=== PATIENT | male | born 1940 | race Caucasian/White ===

== ENCOUNTER 2020-04-23 18:34 | Emergency (ER) | payer MEDICARE, SELFPAY ==
--- NOTE | 2020-04-23 18:44 | ED.GENADULT ---
HPI - General Adult General Chief complaint: Wound/Laceration Stated complaint: laceration Time Seen by Provider: 04/23/20 18:44 Source: patient Mode of arrival: ambulatory Limitations: no limitations History of Present Illness HPI narrative: 79-year-old male patient presents to the [facility] with complaints of a laceration to the third left finger. Patient states he was cutting some ribs with a knife and cut his finger. Patient unknown when his last tetanus was. Patient denies any numbness or tingling to the fingertips. Patient states he is able to bend fingers well. Patient does have history of diabetes. Related Data Home Medications Medication Instructions Recorded Confirmed allopurinol 300 mg tablet 300 mg PO DAILY 09/05/19 01/03/20 amlodipine 10 mg tablet 5 mg PO HS 09/05/19 01/03/20 levothyroxine 100 mcg tablet 100 mcg PO DAILY 09/05/19 01/03/20 oxycodone-acetaminophen 5 mg-325 1 tablet PO Q6H PRN 09/05/19 01/03/20 mg tablet suvorexant 15 mg tablet 15 mg PO ONCE 09/05/19 01/03/20 testosterone 20.25 mg/1.25 gram 2 pump TOPICAL DAILY 09/05/19 01/03/20 (1.62 %) transdermal gel pump candesartan 32 mg PO DAILY 10/04/19 01/03/20 carvedilol 25 mg PO DAILY 10/04/19 01/03/20 loratadine 10 mg PO DAILY 10/04/19 01/03/20 omega-3 fatty acids [Fish Oil 1,000 mg PO HS 10/04/19 01/03/20 Concentrate] aspirin 325 mg tablet 325 mg PO DAILY 11/27/19 01/03/20 Centrum Silver 04/23/20 Metamucil 04/23/20 trazodone 04/23/20 Allergies Allergy/AdvReac Type Severity Reaction Status Date / Time MARIA LUZ Inhibitors Allergy Mild Cough Verified 01/03/20 09:19 lisinopril Allergy Mild Cough Verified 01/03/20 09:19 Review of Systems Review of Systems: Narrative: CONSTITUTIONAL: Denies fever, chills, or sweats. EYES: Denies visual changes, redness, or discharge. ENT: Denies rhinorrhea, congestion, sore throat, or otalgia. CARDIOVASCULAR: Denies chest pain, palpitations, or edema. RESPIRATORY: Denies cough or dyspnea. GASTROINTESTINAL: Denies abdominal pain, nausea, vomiting, or diarrhea. GENITOURINARY: Denies dysuria or hematuria. SKIN: Denies rash or itching. Positive laceration to left third finger MUSCULOSKELETAL: Denies back pain, joint pain, or myalgia. NEUROLOGIC: Denies headache, numbness, or weakness. PSYCHIATRIC: Denies anxiety or depression. 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 Prostate cancer screening Tingling of face Tingling of upper extremity Surgical History Surgical History History of total hip replacement Family History Family History Father Diabetes mellitus Family history of coronary artery disease Family history of diabetes mellitus in first degree relative Mother Family history of cardiovascular disease Family history of malignant neoplasm of brain Family history of heart disease in male family member before age 55 Social History Social History Smoking status: Former smoker Second hand tobacco smoke exposure: No Smoking end date: 11/01/05 Alcohol intake: current Substance use: never Substance use type: does not use Gender identity (if verbalized by the patient): Male Spiritual care concerns: No Agree to blood products: Yes Comment
[2020-04-23 18:45] VITALS: BP 139/75; PULSE 67; RESP 18; TEMP 36.5; O2SAT 96
[2020-04-23] MEDS: TETANUS,DIPHTHERIA,AC PERTUSSIS ADULT (0.5 ML) BOOSTRIX IM (18:53)
== END 2020-04-23 19:15 | disposition home or self-care (01) ==
PROVIDERS: Emergency Provider Nurse Practitioner Family; PCP Internal Medicine
DX: S61.215A Laceration without foreign body of left ring finger without damage to nail, initial encounter (principal); Z95.5 Presence of coronary angioplasty implant and graft; E11.9 Type 2 diabetes mellitus without complications; E03.9 Hypothyroidism, unspecified; Z87.891 Personal history of nicotine dependence; Z79.82 Long term (current) use of aspirin; Z79.84 Long term (current) use of oral hypoglycemic drugs; I25.10 Atherosclerotic heart disease of native coronary artery without angina pectoris; I10 Essential (primary) hypertension; Z85.51 Personal history of malignant neoplasm of bladder; Z86.73 Personal history of transient ischemic attack (TIA), and cerebral infarction without residual deficits; E78.2 Mixed hyperlipidemia; Z96.649 Presence of unspecified artificial hip joint; Z23 Encounter for immunization; W26.0XXA Contact with knife, initial encounter; Y93.G1 Activity, food preparation and clean up
CPT/HCPCS: 90471; 90715; 99213; G0463

== ENCOUNTER 2021-02-25 11:24 | Outpatient (CLI) | payer MEDICARE, SELFPAY ==
--- NOTE | 2021-02-25 11:30 | ECG_ITS ---
Measurements Intervals [place] Rate: 57 P: -18 ME: 238 QRS: -24 QRSD: 110 T: -4 QT: 417 QTc: 409 Interpretive Statements SINUS BRADYCARDIA WITH FIRST DEGREE AV BLOCK BORDERLINE R WAVE PROGRESSION, ANTERIOR LEADS INFERIOR INFARCT, AGE INDETERMINATE BASELINE WANDER- V4 ABNORMAL ECG Electronically Signed On 02-25-2021 12:16:54 CDT by Alfredo Contreras D.O.
[2021-02-25 11:54] LABS: Basophils Absolute Auto 0.1 K/mm3 (0.0-0.1); Basophils Percent Auto 0.8 % (0.2-1.2); Eosinophils Absolute Auto 0.2 K/mm3 (0-0.3); Eosinophils Percent Auto 2.9 % (0-4.4); Hematocrit 44.9 % (42.0-52.0); Hemoglobin 15.1 g/dL (14.0-18.0); Immature Granulocyte Absolute 0.03 K/mm3 (0.00-0.031); Immature Granulocyte Percent A 0.5 % (0-0.5); Immature Platelet Fraction Pct 3.3 % (0.9-11.2); Lymphocytes Absolute Auto 1.28 K/mm3 (0.9-3.2); Lymphocytes Percent Auto 19.5 % (18.3-44.2); Mean Corpuscular HGB Conc 33.6 g/dl (32-36); Mean Corpuscular Hemoglobin 31.7 pg (26-34); Mean Corpuscular Volume 94.1 fl (80-100); Mean Platelet Volume 9.8 fl (7.4-10.4); Monocytes Absolute Auto 0.8 K/mm3 (0.1-0.6); Monocytes Percent Auto 12.5 % (2.6-8.5); Neutrophils Absolute Auto 4.2 K/mm3 (1.3-6.7); Neutrophils Percent Auto 63.8 % (45.5-73.1); Platelet Count Result 145 k/mm3 (150-375); Red Blood Count 4.77 M/mm3 (4.6-6.20); Red Cell Distribution Width 13.6 % (11.5-14.5); White Blood Count 6.6 K/mm3 (4.5-10.0)
[2021-02-25 12:03] LABS: Prothrombin Time 13.6 Seconds (11.1-14.7)
[2021-02-25 12:04] LABS: Partial Thromboplastin Time 30.8 SECONDS (22.3-36.8)
== END 2021-02-25 11:25 | disposition home or self-care (01) ==
LOC: ANHSURGERY 11:31
PROVIDERS: PCP Internal Medicine; Visit Provider Urology
DX: C67.9 Malignant neoplasm of bladder, unspecified (principal); I10 Essential (primary) hypertension; Z01.818 Encounter for other preprocedural examination; I44.0 Atrioventricular block, first degree
CPT/HCPCS: 36415; 85025; 85055; 85610; 85730; 87086; 93005

== ENCOUNTER → 2021-03-01 02:07 | Outpatient (CLI) | payer MEDICARE, SELFPAY ==
[2021-03-01 19:16] LABS: SARS-CoV-2 RNA PCR Negative
== END ==
PROVIDERS: PCP Internal Medicine; Visit Provider Urology
DX: Z01.812 Encounter for preprocedural laboratory examination (principal); Z20.822 Contact with and (suspected) exposure to COVID-19
CPT/HCPCS: C9803; U0003; U0005

== ENCOUNTER 2021-03-04 01:24 | Day surgery (SDC) | payer MEDICARE, SELFPAY ==
[2021-02-20 14:23] VITALS: BMI 39.6
[2021-03-04] VITALS (19 sets, daily range): BP systolic 110–160; BP diastolic 57–90; PULSE 50–64; RESP 12–20; TEMP 35.9–36.7; O2SAT 95–100
[2021-03-04] MEDS: LACTATED RINGERS 1,000 ML 30 ML IV CONT (12:25)
[2021-03-04 12:34] LABS: Glucose Point of Care 145 (65-105)
--- NOTE | 2021-03-04 13:06 | WPDANESEPPF ---
Anes - Initial Pre Proc Eval Procedure: Operation Date: 03/04/21 13:45 Proposed Procedures p Cystoscopy, Bladder Biopsy - Bayron Fajardo MD s Trans Urethral Resection Bladder Tumor - Bayron Fajardo MD Date/Time: 03/04/21 13:06 Surgeon: Bayron Fajardo MD Pre Op Diagnosis: bladder CA Patient Data Age: 80 Gender: M Height: 5 ft 11 in Weight: 128.4 kg Last Vital Signs Temp 36.0 C L 03/04/21 12:30 Pulse 55 L 03/04/21 12:30 Resp 16 03/04/21 12:30 BP 141/74 H 03/04/21 12:30 Pulse Ox 100 03/04/21 12:30 Allergies Allergy/AdvReac Type Severity Reaction Status Date / Time MARIA LUZ Inhibitors AdvReac Mild Cough Verified 03/04/21 12:30 lisinopril AdvReac Mild Cough Verified 03/04/21 12:30 morphine AdvReac Mild Itching Verified 03/04/21 12:30 Home Medications Medication Instructions Recorded Confirmed Type testosterone 20.25 mg/1.25 gram 2 pump TOPICAL DAILY 09/05/19 02/20/21 History (1.62 %) transdermal gel pump loratadine 10 mg PO DAILY 10/04/19 02/20/21 History blood-glucose meter #1 each 11/20/19 01/28/21 Rx aspirin 325 mg tablet 325 mg PO DAILY 11/27/19 03/04/21 History lancets 33 gauge #100 each 01/02/20 01/28/21 Rx Centrum Silver 1 tab-cap PO DAILY 04/23/20 02/20/21 History carvedilol 25 mg tablet 25 mg PO BID #180 tablet 05/08/20 03/04/21 Rx omega-3 fatty acids 1,000 mg 3,000 mg PO DAILY cap 05/16/20 02/20/21 History capsule blood sugar diagnostic #100 each 05/22/20 01/28/21 Rx suvorexant 15 mg tablet 15 mg PO ONCE PRN 09/19/20 02/20/21 History allopurinol 300 mg tablet 300 mg PO DAILY #90 tablet 02/03/21 02/20/21 Rx docusate sodium 100 mg capsule 100 mg PO DAILY PRN 02/04/21 02/20/21 History Tradjenta 5 mg PO QAM 02/20/21 02/20/21 History amlodipine 5 mg PO HS 02/20/21 02/20/21 History amlodipine 10 mg PO QAM 02/20/21 03/04/21 History atorvastatin 80 mg PO DAILY 02/20/21 02/20/21 History canagliflozin-metformin [Invokamet 1 tablet PO QAM 02/20/21 02/20/21 History XR] candesartan 32 mg PO QAM 02/20/21 02/20/21 History celecoxib 200 mg PO DAILY 02/20/21 02/20/21 History glimepiride 2 mg PO BID 02/20/21 02/20/21 History hydrochlorothiazide 25 mg PO QAM 02/20/21 02/20/21 History levothyroxine [Synthroid] 100 mcg PO QAM 02/20/21 03/04/21 History psyllium husk [Metamucil] 1.04 g PO HS 02/20/21 02/20/21 History Laboratory Tests 03/04/21 12:28 POC Capillary Glucose 145 mg/dl H mg/dl (65-105) Patient hx anesthesia problems: none Family hx anesthesia problems: none PMFSH Past Medical History Medical History ASHD (arteriosclerotic heart disease) Benign essential hypertension Bladder cancer Bladder cancer Body mass index (BMI) of 40.1 to 44.9 in adult Colon cancer screening DJD (degenerative joint disease), multiple sites DM type 2 (diabetes mellitus, type 2) Dysphagia Elevated homocysteine Encounter for Medicare annual wellness exam Encounter for routine adult health examination with abnormal findings Encounter for routine adult health examination without abnormal findings Hearing loss History of abdominal aortic aneurysm (AAA) had repaired now being watched History of CVA (cerebrovascular accident) Hospital discharge follow-up Hx of transient ischemic attack (TIA) Hypothyroidism (acquired) Mixed hyperlipidemia 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
--- NOTE | 2021-03-04 13:19 | WPDHPUPDATE1 ---
History and Physical Update Update Date/Time: 03/04/21 13:19 History and Physical has been reviewed, including an updated exam of the patient. There are NO changes in the patient's condition. Risks, benefits, and alternatives have been discussed and questions answered. Patient agrees to proceed with procedure. Proceed with transurethral resection of bladder tumor, bladder biopsy with fulguration
[2021-03-04] MEDS: ceFAZolin 3 GM/D5W 100 ML 100 ML IVPB (13:31)
--- NOTE | 2021-03-04 14:01 | PM.PROC ---
Procedure Note - Detailed Date of procedure: 03/04/21 Pre-op diagnosis: bladder CA Post-op diagnosis: same Procedure performed: Cystoscopy, bladder biopsy, fulguration Description of procedure: Patient is taken the operative suite and correctly identified. Once anesthesia was obtained he was placed in dorsal lithotomy position and prepped and draped usual sterile fashion. Twenty-two Bolivian scope was inserted in the bladder. He does have some lateral lobe hypertrophy. Upon entering the bladder he has an irregularity along the right lateral wall near the bladder neck as well as on the floor. We used a cold cup biopsy to biopsy these areas. We then used a rollerball to fulgurate the areas. Given the location of this lesion it did require quite a bit of torquing of the scope which cause some bleeding in the prostatic fossa. We fulgurated this area. Given this slight use we decided placed an [address] 10 cc were placed in balloon. This was connected to continuous bladder irrigation. If his urine is clear in recovery room he will be discharged home with a Ayala catheter and have it removed on in the office. He Anesthesia: GLMA Surgeon: Bayron Fajardo MD Drains: Yes Packing: No Pathology: yes Complications: No immediate complications Condition: stable Disposition: PACU
[2021-03-04 15:53] LABS: Glucose Point of Care 136 (65-105)
--- NOTE | 2021-03-04 17:25 | ADMGEN ---
This patient, Reynold Machado, was admitted to 3 [facility] Surg Room 320-01. Report received from SOLE Mcknight. Patient/family oriented to hospital policies and general routines including ID bracelet, bed and alarms, visiting hours, pain management, procedures, bathroom and other care routines, personal items, smoking policy, room service/diet, and visiting hours. Information on how to activate the Rapid Response Team has been discussed. Patient/Family are encouraged to report perceived risks to care and to ask questions if they do not understand what they are told or what they should do.
[2021-03-04] MEDS: DEXTROSE 5%/LACTATED RINGERS 1,000 ML 125 ML IV CONT (17:36)
[2021-03-04] MEDS: GLIMEPIRIDE 2 MG TABLET PO (18:35)
[2021-03-04] MEDS: carvediloL 25 MG TABLET PO (18:35)
[2021-03-04] MEDS: HYOSCYAMINE SULFATE 0.125 MG TABLET SUBLINGUAL (18:40)
[2021-03-04] MEDS: HYDROcodone/acetaminophen (*CRX) 5-325 MG TABLET 1 TAB PO (18:41)
[2021-03-04] MEDS: PSYLLIUM POWDER PACKET 1 PACKET PO (20:57)
[2021-03-04] MEDS: DOCUSATE SODIUM 100 MG CAPSULE PO (20:57)
[2021-03-04] MEDS: amLODIPine BESYLATE 5 MG TABLET PO (20:57)
[2021-03-04 22:26] LABS: Glucose Point of Care 246 (65-105)
[2021-03-05] VITALS: BP 143/68; PULSE 78; RESP 20; TEMP 36.3; O2SAT 96
[2021-03-05] MEDS: HYDROcodone/acetaminophen (*CRX) 5-325 MG TABLET 1 TAB PO (01:20)
[2021-03-05 04:00] VITALS: BP 149/70; PULSE 60; RESP 20; TEMP 36.6; O2SAT 93
[2021-03-05 05:59] LABS: Hematocrit 40.5 % (42.0-52.0); Hemoglobin 13.8 g/dL (14.0-18.0)
[2021-03-05 06:18] LABS: Anion Gap 3 mmol/L (8-16); Blood Urea Nitrogen 13 mg/dL (9-20); Calcium 9.2 mg/dL (8.4-10.2); Carbon Dioxide 31 mmol/L (22-30); Chloride 102 mmol/L (98-107); Estimated CRCL calculation 102 ml/min; Estimated Glomerular Filt Rate > 60; Glucose 136 mg/dL (75-110); Potassium 3.8 mmol/L (3.4-5.0); Sodium 136 mmol/L (137-145)
[2021-03-05] MEDS: LEVOTHYROXINE SODIUM 100 MCG TABLET PO (06:18)
--- NOTE | 2021-03-05 07:34 | WPDUROPN2 ---
Progress Note: A&P Assessment and Plan (1) Lesion of bladder: Code(s): N32.9 - Bladder disorder, unspecified Status: Acute Assessment and Plan: Urine is clear at this time. Will have a voiding trial today. Discharged home without Ayala catheter if able to void. Call for path results in 1 week. Subjective Subjective Date/Time Seen: 03/05/21 07:34 Post Op day: 1 ( Cysto with bladder biopsy fulguration) Principal diagnosis: bladder lesion Interval history: Mk is doing well this morning. Urine is clear almost no CBI. Review of Systems Review of Systems: All systems reviewed & are unremarkable except as noted in HPI and below Exam Const: General: cooperative and comfortable Chest: Chest palpation & inspection: normal inspection of the chest Resp: Effort & Inspection: normal respiratory effort Cardio: Rate: regular rate Rhythm: regular rhythm Urinary Catheter: Urinary Catheter: patent and draining and urine clear Objective Data Vital Signs Vital Signs: Vital Signs - 24 hr 03/04/21 12:30 03/04/21 14:04 03/04/21 14:15 Temperature 36.0 C L 36.2 C L Pulse Rate 55 L 55 L 51 L Respiratory Rate 16 15 14 Blood Pressure 141/74 H 160/79 H 156/90 H Pulse Oximetry 100 100 100 03/04/21 14:30 03/04/21 14:45 03/04/21 15:00 Temperature Pulse Rate 52 L 50 L 52 L Respiratory Rate 14 12 14 Blood Pressure 143/72 H 146/76 H 136/73 Pulse Oximetry 96 97 99 03/04/21 15:15 03/04/21 15:30 03/04/21 15:45 Temperature Pulse Rate 56 L 52 L 55 L Respiratory Rate 16 16 16 Blood Pressure 147/71 H 147/71 H 136/61 Pulse Oximetry 97 97 97 03/04/21 15:55 03/04/21 16:25 03/04/21 16:50 Temperature Pulse Rate 52 L 55 L 51 L Respiratory Rate 20 20 20 Blood Pressure 152/57 H 143/62 H 143/61 H Pulse Oximetry 03/04/21 17:10 03/04/21 17:20 03/04/21 17:35 Temperature 36.7 C 36.7 C Pulse Rate 58 L 58 L 64 Respiratory Rate 20 16 16 Blood Pressure 140/62 152/75 H 143/72 H Pulse Oximetry 97 97 05/04/21 18:05 03/04/21 18:35 03/04/21 19:05 Temperature 36.6 C 36.7 C Pulse Rate 56 L 64 59 L Respiratory Rate 16 16 Blood Pressure 133/62 110/67 Pulse Oximetry 98 95 03/04/21 20:00 03/05/21 00:00 03/05/21 04:00 Temperature 35.9 C L 36.3 C L 36.6 C Pulse Rate 51 L 78 60 Respiratory Rate 18 20 20 Blood Pressure 145/63 H 143/68 H 149/70 H Pulse Oximetry 99 96 93 Intake/Output Intake/Output: Intake & Output 03/02/21 03/03/21 03/04/21 03/05/21 23:59 23:59 23:59 23:59 Intake Total 970 800 Output Total 2395 525 Balance -1425 275 Meds/Results Medications: Active Medications Generic Name Dose Route Start Last Admin Trade Name Freq PRN Reason Stop Dose Admin Hydrocodone Bitart/Acetaminophen 1 tab 03/04/21 17:14 03/05/21 01:20 Hydrocodone/Acetaminophen (*Crx) 5-325 Mg Tablet PO 1 tab Q4H PRN Administration Pain Rated 1-6 Allopurinol 300 mg 03/05/21 09:00 Allopurinol 300 Mg Tablet PO DAILY [facility] Amlodipine Besylate 5 mg 03/04/21 21:00 03/04/21 20:57 Amlodipine Besylate 5 Mg Tablet PO 5 mg HS [facility] Administration Amlodipine Besylate 10 mg 03/05/21 09:00 Amlodipine Besylate 5 Mg Tablet PO QAM [facility] Atorvastatin Calcium 80 mg 03/05/21 09:00 Atorvastatin 40 Mg Tablet PO DAILY [facility] Canagliflozin 100 mg 03/05/21 08:00 Canagliflozin 100 Mg Tablet PO DAILY@0800 [facility] Candesartan Cilexetil 32 mg 03/05/21 09:00 Candesartan Cilexetil 16 Mg Tablet PO 04/04/21 09:01 [facility] Car[facility] 25 mg 03/04/21 17:14 03/04/21 18:35 Carvedilol 25 Mg Tablet PO 25 mg BIDWM [facility] Administration Celecoxib 200 mg 03/05/21 09:00 Celecoxib 200 Mg Capsule PO DAILY [facility] Cephalexin HCl 500 mg 03/05/21 13:00 Cephalexin 500 Mg Capsule PO QID [facility] Docusate Sodium 100 mg 03/04/21 17:14 Docusate Sodium 100 Mg Capsule PO DAILY PRN PRN constipation Docusate Sodium 1
[2021-03-05 08:00] VITALS: BP 140/60; PULSE 53; RESP 20; TEMP 36.7; O2SAT 97
[2021-03-05] MEDS: CELECOXIB 200 MG CAPSULE PO (08:55)
[2021-03-05] MEDS: ATORVASTATIN 40 MG TABLET 80 MG PO (08:55)
[2021-03-05] MEDS: CANDESARTAN CILEXETIL 16 MG TABLET 32 MG PO (08:55)
[2021-03-05] MEDS: hydroCHLOROthiazide 25 MG TABLET PO (08:55)
[2021-03-05] MEDS: allopurinoL 300 MG TABLET PO (08:56)
[2021-03-05] MEDS: amLODIPine BESYLATE 5 MG TABLET 10 MG PO (08:56)
[2021-03-05] MEDS: DOCUSATE SODIUM 100 MG CAPSULE PO (08:56)
[2021-03-05 08:57] VITALS: PULSE 60
[2021-03-05] MEDS: metFORMIN HCL XR 500 MG TAB.SR.24H 1000 MG PO (08:57)
[2021-03-05] MEDS: CANAGLIFLOZIN 100 MG TABLET PO (08:57)
[2021-03-05] MEDS: LORATADINE 10 MG TABLET PO (08:57)
[2021-03-05] MEDS: carvediloL 25 MG TABLET PO (08:57)
[2021-03-05] MEDS: GLIMEPIRIDE 2 MG TABLET PO (08:57)
--- NOTE | 2021-03-05 09:33 | WPDANESPN ---
Anes - Prog Note Post-Op Date/Time: 03/05/21 09:33 Cardiovascular status: normal Respiratory status: normal Airway patency: baseline Mental status: baseline Vital Signs: Last Vital Signs Temp 36.7 C 03/05/21 08:00 Pulse 60 03/05/21 08:57 Resp 20 03/05/21 08:00 BP 140/60 03/05/21 08:00 Pulse Ox 97 03/05/21 08:00 Pain Score (VAS): 2/10 I/O: Intake & Output 03/04/21 03/05/21 03/05/21 23:59 07:59 15:59 Intake Total 970 800 360 Output Total 2395 525 Balance -1425 275 360 Laboratory Tests 03/05/21 05:40 03/05/21 05:40 03/04/21 03/04/21 03/04/21 12:28 14:11 20:55 Hgb Hct Sodium Potassium Chloride Carbon Dioxide Anion Gap BUN Creatinine Estim Creat Clear Calc Estimated GFR Glucose POC Capillary Glucose 145 H 136 H 246 H Calcium 03/05/21 03/05/21 05:40 05:40 Hgb 13.8 L Hct 40.5 L Sodium 136 L Potassium 3.8 Chloride 102 Carbon Dioxide 31 H Anion Gap 3 L BUN 13 D Creatinine 0.70 Estim Creat Clear Calc 102 Estimated GFR > 60 Glucose 136 H POC Capillary Glucose Calcium 9.2 Post-procedural complaints: none Patient Feedback: Patient satisfied with anesthetic care.
[2021-03-05 12:00] VITALS: BP 142/61; PULSE 61; RESP 20; TEMP 36.6; O2SAT 98
== END 2021-03-05 14:45 | disposition home or self-care (01) ==
LOC: ANHSURGERY 14:05 → ANH3MEDSUR 17:16
PROVIDERS: PCP Internal Medicine; Visit Provider Urology
PROC: 0TBB8ZX Excision of Bladder, Via Natural or Artificial Opening Endoscopic, Diagnostic (ICD-10-PCS; CPT 52204; principal; 2021-03-04 13:45)
DX: N30.30 Trigonitis without hematuria (principal); N30.20 Other chronic cystitis without hematuria; I10 Essential (primary) hypertension; I25.10 Atherosclerotic heart disease of native coronary artery without angina pectoris; E11.9 Type 2 diabetes mellitus without complications; E03.9 Hypothyroidism, unspecified; E78.2 Mixed hyperlipidemia; Z86.73 Personal history of transient ischemic attack (TIA), and cerebral infarction without residual deficits; Z87.891 Personal history of nicotine dependence; E66.01 Morbid (severe) obesity due to excess calories; Z68.39 Body mass index [BMI] 39.0-39.9, adult; Z85.51 Personal history of malignant neoplasm of bladder; Z79.84 Long term (current) use of oral hypoglycemic drugs; Z79.82 Long term (current) use of aspirin; Z20.822 Contact with and (suspected) exposure to COVID-19
CPT/HCPCS: 52204; 36415; 80048; 82948; 85014; 85018; 85025; 85055; 85610; 85730; 87086; 88305; 93005; A9270; C9803; J0690; J2405; J2704; J3010; J7120; J7121; U0003; U0005

== ENCOUNTER 2021-07-16 09:36 | Outpatient (CLI) | payer MEDICARE, SELFPAY ==
--- NOTE | ~2021-07-16 | CT_ITS ---
EXAMINATION: CT abdomen pelvis wo con DATE: 07/16/2021 10:12 INDICATION: Unspecified abdominal pain TECHNIQUE: Computed tomography (CT) of the abdomen and pelvis was performed without intravenous contr ast. The dose-length product (DLP) was 1550.87 mGy-cm. Automated exposure control and iterative recon struction technique were employed. COMPARISON: 05/11/2019 FINDINGS: The heart size is normal. There is calcified coronary artery atherosclerosis. There is an 1 1 mm groundglass nodule of the lingula with slight increase in size but no solid nodular component. T he liver, spleen, pancreas, gallbladder, and adrenal glands are normal. Cysts of the kidneys measure up to 4.9 cm on the left. There is a stable 3.1 cm fusiform aneurysm of the infrarenal abdominal aort a with changes of endoluminal stent graft repair. Colonic diverticulosis is present without evidence of diverticulitis. No pathologically enlarged abdominal or pelvic lymph nodes are identified. There i s no free intraperitoneal gas or evidence of bowel obstruction. The appendix is normal. There are clarita nges of bilateral total hip arthroplasty IMPRESSION: 1. No CT correlate for the patient's symptoms. Reviewed, dictated and finalized at location A.
[2021-07-16 11:10] LABS: Add Urine Microscopic? YES; Appearance Urine Clear (Clear); Bilirubin Urine Negative (Negative); Blood Urine 3+ (Negative); Color Urine Yellow (Yellow); Glucose Urine UA 3+ mg/dL (Negative); Ketones Urine Negative (Negative); Leukocyte Esterase Ur Negative LEU/UL (Negative); Nitrate Urine Negative (Negative); Protein Urine Negative (Negative); RBC Urine >75 /hpf (0-2); Specific Grav Ur 1.021 (1.001-1.035); Urobilinogen Urine Negative mg/dL (<2.0)
== END 2021-07-16 09:37 | disposition home or self-care (01) ==
PROVIDERS: PCP Internal Medicine; Visit Provider Internal Medicine
DX: R10.9 Unspecified abdominal pain (principal); R30.0 Dysuria
CPT/HCPCS: 74176; 81001; 87086

== ENCOUNTER 2022-01-27 07:25 | Outpatient (CLI) | payer MEDICARE, SELFPAY ==
--- NOTE | ~2022-01-27 | CT_ITS ---
EXAMINATION: CT abdomen pelvis w con DATE: 01/27/2022 07:54 INDICATION: Carcinoma in situ of bladder. TECHNIQUE: Computed tomography (CT) of the abdomen and pelvis was performed with 100 mL Omnipaque 350 intravenous contrast. Automated exposure control and iterative reconstruction technique were employe d. The dose-length product was 1553.90 mGy-cm. COMPARISON: CT abdomen and pelvis 07/16/2021 FINDINGS: The visualized portions of the lung bases demonstrate mild atelectasis. Again seen is an 11 mm part solid nodule in the lingula. Again seen is a 5 mm nodule in left lower lobe. No pleural effu bridger. The heart size is normal. There are coronary artery calcifications. No pericardial effusion. Th ere is diffuse hepatic steatosis. The gallbladder, spleen, pancreas, and adrenal glands are normal. T here are cysts in the kidneys measuring up to 4.1 cm on the right. There is mild right hydronephrosis and hydroureter to the level of the bladder. The distal ureters and bladder are obscured by artifact from the bilateral hip replacements. The bladder is not well distended. There is diverticulosis of t he colon without evidence of diverticulitis. The appendix is normal. There is a 3.4 cm fusiform aneur ysm of infrarenal aorta with stent graft in expected position. There is prominent fat in the inguinal canals that may be hernias. There are no pathologically enlarged lymph nodes. There is no free intra peritoneal fluid. There is severe lumbar spondylosis. There are bridging endplate osteophytes at mult iple levels in the thoracic spine, consistent with diffuse idiopathic skeletal hyperostosis (DISH). IMPRESSION: 1. Mild right hydronephrosis and hydroureter, new from 07/16/2021. 2. Stable 11 mm part solid nodule in the lingula, likely benign. Noncontrast low-dose chest CT is rec ommended in one year. Reviewed, dictated and finalized at location A. IMPRESSION: 1. Mild right hydronephrosis and hydroureter, new from 07/16/2021. 2. Stable 11 mm part solid nodule in the lingula, likely benign. Noncontrast lo w-dose chest CT is recommended in one year.
[2022-01-27 07:47] LABS: Estimated Glomerular Filt Rate > 60
== END 2022-01-27 07:26 | disposition home or self-care (01) ==
PROVIDERS: PCP Internal Medicine; Visit Provider Urology
DX: D09.0 Carcinoma in situ of bladder (principal)
CPT/HCPCS: 74177; Q9967

== ENCOUNTER 2022-02-06 09:31 | Outpatient (CLI) | payer MEDICARE, SELFPAY ==
[2022-02-06 09:59] LABS: Basophils Absolute Auto 0.1 K/mm3 (0.0-0.1); Basophils Percent Auto 0.7 % (0.2-1.2); Eosinophils Absolute Auto 0.1 K/mm3 (0-0.3); Eosinophils Percent Auto 1.5 % (0-4.4); Hematocrit 47.6 % (42.0-52.0); Hemoglobin 15.4 g/dL (14.0-18.0); Immature Granulocyte Absolute 0.02 K/mm3 (0.00-0.031); Immature Granulocyte Percent A 0.3 % (0-0.5); Immature Platelet Fraction Pct 3.5 % (0.9-11.2); Lymphocytes Absolute Auto 1.34 K/mm3 (0.9-3.2); Lymphocytes Percent Auto 19.8 % (18.3-44.2); Mean Corpuscular HGB Conc 32.4 g/dl (32-36); Mean Corpuscular Hemoglobin 31.4 pg (26-34); Mean Corpuscular Volume 97.1 fl (80-100); Mean Platelet Volume 9.8 fl (7.4-10.4); Monocytes Absolute Auto 0.8 K/mm3 (0.1-0.6); Monocytes Percent Auto 11.4 % (2.6-8.5); Neutrophils Absolute Auto 4.5 K/mm3 (1.3-6.7); Neutrophils Percent Auto 66.3 % (45.5-73.1); Platelet Count Result 136 k/mm3 (150-375); Red Cell Distribution Width 14.1 % (11.5-14.5); White Blood Count 6.8 K/mm3 (4.5-10.0)
[2022-02-06 10:07] LABS: Prothrombin Time 13.2 Seconds (11.1-14.7)
[2022-02-06 10:08] LABS: Partial Thromboplastin Time 28.9 SECONDS (22.3-36.8)
[2022-02-06 10:09] LABS: Anion Gap 7 mmol/L (8-16); Blood Urea Nitrogen 17 mg/dL (9-20); Calcium 9.6 mg/dL (8.4-10.2); Carbon Dioxide 32 mmol/L (22-30); Chloride 101 mmol/L (98-107); Estimated Glomerular Filt Rate > 60; Glucose 158 mg/dL (65-110); Potassium 4.4 mmol/L (3.4-5.0); Sodium 140 mmol/L (137-145)
== END 2022-02-06 09:32 | disposition home or self-care (01) ==
LOC: ANHSURGERY 09:36
PROVIDERS: PCP Internal Medicine; Visit Provider Urology
DX: Z01.812 Encounter for preprocedural laboratory examination (principal); C67.9 Malignant neoplasm of bladder, unspecified; Z51.81 Encounter for therapeutic drug level monitoring; Z79.899 Other long term (current) drug therapy
CPT/HCPCS: 36415; 80048; 85025; 85055; 85610; 85730; 87086

== ENCOUNTER 2022-02-10 01:30 | Day surgery (SDC) | payer MEDICARE, SELFPAY ==
--- NOTE | 2022-02-02 15:01 | PC.NURSE ---
Report to the Outpatient Waiting Room, entrance under the green pavilion located off [facility], at time _0945 on date __02/10/22 . OR Time: _1145 . - You and your visitor will be asked a series of questions to screen for COVID 19 for your protection. - A mask is required within the hospital. Preoperative COVID Testing Requirements: No COVID Test needed if: (proof is required; if not received patient will have Rapid Test prior to entry) - Patient has received COVID Vaccine at least 14 days prior to procedure date or - Patient has positive COVID test result within last 90 days of surgery date. COVID Test needed if above criteria is not met If not COVID vaccinated a COVID test must be conducted within 72 hours of surgery and patient is asked to isolate self from time of testing until procedure. You will go to the [facility] for your COVID testing. The [facility] is located at the corner of [address] [facility]. You will only be called if COVID results are positive and your surgeon may reschedule your elective surgery date. Patients may have clear liquids (water, carbonated beverages, clear teas, apple juice) until 3 hours prior to surgery with a maximum of 20 ounces. - No food from midnight until time of surgery - Infants may have breast milk until 4 hours before surgery, formula 6 hours prior to surgery. - Children will be allowed to drink immediately following surgery. If applicable, please bring a bottle or sippy cup to assist with drinking. Juice, water, soda, and popsicles are readily available. For infants on formula, please bring formula the day of surgery. Pacifiers are allowed. Take the following medications with a SIP of water the morning of surgery: __AMLODIPINE,CARVEDILOL,LEVOTHYROXINE Medications to discontinue per physician ___ASPIRIN AND ALL VITAMINS AND SUPPLEMENTS PER DR WARNER Date to take last dose_02/02/22 Please no make-up, nail latvian, hairspray, perfume, deodorant, or body powder the day of surgery. No jewelry (including any body piercings) or valuables the day of surgery, leave them at home. Please take a shower or bath the night before, or the morning of, surgery with an antibacterial soap. Wear comfortable, loose fitting clothing. Children are encouraged to wear pajamas. - Jewelry must be removed prior to entering the operating room. Rings and piercings that are not removed may be cut off. - The hospital will not accept responsibility for valuables. - Please leave all valuables, including medications, at home the day of surgery. If you are going home after surgery, a licensed dray driver must drive you home. - NO public transportation without another adult. - We recommend that an adult stay with you for 24 hours following discharge. - We also recommend that you do not drive, make important decision, drink alcoholic beverages, or take any drugs that were not prescribed by your health care provider for at least 24 hours after your discharge time. One visitor will be allowed to accompany the patient into the hospital. Patients visitor will be instructed to remain with patient at all times or leave the building. We will allow the visitor to come back to the postoperative area when patient is ready. Follow any additional instructions given to you from your surgeon. Telephone instructions given to __PATIENT and asked if any additional questions and then verbalized understanding. Patient advised to call surgeon office or pre surgery nurse liaison [phone] if any additional questions.
[2022-02-02 15:12] VITALS: BMI 39.7
[2022-02-10] VITALS (14 sets, daily range): BP systolic 119–160; BP diastolic 60–84; PULSE 55–78; RESP 12–18; TEMP 35.9–36.8; O2SAT 95–100
--- NOTE | ~2022-02-10 | XR_ITS ---
EXAMINATION: XR retrograde pyelo w/stent RT EXAM DATE: 02/10/2022 11:59 INDICATION: Right-sided obstructive nephropathy, stent placement. TECHNIQUE: Fluoroscopy used during XR retrograde pyelo w/stent RT performed by Dr. Bayron grey MD, urologist. The radiologist Smith Pathak M.D. dictating this report of the image(s) availabl e was not present for the procedure. Total fluoroscopic time of 38 seconds. The DAP for this proced ure was 1.4 mGym2. A total of 17 images sent to PACS from the exam. FINDINGS: Right ureter was cannulated, injected. Severe right hydroureter to the tapered UVJ, modera te caliectasis. A double-J ureteral stent was placed Correlate with procedure note. IMPRESSION: Severe right hydroureter, moderate caliectasis. Stent in position. Reviewed, dictated and finalized at location B.
--- NOTE | 2022-02-10 10:02 | WPDHPUPDATE1 ---
History and Physical Update Update Date/Time: 02/10/22 10:02 History and Physical has been reviewed, including an updated exam of the patient. There are NO changes in the patient's condition. Risks, benefits, and alternatives have been discussed and questions answered. Patient agrees to proceed with procedure.
[2022-02-10] MEDS: LACTATED RINGERS 1,000 ML 30 ML IV CONT (10:19)
--- NOTE | 2022-02-10 10:22 | WPDANESEPPF ---
Anes - Initial Pre Proc Eval Procedure: Operation Date: 02/10/22 11:45 Proposed Procedures p Trans Urethral Resection Prostate - Bayron Fajardo MD s Trans Urethral Resection Bladder Tumor - Bayron Fajardo MD s Cystoscopy, Possible Right Ureteroscopy, Possible Retrograde Pyelogram, Possible Right Stent Placement - Bayron Fajardo MD Date/Time: 02/10/22 10:22 Surgeon: Bayron Fajardo MD Pre Op Diagnosis: Bladder Ca, Elev PSA, BPH,Retention of Urine Patient Data Age: 81 Gender: M Height: 1.8 m Weight: 131.8 kg Allergies Allergy/AdvReac Type Severity Reaction Status Date / Time MARIA LUZ Inhibitors AdvReac Mild Cough Verified 02/10/22 09:50 lisinopril AdvReac Mild Cough Verified 02/10/22 09:50 morphine AdvReac Mild Itching Verified 02/10/22 09:50 Home Medications Medication Instructions Recorded Confirmed Type testosterone 20.25 mg/1.25 gram 2 pump TOPICAL DAILY 09/05/19 02/02/22 History (1.62 %) transdermal gel pump loratadine 10 mg PO DAILY 10/04/19 02/02/22 History blood-glucose meter #1 each 11/20/19 10/30/21 Rx aspirin 325 mg tablet 325 mg PO DAILY 11/27/19 02/02/22 History lancets 33 gauge #100 each 01/02/20 10/30/21 Rx Centrum Silver 1 tab-cap PO DAILY 04/23/20 02/02/22 History omega-3 fatty acids 1,000 mg 3,000 mg PO DAILY cap 05/16/20 02/02/22 History capsule suvorexant 15 mg tablet 15 mg PO PRN PRN 09/19/20 02/02/22 History docusate sodium 100 mg capsule 100 mg PO DAILY PRN 02/04/21 02/02/22 History psyllium husk [Metamucil] 1.04 g PO HS 02/20/21 02/02/22 History celecoxib 200 mg capsule See Rx Instructions .ROUTE 03/27/21 02/02/22 Rx .COMPLEX #90 capsule blood sugar diagnostic #100 each 04/18/21 10/30/21 Rx candesartan 32 mg tablet See Rx Instructions .ROUTE 05/01/21 02/02/22 Rx .COMPLEX #90 tablet carvedilol 25 mg tablet 25 mg PO BID #180 tablet 05/01/21 02/02/22 Rx amlodipine 10 mg tablet See Rx Instructions .ROUTE 07/22/21 02/02/22 Rx .COMPLEX #135 tablet dapagliflozin 10 mg-metformin ER 1 tablet PO DAILY 10/15/21 02/02/22 History 1,000 mg tablet,extended release 24hr glimepiride 2 mg tablet See Rx Instructions .ROUTE 10/28/21 02/02/22 Rx .COMPLEX #180 tablet hydrochlorothiazide 25 mg tablet See Rx Instructions .ROUTE 10/28/21 02/02/22 Rx .COMPLEX #90 tablet levothyroxine 100 mcg tablet See Rx Instructions .ROUTE 10/28/21 02/02/22 Rx .COMPLEX #90 tablet linagliptin 5 mg tablet See Rx Instructions .ROUTE 10/29/21 02/02/22 Rx .COMPLEX #90 tablet lorazepam 1 mg tablet 1 mg PO QHS #60 tablet 01/23/22 02/02/22 Rx atorvastatin 80 mg tablet See Rx Instructions .ROUTE 01/26/22 02/02/22 Rx .COMPLEX #90 tablet allopurinol 300 mg tablet See Rx Instructions .ROUTE 01/28/22 02/02/22 Rx .COMPLEX #90 tablet ezetimibe 0.5 mg PO DAILY 02/02/22 02/02/22 History Patient hx anesthesia problems: none Family hx anesthesia problems: none Results Review: All pre-operative results and documents have been reviewed as part of the pre-operative evaluation. FORMERLY [facility] Past Medical History Medical History Abdominal pain ASHD (arteriosclerotic heart disease) Benign essential hypertension Bladder cancer Bladder cancer Body mass index (BMI) of 40.1 to 44.9 in adult Chronic low back pain Colon cancer screening DJD (degenerative joint disease), multiple sites DM type 2 (diabetes mellitus, type 2) Dysphagia Dysuria Elevated homocysteine Encounter for Medicare annual wellness exam Encounter for routine adult health examination with abnormal findings Encounter for routine adult health examination without abnormal findings Hearing loss History of abdominal aortic aneurysm (AAA) had repaired now being watched History of CVA (cerebrovascular accident) Hospital discharge follow-up Hx of transient ischemic attack (TIA) Hypothyroidism (acquired) Mixed hyperlipidemia On manager intermediate drug therapy LOUANN (obstructive slee
[2022-02-10 10:26] LABS: Glucose Point of Care 178 mg/dl (65-105)
[2022-02-10] MEDS: ceFAZolin 3 GM/D5W 100 ML 100 ML IVPB (11:12)
[2022-02-10] MEDS: LIDOCAINE HCL 2% GEL UROJET 10 ML PKG MUCOUS MEM (11:35)
--- NOTE | 2022-02-10 12:21 | P.OP_ITS ---
Procedure Note - Detailed Date of Procedure 02/10/22 Pre-op Diagnosis Bladder Ca, Elev PSA, BPH,Retention of Urine Post-op Diagnosis Same (Meatal stenosis/stricture,) Procedure Performed Urethral dilation, cystoscopy, transurethral resection of bladder lesion with unroofing the right ureteral orifice, right distal ureteroscopy, right ureteral stent placement 6 Wallisian contour stent, transurethral resection of prostate Surgeon Bayron Fajardo MD Anesthesia General Description of Procedure Patient is taken to the operative suite correctly identified. Once anesthesia was obtained was placed in dorsal lithotomy position prepped draped usual sterile fashion. We could not place a 24 Wallisian resectoscope sheath in. We thus dilated the meatus up to 28 Wallisian. A cystoscope was then inserted into the bladder. He has some residual prostatic tissue at the apex. In addition he has some friable tissue on the right with some necrotic tissue. Upon entering the bladder the left ureteral orifice is visualized. Were unable locate the right ureteral orifice as the right fany trigone is raised and edematous. At this point a 24 Wallisian resectoscope sheath was inserted. We had to unroof the right ureteral orifice was resection of this edematous area. This tissue was sent for pathologic review. We then placed a rigid ureteral scope into the bladder was able to manipulate a guidewire up into the kidney. The rigid ureteral scope was inserted into the orifice. I did not see any papillary lesions in the intramural ureter at this time. We shot a pyelogram through the ureteral scope and noted that the ureter was dilated down to the intramural ureter. We advanced the wire all the way up into the kidney. We could not advance the scope any further at this time. We then placed a [place] over the guidewire and did a pyelogram to confirm placement of the wire in the renal pelvis. Six Wallisian contour stent was then placed with the proximal end coiled in the renal pelvis and the distal in the bladder. We then exchanged this out for a resectoscope sheath again. We went ahead and resected the residual prostatic tissue and sent this as a separate tissue at this time also. Fulguration was used for hemostasis. 2% viscous lidocaine was then inserted into the urethra. Twenty-four [address] was placed with 20 cc in the balloon. Patient was taken recovery stable condition. Will plan on removing the Ayala in the next 3-4 days. Stent will remain in for minimum of 6 weeks. Patient will require repeat endoscopy in the OR for further evaluation of the distal ureter. Estimated Blood Loss 20 Drains Yes Packing No Pathology Yes Complications No immediate complications Condition Stable Disposition PACU
--- NOTE | 2022-02-10 13:59 | ADMGEN ---
This patient, Reynold Machado, was admitted to Medical Room 241-01 from PACU. Patient/family oriented to hospital policies and general routines including ID bracelet, bed and alarms, visiting hours, pain management, procedures, bathroom and other care routines, personal items, smoking policy, room service/diet, and visiting hours. Information on how to activate the Rapid Response Team has been discussed. Patient/Family are encouraged to report perceived risks to care and to ask questions if they do not understand what they are told or what they should do.
[2022-02-10] MEDS: HYDROcodone/acetaminophen (*CRX) 5-325 MG TABLET 1 TAB PO ×3 (14:42→22:40)
[2022-02-10] MEDS: DEXTROSE 5%/LACTATED RINGERS 1,000 ML 125 ML IV CONT (14:42)
[2022-02-10 16:25] LABS: Glucose Point of Care 365 mg/dl (65-105)
[2022-02-10] MEDS: GLIMEPIRIDE 2 MG TABLET PO (17:10)
[2022-02-10] MEDS: INSULIN ASPART (*BKC) 100 UNITS/ML SUB-Q (17:10)
[2022-02-10] MEDS: DOCUSATE SODIUM 100 MG CAPSULE PO ×2 (18:35→20:14)
[2022-02-10] MEDS: carvediloL 25 MG TABLET PO (20:14)
[2022-02-10] MEDS: amLODIPine BESYLATE 2.5 MG TABLET PO (20:15)
[2022-02-10 20:49] LABS: Glucose Point of Care 229 mg/dl (65-105)
[2022-02-10] MEDS: LORazepam (*CRX) 1 MG TABLET PO (22:37)
[2022-02-11 00:52] VITALS: BP 115/66; PULSE 67; RESP 18; TEMP 36.4; O2SAT 96
[2022-02-11 05:18] VITALS: BP 130/70; PULSE 68; RESP 16; TEMP 36.5; O2SAT 96
[2022-02-11 05:30] LABS: Hemoglobin 13.9 g/dL (14.0-18.0)
[2022-02-11] MEDS: LEVOTHYROXINE SODIUM 100 MCG TABLET PO (05:53)
[2022-02-11 05:56] LABS: Anion Gap 6 mmol/L (8-16); Blood Urea Nitrogen 15 mg/dL (9-20); Calcium 8.8 mg/dL (8.4-10.2); Carbon Dioxide 26 mmol/L (22-30); Chloride 102 mmol/L (98-107); Estimated CRCL calculation 102 ml/min; Estimated Glomerular Filt Rate > 60; Glucose 193 mg/dL (65-110); Potassium 3.9 mmol/L (3.4-5.0); Sodium 134 mmol/L (137-145)
[2022-02-11] MEDS: HYDROcodone/acetaminophen (*CRX) 5-325 MG TABLET 1 TAB PO ×2 (06:43→13:16)
[2022-02-11] MEDS: DOCUSATE SODIUM 100 MG CAPSULE PO (06:43)
--- NOTE | 2022-02-11 06:44 | PC.NURSE ---
has continued to have some oozing, bleeding from penis when moving from chair to bed etc.
[2022-02-11 07:43] LABS: Glucose Point of Care 172 mg/dl (65-105)
[2022-02-11 08:00] VITALS: BP 156/64
[2022-02-11] MEDS: GLIMEPIRIDE 2 MG TABLET PO ×2 (08:32→16:19)
[2022-02-11] MEDS: EMPAGLIFLOZIN 25 MG TABLET PO (08:32)
[2022-02-11] MEDS: metFORMIN HCL XR 500 MG TAB.SR.24H 1000 MG PO (08:32)
[2022-02-11] MEDS: allopurinoL 300 MG TABLET PO (08:32)
[2022-02-11] MEDS: amLODIPine BESYLATE 5 MG TABLET 10 MG PO (08:32)
[2022-02-11 08:33] VITALS: PULSE 65
[2022-02-11] MEDS: ATORVASTATIN 40 MG TABLET 80 MG PO (08:33)
[2022-02-11] MEDS: CANDESARTAN CILEXETIL 16 MG TABLET 32 MG PO (08:33)
[2022-02-11] MEDS: EZETIMIBE 10 MG TABLET PO (08:33)
[2022-02-11] MEDS: carvediloL 25 MG TABLET PO (08:33)
[2022-02-11] MEDS: CEPHALEXIN 500 MG CAPSULE PO ×3 (08:33→16:19)
[2022-02-11] MEDS: LORATADINE 10 MG TABLET PO (08:34)
[2022-02-11] MEDS: hydroCHLOROthiazide 25 MG TABLET PO (08:34)
[2022-02-11 09:50] VITALS: BP 144/62; PULSE 66; RESP 12; TEMP 36.3; O2SAT 99
--- NOTE | 2022-02-11 09:54 | WPDUROPN2 ---
Progress Note: A&P Assessment and Plan (1) Bladder cancer: Qualifiers: Bladder location: unspecified site Qualified Code(s): C67.9 - Malignant neoplasm of bladder, unspecified Code(s): C67.9 - Malignant neoplasm of bladder, unspecified Status: Acute (2) BPH (benign prostatic hyperplasia): Qualifiers: Lower urinary tract symptom presence: unspecified whether lower urinary tract symptoms present Qualified Code(s): N40.0 - Benign prostatic hyperplasia without lower urinary tract symptoms Code(s): N40.0 - Benign prostatic hyperplasia without lower urinary tract symptoms Status: Acute (3) Urethral stricture: Code(s): N35.919 - Unspecified urethral stricture, male, unspecified site Status: Acute Assessment and Plan: Urethral bleeding is expected d/t the extent of his procedure, it should taper off over time. CBI turned off, will monitor urine and if it remains light pink and/or clear we will keep it off. If urine begins to become bloody again, restart CBI. Patient is doing well with oral narcotics for pain. We will watch him over the afternoon and re-assess later for discharge if urethral bleeding continues to remain stable and urine remains clear off CBI. Subjective Subjective Date/Time Seen: 02/11/22 09:54 POD #1 Urethral dilation, cystoscopy, transurethral resection of bladder lesion with unroofing the right ureteral orifice, right distal ureteroscopy, right ureteral stent placement 6 Zimbabwean contour stent, transurethral resection of prostate. Urine is very clear on low CBI, patient has some urethral bleeding, which worsens with activity. He is tolerating pain with oral narcotics, he is sitting up in a chair and tolerating his diet well. Review of Systems Cardiovascular: Cardiovascular: Denies chest pain Respiratory: Respiratory: Reports no additional respiratory complaints Gastrointestinal: Gastrointestinal: Denies abdominal pain, Denies nausea and Denies vomiting Genitourinary: Genitourinary: Reports hematuria, Reports genital pain and Denies flank pain Exam Resp: Effort & Inspection: normal respiratory effort Cardio: Rate: regular rate GI: GI Palp: Yes Soft to palpation and No Tenderness to palpation present (GI) : General: Yes no CVA tenderness Penis: No Localized penile swelling present Meatus: Blood at meatus present Urinary Catheter: Urinary Catheter: patent and draining, urine clear and urine red Extrem: General: no edema Objective Data Vital Signs Vital Signs: Vital Signs - 24 hr 02/10/22 12:22 02/10/22 12:30 02/10/22 12:45 Temperature 97.1 F L Pulse Rate 66 60 62 Respiratory Rate 18 12 12 Blood Pressure 125/75 132/63 151/64 H Pulse Oximetry 100 100 100 02/10/22 13:00 02/10/22 13:15 02/10/22 13:30 Temperature Pulse Rate 55 L 75 62 Respiratory Rate 16 16 18 Blood Pressure 138/70 153/65 H 158/70 H Pulse Oximetry 96 96 95 02/10/22 13:55 02/10/22 14:10 02/10/22 14:34 Temperature 97.1 F L 97.3 F L Pulse Rate 59 L 57 L 57 L Respiratory Rate 18 16 16 Blood Pressure 147/60 H 138/60 Pulse Oximetry 97 97 97 02/10/22 14:40 02/10/22 15:40 02/10/22 20:12 Temperature 97.3 F L 96.6 F L 98.2 F Pulse Rate 73 78 72 Respiratory Rate 16 16 16 Blood Pressure 154/69 H 119/84 138/74 Pulse Oximetry 98 96 95 02/10/22 20:14 02/11/22 00:52 02/11/22 05:18 Temperature 97.6 F 97.7 F Pulse Rate 72 67 68 Respiratory Rate 18 16 Blood Pressure 115/66 130/70 Pulse Oximetry 96 96 02/11/22 08:00 02/11/22 08:33 Temperature Pulse Rate 65 Respiratory Rate Blood Pressure 156/64 H Pulse Oximetry Intake/Output Intake/Output: Intake & Output 02/08/22 02/09/22 02/10/22 02/11/22 23:59 23:59 23:59 23:59 Intake Total 2690 750 Output Total 6000 6820 Balance -3310 -1576 Meds/Results Medications: Active Medications Generic Name Dose Route Start Last Admin Trade Name Freq PRN Reason Stop Dose Ad
--- NOTE | 2022-02-11 10:27 | PCCCNOTE ---
On 02/11/22, the student, [Missy Vogel], provided care and completed [facility] documentation on this patient. I have reviewed the student's documentation and agree with the findings.
[2022-02-11 11:21] LABS: Glucose Point of Care 228 mg/dl (65-105)
[2022-02-11] MEDS: INSULIN ASPART (*BKC) 100 UNITS/ML SUB-Q (12:02)
--- NOTE | 2022-02-11 12:40 | PC.NURSE ---
Co Chairman reviewed and agrees with student nurse charting and assessment.
[2022-02-11 13:10] VITALS: BP 125/66; PULSE 61; RESP 14; TEMP 36.6; O2SAT 99
[2022-02-11 16:22] LABS: Glucose Point of Care 158 mg/dl (65-105)
== END 2022-02-11 17:13 | disposition home or self-care (01) ==
LOC: ANHSURGERY 09:40 → ANH2MED 13:50
PROVIDERS: PCP Internal Medicine; Visit Provider Urology
PROC: 0VT08ZZ Resection of Prostate, Via Natural or Artificial Opening Endoscopic (ICD-10-PCS; CPT 52601; principal; 2022-02-10 11:45)
PROC: 0TBB8ZZ Excision of Bladder, Via Natural or Artificial Opening Endoscopic (ICD-10-PCS; CPT 52601; 2022-02-10 11:45)
PROC: (CPT 52352; 2022-02-10 11:45)
DX: N40.1 Benign prostatic hyperplasia with lower urinary tract symptoms (principal); R33.8 Other retention of urine; N13.30 Unspecified hydronephrosis; N28.89 Other specified disorders of kidney and ureter; N30.80 Other cystitis without hematuria; N35.911 Unspecified urethral stricture, male, meatal; Z85.51 Personal history of malignant neoplasm of bladder; I25.10 Atherosclerotic heart disease of native coronary artery without angina pectoris; E11.9 Type 2 diabetes mellitus without complications; E78.2 Mixed hyperlipidemia; E03.9 Hypothyroidism, unspecified; Z86.73 Personal history of transient ischemic attack (TIA), and cerebral infarction without residual deficits; Z79.82 Long term (current) use of aspirin; Z79.84 Long term (current) use of oral hypoglycemic drugs; Z87.891 Personal history of nicotine dependence; E66.01 Morbid (severe) obesity due to excess calories; Z68.41 Body mass index [BMI] 40.0-44.9, adult
CPT/HCPCS: 52601; 52234; 52290; 36415; 74420; 80048; 82948; 85014; 85018; 85025; 85055; 85610; 85730; 87086; 88305; A9270; C1758; C1769; C2617; J0690; J1100; J1815; J2405; J2704; J3010; J7120; J7121; Q9966

== ENCOUNTER 2022-10-30 10:19 | Outpatient (CLI) | payer MEDICARE, SELFPAY ==
--- NOTE | ~2022-10-30 | XR_ITS ---
Clinical Indication: Shortness of breath PA and lateral views of the chest: Comparison: 03/09/2016 Findings: The lungs are clear, without evidence of focal consolidation or pleural effusion. Cardiome diastinal silhouette is within normal limits. Bones and soft tissues are unremarkable. Impression: Normal chest. Reviewed, dictated and finalized at [facility]. TY TRAPPER Impression: Normal chest.
[2022-10-30 10:47] LABS: Basophils Percent Auto 0.5 % (0.2-1.2); Eosinophils Absolute Auto 0.1 K/mm3 (0-0.3); Eosinophils Percent Auto 1.7 % (0-4.4); Hematocrit 45.3 % (42.0-52.0); Hemoglobin 14.9 g/dL (14.0-18.0); Immature Granulocyte Absolute 0.02 K/mm3 (0.00-0.031); Immature Granulocyte Percent A 0.3 % (0-0.5); Immature Platelet Fraction Pct 3.9 % (0.9-11.2); Lymphocytes Absolute Auto 1.07 K/mm3 (0.9-3.2); Lymphocytes Percent Auto 18.5 % (18.3-44.2); Mean Corpuscular HGB Conc 32.9 g/dl (32-36); Mean Corpuscular Volume 94.4 fl (80-100); Mean Platelet Volume 10.2 fl (7.4-10.4); Monocytes Absolute Auto 0.7 K/mm3 (0.1-0.6); Neutrophils Absolute Auto 3.9 K/mm3 (1.3-6.7); Platelet Count Result 124 k/mm3 (150-375); Red Cell Distribution Width 14.5 % (11.5-14.5); White Blood Count 5.8 K/mm3 (4.5-10.0)
[2022-10-30 10:49] LABS: Anion Gap 7 mmol/L (8-16); Blood Urea Nitrogen 14 mg/dL (9-20); Calcium 9.1 mg/dL (8.4-10.2); Carbon Dioxide 27 mmol/L (22-30); Chloride 104 mmol/L (98-107); Estimated Glomerular Filt Rate > 60; Glucose 196 mg/dL (65-110); Potassium 4.1 mmol/L (3.4-5.0); Sodium 138 mmol/L (137-145)
[2022-10-30 11:01] LABS: NT Pro B Type Natriuretic Pept 52 pg/mL (5-100)
== END 2022-10-30 10:20 | disposition home or self-care (01) ==
LOC: ANHLAB 10:21
PROVIDERS: PCP Internal Medicine; Visit Provider Internal Medicine
DX: R06.02 Shortness of breath (principal); R06.09 Other forms of dyspnea; Z79.899 Other long term (current) drug therapy; I25.10 Atherosclerotic heart disease of native coronary artery without angina pectoris
CPT/HCPCS: 36415; 71046; 80048; 83880; 85025; 85055

== ENCOUNTER 2022-11-20 07:33 | Outpatient (CLI) | payer MEDICARE, SELFPAY ==
--- NOTE | 2022-11-20 07:49 | ECHO_ITS ---
Patient Info Name: Reynold Machado Age: 82 years : 1940 Gender: Male Ht: 71 in Wt: 290 lbs BSA: 2.62 m2 HR: 86 bpm BP: 126 / 73 mmHg Technical Quality: Fair Exam Date: 11/20/2022 7:55 AM Exam Location: [facility] Pulmonary Patient Status: Outpatient Admit Date: 11/20/2022 Staff Ordering Physician: Roberto Saleem MD Land Management Supervisor: Zakia Perez RDCS Attending Provider: Roberto Saleem MD Referring Physician: Harper HAN; Exam Type: CA echo doppler color flow Study Info Indications R06.02 - Shortness of breath Complete two-dimensional, color flow and Doppler transthoracic echocardiogram is performed. Summary 1. Complete two-dimensional, color flow and Doppler transthoracic echocardiogram is performed. 2. Left ventricular chamber dimension is normal. 3. Left ventricular systolic function is normal, estimated at 60-65%. 4. The left ventricular diastolic function is grade I diastolic dysfunction. 5. E/e' 7 is not elevated. 6. Global longitudinal strain is abnormal at -13.1%. 7. There is mild aortic valve sclerosis. 8. No pulmonary hypertension, estimated pulmonary arterial systolic pressure is 17 mmHg. Left Ventricle E/e' 7 is not elevated. Global longitudinal strain is abnormal at -13.1%. Left ventricular chamber dimension is normal. Left ventricular systolic function is normal, estimated at 60-65%. The left ventricular diastolic function is grade I diastolic dysfunction. Right Ventricle Right ventricular systolic function is normal and with normal TAPSE 1.9 cm. Right ventricular chamber dimension is normal. Left Atria Left atrial chamber dimension is normal. Right Atria Right atrial chamber dimension is normal. Aortic Valve The aortic valve is trileaflet. There is mild aortic valve sclerosis. There is no aortic valve stenosis. There is no aortic valve regurgitation. Pulmonic Valve There is no pulmonic regurgitation. Mitral Valve There is no mitral valve stenosis. There is no mitral valve regurgitation. Tricuspid Valve There is no tricuspid valve regurgitation. No pulmonary hypertension, estimated pulmonary arterial systolic pressure is 17 mmHg. Pericardium/Pleural There is no pericardial effusion. Inferior Vena Cava Normal inferior vena cava with >50% collapse upon inspiration consistent with normal right atrial pressure, 5 mmHg. Aorta The aortic root size at the sinus of Valsalva is normal. Left Ventricular Outflow Tract Name Value Normal LVOT 2D LVOT Diameter 2.0 cm LVOT Doppler LVOT Peak Gradient 6 mmHg LVOT Mean Gradient 4 mmHg LVOT VTI 24 cm LVOT VTI/AV VTI Ratio 0.9 LVOT Stroke Volume 74 ml LVOT CO 5.4 l/min LVOT CI 2.0 l/min/m2 Pulmonic Valve Name Value Normal
== END 2022-11-20 07:34 | disposition home or self-care (01) ==
LOC: ANHCARD 07:35
PROVIDERS: PCP Internal Medicine; Visit Provider Internal Medicine
DX: R06.02 Shortness of breath (principal)
CPT/HCPCS: 93306

== ENCOUNTER 2022-11-25 10:08 | Outpatient (CLI) | payer MEDICARE, SELFPAY ==
--- NOTE | ~2022-11-25 | NM_ITS ---
EXAMINATION: NM boyd stress w perfusion DATE: 11/25/2022 12:11 INDICATION: Dyspnea on exertion. Chest discomfort. TECHNIQUE: Rest images were obtained following intravenous administration of 9.4 mCi Tc99m tetrofosmi n (Myoview). The patient was infused intravenously with Lexiscan (regadenoson). Then, 30.7 mCi Tc99m tetrofosmin (Myoview) was administered intravenously, and supine and prone stress images were obtaine d. Data was reconstructed into short axis and horizontal and vertical long axis SPECT images. Gated S PECT images were also obtained. COMPARISON: Myocardial perfusion imaging 07/03/2005, CT abdomen and pelvis 01/27/2022 FINDINGS: There is a small, mild, fixed perfusion defect involving left ventricular inferior wall, co nsistent with infarct. No reversible component to suggest ischemia. There is no segmental wall motio n abnormality. Left ventricular ejection fraction measures 61%. IMPRESSION: 1. Small area of mild infarct involving the inferior wall of left ventricle. 2. Normal left ventricular ejection fraction measuring 61%. Reviewed, dictated and finalized at location A. NG MACHINE OPERATOR HORIZONTAL
--- NOTE | 2022-11-25 10:13 | EST_ITS ---
Patient Info Name: Reynold Machado Age: 82 years : 1940 Gender: Male Ht: 71 in Wt: 285 lbs BSA: 2.60 m2 HR: 64 bpm BP: 161 / 91 mmHg Heart Rhythm: Sinus Rhythm Exam Date: 11/25/2022 11:08 AM Exam Location: [facility] Stress Patient Status: Outpatient Admit Date: 11/25/2022 Staff Ordering Physician: Roberto Saleem MD Attending Provider: Roberto Saleem MD Exercise Technologist: Kaitlyn Gonsalez CT Exercise Physician: Alfredo Contreras DO Exam Type: CA stress boyd w NM Study Info Indications R06.00 - Dyspnea, unspecified A regadenoson stress test was performed. Summary 1. 1. Negative lexiscan stress test for ischemic ST changes by ECG criteria. 2. 2. Baseline hypertension. 3. 3. Nuclear scan to follow and will be reported separately. Please correlate with it. 4. 4. Patient informed of the above results. Protocol: Lexiscan Stress ECG Details Stage: REST Duration (min): 1 min : 2 sec HR (bpm): 64 SBP (mmHg): 161 DBP (mmHg): 91 Stage: REST Duration (min): 4 min : 41 sec HR (bpm): 62 SBP (mmHg): 161 DBP (mmHg): 91 Stage: STAGE 1 Duration (min): 1 min : 0 sec HR (bpm): 75 SBP (mmHg): 166 DBP (mmHg): 84 Stage: RECOVERY Duration (min): 1 min : 0 sec HR (bpm): 71 SBP (mmHg): 166 DBP (mmHg): 84 Stage: RECOVERY Duration (min): 2 min : 0 sec HR (bpm): 72 SBP (mmHg): 166 DBP (mmHg): 84 Stage: RECOVERY Duration (min): 3 min : 0 sec HR (bpm): 65 SBP (mmHg): 170 DBP (mmHg): 85 Stage: RECOVERY Duration (min): 3 min : 7 sec HR (bpm): 65 SBP (mmHg): 170 DBP (mmHg): 85 Rest HR: 62 bpm Peak HR: 80 bpm Rest Sys BP: 161 mmHg Peak Sys BP: 170 mmHg Max Pred HR: 140 bpm % Max Pred HR: 57 % Target HR: 119 bpm Max RPP: 13,600 bpm*mmHg Termination Reason: Completed protocol Cardiac Symptoms: Shortness of breath Total Time: 1 min : 0 sec Rest Brambila BP: 91 mmHg Peak Br[place]ila BP: 85 mmHg Total Dose: 0.4 mg Resting ECG Sinus rhythm. Stress ECG No ST changes. Arrhythmias None. Report Signatures
== END 2022-11-25 10:09 | disposition home or self-care (01) ==
PROVIDERS: PCP Internal Medicine; Visit Provider Internal Medicine
DX: R06.02 Shortness of breath (principal); R06.09 Other forms of dyspnea; R07.89 Other chest pain
CPT/HCPCS: 78452; 93017; A9502; J2785

== ENCOUNTER 2022-12-08 07:56 | Outpatient (CLI) | payer MEDICARE, SELFPAY ==
--- NOTE | ~2022-12-08 | PE_ITS ---
EXAMINATION: PET skull to mid thigh DATE: 12/08/2022 09:58 INDICATION: Right solid nodule of the lingula TECHNIQUE: Blood glucose level was 125 mg/dL. 8.931 mCi of 18-fluorodeoxyglucose (18-FDG) was adminis tered i.v. Low dose computed tomography (CT) images were acquired from the base of the brain to the p roximal thighs for attenuation correction and anatomic localization. Positron emission tomography (PE T) images were acquired in the same distribution beginning 56 minutes after injection. The dose-lengt h product (DLP) was 958.98 mGy-cm. COMPARISON: 01/27/2022 FINDINGS: Head/neck: No abnormal FDG uptake is identified. Uptake in the oral cavity and vocal cords without miller spicious CT correlate is likely physiologic. Chest: No abnormal FDG uptake is identified. There is a stable 11 mm part solid nodule of the lingu la without abnormal FDG uptake. There is mild dependent atelectasis. No pleural effusion or pneumotho rax. No pathologically enlarged thoracic lymph nodes are identified. The heart size is normal. Calcif ied coronary artery atherosclerosis is noted. Abdomen/pelvis/proximal thighs: Physiologic FDG activity is present in the bowel and urinary tract. N o abnormal FDG uptake is identified. The liver, spleen, pancreas, gallbladder, and adrenal glands are normal. Cysts of the kidneys measure up to 4.7 cm on the left. No pathologically enlarged abdominal or pelvic lymph nodes are identified. No free intraperitoneal gas or evidence of bowel obstruction. T here are changes of endoluminal abdominal aortic aneurysm repair. Colonic diverticulosis is present w ithout evidence of diverticulitis. Musculoskeletal: No abnormal FDG uptake is identified. There are bridging osteophytes at multiple lev els in the thoracic spine, consistent with diffuse idiopathic skeletal hyperostosis (DISH). There is severe lumbar spondylosis. There are changes of bilateral hip arthroplasty. IMPRESSION: 1. Stable 11 mm part solid nodule of the lingula, likely benign. Although no FDG uptake is identified , sensitivity is lower for subsolid nodules. Follow-up low-dose chest CT in one year is recommended. Reviewed, dictated and finalized at location L. WHINA IMPRESSION: 1. Stable 11 mm part solid nodule of the lingula, likely benign. Although no FD G uptake is identified, sensitivity is lower for subsolid nodules. Follow-up lo w-dose chest CT in one year is recommended.
[2022-12-08 08:28] LABS: Glucose Point of Care 125 mg/dl (65-105)
== END 2022-12-08 07:57 | disposition home or self-care (01) ==
PROVIDERS: PCP Internal Medicine; Visit Provider Internal Medicine
DX: R91.1 Solitary pulmonary nodule (principal)
CPT/HCPCS: 78815; A9552

== ENCOUNTER 2023-11-24 15:06 | Outpatient (CLI) | payer MEDICARE, SELFPAY ==
--- NOTE | ~2023-11-24 | CT_ITS ---
EXAMINATION: CT abdomen w con DATE: 11/24/2023 15:46 INDICATION: Intra-abdominal and pelvic swelling, mass and lump. TECHNIQUE: Computed tomography (CT) of the abdomen was performed with 100 mL Omnipaque 350 intravenou s contrast. Automated exposure control and iterative reconstruction technique were employed. The dose -length product was 852.03 mGy-cm. COMPARISON: CT abdomen and pelvis 01/27/2022 FINDINGS: The visualized portions of the lung bases demonstrate a 13 mm part solid with 3 mm solid co mponent in the lingula that measured 11 mm on 01/27/22, likely benign. No pleural effusion. The heart size is normal. There are coronary artery calcifications. No pericardial effusion. The liver, gallbla dder, spleen, pancreas, and adrenal glands are normal. There are cysts in the kidneys measuring up to 4.8 cm on the right. There is a 3.6 cm fusiform aneurysm of infrarenal aorta with stent graft in exp ected position. There are no dilated loops of bowel. There is diverticulosis of the colon without debra dence of diverticulitis. There are no pathologically enlarged lymph nodes. There is no free intraperi toneal fluid. There is a lipoma in right serratus anterior muscle. There are bridging endplate osteop hytes at multiple levels in the spine, consistent with diffuse idiopathic skeletal hyperostosis (DISH ). There is severe lumbar spondylosis. IMPRESSION: 1. No specific evidence of malignancy. Reviewed, dictated and finalized at location E. ICE CENTER MANAGER
[2023-11-24 15:42] LABS: Estimated Glomerular Filt Rate > 60
== END 2023-11-24 15:07 | disposition home or self-care (01) ==
LOC: ANHIMG 15:10
PROVIDERS: PCP Internal Medicine; Visit Provider Internal Medicine
DX: R19.00 Intra-abdominal and pelvic swelling, mass and lump, unspecified site (principal)
CPT/HCPCS: 74160; Q9967

== ENCOUNTER 2023-12-14 01:32 | Day surgery (SDC) | payer MEDICARE, SELFPAY ==
[2023-11-18 10:06] VITALS: BMI 37.6
--- NOTE | 2023-12-10 11:17 | SUR.PREOP ---
Patient called regarding upcoming procedure. Reviewed preop instructions, appointment times, and procedure prep.
[2023-12-14 09:03] VITALS: BP 144/88; PULSE 68; RESP 22; TEMP 36.4; O2SAT 97; BMI 37.6
--- NOTE | 2023-12-14 09:03 | PM.HPGS ---
History of Present Illness History of Present Illness Consent: Risks, benefits, and alternatives have been discussed and questions answered. Patient agrees to proceed with procedure. Chief complaint: other fecal abnormalities Narrative: Reynold Machado is a 83 year old male Referred for colonoscopy due to a positive Cologuard test. Review of Systems Review of Systems: All systems reviewed & are unremarkable except as noted in HPI and below PMFSH Past Medical History Medical History Abdominal mass Abdominal pain ASHD (arteriosclerotic heart disease) Benign essential hypertension Bladder cancer BMI 38.0-38.9,adult BMI 39.0-39.9,adult Body mass index (BMI) of 40.1 to 44.9 in adult Chronic low back pain Chronic pain of right knee Colon cancer screening DJD (degenerative joint disease), multiple sites DM type 2 (diabetes mellitus, type 2) IVERSON (dyspnea on exertion) Dysphagia Dysuria Elevated homocysteine Encounter for Medicare annual wellness exam Encounter for routine adult health examination with abnormal findings Encounter for routine adult health examination without abnormal findings Gout Grief Hearing loss History of abdominal aortic aneurysm (AAA) had repaired now being watched History of CVA (cerebrovascular accident) Hospital discharge follow-up Hx of transient ischemic attack (TIA) Hypothyroidism (acquired) Insomnia Lung nodule Microscopic hematuria Mixed hyperlipidemia On nursing home drug therapy Onychomycosis LOUANN (obstructive sleep apnea) Personal history of COVID-19 Positive colorectal cancer screening using Cologuard test Post-op pain Pre-operative clearance Prostate cancer screening Rash Ruptured abdominal aortic aneurysm Seizure-like activity Testosterone deficiency Tingling of face Tingling of upper extremity UTI (urinary tract infection) Surgical History Surgical History History of intravascular stent placement History of total hip replacement Hx of hernia repair S/P AAA repair Status post urethral surgery Family History Family History Father Diabetes mellitus Family history of coronary artery disease Family history of diabetes mellitus in first degree relative Mother Family history of cardiovascular disease Family history of malignant neoplasm of brain Family history of heart disease in male family member before age 55 Social History Social History Social History: Smoking packs per day: 1 Smoking cigarettes per day: 20.0 Years smoked: 50 Smoking pack-years: 50.00 Smoking status: Former smoker Tobacco type: cigarettes Second hand tobacco smoke exposure: Yes Smoking end date: 11/01/04 Alcohol intake: current Drinks per week: 14 Alcohol use details: Daily; C[employer]TA[employer] 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 Substance use: never Substance use type: does not use Lack of Transportation: No Lack of Food: Never True Current Housing: I Have Housing Concerned About Future Housing: No Difficulty Paying Gas/Electric Bills: No Difficulty Paying for Meds: No Currently Unemployed: No Education: Master's Degree or Higher Difficulty w/ Childcare or Family Care: No Living arrangements: alone Occupation/Education: retired Gender identity (if verbalized by the patient): Male Spiritual care concerns: No Agree to blood products: Yes Meds Home Medications and Allergies Home Medications Medication Instructions Recorded Confirmed Type testosterone (AndroGel) 2 pump topical DAILY 09/05/19 12/14/23 History aspirin 325 mg tablet 325 mg PO DAILY 11/27/19 12/14/23 History Centrum Silver 1 tab-cap PO DAILY 04/23/20 12/14/23 History omega-3 fatty acids 1,000 mg 3,000 mg PO DAILY 05/16/20 12/14/23 History capsule (Fish Oil Concentrate) docusate sod
[2023-12-14] MEDS: LACTATED RINGERS 1,000 ML 150 ML IV CONT (09:11)
[2023-12-14 09:26] LABS: Glucose Point of Care 142 mg/dl (65-105)
--- NOTE | 2023-12-14 09:31 | WPDANESEPPF ---
Anes - Initial Pre Proc Eval Procedure: Operation Date: 12/14/23 10:00 Proposed Procedures p Colonoscopy - Mynor Jama MD Date/Time: 12/14/23 09:31 Surgeon: Mynor Jama MD Pre Op Diagnosis: other fecal abnormalities Patient Data Age: 83 Gender: M Height: 1.8 m Weight: 122.5 kg Last Vital Signs Temp 97.5 F L 12/14/23 09:03 Pulse 68 12/14/23 09:03 Resp 22 H 12/14/23 09:03 BP 144/88 H 12/14/23 09:03 Pulse Ox 97 12/14/23 09:03 O2 Del Method Room Air 12/14/23 09:03 Allergies Allergy/AdvReac Type Severity Reaction Status Date / Time morphine Allergy Intermediate Itching Verified 12/14/23 09:00 MARIA LUZ Inhibitors Allergy Mild Cough Verified 12/14/23 09:00 lisinopril Allergy Mild Cough Verified 12/14/23 09:00 Home Medications Medication Instructions Recorded Confirmed Type testosterone (AndroGel) 2 pump topical DAILY 09/05/19 12/14/23 History aspirin 325 mg tablet 325 mg PO DAILY 11/27/19 12/14/23 History Centrum Silver 1 tab-cap PO DAILY 04/23/20 12/14/23 History omega-3 fatty acids 1,000 mg 3,000 mg PO DAILY 05/16/20 12/14/23 History capsule (Fish Oil Concentrate) docusate sodium 100 mg capsule 100 mg PO DAILY PRN PRN 02/04/21 12/14/23 History constipation psyllium husk 0.52 gram capsule 1.04 g PO HS 02/20/21 12/14/23 History (Metamucil) blood-glucose meter (Blood Glucose #1 ea 11/04/22 12/03/23 Rx Monitoring kit) lancets 23 gauge #100 ea 11/04/22 12/03/23 Rx celecoxib 200 mg capsule 200 mg PO DAILY #180 caps 05/03/23 12/14/23 Rx ezetimibe 10 mg tablet (Zetia) 5 mg PO EVERY OTHER DAY 05/21/23 12/14/23 History vibegron 75 mg tablet (Gemtesa) [address] Fajardo 09/08/23 12/14/23 History cholecalciferol (vitamin D3) 50 50 mcg PO DAILY 10/13/23 12/14/23 History mcg (2,000 unit) capsule glimepiride 2 mg tablet See Rx Instructions .Route 10/15/23 12/14/23 Rx .COMPLEX #180 tabs levothyroxine 100 mcg tablet See Rx Instructions .Route 10/15/23 12/14/23 Rx .COMPLEX #90 tabs allopurinol 300 mg tablet See Rx Instructions .Route 11/02/23 12/14/23 Rx .COMPLEX #90 tabs amlodipine 10 mg tablet See Rx Instructions .Route 11/02/23 12/14/23 Rx .COMPLEX #135 tabs atorvastatin 80 mg tablet See Rx Instructions .Route 11/02/23 12/14/23 Rx .COMPLEX #90 tabs candesartan 32 mg tablet See Rx Instructions .Route 11/02/23 12/14/23 Rx .COMPLEX #90 tabs carvedilol 25 mg tablet See Rx Instructions .Route 11/02/23 12/14/23 Rx .COMPLEX #180 tabs dapagliflozin propaned 10 See Rx Instructions .Route 11/02/23 12/14/23 Rx mg-metformin ER 1,000 mg .COMPLEX #90 tabs tablet,ext rel 24hr (Xigduo XR) hydrochlorothiazide 25 mg tablet See Rx Instructions .Route 11/02/23 12/14/23 Rx .COMPLEX #90 tabs linagliptin 5 mg tablet (Tradjenta) See Rx Instructions .Route 11/02/23 12/14/23 Rx .COMPLEX #90 tabs metformin 500 mg tablet See Rx Instructions .Route 11/02/23 12/14/23 Rx .COMPLEX #90 tabs blood sugar diagnostic (True #50 strips 11/26/23 12/03/23 Rx Metrix Glucose Test Strip) lorazepam 1 mg tablet 1 mg PO BID #60 tabs 12/08/23 12/14/23 Rx Laboratory Tests 12/14/23 09:23 POC Capillary Glucose 142 H mg/dl (65-105) Patient hx anesthesia problems: none Family hx anesthesia problems: none Results Review: All pre-operative results and documents have been reviewed as part of the pre-operative evaluation. [facility] Past Medical History Medical History Abdominal mass Abdominal pain ASHD (arteriosclerotic heart disease) Benign essential hypertension Bladder cancer BMI 38.0-38.9,adult BMI 39.0-39.9,adult Body mass index (BMI) of 40.1 to 44.9 in adult Chronic low back pain Chronic pain of right knee Colon cancer screening DJD (degenerative joint disease), multiple sites DM type 2 (diabetes mellitus, type 2) IVERSON (dyspnea on exertion) Dysphagia Dysuria Elevated homocysteine Encounter
[2023-12-14 10:03] VITALS: BP 104/61; PULSE 64; RESP 23; O2SAT 96
[2023-12-14 10:13] VITALS: BP 100/66; PULSE 68; RESP 22; O2SAT 100
[2023-12-14 10:25] VITALS: BP 129/62; PULSE 57; RESP 24; O2SAT 100
== END 2023-12-14 10:36 | disposition home or self-care (01) ==
PROVIDERS: PCP Internal Medicine; Visit Provider Internal Medicine Gastroenterology
PROC: 0DJD8ZZ Inspection of Lower Intestinal Tract, Via Natural or Artificial Opening Endoscopic (ICD-10-PCS; CPT 45378; principal; 2023-12-14 10:00)
DX: D12.3 Benign neoplasm of transverse colon (principal); K64.8 Other hemorrhoids; K57.30 Diverticulosis of large intestine without perforation or abscess without bleeding; I25.10 Atherosclerotic heart disease of native coronary artery without angina pectoris; E11.9 Type 2 diabetes mellitus without complications; M10.9 Gout, unspecified; E03.9 Hypothyroidism, unspecified; E78.2 Mixed hyperlipidemia; G47.33 Obstructive sleep apnea (adult) (pediatric); I10 Essential (primary) hypertension; Z86.73 Personal history of transient ischemic attack (TIA), and cerebral infarction without residual deficits; Z85.51 Personal history of malignant neoplasm of bladder; Z87.891 Personal history of nicotine dependence; Z79.84 Long term (current) use of oral hypoglycemic drugs; Z79.82 Long term (current) use of aspirin; E66.9 Obesity, unspecified; Z68.37 Body mass index [BMI] 37.0-37.9, adult
CPT/HCPCS: 45385; 45381; 82948; 88305; J2704; J7120

== ENCOUNTER 2023-12-16 07:25 | Outpatient (CLI) | payer MEDICARE, SELFPAY ==
--- NOTE | ~2023-12-16 | PE_ITS ---
EXAMINATION: PET skull to mid thigh DATE: 12/16/2023 09:28 INDICATION: Solitary pulmonary nodule. TECHNIQUE: Blood glucose level was 150 mg/dL. 11.203 mCi of 18-fluorodeoxyglucose (18-FDG) was admini stered i.v. Low dose computed tomography (CT) images were acquired from the base of the brain to the proximal thighs for attenuation correction and anatomic localization. Automated exposure control was employed. Dose-length product (DLP) was 1344 mGy-cm. Positron emission tomography (PET) images were a cquired in the same distribution. COMPARISON: PET/CT 12/08/2022, CT abdomen and pelvis 07/16/21 FINDINGS: Head/neck: There are no pathologically enlarged lymph nodes. Chest: In the lingula, there is a 13 mm part solid nodule with 3 mm solid component without increased activity. No pleural effusion. The heart size is normal. There are coronary artery calcifications. N o pericardial effusion. Abdomen/pelvis/proximal thighs: The liver, gallbladder, spleen, pancreas, adrenal glands are normal. There are cysts in the kidneys measuring up to 5.2 cm on the left. There are hemorrhagic cysts measur ing up to 14 mm on the left. There is a 3.5 cm fusiform aneurysm of infrarenal aorta with stent graft in expected position. There is diverticulosis of the colon without evidence of diverticulitis. There are no dilated loops of bowel. There are no pathologically enlarged lymph nodes. There is no free in traperitoneal fluid. There are bilateral total hip arthroplasties. IMPRESSION: 1. 13 mm part-solid nodule without increased activity in lingula, stable from 07/16/2021, likely benig n. Reviewed, dictated and finalized at location A. [employer] IMPRESSION: 1. 13 mm part-solid nodule without increased activity in lingula, stable from , likely benign.
[2023-12-16 08:00] LABS: Glucose Point of Care 150 mg/dl (65-105)
== END 2023-12-16 07:26 | disposition home or self-care (01) ==
PROVIDERS: PCP Internal Medicine; Visit Provider Internal Medicine
DX: R91.1 Solitary pulmonary nodule (principal)
CPT/HCPCS: 78815; A9552

== ENCOUNTER 2024-01-06 13:49 | Outpatient (CLI) | payer MEDICARE, SELFPAY ==
--- NOTE | 2024-01-12 13:58 | WPDHOLTEREM ---
Holter/Event Monitor Holter/Event Monitor Date of procedure: 01/06/24 Holter/Event Procedure: 48 Hr Holter Monitor Indications: Abnormal EKG Conclusion: 1. 48 hour holter monitor on 01/06/24. 2. Underlying rhythm is sinus rhythm. HR range 41-98 bpm; average HR 63 bpm. HR at 41 bpm was at 03:47. 3. There are 2,765 premature supraventricular complexes, 912 supraventricular couplets, 28 supraventricular bigeminy, and 181 supraventricular trigeminy. No supraventricular tachycardia. 4. There are 628 premature ventricular complexes and 1 ventricular couplet. No ventricular tachycardia. 5. No sinoatrial or atrioventricular blocks. No significant pauses greater than 2 seconds. 6. No symptoms available for correlation.
== END 2024-01-06 13:50 | disposition home or self-care (01) ==
LOC: ANHCARD 13:50
PROVIDERS: PCP Internal Medicine; Visit Provider Internal Medicine
DX: R94.31 Abnormal electrocardiogram [ECG] [EKG] (principal)
CPT/HCPCS: 93225; 93226

== ENCOUNTER 2024-01-25 16:00 | Outpatient (CLI) | payer MEDICARE, SELFPAY ==
--- NOTE | ~2024-01-25 | XR_ITS ---
EXAMINATION: XR chest 2V DATE: 01/25/2024 16:25 INDICATION: Shortness of breath TECHNIQUE: PA and lateral views of the chest are obtained. COMPARISON: 10/30/2022 FINDINGS: The lungs are free of acute opacities. No pleural effusion or pneumothorax. The cardiomedia stinal silhouette is normal. There are bridging osteophytes at multiple levels in the spine, consiste nt with diffuse idiopathic skeletal hyperostosis (DISH). IMPRESSION: 1. No acute cardiopulmonary abnormality. Reviewed, dictated and finalized at location F.
[2024-01-25 17:00] LABS: Anion Gap 7 mmol/L (4-12); Blood Urea Nitrogen 31 mg/dL (9-20); Calcium 9.3 mg/dL (8.4-10.2); Carbon Dioxide 26 mmol/L (22-30); Chloride 104 mmol/L (98-107); Estimated Glomerular Filt Rate > 60; Glucose 198 mg/dL (65-110); Potassium 3.6 mmol/L (3.4-5.0); Sodium 137 mmol/L (137-145)
[2024-01-25 17:08] LABS: NT Pro B Type Natriuretic Pept 409 pg/mL (19.9-100)
== END 2024-01-25 16:01 | disposition home or self-care (01) ==
PROVIDERS: PCP Internal Medicine; Visit Provider Internal Medicine
DX: R06.09 Other forms of dyspnea (principal); Z79.899 Other long term (current) drug therapy; I25.10 Atherosclerotic heart disease of native coronary artery without angina pectoris; I10 Essential (primary) hypertension; R06.02 Shortness of breath
CPT/HCPCS: 36415; 71046; 80048; 83880

== ENCOUNTER 2024-04-13 09:52 | Outpatient (CLI) | payer MEDICARE, SELFPAY ==
--- NOTE | ~2024-04-13 | XR_ITS ---
EXAMINATION:XR cervical spine 4-5V DATE: 04/13/2024 10:18 INDICATION: Nontraumatic bilateral hand numbness TECHNIQUE: AP, lateral, lateral flexion, lateral extension, lateral swimmers and odontoid views of th e cervical spine are provided. COMPARISON: None FINDINGS: Surgical hypomobility with no change in 1 mm retrolisthesis C5 on C6 and 1 mm anterolisthesis C6 on C 7 with flexion and extension. Odontoid is intact. Normal atlantoaxial interval. Vertebral body heigh ts are normal. Moderate disc height loss at C5-C6 and C6-C7 and mild disc height loss at C2-C3 and C4 -C5. Small posterior endplate osteophyte along the inferior endplate of C5 resulting in mild central canal stenosis at this level. There is multilevel bilateral severe cervical facet and uncovertebral o steoarthritis. Prevertebral soft tissues are normal. IMPRESSION: 1. Cervical spondylosis with mild and moderate disc height loss, severe facet and uncovertebral osteo arthritis. 2. Cervical hypomobility with no change in 1 mm retrolisthesis C5 on C6 and 1 mm anterolisthesis C6 o n C7 with flexion and extension. Reviewed, dictated and finalized at location A. IMPRESSION: 1. Cervical spondylosis with mild and moderate disc height loss, severe facet a nd uncovertebral osteoarthritis. 2. Cervical hypomobility with no change in 1 mm retrolisthesis C5 on C6 and 1 m m anterolisthesis C6 on C7 with flexion and extension.
== END 2024-04-13 09:53 | disposition home or self-care (01) ==
LOC: ANHIMG 09:54
PROVIDERS: PCP Internal Medicine; Visit Provider Internal Medicine
DX: R29.898 Other symptoms and signs involving the musculoskeletal system (principal); M47.892 Other spondylosis, cervical region; M43.12 Spondylolisthesis, cervical region; R29.890 Loss of height
CPT/HCPCS: 72050

== ENCOUNTER 2024-05-10 09:06 | Outpatient (CLI) | payer MEDICARE, SELFPAY ==
--- NOTE | 2024-05-10 11:00 | NEURO_ITS ---
Impression: # Known diabetic complains of increasing numbness of hands. # Bilateral Carpal Tunnel Syndrome, right more than left. # Bilateral ulnar neuropathy across the elbows. 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 # Needle/EMG exam abnormal. Nerve Conduction Studies Anti Sensory Summary Table Stim Site NR Peak (ms) P-T Amp (?V) Site1 Site2 Delta-P (ms) Dist (cm) Ranjith (m/s) Left Median Anti Sensory (2-3nd Digit) Wrist 4.6 23.4 Wrist 2-3nd Digit 4.6 14.0 30 Wrist 4.7 21.6 Wrist 2-3nd Digit 4.6 14.0 30 Right Median Anti Sensory (2-3nd Digit) Wrist 5.2 13.0 Wrist 2-3nd Digit 5.2 14.0 27 Wrist 6.6 8.5 Wrist 2-3nd Digit 5.2 14.0 27 Left Radial Anti Sensory (Base 1st Digit) Wrist 2.3 12.7 Wrist Base 1st Digit 2.3 0.0 Right Radial Anti Sensory (Base 1st Digit) Wrist 2.8 14.3 Wrist Base 1st Digit 2.8 0.0 Left Ulnar Anti Sensory (5th Digit) Wrist 2.9 35.2 Wrist 5th Digit 2.9 14.0 48 Right Ulnar Anti Sensory (5th Digit) Wrist 3.3 19.1 Wrist 5th Digit 3.3 14.0 42 Motor Summary Table Stim Site NR Onset (ms) O-P Amp (mV) Site1 Site2 Delta-0 (ms) Dist (cm) Ranjith (m/s) Left Median Motor (Abd Poll Brev) Wrist 4.7 2.6 Elbow Wrist 6.0 32.0 53 Elbow 10.7 1.9 Right Median Motor (Abd Poll Brev) Wrist 8.0 0.1 Elbow Wrist 5.4 32.0 59 Elbow 13.4 1.3 ELB/ADM Wrist 3.3 0.0 ELB/ADM 11.3 1.6 Left Ulnar Motor (Abd Dig Minimi) Wrist 3.4 5.6 A Elbow Wrist 7.0 32.0 46 A Elbow 10.4 3.3 B Elbow Wrist 4.6 26.0 57 B Elbow 8.0 3.0 Right Ulnar Motor (Abd Dig Minimi) Wrist 3.6 5.9 A Elbow Wrist 6.9 31.0 45 A Elbow 10.5 4.1 B Elbow Wrist 4.1 22.0 54 B Elbow 7.7 4.4 F Wave Studies NR F-Lat (ms) L-R F-Lat (ms) Left Median (Mrkrs) (Abd Poll Brev) 33.63 0.47 Right Median (Mrkrs) (Abd Poll Brev) 34.10 0.47 Left Ulnar (Mrkrs) (Abd Dig Min) 35.86 0.02 Right Ulnar (Mrkrs) (Abd Dig Min) 35.88 0.02 EMG Side Muscle Nerve Root Ins Act Fibs Amp Dur Recrt Comment Right 1stDorInt Ulnar C8-T1 Nml Nml Nml >12ms +2 Right Ext Indicis Radial (Post Int) C7-8 Nml Nml Nml >12ms +1 Right Ext Digitorum Radial (Post Int) C7-8 Nml Nml Nml >12ms +1 Right BrachioRad Radial C5-6 Nml Nml Nml >12ms +1 Right PronatorTeres Median C6-7 Nml Nml Nml >12ms +1 Right Abd Poll Brev Median C8-T1 Nml Nml Nml >12ms +2 Right ABD Dig Min Ulnar C8-T1 Nml Nml Nml >12ms +2 Left 1stDorInt Ulnar C8-T1 Nml Nml Nml >12ms +2 Left Ext Indicis Radial (Post Int) C7-8 Nml Nml Nml >12ms +1 Left Ext Digitorum Radial (Post Int) C7-8 Nml Nml Nml >12ms +1 Left BrachioRad Radial C5-6 Nml Nml Nml >12ms +1 Left PronatorTeres Median C6-7 Nml Nml Nml >12ms +1 Left Abd Poll Brev Median C8-T1 Nml Nml Nml >12ms +2 Left ABD Dig Min Ulnar C8-T1 Nml Nml Nml >12ms +2 Right Biceps Musculocut C5-6 Nml Nml Nml >12ms +1 Right Triceps Radial C6-7-8 Nml Nml Nml >12ms +1 Right Deltoid Axillary C5-6 Nml Nml Nml >12ms +1 Left Biceps Musculocut C5-6 Nml Nml Nml >12ms +1 Left Triceps Radial C6-7-8 Nml Nml Nml >12ms +1 Left Deltoid Axillary C5-6 Nml Nml Nml >12ms +1 MTDD
== END 2024-05-10 09:07 | disposition home or self-care (01) ==
LOC: ANHNEURO 09:07
PROVIDERS: PCP Internal Medicine; Visit Provider Internal Medicine
DX: G56.03 Carpal tunnel syndrome, bilateral upper limbs (principal); G56.23 Lesion of ulnar nerve, bilateral upper limbs
CPT/HCPCS: 95886; 95911

== ENCOUNTER 2024-11-30 13:46 | Outpatient (CLI) | payer MEDICARE, SELFPAY ==
--- OUTSIDE RECORDS SUMMARY | 2024-11-30 14:29 | XMS_ITS | Patient Health Summary ---
Author Organization [facility] Address [address] [place] [address] Care Team Providers Care Technology Applications Teacher Name Role Phone Roberto Saleem MD Primary Care Provider [phone] Note from [facility],non-owned Affiliates and Associated Physician Practices is amultiple site organization consisting of ambulatory clinics and hospital sitesin [place], [place], [place] and [place]. This disclosure is being madepursuant to the Care Everywhere program and may not contain all information available regarding this patient. Last updated 18.[facility] Social History Tobacco Use Types Packs/Day Years Used Date Smoking Tobacco: Never Assessed Sex and Gender Information Value Date Recorded Sex Assigned at Not on file Gender Identity Not on file Sexual Orientation Not on file Last Filed Vital Signs Vital Sign Reading Time Taken Comments Blood Pressure 152/80 11/09/2013 9:56 AM SURGERY CONSULTANT Pulse 61 11/09/2013 9:56 AM SURGERY CONSULTANT Temperature - - Respiratory Rate 18 11/09/2013 9:56 AM SURGERY CONSULTANT Oxygen Saturation - - Inhaled Oxygen Concentration - - Weight 142.9 kg (315 lb) 11/09/2013 9:56 AM SURGERY CONSULTANT Height - - Body Mass Index - - Procedures * CT HEAD WO CONTRAST(Performed 11/09/2013) * CT HEAD WO CONTRAST(Performed 04/27/2013) * CT HEAD WO CONTRAST(Performed 01/26/2013) * CT HEAD WO CONTRAST(Performed 12/29/2012) * CT HEAD WO CONTRAST(Performed 12/15/2012) * CT HEAD WO CONTRAST(Performed 12/08/2012) * GLUCOSE ACCUCHECK(Performed 12/03/2012) * CT HEAD WO CONTRAST(Performed 12/03/2012) * GLUCOSE ACCUCHECK(Performed 12/03/2012) * GLUCOSE ACCUCHECK(Performed 12/02/2012) * GLUCOSE ACCUCHECK(Performed 12/02/2012) * GLUCOSE ACCUCHECK(Performed 12/02/2012) * GLUCOSE ACCUCHECK(Performed 12/02/2012) * GLUCOSE ACCUCHECK(Performed 12/01/2012) * GLUCOSE ACCUCHECK(Performed 12/01/2012) * GLUCOSE ACCUCHECK(Performed 12/01/2012) * CULTURE ANAEROBE(Performed 12/01/2012) * CULTURE AEROBIC(Performed 12/01/2012) * CULTURE VENTRICULAR CATHETER TIP(Performed 12/01/2012) * GLUCOSE ACCUCHECK(Performed 12/01/2012) * CT HEAD WO CONTRAST(Performed 12/01/2012) * BASIC METABOLIC PANEL (CALCIUM TOTAL)(Performed 12/01/2012) * CBC W AUTO DIFFERENTIAL(Performed 12/01/2012) * GLUCOSE ACCUCHECK(Performed 11/30/2012) * GLUCOSE ACCUCHECK(Performed 11/30/2012) * GLUCOSE ACCUCHECK(Performed 11/30/2012) * CT HEAD WO CONTRAST(Performed 11/30/2012) * BASIC METABOLIC PANEL (CALCIUM TOTAL)(Performed 11/30/2012) * CBC W AUTO DIFFERENTIAL(Performed 11/30/2012) * XR SKULL 3VW OR LESS(Performed 11/29/2012) * XR CHEST 1VW PORTABLE(Performed 11/29/2012) * GLUCOSE ACCUCHECK(Performed 11/29/2012) * TYPE + SCREEN PANEL(Performed 11/29/2012) * BASIC METABOLIC PANEL (CALCIUM TOTAL)(Performed 11/29/2012) * URINALYSIS NO MICROSCOPIC NO CULTURE(Performed 11/29/2012) * PT-INR [facility](Performed 11/29/2012) * PTT [facility](Performed 11/29/2012) * GLUCOSE ACCUCHECK(Performed 11/16/2012) * CT HEAD WO CONTRAST(Performed 11/16/2012) * CBC W AUTO DIFFERENTIAL(Performed 11/16/2012) * PHOSPHORUS BLOOD(Performed 11/16/2012) * MAGNESIUM BLOOD(Performed 11/16/2012) * BASIC METABOLIC PANEL (CALCIUM TOTAL)(Performed 11/16/2012) * GLUCOSE ACCUCHECK(Performed 11/16/2012) * GLUCOSE ACCUCHECK(Performed 11/15/2012) * GLUCOSE ACCUCHECK(Performed 11/15/2012) * GLUCOSE ACCUCHECK(Performed 11/15/2012) * GLUCOSE ACCUCHECK(Performed 11/15/2012) * GLUCOSE ACCUCHECK(Performed 11/15/2012) * PHOSPHORUS BLOOD(Performed 11/15/2012) * MAGNESIUM BLOOD(Performed 11/15/2012) * BASIC METABOLIC PANEL (CALCIUM TOTAL)(Performed 11/15/2012) * CBC W AUTO DIFFERENTIAL(Performed 11/15/2012) * GLUCOSE ACCUCHECK(Performed 11/14/2012) * CT HEAD WO CONTRAST(Performed 11/14/2012) * GLUCOSE ACCUCHECK(Performed 11/14/2012) * XR CHEST 1VW PORTABLE(Performed 11/14/2012) * GLUCOSE ACCUCHECK(Performed 11/14/2012) * BASIC METABOLIC PANEL (CALCIUM TOTAL)(Performed 11/14/2012) * PHOSPHORUS BLOOD(Performed 11/14/2012) * MAGNESIUM BLOOD(Performed 11/14/2012) * CBC W AUTO DIFFERENTIAL(Performed 11/14/2012) * BLOOD GASES ARTERIAL(Performed 11/14/2012) * CT HEAD WO CONTRAST(Performed 11/13/2012) * PT-INR [facility](Performed 11/13/2012) * PTT [facility](Performed 11/13/2012) * BASIC METABOLIC PANEL (CALCIUM TOTAL)(Performed 11/13/2012) * CBC W AUTO DIFFERENTIAL(Performed 11/13/2012) * XR WRIST LEFT 3VW OR MORE(Performed 12/25/2010) Performed for Closed Colles' fracture Results * CT HEAD WO CONTRAST (11/09/2013 9:48 AM SURGERY CONSULTANT) Only the most recent of12 resultswithin the time period is included. Anatomical Region Laterality Modality Head Other Impressions 11/09/2013 10:42 AM SURGERY CONSULTANT IMPRESSION: 1. Interval resolution of bilateral cerebral convexity subdural hematomas. This report was approved ??by Rossy Clay M.D. ?? on 11/09/2013 10:41 AM . I, Dr. SHABBIR MARRUFO M.D. have personally reviewed and interpreted this examination/study. This report was electronically signed by SHABBIR MARRUFO M.D. ??on 11/09/2013 10:42 AM . Narrative 11/09/2013 10:42 AM SURGERY CONSULTANT EXAMINATION: Computed tomography (CT) of the head without contrast HISTORY: Subdural hematoma. TECHNIQUE: CT of the head was performed without contrast according to standard protocol. FINDINGS: Comparison is made with CT head dated 04/27/2013. Postoperative appearance of bilateral parietal craniotomies are unchanged. Bilateral cerebral convexity subdural hematomas have resolved. No acute intra- or extra- axial fluid collections are identified. There is mild cerebral volume loss with associated ex vacuo ventricular dilatation. Prominence of the subarachnoid space overlying the left frontal lobe near the vertex is unchanged. The basilar cisterns are patent. No mass effect or midline shift is seen. The jaimes-white matter differentiation is normal. Periventricular white matter hypoattenuation is indicative of chronic small vessel ischemic disease. ??The visualized portions of the orbits and mastoids appear normal. Mild mucosal thickening is seen throughout the paranasal sinuses. No acute fracture is identified. Atherosclerotic calcification is again noted within the vertebral arteries and cavernous carotids. Procedure Note Shabbir Marrufo MD - 01/29/2018 EXAMINATION: Computed tomography (CT) of the head without contrast HISTORY: Subdural hematoma. TECHNIQUE: CT of the head was performed without contrast according tostandard protocol. FINDINGS: Comparison is made with CT head dated 04/27/2013. Postoperative appearance of bilateral parietal craniotomies are unchanged.Bilateral cerebral convexity subdural hematomas have resolved. No acuteintra- or extra- axial fluid collections are identified. There is mildcerebral volume loss with associated ex vacuo ventricular dilatation. Prominence of the subarachnoid spaceoverlying the left frontal lobe near the vertex is unchanged. The basilarcisterns are patent. No mass effect or midline shift is seen. Thegray-white matter differentiation is normal. Periventricular white matter hypoattenuation is indicative of chronicsmall vessel ischemic disease. The visualized portions of the orbits andmastoids appear normal. Mild mucosal thickening is seen throughout theparanasal sinuses. No acute fracture is identified. Atherosclerotic calcification is again noted within thevertebral arteries and cavernous carotids. IMPRESSION IMPRESSION: 1. Interval resolution of bilateral cerebral convexity subduralhematomas. This report was approved by Rossy Clay M.D. on 11/09/2013 10:41AM . I, Dr. SHABBIR MARRUFO M.D. have personally reviewed and interpreted thisexamination/study. This report was electronically signed by SHABBIR MARRUFO M.D. on 11/09/201310:42 AM . Seb Mata MD CT ORDERABLES * (ABNORMAL) GLUCOSE ACCUCHECK (12/03/2012 11:53 AM SURGERY CONSULTANT) Only the most recent of24 resultswithin the time period is included. Glucose, Fingerstick 200(H) 70 - 110 MG/DL [facility] Comment:PERFORMED BY: FLORENCIA ZAVALA 12/03/2012 11:5 3 AM SURGERY CONSULTANT 12/03/2012 12:16 PM SURGERY CONSULTANT Cassandra Purdy MD LAB - CHEMISTRY OR DERABLES Performing Organization Address City/[facility]/ZIP Co de Phone Number [address] [phone] * CULTURE AEROBIC (12/01/2012 10:45 AM SURGERY CONSULTANT) Organism ID [facility] Culture Routine NOT DONE [facility] Brain (Unspecified) 12/01/2012 10:45 AM SURGERY CONSULTANT 12/01/2012 10:51 AM SURGERY CONSULTANT Narrative [facility] - 12/01/2012 4:41 PM SURGERY CONSULTANT Subdural drain tip Specimen Type->Brain Cassandra Purdy MD LAB - MICROBIOLOGY ORDERABLES [address] [phone] * CULTURE ANAEROBE (12/01/2012 10:45 AM SURGERY CONSULTANT) Organism ID [facility] Culture Anaerobic NOT DONE [facility] Brain (Unspecified) 12/01/2012 10:45 AM SURGERY CONSULTANT 12/01/2012 10:51 AM SURGERY CONSULTANT Narrative [facility] - 12/01/2012 4:41 PM SURGERY CONSULTANT Subdural drain Specimen Type->Brain Cassandra Purdy MD LAB - MICROBIOLOGY ORDERABLES Performing Organization Address City/[facility]/ZIP Co de Phone Number [address] [phone] * CULTURE VENTRICULAR CATHETER TIP (12/01/2012 10:33 AM SURGERY CONSULTANT) Pathologist [facility] Culture Ventricular Catheter NO GROWTH AFTER ONE WEEK. [facility] Ventricular Catheter 12/01/2012 10:33 AM SURGERY CONSULTANT 12/01/2012 4:27 PM SURGERY CONSULTANT Cassandra Purdy MD LAB - MICROBIOLOGY ORDERABLES Performing Organization Address [facility] Co de Phone Number [address] [phone] * (ABNORMAL) CBC W AUTO DIFFERENTIAL (12/01/2012 12:00 AM SURGERY CONSULTANT) Only the most recent of6 resultswithin the time period is included. Pathologist [facility] WBC 4.2 3.5 - 10.5 10^3/uL [facility] RBC 2.90(L) 4.30 - 5.70 10^6/uL [facility] Hemoglobin 8.5(L) 13.5 - 17.5 g/dL [facility] Hematocrit 26.6(L) 39.0 - 50.0 % [facility] MCV 91.7 81.0 - 97.0 FL [facility] MCH 29.3 28.0 - 34.0 PG [facility] MCHC 32.0 32.0 - 36.0 G/DL [facility] Platelet 208 150 - 400 10^3/uL [facility] RDW 14.5 11.2 - 14.8 % [facility] RDW-SD 48.1 36 - 50 FL [facility] MPV 8.6(L) 9.3 - 12.8 FL [facility] Neutrophils % 58.7 35.0 - 70.0 % [facility] Lymphocytes % 24.6 19.7 - 55.1 % [facility] Monocytes % 12.9 3 - 15 % [facility] Eosinophils % 3.1 0.0 - 6.0 % [facility] Basophils % 0.7 0.0 - 1.5 % [facility] Neutrophils Absolute 2.5 1.7 - 7.0 10^3/uL [facility] Lymphocyte Absolute 1.0 0.8 - 2.9 10^3/uL [facility] Monocytes Absolute 0.5 0.14 - 0.66 10^3/uL [facility] Eosinophils Absolute 0.13 0.00 - 0.22 10^3/uL [facility] Basophils Absolute 0.03 0.02 - 0.06 10^3/uL [facility] Differential Type AUTO DIFFERENTIAL [facility] Venous blood specimen (specimen) 12/01/2012 12/01/2012 12:31 AM SURGERY CONSULTANT Cassandra Purdy MD LAB - HEMATOLOGY O RDERABLES Performing Organization Address City/State/[facility] Co de Phone Number [address] [phone] * (ABNORMAL) BASIC METABOLIC PANEL (CALCIUM TOTAL) (12/01/2012 12:00 AM SURGERY CONSULTANT) Only the most recent of7 resultswithin the time period is included. BUN 9 7 - 26 mg/dL [facility] Creatinine 0.8 0.6 - 1.2 mg/dL [facility] eGFR by MDRD > 60 ML/MIN [facility] Comment: Chronic kidney disease: ??<60 ml/min Kidney failure: ?<15 ml/min Based on BSA of 1.73m2. Sodium 140 136 - 145 mmol/L [facility] Potassium 3.9 3.5 - 4.5 mmol/L [facility] Chloride 106 98 - 107 mmol/L [facility] CO2 18(L) 22 - 29 mmol/L [facility] Glucose 104 70 - 115 mg/dL [facility] Calcium 8.6 8.4 - 10.2 mg/dL [facility] Anion Gap 20(H) 8 - 18 [facility] BUN/Creatinine Ratio 11 7 - 23 [facility] Osmolality Calculation 273 270 - 300 mOsm/kg [facility] Venous blood specimen (specimen) 12/01/2012 12/01/2012 12:31 AM SURGERY CONSULTANT Cassandra Purdy MD LAB - CHEMISTRY OR DERABLES [facility] [address] [phone] * XR SKULL 3VW OR LESS (11/29/2012 9:21 PM SURGERY CONSULTANT) Anatomical Region Laterality Modality Head Other Impressions 11/30/2012 8:25 AM SURGERY CONSULTANT Impression: 1. Left sided intracranial catheter terminates in the left parieto-occipital region and exits the skull via a left parietal arcadio hole. Adjacent soft tissue swelling. Report dictated by Adan De La Torre M.D. (residential property manager). I, Dr. AVERY TRUJILLO M.D. have personally reviewed and interpreted this examination/study. This report was electronically signed by AVERY TRUJILLO M.D. ??on 11/30/2012 8:25 AM . Narrative 11/30/2012 8:25 AM SURGERY CONSULTANT Exam: ??PX SKULL < 4 VW Date: 11/29/2012 9:00 PM History: ??eval SDD placement Comparison: No prior study is available for comparison. Findings: The left sided intracranial catheter terminates in the left parieto-occipital region. It exits the skull via a left parietal arcadio hole. Adjacent soft tissue swelling is seen. Postsurgical changes consistent with prior right-sided arcadio holes are visible. Pneumocephalus is present. Tubing overlying the neck on both sides are likely external to the patient. Procedure Note Avery Trujillo MD - 01/30/2018 Exam: PX SKULL < 4 VW Date: 11/29/2012 9:00 PM History: eval SDD placement Comparison: No prior study is available for comparison. Findings: The left sided intracranial catheter terminates in the leftparieto-occipital region. It exits the skull via a left parietal burrhole. Adjacent soft tissue swelling is seen. Postsurgical changesconsistent with prior right-sided arcadio holes are visible. Pneumocephalus is present. Tubing overlying the neck on both sides arelikely external to the patient. IMPRESSION Impression: 1. Left sided intracranial catheter terminates in the leftparieto-occipital region and exits the skull via a left parietal burrhole. Adjacent soft tissue swelling. Report dictated by Adan De La Torre M.D. (residential property manager). Dr. AVERY Cassidy M.D. have personally reviewed and interpreted thisexamination/study. This report was electronically signed by AVERY TRUJILLO M.D. on11/30/2012 8:25 AM . Cassandra Purdy MD DIAGNOSTIC IMAGING ORDERABLES * XR CHEST 1VW PORTABLE (11/29/2012 7:22 PM SURGERY CONSULTANT) Only the most recent of2 resultswithin the time period is included. Anatomical Region Laterality Modality Chest Other Impressions 11/30/2012 8:27 AM SURGERY CONSULTANT IMPRESSION: Resolved right upper lobe atelectasis. Report dictated by Dr. AVERY Franklin M.D., M.D. have personally reviewed and interpreted this examination/study. This report was electronically signed by AVERY TRUJILLO M.D. ??on 11/30/2012 8:27 AM . Narrative 11/30/2012 8:27 AM SURGERY CONSULTANT EXAMINATION: Portable chest, one view HISTORY: Preop COMPARISON: 11/14/2012 FINDINGS: The endotracheal tube has been removed. The patient is rotated to the right. The right upper lobe linear opacification has resolved. There is no pleural effusion or pneumothorax. Prominence of the right paratracheal stripe is likely due to patient rotation and portable technique. The heart size is normal. The visualized osseous structures are intact. Procedure Note Avery Trujillo MD - 01/30/2018 EXAMINATION: Portable chest, one view HISTORY: Preop COMPARISON: 11/14/2012 FINDINGS: The endotracheal tube has been removed. The patient is rotated to theright. The right upper lobe linear opacification has resolved. There is nopleural effusion or pneumothorax. Prominence of the right paratrachealstripe is likely due to patient rotation and portable technique. The heart size is normal. The visualizedosseous structures are intact. IMPRESSION IMPRESSION: Resolved right upper lobe atelectasis. Report dictated by Gibson Chaidez I, Dr. AVERY TRUJILLO M.D. have personally reviewed and interpreted thisexamination/study. This report was electronically signed by AVERY TRUJILLO M.D. on11/30/2012 8:27 AM . Cassandra Purdy MD DIAGNOSTIC IMAGING ORDERABLES * PTT [facility] (11/29/2012 2:40 PM SURGERY CONSULTANT) Only the most recent of2 resultswithin the time period is included. APTT 29.9 23.0 - 38.4 SECONDS [facility] Comment: SUGGESTED THERAPEUTIC RANGE FOR FULL DOSE I.V. HEPARIN THERAPY FOR VENOUS THROMBOEMBOLISM IS 66.0 - 91.0 SECONDS, WITH AN APTT RATIO OF 2.1 - 3.0. APTT Ratio 0.98 [facility] Plasma specimen (specimen) BLOOD SPECIMEN / Unknown 11/29/2012 2:40 PM SURGERY CONSULTANT 11/29/2012 2:53 PM SURGERY CONSULTANT Narrative [facility] - 11/29/2012 3:18 PM SURGERY CONSULTANT Is patient on Heparin, Argatroban or Dabigatran?->N unknown if on lovenox Cassandra Purdy MD LAB - COAGULATION ORDERABLES [address] [phone] * PT-INR [facility] (11/29/2012 2:40 PM SURGERY CONSULTANT) Only the most recent of2 resultswithin the time period is included. PT 14.5 12.1 - 14.8 SECONDS [facility] INR 1.1 [facility] Comment: SUGGESTED THERAPEUTIC RANGE FOR LOW-INTENSITY COUMADIN THERAPY FOR VENOUS THROMBOEMBOLISM IS INR 2.0-3.0. ??FOR HIGH RISK PATIENTS (MITRAL VALVE PROSTHESIS, ATRIAL FIBRILLATION, HISTORY OF TIA/STROKE), SUGGESTED THERAPEUTIC RANGE IS INR 2.5-3.5. Plasma specimen (specimen) BLOOD SPECIMEN / Unknown 11/29/2012 2:40 PM SURGERY CONSULTANT 11/29/2012 2:53 PM SURGERY CONSULTANT Narrative [facility] - 11/29/2012 3:18 PM SURGERY CONSULTANT Is patient on Heparin, Argatroban or Dabigatran?->N unknown if on lovenox Cassandra Purdy MD LAB - COAGULATION ORDERABLES Performing Organization Address [facility]/ZIP Co de Phone Number [address] [phone] * URINALYSIS DIPSTICK AUTO (11/29/2012 2:40 PM SURGERY CONSULTANT) Color UA YELLOW STRW,YELLOW [facility] Clarity UA CLEAR CLEAR [facility] Specific [place] Urine 1.009 1.001 - 1.030 [facility] pH UA 7.5 5.0 - 8.0 [facility] Protein UA NEGATIVE <20 mg/dL [facility] Glucose UA NEGATIVE NEGATIVE mg/dL [facility] Ketones NEGATIVE NEGATIVE mg/dL [facility] Bilirubin UA NEGATIVE NEGATIVE mg/dL [facility] Blood UA NEGATIVE NEGATIVE [facility] Nitrite UA NEGATIVE NEGATIVE [facility] Leukocyte Esterase NEGATIVE NEGATIVE [facility] Urobilinogen UA < 2.0 <2.0 mg/dL [facility] Urine specimen (specimen) URINE SPECIMEN COLLECTION, CATHETERIZED / Unknown 11/29/2012 2:40 PM SURGERY CONSULTANT 11/29/2012 2:50 PM SURGERY CONSULTANT Cassandra Purdy MD LAB - URINALYSIS O RDERABLES [address] [phone] * TYPE + SCREEN PANEL (11/29/2012 2:40 PM SURGERY CONSULTANT) Interpretation ABO/Rh Patient A POS [facility] Antibody Screen NEGATIVE [facility] 11/29/2012 2:40 PM SURGERY CONSULTANT 11/29/2012 4:31 PM SURGERY CONSULTANT Cassandra Purdy MD LAB - BLOOD BANK O RDERABLES Performing Organization Address [facility]/ZIP Co de Phone Number [address] [phone] * PHOSPHORUS BLOOD (11/16/2012 5:00 AM SURGERY CONSULTANT) Only the most recent of3 resultswithin the time period is included. Phosphorus 3.1 2.3 - 4.7 mg/dL [facility] Serum 11/16/2012 5:00 AM SURGERY CONSULTANT 11/16/2012 5:18 AM SURGERY CONSULTANT Cassandra Purdy MD LAB - CHEMISTRY OR DERABLES Performing Organization Address [facility] Co de Phone Number [address] [phone] * MAGNESIUM BLOOD (11/16/2012 5:00 AM SURGERY CONSULTANT) Only the most recent of3 resultswithin the time period is included. Magnesium 1.8 1.6 - 2.6 mg/dL [facility] Serum 11/16/2012 5:00 AM SURGERY CONSULTANT 11/16/2012 5:18 AM SURGERY CONSULTANT Cassandra Purdy MD LAB - CHEMISTRY OR DERABLES Performing Organization Address [facility] Co de Phone Number [address] [phone] * (ABNORMAL) BLOOD GASES ART (11/14/2012 12:10 AM SURGERY CONSULTANT) pH Arterial 7.44 7.35 - 7.45 [facility] pCO2 Arterial 37 35 - 45 mmHg [facility] pO2 Arterial 132(H) 71 - 95 mmHg [facility] HCO3 Arterial 24.7 22 - 26 mEq/L [facility] TCO2 Arterial 25.8 25 - 29 mEq/L [facility] Base Excess Arterial 1.1 -2 - 2 [facility] Hemoglobin Arterial 8.2(L) 13.5 - 17.5 g/dL [facility] Oxyhemoglobin Arterial 95.3 95.0 - 100.0 % [facility] Carboxyhemoglobin 2.0 0 - 3 % [facility] Methemoglobin 1.7 0 - 2.0 % [facility] FI O2 Arterial 21 [facility] Arterial blood specimen (specimen) BLOOD SPECIMEN / Unknown 11/14/2012 12:10 AM SURGERY CONSULTANT 11/14/2012 12:28 AM SURGERY CONSULTANT Cassandra Purdy MD LAB - BLOOD GASES ORDERABLES Performing Organization Address City/State/[facility] Co de Phone Number [facility] [address] [place] [address] * XR WRIST 3+VW LEFT ROUTINE (12/25/2010 11:44 AM SURGERY CONSULTANT) Anatomical Region Laterality Modality Wrist / Hand Radiographic Germaine ging 12/25/2010 11:5 2 AM SURGERY CONSULTANT Impressions 12/25/2010 11:52 AM SURGERY CONSULTANT Mild osteoarthritis. Questionable distal radial fracture seen on the oblique image only. Narrative 12/25/2010 11:52 AM SURGERY CONSULTANT Left wrist: HISTORY: Pain. Three views of the left wrist are obtained. The examination reveals mild osteoarthritic changes. There are small spur at the distal radius and ulnar with small subchondral cyst formation at the radial styloid process. On the oblique image, there is a questionable chip fracture at the distal radius. Clinical correlation is recommended. Procedure Note Mariela Malone MD - 12/25/2010 Left wrist: HISTORY: Pain. Three views of the left wrist are obtained. The examination reveals mild osteoarthritic changes. There are small spur at the distal radius and ulnar with small subchondral cyst formation at the radial styloid process. On the oblique image, there is a questionable chip fracture at the distal radius. Clinical correlation is recommended. IMPRESSION Mild osteoarthritis. Questionable distal radial fracture seen on the oblique image only. Geronimo Canonn MD DIAGNOSTIC IMAGING O RDERABLES Care Teams Technology Applications Teacher Relationship Specialty Start Date End Date Roberto Saleem MD [address] [place] [phone] PCP - General 12/25/10
--- OUTSIDE RECORDS SUMMARY | 2024-11-30 14:29 | XMS_ITS | Clinical Summary ---
Author Organization [facility] Address [address] [place] [address] Care Team Providers Care Truckman Name Role Phone Roberto Saleem MD Primary Care Provider [phone] Source Comments [facility],non-[facility] Affiliates and Associated Physician Practices is amultiple site organization consisting of ambulatory clinics and hospital sitesin [place], [place], [place] and [place]. This disclosure is being madepursuant to the Care Everywhere program and may not contain all information available regarding this patient. Last updated 18.[facility] Social History Tobacco Use Types Packs/Day Years Used Date Smoking Tobacco: Never Assessed Sex and Gender Information Value Date Recorded Sex Assigned at Not on file Gender Identity Not on file Sexual Orientation Not on file Last Filed Vital Signs Vital Sign Reading Time Taken Comments Blood Pressure 152/80 11/09/2013 9:56 AM ENGLISH LANGUAGE LEARNER TEACHER Pulse 61 11/09/2013 9:56 AM ENGLISH LANGUAGE LEARNER TEACHER Temperature - - Respiratory Rate 18 11/09/2013 9:56 AM ENGLISH LANGUAGE LEARNER TEACHER Oxygen Saturation - - Inhaled Oxygen Concentration - - Weight 142.9 kg (315 lb) 11/09/2013 9:56 AM ENGLISH LANGUAGE LEARNER TEACHER Height - - Body Mass Index - - Plan of Treatment Health Maintenance Due Date Last Done Comments DTAP/TDAP/TD VACCINES (1 - Tdap) 1961 PNEUMOCOCCAL VACCINE 50+ (1 of 1 - PCV) 1992 ZOSTER VACCINE (1 of 2) 1992 Respiratory Syncytial Virus (RSV) Vaccine Pt: or over 60 yrs (1 - 1-dose 75+ series) 2017 COVID-19 VACCINE ( season) 2024 07/30/2021, 01/09/2021, 12/19/2020 INFLUENZA VACCINE (#1) 2024 , 06/27/2020, 08/17/2019, Additional history exists DEPRESSION SCREENING 11/01/2024 MEDICARE AWV ? CALENDAR YEAR 2024 HEPATITIS B VACCINE Aged Out No longe r eligible based on patient's age to complete this topic HIB VACCINE Aged Out No longer eligi ble based on patient's age to complete this topic HPV VACCINE Aged Out No longer eligi ble based on patient's age to complete this topic MENINGOCOCCAL (Group B) VACCINE Aged Out No longer eligible based on patient's age to complete this topic MENINGOCOCCAL VACCINE Aged Out No yadi charles eligible based on patient's age to complete this topic Insurance Payer Benefit Plan / Group Subscriber ID Effective Dates Phone Address Type AETNA MEDICARE ADV AETNA MEDICARE ADV HMO/PPO/PFFS [id number] Effective for all dates [address] [place] [address] Medicare -Managed Care SELF PAY NO INSURANCE SELF PAY NO INSURANCE Effective for all dates [place], [place] Self Pay AETNA MEDICARE ADV AETNA MEDICARE ADV HMO/PPO/PFFS [id number] Effective for all dates [address] [place] [address] Medicare -Managed Care SELF PAY NO INSURANCE SELF PAY NO INSURANCE Effective for all dates [place] Self Pay AETNA MEDICARE ADV AETNA MEDICARE ADV HMO/PPO/PFFS [id number] Effective for all dates [address] [place] [address] Medicare -Managed Care SELF PAY NO INSURANCE SELF PAY NO INSURANCE Effective for all dates [place] Self Pay AETNA MEDICARE ADV AETNA MEDICARE ADV HMO/PPO/PFFS [id number] Effective for all dates [address] [place] [address] Medicare -Managed Care SELF PAY NO INSURANCE SELF PAY NO INSURANCE Effective for all dates [facility] [place] Self [place] AETNA MEDICARE ADV AETNA MEDICARE ADV HMO/PPO/PFFS [id number] Effective for all dates [address] [place] [address] Medicare -Managed Care SELF PAY NO INSURANCE SELF PAY NO INSURANCE Effective for all dates . [place] Self Pay AETNA MEDICARE ADV AETNA MEDICARE ADV HMO/PPO/PFFS [id number] Effective for all dates [address] [place] [address] Medicare -Managed Care SELF PAY NO INSURANCE SELF PAY NO INSURANCE Effective for all dates [place] Self Pay U[employer] MANAGED MEDICARE ADV UHC COMPLETE CHOICE MEDICARE ADV PPO [id number] 11/01/2020-Prese [address] [address] [place] [address] Medicare -Managed Care Care Teams Truckman Relationship Specialty Start Date End Date Roberto Saleem MD [address] [place] [address] PCP - General 12/25/10
--- OUTSIDE RECORDS SUMMARY | 2024-11-30 14:29 | XMS_ITS | Continuity of Care Document ---
Author Organization [facility] Address [address] [place] [address] Phone Care Team Providers Care Conference Services Manager Name Role Phone Liya ZUÑIGASARA SARKAR Joe Unavailable Unavailab le Allergies, Adverse Reactions, Alerts Substance Reaction Status Criticality morphine Other Active No Information oxycodone changes to mental status Active No Information morphine Rash Active No Information Medications Medication Instructions Dosage Effective Dates (start - stop) Status Comments hydrocodone 5 mg-acetaminophen 325 mg tablet take 1-2 tablet by oral route every 4 hours as needed for postop pain control - Active testosterone 20.25 mg/1.25 gram per pump act.(1.62 %) transdermal gel - Active Gemtesa 75 mg tablet TAKE 1 TABLET BY MOUTH DAILY - Active allopurinol 300 mg tablet TAKE 1 TABLET BY MOUTH DAILY - Active celecoxib 200 mg capsule - Active lorazepam 1 mg tablet TAKE 1 TABLET BY MOUTH TWICE DAILY - Active True Metrix Glucose Test Strip USE TO TEST ONCE DAILY DIRECTED - Active amlodipine 10 mg tablet - Ac tive carvedilol 25 mg tablet - Ac tive Tradjenta 5 mg tablet - Acti ve Xigduo XR 10 mg-1,000 mg tablet,extended release TAKE 1 TABLET BY MOUTH DAILY - Active atorvastatin 80 mg tablet TAKE 1 TABLET BY MOUTH DAILY - Active candesartan 32 mg tablet TAKE 1 TABLET BY MOUTH DAILY - Active glimepiride 2 mg tablet - Ac tive levothyroxine 100 mcg tablet TAKE 1 TABLET BY MOUTH DAILY - Active ezetimibe 10 mg tablet TAKE 1 TABLET BY MOUTH DAILY - Active aspirin 81 mg tablet,delayed release take 1 tablet by oral route every day 81 MG - Active Fish Oil 1,000 mg (120 mg-180 mg) capsule - Active Procedures Procedure Date X-ray exam knee, 3 views Global/Postop followup visit Total Knee Replacement Patients with documented shared decision -making Patients who are evaluated for venous th romboembol X-ray exam knee, 3 views Global/Postop followup visit X-ray exam knee, 3 views BMI Documented Above Normal Limit F/U Pl an Doc Global/Postop followup visit X-ray exam knee, 3 views X-ray exam knee, 4+ views Office/outpatient visit,[facility] 2022 Advance Directives Directive Yes / No Effective Date File Name No Information Encounters Encounter Description Practice Location Reason(s) For Visit Diagnoses Date Provider Providers Copied on Encounter [facility], [facility] [address], [id number], tel:[phone] [facility] Follow Up of left total knee arthroplasty (chief complaint) Presence of left artificial knee jointPain in left knee 4 Liya Diaz. [address] [facility], [address], [id number] , [place]. tel: [phone] Referring Provider: Spencer Flores, [address], [place], [address]. tel:[phone] [facility], [address], [id number], [place] tel:[phone] [facility] No Information 4 Kirstin Dela Cruz er. [address] [facility], [address], [place], [place], [id number] , [place]. tel: [phone] [facility], [address], [place], [place], [id number], [place] [phone] [facility] No Information 4 Kirstin Dela Cruz er. [address] [facility], [address], [place], [place], [id number] , [place]. tel: [phone] Referring Provider: Spencer Flores, [address] [facility] [address] [facility], [place], [address]. tel:[phone] [facility], [address] [address], [place], [place], [id number], [place] tel:[phone] [facility] Right Knee (chief complaint) Presence of right artificial knee joint 4 Nickerson Joe. [address] [facility], [address], [place], [place], [id number] , [place]. tel: [phone] Referring Provider: Spencer Flores, [address] [facility] [address], [place], [address]. tel:[phone] [facility], [address] [address], [place], [place], [id number], [place] tel:[phone] [facility] No Information 4 Nickerson Joe. [address] [facility], [address], [place], [place], [address] , [place]. tel: [phone] [facility], [address] [facility] [address], [place], [place], [id number], [place] [phone] [facility] Right Knee (chief complaint) Presence of right artificial knee jointPain in right knee 4 Nickerson Joe. [address] [facility], [address], [place], [place], [address] , . tel:[phone] Referring Provider: Joe Dejesus, [address] [facility] [address], [place], [address]. tel:[phone] [facility], [address] [address], [place], [place], [id number], tel:[phone] [facility] Unilateral primary osteoarthrit is, right knee 4 Kirstin Dela Cruz er. [address] [facility], [address], [place], [place], [address] , [place]. tel:[phone] Office/outpa tient visit,[facility], [address] [address], [place], [place], [id number], tel:[phone] [facility] Bilat knees (chief complaint) Pain in right kneePain in left kneeUnilater al primary osteoarthrit is, right knee 3 Kirstin Dela Cruz er. [address] [facility], [address], [place], [place], [address] , [place]. tel:[phone] Referring Provider: Spencer Flores, [address] [facility] [address] [facility], [place], [address]. tel:[phone] Family History Family Member Type Diagnosis Age At Onset Father Problem (finding) Heart Disease Father Problem (finding) Osteoarthritis Mother Problem (finding) Diabetes Father Problem (finding) Diabetes Mother Problem (finding) Heart Disease Immunizations Vaccine Date Status Comments Pneumo (2 yrs or older) (PPV23) administered Note: per patient ; Source: Source Unspecified influenza, injectable, quadrivalent, (3 years or older) administered Note: per patient ; Source: Source Unspecified Payers Payer name Insurance type Covered green party ID Authoriza ticonstantin(s) Aetna Medicare CI [id number] Social History Type Description Quantity Date Captured Comments Alcohol Use Details Unknown Caffeine Use Details Unknown Tobacco Use Status No Information Smoking Status No Information Non-Smoking Tobacco Use Details : No Details Available : No Details Available Sex Male Chief Complaint And Reason For Visit From encounter dated '10/30/2024 10:30'. Follow Up of left total knee arthroplasty (chief complaint). Description: Reynold presents to the office today for initial post operative evaluation of his left total knee arthroplasty, date of surgery 10/06/2024. Denies injury, trauma or fall since surgical intervention. Denies fever, chills, generalized feelings of illness or malaise. Indicates compliance with the use of aspirin 81mg twice per day for DVT prophylaxis. He is participating in physical therapy, and feels that it is going all right. He endorses mild to moderate knee pain with flexion that is managed with acetaminophen and ice. His main concern is sciatica with hamstring calf and ankle pain. He has had previous treatments for sciatica and wonders if he should return to the treating physician. He is ambulating without assistive device. Reason For Referral Reason For Referral No Information Plan Of Treatment Date Type Action Status Referral Ordered: X-ray exam knee, 3 views LT ordered Referral Ordered: X-ray exam knee, 3 views RT knee ordered Referral Ordered: X-ray exam knee, 4+ views RT knee ordered Appointment Reynold [facility]ado BOOKED History Of Present Illness Encounter Date Complaint History Of Prese nt Illness Follow Up of left to alexia knee arthroplasty Reynold presents to the office today for initial post operative evaluation of his left total knee arthroplasty, date of surgery 10/06/2024. Denies injury, trauma or fall since surgical intervention. Denies fever, chills, generalized feelings of illness or malaise. Indicates compliance with the use of aspirin 81mg twice per day for DVT prophylaxis. He is participating in physical therapy, and feels that it is going all right. He endorses mild to moderate knee pain with flexion that is managed with acetaminophen and ice. His main concern is sciatica with hamstring calf and ankle pain. He has had previous treatments for sciatica and wonders if he should return to the treating physician. He is ambulating without assistive device. Right Knee Reynold presents to the office today for evaluation of his right total knee arthroplasty, date of surgery 01/20/2024. Denies injury, trauma or fall since last office visit. Denies fever, chills, generalized feelings of illness or malaise. He has completed physical therapy and feels that it went very well. He is participating in an exercise program is on a regular basis. Denies knee pain, knowledge of any activities that cause his pain, and denies use of interventions for pain control. He has resumed all presurgical activities with no difficulty or restriction. He is ambulating without assistive device. Right Knee Reynold presents to the office today for initial post operative evaluation of his right total knee arthroplasty, date of surgery 01/20/2024. Denies injury, trauma or fall since surgical intervention. Denies fever, chills, generalized feelings of illness or malaise. Indicates compliance with the use of aspirin 81mg twice per day for DVT prophylaxis. He is participating in physical therapy, and feels that it is going well. Endorses pain predominantly located in the patellar region, that is rated at a 3 out of 10 with a dull intermittent nature that is worsened at night and with overexertion. He is utilizing acetaminophen meloxicam and ice for pain control. Indicates that he will use oxycodone if needed but has not needed this medication for a few days. He is ambulating without assistive device at today's office visit. Martin ana Flaherty is an 83 year-old male who presents to the office for evaluation of bilateral knee pain. 5 foot 11, 275 pounds. Denies trauma. Pain is 7 out of 10 occasional and sharp located on the medial side predominantly of the right knee. He also has left knee pain. Pain is associated with limping weakness crunching decreased range of motion in varus deformity. Pain is worse with climbing stairs descending stairs and standing. Pain is better with injections [id number] medication hyaluronic acid and cortisone. He has had at least 10 injections. He does limp. He occasionally uses a cane. Medical history positive for diabetes, gout, hypertension, thyroid disease he has had cardiac catheterization and angioplasty he has had previous knee surgery. Bilaterally. The patient has completed adequate conservative therapy consisting of: Tylenol, anti-inflammatories, physical therapy, activity modification, and injections. Currently conservative treatment is no longer providing adequate symptom management and the patient wishes to progress to total joint arthroplasty. Symptoms have been present for greater than 6 months, pain is rated as an 8 out of 10 and is functionally limiting. The patient is no longer able to perform activities of daily living such as climbing hills and ramps, a sending and descending stairs, walking greater than 1-2 city blocks without significant pain. Functional Status Date Functional Assessmen t No Information Instructions Date Instruction Additional Tater renan 1) Continue DVT prop hylaxis until 6 weeks post op. 2) Continue in physical therapy, and maintain an adequate level of physical activity.3) Avoid activities that could cause injury or trauma to the knee.4) Use compression stockings for edema control in the lower limb as needed.5) Do not submerge the surgical incision in standing water.6) Continue pain control measures with the use of rest, ice, elevation, over the counter analgesics, prescription analgesics and NSAIDs.7) Avoid dental care until 3-6 months post op unless emergent, utilize an antibiotic prior to any dental visits for the next 2 years, and notify the office if needed.8) He will return to the physician who treats his back pain.All questions were answered and concerns addressed. Reynold demonstrates appropriate understanding of the diagnosis and the plan of care at this time and will follow up with our office in 8 weeks.Dictation completed with Aventura software, grammatical variances and spelling errors may inadvertently occur. Related to Presence of left artificial knee joint Recommend initiation of a strengthening regimen and continued exercise program. Continue pain control measures as needed with the use of rest, ice, heat, compression, elevation, over the counter oral and topical analgesics and NSAIDs as needed for pain and inflammation control. Remain compliant with the use of antibiotics prior to all dental visits for the next 2 years, and notify the office of need. All questions were answered and concerns addressed. Reynold demonstrates appropriate understanding of the diagnosis and the plan of care at this time and will follow up with the office in one year for radiologic and physical evaluation.Dictation completed with Aventura software, grammatical variances and spelling errors may inadvertently occur. Related to Presence of right artificial knee joint 1) Continue DVT prop hylaxis until 6 weeks post op. 2) Continue in physical therapy, and maintain an adequate level of physical activity.3) Avoid activities that could cause injury or trauma to the knee.4) Use compression stockings for edema control in the lower limb as needed.5) Do not submerge the surgical incision in standing water.6) Continue pain control measures with the use of rest, ice, elevation, over the counter analgesics, prescription analgesics and NSAIDs.7) Avoid dental care until 3-6 months post op unless emergent, utilize an antibiotic prior to any dental visits for the next 2 years, and notify the office if needed.All questions were answered and concerns addressed. Reynold demonstrates appropriate understanding of the diagnosis and the plan of care at this time and will follow up with our office in 8 weeks. Dictation completed with Aventura software, grammatical variances and spelling errors may inadvertently occur. Related to Presence of right artificial knee joint After discussing the risks benefits and alternatives to treatment. Risks include DVT, PE, infection, persistent pain, swelling and stiffness, damage to nerves and arteries, Additional, medical complications related to surgery including constipation, pneumonia, urinary retention, and other issues. The patient understands all this and wishes to proceed with knee arthroplasty. We discussed the hospital course, the postoperative rehabilitation protocol including aggressive outpatient physical therapy. We discussed that if physical therapy is not optimized the patient could develop stiffness of the knee leading to suboptimal outcomes. We also discussed DVT prophylaxis this includes aspirin and PAS active care compression devices unless the patient specifically has an increased risk of DVT. Appropriate preoperative radiographs were obtained for templating purposes. All questions were answered wrist and benefits explained the patient wishes to proceed with total knee arthroplasty. History [facility] Related to Unilateral primary osteoarthritis, right knee Assessments Type Assessment Date assessment Presence of left artificial knee joint assessment Pain in left knee impression Left total knee arth roplasty, date of surgery 10/06/2024No suspicion of mechanical loosening or septic joint Patient Care Teams Name Effective Dates (start - stop) Status Members No Information
--- OUTSIDE RECORDS SUMMARY | 2024-11-30 14:29 | XMS_ITS | Referral Summary ---
Author Organization [facility] Address [address] [place] [address] Care Team Providers Care Customer Business Manager Name Role Phone Roberto Saleem MD Primary Care Provider [phone] Source Comments [facility] Affiliates and Associated Physician Practices is amultiple site organization consisting of ambulatory clinics and hospital sitesin [place], [place], [place] and [place]. This disclosure is being madepursuant to the Care Everywhere program and may not contain all information available regarding this patient. 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 JOINER CHAINSTITCH Pulse 61 11/09/2013 9:56 AM SEAT JOINER CHAINSTITCH Temperature - - Respiratory Rate 18 11/09/2013 9:56 AM SEAT JOINER CHAINSTITCH Oxygen Saturation - - Inhaled Oxygen Concentration - - Weight 142.9 kg (315 lb) 11/09/2013 9:56 AM SEAT JOINER CHAINSTITCH Height - - Body Mass Index - - Plan of Treatment Not on file Insurance Payer Benefit Plan / Group Subscriber ID Effective Dates Phone Address Type AETNA MEDICARE ADV AETNA MEDICARE ADV HMO/PPO/PFFS [id number] Effective for all dates [address] [place] [address] Medicare -Managed Care SELF PAY NO INSURANCE SELF PAY NO INSURANCE Effective for all dates [place], [place] Self Pay AETNA MEDICARE ADV AETNA MEDICARE ADV HMO/PPO/PFFS [id number] Effective for all dates [address] [place] [address] Medicare -Managed Care SELF PAY NO INSURANCE SELF PAY NO INSURANCE Effective for all dates [place] Self [place] AETNA MEDICARE ADV AETNA MEDICARE ADV HMO/PPO/PFFS [id number] Effective for all dates [address] [place] [address] Medicare -Managed Care SELF PAY NO INSURANCE SELF PAY NO INSURANCE Effective for all dates [place] Self [place] AETNA MEDICARE ADV AETNA MEDICARE ADV HMO/PPO/PFFS [id number] Effective for all dates [address] [place] [address] Medicare -Managed Care SELF PAY NO INSURANCE SELF PAY NO INSURANCE Effective for all dates [place] Self [place] AETNA MEDICARE ADV AETNA MEDICARE ADV HMO/PPO/PFFS [id number] Effective for all dates [address] [place] [address] Medicare -Managed Care SELF PAY NO INSURANCE SELF PAY NO INSURANCE Effective for all dates [place] Self [place] AETNA MEDICARE ADV AETNA MEDICARE ADV HMO/PPO/PFFS [id number] Effective for all dates [address] [place] [address] Medicare -Managed Care SELF PAY NO INSURANCE SELF PAY NO INSURANCE Effective for all dates [place] Self [place] [facility] MANAGED MEDICARE ADV [facility] COMPLETE CHOICE MEDICARE ADV PPO [id number] 11/01/2020-Miguel [address] [address] [place] [address] Medicare -Managed Care Care Teams Customer Business Manager Relationship Specialty Start Date End Date Roberto Saleem MD [address] [place] [id number] PCP - General 12/25/10
--- OUTSIDE RECORDS SUMMARY | 2024-11-30 14:29 | XMS_ITS | Continuity of Care Document ---
Author Organization [id number] - [facility] [employer] [employer] Address [address] [place] [address] Phone Care Team Providers Care Tool Designer Apprentice Name Role Phone Leilani SPARKS, Jamilah Unavailable Unavailable Procedures Procedure Date Tte w/doppler complete Advance Directives Directive Yes / No Effective Date File Name No Information Encounters Encounter Description Practice Location Reason(s) For Visit Diagnoses Date Provider Providers Copied on Encounter [id number] - [facility] [employer] [employer], [address], [place], [address], [place] tel:[phone] [facility] IP No Information Leilani Askew. [address] [place] [address], [address], [place], [place], [id number], [place]. tel:[phone] Referring Provider: Lloyd Mccloud [address] [place] [address], [address]. tel:[phone] Family History Family Member Type Diagnosis Age At Onset No Information Payers Payer name Insurance type Covered alliance party ID Authoriza tion(s) Medicare Part B Participatin g Providers [id number] [facility] [id number] Social History Type Description Quantity Date Captured Comments Sex Male Smoking Status No Information Chief Complaint And Reason For Visit No Information Reason For Referral Reason For Referral No Information History Of Present Illness Encounter Date Complaint History Of Prese nt Illness No Information Functional Status Date Functional Assessmen t No Information Instructions Date Instruction Additional Infor mation No Information Assessments Type Assessment Date No Information Patient Care Teams Name Effective Dates (start - stop) Status Members No Information
== END 2024-11-30 13:47 | disposition home or self-care (01) ==
LOC: ANHAUDIO 13:46
PROVIDERS: PCP Internal Medicine; Visit Provider Internal Medicine
DX: H91.90 Unspecified hearing loss, unspecified ear (principal)
CPT/HCPCS: 99199

== ENCOUNTER 2024-11-30 14:57 | Emergency (ER) | payer MEDICARE, SELFPAY ==
[2024-11-30 15:19] VITALS: BP 149/74; PULSE 69; RESP 16; TEMP 36.4; O2SAT 97
--- NOTE | 2024-11-30 16:01 | ED.EAR ---
HPI - Ear Problem General Chief complaint: Ear Stated complaint: Ear Clogged Time Seen by Provider: 11/30/24 16:02 Source: patient, RN notes reviewed and old records reviewed Mode of arrival: ambulatory Limitations: no limitations History of Present Illness HPI Narrative: 84-year-old male presents to the [facility] with a clogged, patient went to see audiology today and was told that a piece of his hearing aid was in his ear. Patient does not remember how long it has been there. Right ear affected Related Data Home Medications ?Medication ?Instructions ?Recorded ?Confirmed ?Last Taken ?Type testosterone (AndroGel) 2 pump topical DAILY 09/05/19 11/30/24 12/13/23 History aspirin 325 mg tablet 325 mg PO DAILY 11/27/19 11/30/24 12/13/23 History Centrum Silver 1 tab-cap PO DAILY 04/23/20 11/30/24 12/13/23 History omega-3 fatty acids 1,000 mg 3,000 mg PO DAILY 05/16/20 11/30/24 12/13/23 History capsule (Fish Oil Concentrate) docusate sodium 100 mg capsule 100 mg PO DAILY PRN PRN 02/04/21 11/30/24 12/13/23 History constipation psyllium husk 0.52 gram capsule 1.04 g PO HS 02/20/21 11/30/24 12/13/23 History (Metamucil) vibegron 75 mg tablet (Gemtesa) [address] Fajardo 09/08/23 11/30/24 12/13/23 History cholecalciferol (vitamin D3) 50 50 mcg PO DAILY 10/13/23 11/30/24 12/13/23 History mcg (2,000 unit) capsule Allergies Allergy/AdvReac Type Severity Reaction Status Date / Time acetaminophen (From Percocet) Allergy Severe Confusion Verified 11/30/24 15:16 oxycodone (From Percocet) Allergy Severe Confusion Verified 11/30/24 15:16 morphine Allergy Intermediate Itching Verified 11/30/24 15:16 MARIA LUZ Inhibitors Allergy Mild Cough Verified 11/30/24 15:16 lisinopril Allergy Mild Cough Verified 11/30/24 15:16 Review of Systems Review of Systems: All systems reviewed & are unremarkable except as noted in HPI and below Constitutional: Constitutional: Reports no additional constitutional complaints ENT: Reports as per HPI Cardiovascular: Cardiovascular: Reports no additional cardiovascular complaints, Denies chest pain and Denies dyspnea Respiratory: Respiratory: Reports no additional respiratory complaints, Denies chest congestion, Denies cough and Denies dyspnea Musculoskeletal: Musculoskeletal: Reports no additional musculoskeletal complaints Integumentary/Breasts: Skin/Breast: Reports system reviewed and no additional complaints, except as docu PMFSH Past Medical History Medical History BMI 36.0-36.9,adult Weakness of both hands Bilateral hand pain BMI 37.0-37.9, adult Rhinovirus BMI 38.0-38.9,adult Abdominal mass Chronic pain of right knee Grief Personal history of COVID-19 Lung nodule IVERSON (dyspnea on exertion) UTI (urinary tract infection) Rash BMI 39.0-39.9,adult Gout Insomnia Microscopic hematuria Onychomycosis Ruptured abdominal aortic aneurysm Seizure-like activity Testosterone deficiency Post-op pain Chronic low back pain LOUANN (obstructive sleep apnea) Dysuria Abdominal pain Dysphagia Encounter for routine adult health examination with abnormal findings Pre-operative clearance Elevated homocysteine Encounter for Medicare annual wellness exam Encounter for routine adult health examination without abnormal findings Hx of transient ischemic attack (TIA) Hospital discharge follow-up Tingling of upper extremity Tingling of face Body mass index (BMI) of 40.1 to 44.9 in adult Bladder cancer Hypothyroidism (acquired) History of CVA (cerebrovascular accident) Hearing loss DM type 2 (diabetes mellitus, type 2) Prostate cancer screening DJD (degenerative joint disease), multiple sites 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 Mixed hyperlipidemia History of abdominal aortic aneurysm (AAA) had repaired now being watched Colon cancer screening Benign essential hypertension ASHD (arteriosclerotic heart disease) Surgical History Surgical History Status post total knee replacement, left Status post total knee replacement, right History of intravascular stent placement Hx of hernia repair Status post urethral surgery S/P AAA repair History of total hip replacement Family History Family History Father Diabetes mellitus Family history of coronary artery disease Family history of diabetes mellitus in first degree relative Mother Family history of cardiovascular disease Family history of malignant neoplasm of brain Family history of heart disease in male family member before age 55 Social History Social History Social History: Smoking packs per day: 1 Smoking cigarettes per day: 20.0 Years smoked: 50 Smoking pack-years: 50.00 Smoking status: Former smoker Tobacco type: cigarettes Second hand tobacco smoke exposure: Yes Smoking end date: 11/01/04 Alcohol intake: current Drinks per week: 14 Alcohol use details: Daily; COCKTA[employer]S [employer] WINE Substance use: never Substance use type: does not use Lack of Transportation: No Lack of Food: Never True Current Housing: I Have Housing Concerned About Future Housing: No Difficulty Paying Gas/Electric Bills: No Difficulty Paying for Meds: No Currently Unemployed: No Education: Master's Degree or Higher Difficulty w/ Childcare or Family Care: No Living arrangements: alone Occupation/Education: retired Gender identity (if verbalized by the patient): Male Spiritual care concerns: No Agree to blood products: Yes Comments At the time of my signature, I reviewed and agree with the nursing past medical, surgical, social, and family history. There is no relevant family history pertinent to the patient complaint. Exam Const: General: cooperative, healthy appearing, comfortable, no acute distress, well developed, alert and well nourished Nutritional Appearance: well nourished Orientation/consciousness: patient oriented x3 Limitations: no limitations HENMT: Head: normal to inspection Ears: hearing grossly normal bilaterally, external ears normal and Abnormal EAC present foreign body on the right Eyes: General: appearance normal, both eyes and all related structures Alignment and Position: alignment normal Neck: Neck: normal visual inspection, full ROM, no lymphadenopathy and no meningeal signs Chest: Chest palpation & inspection: normal inspection of the chest Resp: Effort & Inspection: normal respiratory effort and able to speak in complete sentences Cardio: Rate: regular rate Skin: General skin exam: normal color and no rashes or lesions noted Neuro: General: patient oriented x3, gait normal, moves all extremities and no meningeal signs Cognition (Neuro): normal cognition Speech: normal speech Gait exam (Neuro): Normal gait present Extrem: General: normal to inspection, full ROM, capillary refill normal and normal gait Psych: Appearance: grossly normal and well kempt Mental Status: mental status grossly normal Speech and movement: Normal speech and movement present and Clear speech present Affect: normal affect Attitude: cooperative Course Course Level of Care: Express Care Visit Vital Signs Vital signs: Vital Signs Temperature 97.6 F 11/30/24 15:19 Pulse Rate 69 11/30/24 15:19 Respiratory Rate 16 11/30/24 15:19 Blood Pressure 149/74 H 11/30/24 15:19 Pulse Oximetry 97 11/30/24 15:19 Temperature 97.6 F 11/30/24 15:19 Pulse Rate 69 11/30/24 15:19 Respiratory Rate 16 11/30/24 15:19 Blood Pressure 149/74 H 11/30/24 15:19 Pulse Oximetry 97 11/30/24 15:19 Reviewed Procedures FB Removal Ear Foreign Body #1: Foreign Body Removal Date: 11/30/24 Foreign Body Removal Time: 16:10 Location: ear canal (R) Foreign Body Suspected: other plastic TM intact pre-procedure: unable to visualize If Insect Suspected: ear canal instilled with other Foreign Body Removed: yes Foreign Body Removal Technique: forceps Tympanic Membrane Intact Post Procedure: Yes Patient Tolerated Procedure: well Complications: none Medical Decision Making MDM Narrative Medical decision making narrative: Patient sitting comfortably in exam room. Nontoxic, vitals stable. Patient in no acute distress Patient presents for removal of foreign body from the right ear. Successfully removed using irrigation as well as alligator forceps. Patient tolerated well No trauma noted to the ear or TM Patient appropriate for outpatient treatment and follow-up Discharge instructions reviewed with patient, as well as provided in writing per nursing staff. The instructions also include specific and strict return/GO TO THE ER as well as f/u information. All questions have been answered, and the patient deny any further questions with discharge and discharge plan. Some parts of this dictation were generated by voice recognition software and may contain typographical and/or grammatical inaccuracies. Differential Diagnosis Differential Diagnosis: Foreign body ear Medical Records Medical records reviewed: Yes I reviewed the external patient's medical records. Vital Signs Vital Signs: Vital Signs Temperature 97.6 F 11/30/24 15:19 Pulse Rate 69 11/30/24 15:19 Respiratory Rate 16 11/30/24 15:19 Blood Pressure 149/74 H 11/30/24 15:19 Pulse Oximetry 97 11/30/24 15:19 Temperature 97.6 F 01/30/25 15:19 Pulse Rate 69 11/30/24 15:19 Respiratory Rate 16 11/30/24 15:19 Blood Pressure 149/74 H 11/30/24 15:19 Pulse Oximetry 97 11/30/24 15:19 Reviewed Lab Data Lab results reviewed: Yes I reviewed the patient's lab results. Labs: Reviewed Critical Care Time Critical Care Time Critical Care Time: No Discharge Plan Discharge Clinical Impression: Foreign body in right ear Qualifiers: Encounter type: initial encounter Qualified Code(s): T16.1XXA - Foreign body in right ear, initial encounter Patient Disposition: Home, Self-Care Condition: Stable Instructions: Antibiotic Form, Ear Foreign Body (ED) Patient Language: Indonesian Prescriptions: No Action Centrum Silver 1 tab-cap PO DAILY aspirin 325 mg tablet 325 mg PO DAILY amlodipine 10 mg tablet See Rx Instructions .ROUTE .COMPLEX Qty: 90 1RF Dose Instruction: TAKE 1 TABLET BY MOUTH EVERY MORNING AND 1/2 TABLET EVERY EVENING Rx Instructions: TAKE 1 TABLET BY MOUTH EVERY MORNING. testosterone [AndroGel] 20.25 mg/1.25 gram (1.62 %) gel in metered-dose pump 2 pump TOPICAL DAILY omega-3 fatty acids [Fish Oil Concentrate] 1,000 mg capsule 3,000 mg PO DAILY Rx Instructions: TAKES 2000MG MORNING & 1000MG EVENING (DME) blood-glucose meter [Blood Glucose Monitoring] Kit See Rx Instructions .Route Qty: 1 0RF Rx Instructions: As directed (DME) lancets 23 gauge misc See Rx Instructions .Route Qty: 100 1RF Rx Instructions: As directed psyllium husk [Metamucil] 0.52 gram Capsule 1.04 g PO HS docusate sodium 100 mg capsule 100 mg PO DAILY PRN (Reason: PRN constipation) Patient Comments: Patient rarely uses. Gemtesa 75 mg tablet 75 mg PO DAILY cholecalciferol (vitamin D3) 50 mcg (2,000 unit) capsule 50 mcg PO DAILY allopurinol 300 mg tablet See Rx Instructions .ROUTE .COMPLEX Qty: 90 1RF Dose Instruction: TAKE 1 TABLET BY MOUTH DAILY Rx Instructions: TAKE 1 TABLET BY MOUTH DAILY hydrochlorothiazide 25 mg tablet See Rx Instructions .ROUTE .COMPLEX Qty: 90 1RF Dose Instruction: TAKE 1 TABLET BY MOUTH DAILY Rx Instructions: TAKE 1 TABLET BY MOUTH DAILY celecoxib [Celebrex] 200 mg capsule 200 mg PO BID Qty: 180 1RF (DME) True Metrix Glucose Test Strip Strip See Rx Instructions .ROUTE .COMPLEX Qty: 50 1RF Dose Instruction: USE TO TEST ONCE DAILY DIRECTED BY PRESCRIBER Rx Instructions: USE TO TEST ONCE DAILY DIRECTED BY PRESCRIBER cyclobenzaprine 10 mg tablet 10 mg PO TID PRN (Reason: muscle spasm) Qty: 30 0RF candesartan 32 mg tablet See Rx Instructions .ROUTE .COMPLEX Qty: 90 1RF Dose Instruction: TAKE 1 TABLET BY MOUTH DAILY Rx Instructions: TAKE 1 TABLET BY MOUTH DAILY carvedilol 25 mg tablet See Rx Instructions .ROUTE .COMPLEX Qty: 180 1RF Dose Instruction: TAKE 1 TABLET BY MOUTH TWICE DAILY Rx Instructions: TAKE 1 TABLET BY MOUTH TWICE DAILY atorvastatin 80 mg tablet See Rx Instructions .ROUTE .COMPLEX Qty: 90 1RF Dose Instruction: TAKE 1 TABLET BY MOUTH DAILY Rx Instructions: TAKE 1 TABLET BY MOUTH DAILY levothyroxine 100 mcg tablet See Rx Instructions .ROUTE .COMPLEX Qty: 90 1RF Dose Instruction: TAKE 1 TABLET BY MOUTH DAILY Rx Instructions: TAKE 1 TABLET BY MOUTH DAILY Tradjenta 5 mg tablet See Rx Instructions .ROUTE .COMPLEX Qty: 90 0RF Dose Instruction: TAKE 1 TABLET BY MOUTH IN THE MORNING Rx Instructions: TAKE 1 TABLET BY MOUTH IN THE MORNING dapaglifloz propaned-metformin 10-1,000 mg tablet, IR - ER, biphasic 24hr See Rx Instructions .ROUTE .COMPLEX Qty: 90 0RF Dose Instruction: TAKE 1 TABLET BY MOUTH DAILY Rx Instructions: TAKE 1 TABLET BY MOUTH DAILY metformin 500 mg tablet See Rx Instructions .ROUTE .COMPLEX Qty: 90 1RF Dose Instruction: TAKE 1 TABLET(500 MG) BY MOUTH DAILY WITH THE EVENING MEAL Rx Instructions: TAKE 1 TABLET(500 MG) BY MOUTH DAILY WITH THE EVENING MEAL lorazepam 1 mg tablet 1 mg PO BID Qty: 60 1RF glimepiride 1 mg tablet 1 mg PO QAM Qty: 100 1RF Rx Instructions: administer with breakfast Follow-up/Referrals: Roberto Saleem MD [Primary Care Provider] - [facility] Time of Disposition: 16:19
== END 2024-11-30 16:34 | disposition home or self-care (01) ==
PROVIDERS: Emergency Provider Nurse Practitioner; PCP Internal Medicine
DX: T16.1XXA Foreign body in right ear, initial encounter (principal); W44.G1XA Audio device entering into or through a natural orifice, initial encounter; Z79.82 Long term (current) use of aspirin; G47.33 Obstructive sleep apnea (adult) (pediatric); E03.9 Hypothyroidism, unspecified; E11.9 Type 2 diabetes mellitus without complications; E78.2 Mixed hyperlipidemia; I10 Essential (primary) hypertension; Z96.653 Presence of artificial knee joint, bilateral; Z87.891 Personal history of nicotine dependence
CPT/HCPCS: 69200; 99212; G0463

== ENCOUNTER 2024-12-11 10:00 | Outpatient (CLI) | payer MEDICARE, SELFPAY ==
--- OUTSIDE RECORDS SUMMARY | 2024-12-11 10:45 | XMS_ITS | Referral Summary ---
Author Organization [facility] Address [address] [place] [address] Care Team Providers Care Measurement Technician Name Role Phone Nomi Moore MD PhD Unavailable [phone] Roberto Saleem MD Primary Care Provider [phone] Spencer Fulton MD Unavailable [phone] Encounters Date Type Department Care Team Description 10/06/2024 7:17 AM PRODUCT MERCHANDISER - 10/07/2024 11:00 AM [facility] Hospital Encounter [address] [phone] Spencer Fulton MD Arthritis of left knee (Primary Dx); Primary osteoarthritis of left knee; S/P total knee arthroplasty, left Discharge Disposition: Discharge to home or self care 10/06/2024 10:15 AM PRODUCT MERCHANDISER - 10/06/2024 1:00 PM [facility]ODUCT [facility]CH[facility] Surgery [facility] Operating Room [address] [place] [phone] Spencer Fulton MD Left Total Knee Arthroplasty 10/06/2024 10:15 AM [facility] Anesthesia Event [facility] Operating [facility] [address] [place] [phone] Josephine Ramirez MD [place], Justin Kyle, CRNA from Last 3 Months Allergies Active Allergy Reactions Criticality Noted Date Comments Lisinopril Cough Low 10/21/2021 Morphine Itching Medium 10/21/2021 Oxycodone Mental status changes,Delusions Medium 04/2024 Medications hydroCHLOROthiazid e (HYDRODIURIL) 25 mg tablet Take 1 tablet (25 mg total) by mouth every morning Active levothyroxine (SYNTHROID) 100 mcg tablet Take 1 tablet (100 mcg total) by mouth channel manager before breakfast Active carvedilol (COREG) 25 mg tablet Take 1 tablet (25 mg total) by mouth 2 (two) times a day with meals Active testosterone 20.25 mg/1.25 gram (1.62 %) gel in metered-dose pump Place 2 Pump on the skin daily Patient said he could do without this for several days Active candesartan (ATACAND) 32 mg tablet Take 1 tablet (32 mg total) by mouth every morning Active linaGLIPtin (TRADJENTA) 5 mg tabletIndications: type 2 diabetes mellitus Take 1 tablet (5 mg total) by mouth every morning Active amLODIPine (NORVASC) 10 mg tablet Take 0.5-1 tablets (5-10 mg total) by mouth 2 (two) times a day 10 mg in the am, 5 mg HS Active allopurinol (ZYLOPRIM) 300 mg tablet Take 1 tablet (300 mg total) by mouth every morning Active multivitamin tabletIndications: Vitamin Deficiency Prevention Take 1 tablet by mouth every morning Active omega 7-urd-hrf-fish oil 1,000 mg (120 mg-180 mg) capsule Take 1 capsule (1,000 mg total) by mouth daily with dinner Active OneTouch Verio test strips strip USE TO TEST BLOOD SUGAR TID 0 Active Xigduo XR 10-1,000 mg tablet, IR & ER, biphasic 24hr Take 1 tablet by mouth every morning 2 Active LORazepam (ATIVAN) 1 mg tablet Take 1 tablet (1 mg total) by mouth 2 (two) times a day at bedtime 2 Active metFORMIN (GLUCOPHAGE) 500 mg tablet Take 1 tablet (500 mg total) by mouth daily with dinner 2 Active vibegron (Gemtesa) 75 mg tablet Take 75 mg by mouth every morning Active atorvastatin (LIPITOR) 80 mg tablet Take 0.5 tablets (40 mg total) by mouth every morning Active glimepiride (AMARYL) 2 mg tabletIndications: type 2 diabetes mellitus Take 0.5 tablets (1 mg total) by mouth daily before breakfast Active celecoxib (CeleBREX) 200 mg capsule Take 1 capsule (200 mg total) by mouth 2 (two) times a day 60 capsule 1 4 Active ondansetron ODT (ZOFRAN-ODT) 4 mg disintegrating tablet Take 1 tablet (4 mg total) by mouth every 8 (eight) hours as needed for nausea or vomiting 20 tablet 1 4 Active cyclobenzaprine (FLEXERIL) 10 mg tablet Take 1 tablet (10 mg total) by mouth 3 (three) times a day as needed for muscle spasms Active aspirin 81 mg enteric coated tablet Take 1 tablet (81 mg total) by mouth 2 (two) times a day 4 Active Active Problems Problem Noted Date Diagnosed Date Arthritis of left knee 10/06/2024 Primary osteoarthritis of left knee 04/07/2024 Arthritis of right knee 01/20/2024 Varicella 01/17/2024 TGA (transient global amnesia) 01/17/2024 Sleep apnea 01/17/2024 HTN (hypertension) 01/17/2024 Gout 01/17/2024 Cataract 01/17/2024 Benign prostatic hyperplasia 01/17/2024 Cancer (CMS/HCC) 01/17/2024 Overview (01/17/2024): bladder (CIS) Arthritis 01/17/2024 Osteoarthritis of right knee 01/17/2024 CAD (coronary artery disease) 01/17/2024 Hypothyroid 01/17/2024 Obesity (BMI 30-39.9) 01/17/2024 Bladder cancer 01/17/2024 Primary osteoarthritis of right knee 10/14/2023 Current tear of medial cartilage or meniscus of knee 10/15/2021 Low back pain 10/15/2021 Osteoarthritis of hip 10/15/2021 TIA (transient ischemic attack) 10/31/2019 DM (diabetes mellitus) 10/31/2019 Thyroid disease 10/31/2019 Hyperlipidemia 10/06/2019 Hypertension 10/06/2019 History of repair of aneurys m of abdominal aorta using endovascular stent graft 09/27/2018 Assessment & Plan (10/20/2022 1:03 PM PRODUCT MERCHANDISER): Patient seen today for 1 year routine surveillance of an abdominal aortic aneurysm status post EVAR 06/25/2011. Patient denies any abdominal flank or back pain or claudication pain. Currently measuring 3.2 cm x 3.6 cm on duplex which unfortunately is a limited study. Patient to obtain a CT in the next few weeks and we will call with the results. Seen with Dr. Luna. Plan: Obtain CTA in the next few weeks and we will call with the results. He can follow-up in 1 year with an aortic duplex pending the CTA results. Abdominal aortic aneurysm, without rupture 08/20 Subdural hematoma 11/01/2012 Coronary artery disease 11/01/2004 Overview (10/31/2019): stent placed [facility] by Dr. Tompkins Immunizations Name Administration Dates Next Due Influenza, Quad, Adjuvantate d, Intramuscular 06/27/2020 Influenza, Quadrivalent, Hig h Dose, Preservative Free, Intrr 07/12/2021 Influenza, Quadrivalent, Spl it, Preservative Free, Intramuscular 06/27/2020 Influenza, Trivalent, Adjuva nted, Intramuscular 08/17/2019,07/11/2019,08/05/2018 Influenza, Trivalent, High D ose, Split, Preservative Free, Intramuscular 07/27/2017,08/04/2016,07/03/2015 Influenza, Trivalent, IM (MDV) 07/20/2014,2012 Influenza, Unspecified 07/11/2012 Pneumococcal Conjugate PCV 13 08/05/2018 Pneumococcal, Unspecified 10/01/2009 ZOSTER Recombinant 08/17/2019,07/11/2019, 019 Social History Tobacco Use Types Packs/Day Years Used Date Smoking Tobacco: Former Cigarettes Q uit: 2005 Smokeless Tobacco: Never Tobacco Cessation:Counseling Given: Not Answered Alcohol Use Standard Drinks/Week Comments Yes 21 (1 standard drink = 0.6 oz pu re alcohol) AUDIT-C Answer Date Recorded Q1: How often do you have a drink containing alcohol? 4 or more times a week 08/24/2024 Q2: How many drinks containi ng alcohol do you have on a typical day when you are drinking? 1 or 2 Q3: How often do you have si x or more drinks on one occasion? Never 08/24/2024 Personal Safety Answer Date Recorded Have you ever been in or are you currently in a harmful physical or emotional relationship or is someone making you feel afraid or unsafe? Denies 10/06/2024 Sex and Gender Information Value Date Recorded Sex Assigned at Not on file Legal Sex Male 12:37 PM [facility]ODUCT [facility]CH[facility] Gender Identity Male 02/02/2022 11:05 AM CDT Sexual Orientation Straight 02/02/2022 11 :05 AM CDT Last Filed Vital Signs Vital Sign Reading Time Taken Comments Blood Pressure 137/65 10/07/2024 8:35 AM [facility] Pulse 84 10/07/2024 8:35 AM [facility]CH[facility] Temperature 36.6 C (97.9 F) 10/07/2024 8:35 AM [facility]CH[facility] Respiratory Rate 18 10/07/2024 8:3 5 AM [facility]ODUCT MERCHAND[facility]ER Oxygen Saturation 98% 10/07/2024 8:35 AM PRODUCT MERCHANDISER Inhaled Oxygen Concentration - - Weight 124.7 kg (274 lb 14.6 oz) 10/06/2024 8:55 AM PRODUCT MERCHANDISER Height 180.3 cm (5' 10.98 ) 10/06/2024 8:55 AM C Body Mass Index 38.36 10/06/2024 8:55 AM PRODUCT [facility]CHANDISER Plan of Treatment Not on file Medical Devices Implanted Type Area Dress Fitter Device Identifier Shelf Expiration Date Model / Serial / Lot Total Hip Bilatera l: Hip [employer] Triathlon Tritanium Knee 7 Baseplate Tibial 5536-B-700 - [id number] Implanted:Qty: 1 on 01/20/2024 by Spencer Fulton MD at [facility] Right: Knee [employer] [id number] 09/27/2028 5536-B-70 0 / / [id number] [employer] Triathlon Cruciate Retain Bead Knee Right 7 Component Femoral Pa 5517-F-702 - [id number] Implanted:Qty: 1 on 01/20/2024 by Spencer Fulton MD at [facility] Right: Knee [employer] [id number] 11/04/2027 5517-F-70 2 / / [id number] [employer] Tritanium 38mm 11mm Asymmetric Knee Component Patellar Metal 5552-L-381 - [id number] Implanted:Qty: 1 on 01/20/2024 by Spencer Fulton MD at [facility] Right: Knee [employer] [id number] 12/11/2025 5552-L-38 1 / / [id number] [employer] Insert Tibial Triathlon 7 H9mm Knee Bearing Condylar Stabilize Sterile 3474-D-788-E - [id number] Implanted:Qty: 1 on 01/20/2024 by Spencer Fulton MD at [facility] Right: Knee [employer] [id number] 08/14/2028 5531-G-70 9-E / / [id number] [employer] Tritanium 38mm 11mm Asymmetric Knee Component Patellar Metal 5552-L-381 - [id number] Implanted:Qty: 1 on 10/06/2024 by Spencer Fulton MD at [facility] Left: Knee [employer] [id number] 07/16/2029 5552-L-38 1 / / [id number] [employer] Triathlon Cruciate Retain Bead Knee Left 8 Component Femoral Pa 5517-F-801 - [id number] Implanted:Qty: 1 on 10/06/2024 by Spencer Fulton MD at [facility] Left: Knee [employer] [id number] 07/15/2027 5517-F-80 1 / / [id number] [employer] Insert Tibial Triathlon 7 H10mm Knee Bearing Condylar Stabilize Sterile 7716-D-984-E - [id number] Implanted:Qty: 1 on 10/06/2024 by Spencer Fulton MD at [facility] Left: Knee [employer] [id number] 05/18/2029 5531-G-71 0-E / / [id number] [employer] Triathlon Tritanium Knee 7 Baseplate Tibial 5536-B-700 - [id number] Implanted:Qty: 1 on 10/06/2024 by Spencer Fulton MD at [facility] Left: Knee [employer] [id number] 07/27/2029 5536-B-70 0 / / [id number] Procedures Procedure Name Priority Date/Time Associated Diagnosis Comments POCT GLUCOSE DEVICE Routine 10/07/2024 6 :36 AM [facility]ER POCT GLUCOSE DEVICE Routine 10/06/2024 7 :11 PM [facility]ER POCT GLUCOSE DEVICE Routine 10/06/2024 7 :09 PM [facility] [facility]ER POCT GLUCOSE DEVICE Routine 10/06/2024 1 :15 PM PRODUCT MERCHANDISER UT AN PROCEDURE PLACEHOLDER Routine 10/06/2024 10:48 AM PRODUCT MERCHANDISER UT AN ELECTIVE ENDOTRACHEAL AIRWAY Routine 10/06/2024 10:48 AM [facility] [facility]CHAND[facility]ER ARTHROPLASTY TOTAL KNEE 10/06/2024 10:17 AM PRODUCT MERCHANDISER Primary osteoarthritis of left knee UT AN PROCEDURE PLACEHOLDER Routine 10/06/2024 9:43 AM PR[employer] [facility]CHANDISER POCT GLUCOSE DEVICE Routine 10/06/2024 8 :37 AM [facility]ER EGFR Routine 08/24/2024 11:09 AM CDT Preop testing HEMOGLOBIN A1C Routine 08/24/2024 11:09 AM CDT Preop testing LIPID PANEL Routine 11/01/2019 4:44 AM PRODUCT [facility]CHANDISER from Last 3 Months or Most Recently Relevant to Health Maintenance Results * POCT glucose (10/07/2024 6:36 AM PRODUCT MERCHANDISER) [facility] Signature Glucose, POC 174 70 - 199 mg/dL Comment: For Glucose values <35 mg/dl when Hematocrit is >60 mg/dl,the test may not accurately detect significant hypoglycemia,and testing in the Laboratory should be considered if clinically indicated. Blood 10/07/2024 6:36 AM PRODUCT MERCHANDISER 10/07/2024 6:36 AM PRODUCT MERCHANDISER Result [facility] Spencer Fulton MD LAB POCT ORDERABLES - DEVICE Final Result Performing Organization Address [facility] Co de Phone Number [facility] [address] [facility] [place] [address] * POCT glucose (10/06/2024 7:11 PM PRODUCT MERCHANDISER) Glucose, POC 192 70 - 199 mg/dL Comment: For Glucose values <35 mg/dl when Hematocrit is >60 mg/dl,the test may not accurately detect significant hypoglycemia,and testing in the Laboratory should be considered if clinically indicated. Blood 10/06/2024 7:11 PM PRODUCT MERCHANDISER 10/06/2024 7:11 PM PRODUCT MERCHANDISER Result [facility] Spencer Fulton MD LAB POCT ORDERABLES - DEVICE Final Result Performing Organization Address [facility] de Phone [facility] [address] [facility] [place] [place] [address] * (ABNORMAL) POCT glucose (10/06/2024 7:09 PM PRODUCT MERCHANDISER) Glucose, POC 302(H) 70 - 199 mg/dL Comment: For Glucose values <35 mg/dl when Hematocrit is >60 mg/dl,the test may not accurately detect significant hypoglycemia,and testing in the Laboratory should be considered if clinically indicated. Blood 10/06/2024 7:09 PM PRODUCT MERCHANDISER 10/06/2024 7:09 PM PRODUCT MERCHANDISER Spencer Fulton MD LAB POCT ORDERABLES - DEVICE Final Result Performing Organization Address [facility] Co de Phone Number [facility] [address] Department [place] [address] * POCT glucose (10/06/2024 1:15 PM PRODUCT MERCHANDISER) Glucose, POC 186 70 - 199 mg/dL Comment: For Glucose values <35 mg/dl when Hematocrit is >60 mg/dl,the test may not accurately detect significant hypoglycemia,and testing in the Laboratory should be considered if clinically indicated. Blood 10/06/2024 1:15 PM PRODUCT MERCHANDISER 10/06/2024 1:15 PM PRODUCT MERCHANDISER us Spencer Fulton MD LAB POCT ORDERABLES - DEVICE Final Result [facility] [address] Department [place] [address] * UT AN ELECTIVE ENDOTRACHEAL AIRWAY, UT AN PROCEDURE PLACEHOLDER (10/06/2024 10:48 AM PRODUCT MERCHANDISER) Narrative Demar Vergara CRNA - 10/06/2024 10:48 AM PRODUCT [facility]CHANDISER Demar Vergara CRNA 10/06/2024 10:51 AM Airway Patient location: OR Urgency: elective Indications for airway management: airway protection and anesthesia Difficult airway: no Staff: Supervising provider: Josephine Ramirez MD Placed by: CAR SCRUBBER: Demar Vergara CRNA Emergent airway documentation: Risks and benefits discussed: yes Consent obtained: yes Consent given by: patient Airway prep: Preoxygenated: yes Patient position: sniffing MILS maintained throughout: yes Mask difficulty assessment: 2 - vent by mask + OA or adjuvant Spontaneous ventilation during airway: absent Sedation level during airway: deep Final airway details: Final airway type: endotracheal airway Tube type: ETT ETT size: 8.0 mm Cuffed: yes Technique used for successful ETT placement: direct laryngoscopy Devices/Methods used in placement: stylet Insertion site: oral Blade type: Juárez Blade size: 3 Cormack-Lehane (direct): grade I - full view of glottis Cuff volume: 8 mL Cuff inflated with: air Placement verified by: CO2 detection Airway secured with: silk tape Number of attempts: 1 us Josephine Ramirez MD ANESTHESIA ORDERABLES Fin al Result * UT AN PROCEDURE PLACEHOLDER (10/06/2024 9:43 AM PRODUCT MERCHANDISER) Narrative Josephine Ramirez MD - 10/06/2024 9:43 AM PRODUCT MERCHANDISER Josephine Ramirez MD 10/06/2024 9:44 AM Peripheral Block Patient location during procedure: pre-op holding End time: 10/06/2024 9:43 AM Reason for block: post-op pain management per surgeon request Ultrasound image in chart or stored: yes Block type: single shot Laterality: left Block type: saphenous nerve block - subsartorial approach Staff: Supervising provider: Josephine Ramirez MD Placed by: Anesthesiologist: Josephine Ramirez MD Procedure prep: Preprocedure checklist: patient identified, procedure contraindications assessed, site marked, procedure consent, surgical consent, IV checked, risks, benefits and alternatives discussed, monitors and equipment checked and timeout performed Patient position: supine Procedure performed while patient: sedate with meaningful contact Monitoring: ECG, oximetry and blood pressure Supplemental O2: nasal cannula Prep solution: chlorhexidine/alcohol PPE: provider hat/mask and sterile gloves Peripheral nerve block: Technique: ultrasound guided Needle type: insulated Needle gauge: 21 G Needle length: 100 mm Assessment: Block success: full evaluation pending Events: patient tolerated procedure well with no complications Josephine Ramirez MD ANESTHESIA ORDERABLES Fin al Result * POCT glucose (10/06/2024 8:37 AM PRODUCT MERCHANDISER) [facility] Glucose, POC 144 70 - 199 mg/dL Comment: For Glucose values <35 mg/dl when Hematocrit is >60 mg/dl,the test may not accurately detect significant hypoglycemia,and testing in the Laboratory should be considered if clinically indicated. Blood 10/06/2024 8:37 AM PRODUCT MERCHANDISER 10/06/2024 8:37 AM PRODUCT MERCHANDISER Spencer Fulton MD LAB POCT ORDERABLES - DEVICE Final Result [facility] [address] Department [place] [address] * eGFR (08/24/2024 11:09 AM CDT) eGFR 89 >=60 mL/min/1. 73 m2 Comment: Interpretive Data Reference Interval Normal >/= 90 mL/min/1.73m2 Mildly decreased* 60 - 89 mL/min/1.73m2 Mildly to moderately decreased 45 - 59 mL/min/1.73m2 Moderately to severely decreased 30 - 44 mL/min/1.73m2 Severely decreased 15 - 29 mL/min/1.73m2 Kidney Failure < 15 mL/min/1.73m2 *Relative to young adult level Estimated glomerular filtration rate is determined by the 2020 CKD-EPI equation recommended by the National Kidney Foundation (A Unifying Approach to GFR Estimation: Recommendations of the NKF-ASK Task Force on Reassessing the Inclusion of Race in Diagnosing Kidney Disease, JASN 2020). The CKD-EPI equation should not be used for patients with unstable renal function and has not been validated in children and those over 70. Current interpretive data was last reviewed 2021. Blood 08/24/2024 11:0 9 AM CDT 08/24/2024 11:09 AM CDT us Tabby RUBIO LAB BLOOD ORDERABLES Fin al Result [facility] [address] Department [place] [address] * (ABNORMAL) Hemoglobin A1c (08/24/2024 11:09 AM CDT) Hgb A1C 7.0(H) 4.0 - 5.6 % Estimated Average Glucose 154 mg/dL [facility] Comment: The ADA recommends reporting an estimated Average Glucose (eAG) with all Hemoglobin A1c results using the equation derived from a study of 507 normal and diabetic adults. Minority populations were underrepresented and children were not included. (Diabetes Care 31:7604-8285, 2008). The eAG is not equivalent to a fasting glucose. Blood 08/24/2024 11:0 9 AM CDT 08/24/2024 11:09 AM CDT us Tabby Cassandra Gregory PA LAB BLOOD ORDERABLES Fin al Result [facility] [address] Department [place] [address] * (ABNORMAL) Lipid panel (11/01/2019 4:44 AM PRODUCT MERCHANDISER) Cholesterol 127 30 - 199 mg/dL [facility] Comment: Interpretive Data Ages < or = 19 years Acceptable: <170 mg/dL Borderline high: 170-199 mg/dL High: >or= 200 mg/dL Ages > or = 20 years Desirable: <200 mg/dL Borderline high: 200-239 mg/dL High: >or= 240 mg/dL Literature References: 1. Expert Panel on Integrated Guidelines for Cardiovascular Health and Risk Reduction in Children and Adolescents. Pediatrics 2011;128:S213 2. NCEP Expert Panel. Circulation 2004;110:227 Current Interpretive Data was last revised on 2018. Triglycerides 250(H) <=149 mg/dL [facility] Comment: Interpretive Data Ages < or = 9 years Acceptable: <75 mg/dL Borderline high: 75-99 mg/dL High: >or= 100 mg/dL Ages 10 to 20 years Acceptable: <90 mg/dL Borderline high: 90-129 mg/dL High: >or= 130 mg/dL Ages > or = 20 years Desirable: <150 mg/dL Borderline high: 150-199 mg/dL High: 200-499 mg/dL Very high: >or= 499 mg/dL Literature References: 1. Expert Panel on Integrated Guidelines for Cardiovascular Health and Risk Reduction in Children and Adolescents. Pediatrics 2011;128:S213 2. NCEP Expert Panel. Circulation 2004;110:227 Current Interpretive Data was last revised on 2018. HDL 33(L) >=40 mg/dL [facility] Comment: Interpretive Data Ages < or = 19 years Acceptable: >45 mg/dL Borderline low: 40-45 mg/dL Low: <40 mg/dL Ages > or = 20 years Desirable: >or= 60 mg/dL Low: <40 mg/dL Literature References: 1. Expert Panel on Integrated Guidelines for Cardiovascular Health and Risk Reduction in Children and Adolescents. Pediatrics 2011;128:S213 2. NCEP Expert Panel. Circulation 2004;110:227 Current Interpretive Data was last revised on 2018. LDL, calculated 44 <=129 mg/dL [facility] Comment: Interpretive Data Ages < or = 19 years Acceptable: <110 mg/dL Borderline high: 110-129 mg/dL High: >or= 130 mg/dL Ages > or = 20 years Optimal: <100 mg/dL Near optimal: 100-129 mg/dL Borderline high: 130-159 mg/dL High: >160 mg/dL Literature References: 1. Expert Panel on Integrated Guidelines for Cardiovascular Health and Risk Reduction in Children and Adolescents. Pediatrics 2011;128:S213 2. NCEP Expert Panel. Circulation 2004;110:227 Current Interpretive Data was last revised on 2018. Non-HDL Cholesterol 94 mg/dL [facility] Comment: Interpretive Data Ages < or = 19 years Acceptable: <120 mg/dL Borderline high: 120-144 mg/dL High: >145 mg/dL Ages > or = 20 years When triglycerides are >200 mg/dL, Non-HDL cholesterol is a secondary target of therapy with treatment goals that are 30 mg/dL greater than the LDL cholesterol target. Literature References: 1. Expert Panel on Integrated Guidelines for Cardiovascular Health and Risk Reduction in Children and Adolescents. Pediatrics 2011;128:S213 2. NCEP Expert Panel. Circulation 2004;110:227 Current Interpretive Data was last revised on 2018. Chol/HDL ratio 4 [facility] Blood specimen (specimen) 11/01/2019 4:44 AM PRODUCT MERCHANDISER 11/01/2019 5:17 AM PRODUCT MERCHANDISER us Kenzie Amaya MD LAB BLOOD ORDERABLES Final Result [facility] [address] [place] [address] from Last 3 Months or Most Recently Relevant to Health Maintenance Insurance MEDICARE SOLUTIONS [facility] MEDICARE [facility] MEDICARE MEDICARE SOLUTIONS [employer] MEDICARE Advance Directives For more information, please contact: [phone] Documents on File Type Date Recorded Patient Investment Strategist Expl anation ADVANCE DIRECTIVE 01/25/2024 2:02 AM POWER OF CONVERSION DEVELOPER-MEDICAL * Full Code (Latest Code Status on File) Date Activated Date Inactivated Comments 10/06/2024 6:40 PM 10/07/2024 3:38 PM * Full Code Date Activated Date Inactivated Comments 01/20/2024 12:53 PM 01/21/2024 4:25 PM * Full Code Date Activated Date Inactivated Comments 10/31/2019 7:01 PM 11/01/2019 6:11 PM Care Teams Measurement Technician Relationship Specialty Start Date End Date Roberto Saleem MD [address] [facility] [address] [place] [address] PCP - General 10/31/19 Nomi Moore MD PhD [address] [facility] [address] [place] [address] Consulting Physician Neurology 11/01/19 Spencer Fulton MD [address] [facility] [address] [facility] [address] [place] [address] Consulting Physician Orthopedic Surgery 10/26/23
--- OUTSIDE RECORDS SUMMARY | 2024-12-11 10:45 | XMS_ITS | Data Portability ---
Author Organization [place] [facility], Main Office Address [address] [place] [address] Assessment Encounter Date Assessment Date Assessment LastModified by Organization Details LastModified Time 02/11/2023 02/11/2023 the patient has a left 4th trigger finger with flexor tenosynovitis. The patient and I discussed treatment options in detail today he wanted proceed with cortisone therefore under sterile conditions I injected the patient's left 4th finger at the A1 teddy site into the flexor tendon sheath with 2 cc 0.5% ropivacaine and 10 mg of Kenalog. Patient tolerated procedure well. If this works then we will leave it alone if not there is a possibility of surgical intervention we talked about this in detail today he would like to avoid this. I will see him back as needed he voiced understanding agrees above plan will call for any further problems difficulties or questions. Not available 02/11/2023 09:50:51 03/04/2023 03/04/2023 Patient has advanced primary osteoarthritis both knee joints as described. Under sterile conditions I injected both knee joints in the office today with 4 cc 0.5% ropivacaine and 20 mg of Kenalog. Patient tolerated procedure well. We will see him back as needed he will continue with current conservative measures call for any further problems difficulties or questions he voiced understanding and agrees with above plan. Not available 03/04/2023 09:09:23 07/08/2023 07/08/2023 The patient has advanced primary osteoarthritis both knees. We have talked about treatment options previously and again today he would like to proceed with cortisone this get him by he would rather do that than have surgery. At his request under sterile conditions I injected both knee joints in the office today with 4 cc 0.5% ropivacaine and 20 mg of Kenalog each. The patient tolerated the procedure well. I will see him back as needed he will continue with current conservative measures call for any further problems difficulties or questions he voiced understanding agrees above plan. Not available 07/08/2023 09:46:22 10/14/2023 10/14/2023 The patient has severe primary osteoarthritis both knees right worse than left as described. Under sterile conditions I injected the patient's bilateral knee joints in the office today with 4 cc 0.5% bupivacaine and 20 mg of Kenalog each. The patient tolerated the procedure well. I will see him back as needed he will continue with current conservative measures call for any further problems difficulties or questions he voiced understanding agrees with above plan. Not available 10/14/2023 14:35:57 Plan of Treatment Reminders Order Date Submit Date Provider Last Modified By Organization Details Last Modified Time Details Appointments None recorded. Lab None recorded. Referral None recorded. Procedures injection/a spiration joint/bursa (PROC) - in office procedure, administere d by provider 2022 023 [email or web address] In-Office Order, Internal Use Only DO Not Attach Compendium DO Not Attach Compendium, Do Not Delete/merge, [id number] 09:27:11 injection/a spiration joint/bursa (PROC) - in office procedure, administere d by provider 2022 023 [email or web address] In-Office Order, Internal Use Only DO Not Attach Compendium DO Not Attach Compendium, Do Not Delete/merge, [id number] 08:57:06 injection/a spiration joint/bursa (PROC) - in office procedure, administere d by provider 2022 023 [email or web address] In-Office Order, Internal Use Only DO Not Attach Compendium DO Not Attach Compendium, Do Not Delete/merge, [id number] 09:40:43 injection/a spiration joint/bursa (PROC) 2022 023 [email or web address] In-Office Order, Internal Use Only DO Not Attach Compendium DO Not Attach Compendium, Do Not Delete/merge, [id number] 14:13:11 Surgeries None recorded. Imaging XR, hand, 3 or more view 2022 023 [email or web address] [facility] [place], [address], [place], [address], 3 09:55:58 XR, knee 2022 023 [email or web address] [facility] [place], [address], [place], [address], 3 10:00:08 Medication Orders Kenalog 10 mg/mL suspension for injection 2022 023 [facility] #[id number], [address] [place] [address], [id number], 3 09:53:52 ropivacaine (PF) 5 mg/mL (0.5 %) injection solution 2022 023 [facility] #64318, [address] [place] [address], [id number], 3 09:53:52 Kenalog 10 mg/mL suspension for injection 2022 023 [facility] #38885, [address] [place] [address], [id number], 3 09:07:20 ropivacaine (PF) 5 mg/mL (0.5 %) injection solution 2022 023 [facility] #96178, [address] [place] [address], [id number], 3 09:07:20 Kenalog 10 mg/mL suspension for injection 2022 023 [facility] #29722, [address] [place] [address], [id number], 3 09:55:28 ropivacaine (PF) 5 mg/mL (0.5 %) injection solution [address] [facility] #47343, [address] [facility] [address] [facility], [place], [id number], 3 09:55:28 bupivacaine HCl 0.5 % (5 mg/mL) injection solution [address] [facility] #40033, [address] [facility] [address] [facility], [place], [place], [id number], 3 15:17:55 Kenalog 10 mg/mL suspension for injection [address] [facility] #12604, [address] [facility] [address] [facility], [place], [place], [id number], 3 15:17:55 Patient TargetsNo targets recorded. Patient InstructionsNo instructions recorded. Reason for Referral None Reported. Results Created Date Observation Date Name Description Value Unit Range Abnormal Flag Note LastModifiedBy Organization Detail LastModifiedTime 11/30/19 23 XR, foot, 3 or more view No observ ation record ed. [id number] [facility] [place] [address] [facility] [address], [place], [address], 12/30/2022 13:53:28 02/12/20 23 XR, hand, 3 or more view No observ ation record ed. [facility] [place] [address], [address], 02/11/2023 09:52:08 07/08/20 23 XR, knee No observ ation record ed. [facility] [place] [address] [facility] [address], [place], [address], 07/08/2023 09:55:03 Result Notes None recorded. Problems Name Problem SNOMED Code Status Onset Date Resolution Date Notes Provider Name and Address Organization Details Recorded Time Trigger finger of right hand 4558445930440 9101 Active 2021 Not Available [facility] [place] 3 13:51:57 Radiothera py follow-up 950663369 Active Not Available [facility] 3 13:51:57 Localized, primary osteoarthr itis of the ankle and/or foot Active 2022 Not Available [facility] 3 13:51:58 Localized, primary osteoarthr itis of the ankle and/or foot 236706221 Active 2022 Not Available [facility] 3 13:51:58 Osteoarthr itis of hip 939211824 Active Not Available [facility] 3 13:51:58 Low back pain 688428109 Active Not Available [facility] [place] 3 13:51:58 Current tear of medial cartilage AND/OR meniscus of knee Active Not Available [facility] 3 13:51:58 Knee pain Active Not Available [facility] 3 13:51:58 Knee pain Active 2019 Not Available [facility] 3 13:51:58 Pain of left hand 8407160464806 03 Active 2021 Not Available [facility] 3 13:51:58 Osteoarthr itis 911014773 Active Not Available [facility] [place] 3 13:51:58 Pain of bilateral knee joints 9395230834982 04 Active 2021 Not Available [facility] 3 13:51:58 Derangemen t of knee 58751699 Active Not Available [facility] [place] 3 13:51:58 Pain in left foot 6609693587639 07 Active 2022 VIRGIE Rincon null, [place] [facility] 3 09:24:30 Acquired trigger finger of left ring finger 2976047705206 09 Active 2022 JOANNE Holbrook [facility] [address], [place], [address] , [place] [facility] 09:51:01 Problem Notes None recorded. Procedures Surgical History Date Name Laterality Status Provider Name and Address Organization Details Recorded Time hip joint reconstruction completed Not Available [facility] [place] 12/30/2022 13:51:43 Knee completed VIRGIE Rincon [place] [facility] 02/11/2023 09:23:41 Imaging Results Imaging Date Name Status LastModified by Organiz ation Details LastModified Time 11/30/2022 XR, foot, 3 or more view completed [id number] [facility] [place] [address] [facility] [address], [place], [address], 12/30/2022 13:53:28 02/11/2023 XR, hand, 3 or more view completed [facility] [place] [address] [facility] [address], [place], [address], 02/11/2023 09:52:08 07/08/2023 XR, knee completed [facility] [place] [address] [facility] [address], [place], [address], 07/08/2023 09:55:03 Procedure Notes None recorded. Medical Equipment None Reported. Allergies Allergen ID Allergen Name Allergen Category Reaction Reaction Severity Criticality Documentation Date Start Date Code Code System Note Provider Name and Address Organization Details Recorded Time 34799 morphine medicatio n itching Not available Not available 12/30/2022 7052 RxNorm Not Available [facility] [place] 13:53:27 94956 Product containin g angiotens in-conver ting enzyme inhibitor (product) medicatio n cough Not available Not available 12/30/2022 11343 009 SNOMED Not Available [facility] [place] 13:53:27 Medications Name Sig Start Date Stop Date Status Note LastModified by Organization Details LastModified Time celecoxib 200 mg capsule TAKE 1 CAPSULE BY MOUTH EVERY DAY active Not Available Not Available No t Available cyclobenz aprine 10 mg tablet active Not Available Not Available No t Available amoxicill in 500 mg capsule TAKE 1 CAPSULE BY MOUTH EVERY 8 HOURS FOR 7 DAYS 02/11 completed Not Available Not Available Not Available furosemid e 40 mg tablet TAKE 1 TABLET BY MOUTH EVERY MORNING. [place] HCTZ. THANK YOU 02/11 completed Not Available Not Available Not Available metformin 500 mg tablet active Not Available Not Available Not Available atorvasta tin 80 mg tablet TAKE 1 TABLET BY MOUTH DAILY active Not Available Not Available No t Available carvedilo l 25 mg tablet TAKE 1 TABLET BY MOUTH TWICE DAILY active Not Available Not Available No t Available potassium chloride ER 10 mEq capsule,e xtended release TAKE 1 CAPSULE BY MOUTH DAILY 02/11 completed Not Available Not Available Not Available prednison e 10 mg tablet 11/25 completed Not Available Not Available Not Available doxycycli ne hyclate 100 mg capsule TAKE 1 CAPSULE BY MOUTH TWICE DAILY FOR 10 DAYS 02/11 completed Not Available Not Available Not Available atorvasta tin 20 mg tablet 12/21 completed Not Available Not Available Not Available trazodone 50 mg tablet Take 1 tablet every day by oral route. 07/29 completed Not Available Not Available Not Available azithromy nils 250 mg tablet 12/21 completed Not Available Not Available Not Available hydrocodo ne 5 mg-acetam inophen 325 mg tablet TAKE 1 TABLET BY MOUTH EVERY 6 HOURS NEEDED FOR PAIN 02/11 completed Not Available Not Available Not Available phenazopy ridine 200 mg tablet TAKE 1 TABLET BY MOUTH THREE TIMES DAILY active Not Available Not Available No t Available bupivacai ne HCl 0.5 % (5 mg/mL) injection solution Take 40 mg by injectio n route. 2022 active Not Available Not Available Not Avai lable clobetaso l 0.05 % topical cream active Not Available Not Available Not Available metronida zole 500 mg tablet 12/21 completed Not Available Not Available Not Available ciproflox acin 500 mg tablet TAKE 1 TABLET BY MOUTH EVERY 12 HOURS 11/25 completed Not Available Not Available Not Available sulfameth oxazole 800 mg-trimet hoprim 160 mg tablet TAKE 1 TABLET BY MOUTH TWICE DAILY UNTIL ALL TAKEN active Not Available Not Available No t Available hydrocodo ne 10 mg-acetam inophen 325 mg tablet 12/21 completed Not Available Not Available Not Available glimepiri de 2 mg tablet TAKE 1 TABLET BY MOUTH TWICE DAILY active Not Available Not Available No t Available prednison e 10 mg tablets in a dose pack Take 1 tab by mouth, 3 times a day for 3 daysTake 1 tab by mouth 2 times a day for 2 daysTake 1 tab by mouth once a day for 1 day 11/25 completed Not Available Not Available Not Available levothyro xine 100 mcg tablet TAKE 1 TABLET BY MOUTH DAILY active Not Available Not Available No t Available oxycodone -acetamin ophen 5 mg-325 mg tablet TK 1 T PO Q 6 H PRN 12/21 completed Not Available Not Available Not Available terbinafi ne HCl 250 mg tablet TAKE 1 TABLET BY MOUTH DAILY FOR 3 WEEKS active Not Available Not Available No t Available famotidin e 20 mg tablet TAKE 1 TABLET BY MOUTH DAILY UNTIL ALL TAKEN active Not Available Not Available No t Available DOK 100 mg capsule TK ONE C PO BID FOR FIVE DAYS 12/28 completed Not Available Not Available Not Available aspirin 325 mg tablet,de layed release TK 1 T PO QD active Not Available Not Available No t Available Lidoderm 5 % topical patch 12/21 completed Not Available Not Available Not Available Kenalog 10 mg/mL suspensio n for injection Take 40 mg by injectio n route. 2022 active [facility]: [phone] 02-18 Not Available Not Available Not Available amlodipin e 10 mg tablet TAKE 1 TABLET BY MOUTH EVERY MORNING AND 1/2 TABLET EVERY EVENING active Not Available Not Available No t Available hyoscyami ne 0.125 mg disintegr ating tablet DIS 1 T PO Q 6 H PRF BLADDER SPASM 12/28 completed Not Available Not Available Not Available cephalexi n 500 mg capsule TK 1 C PO Q 12 H FOR 5 DAYS active Not Available Not Available No t Available metformin 1,000 mg tablet 12/21 completed Not Available Not Available Not Available triamcino lone acetonide 0.1 % topical ointment 12/21 completed Not Available Not Available Not Available nystatin- triamcino lone 100,000 unit/g-0. 1 % topical cream APPLY TOPICALL Y TO THE AFFECTED AREA THREE TIMES DAILY 02/11 completed Not Available Not Available Not Available candesart an 32 mg tablet TAKE 1 TABLET BY MOUTH DAILY active Not Available Not Available No t Available betametha sone dipropion ate 0.05 % topical cream APPLY TOPICALL Y TO THE AFFECTED AREA TWICE DAILY NEEDED FOR RASH 02/11 completed Not Available Not Available Not Available allopurin ol 300 mg tablet TAKE 1 TABLET BY MOUTH DAILY active Not Available Not Available No t Available hydrochlo rothiazid e 25 mg tablet TAKE 1 TABLET BY MOUTH DAILY active Not Available Not Available No t Available lorazepam 1 mg tablet TAKE 1 TABLET BY MOUTH TWICE DAILY active Not Available Not Available No t Available ibuprofen 600 mg tablet TAKE 1 TABLET BY MOUTH THREE TIMES DAILY FOR 7 DAYS active Not Available Not Available No t Available methylpre dnisolone 4 mg tablets in a dose pack FOLLOW PACKAGE DIRECTIO NS active Not Available Not Available No t Available dexametha sone 1.5 mg tablet 04/28 completed Not Available Not Available Not Available celecoxib 100 mg capsule active Not Available Not Available Not Available oxybutyni n chloride 5 mg tablet TAKE 1 TABLET BY MOUTH TID PRN FOR SPASMS 12/28 completed Not Available Not Available Not Available lisinopri l 40 mg tablet 12/21 completed Not Available Not Available Not Available cefdinir 300 mg capsule 12/21 completed Not Available Not Available Not Available clotrimaz ole 1 % topical cream APPLY TOPICALL Y TO LOWER LEG TWICE DAILY FOR 4 WEEKS active Not Available Not Available No t Available ezetimibe 10 mg tablet TAKE 1 TABLET BY MOUTH DAILY active Not Available Not Available No t Available metformin ER 750 mg tablet,ex tended release 24 hr 12/21 completed Not Available Not Available Not Available Ciprodex 0.3 %-0.1 % ear drops,mela pension active Not Available Not Available Not Available nitrofura ntoin monohydra te/macroc rystals 100 mg capsule TAKE 1 CAPSULE BY MOUTH TWICE DAILY 02/11 completed Not Available Not Available Not Available ezetimibe 10 mg-simvas tatin 20 mg tablet 12/21 completed Not Available Not Available Not Available Euflexxa 10 mg/mL (mw 2.4-3.6 million) intra-art icular syringe Injectio ns given in the office by the doctor 03/25 completed [facility]: [id number] Not Available Not Available Not Available oxycodone 04/28 completed Not Available Not Available Not Available lisinopri l 03/25 completed Not Available Not Available Not Available AndroGel 2019 active Not Available Not Available Not Avai lable Acid Controlle r 2019 active Not Available Not Available Not Avai lable lidocaine (PF) 10 mg/mL (1 %) injection solution In office injectio n administ ered by the provider 11/25 completed [facility]: 0409-427 6 Not Available Not Available Not Available Januvia 100 mg tablet 12/21 completed Not Available Not Available Not Available OneTouch Delica Lancets 33 gauge 12/21 completed Not Available Not Available Not Available Tradjenta 5 mg tablet TAKE 1 TABLET BY MOUTH IN THE MORNING active Not Available Not Available No t Available testoster one 20.25 mg/1.25 gram per pump act.(1.62 %) transderm al gel APPLY 1 PUMP TRANSDER BERNIE TWICE DAILY OVER MAX AREAS OF UPER ARM AND SHOULDER ROTATING APPLICAT ION SITE active Not Available Not Available No t Available ropivacai ne (PF) 5 mg/mL (0.5 %) injection solution Take 40 mg by injectio n route. 2022 active [facility] 98703-08 4- Not Available Not Available Not Available Ultra Thin Lancets 30 gauge USE ONCE DAILY DIRECTED active Not Available Not Available No t Available Invokana 300 mg tablet 12/21 completed Not Available Not Available Not Available Virtussin AC 10 mg-100 mg/5 mL oral liquid 12/21 completed Not Available Not Available Not Available Stendra 200 mg tablet TAKE 1 TABLET BY MOUTH NEEDED active Not Available Not Available No t Available Fluvirin [id number] 45 mcg (15 mcg x 3)/0.5 mL intramusc ular suspensio n INJECT 0.5 ML INTRAMUS CULARLY DIRECTED . 12/21 completed Not Available Not Available Not Available marijuana (cannabis ) 04/28 completed Not Available Not Available Not Available Invokamet 50 mg-1,000 mg tablet Take 1 tablet twice a day by oral route. 04/28 completed Not Available Not Available Not Available True Metrix Glucose Test Strip USE TO TEST BLOOD SUGAR ONCE DAILY DIRECTED active Not Available Not Available No t Available True Metrix Glucose Meter USE TO TEST ONCE DAILY DIRECTED active Not Available Not Available No t Available Xigduo XR 10 mg-1,000 mg tablet,ex tended release TAKE 1 TABLET BY MOUTH DAILY active Not Available Not Available No t Available Belsomra 15 mg tablet 12/21 completed Not Available Not Available Not Available Fluzone High-Dose (PF) 180 mcg/0.5 mL intramusc ular syringe 12/21 completed Not Available Not Available Not Available Fluzone High-Dose (PF) 180 mcg/0.5 mL intramusc ular syringe active Not Available Not Available Not Available Invokamet XR 150 mg-1,000 mg tablet, extended release TK 1 T PO D active Not Available Not Available No t Available Fluzone High-Dose (PF) 180 mcg/0.5 mL intramusc ular syringe 12/21 completed Not Available Not Available Not Available Shingrix (PF) 50 mcg/0.5 mL intramusc ular suspensio n, kit PHARMACI ST ADMINIST ERED IMMUNIZA TION ADMINIST ERED AT TIME OF DISPENSI NG 12/28 completed Not Available Not Available Not Available Fluad 65yr up(PF)45 mcg(15 mcgx3)/0. 5 mL intramusc ular syringe PHARMACI ST ADMINIST ERED IMMUNIZA TION ADMINIST ERED AT TIME OF DISPENSI NG 12/28 completed Not Available Not Available Not Available Fluad Quad (65yr up)(PF) 60 mcg (15 mcg x 4)/0.5mL IM syringe PHARMACI ST ADMINIST ERED IMMUNIZA TION ADMINIST ERED AT TIME OF DISPENSI NG 02/11 completed Not Available Not Available Not Available Gemtesa 75 mg tablet TAKE 1 TABLET BY MOUTH DAILY active Not Available Not Available No t Available Lagevrio 200 mg capsule (EUA) TAKE 4 CAPSULES BY MOUTH EVERY 12 HOURS FOR 5 DAYS 02/11 completed Not Available Not Available Not Available Vitals Date Recorded Body mass index (BMI) Body height Body weight Provider Name and Address Organization Details Last Updated DateTime 12/30/2022 39.7 kg/m2 180.34 cm 378502.83 g Not Available [facility] 12/30/2022 13:51:51 Date Recorded Body height Body mass index (BMI) Body weight Provider Name and Address Organization Details Last Updated DateTime 02/11/2023 180.34 cm 25.1 kg/m2 34959.63 g Jaimie Eatondeisy [facility] [employer] [facility] 02/11/2023 09:20:14 Date Recorded Body height Body mass index (BMI) Body weight Provider Name and Address Organization Details Last Updated DateTime 03/04/2023 180.34 cm 39.7 kg/m2 249024.83 g Jeffreyesmemaria EatonStef, [facility] [employer] [facility] [employer] 03/04/2023 08:55:37 Date Recorded Body height Body mass index (BMI) Body weight Provider Name and Address Organization Details Last Updated DateTime 07/08/2023 180.34 cm 39.7 kg/m2 523839.83 g Samantha Guillermobranden [facility] [employer] [facility] [employer] 07/08/2023 09:39:05 Date Recorded Body height Body mass index (BMI) Body weight Provider Name and Address Organization Details Last Updated DateTime 10/14/2023 180.34 cm 39.1 kg/m2 800495.86 g Samantha Frank [facility] [employer] [facility] [employer] 10/14/2023 14:08:11 Social History Question Answer Notes LastModified by Organizat ion Details LastModified Time Tobacco Smoking Status Former Smoker Jadyn mitchell, [place] [employer] [facility] [employer] 03/04/2023 08:54:32 What Is Your Level Of Alcohol Consumption? Occasional [email or web address] Information not available 02/11/2023 Sex: Unknown Functional Status None recorded. Mental Status None recorded. Family History Relationship Description Onset Age of this Age Resolved Age Notes LastModified by Organization Details LastModified Time Father Family history of malignant neoplasm [email or web address] Not available 10/14 14:06:34 Father History of hypertension [email or web address] Not available 14:06:34 Father Kidney disease [email or web address] Not available 2022 09:23:18 Unspecified Relation Heart disease [id number] Not available 12/30/2022 13:51:44 Unspecified Relation Diabetes mellitus [id number] Not available 12/30/2022 13:51:44 Mother History of hypertension [email or web address] Not available 14:06:34 Medical History Condition Response BLINDNESS N KIDNEY STONES N MRSA N CARPAL TUNNEL SYNDROME N LUNG DISEASE/DISORDER N HISTORY OF DRUG ABUSE N RADIATION / CHEMOTHERAPY N COPD N SPORTS INJURY N ANKLE PAIN N BLOOD DISEASES N SCHIZOPHRENIA N SHINGLES N BOWEL PROBLEMS N SHOULDER PAIN N DEPRESSION (INCLUDING POST ) N STROKE/TIA N KNEE PAIN N ULCERS N BENIGN PROSTATIC HYPERPLASIA N OBESITY N GERD/NAUSEA N ANEURYSM N URINARY/BLADDER/KIDNEY PROBLEMS Y CORONARY ARTERY DISEASE (CAD) Y ADDICTION CONCERNS N USE OF BLOOD THINNERS Y SKIN PROBLEMS Y EMPHYSEMA N MUSCLE,JOINT OR BONE PROBLEMS N DVT N STOMACH ULCERS N BLOOD CLOTS N USE OF NSAIDS N CONCUSSION OR SPINAL TRAUMA N NEUROPATHY N AIDS/HIV N FRACTURES N ELBOW PAIN N HYPERTENSION N TOURETTE'S N ANXIETY DISORDER N Metal allergy N BLOOD TRANSFUSION N ANEMIA/BLOOD DISORDER N BIPOLAR DISORDER N BRONCHITIS N OSTEOARTHRITIS N TUBERCULOSIS N FOOT PROBLEM N HEART VALVE DISORDERS N ALLERGIES/HAYFEVER N SOFT TISSUE INJURY N INFECTIOUS DISEASE N HEART ARRHYTHMIA N INSOMNIA N RHEUMATOID ARTHRITIS N HIGH CHOLESTEROL / HYPERLIPIDEMIA N EDEMA N CHRONIC PAIN SYNDROME N CAROTID BLOCKAGE N BACK / NECK PROBLEMS N HAVE YOU BEEN HOSPITALIZED OR SEEN IN [facility] IN THE PAST YEAR ? N BURSITIS N HERNIATED DISC N DIALYSIS N [place] N OSTEOPOROSIS N ARTHRITIS Y NO SIGNIFICANT PAST MEDICAL HISTORY N PERIPHERAL NEUROPATHY N DIABETES, TYPE Y HEARTBURN / REFLUX N HEPATITIS / LIVER DISEASE N GOUT Y SLEEP DISORDER N ALZHEIMER'S DISEASE N HERPES N SEIZURES/EPILEPSY N HEADACHES/MIGRAINES N VASCULAR DISEASE N HIP PAIN N Blood Disorder N DIZZINESS N HEAD TRAUMA OR INJURY N HEART DISEASE/HEART PROBLEMS N MULTIPLE SCLEROSIS N CARDIAC ARRHYTHMIA N CANCER: SPECIFY N ANESTHESIA COMPLICATIONS N ATRIAL FIBRILLATION N AUTOIMMUNE DISEASE N Past Encounters Encounter ID Performer Location Encounter Start Date Encounter Closed Date Diagnosis/Indication Diagnosis SNOMED-CT Code Diagnosis ICD10 Code Diagnosis Note [id number] [facility] [address] [place] [address] 03/25/2021 00:00:00 03/25/2021 16:09:26 [id number] [facility] [address] [place] [address] 09/08/2021 00:00:00 09/08/2021 10:17:23 [id number] [facility] [address] [place] [address] 11/25/2021 00:00:00 11/25/2021 16:06:41 [id number] [facility] [address] [place] [address] 01/07/2022 00:00:00 01/07/2022 14:47:48 [id number] [facility] [address] [place] [address] 04/28/2022 00:00:00 04/28/2022 17:04:01 [id number] [facility] [address] [place] [address] 08/11/2022 00:00:00 08/11/2022 15:35:35 [id number] [facility] [address] [place] [address] 11/30/2022 00:00:00 11/30/2022 09:53:23 [id number] JOANNE Holbrook [facility] 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 [place] [address] 07/08/2023 09:36:52 07/08/2023 10:00:07 Pain of bilateral knee joints [id number] 95848 M25.561 M25.562 Osteoarthritis 518623404 M17.0 [id number] JOANNE Holbrook [facility] [address] [place] [address] 10/14/2023 14:05:54 10/14/2023 14:48:05 Pain of bilateral knee joints [id number] 50718 M25.561 M25.562 Osteoarthritis 402226650 M17.0 Health Concerns Section Related Observation LastModified by Organization Detai ls LastModified Time None Recorded Concern Status LastModified by Organization Details LastModified Time None Recorded Advance Directives Directive None Recorded Payers Encounter Date Sequence Insurance Name Policy Number Policy Hernandez Covered Member ID Hernandez Member ID Guarantor Name 02/11/2023 1 [employer] (MEDICARE REPLACEMENT PPO) [id number] 1 Reynold P Rydgig [id number] Reynold P Rydgig 03/04/2023 1 [employer] (MEDICARE REPLACEMENT PPO) [id number] 1 Reynold P Rydgig [id number] Reynold P Rydgig 07/08/2023 1 [employer] (MEDICARE REPLACEMENT PPO) [id number] Reynold P Rydgig [id number] Reynold P Rydgig 10/14/2023 1 [employer] (MEDICARE REPLACEMENT PPO) -[id number] 1 Reynold P Rydgig [id number] Reynold P Rydgig Notes Date Note Type Note Provider Name and Address Organization Details Recorded Time 02/11/2023 text/html Patient returns with left 4th trigger finger. He has locking catching with flexion extension it has been about a year since he has had a shot of cortisone To treat different finger on the right hand which helped significantly.. He states he was doing very well with no symptoms whatsoever after his last injection. Recently the left 4th finger has started catching he has a lot of pain with flexion extension when he goes through the arc of motion you can see it pop back and forth he is very tender over the A1 teddy site. Denies any erythema heat effusion or signs of infection no other neurovascular deficits no other pain throughout the finger. He comes in today for left 4th trigger finger as described.A new past medical history sheet was reviewed and signed on the intake sheet today's date drug allergies current medications family social history previous surgical history 10 point review of systems was reviewed and discussed in detail today with the patient. JOANNE Holbrook [address], [place], [address], [employer] 02/11/2023 09:52:32 03/04/2023 text/html Patient returns complaining of bilateral knee pain right worse left. He has chronic advanced primary osteoarthritis with significant narrowing in the medial and patellofemoral compartments which are [id number]. He gets by with cortisone injections it has been about 3 months since his last injections he would like to repeat these today they do work well for him allow to get out by golf etc.. Today denies any new symptoms no new trauma or injury to either knee. JOANNE Holbrook [address], [place], [address], [employer] 03/04/2023 09:09:40 07/08/2023 text/html Patient returns requesting bilateral knee injections. He comes in every few months it has been 4 months since his last injections. They gave him good relief. He has advanced chronic primary osteoarthritis with significant narrowing in the medial and patellofemoral compartments which are [id number]. He is not interested in total knee arthroplasty at this time we have talked about it previously. Denies any new trauma injury no erythema heat effusion or signs of infection in either knee. JOANNE Holbrook [address], [place], [address], [facility] [employer] [facility] 07/08/2023 09:55:23 10/14/2023 text/html Patient returns for bilateral knee injections he has severe primary osteoarthritis in the patellofemoral articulations which are [id number]-[id number] bilaterally and also in the right medial compartment left knee still has a sliver of joint space remaining. These x-rays were done in July of this year. He has good relief from cortisone injections it lasts at least a couple of months. It has been a little over 3 months since his last injections he would like to have new ones today. Denies any new trauma or injury no erythema effusion or signs of infection. He is not interested in total knee arthroplasty at this time. JOANNE Holbrook [address], [place], [address], [facility] [employer] [facility] [employer] [facility] 10/14/2023 14:36:49
--- OUTSIDE RECORDS SUMMARY | 2024-12-11 10:45 | XMS_ITS | Patient Health Summary ---
Author Organization [facility] Address [address] [place] [address] Care Team Providers Care Director Sanitation Bureau Name Role Phone Roberto Saleem MD Primary Care Provider [phone] Note from [facility],non-owned Affiliates and Associated Physician Practices is amultiple site organization consisting of ambulatory clinics and hospital sitesin [place], [place], [place] and [place]. This disclosure is being madepursuant to the Care Everywhere program and may not contain all information available regarding this patient. Last updated 18.[facility] Social History Tobacco Use Types Packs/Day Years Used Date Smoking Tobacco: Never Assessed Sex and Gender Information Value Date Recorded Sex Assigned at Not on file Gender Identity Not on file Sexual Orientation Not on file Last Filed Vital Signs Vital Sign Reading Time Taken Comments Blood Pressure 152/80 11/09/2013 9:56 AM COVER INSPECTOR Pulse 61 11/09/2013 9:56 AM COVER INSPECTOR Temperature - - Respiratory Rate 18 11/09/2013 9:56 AM COVER INSPECTOR Oxygen Saturation - - Inhaled Oxygen Concentration - - Weight 142.9 kg (315 lb) 11/09/2013 9:56 AM COVER INSPECTOR Height - - Body Mass Index - [...] CT HEAD WO CONTRAST (11/09/2013 9:48 AM COVER INSPECTOR) Only the most recent of12 resultswithin the time period is included. Anatomical Region Laterality Modality Head Other Impressions 11/09/2013 10:42 AM COVER INSPECTOR IMPRESSION: 1. Interval resolution of bilateral cerebral convexity subdural hematomas. This report was approved by Rossy Clay M.D. on 11/09/2013 10:41 AM . I, Dr. SHABBIR MARRUFO M.D. have personally reviewed and interpreted this examination/study. This report was electronically signed by SHABBIR MARRUFO M.D. on 11/09/2013 10:42 AM . Narrative 11/09/2013 10:42 AM COVER INSPECTOR EXAMINATION: Computed tomography (CT) of the head [...] indicative of chronic small vessel ischemic disease. The visualized portions of the orbits and mastoids [...] * (ABNORMAL) GLUCOSE ACCUCHECK (12/03/2012 11:53 AM COVER INSPECTOR) Only the most recent of24 resultswithin the time period is included. Glucose, Fingerstick 200(H) 70 - 110 MG/DL [facility] Comment:PERFORMED BY: FLORENCIA ZAVALA 12/03/2012 11:5 3 AM COVER INSPECTOR 12/03/2012 12:16 PM COVER INSPECTOR Cassandra Purdy MD LAB - CHEMISTRY OR DERABLES Performing Organization Address [facility] [place]/[facility] Co de Phone Number [address] [phone] * CULTURE AEROBIC (12/01/2012 10:45 AM COVER INSPECTOR) Organism ID [facility] Culture Routine NOT DONE [facility] Brain (Unspecified) 12/01/2012 10:45 AM COVER INSPECTOR 12/01/2012 10:51 AM COVER INSPECTOR Narrative [facility] - 12/01/2012 4:41 PM COVER INSPECTOR Subdural drain tip Specimen Type->Brain Cassandra Purdy MD LAB - MICROBIOLOGY ORDERABLES Performing Organization Address City/[facility]/ZIP Co de Phone Number [address] [phone] * CULTURE ANAEROBE (12/01/2012 10:45 AM COVER INSPECTOR) Organism ID [facility] Culture Anaerobic NOT DONE [facility] Brain (Unspecified) 12/01/2012 10:45 AM COVER INSPECTOR 12/01/2012 10:51 AM COVER INSPECTOR Narrative [facility] - 12/01/2012 4:41 PM COVER INSPECTOR Subdural drain Specimen Type->Brain Cassandra Purdy MD LAB - MICROBIOLOGY ORDERABLES Performing Organization Address City/[facility]/ZIP Co de Phone Number [address] [phone] * CULTURE VENTRICULAR CATHETER TIP (12/01/2012 10:33 AM COVER INSPECTOR) Pathologist [facility] Culture Ventricular Catheter NO GROWTH AFTER ONE WEEK. [facility] Ventricular Catheter 12/01/2012 10:33 AM COVER INSPECTOR 12/01/2012 4:27 PM COVER INSPECTOR Cassandra Purdy MD LAB - MICROBIOLOGY ORDERABLES Performing Organization Address [facility] [place]/[facility] Co de Phone Number [address] [phone] * (ABNORMAL) CBC W AUTO DIFFERENTIAL (12/01/2012 12:00 AM COVER INSPECTOR) Only the most recent of6 resultswithin the time period is included. WBC 4.2 3.5 - 10.5 10^3/uL [facility] RBC 2.90(L) 4.30 - 5.70 10^6/uL [facility] Hemoglobin 8.5(L) 13.5 - 17.5 g/dL [facility] Hematocrit 26.6(L) 39.0 - 50.0 % [facility] MCV 91.7 81.0 - 97.0 FL [facility] MCH 29.3 28.0 - 34.0 PG [facility] MCHC 32.0 32.0 - 36.0 G/DL [facility] Platelet 208 150 - 400 10^3/uL [facility] RDW 14.5 11.2 - 14.8 % [facility] RDW-SD 48.1 36 - 50 FL [facility] MPV 8.6(L) 9.3 - 12.8 FL [facility] Neutrophils % 58.7 35.0 - 70.0 % [facility] Lymphocytes % 24.6 19.7 - 55.1 % [facility] Monocytes % 12.9 3 - 15 % [facility] Eosinophils % 3.1 0.0 - 6.0 % [facility] Basophils % 0.7 0.0 - 1.5 % [facility] Neutrophils Absolute 2.5 1.7 - 7.0 10^3/uL [facility] Lymphocyte Absolute 1.0 0.8 - 2.9 10^3/uL [facility] Monocytes Absolute 0.5 0.14 - 0.66 10^3/uL [facility] Eosinophils Absolute 0.13 0.00 - 0.22 10^3/uL [facility] Basophils Absolute 0.03 0.02 - 0.06 10^3/uL [facility] Differential Type AUTO DIFFERENTIAL [facility] Venous blood specimen (specimen) 12/01/2012 12/01/2012 12:31 AM COVER INSPECTOR Cassandra Purdy MD LAB - HEMATOLOGY O RDERABLES [address] [phone] * (ABNORMAL) BASIC METABOLIC PANEL (CALCIUM TOTAL) (12/01/2012 12:00 AM COVER INSPECTOR) Only the most recent of7 resultswithin the time period is included. BUN 9 7 - 26 mg/dL [facility] Creatinine 0.8 0.6 - 1.2 mg/dL [facility] eGFR by MDRD > 60 ML/MIN [facility] Comment: Chronic kidney disease: <60 ml/min Kidney failure: <15 ml/min Based on BSA of 1.73m2. Sodium 140 136 - 145 mmol/L [facility] Potassium 3.9 3.5 - 4.5 mmol/L [facility] Chloride 106 98 - 107 mmol/L [facility] CO2 18(L) 22 - 29 mmol/L [facility] Glucose 104 70 - 115 mg/dL [facility] Calcium 8.6 8.4 - 10.2 mg/dL [facility] Anion Gap 20(H) 8 - 18 [facility] BUN/Creatinine Ratio 11 7 - 23 [facility] Osmolality Calculation 273 270 - 300 mOsm/kg [facility] Venous blood specimen (specimen) 12/01/2012 12/01/2012 12:31 AM COVER INSPECTOR Cassandra Purdy MD LAB - [place] [address], [facility] [phone] * XR SKULL 3VW OR LESS (11/29/2012 9:21 PM COVER INSPECTOR) Anatomical Region Laterality Modality Head Other Impressions 11/30/2012 8:25 AM COVER INSPECTOR Impression: 1. Left sided intracranial catheter terminates in the left parieto-occipital region and exits the skull via a left parietal arcadio hole. Adjacent soft tissue swelling. Report dictated by Adan De La Torre M.D. (administrative resident). I, Dr. AVERY TRUJILLO M.D. have personally reviewed and interpreted this examination/study. This report was electronically signed by AVERY TRUJILLO M.D. on 11/30/2012 8:25 AM . Narrative 11/30/2012 8:25 AM COVER INSPECTOR Exam: PX SKULL < 4 VW Date: 11/29/2012 9:00 PM History: eval SDD placement Comparison: No prior study is available for comparison. Findings: The left sided intracranial catheter terminates in the left parieto-occipital region. It exits the skull via a left parietal arcadio hole. Adjacent soft tissue swelling is seen. Postsurgical changes consistent with prior right-sided aracdio holes are visible. Pneumocephalus is present. Tubing [...] dictated by Adan De La Torre M.D. (administrative resident). Dr. AVERY Cassidy M.D. have personally reviewed and interpreted thisexamination/study. This report was electronically signed by AVERY TRUJILLO M.D. on11/30/2012 8:25 AM . Cassandra Purdy MD DIAGNOSTIC IMAGING ORDERABLES * XR CHEST 1VW PORTABLE (11/29/2012 7:22 PM COVER INSPECTOR) Only the most recent of2 resultswithin the time period is included. Anatomical Region Laterality Modality Chest Other Impressions 11/30/2012 8:27 AM COVER INSPECTOR IMPRESSION: Resolved right upper lobe atelectasis. Report dictated by Dr. AVERY Franklin M.D., M.D. have personally reviewed and interpreted this examination/study. This report was electronically signed by AVERY TRUJILLO M.D. on 11/30/2012 8:27 AM . Narrative 11/30/2012 8:27 AM COVER INSPECTOR EXAMINATION: Portable chest, one view HISTORY: Preop [...] ORDERABLES * PTT [facility] (11/29/2012 2:40 PM COVER INSPECTOR) Only the most recent of2 resultswithin the time period is included. APTT 29.9 23.0 - 38.4 SECONDS [facility] Comment: SUGGESTED THERAPEUTIC RANGE FOR FULL DOSE I.V. HEPARIN THERAPY FOR VENOUS THROMBOEMBOLISM IS 66.0 - 91.0 SECONDS, WITH AN APTT RATIO OF 2.1 - 3.0. APTT Ratio 0.98 [facility] Plasma specimen (specimen) BLOOD SPECIMEN / Unknown 11/29/2012 2:40 PM COVER INSPECTOR 11/29/2012 2:53 PM COVER INSPECTOR Narrative [facility] - 11/29/2012 3:18 PM COVER INSPECTOR Is patient on Heparin, Argatroban or Dabigatran?->N unknown if on lovenox Cassandra Purdy MD LAB - COAGULATION ORDERABLES Performing Organization Address City/State/[facility] Co de Phone Number [address] [phone] * PT-INR [facility] (11/29/2012 2:40 PM COVER INSPECTOR) Only the most recent of2 resultswithin the time period is included. PT 14.5 12.1 - 14.8 SECONDS [facility] INR 1.1 [facility] Comment: SUGGESTED THERAPEUTIC RANGE FOR LOW-INTENSITY COUMADIN THERAPY FOR VENOUS THROMBOEMBOLISM IS INR 2.0-3.0. FOR HIGH RISK PATIENTS (MITRAL VALVE PROSTHESIS, ATRIAL FIBRILLATION, HISTORY OF TIA/STROKE), SUGGESTED THERAPEUTIC RANGE IS INR 2.5-3.5. Plasma specimen (specimen) BLOOD SPECIMEN / Unknown 11/29/2012 2:40 PM COVER INSPECTOR 11/29/2012 2:53 PM COVER INSPECTOR Narrative [facility] - 11/29/2012 3:18 PM COVER INSPECTOR Is patient on Heparin, Argatroban or Dabigatran?->N unknown if on lovenox Cassandra Purdy MD LAB - COAGULATION ORDERABLES [address] [phone] * URINALYSIS DIPSTICK AUTO (11/29/2012 2:40 PM COVER INSPECTOR) Color UA YELLOW STRW,YELLOW [facility] Clarity UA CLEAR CLEAR [facility] Specific [place] Urine 1.009 1.001 - 1.030 [facility] pH UA 7.5 5.0 - 8.0 [facility] Protein UA NEGATIVE <20 mg/dL [facility] Glucose UA NEGATIVE NEGATIVE mg/dL [facility] Ketones NEGATIVE NEGATIVE mg/dL [facility] Bilirubin UA NEGATIVE NEGATIVE mg/dL [facility] Blood UA NEGATIVE NEGATIVE [facility] Nitrite UA NEGATIVE NEGATIVE [facility] Leukocyte Esterase NEGATIVE NEGATIVE [facility] Urobilinogen UA < 2.0 <2.0 mg/dL [facility] Urine specimen (specimen) URINE SPECIMEN COLLECTION, CATHETERIZED / Unknown 11/29/2012 2:40 PM COVER INSPECTOR 11/29/2012 2:50 PM COVER INSPECTOR Cassandra Purdy MD LAB - [place] [address], [facility] [phone] * TYPE + SCREEN PANEL (11/29/2012 2:40 PM COVER INSPECTOR) Interpretation ABO/Rh Patient A POS [facility] Antibody Screen NEGATIVE [facility] 11/29/2012 2:40 PM COVER INSPECTOR 11/29/2012 4:31 PM COVER INSPECTOR Cassandra uPrdy MD LAB - BLOOD BANK O RDERABLES [facility] [address] [phone] * PHOSPHORUS BLOOD (11/16/2012 5:00 AM COVER INSPECTOR) Only the most recent of3 resultswithin the time period is included. Phosphorus 3.1 2.3 - 4.7 mg/dL [facility] Serum 11/16/2012 5:00 AM COVER INSPECTOR 11/16/2012 5:18 AM COVER INSPECTOR Cassandra Purdy MD LAB - CHEMISTRY OR DERABLES [address] [phone] * MAGNESIUM BLOOD (11/16/2012 5:00 AM COVER INSPECTOR) Only the most recent of3 resultswithin the time period is included. Magnesium 1.8 1.6 - 2.6 mg/dL [facility] Serum 11/16/2012 5:00 AM COVER INSPECTOR 11/16/2012 5:18 AM COVER INSPECTOR Cassandra Purdy MD LAB - CHEMISTRY OR DERABLES [address] [phone] * (ABNORMAL) BLOOD GASES ART (11/14/2012 12:10 AM COVER INSPECTOR) pH Arterial 7.44 7.35 - 7.45 [facility] pCO2 Arterial 37 35 - 45 mmHg [facility] pO2 Arterial 132(H) 71 - 95 mmHg [facility] HCO3 Arterial 24.7 22 - 26 mEq/L [facility] TCO2 Arterial 25.8 25 - 29 mEq/L [facility] Base Excess Arterial 1.1 -2 - 2 [facility] Hemoglobin Arterial 8.2(L) 13.5 - 17.5 g/dL [facility] Oxyhemoglobin Arterial 95.3 95.0 - 100.0 % [facility] Carboxyhemoglobin 2.0 0 - 3 % [facility] Methemoglobin 1.7 0 - 2.0 % [facility] FI O2 Arterial 21 [facility] Arterial blood specimen (specimen) BLOOD SPECIMEN / Unknown 11/14/2012 12:10 AM COVER INSPECTOR 11/14/2012 12:28 AM COVER INSPECTOR Cassandra Purdy MD LAB - BLOOD GASES ORDERABLES [facility] [address] [place] [address] * XR WRIST 3+VW LEFT ROUTINE (12/25/2010 11:44 AM COVER INSPECTOR) Anatomical Region Laterality Modality Wrist / Hand Radiographic Germaine ging 12/25/2010 11:5 2 AM COVER INSPECTOR Impressions 12/25/2010 11:52 AM COVER INSPECTOR Mild osteoarthritis. Questionable distal radial fracture seen on the oblique image only. Narrative 12/25/2010 11:52 AM COVER INSPECTOR Left wrist: HISTORY: Pain. Three views of [...] seen on the oblique image only. Geronimo Cannon MD DIAGNOSTIC IMAGING O [facility] Care Teams Director Sanitation Bureau Relationship Specialty Start Date End Date Roberto Saleem MD [address] [place] [phone] PCP - General 12/25/10
--- OUTSIDE RECORDS SUMMARY | 2024-12-11 10:45 | XMS_ITS | Clinical Summary ---
Author Organization [facility] Address [address] [place] [address] Care Team Providers Care Shirt Marker Name Role Phone Nomi Moore MD PhD Unavailable [phone] Roberto Saleem MD Primary Care Provider [phone] Spencer Fulton MD Unavailable [phone] Allergies Active Allergy Reactions Criticality Noted Date Comments Lisinopril Cough Low 10/21/2021 Morphine Itching Medium 10/21/2021 Oxycodone Mental status changes,Delusions Medium 04/2024 Medications hydroCHLOROthiazid e (HYDRODIURIL) 25 mg tablet Take 1 tablet (25 mg total) by mouth every morning Active levothyroxine (SYNTHROID) 100 mcg tablet Take 1 tablet (100 mcg total) by mouth automat car attendant before breakfast Active carvedilol (COREG) 25 mg [...] tablet by mouth every morning Active omega 2-rud-ppf-fish oil 1,000 mg (120 mg-180 mg) capsule [...] 09/27/2018 Assessment & Plan (10/20/2022 1:03 PM TRIM MACHINE OPERATOR): Patient seen today for 1 year routine [...] artery disease 11/01/2004 Overview (10/31/2019): stent placed [facility] by Dr. Tompkins Encounters Date Type Department Care Team Description 10/06/2024 10:15 AM TRIM MACHINE OPERATOR - 10/06/2024 1:00 PM TRIM MACHINE OPERATOR Surgery [facility] Operating Room [facility] [place] [address] Spencer Fulton MD Left Total Knee Arthroplasty 10/06/2024 10:15 AM TRIM MACHINE OPERATOR Anesthesia Event [facility] Operating Room [address] [place] [phone] Josephine Ramirez MD [place], Justin Kyle, CRNA 10/06/2024 7:17 AM TRIM MACHINE OPERATOR - 10/07/2024 11:00 AM TRIM MACHINE OPERATOR Hospital Encounter [address] [address] Spencer Fulton MD Arthritis of left knee (Primary Dx); Primary osteoarthritis of left knee; S/P total knee arthroplasty, left Discharge Disposition: Discharge to home or self care from Last 3 Months Immunizations Name Administration Dates Next Due Influenza, [...] Pneumococcal, Unspecified 10/01/2009 ZOSTER Recombinant 08/17/2019,07/11/2019, 019 Surgical History Surgery Date Site/Laterality Comments ENDOSCOPIC AORTIC REPAIR 06/25/2011 HERNIA REPAIR ventral TRANSURETHRAL RESECTION OF PROSTATE 11/23/2018, 02/10/22 TOTAL HIP ARTHROPLASTY 11/01/2018 - 10/31/2019 Left TOTAL HIP ARTHROPLASTY 11/01/2009 - 10/31/2010 Right Medical History Medical History Date Comments DM (diabetes mellitus) (HCC) HTN (hypertension) Thyroid disease Arthritis TGA (transient global amnesia) Subdural hematoma (HCC) 2012 Benign prostatic hyperplasia Coronary artery disease [address] a[address] Cobb's by Dr. Tompkins Cataract Hyperlipidemia Gout Sleep apnea Osteoarthritis of right knee TIA (transient ischemic attack) Hypothyroid Obesity (BMI 30-39.9) Bladder cancer (HCC) Primary osteoarthritis of left knee Family History Medical History Relation Name Comments Diabetes Father Heart disease Father Heart disease Mother Cancer Other Diabetes Other Hypertension Other Relation Name Status Comments Father Mother Other Social History Tobacco Use Types Packs/Day Years [...] on file Legal Sex Male 12:37 PM TRIM MACHINE OPERATOR Gender Identity Male 02/02/2022 11:05 AM CDT Sexual Orientation Straight 02/02/2022 11 :05 AM CDT Obstetrics History Last Filed Vital Signs Vital Sign Reading Time Taken Comments Blood Pressure 137/65 10/07/2024 8:35 AM TRIM MACHINE OPERATOR Pulse 84 10/07/2024 8:35 AM TRIM MACHINE OPERATOR Temperature 36.6 C (97.9 F) 10/07/2024 8:35 AM TRIM MACHINE OPERATOR Respiratory Rate 18 10/07/2024 8:35 AM TRIM MACHINE OPERATOR Oxygen Saturation 98% 10/07/2024 8:35 AM TRIM MACHINE OPERATOR Inhaled Oxygen Concentration - - Weight 124.7 kg (274 lb 14.6 oz) 10/06/2024 8:55 AM TRIM MACHINE OPERATOR Height 180.3 cm (5' 10.98 ) 10/06/2024 8:[address] Body Mass Index 38.36 10/06/2024 8:55 AM TRIM MACHINE OPERATOR Plan of Treatment Health Maintenance Due Date Last Done Comments Albumin Creatinine Ratio, Urine 1942 Depression Screening 1942 Dilated Eye Exam 1942 Foot Exam 1942 DTaP/Tdap/Td Vaccine (1 - Tdap) 1953 Hepatitis B Screening 1960 Well Visit 65+ 2007 Lipid Panel 11/01/2020 11/01/2019, 10/31/2019 Covid-19 Vaccine (4 - 2023-2 5 season) 2024 07/30/2021, 01/09/2021, 12/19/2020 Influenza Vaccine (#1) 2024 , 07/12/2021, 06/27/2020, Additional history exists Hemoglobin A1C 02/22/2025 08/24/2024, 10/01, 10/31/2019 eGFR 08/24/2025 08/24/2024, 12/31, 01/10/2024, Additional history exists Fall Risk Assessment 10/07/2025 10/07/2024 Zoster Vaccine Completed 08/17/2019, 07/02, 05/03/2019 Pneumococcal vaccine 65+ Completed 023, 08/05/2018, 10/01/2009 Medical Devices Implanted Type Area Escort Blind Device Identifier Shelf Expiration Date Model / Serial / Lot Total Hip Bilatera l: Hip [employer] Triathlon Tritanium Knee 7 Baseplate Tibial 5536-B-700 - [id number] Implanted:Qty: 1 on 01/20/2024 by Spencer Fulton MD at [facility] Right: Knee [employer] [id number] 09/27/2028 5536-B-70 0 / / [id number] [employer] Triathlon Cruciate Retain Bead Knee Right 7 Component Femoral Pa 5517-F-702 - [id number] Implanted:Qty: 1 on 01/20/2024 by Spencer Fulton MD at [facility] Right: Knee [employer] [id number] 11/04/2027 5517-F-70 2 / / [id number] [employer] Tritanium 38mm 11mm Asymmetric Knee Component Patellar Metal 5552-L-381 - [id number] Implanted:Qty: 1 on 01/20/2024 by Spencer Fulton MD at [facility] Right: Knee [employer] [id number] 12/11/2025 5552-L-38 1 / / [id number] [employer] Insert Tibial Triathlon 7 H9mm Knee Bearing Condylar Stabilize Sterile 6532-U-405-E - [id number] Implanted:Qty: 1 on 01/20/2024 by Spencer Fulton MD at [facility] Right: Knee [employer] [id number] 08/14/2028 5531-G-70 9-E / / [id number] [employer] Tritanium 38mm 11mm Asymmetric Knee Component Patellar Metal 5552-L-381 - [id number] Implanted:Qty: 1 on 10/06/2024 by Spencer Fulton MD at [facility] Left: Knee [employer] [id number] 07/16/2029 5552-L-38 1 / / [id number] [employer] Triathlon Cruciate Retain Bead Knee Left 8 Component Femoral Pa 5517-F-801 - [id number] Implanted:Qty: 1 on 10/06/2024 by Spencer Fulton MD at [facility] Left: Knee [employer] [id number] 07/15/2027 5517-F-80 1 / / [id number] [employer] Insert Tibial Triathlon 7 H10mm Knee Bearing Condylar Stabilize Sterile 6579-A-753-E - [id number] Implanted:Qty: 1 on 10/06/2024 by Spencer Fulton MD at [facility] Left: Knee [employer] [id number] 05/18/2029 5531-G-71 0-E / / [id number] [employer] Triathlon Tritanium Knee 7 Baseplate Tibial 5536-B-700 - [id number] Implanted:Qty: 1 on 10/06/2024 by Spencer Fulton MD at [facility] Left: Knee [employer] [id number] 07/27/2029 5536-B-70 0 / / [id number] Procedures Procedure Name Priority Date/Time Associated Diagnosis Comments POCT GLUCOSE DEVICE Routine 10/07/2024 6 :36 AM TRIM MACHINE OPERATOR POCT GLUCOSE DEVICE Routine 10/06/2024 7 :11 PM TRIM MACHINE OPERATOR POCT GLUCOSE DEVICE Routine 10/06/2024 7 :09 PM TRIM MACHINE OPERATOR POCT GLUCOSE DEVICE Routine 10/06/2024 1 :15 PM TRIM MACHINE OPERATOR PA AN PROCEDURE PLACEHOLDER Routine 10/06/2024 10:48 AM TRIM MACHINE OPERATOR PA AN ELECTIVE ENDOTRACHEAL AIRWAY Routine 10/06/2024 10:48 AM TRIM MACHINE OPERATOR ARTHROPLASTY TOTAL KNEE 10/06/2024 10:17 AM TRIM MACHINE OPERATOR Primary osteoarthritis of left knee PA AN PROCEDURE PLACEHOLDER Routine 10/06/2024 9:43 AM TRIM MACHINE OPERATOR POCT GLUCOSE DEVICE Routine 10/06/2024 8 :37 AM TRIM MACHINE OPERATOR EGFR Routine 08/24/2024 11:09 AM CDT Preop testing HEMOGLOBIN A1C Routine 08/24/2024 11:09 AM CDT Preop testing LIPID PANEL Routine 11/01/2019 4:44 AM TRIM MACHINE OPERATOR from Last 3 Months or Most Recently Relevant to Health Maintenance Results * POCT glucose (10/07/2024 6:36 AM TRIM MACHINE OPERATOR) [facility] Signature Glucose, POC 174 70 - 199 mg/dL Comment: For Glucose values <35 mg/dl when Hematocrit is >60 mg/dl,the test may not accurately detect significant hypoglycemia,and testing in the Laboratory should be considered if clinically indicated. Blood 10/07/2024 6:36 AM TRIM MACHINE OPERATOR 10/07/2024 6:36 AM TRIM MACHINE OPERATOR Spencer Fulton MD LAB POCT ORDERABLES - DEVICE Final Result Performing Organization Address [facility] Co de Phone Number [facility] [address] [facility] [employer] [address] * POCT glucose (10/06/2024 7:11 PM TRIM MACHINE OPERATOR) Glucose, POC 192 70 - 199 mg/dL Comment: For Glucose values <35 mg/dl when Hematocrit is >60 mg/dl,the test may not accurately detect significant hypoglycemia,and testing in the Laboratory should be considered if clinically indicated. Blood 10/06/2024 7:11 PM TRIM MACHINE OPERATOR 10/06/2024 7:11 PM TRIM MACHINE OPERATOR Spencer Fulton MD LAB POCT ORDERABLES - DEVICE Final Result Performing Organization Address [facility] Co de Phone Number [facility] [address] [facility] [employer] [address] * (ABNORMAL) POCT glucose (10/06/2024 7:09 PM TRIM MACHINE OPERATOR) Glucose, POC 302(H) 70 - 199 mg/dL Comment: For Glucose values <35 mg/dl when Hematocrit is >60 mg/dl,the test may not accurately detect significant hypoglycemia,and testing in the Laboratory should be considered if clinically indicated. Blood 10/06/2024 7:09 PM TRIM MACHINE OPERATOR 10/06/2024 7:09 PM TRIM MACHINE OPERATOR Result [facility] Spencer Fulton MD LAB POCT ORDERABLES - DEVICE Final Result Performing Organization Address [facility] Co de Phone Number [facility] [address] [facility] [place] [address] * POCT glucose (10/06/2024 1:15 PM TRIM MACHINE OPERATOR) Glucose, POC 186 70 - 199 mg/dL Comment: For Glucose values <35 mg/dl when Hematocrit is >60 mg/dl,the test may not accurately detect significant hypoglycemia,and testing in the Laboratory should be considered if clinically indicated. Blood 10/06/2024 1:15 PM TRIM MACHINE OPERATOR 10/06/2024 1:15 PM TRIM MACHINE OPERATOR Spencer Fulton MD LAB POCT ORDERABLES - DEVICE Final Result [facility] [address] Department [place] [address] * PA AN ELECTIVE ENDOTRACHEAL AIRWAY, PA AN PROCEDURE PLACEHOLDER (10/06/2024 10:48 AM TRIM MACHINE OPERATOR) Narrative Demar Vergara CRNA - 10/06/2024 10:48 AM TRIM MACHINE OPERATOR Demar Vergara CRNA 10/06/2024 10:51 AM Airway Patient location: OR Urgency: elective Indications for airway management: airway protection and anesthesia Difficult airway: no Staff: Supervising provider: Josephine Ramirez MD Placed by: SOCIAL WORK PROGRAM COORDINATOR: Demar Vergara CRNA Emergent airway documentation: Risks [...] with: silk tape Number of attempts: 1 Josephine Ramirez MD ANESTHESIA ORDERABLES Fin al Result * PA AN PROCEDURE PLACEHOLDER (10/06/2024 9:43 AM TRIM MACHINE OPERATOR) Narrative Josephine Ramirez MD - 10/06/2024 9:43 AM TRIM MACHINE OPERATOR Josephine Ramirez MD 10/06/2024 9:44 AM Peripheral [...] Result * POCT glucose (10/06/2024 8:37 AM TRIM MACHINE OPERATOR) [facility] Glucose, POC 144 70 - 199 mg/dL Comment: For Glucose values <35 mg/dl when Hematocrit is >60 mg/dl,the test may not accurately detect significant hypoglycemia,and testing in the Laboratory should be considered if clinically indicated. Blood 10/06/2024 8:37 AM TRIM MACHINE OPERATOR 10/06/2024 8:37 AM TRIM MACHINE OPERATOR Spencer Fulton MD LAB POCT ORDERABLES - DEVICE Final Result [facility] [address] Department of Laboratories [place], [place] [id number] * eGFR (08/24/2024 11:09 AM CDT) [facility] eGFR 89 >=60 mL/min/1. 73 m2 Comment: [...] RUBIO LAB BLOOD ORDERABLES Fin al Result [facility] [address] Department [place] [address] * (ABNORMAL) Hemoglobin A1c (08/24/2024 11:09 AM CDT) Hgb A1C 7.0(H) 4.0 - 5.6 % Estimated Average Glucose 154 mg/dL [facility] Comment: The ADA recommends reporting an estimated Average Glucose (eAG) with all Hemoglobin A1c results using the equation derived from a study of 507 normal and diabetic adults. Minority populations were underrepresented and children were not included. (Diabetes Care 31:2874-0297, 2008). The eAG is not equivalent to a fasting glucose. Blood 08/24/2024 11:0 9 AM CDT 08/24/2024 11:09 AM CDT Tabby RUBIO LAB BLOOD ORDERABLES Fin al Result [facility] [address] Department [place] [address] * (ABNORMAL) Lipid panel (11/01/2019 4:44 AM TRIM MACHINE OPERATOR) Cholesterol 127 30 - 199 mg/dL [facility] Comment: Interpretive Data Ages < or = [...] revised on 2018. Triglycerides 250(H) <=149 mg/dL [facility] Comment: Interpretive Data Ages < or = [...] revised on 2018. HDL 33(L) >=40 mg/dL [facility] Comment: Interpretive Data Ages < or = [...] on 2018. LDL, calculated 44 <=129 mg/dL [facility] Comment: Interpretive Data Ages < or = [...] revised on 2018. Non-HDL Cholesterol 94 mg/dL [facility] Comment: Interpretive Data Ages < or = [...] last revised on 2018. Chol/HDL ratio 4 [facility] Blood specimen (specimen) 11/01/2019 4:44 AM TRIM MACHINE OPERATOR 11/01/2019 5:17 AM TRIM MACHINE OPERATOR Kenzie Amaya MD LAB BLOOD ORDERABLES Final Result [facility] [address] [place] [address] from Last 3 Months or Most Recently Relevant to Health Maintenance Insurance MEDICARE [facility] Address: [address] [address] [place] [address] T MEDICARE FORMERLY [facility] MEDICARE MEDICARE [facility] Address: [address] [address] [place] [address] FORMERLY [facility] MEDICARE [facility] MEDICARE Address: [address] [place] [address] Advance Directives For more information, please contact: [phone] Documents on File Type Date Recorded Patient Crank Hand Expl anation ADVANCE DIRECTIVE 01/25/2024 2:02 AM POWER OF MERCHANDISING EXECUTION ASSOCIATE-MEDICAL * Full Code (Latest Code Status on File) Date Activated Date Inactivated Comments 10/06/2024 6:40 PM 10/07/2024 3:38 PM * Full Code Date Activated Date Inactivated Comments 01/20/2024 12:53 PM 01/21/2024 4:25 PM * Full Code Date Activated Date Inactivated Comments 10/31/2019 7:01 PM 11/01/2019 6:11 PM Care Teams Shirt Marker Relationship Specialty Start Date End Date Roberto Saleem MD [address] [place] [address] PCP - General 10/31/19 Nomi Moore MD PhD [address] [facility] [address] [place] [address] Consulting Physician Neurology 11/01/19 [place] [address] [place] [address] Consulting Physician Orthopedic Surgery 10/26/23
--- OUTSIDE RECORDS SUMMARY | 2024-12-11 10:45 | XMS_ITS | Clinical Summary ---
Author Organization [facility] Address [address] [facility] [place] [address] Care Team Providers Care Home Office Claim Specialist Name Role Phone Roberto Saleem MD Primary Care Provider [phone] Source Comments [facility],non-[facility] Affiliates and Associated Physician Practices is amultiple site organization consisting of ambulatory clinics and hospital sitesin [place], [place], [place] and [place]. This disclosure is being madepursuant to the Care Everywhere program and may not contain all information available regarding this patient. Last updated 18.[facility] [place] Social History Tobacco Use Types Packs/Day Years Used Date Smoking Tobacco: Never Assessed Sex and Gender Information Value Date Recorded Sex Assigned at Not on file Gender Identity Not on file Sexual Orientation Not on file Last Filed Vital Signs Vital Sign Reading Time Taken Comments Blood Pressure 152/80 11/09/2013 9:56 AM STEEL SAMPLER Pulse 61 11/09/2013 9:56 AM STEEL SAMPLER Temperature - - Respiratory Rate 18 11/09/2013 9:56 AM STEEL SAMPLER Oxygen Saturation - - Inhaled Oxygen Concentration - - Weight 142.9 kg (315 lb) 11/09/2013 9:56 AM STEEL SAMPLER Height - - Body Mass Index - [...] history exists DEPRESSION SCREENING 11/01/2024 MEDICARE AWV CALENDAR YEAR 2024 HEPATITIS B VACCINE Aged [...] AETNA MEDICARE ADV AETNA MEDICARE ADV HMO/PPO/PFFS [id number] Effective for all dates [address] [place] [address] Medicare -Managed Care SELF PAY NO INSURANCE SELF PAY NO INSURANCE Effective for all dates [place] Self Pay AETNA MEDICARE ADV AETNA MEDICARE ADV HMO/PPO/PFFS [id number] Effective for all dates [address] [place] [address] Medicare -Managed Care SELF PAY NO INSURANCE SELF PAY NO INSURANCE Effective for all dates [place] Self Pay AETNA MEDICARE ADV AETNA MEDICARE ADV HMO/PPO/PFFS [id number] Effective for all dates [address] [place] [address] Medicare -Managed Care SELF PAY NO INSURANCE SELF PAY NO INSURANCE Effective for all dates [place] Self Pay AETNA MEDICARE ADV AETNA MEDICARE ADV HMO/PPO/PFFS [id number] Effective for all dates [address] [place] [address] Medicare -Managed Care SELF PAY NO INSURANCE SELF PAY NO INSURANCE Effective for all dates [facility] [place] Self Pay AETNA MEDICARE ADV AETNA MEDICARE ADV HMO/PPO/PFFS [id number] Effective for all dates [address] [place] [address] Medicare -Managed Care SELF PAY NO INSURANCE SELF PAY NO INSURANCE Effective for all dates [facility] [place] Self Pay AETNA MEDICARE ADV AETNA MEDICARE ADV HMO/PPO/PFFS [id number] Effective for all dates [address] [place] [address] Medicare -Managed Care SELF PAY NO INSURANCE SELF PAY NO INSURANCE Effective for all dates [place] Self Pay U[employer] MANAGED MEDICARE ADV UHC COMPLETE CHOICE MEDICARE ADV PPO [id number] 11/01/2020-Prese [address] [address] [place] [address] Medicare -Managed Care Care Teams Home Office Claim Specialist Relationship Specialty Start Date End Date Roberto Saleem MD [address] [place] [address] PCP - General 12/25/10
--- OUTSIDE RECORDS SUMMARY | 2024-12-11 10:45 | XMS_ITS | Referral Summary ---
Author Organization [facility] Address [address] [place] [address] Care Team Providers Care Multi Site Leasing Consultant Name Role Phone Roberto Saleem MD Primary Care Provider [phone] Source Comments [facility],non-[facility] Affiliates and Associated Physician Practices is amultiple site organization consisting of ambulatory clinics and hospital sitesin [place], [place], [place] and [place]. This disclosure is being madepursuant to the Care Everywhere program and may not contain all information available regarding this patient. Last updated 18.[facility] [employer] Social History Tobacco Use Types Packs/Day Years Used Date Smoking Tobacco: Never Assessed Sex and Gender Information Value Date Recorded Sex Assigned at Not on file Gender Identity Not on file Sexual Orientation Not on file Last Filed Vital Signs Vital Sign Reading Time Taken Comments Blood Pressure 152/80 11/09/2013 9:56 AM ENERGY EFFICIENT SITE MANAGER Pulse 61 11/09/2013 9:56 AM ENERGY EFFICIENT SITE MANAGER Temperature - - Respiratory Rate 18 11/09/2013 9:56 AM ENERGY EFFICIENT SITE MANAGER Oxygen Saturation - - Inhaled Oxygen Concentration - - Weight 142.9 kg (315 lb) 11/09/2013 9:56 AM ENERGY EFFICIENT SITE MANAGER Height - - Body Mass Index - - Plan of Treatment Not on file Insurance Payer Benefit Plan / Group Subscriber ID Effective Dates Phone Address Type AETNA MEDICARE ADV AETNA MEDICARE ADV HMO/PPO/PFFS [id number] Effective for all dates [address] [place] [address] Medicare -Managed Care SELF PAY NO INSURANCE SELF PAY NO INSURANCE Effective for all dates [place] Self Pay AETNA MEDICARE ADV AETNA MEDICARE ADV HMO/PPO/PFFS [id number] Effective for all dates [address] [place] [address] Medicare -Managed Care SELF PAY NO INSURANCE SELF PAY NO INSURANCE Effective for all dates [place] Self Pay AETNA MEDICARE ADV AETNA MEDICARE ADV HMO/PPO/PFFS [id number] Effective for all dates [address] [place] [address] Medicare -Managed Care SELF PAY NO INSURANCE SELF PAY NO INSURANCE Effective for all dates [place] Self Pay AETNA MEDICARE ADV AETNA MEDICARE ADV HMO/PPO/PFFS [id number] Effective for all dates [address] [place] [address] Medicare -Managed Care SELF PAY NO INSURANCE SELF PAY NO INSURANCE Effective for all dates [place] Self Pay AETNA MEDICARE ADV AETNA MEDICARE ADV HMO/PPO/PFFS [id number] Effective for all dates [address] [place] [address] Medicare -Managed Care SELF PAY NO INSURANCE SELF PAY NO INSURANCE Effective for all dates [place] Self Pay AETNA MEDICARE ADV AETNA MEDICARE ADV HMO/PPO/PFFS [id number] Effective for all dates [address] [place] [address] Medicare -Managed Care SELF PAY NO INSURANCE SELF PAY NO INSURANCE Effective for all dates [place] Self Pay [facility] MANAGED MEDICARE ADV [facility] COMPLETE CHOICE MEDICARE ADV PPO [id number] 11/01/2020-Miguel [address] [address] [place] [address] Medicare -Managed Care Care Teams Multi Site Leasing Consultant Relationship Specialty Start Date End Date Roberto Saleem MD [address] [place] [address] PCP - General 12/25/10
== END 2024-12-11 10:01 | disposition home or self-care (01) ==
LOC: ANHAUDIO 10:00
PROVIDERS: PCP Internal Medicine; Visit Provider Internal Medicine
DX: H90.3 Sensorineural hearing loss, bilateral (principal); H93.13 Tinnitus, bilateral
CPT/HCPCS: 92557; 92567

== ENCOUNTER 2024-12-20 09:21 | Outpatient (CLI) | payer MEDICARE, SELFPAY ==
--- OUTSIDE RECORDS SUMMARY | 2024-12-20 09:32 | XMS_ITS | Clinical Summary ---
Author Organization [facility] Address [address] [place] [address] Care Team Providers Care Loom Fixer Apprentice Name Role Phone Roberto Saleem MD Primary Care Provider [phone] Source Comments [facility] Affiliates and Associated Physician Practices is amultiple site organization consisting of ambulatory clinics and hospital sitesin [place], [place], [place]. This disclosure is being madepursuant to the Care Everywhere program and may not contain all information available regarding this patient. Last updated 18.[facility] Social History Tobacco Use Types Packs/Day Years Used Date Smoking Tobacco: Never Assessed Sex and Gender Information Value Date Recorded Sex Assigned at Not on file Gender Identity Not on file Sexual Orientation Not on file Last Filed Vital Signs Vital Sign Reading Time Taken Comments Blood Pressure 152/80 11/09/2013 9:56 AM RAILROAD SHOP INSPECTOR Pulse 61 11/09/2013 9:56 AM RAILROAD SHOP INSPECTOR Temperature - - Respiratory Rate 18 11/09/2013 9:56 AM RAILROAD SHOP INSPECTOR Oxygen Saturation - - Inhaled Oxygen Concentration - - Weight 142.9 kg (315 lb) 11/09/2013 9:56 AM RAILROAD SHOP INSPECTOR Height - - Body Mass Index [...] AETNA MEDICARE ADV AETNA MEDICARE ADV HMO/PPO/PFFS [id number] Effective for all dates [address] [place] [address] Medicare -Managed Care SELF PAY NO INSURANCE SELF PAY NO INSURANCE Effective for all dates [place], [place] Self Pay AETNA MEDICARE ADV AETNA MEDICARE ADV HMO/PPO/PFFS [id number] Effective for all dates [address] [place] [address] Medicare -Managed Care SELF PAY NO INSURANCE SELF PAY NO INSURANCE Effective for all dates [place] Self Pay AETNA MEDICARE ADV AETNA MEDICARE ADV HMO/PPO/PFFS [id number] Effective for all dates [address] [place] [address] Medicare -Managed Care SELF PAY NO INSURANCE SELF PAY NO INSURANCE Effective for all dates [place] Self Pay AETNA MEDICARE ADV AETNA MEDICARE ADV HMO/PPO/PFFS [id number] Effective for all dates [address] [place] [address] Medicare -Managed Care SELF PAY NO INSURANCE SELF PAY NO INSURANCE Effective for all dates [facility], [place] Self Pay AETNA MEDICARE ADV AETNA MEDICARE ADV HMO/PPO/PFFS [id number] Effective for all dates [address] [place] [address] Medicare -Managed Care SELF PAY NO INSURANCE SELF PAY NO INSURANCE Effective for all dates [facility] [place] Self Pay AETNA MEDICARE ADV AETNA MEDICARE ADV HMO/PPO/PFFS [id number] Effective for all dates [address] [place] [address] Medicare -Managed Care SELF PAY NO INSURANCE SELF PAY NO INSURANCE Effective for all dates [place] Self Pay [employer] MANAGED MEDICARE ADV UHC COMPLETE CHOICE MEDICARE ADV PPO [id number] 11/01/2020-Prese [address] [address] [place] [address] Medicare -Managed Care Care Teams Loom Fixer Apprentice Relationship Specialty Start Date End Date Roberto Saleem MD [address] [facility] [place] [id number] PCP - General 12/25/10
--- OUTSIDE RECORDS SUMMARY | 2024-12-20 09:32 | XMS_ITS | Referral Summary ---
Author Organization [facility] Address [address] [place] [address] Care Team Providers Care Shipping And Receiving Clerk Name Role Phone Roberto Saleem MD Primary Care Provider [phone] Source Comments [facility] Affiliates and Associated Physician Practices is amultiple site organization consisting of ambulatory clinics and hospital sitesin [place], [place] and [place]. This disclosure is being madepursuant to the Care Everywhere program and may not contain all information available regarding this patient. Last updated 18.[facility] Social History Tobacco Use Types Packs/Day Years Used Date Smoking Tobacco: Never Assessed Sex and Gender Information Value Date Recorded Sex Assigned at Not on file Gender Identity Not on file Sexual Orientation Not on file Last Filed Vital Signs Vital Sign Reading Time Taken Comments Blood Pressure 152/80 11/09/2013 9:56 AM TERRA COTTA ROOFER HELPER Pulse 61 11/09/2013 9:56 AM TERRA COTTA ROOFER HELPER Temperature - - Respiratory Rate 18 11/09/2013 9:56 AM TERRA COTTA ROOFER HELPER Oxygen Saturation - - Inhaled Oxygen Concentration - - Weight 142.9 kg (315 lb) 11/09/2013 9:56 AM TERRA COTTA ROOFER HELPER Height - - Body Mass Index - - Plan of Treatment Not on file Insurance Payer Benefit Plan / Group Subscriber ID Effective Dates Phone Address Type AETNA MEDICARE ADV AETNA MEDICARE ADV HMO/PPO/PFFS [id number] Effective for all dates [address] [place] [address] Medicare -Managed Care SELF PAY NO INSURANCE SELF PAY NO INSURANCE Effective for all dates [place] Self Pay AETNA MEDICARE ADV AETNA MEDICARE ADV HMO/PPO/PFFS [id number] Effective for all dates [address] [place] [address] Medicare -Managed Care SELF PAY NO INSURANCE SELF PAY NO INSURANCE Effective for all dates [place] Self Pay AETNA MEDICARE ADV AETNA MEDICARE ADV HMO/PPO/PFFS [id number] Effective for all dates [address] [place] [address] Medicare -Managed Care SELF PAY NO INSURANCE SELF PAY NO INSURANCE Effective for all dates [place] Self Pay AETNA MEDICARE ADV AETNA MEDICARE ADV HMO/PPO/PFFS [id number] Effective for all dates [address] [place] [address] Medicare -Managed Care SELF PAY NO INSURANCE SELF PAY NO INSURANCE Effective for all dates [place] Self Pay AETNA MEDICARE ADV AETNA MEDICARE ADV HMO/PPO/PFFS [id number] Effective for all dates [address] [place] [address] Medicare -Managed Care SELF PAY NO INSURANCE SELF PAY NO INSURANCE Effective for all dates [place] Self Pay AETNA MEDICARE ADV AETNA MEDICARE ADV HMO/PPO/PFFS [id number] Effective for all dates [address] [place] [address] Medicare -Managed Care SELF PAY NO INSURANCE SELF PAY NO INSURANCE Effective for all dates [place] Self Pay [facility] MANAGED MEDICARE ADV [facility] COMPLETE CHOICE MEDICARE ADV PPO [id number] 11/01/2020-Miguel [address] [address] [place] [address] Medicare -Managed Care Care Teams Shipping And Receiving Clerk Relationship Specialty Start Date End Date Roberto Saleem MD [address] [place] [id number] PCP - General 12/25/10
--- OUTSIDE RECORDS SUMMARY | 2024-12-20 09:32 | XMS_ITS | Data Portability ---
Author Organization [place] [facility], Main Office Address [address] [place] [address] Assessment Encounter Date Assessment Date Assessment LastModified [...] None recorded. Procedures injection/a spiration joint/bursa (PROC) 2022 023 [email or web address] In-Office Order, Internal Use Only DO Not Attach Compendium DO Not Attach Compendium, Do Not Delete/merge, [id number] 14:13:11 injection/a spiration joint/bursa (PROC) - in office procedure, administere d by provider 2022 023 [email or web address] In-Office Order, Internal Use Only DO Not Attach Compendium DO Not Attach Compendium, Do Not Delete/merge, [id number] 3 09:40:43 injection/a spiration joint/bursa (PROC) - in office procedure, administere d by provider 2022 023 [email or web address] In-Office Order, Internal Use Only DO Not Attach Compendium DO Not Attach Compendium, Do Not Delete/merge, [id number] 3 08:57:06 injection/a spiration joint/bursa (PROC) - in office procedure, administere d by provider 2022 023 [email or web address] In-Office Order, Internal Use Only DO Not Attach Compendium DO Not Attach Compendium, Do Not Delete/merge, [id number] 3 09:27:11 Surgeries None recorded. Imaging XR, knee 2022 023 [email or web address] [facility] [place], [address], [place], [address], 3 10:00:08 XR, hand, 3 or more view 2022 023 [email or web address] [facility] [place], [address], [place], [address], 3 09:55:58 Medication Orders bupivacaine HCl 0.5 % (5 mg/mL) injection solution 2022 [facility][id number], [address] [place] [address], [id number], 3 15:17:55 Kenalog 10 mg/mL suspension for injection 2022 023 [email or web address] [facility] #42434, [address] [place] [address], [id number], 3 15:17:55 Kenalog 10 mg/mL suspension for injection 2022 023 [facility] #21128, [address] [place] [address], [id number], 3 09:55:28 ropivacaine (PF) 5 mg/mL (0.5 %) injection solution 2022 023 [facility], [address] [place] [address], [id number], 3 09:55:28 Kenalog 10 mg/mL suspension for injection 2022 0[address] [facility] #35427, [address] [place] [address], [id number], 3 09:07:20 ropivacaine (PF) 5 mg/mL (0.5 %) injection solution [address] [facility]81048, [address] [place] [address], [id number], 3 09:07:20 Kenalog 10 mg/mL suspension for injection [address] [facility] #80471, [address] [facility] [address] [facility], [place], [id number], 3 09:53:52 ropivacaine (PF) 5 mg/mL (0.5 %) injection solution [address] [facility] #87616, [address] [facility] [address] [place] [address], [id number], 3 09:53:52 Patient TargetsNo targets recorded. Patient InstructionsNo instructions recorded. Reason for Referral None Reported. Results Created Date Observation Date Name Description Value Unit Range Abnormal Flag Note LastModifiedBy Organization Detail LastModifiedTime 11/30/19 23 XR, foot, 3 or more view No observ ation record ed. [id number] [facility] [place] [address], [place], [address], 12/30/2022 13:53:28 02/12/20 23 XR, hand, 3 or more view No observ ation record ed. [facility] [place] [address], [place], [address], 02/11/2023 09:52:08 07/08/20 23 XR, knee No observ ation record ed. [facility] [place] [address], [place], [address], 07/08/2023 09:55:03 Result Notes None recorded. Problems Name Problem SNOMED Code Status Onset Date Resolution Date Notes Provider Name and Address Organization Details Recorded Time Trigger finger of right hand 4679165312715 9101 Active 2021 Not Available [facility] 3 13:51:57 Radiothera py follow-up 320121212 Active Not Available [facility] 3 13:51:57 Localized, primary osteoarthr itis of the ankle and/or foot Active 2022 Not Available [facility] 3 13:51:58 Localized, primary osteoarthr itis of the ankle and/or foot 626025680 Active 2022 Not Available [facility] 3 13:51:58 Osteoarthr itis of hip 309803311 Active Not Available [facility] 3 13:51:58 Low back pain 445251114 Active Not Available [facility] 3 13:51:58 Current tear of medial cartilage AND/OR meniscus of knee Active Not Available [facility] 3 13:51:58 Knee pain Active Not Available [facility] 3 13:51:58 Knee pain Active 2019 Not Available [facility] 3 13:51:58 Pain of left hand 7693384687758 03 Active 2021 Not Available [facility] 3 13:51:58 Osteoarthr itis 280592125 Active Not Available [facility] 3 13:51:58 Pain of bilateral knee joints 8721240528106 04 Active 2021 Not Available [facility] 3 13:51:58 Derangemen t of knee 99385691 Active Not Available [facility] 3 13:51:58 Pain in left foot 0796152309627 07 Active 2022 VIRGIE Rincon null, [place] [facility] [place] [employer] [facility] 3 09:24:30 Acquired trigger finger of left ring finger 6530503631681 09 Active 2022 [facility], [address], [place], [address] , [place] [facility] [employer] [facility] 09:51:01 Problem Notes None recorded. Procedures Surgical History Date Name Laterality Status Provider Name and Address Organization Details Recorded Time hip joint reconstruction completed Not Available [facility] 12/30/2022 13:51:43 Knee completed VIRGIE Rincon [place] [facility] [employer] [facility] 02/11/2023 09:23:41 Imaging Results Imaging Date Name Status LastModified by Organiz ation Details LastModified Time 11/30/2022 XR, foot, 3 or more view completed [id number] [facility] [place] [address] [facility] [address], [place], [address], 12/30/2022 13:53:28 02/11/2023 XR, hand, 3 or more view completed [facility] [place] [address] [facility] [address], [place], [address], 02/11/2023 09:52:08 07/08/2023 XR, knee completed [facility] [place] [address] [facility] [address], [place], [address], 07/08/2023 09:55:03 Procedure Notes None recorded. Medical Equipment None Reported. Allergies Allergen ID Allergen Name Allergen Category Reaction Reaction Severity Criticality Documentation Date Start Date Code Code System Note Provider Name and Address Organization Details Recorded Time 74518 morphine medicatio n itching Not available Not available 12/30/2022 7052 RxNorm Not Available [facility] 13:53:27 48124 Product containin g angiotens in-conver ting enzyme inhibitor (product) medicatio n cough Not available Not available 12/30/2022 83436 009 SNOMED Not Available [facility] 13:53:27 Medications Name Sig Start Date Stop [...] mg by injectio n route. 2022 active [facility]: 0003-049 02-18 Not Available Not Available Not [...] the office by the doctor 03/25 completed [facility]: 88706091 001 Not Available Not Available Not Available [...] administ ered by the provider 11/25 completed [facility]: 0409-427 6 Not Available Not Available Not [...] mg by injectio n route. 2022 active [facility] 54650-13 4- Not Available Not Available Not Available [...] Available Not Available No t Available Fluvirin 0304-7976 45 mcg (15 mcg x 3)/0.5 mL [...] Updated DateTime 12/30/2022 39.7 kg/m2 180.34 cm 922598.83 g Not Available [facility] 12/30/2022 13:51:51 Date Recorded Body height Body mass index (BMI) Body weight Provider Name and Address Organization Details Last Updated DateTime 02/11/2023 180.34 cm 25.1 kg/m2 16239.63 g Jaimie Eatondeisy [facility] 02/11/2023 09:20:14 Date Recorded Body height Body mass index (BMI) Body weight Provider Name and Address Organization Details Last Updated DateTime 03/04/2023 180.34 cm 39.7 kg/m2 257837.83 g Jeffreyesmemaria EatonStef, [facility] [employer] 03/04/2023 08:55:37 Date Recorded Body height Body mass index (BMI) Body weight Provider Name and Address Organization Details Last Updated DateTime 07/08/2023 180.34 cm 39.7 kg/m2 692492.83 g Samantha Guillermobranden [facility] [employer] 07/08/2023 09:39:05 Date Recorded Body height Body mass index (BMI) Body weight Provider Name and Address Organization Details Last Updated DateTime 10/14/2023 180.34 cm 39.1 kg/m2 028686.86 g Samantha Frank [facility] [employer] 10/14/2023 14:08:11 Social History Question Answer Notes LastModified by Organizat ion Details LastModified Time Tobacco Smoking Status Former Smoker Jadyn mitchell, [place] [facility] [employer] 03/04/2023 08:54:32 What Is Your Level Of Alcohol Consumption? Occasional [email or web address] Information not available 02/11/2023 Sex: Unknown Functional Status None recorded. Mental Status None recorded. Family History Relationship Description Onset Age of this Age Resolved Age Notes LastModified by Organization Details LastModified Time Father Family history of malignant neoplasm [email or web address] Not available 10/14 14:06:34 Father History of hypertension [email or web address] Not available 14:06:34 Father Kidney disease [email or web address] Not available 2022 09:23:18 Unspecified Relation Heart disease [id number] Not available 12/30/2022 13:51:44 Unspecified Relation Diabetes mellitus [id number] [id number] Not available 12/30/2022 13:51:44 Mother History of [...] HAVE YOU BEEN HOSPITALIZED OR SEEN IN [facility] IN THE PAST YEAR ? N [...] SNOMED-CT Code Diagnosis ICD10 Code Diagnosis Note [id number] [facility] [place] [address] [place] [address] 03/25/2021 00:00:00 03/25/2021 16:09:26 [id number] [facility] [place] [address] [place] [address] 09/08/2021 00:00:00 09/08/2021 10:17:23 [id number] [facility] [place] [address] [place] [address] 11/25/2021 00:00:00 11/25/2021 16:06:41 [id number] [facility] [place] [address] [place] [address] 01/07/2022 00:00:00 01/07/2022 14:47:48 [id number] [facility] [place] [address] [place] [address] 04/28/2022 00:00:00 04/28/2022 17:04:01 [id number] [facility] [place] [address] [place] [address] 08/11/2022 00:00:00 08/11/2022 15:35:35 [id number] [facility] [place] [address] [place] [address] 11/30/2022 00:00:00 11/30/2022 09:53:23 [id number] JOANNE Holbrook [facility] [place] [address] [place] [address] 02/11/2023 09:08:59 02/11/2023 09:55:58 Osteoarthritis 181172412 M17.0 Pain of bi lateral knee joints 1930127631 14049 M25.561 M25.562 Pain of left hand 587602 6888 54199 M79.642 Trigger fi nger of right hand 5132862216 2794514 M65.30 Localized, primary osteoarthritis of the ankle and/or foot 241959404 M19.072 Pain in left foot 498360 3524 20840 M79.672 Acquired t wood mechanist finger of left ring finger 0201440043 22106 M65.342 [id number] JOANNE Holbrook [facility] [place] [address] [place] [address] 03/04/2023 08:53:29 03/04/2023 09:03:57 Osteoarthritis 110529192 M17.0 Pain of bi lateral knee joints 8938095394 42053 M25.561 M25.562 Pain of left hand 103622 0124 03254 M79.642 Localized, primary osteoarthritis of the ankle and/or foot 593096507 M19.072 Pain in left foot 108335 6831 59850 M79.672 Acquired t wood mechanist finger of left ring finger 5626462201 40923 M65.136 [id number] JOANNE Holbrook [facility] [place] [address] [place] [address] 07/08/2023 09:36:52 07/08/2023 10:00:07 Pain of bilateral knee joints 6746809249 65923 M25.561 M25.562 Osteoarthritis 281244241 M17.0 [id number] JOANNE Holbrook [facility] [place] [address] [place] [address] 10/14/2023 14:05:54 10/14/2023 14:48:05 Pain of bilateral knee joints 4348114581 47671 M25.561 M25.562 Osteoarthritis 031085071 M17.0 Health Concerns Section Related Observation LastModified by Organization Detai ls LastModified Time None Recorded Concern Status LastModified by Organization Details LastModified Time None Recorded Advance Directives Directive None Recorded Payers Encounter Date Sequence Insurance Name Policy Number Policy Hernandez Covered Member ID Hernandez Member ID Guarantor Name 02/11/2023 1 [employer] (MEDICARE REPLACEMENT PPO) [id number] 1 Reynold P Rydgig [id number] Reynold P Rydgig 03/04/2023 1 [employer] (MEDICARE REPLACEMENT PPO) [id number] Reynold P Rydgig [id number] Reynold P Rydgig 07/08/2023 1 [employer] (MEDICARE REPLACEMENT PPO) [id number] Reynold P Rydgig [id number] Reynold P Rydgig 10/14/2023 1 [employer] (MEDICARE REPLACEMENT PPO) -[id number] Reynold P Rydgig [id number] Reynold P Rydgig Notes Date Note Type [...] JOANNE Holbrook [address], [address], [place], [address], [employer] 02/11/2023 09:52:32 03/04/2023 text/html Patient returns complaining of bilateral knee pain right worse left. He has chronic advanced primary osteoarthritis with significant narrowing in the medial and patellofemoral compartments which are kyyy-hq-bnzo. He gets by with cortisone injections it has been about 3 months since his last injections he would like to repeat these today they do work well for him allow to get out by golf etc.. Today denies any new symptoms no new trauma or injury to either knee. JOANNE Holbrook [address], [address], [place], [address], [employer] 03/04/2023 09:09:40 07/08/2023 text/html Patient returns requesting bilateral knee injections. He comes in every few months it has been 4 months since his last injections. They gave him good relief. He has advanced chronic primary osteoarthritis with significant narrowing in the medial and patellofemoral compartments which are bzyb-bi-crxi. He is not interested in total knee arthroplasty at this time we have talked about it previously. Denies any new trauma injury no erythema heat effusion or signs of infection in either knee. JOANNE Holbrook [address], [address], [place], [address], [facility] [employer] [facility] 07/08/2023 09:55:23 10/14/2023 text/html Patient returns for bilateral knee injections he has severe primary osteoarthritis in the patellofemoral articulations which are clzo-cj-mhlt bilaterally and also in the right medial [...] JOANNE Holbrook [address], [place], [address], [facility] [email or web address] [facility] 10/14/2023 14:36:49
--- OUTSIDE RECORDS SUMMARY | 2024-12-20 09:32 | XMS_ITS | Clinical Summary ---
Author Organization [facility] Address [address] [place] [address] Care Team Providers Care Poultry Hanger Name Role Phone Roberto Saleem MD Primary Care Provider [phone] Allergies Active Allergy Reactions Criticality Noted Date Comments Lisinopril Cough Low 10/21/2021 Morphine Itching Medium 10/21/2021 Oxycodone Other (see comment) 04/06/2024 Medications allopurinol 300 MG tablet Take 1 tablet (300 mg total) by mouth daily. 2 Active amLODIPine 10 MG tablet TAKE 1 TABLET BY MOUTH EVERY MORNING AND 1/2 EVERY EVENING 2 Active atorvastatin 80 MG tablet Take 1 tablet (80 mg total) by mouth daily. 2 Active candesartan 32 MG tablet Take 1 tablet (32 mg total) by mouth daily. 2 Active carvedilol 25 MG tablet Take 1 tablet (25 mg total) by mouth 2 (two) times daily. 2 Active celecoxib 200 MG capsule 2 Active ezetimibe 10 MG tablet Take 1 tablet (10 mg total) by mouth daily. 2 Active glimepiride 2 MG tablet Take 1 tablet (2 mg total) by mouth 2 (two) times daily. 2 Active hydroCHLOROthiazi de 25 MG tablet Take 1 tablet (25 mg total) by mouth daily. 2 Active levothyroxine 100 MCG tablet Take 1 tablet (100 mcg total) by mouth daily. 2 Active TRADJENTA 5 MG tablet Take 1 tablet (5 mg total) by mouth every morning. 2 Active LORazepam 1 MG tablet Take 1 tablet (1 mg total) by mouth nightly at bedtime. at bedtime 2 Active loratadine 10 MG tablet Take 1 tablet (10 mg total) by mouth daily. Active aspirin EC (ECOTRIN) 325 MG tablet aspirin 325 mg tablet,delayed release TK 1 T PO QD Active multivitamin tablet Take 1 tablet by mouth daily. Active fish oil (OMEGA-3 FATTY ACID) 1000 MG Cap capsule Take 1 capsule (1,000 mg total) by mouth daily. Active XIGDUO XR 10-1000 MG TABLET SR 24 HR Take 1 tablet by mouth daily. 2 Active Testosterone 20.25 MG/1.25GM (1.62%) Gel AndroGel Active Lancets (ONETOUCH DELICA PLUS [id number]) [facility] OneTouch Delica Plus Lancet 30 gauge Active Blood Glucose Monitoring Suppl (ONETOUCH PING METER REMOTE) Supplies [facility] OnebeSUCCESS Verio Flex Meter Active betamethasone dipropionate 0.05 % cream APPLY TOPICALLY TO THE AFFECTED AREA TWICE DAILY NEEDED FOR RASH 2 Active ONETOUCH VERIO test strip 3 (three) times daily. 2 Active metFORMIN (GLUCOPHAGE) 500 MG tablet 2 Active clobetasol (TEMOVATE) 0.05 % cream 2 Active Testosterone 1.62 % Gel APPLY 1 PUMP ONTO SKIN TWICE DAILY ROTATE ITES 2 Active GEMTESA 75 MG tablet Take 1 tablet (75 mg total) by mouth daily. Active Docusate Sodium (DSS) 100 MG Cap Take 100 mg by mouth 2 (two) times daily. 4 Active Active Problems Problem Noted Date Diagnosed Date Lumbar radiculopathy 07/16/2023 Family History Medical History Relation Comments Coronary artery disease Father Diabetes Father Brain cancer Mother Relation Status Comments Father Mother Social History Tobacco Use Types Packs/Day Years Used Date Smoking Tobacco: Former Cigarettes Q uit: 2004 Smokeless Tobacco: Never Tobacco Cessation:Counseling Given: Not Answered Alcohol Use Standard Drinks/Week Comments Yes 0 (1 standard drink = 0.6 oz pur e alcohol) 2-3 glasses wine weekly Sex and Gender Information Value Date Recorded Sex Assigned at Not on file Legal Sex Male 9:16 AM CDT Gender Identity Male 03/04/2022 9:34 AM CDT Sexual Orientation Not on file Last Filed Vital Signs Vital Sign Reading Time Taken Comments Blood Pressure 140/84 08/03/2024 2:05 PM CDT Pulse 64 08/03/2024 2:05 PM CDT Temperature 36.3 C (97.4 F) 08/03/2024 1:12 PM CDT Respiratory Rate 18 08/03/2024 2:05 PM CDT Oxygen Saturation 97% 08/03/2024 2:05 PM CDT Inhaled Oxygen Concentration - - Weight 124.3 kg (274 lb) 08/03/2024 1:12 PM CDT Height 182.9 cm (6') 08/03/2024 1:12 PM CDT Body Mass Index 37.16 08/03/2024 1:12 PM CDT Plan of Treatment Health Maintenance Due Date Last Done Comments DTaP, Tdap and Td Vaccines (1 - Tdap) 1959 Annual Medicare Wellness Visit 2007 RSV Immunization or 60+ Years (1 - 1-dose 75+ series) 2017 COVID-19 Vaccine ( season) 2024 03/12/2022, 07/30/2021, 01/09/2021, Additional history exists Influenza Adult (#1) 2024 07/22/2023, 07/02/2023, 06/27/2020, Additional history exists Zoster Vaccines Completed 08/17/2019, 07/02, 05/03/2019 Pneumococcal Vaccine: 65+ Years Completed 07/02/2023, 08/05/2018 Meningococcal B Vaccine Aged Out No l onger eligible based on patient's age to complete this topic Meningococcal Vaccine Aged Out No yadi charles eligible based on patient's age to complete this topic RSV Immunizations Under 20 Months Aged Out No longer eligible based on patient's age to complete this topic Insurance [employer] Care Teams Poultry Hanger Relationship Specialty Start Date End Date Roberto Saleem MD [address] [place] [id number] PCP - General INTERNAL MEDICINE 02/17/22
--- OUTSIDE RECORDS SUMMARY | 2024-12-20 09:32 | XMS_ITS | Patient Health Summary ---
Author Organization [facility] Address [address] [place] [address] Care Team Providers Care It Disaster Recovery Manager Name Role Phone Roberto Saleem MD Primary Care Provider [phone] Note from [facility],non-owned Affiliates and Associated Physician Practices is amultiple site organization consisting of ambulatory clinics and hospital sitesin [place], [place], [place] and [place]. This disclosure is being madepursuant to the Care Everywhere program and may not contain all information available regarding this patient. Last updated 18.[facility] Social History Tobacco Use Types Packs/Day Years Used Date Smoking Tobacco: Never Assessed Sex and Gender Information Value Date Recorded Sex Assigned at Not on file Gender Identity Not on file Sexual Orientation Not on file Last Filed Vital Signs Vital Sign Reading Time Taken Comments Blood Pressure 152/80 11/09/2013 9:56 AM [employer] Pulse 61 11/09/2013 9:56 AM [employer] Temperature - - Respiratory Rate 18 11/09/2013 9:56 AM [employer] Oxygen Saturation - - Inhaled Oxygen Concentration - - Weight 142.9 kg (315 lb) 11/09/2013 9:56 AM [employer] Height - - Body Mass Index - [...] CT HEAD WO CONTRAST (11/09/2013 9:48 AM [employer]) Only the most recent of12 resultswithin the time period is included. Anatomical Region Laterality Modality Head Other Impressions 11/09/2013 10:42 AM [employer] IMPRESSION: 1. Interval resolution of bilateral cerebral convexity subdural hematomas. This report was approved by Rossy Clay M.D. on 11/09/2013 10:41 AM . I, Dr. SHABBIR MARRUFO M.D. have personally reviewed and interpreted this examination/study. This report was electronically signed by SHABBIR MARRUFO M.D. on 11/09/2013 10:42 AM . Narrative 11/09/2013 10:42 AM [employer] EXAMINATION: Computed tomography (CT) of the head [...] * (ABNORMAL) GLUCOSE ACCUCHECK (12/03/2012 11:53 AM [employer]) Only the most recent of24 resultswithin the time period is included. Glucose, Fingerstick 200(H) 70 - 110 MG/DL [facility] Comment:PERFORMED BY: FLORENCIA ZAVALA 12/03/2012 11:5 3 AM [employer] 12/03/2012 12:16 PM [employer] Cassandra Purdy MD LAB - CHEMISTRY OR DERABLES Performing Organization Address [facility] Co de Phone Number [address] [phone] * CULTURE AEROBIC (12/01/2012 10:45 AM [employer]) Organism ID [facility] Culture Routine NOT DONE [facility] Brain (Unspecified) 12/01/2012 10:45 AM [employer] 12/01/2012 10:51 AM [employer] Narrative [facility] - 12/01/2012 4:41 PM [employer] Subdural drain tip Specimen Type->Brain Cassandra Purdy MD LAB - MICROBIOLOGY ORDERABLES Performing Organization Address City/[facility]/ZIP Co de Phone Number [address] [phone] * CULTURE ANAEROBE (12/01/2012 10:45 AM [employer]) Organism ID [facility] Culture Anaerobic NOT DONE [facility] Brain (Unspecified) 12/01/2012 10:45 AM [employer] 12/01/2012 10:51 AM [employer] Narrative [facility] - 12/01/2012 4:41 PM [employer] Subdural drain Specimen Type->Brain Cassandra Purdy MD LAB - MICROBIOLOGY ORDERABLES Performing Organization Address City/[facility]/ZIP Co de Phone Number [address] [phone] * CULTURE VENTRICULAR CATHETER TIP (12/01/2012 10:33 AM [employer]) Pathologist [facility] Culture Ventricular Catheter NO GROWTH AFTER ONE WEEK. [facility] Ventricular Catheter 12/01/2012 10:33 AM [employer] 12/01/2012 4:27 PM [employer] Cassandra Purdy MD LAB - MICROBIOLOGY ORDERABLES Performing Organization Address [facility] Co de Phone Number [address] [phone] * (ABNORMAL) CBC W AUTO DIFFERENTIAL (12/01/2012 12:00 AM [employer]) Only the most recent of6 resultswithin the time period is included. WBC 4.2 3.5 - 10.5 10^3/uL [facility] RBC 2.90(L) 4.30 - 5.70 10^6/uL [facility] Hemoglobin 8.5(L) 13.5 - 17.5 g/dL [facility] Hematocrit 26.6(L) 39.0 - 50.0 % [facility] MCV 91.7 81.0 - 97.0 FL [facility] MCH 29.3 28.0 - 34.0 PG [facility] MCHC 32.0 32.0 - 36.0 G/DL [facility] Platelet 208 150 - 400 10^3/uL [facility] RDW 14.5 11.2 - 14.8 % [facility] RDW-SD 48.1 36 - 50 FL [facility] MPV 8.6(L) 9.3 - 12.8 FL [facility] Neutrophils % 58.7 35.0 - 70.0 % [facility] Lymphocytes % 24.6 19.7 - 55.1 % [facility] Monocytes % 12.9 3 - 15 % [facility] Eosinophils % 3.1 0.0 - 6.0 % [facility] Basophils % 0.7 0.0 - 1.5 % [facility] Neutrophils Absolute 2.5 1.7 - 7.0 10^3/uL [facility] Lymphocyte Absolute 1.0 0.8 - 2.9 10^3/uL [facility] Monocytes Absolute 0.5 0.14 - 0.66 10^3/uL [facility] Eosinophils Absolute 0.13 0.00 - 0.22 10^3/uL [facility] Basophils Absolute 0.03 0.02 - 0.06 10^3/uL [facility] Differential Type AUTO DIFFERENTIAL [facility] Venous blood specimen (specimen) 12/01/2012 12/01/2012 12:31 AM [employer] Cassandra Purdy MD LAB - HEMATOLOGY O RDERABLES [address] [phone] * (ABNORMAL) BASIC METABOLIC PANEL (CALCIUM TOTAL) (12/01/2012 12:00 AM [employer]) Only the most recent of7 resultswithin the time period is included. BUN 9 7 - 26 mg/dL [facility] Creatinine 0.8 0.6 - 1.2 mg/dL [facility] eGFR by MDRD > 60 ML/MIN [facility] Comment: Chronic kidney disease: <60 ml/min Kidney failure: <15 ml/min Based on BSA of 1.73m2. Sodium 140 136 - 145 mmol/L [facility] Potassium 3.9 3.5 - 4.5 mmol/L [facility] Chloride 106 98 - 107 mmol/L [facility] CO2 18(L) 22 - 29 mmol/L [facility] Glucose 104 70 - 115 mg/dL [facility] Calcium 8.6 8.4 - 10.2 mg/dL [facility] Anion Gap 20(H) 8 - 18 [facility] BUN/Creatinine Ratio 11 7 - 23 [facility] Osmolality Calculation 273 270 - 300 mOsm/kg [facility] Venous blood specimen (specimen) 12/01/2012 12/01/2012 12:31 AM [employer] Cassandra Purdy MD LAB - [place] [address], [facility] [phone] * XR SKULL 3VW OR LESS (11/29/2012 9:21 PM [employer]) Anatomical Region Laterality Modality Head Other Impressions 11/30/2012 8:25 AM [employer] Impression: 1. Left sided intracranial catheter terminates in the left parieto-occipital region and exits the skull via a left parietal arcadio hole. Adjacent soft tissue swelling. Report dictated by Adan De La Torre M.D. (residential door installer). I, Dr. AVERY TRUJILLO M.D. have personally reviewed and interpreted this examination/study. This report was electronically signed by AVERY TRUJILLO M.D. on 11/30/2012 8:25 AM . Narrative 11/30/2012 8:25 AM [employer] Exam: PX SKULL < 4 VW Date: [...] by Adan De La Torre M.D. (residential door installer). Dr. AVERY Cassidy M.D. have personally reviewed and interpreted thisexamination/study. This report was electronically signed by AVERY TRUJILLO M.D. on11/30/2012 8:25 AM . Cassandra Purdy MD DIAGNOSTIC IMAGING ORDERABLES * XR CHEST 1VW PORTABLE (11/29/2012 7:22 PM [employer]) Only the most recent of2 resultswithin the time period is included. Anatomical Region Laterality Modality Chest Other Impressions 11/30/2012 8:27 AM [employer] IMPRESSION: Resolved right upper lobe atelectasis. Report dictated by Dr. AVERY Franklin M.D., M.D. have personally reviewed and interpreted this examination/study. This report was electronically signed by AVERY TRUJILLO M.D. on 11/30/2012 8:27 AM . Narrative 11/30/2012 8:27 AM [employer] EXAMINATION: Portable chest, one view HISTORY: Preop [...] ORDERABLES * PTT [facility] (11/29/2012 2:40 PM [employer]) Only the most recent of2 resultswithin the time period is included. APTT 29.9 23.0 - 38.4 SECONDS [facility] Comment: SUGGESTED THERAPEUTIC RANGE FOR FULL DOSE I.V. HEPARIN THERAPY FOR VENOUS THROMBOEMBOLISM IS 66.0 - 91.0 SECONDS, WITH AN APTT RATIO OF 2.1 - 3.0. APTT Ratio 0.98 [facility] Plasma specimen (specimen) BLOOD SPECIMEN / Unknown 11/29/2012 2:40 PM [employer] 11/29/2012 2:53 PM [employer] Narrative [facility] - 11/29/2012 3:18 PM [employer] Is patient on Heparin, Argatroban or Dabigatran?->N unknown if on lovenox Cassandra Purdy MD LAB - COAGULATION ORDERABLES Performing Organization Address City/State/[facility] Co de Phone Number [address] [phone] * PT-INR [facility] (11/29/2012 2:40 PM [employer]) Only the most recent of2 resultswithin the time period is included. PT 14.5 12.1 - 14.8 SECONDS [facility] INR 1.1 [facility] Comment: SUGGESTED THERAPEUTIC RANGE FOR LOW-INTENSITY COUMADIN THERAPY FOR VENOUS THROMBOEMBOLISM IS INR 2.0-3.0. FOR HIGH RISK PATIENTS (MITRAL VALVE PROSTHESIS, ATRIAL FIBRILLATION, HISTORY OF TIA/STROKE), SUGGESTED THERAPEUTIC RANGE IS INR 2.5-3.5. Plasma specimen (specimen) BLOOD SPECIMEN / Unknown 11/29/2012 2:40 PM [employer] 11/29/2012 2:53 PM [employer] Narrative [facility] - 11/29/2012 3:18 PM [employer] Is patient on Heparin, Argatroban or Dabigatran?->N unknown if on lovenox Cassandra Purdy MD LAB - COAGULATION ORDERABLES [address] [phone] * URINALYSIS DIPSTICK AUTO (11/29/2012 2:40 PM [employer]) Color UA YELLOW STRW,YELLOW [facility] Clarity UA CLEAR CLEAR [facility] Specific [place] Urine 1.009 1.001 - 1.030 [facility] pH UA 7.5 5.0 - 8.0 [facility] Protein UA NEGATIVE <20 mg/dL [facility] Glucose UA NEGATIVE NEGATIVE mg/dL [facility] Ketones NEGATIVE NEGATIVE mg/dL [facility] Bilirubin UA NEGATIVE NEGATIVE mg/dL [facility] Blood UA NEGATIVE NEGATIVE [facility] Nitrite UA NEGATIVE NEGATIVE [facility] Leukocyte Esterase NEGATIVE NEGATIVE [facility] Urobilinogen UA < 2.0 <2.0 mg/dL [facility] Urine specimen (specimen) URINE SPECIMEN COLLECTION, CATHETERIZED / Unknown 11/29/2012 2:40 PM [employer] 11/29/2012 2:50 PM [employer] Cassandra Purdy MD LAB - [place] [address], [facility] [phone] * TYPE + SCREEN PANEL (11/29/2012 2:40 PM [employer]) Interpretation ABO/Rh Patient A POS [facility] Antibody Screen NEGATIVE [facility] 11/29/2012 2:40 PM [employer] 11/29/2012 4:31 PM [employer] Cassandra Purdy MD LAB - BLOOD BANK O RDERABLES [facility] [address] [phone] * PHOSPHORUS BLOOD (11/16/2012 5:00 AM [employer]) Only the most recent of3 resultswithin the time period is included. Phosphorus 3.1 2.3 - 4.7 mg/dL [facility] Serum 11/16/2012 5:00 AM [employer] 11/16/2012 5:18 AM [employer] Cassandra Purdy MD LAB - CHEMISTRY OR DERABLES [address] [phone] * MAGNESIUM BLOOD (11/16/2012 5:00 AM [employer]) Only the most recent of3 resultswithin the time period is included. Magnesium 1.8 1.6 - 2.6 mg/dL [facility] Serum 11/16/2012 5:00 AM [employer] 11/16/2012 5:18 AM [employer] Cassandra Purdy MD LAB - CHEMISTRY OR DERABLES [address] [phone] * (ABNORMAL) BLOOD GASES ART (11/14/2012 12:10 AM [employer]) pH Arterial 7.44 7.35 - 7.45 [facility] pCO2 Arterial 37 35 - 45 mmHg [facility] pO2 Arterial 132(H) 71 - 95 mmHg [facility] HCO3 Arterial 24.7 22 - 26 mEq/L [facility] TCO2 Arterial 25.8 25 - 29 mEq/L [facility] Base Excess Arterial 1.1 -2 - 2 [facility] Hemoglobin Arterial 8.2(L) 13.5 - 17.5 g/dL [facility] Oxyhemoglobin Arterial 95.3 95.0 - 100.0 % [facility] Carboxyhemoglobin 2.0 0 - 3 % [facility] Methemoglobin 1.7 0 - 2.0 % [facility] FI O2 Arterial 21 [facility] Arterial blood specimen (specimen) BLOOD SPECIMEN / Unknown 11/14/2012 12:10 AM [employer] 11/14/2012 12:28 AM [employer] Cassandra Purdy MD LAB - BLOOD GASES ORDERABLES [facility] [address] [place] [address] * XR WRIST 3+VW LEFT ROUTINE (12/25/2010 11:44 AM [employer]) Anatomical Region Laterality Modality Wrist / Hand Radiographic Germaine ging 12/25/2010 11:5 2 AM [employer] Impressions 12/25/2010 11:52 AM [employer] Mild osteoarthritis. Questionable distal radial fracture seen on the oblique image only. Narrative 12/25/2010 11:52 AM [employer] Left wrist: HISTORY: Pain. Three views of [...] only. Geronimo [place] MD DIAGNOSTIC IMAGING O [facility] Care Teams It Disaster Recovery Manager Relationship Specialty Start Date End Date Roberto Saleem MD [address] [place] [phone] PCP - General 12/25/10
[2024-12-20 09:52] LABS: Anion Gap 11 mmol/L (4-12); Blood Urea Nitrogen 16 mg/dL (9-20); Calcium 10.1 mg/dL (8.4-10.2); Carbon Dioxide 30 mmol/L (22-30); Chloride 100 mmol/L (98-107); Estimated Glomerular Filt Rate > 60; Glucose 143 mg/dL (65-110); Potassium 4.2 mmol/L (3.4-5.0); Sodium 141 mmol/L (137-145)
== END 2024-12-20 09:22 | disposition home or self-care (01) ==
PROVIDERS: Anesthesiology; PCP Internal Medicine; Visit Provider Plastic Surgery
DX: E11.9 Type 2 diabetes mellitus without complications (principal); Z01.818 Encounter for other preprocedural examination
CPT/HCPCS: 36415; 80048

== ENCOUNTER 2024-12-27 01:06 | Day surgery (SDC) | payer MEDICARE, SELFPAY ==
[2024-12-13 15:42] VITALS: BMI 37.8
--- NOTE | 2024-12-13 16:05 | PC.NURSE ---
Report to the Outpatient Waiting Room, entrance under the green pavilion located off [facility], at time ___6:30AM____ on date __12/27/24 . Planned Procedure Time: ___8:30AM .? Time changes happen often and if your time is changed the preop area will call you the afternoon before. - You and your visitor will be asked to self-screen and do not enter if you have any COVID symptoms. Please call surgeon if you need to reschedule. - A mask is optional within the hospital at this time. - No FOOD/DRINK 8 HOURS PRE-OP/from midnight until time of surgery and no smoking, or chewing tobacco (or any form of nicotine). No chewing gum, candy or mints. Take only the following medications with a SIP of water on the morning of surgery: ___AMLODIPINE, CARVEDILOL, LEVOTHYROXINE. LORAZEPAM NEEDED. DO NOT STOP ANY OF YOUR OTHER PRESCRIPTION MEDICATIONS PRIOR TO SURGERY EXCEPT THE FOLLOWING Hold all vitamins and supplements for 3 days per anesthesiologist.-LAST DOSE 12/23/24. Medications to discontinue per physician __HOLD ASPIRIN PER DR AMBROSE- PATIENT CALLING TO CONFIRM. Please no make-up, nail anguillan, hairspray, perfume, deodorant, or body powder the day of surgery.? No jewelry (including any body piercings) or valuables the day of surgery, leave them at home.? Please take a shower or bath the night before, or the morning of, surgery with an antibacterial soap.? Wear comfortable, loose fitting clothing.? Children are encouraged to wear pajamas. - Jewelry must be removed prior to entering the operating room.? Rings and piercings that are not removed may be cut off. - The hospital will not accept responsibility for valuables.? - Please leave all valuables, including medications, at home the day of surgery. If you are going home after surgery, a licensed reefer truck driver must drive you home.? - NO public transportation without another adult if you receive anesthesia. - We recommend that an adult stay with you for 24 hours following discharge. - We also recommend that you do not drive, make important decision, drink alcoholic beverages, or take any drugs that were not prescribed by your health care provider for at least 24 hours after your discharge time. Follow any additional instructions given to you from your surgeon. Telephone instructions given to ____PATIENT and asked if any additional questions and then verbalized understanding. Patient advised to call surgeon office or pre surgery nurse liaison [phone] if any additional questions.
--- OUTSIDE RECORDS SUMMARY | 2024-12-27 01:09 | XMS_ITS | Patient Health Summary ---
Author Organization [facility] Address [address] [place] [address] Care Team Providers Care Radar Signal Processing Engineer Name Role Phone Roberto Saleem MD Primary Care Provider [phone] Note from [facility],non-owned Affiliates and Associated Physician Practices is amultiple site organization consisting of ambulatory clinics and hospital sitesin [place], [place], [place] and [place]. This disclosure is being madepursuant to the Care Everywhere program and may not contain all information available regarding this patient. Last updated 18.[facility] Social History Tobacco Use Types Packs/Day Years Used Date Smoking Tobacco: Never Assessed Sex and Gender Information Value Date Recorded Sex Assigned at Not on file Gender Identity Not on file Sexual Orientation Not on file Last Filed Vital Signs Vital Sign Reading Time Taken Comments Blood Pressure 152/80 11/09/2013 9:56 AM CREDIT RISK ANALYST Pulse 61 11/09/2013 9:56 AM CREDIT RISK ANALYST Temperature - - Respiratory Rate 18 11/09/2013 9:56 AM CREDIT RISK ANALYST Oxygen Saturation - - Inhaled Oxygen Concentration - - Weight 142.9 kg (315 lb) 11/09/2013 9:56 AM CREDIT RISK ANALYST Height - - Body Mass Index - [...] CT HEAD WO CONTRAST (11/09/2013 9:48 AM CREDIT RISK ANALYST) Only the most recent of12 resultswithin the time period is included. Anatomical Region Laterality Modality Head Other Impressions 11/09/2013 10:42 AM CREDIT RISK ANALYST IMPRESSION: 1. Interval resolution of bilateral cerebral convexity subdural hematomas. This report was approved by Rossy Clay M.D. on 11/09/2013 10:41 AM . I, Dr. SHABBIR MARRUFO M.D. have personally reviewed and interpreted this examination/study. This report was electronically signed by SHABBIR MARRUFO M.D. on 11/09/2013 10:42 AM . Narrative 11/09/2013 10:42 AM CREDIT RISK ANALYST EXAMINATION: Computed tomography (CT) of the head [...] * (ABNORMAL) GLUCOSE ACCUCHECK (12/03/2012 11:53 AM CREDIT RISK ANALYST) Only the most recent of24 resultswithin the time period is included. Glucose, Fingerstick 200(H) 70 - 110 MG/DL [facility] Comment:PERFORMED BY: FLORENCIA ZAVALA 12/03/2012 11:5 3 AM CREDIT RISK ANALYST 12/03/2012 12:16 PM CREDIT RISK ANALYST Cassandra Purdy MD LAB - CHEMISTRY OR DERABLES Performing Organization Address [facility] Co de Phone Number [address] [phone] * CULTURE AEROBIC (12/01/2012 10:45 AM CREDIT RISK ANALYST) Organism ID [facility] Culture Routine NOT DONE [facility] Brain (Unspecified) 12/01/2012 10:45 AM CREDIT RISK ANALYST 12/01/2012 10:51 AM CREDIT RISK ANALYST Narrative [facility] - 12/01/2012 4:41 PM CREDIT RISK ANALYST Subdural drain tip Specimen Type->Brain Cassandra Purdy MD LAB - MICROBIOLOGY ORDERABLES Performing Organization Address City/[facility]/ZIP Co de Phone Number [address] [phone] * CULTURE ANAEROBE (12/01/2012 10:45 AM CREDIT RISK ANALYST) Organism ID [facility] Culture Anaerobic NOT DONE [facility] Brain (Unspecified) 12/01/2012 10:45 AM CREDIT RISK ANALYST 12/01/2012 10:51 AM CREDIT RISK ANALYST Narrative [facility] - 12/01/2012 4:41 PM CREDIT RISK ANALYST Subdural drain Specimen Type->Brain Cassandra Purdy MD LAB - MICROBIOLOGY ORDERABLES Performing Organization Address City/[facility]/ZIP Co de Phone Number [address] [phone] * CULTURE VENTRICULAR CATHETER TIP (12/01/2012 10:33 AM CREDIT RISK ANALYST) Pathologist [facility] Culture Ventricular Catheter NO GROWTH AFTER ONE WEEK. [facility] Ventricular Catheter 12/01/2012 10:33 AM CREDIT RISK ANALYST 12/01/2012 4:27 PM CREDIT RISK ANALYST Cassandra Purdy MD LAB - MICROBIOLOGY ORDERABLES Performing Organization Address [facility] Co de Phone Number [address] [phone] * (ABNORMAL) CBC W AUTO DIFFERENTIAL (12/01/2012 12:00 AM CREDIT RISK ANALYST) Only the most recent of6 resultswithin the time period is included. WBC 4.2 3.5 - 10.5 10^3/uL [facility] RBC 2.90(L) 4.30 - 5.70 10^6/uL [facility] Hemoglobin 8.5(L) 13.5 - 17.5 g/dL [facility] Hematocrit 26.6(L) 39.0 - 50.0 % [facility] MCV 91.7 81.0 - 97.0 FL [facility] MCH 29.3 28.0 - 34.0 PG [facility] MCHC 32.0 32.0 - 36.0 G/DL [facility] Platelet 208 150 - 400 10^3/uL [facility] RDW 14.5 11.2 - 14.8 % [facility] RDW-SD 48.1 36 - 50 FL [facility] MPV 8.6(L) 9.3 - 12.8 FL [facility] Neutrophils % 58.7 35.0 - 70.0 % [facility] Lymphocytes % 24.6 19.7 - 55.1 % [facility] Monocytes % 12.9 3 - 15 % [facility] Eosinophils % 3.1 0.0 - 6.0 % [facility] Basophils % 0.7 0.0 - 1.5 % [facility] Neutrophils Absolute 2.5 1.7 - 7.0 10^3/uL [facility] Lymphocyte Absolute 1.0 0.8 - 2.9 10^3/uL [facility] Monocytes Absolute 0.5 0.14 - 0.66 10^3/uL [facility] Eosinophils Absolute 0.13 0.00 - 0.22 10^3/uL [facility] Basophils Absolute 0.03 0.02 - 0.06 10^3/uL [facility] Differential Type AUTO DIFFERENTIAL [facility] Venous blood specimen (specimen) 12/01/2012 12/01/2012 12:31 AM CREDIT RISK ANALYST Cassandra Purdy MD LAB - HEMATOLOGY O RDERABLES [address] [phone] * (ABNORMAL) BASIC METABOLIC PANEL (CALCIUM TOTAL) (12/01/2012 12:00 AM CREDIT RISK ANALYST) Only the most recent of7 resultswithin the time period is included. BUN 9 7 - 26 mg/dL [facility] Creatinine 0.8 0.6 - 1.2 mg/dL [facility] eGFR by MDRD > 60 ML/MIN [facility] Comment: Chronic kidney disease: <60 ml/min Kidney failure: <15 ml/min Based on BSA of 1.73m2. Sodium 140 136 - 145 mmol/L [facility] Potassium 3.9 3.5 - 4.5 mmol/L [facility] Chloride 106 98 - 107 mmol/L [facility] CO2 18(L) 22 - 29 mmol/L [facility] Glucose 104 70 - 115 mg/dL [facility] Calcium 8.6 8.4 - 10.2 mg/dL [facility] Anion Gap 20(H) 8 - 18 [facility] BUN/Creatinine Ratio 11 7 - 23 [facility] Osmolality Calculation 273 270 - 300 mOsm/kg [facility] Venous blood specimen (specimen) 12/01/2012 12/01/2012 12:31 AM CREDIT RISK ANALYST Cassandra Purdy MD LAB - CHEMI[place] [address], [facility] [phone] * XR SKULL 3VW OR LESS (11/29/2012 9:21 PM CREDIT RISK ANALYST) Anatomical Region Laterality Modality Head Other Impressions 11/30/2012 8:25 AM CREDIT RISK ANALYST Impression: 1. Left sided intracranial catheter terminates in the left parieto-occipital region and exits the skull via a left parietal arcadio hole. Adjacent soft tissue swelling. Report dictated by Adan De La Torre M.D. (resident care aid). I, Dr. AVERY TRUJILLO M.D. have personally reviewed and interpreted this examination/study. This report was electronically signed by AVERY TRUJILLO M.D. on 11/30/2012 8:25 AM . Narrative 11/30/2012 8:25 AM CREDIT RISK ANALYST Exam: PX SKULL < 4 VW Date: [...] dictated by Adan De La Torre M.D. (resident care aid). Dr. AVERY Cassidy M.D. have personally reviewed and interpreted thisexamination/study. This report was electronically signed by AVERY TRUJILLO M.D. on11/30/2012 8:25 AM . Cassandra Purdy MD DIAGNOSTIC IMAGING ORDERABLES * XR CHEST 1VW PORTABLE (11/29/2012 7:22 PM CREDIT RISK ANALYST) Only the most recent of2 resultswithin the time period is included. Anatomical Region Laterality Modality Chest Other Impressions 11/30/2012 8:27 AM CREDIT RISK ANALYST IMPRESSION: Resolved right upper lobe atelectasis. Report dictated by Dr. AVERY Franklin M.D., M.D. have personally reviewed and interpreted this examination/study. This report was electronically signed by AVERY TRUJILLO M.D. on 11/30/2012 8:27 AM . Narrative 11/30/2012 8:27 AM CREDIT RISK ANALYST EXAMINATION: Portable chest, one view HISTORY: Preop [...] ORDERABLES * PTT [facility] (11/29/2012 2:40 PM CREDIT RISK ANALYST) Only the most recent of2 resultswithin the time period is included. APTT 29.9 23.0 - 38.4 SECONDS [facility] Comment: SUGGESTED THERAPEUTIC RANGE FOR FULL DOSE I.V. HEPARIN THERAPY FOR VENOUS THROMBOEMBOLISM IS 66.0 - 91.0 SECONDS, WITH AN APTT RATIO OF 2.1 - 3.0. APTT Ratio 0.98 [facility] Plasma specimen (specimen) BLOOD SPECIMEN / Unknown 11/29/2012 2:40 PM CREDIT RISK ANALYST 11/29/2012 2:53 PM CREDIT RISK ANALYST Narrative [facility] - 11/29/2012 3:18 PM CREDIT RISK ANALYST Is patient on Heparin, Argatroban or Dabigatran?->N unknown if on lovenox Cassandra Purdy MD LAB - COAGULATION ORDERABLES Performing Organization Address City/State/[facility] Co de Phone Number [address] [phone] * PT-INR [facility] (11/29/2012 2:40 PM CREDIT RISK ANALYST) Only the most recent of2 resultswithin the time period is included. PT 14.5 12.1 - 14.8 SECONDS [facility] INR 1.1 [facility] Comment: SUGGESTED THERAPEUTIC RANGE FOR LOW-INTENSITY COUMADIN THERAPY FOR VENOUS THROMBOEMBOLISM IS INR 2.0-3.0. FOR HIGH RISK PATIENTS (MITRAL VALVE PROSTHESIS, ATRIAL FIBRILLATION, HISTORY OF TIA/STROKE), SUGGESTED THERAPEUTIC RANGE IS INR 2.5-3.5. Plasma specimen (specimen) BLOOD SPECIMEN / Unknown 11/29/2012 2:40 PM CREDIT RISK ANALYST 11/29/2012 2:53 PM CREDIT RISK ANALYST Narrative [facility] - 11/29/2012 3:18 PM CREDIT RISK ANALYST Is patient on Heparin, Argatroban or Dabigatran?->N unknown if on lovenox Cassandra Purdy MD LAB - COAGULATION ORDERABLES [address] [phone] * URINALYSIS DIPSTICK AUTO (11/29/2012 2:40 PM CREDIT RISK ANALYST) Color UA YELLOW STRW,YELLOW [facility] Clarity UA CLEAR CLEAR [facility] Specific [place] Urine 1.009 1.001 - 1.030 [facility] pH UA 7.5 5.0 - 8.0 [facility] Protein UA NEGATIVE <20 mg/dL [facility] Glucose UA NEGATIVE NEGATIVE mg/dL [facility] Ketones NEGATIVE NEGATIVE mg/dL [facility] Bilirubin UA NEGATIVE NEGATIVE mg/dL [facility] Blood UA NEGATIVE NEGATIVE [facility] Nitrite UA NEGATIVE NEGATIVE [facility] Leukocyte Esterase NEGATIVE NEGATIVE [facility] Urobilinogen UA < 2.0 <2.0 mg/dL [facility] Urine specimen (specimen) URINE SPECIMEN COLLECTION, CATHETERIZED / Unknown 11/29/2012 2:40 PM CREDIT RISK ANALYST 11/29/2012 2:50 PM CREDIT RISK ANALYST Cassandra Purdy MD LAB - [place] [address], [facility] [phone] * TYPE + SCREEN PANEL (11/29/2012 2:40 PM CREDIT RISK ANALYST) Interpretation ABO/Rh Patient A POS [facility] Antibody Screen NEGATIVE [facility] 11/29/2012 2:40 PM CREDIT RISK ANALYST 11/29/2012 4:31 PM CREDIT RISK ANALYST Cassandra Purdy MD LAB - BLOOD BANK O RDERABLES [facility] [address] [phone] * PHOSPHORUS BLOOD (11/16/2012 5:00 AM CREDIT RISK ANALYST) Only the most recent of3 resultswithin the time period is included. Phosphorus 3.1 2.3 - 4.7 mg/dL [facility] Serum 11/16/2012 5:00 AM CREDIT RISK ANALYST 11/16/2012 5:18 AM CREDIT RISK ANALYST Cassandra Purdy MD LAB - CHEMISTRY OR DERABLES [address] [phone] * MAGNESIUM BLOOD (11/16/2012 5:00 AM CREDIT RISK ANALYST) Only the most recent of3 resultswithin the time period is included. Magnesium 1.8 1.6 - 2.6 mg/dL [facility] Serum 11/16/2012 5:00 AM CREDIT RISK ANALYST 11/16/2012 5:18 AM CREDIT RISK ANALYST Cassandra Purdy MD LAB - CHEMISTRY OR DERABLES [address] [phone] * (ABNORMAL) BLOOD GASES ART (11/14/2012 12:10 AM CREDIT RISK ANALYST) pH Arterial 7.44 7.35 - 7.45 [facility] pCO2 Arterial 37 35 - 45 mmHg [facility] pO2 Arterial 132(H) 71 - 95 mmHg [facility] HCO3 Arterial 24.7 22 - 26 mEq/L [facility] TCO2 Arterial 25.8 25 - 29 mEq/L [facility] Base Excess Arterial 1.1 -2 - 2 [facility] Hemoglobin Arterial 8.2(L) 13.5 - 17.5 g/dL [facility] Oxyhemoglobin Arterial 95.3 95.0 - 100.0 % [facility] Carboxyhemoglobin 2.0 0 - 3 % [facility] Methemoglobin 1.7 0 - 2.0 % [facility] FI O2 Arterial 21 [facility] Arterial blood specimen (specimen) BLOOD SPECIMEN / Unknown 11/14/2012 12:10 AM CREDIT RISK ANALYST 11/14/2012 12:28 AM CREDIT RISK ANALYST Cassandra Purdy MD LAB - BLOOD GASES ORDERABLES [facility] [address] [place] [address] * XR WRIST 3+VW LEFT ROUTINE (12/25/2010 11:44 AM CREDIT RISK ANALYST) Anatomical Region Laterality Modality Wrist / Hand Radiographic Germaine ging 12/25/2010 11:5 2 AM CREDIT RISK ANALYST Impressions 12/25/2010 11:52 AM CREDIT RISK ANALYST Mild osteoarthritis. Questionable distal radial fracture seen on the oblique image only. Narrative 12/25/2010 11:52 AM CREDIT RISK ANALYST Left wrist: HISTORY: Pain. Three views of [...] only. Geronimo Cannon MD DIAGNOSTIC IMAGING O [facility] Care Teams Radar Signal Processing Engineer Relationship Specialty Start Date End Date Roberto Saleem MD [address] [place] [id number] PCP - General 12/25/10
--- OUTSIDE RECORDS SUMMARY | 2024-12-27 01:09 | XMS_ITS | Clinical Summary ---
Author Organization [facility] Office Center Address [address] [place] [address] Care Team Providers Care Anti Tank Missileman Name Role Phone Nomi Moore MD PhD Unavailable [phone] Roberto Saleem MD Primary Care Provider [phone] Spencer Fulton MD Unavailable [phone] Allergies Active Allergy Reactions Criticality Noted Date Comments Lisinopril Cough Low 10/21/2021 Morphine Itching Medium 10/21/2021 Oxycodone Mental status changes,Delusions Medium 04/2024 Medications hydroCHLOROthiazid e (HYDRODIURIL) 25 mg tablet Take 1 tablet (25 mg total) by mouth every morning Active levothyroxine (SYNTHROID) 100 mcg tablet Take 1 tablet (100 mcg total) by mouth access tech before breakfast Active carvedilol (COREG) 25 mg [...] tablet by mouth every morning Active omega 4-dyg-nsj-fish oil 1,000 mg (120 mg-180 mg) capsule [...] 09/27/2018 Assessment & Plan (10/20/2022 1:03 PM WIND TECHNICIAN): Patient seen today for 1 year routine [...] artery disease 11/01/2004 Overview (10/31/2019): stent placed [facility] by Dr. Tompkins Encounters Date Type Department Care Team Description 10/06/2024 10:15 AM WIND TECHNICIAN - 10/06/2024 1:00 PM WIND TECHNICIAN Surgery [facility] Operating Room [facility] [place] [address] Spencer Fulton MD Left Total Knee Arthroplasty 10/06/2024 10:15 AM WIND TECHNICIAN Anesthesia Event [facility] Operating Room [address] [place] [id number] Josephine Ramirez MD [place], Justin Kyle, CRNA 10/06/2024 7:17 AM WIND TECHNICIAN - 10/07/2024 11:00 AM WIND TECHNICIAN Hospital Encounter [address] [address] Spencer Fulton MD Arthritis of left knee (Primary Dx); Primary osteoarthritis of left knee; S/P total knee arthroplasty, left Discharge Disposition: Discharge to home or self care from Last 3 Months Immunizations Immunization Administration Dates Next Due Influenza, Quad, Adjuvantate [...] Coronary artery disease [address] a[address] [facility] by Dr. Tompkins Cataract Hyperlipidemia Gout Sleep [...] on file Legal Sex Male 12:37 PM WIND TECHNICIAN Gender Identity Male 02/02/2022 11:05 AM CDT Sexual Orientation Straight 02/02/2022 11 :05 AM CDT Obstetrics History Last Filed Vital Signs Vital Sign Reading Time Taken Comments Blood Pressure 137/65 10/07/2024 8:35 AM WIND TECHNICIAN Pulse 84 10/07/2024 8:35 AM WIND TECHNICIAN Temperature 36.6 C (97.9 F) 10/07/2024 8:35 AM WIND TECHNICIAN Respiratory Rate 18 10/07/2024 8:35 AM WIND TECHNICIAN Oxygen Saturation 98% 10/07/2024 8:35 AM WIND TECHNICIAN Inhaled Oxygen Concentration - - Weight 124.7 kg (274 lb 14.6 oz) 10/06/2024 8:55 AM WIND TECHNICIAN Height 180.3 cm (5' 10.98 ) 10/06/2024 8:[address] Body Mass Index 38.36 10/06/2024 8:55 AM WIND TECHNICIAN Plan of Treatment Health Maintenance Due Date [...] 08/05/2018, 10/01/2009 Medical Devices Implanted Type Area Residential Mortgage Underwriter Device Identifier Shelf Expiration Date Model / Serial / Lot Total Hip Bilatera l: Hip [employer] Triathlon Tritanium Knee 7 Baseplate Tibial 5536-B-700 - [id number] Implanted:Qty: 1 on 01/20/2024 by Spencer Fulton MD at [facility] Right: Knee [employer] [id number] 09/27/2028 5536-B-70 0 / / [id number] [employer] Triathlon Cruciate Retain Bead Knee Right 7 Component Femoral Pa 5517-F-702 - [id number] Implanted:Qty: 1 on 01/20/2024 by Spencer Fulton MD at [facility] Right: Knee [employer] [id number] 11/04/2027 5517-F-70 2 / / [id number] [employer] Tritanium 38mm 11mm Asymmetric Knee Component Patellar Metal 5552-L-381 - [id number] Implanted:Qty: 1 on 01/20/2024 by Spencer Fulton MD at [facility] Right: Knee [employer] [id number] 12/11/2025 5552-L-38 1 / / [id number] [employer] Insert Tibial Triathlon 7 H9mm Knee Bearing Condylar Stabilize Sterile 6844-M-086-E - [id number] Implanted:Qty: 1 on 01/20/2024 by Spencer Fulton MD at [facility] Right: Knee [employer] [id number] 08/14/2028 5531-G-70 9-E / / [id number] [employer] Tritanium 38mm 11mm Asymmetric Knee Component Patellar Metal 5552-L-381 - [id number] Implanted:Qty: 1 on 10/06/2024 by Spencer Fulton MD at [facility] Left: Knee [employer] [id number] 07/16/2029 5552-L-38 1 / / [id number] [employer] Triathlon Cruciate Retain Bead Knee Left 8 Component Femoral Pa 5517-F-801 - [id number] Implanted:Qty: 1 on 10/06/2024 by Spencer Fulton MD at [facility] Left: Knee [employer] [id number] 07/15/2027 5517-F-80 1 / / [id number] [employer] Insert Tibial Triathlon 7 H10mm Knee Bearing Condylar Stabilize Sterile 9116-T-496-E - [id number] Implanted:Qty: 1 on 10/06/2024 by Spencer Fulton MD at [facility] Left: Knee [employer] [id number] 05/18/2029 5531-G-71 0-E / / [id number] [employer] Triathlon Tritanium Knee 7 Baseplate Tibial 5536-B-700 - [id number] Implanted:Qty: 1 on 10/06/2024 by Spencer Fulton MD at [facility] Left: Knee [employer] [id number] 07/27/2029 5536-B-70 0 / / [id number] Procedures Procedure Name Priority Date/Time Associated Diagnosis Comments POCT GLUCOSE DEVICE Routine 10/07/2024 6 :36 AM WIND TECHNICIAN POCT GLUCOSE DEVICE Routine 10/06/2024 7 :11 PM WIND TECHNICIAN POCT GLUCOSE DEVICE Routine 10/06/2024 7 :09 PM WIND TECHNICIAN POCT GLUCOSE DEVICE Routine 10/06/2024 1 :[address] AN PROCEDURE PLACEHOLDER Routine 10/06/2024 10:[address] AN ELECTIVE ENDOTRACHEAL AIRWAY Routine 10/06/2024 10:48 AM WIND TECHNICIAN ARTHROPLASTY TOTAL KNEE 10/06/2024 10:17 AM WIND TECHNICIAN Primary osteoarthritis of left knee CT AN PROCEDURE PLACEHOLDER Routine 10/06/2024 9:43 AM WIND TECHNICIAN POCT GLUCOSE DEVICE Routine 10/06/2024 8 :37 AM WIND TECHNICIAN EGFR Routine 08/24/2024 11:09 AM CDT Preop testing HEMOGLOBIN A1C Routine 08/24/2024 11:09 AM CDT Preop testing LIPID PANEL Routine 11/01/2019 4:44 AM WIND TECHNICIAN from Last 3 Months or Most Recently Relevant to Health Maintenance Results * POCT glucose (10/07/2024 6:36 AM WIND TECHNICIAN) [facility] Signature Glucose, POC 174 70 - 199 mg/dL Comment: For Glucose values <35 mg/dl when Hematocrit is >60 mg/dl,the test may not accurately detect significant hypoglycemia,and testing in the Laboratory should be considered if clinically indicated. Blood 10/07/2024 6:36 AM WIND TECHNICIAN 10/07/2024 6:36 AM WIND TECHNICIAN Spencer Fulton MD LAB POCT ORDERABLES - DEVICE Final Result Performing Organization Address [facility] Co de Phone Number [facility] [address] [facility] [employer] [place] [address] * POCT glucose (10/06/2024 7:11 PM WIND TECHNICIAN) Glucose, POC 192 70 - 199 mg/dL Comment: For Glucose values <35 mg/dl when Hematocrit is >60 mg/dl,the test may not accurately detect significant hypoglycemia,and testing in the Laboratory should be considered if clinically indicated. Blood 10/06/2024 7:11 PM WIND TECHNICIAN 10/06/2024 7:11 PM WIND TECHNICIAN Spencer Fulton MD LAB POCT ORDERABLES - DEVICE Final Result Performing Organization Address [facility] Co de Phone Number [facility] [address] [facility] [employer] [place] [address] * (ABNORMAL) POCT glucose (10/06/2024 7:09 PM WIND TECHNICIAN) Glucose, POC 302(H) 70 - 199 mg/dL Comment: For Glucose values <35 mg/dl when Hematocrit is >60 mg/dl,the test may not accurately detect significant hypoglycemia,and testing in the Laboratory should be considered if clinically indicated. Blood 10/06/2024 7:09 PM WIND TECHNICIAN 10/06/2024 7:09 PM WIND TECHNICIAN Result [facility] Spencer Fulton MD LAB POCT ORDERABLES - DEVICE Final Result Performing Organization Address [facility] Co de Phone Number [facility] [address] [facility] [employer] [place] [address] * POCT glucose (10/06/2024 1:15 PM WIND TECHNICIAN) Glucose, POC 186 70 - 199 mg/dL Comment: For Glucose values <35 mg/dl when Hematocrit is >60 mg/dl,the test may not accurately detect significant hypoglycemia,and testing in the Laboratory should be considered if clinically indicated. Blood 10/06/2024 1:15 PM WIND TECHNICIAN 10/06/2024 1:15 PM WIND TECHNICIAN Spencer Fulton MD LAB POCT ORDERABLES - DEVICE Final Result [facility] [address] Department [place] [address] * CT AN ELECTIVE ENDOTRACHEAL AIRWAY, CT AN PROCEDURE PLACEHOLDER (10/06/2024 10:48 AM WIND TECHNICIAN) Narrative Demar Vergara CRNA - 10/06/2024 10:48 AM WIND TECHNICIAN Demar Vergara CRNA 10/06/2024 10:51 AM Airway Patient location: OR Urgency: elective Indications for airway management: airway protection and anesthesia Difficult airway: no Staff: Supervising provider: Josephine Ramirez MD Placed by: METER ENGINEER: Demar Vergara CRNA Emergent airway documentation: Risks [...] MD ANESTHESIA ORDERABLES Fin al Result * CT AN PROCEDURE PLACEHOLDER (10/06/2024 9:43 AM WIND TECHNICIAN) Narrative Josephine Ramirez MD - 10/06/2024 9:43 AM WIND TECHNICIAN Josephine Ramirez MD 10/06/2024 9:44 AM Peripheral [...] Result * POCT glucose (10/06/2024 8:37 AM WIND TECHNICIAN) [facility] Glucose, POC 144 70 - 199 mg/dL Comment: For Glucose values <35 mg/dl when Hematocrit is >60 mg/dl,the test may not accurately detect significant hypoglycemia,and testing in the Laboratory should be considered if clinically indicated. Blood 10/06/2024 8:37 AM WIND TECHNICIAN 10/06/2024 8:37 AM WIND TECHNICIAN Spencer Fulton MD LAB POCT ORDERABLES - DEVICE Final Result [facility] [address] Department of Laboratories [place], [place] [id number] * eGFR (08/24/2024 11:09 AM CDT) [facility] eGFR 89 >=60 mL/min/1. 73 m2 Comment: [...] RUBIO LAB BLOOD ORDERABLES Fin al Result [facility] [address] Department [place] [address] * (ABNORMAL) Hemoglobin A1c (08/24/2024 11:09 AM CDT) Hgb A1C 7.0(H) 4.0 - 5.6 % Estimated Average Glucose 154 mg/dL [facility] Comment: The ADA recommends reporting an estimated Average Glucose (eAG) with all Hemoglobin A1c results using the equation derived from a study of 507 normal and diabetic adults. Minority populations were underrepresented and children were not included. (Diabetes Care 31:8121-3830, 2008). The eAG is not equivalent to a fasting glucose. Blood 08/24/2024 11:0 9 AM CDT 08/24/2024 11:09 AM CDT Tabby RUBIO LAB BLOOD ORDERABLES Fin al Result [facility] [address] Department [place] [address] * (ABNORMAL) Lipid panel (11/01/2019 4:44 AM WIND TECHNICIAN) Cholesterol 127 30 - 199 mg/dL [facility] Comment: Interpretive Data Ages < or = [...] revised on 2018. Triglycerides 250(H) <=149 mg/dL [facility] Comment: Interpretive Data Ages < or = [...] revised on 2018. HDL 33(L) >=40 mg/dL [facility] Comment: Interpretive Data Ages < or = [...] on 2018. LDL, calculated 44 <=129 mg/dL [facility] Comment: Interpretive Data Ages < or = [...] revised on 2018. Non-HDL Cholesterol 94 mg/dL [facility] Comment: Interpretive Data Ages < or = [...] last revised on 2018. Chol/HDL ratio 4 [facility] Blood specimen (specimen) 11/01/2019 4:44 AM WIND TECHNICIAN 11/01/2019 5:17 AM WIND TECHNICIAN Kenzie Amaya MD LAB BLOOD ORDERABLES Final Result [facility] [address] Department [place] [address] from Last 3 Months or Most Recently Relevant to Health Maintenance Insurance MEDICARE SOLUTIONS T MEDICARE [facility] MEDICARE MEDICARE SOLUTIONS [facility] MEDICARE [facility] MEDICARE Address: [address] [place] [address] Advance Directives For more information, please contact: [phone] Documents on File Type Date Recorded Patient Correspondence Representative Expl anation ADVANCE DIRECTIVE 01/25/2024 2:02 AM [employer] * Full Code (Latest Code Status on File) Date Activated Date Inactivated Comments 10/06/2024 6:40 PM 10/07/2024 3:38 PM * Full Code Date Activated Date Inactivated Comments 01/20/2024 12:53 PM 01/21/2024 4:25 PM * Full Code Date Activated Date Inactivated Comments 10/31/2019 7:01 PM 11/01/2019 6:11 PM Care Teams Anti Tank Missileman Relationship Specialty Start Date End Date Roberto Saleem MD [address] [place] [address] PCP - General 10/31/19 Nomi Moore MD PhD [address] [facility] [address] [place] [address] Consulting Physician Neurology 11/01/19 [place] [address] [place] [address] Consulting Physician Orthopedic Surgery 10/26/23
--- OUTSIDE RECORDS SUMMARY | 2024-12-27 01:09 | XMS_ITS | Clinical Summary ---
Author Organization [facility] Address [address] [facility] [place] [address] Care Team Providers Care Telehealth Coordinator Name Role Phone Roberto Saleem MD Primary Care Provider [phone] Source Comments [facility] Affiliates and Associated Physician Practices is amultiple site organization consisting of ambulatory clinics and hospital sitesin [place], [place], [place] and [place]. This disclosure is being madepursuant to the Care Everywhere program and may not contain all information available regarding this patient. Last updated 18.[facility] [employer] Social History Tobacco Use Types Packs/Day Years Used Date Smoking Tobacco: Never Assessed Sex and Gender Information Value Date Recorded Sex Assigned at Not on file Gender Identity Not on file Sexual Orientation Not on file Last Filed Vital Signs Vital Sign Reading Time Taken Comments Blood Pressure 152/80 11/09/2013 9:56 AM CUSTOMER ENGAGEMENT ANALYST Pulse 61 11/09/2013 9:56 AM CUSTOMER ENGAGEMENT ANALYST Temperature - - Respiratory Rate 18 11/09/2013 9:56 AM CUSTOMER ENGAGEMENT ANALYST Oxygen Saturation - - Inhaled Oxygen Concentration - - Weight 142.9 kg (315 lb) 11/09/2013 9:56 AM CUSTOMER ENGAGEMENT ANALYST Height - - Body Mass Index [...] AETNA MEDICARE ADV AETNA MEDICARE ADV HMO/PPO/PFFS [id number] Effective for all dates [address] [place] [address] Medicare -Managed Care SELF PAY NO INSURANCE SELF PAY NO INSURANCE Effective for all dates [place], [place] Self Pay AETNA MEDICARE ADV AETNA MEDICARE ADV HMO/PPO/PFFS [id number] Effective for all dates [address] [place] [address] Medicare -Managed Care SELF PAY NO INSURANCE SELF PAY NO INSURANCE Effective for all dates [place], [place] Self Pay AETNA MEDICARE ADV AETNA MEDICARE ADV HMO/PPO/PFFS [id number] Effective for all dates [address] [place] [address] Medicare -Managed Care SELF PAY NO INSURANCE SELF PAY NO INSURANCE Effective for all dates [place], [place] Self Pay AETNA MEDICARE ADV AETNA MEDICARE ADV HMO/PPO/PFFS [id number] Effective for all dates [address] [place] [address] Medicare -Managed Care SELF PAY NO INSURANCE SELF PAY NO INSURANCE Effective for all dates [facility], [place] Self Pay AETNA MEDICARE ADV AETNA MEDICARE ADV HMO/PPO/PFFS [id number] Effective for all dates [address] [place] [address] Medicare -Managed Care SELF PAY NO INSURANCE SELF PAY NO INSURANCE Effective for all dates [facility], [place] Self Pay AETNA MEDICARE ADV AETNA MEDICARE ADV HMO/PPO/PFFS [id number] Effective for all dates [address] [place] [address] Medicare -Managed Care SELF PAY NO INSURANCE SELF PAY NO INSURANCE Effective for all dates [place] Self Pay [employer] MANAGED MEDICARE ADV UHC COMPLETE CHOICE MEDICARE ADV PPO [id number] 11/01/2020-Prese [address] [address] [place] [address] Medicare -Managed Care Care Teams Telehealth Coordinator Relationship Specialty Start Date End Date Roberto Saleem [facility] [address] [facility] [place] [address] PCP - General 12/25/10
--- OUTSIDE RECORDS SUMMARY | 2024-12-27 01:09 | XMS_ITS | Referral Summary ---
Author Organization [facility] Address [address] [place] [place] [address] Care Team Providers Care Varnisher Plasticoater Name Role Phone Roberto Saleem MD Primary Care Provider [phone] Source Comments [facility] Affiliates and Associated Physician Practices is amultiple site organization consisting of ambulatory clinics and hospital sitesin [place], [place], [place] and [place]. This disclosure is being madepursuant to the Care Everywhere program and may not contain all information available regarding this patient. Last updated 18.[facility] [employer] Social History Tobacco Use Types Packs/Day Years Used Date Smoking Tobacco: Never Assessed Sex and Gender Information Value Date Recorded Sex Assigned at Not on file Gender Identity Not on file Sexual Orientation Not on file Last Filed Vital Signs Vital Sign Reading Time Taken Comments Blood Pressure 152/80 11/09/2013 9:56 AM RAILROAD ENGINEER Pulse 61 11/09/2013 9:56 AM RAILROAD ENGINEER Temperature - - Respiratory Rate 18 11/09/2013 9:56 AM RAILROAD ENGINEER Oxygen Saturation - - Inhaled Oxygen Concentration - - Weight 142.9 kg (315 lb) 11/09/2013 9:56 AM RAILROAD ENGINEER Height - - Body Mass Index - - Plan of Treatment Not on file Insurance Payer Benefit Plan / Group Subscriber ID Effective Dates Phone Address Type AETNA MEDICARE ADV AETNA MEDICARE ADV HMO/PPO/PFFS [id number] Effective for all dates [address] [place] [address] Medicare -Managed Care SELF PAY NO INSURANCE SELF PAY NO INSURANCE Effective for all dates [place] Self Pay AETNA MEDICARE ADV AETNA MEDICARE ADV HMO/PPO/PFFS [id number] Effective for all dates [address] [place] [address] Medicare -Managed Care SELF PAY NO INSURANCE SELF PAY NO INSURANCE Effective for all dates [place] Self Pay AETNA MEDICARE ADV AETNA MEDICARE ADV HMO/PPO/PFFS [id number] Effective for all dates [address] [place] [address] Medicare -Managed Care SELF PAY NO INSURANCE SELF PAY NO INSURANCE Effective for all dates [place] Self Pay AETNA MEDICARE ADV AETNA MEDICARE ADV HMO/PPO/PFFS [id number] Effective for all dates [address] [place] [address] Medicare -Managed Care SELF PAY NO INSURANCE SELF PAY NO INSURANCE Effective for all dates [place] Self Pay AETNA MEDICARE ADV AETNA MEDICARE ADV HMO/PPO/PFFS [id number] Effective for all dates [address] [place] [address] Medicare -Managed Care SELF PAY NO INSURANCE SELF PAY NO INSURANCE Effective for all dates [place] Self Pay AETNA MEDICARE ADV AETNA MEDICARE ADV HMO/PPO/PFFS [id number] Effective for all dates [address] [place] [address] Medicare -Managed Care SELF PAY NO INSURANCE SELF PAY NO INSURANCE Effective for all dates [place] Self Pay [facility] MANAGED MEDICARE ADV [facility] COMPLETE CHOICE MEDICARE ADV PPO [id number] 11/01/2020-Miguel [address] [address] [place] [address] Medicare -Managed Care Care Teams Varnisher Plasticoater Relationship Specialty Start Date End Date Roberto Saleem MD [address] [place] [address] PCP - General 12/25/10
--- OUTSIDE RECORDS SUMMARY | 2024-12-27 01:09 | XMS_ITS | Referral Summary ---
Author Organization [facility] Address [address] [place] [address] Care Team Providers Care Meter Reader Name Role Phone Nomi Moore MD PhD Unavailable [phone] Roberto Saleem MD Primary Care Provider [phone] Spencer Fulton MD Unavailable [phone] Encounters Date Type Department Care Team Description 10/06/2024 7:17 AM SPECIALTY SALES CONSULTANT - 10/07/2024 11:00 AM [facility] Hospital Encounter [address] [address] Spencer Fulton MD Arthritis of left knee (Primary Dx); Primary osteoarthritis of left knee; S/P total knee arthroplasty, left Discharge Disposition: Discharge to home or self care 10/06/2024 10:15 AM SPECIALTY SALES CONSULTANT - 10/06/2024 1:00 PM SPECIALTY SALES CONSULTANT Surgery [facility] Operating Room [address] [place] [phone] Spencer Fulton MD Left Total Knee Arthroplasty 10/06/2024 10:15 AM [facility] Anesthesia Event [facility] Operating Room [address] [place] [phone] Josephine Ramirez MD [place], Justin Kyle, [...] 1 tablet (100 mcg total) by mouth master glazier before breakfast Active carvedilol (COREG) 25 mg [...] tablet by mouth every morning Active omega 4-vhu-fka-fish oil 1,000 mg (120 mg-180 mg) capsule [...] 09/27/2018 Assessment & Plan (10/20/2022 1:03 PM SPECIALTY SALES CONSULTANT): Patient seen today for 1 year routine surveillance of an abdominal aortic aneurysm status post EVAR 06/25/2011. Patient denies any abdominal flank or back pain or claudication pain. Currently measuring 3.2 cm x 3.6 cm on duplex which unfortunately is a limited study. Patient to obtain a CT in the next few weeks and we will call with the results. Seen with Dr. uLna. Plan: Obtain CTA in the next few weeks and we will call with the results. He can follow-up in 1 year with an aortic duplex pending the CTA results. Abdominal aortic aneurysm, without rupture 08/20 Subdural hematoma 11/01/2012 Coronary artery disease 11/01/2004 Overview (10/31/2019): stent placed [facility] by Dr. Tompkins Immunizations Immunization Administration Dates Next Due Influenza, [...] on file Legal Sex Male 12:37 PM SPECIALTY SALES CONSULTANT Gender Identity Male 02/02/2022 11:05 AM CDT Sexual Orientation Straight 02/02/2022 11 :05 AM CDT Last Filed Vital Signs Vital Sign Reading Time Taken Comments Blood Pressure 137/65 10/07/2024 8:35 AM SPECIALTY SALES CONSULTANT Pulse 84 10/07/2024 8:35 AM SPECIALTY SALES CONSULTANT Temperature 36.6 C (97.9 F) 10/07/2024 8:35 AM SPECIALTY SALES CONSULTANT Respiratory Rate 18 10/07/2024 8:35 AM SPECIALTY SALES CONSULTANT Oxygen Saturation 98% 10/07/2024 8:35 AM SPECIALTY SALES CONSULTANT Inhaled Oxygen Concentration - - Weight 124.7 kg (274 lb 14.6 oz) 10/06/2024 8:55 AM SPECIALTY SALES CONSULTANT Height 180.3 cm (5' 10.98 ) 10/06/2024 8:[address] Body Mass Index 38.36 10/06/2024 8:55 AM SPECIALTY SALES CONSULTANT Plan of Treatment Not on file Medical Devices Implanted Type Area Livestock Producer Device Identifier Shelf Expiration Date Model / Serial / Lot Total Hip Bilatera l: Hip [employer] Triathlon Tritanium Knee 7 Baseplate Tibial 5536-B-700 - [id number] Implanted:Qty: 1 on 01/20/2024 by Spencer Fulton MD at [facility] Right: Knee [employer] [id number] 09/27/2028 5536-B-70 0 / / [id number] [employer] Triathlon Cruciate Retain Bead Knee Right 7 Component Femoral Pa 5517-F-702 - [id number] Implanted:Qty: 1 on 01/20/2024 by Spencer Fulton MD at [facility] Right: Knee [employer] [id number] 11/04/2027 5517-F-70 2 / / [id number] [employer] Tritanium 38mm 11mm Asymmetric Knee Component Patellar Metal 5552-L-381 - [id number] Implanted:Qty: 1 on 01/20/2024 by Spencer Fulton MD at [facility] Right: Knee [employer] [id number] 12/11/2025 5552-L-38 1 / / [id number] [employer] Insert Tibial Triathlon 7 H9mm Knee Bearing Condylar Stabilize Sterile 5071-D-779-E - [id number] Implanted:Qty: 1 on 01/20/2024 by Spencer Fulton MD at [facility] Right: Knee [employer] [id number] 08/14/2028 5531-G-70 9-E / / [id number] [employer] Tritanium 38mm 11mm Asymmetric Knee Component Patellar Metal 5552-L-381 - [id number] Implanted:Qty: 1 on 10/06/2024 by Spencer Fulton MD at [facility] Left: Knee [employer] [id number] 07/16/2029 5552-L-38 1 / / [id number] [employer] Triathlon Cruciate Retain Bead Knee Left 8 Component Femoral Pa 5517-F-801 - [id number] Implanted:Qty: 1 on 10/06/2024 by Spencer Fulton MD at [facility] Left: Knee [employer] [id number] 07/15/2027 5517-F-80 1 / / [id number] [employer] Insert Tibial Triathlon 7 H10mm Knee Bearing Condylar Stabilize Sterile 9651-P-948-E - [id number] Implanted:Qty: 1 on 10/06/2024 by Spencer Fulton MD at [facility] Left: Knee [employer] [id number] 05/18/2029 5531-G-71 0-E / / [id number] [employer] Triathlon Tritanium Knee 7 Baseplate Tibial 5536-B-700 - [id number] Implanted:Qty: 1 on 10/06/2024 by Spencer Fulton MD at [facility] Left: Knee [employer] [id number] 07/27/2029 5536-B-70 0 / / [id number] Procedures Procedure Name Priority Date/Time Associated Diagnosis Comments POCT GLUCOSE DEVICE Routine 10/07/2024 6 :36 AM SPECIALTY SALES CONSULTANT POCT GLUCOSE DEVICE Routine 10/06/2024 7 :11 PM SPECIALTY SALES CONSULTANT POCT GLUCOSE DEVICE Routine 10/06/2024 7 :09 PM SPECIALTY SALES CONSULTANT POCT GLUCOSE DEVICE Routine 10/06/2024 1 :15 PM SPECIALTY SALES CONSULTANT TX AN PROCEDURE PLACEHOLDER Routine 10/06/2024 10:48 AM SPECIALTY SALES CONSULTANT TX AN ELECTIVE ENDOTRACHEAL AIRWAY Routine 10/06/2024 10:48 AM SPECIALTY SALES CONSULTANT ARTHROPLASTY TOTAL KNEE 10/06/2024 10:17 AM SPECIALTY SALES CONSULTANT Primary osteoarthritis of left knee TX AN PROCEDURE PLACEHOLDER Routine 10/06/2024 9:43 AM SPECIALTY SALES CONSULTANT POCT GLUCOSE DEVICE Routine 10/06/2024 8 :37 AM SPECIALTY SALES CONSULTANT EGFR Routine 08/24/2024 11:09 AM CDT Preop testing HEMOGLOBIN A1C Routine 08/24/2024 11:09 AM CDT Preop testing LIPID PANEL Routine 11/01/2019 4:44 AM SPECIALTY SALES CONSULTANT from Last 3 Months or Most Recently Relevant to Health Maintenance Results * POCT glucose (10/07/2024 6:36 AM SPECIALTY SALES CONSULTANT) [facility] Signature Glucose, POC 174 70 - 199 mg/dL Comment: For Glucose values <35 mg/dl when Hematocrit is >60 mg/dl,the test may not accurately detect significant hypoglycemia,and testing in the Laboratory should be considered if clinically indicated. Blood 10/07/2024 6:36 AM SPECIALTY SALES CONSULTANT 10/07/2024 6:36 AM SPECIALTY SALES CONSULTANT Spencer Fulton MD LAB POCT ORDERABLES - DEVICE Final Result Performing Organization Address [facility] Co de Phone Number [facility] [address] [facility] [place] [address] * POCT glucose (10/06/2024 7:11 PM SPECIALTY SALES CONSULTANT) Glucose, POC 192 70 - 199 mg/dL Comment: For Glucose values <35 mg/dl when Hematocrit is >60 mg/dl,the test may not accurately detect significant hypoglycemia,and testing in the Laboratory should be considered if clinically indicated. Blood 10/06/2024 7:11 PM SPECIALTY SALES CONSULTANT 10/06/2024 7:11 PM SPECIALTY SALES CONSULTANT Spencer Fulton MD LAB POCT ORDERABLES - DEVICE Final Result Performing Organization Address [facility] Co de Phone Number [facility] [address] [place] [address] * (ABNORMAL) POCT glucose (10/06/2024 7:09 PM SPECIALTY SALES CONSULTANT) Glucose, POC 302(H) 70 - 199 mg/dL Comment: For Glucose values <35 mg/dl when Hematocrit is >60 mg/dl,the test may not accurately detect significant hypoglycemia,and testing in the Laboratory should be considered if clinically indicated. Blood 10/06/2024 7:09 PM SPECIALTY SALES CONSULTANT 10/06/2024 7:09 PM SPECIALTY SALES CONSULTANT Spencer Fulton MD LAB POCT ORDERABLES - DEVICE Final Result Performing Organization Address [facility] Co de Phone Number [facility] [address] [facility] [place] [address] * POCT glucose (10/06/2024 1:15 PM SPECIALTY SALES CONSULTANT) Glucose, POC 186 70 - 199 mg/dL Comment: For Glucose values <35 mg/dl when Hematocrit is >60 mg/dl,the test may not accurately detect significant hypoglycemia,and testing in the Laboratory should be considered if clinically indicated. Blood 10/06/2024 1:15 PM SPECIALTY SALES CONSULTANT 10/06/2024 1:15 PM SPECIALTY SALES CONSULTANT us Spencer Fulton MD LAB POCT ORDERABLES - DEVICE Final Result [facility] [address] Department [place] [address] * TX AN ELECTIVE ENDOTRACHEAL AIRWAY, TX AN PROCEDURE PLACEHOLDER (10/06/2024 10:48 AM SPECIALTY SALES CONSULTANT) Narrative Demar Vergara CRNA - 10/06/2024 10:48 AM SPECIALTY SALES CONSULTANT Demar Vergara CRNA 10/06/2024 10:51 AM Airway Patient location: OR Urgency: elective Indications for airway management: airway protection and anesthesia Difficult airway: no Staff: Supervising provider: Josephine Ramirez MD Placed by: GENERAL MERCHANDISE SALESPERSON: Demar Vergara CRNA Emergent airway documentation: Risks [...] MD ANESTHESIA ORDERABLES Fin al Result * TX AN PROCEDURE PLACEHOLDER (10/06/2024 9:43 AM SPECIALTY SALES CONSULTANT) Narrative Josephine Ramirez MD - 10/06/2024 9:43 AM SPECIALTY SALES CONSULTANT Josephine Ramirez MD 10/06/2024 9:44 AM Peripheral [...] Result * POCT glucose (10/06/2024 8:37 AM SPECIALTY SALES CONSULTANT) [facility] Glucose, POC 144 70 - 199 mg/dL Comment: For Glucose values <35 mg/dl when Hematocrit is >60 mg/dl,the test may not accurately detect significant hypoglycemia,and testing in the Laboratory should be considered if clinically indicated. Blood 10/06/2024 8:37 AM SPECIALTY SALES CONSULTANT 10/06/2024 8:37 AM SPECIALTY SALES CONSULTANT Spencer Fulton MD LAB POCT ORDERABLES - DEVICE Final Result [facility] [address] Department [place] [address] * eGFR (08/24/2024 11:09 AM [...] RUBIO LAB BLOOD ORDERABLES Fin al Result [facility] [address] Department [place] [address] * (ABNORMAL) Hemoglobin A1c (08/24/2024 11:09 AM CDT) Hgb A1C 7.0(H) 4.0 - 5.6 % Estimated Average Glucose 154 mg/dL [facility] Comment: The ADA recommends reporting an estimated Average Glucose (eAG) with all Hemoglobin A1c results using the equation derived from a study of 507 normal and diabetic adults. Minority populations were underrepresented and children were not included. (Diabetes Care 31:5958-5396, 2008). The eAG is not equivalent to a fasting glucose. Blood 08/24/2024 11:0 9 AM CDT 08/24/2024 11:09 AM CDT us Tabby RUBIO LAB BLOOD ORDERABLES Fin al Result [facility] [address] Department [place] [address] * (ABNORMAL) Lipid panel (11/01/2019 4:44 AM SPECIALTY SALES CONSULTANT) Cholesterol 127 30 - 199 mg/dL [facility] Comment: Interpretive Data Ages < or [...] revised on 2018. Triglycerides 250(H) <=149 mg/dL [facility] Comment: Interpretive Data Ages < or [...] revised on 2018. HDL 33(L) >=40 mg/dL [facility] Comment: Interpretive Data Ages < or [...] on 2018. LDL, calculated 44 <=129 mg/dL [facility] Comment: Interpretive Data Ages < or [...] revised on 2018. Non-HDL Cholesterol 94 mg/dL [facility] Comment: Interpretive Data Ages < or [...] last revised on 2018. Chol/HDL ratio 4 [facility] Blood specimen (specimen) 11/01/2019 4:44 AM SPECIALTY SALES CONSULTANT 11/01/2019 5:17 AM SPECIALTY SALES CONSULTANT us Kenzie Amaya MD LAB BLOOD ORDERABLES Final Result [facility] [address] Department [place] [address] from Last 3 Months or Most Recently Relevant to Health Maintenance Insurance MEDICARE [facility] Address: [address] [address] [place] [address] [facility] Address: [address] [address] [place] [address] [employer] MED[employer]ARE Advance Directives For more information, please contact: [phone] Documents on File Type Date Recorded 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 Expl 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 ADVANCE DIRECTIVE 01/25/2024 2:02 AM POWER OF ORGANIZATIONAL CONSULTANT-MEDICAL * Full Code (Latest Code Status on File) Date Activated Date Inactivated Comments 10/06/2024 6:40 PM 10/07/2024 3:38 PM * Full Code Date Activated Date Inactivated Comments 01/20/2024 12:53 PM 01/21/2024 4:25 PM * Full Code Date Activated Date Inactivated Comments 10/31/2019 7:01 PM 11/01/2019 6:11 PM Care Teams Meter Reader Relationship Specialty Start Date End Date Roberto Saleem MD [address] [facility] [address] [place] [address] PCP - General 10/31/19 Nomi Moore MD PhD [address] [facility] [address] [place] [address] Consulting Physician Neurology 11/01/19 Spencer Fulton MD [address] [facility] [address] [place] [address] Consulting Physician Orthopedic Surgery 10/26/23
[2024-12-27 06:30] VITALS: BMI 38.0
[2024-12-27] MEDS: LACTATED RINGERS 1,000 ML 30 ML IV CONT (06:55)
--- NOTE | 2024-12-27 06:55 | WPDHPUPDATE1 ---
History and Physical Update Update Date/Time: 12/27/24 06:55 Patient seen and examined in pre-operative holding area. No interval change in medical history or symptoms. Patient recalls previous discussion of benefits and alternatives to procedure. Continues to desire to proceed with right endoscopic possible open carpal tunnel release, right cubital tunnel release and right ring finger steroid injection. Reviewed procedure, post-op expectations and risks including but not limited to bleeding, infection, injury to tendon/nerve/vessel, decreased hand function, stiffness, RSD, no change or worsening of symptoms. I discussed the possible use of assistants and their participation in the case. Patient stated understanding and signed the consent form wishing to proceed.
--- NOTE | 2024-12-27 06:56 | W.PM.PROC2 ---
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 The patient signed the consent form. PROCEDURE IN DETAIL:The patient taken back to OR on the stretcher in supine position. Time out performed with anesthesia, surgeon and staff agreeing on patient's name site and surgery to be performed SCDs were placed on the lower extremities and inflated. A tourniquet was placed on {right} upper extremity and antibiotics given IV After anesthesia administered sedation I injected {10}cc 1%lido with epi and 0.5% marcaine plain at the operative sites The?{right upper extremity/}?was prepped and draped in sterile fashion the??{right upper extremity} was? exsanguinated with Esmarch bandage and tourniquet inflated to 250mmHg I made a transverse incision in the {right} volar distal wrist crease through skin and dermis with 15 blade scalpel.? Littler scissors spread down to antebrachial fascia. A small incision was made in antebrachial fascia allowing access to Carpal tunnel. I proceeded with sequential dilation staying in line with the ring finger and hugging the hook of the hamate.? I then used the synovial elevator to free any adhesions from the underside of the transverse carpal ligament. Next I was able to insert the Microaire endoscopic carpal tunnel device with direct visualization of the transverse fibers on the monitor and proceeded with complete segmental retrograde release of the ligament in its entirety.? I irrigated with normal saline and closed with 4-0 monocryl for dermis and subcuticular closure. I next proceeded with making a longitudinal incision between two heads for flexor carpi ulnaris at end of {right} cubital tunnel with 15 blade scalpel.? Littler scissors were used to spread down to FCU fascia.? An incision was made in FCU fascia and ulnar nerve identified exiting cubital tunnel.? I proceeded with complete retrograde release of the cubital tunnel including 7cm proximal for the intermuscular septum.? The nerve appeared atrophic and flat with visible vaso nervorum.? There was no subluxation on full elbow range of motion. ? I irrigated with normal saline and closure with 4-0 monocryl for dermis and subcuticular. next, I injected 0.3cc 1%lidocaine plain and 0.7cc Betamethasone 6mg/ml into the right ring finger flexor sheath around a1 teddy under sterile conditions. . The incisions were covered with Dermabond then 4x4s, carline, and a posterior elbow and volar wrist splint for patient safety, security and comfort and secured with ro bandages after the tourniquet was let down noting the hand was warm and well perfused.? Patient awaken from anesthesia and transferred to recovery in stable condition Complications - none EBL- 1cc Disposition - home in stable conditions Marisa Jason PA-C was essential for positioning, retraction, closure and dressing placement [facility] Billing Surgery - Charge Forward: Surgery Billing ([id number]. [id number] and [id number],59 for marisa)
[2024-12-27 07:04] LABS: Glucose Point of Care 137 mg/dl (65-105)
[2024-12-27 07:16] VITALS: BP 146/68; PULSE 68; RESP 16; TEMP 36.2; O2SAT 100
--- NOTE | 2024-12-27 07:57 | WPDANESEPPF ---
Anes - Initial Pre Proc Eval Procedure: Operation Date: 12/27/24 08:30 Proposed Procedures p Right Endoscopic Carpal Tunnel Release, Possible Open, Right Cubital Tunnel Release, Right Ring Trigger Finger Steroid Injection - Ghulam Morales MD Date/Time: 12/27/24 07:57 Surgeon: Ghulam Morales MD Pre Op Diagnosis: right carpal and cubital tunnel syndrome, Patient Data Age: 84 Gender: M Height: 1.8 m Weight: 123.9 kg Last Vital Signs Temp 97.1 F L 12/27/24 07:16 Pulse 68 12/27/24 07:16 Resp 16 12/27/24 07:16 BP 146/68 H 12/27/24 07:16 Pulse Ox 100 12/27/24 07:16 O2 Del Method Room Air 12/27/24 07:16 Allergies Allergy/AdvReac Type Severity Reaction Status Date / Time oxycodone (From Percocet) Allergy Severe Confusion Verified 12/27/24 07:12 morphine Allergy Intermediate Itching Verified 12/27/24 07:12 MARIA LUZ Inhibitors Allergy Mild Cough Verified 12/27/24 07:12 lisinopril Allergy Mild Cough Verified 12/27/24 07:12 Home Medications ?Medication ?Instructions ?Recorded ?Confirmed ?Type testosterone (AndroGel) 2 pump topical DAILY 09/05/19 12/13/24 History aspirin 325 mg tablet 325 mg PO DAILY 11/27/19 12/27/24 History Centrum Silver 1 tab-cap PO DAILY 04/23/20 12/27/24 History omega-3 fatty acids 1,000 mg 3,000 mg PO DAILY 05/16/20 12/27/24 History capsule (Fish Oil Concentrate) docusate sodium 100 mg capsule 100 mg PO DAILY PRN PRN 02/04/21 12/13/24 History constipation psyllium husk 0.52 gram capsule 1.04 g PO HS 02/20/21 12/13/24 History (Metamucil) blood-glucose meter (Blood Glucose #1 ea 11/04/22 12/13/24 Rx Monitoring kit) lancets 23 gauge #100 ea 11/04/22 12/13/24 Rx vibegron 75 mg tablet (Gemtesa) [address] Fajardo 09/08/23 12/27/24 History cholecalciferol (vitamin D3) 50 50 mcg PO DAILY 10/13/23 12/27/24 History mcg (2,000 unit) capsule allopurinol 300 mg tablet See Rx Instructions .Route 07/20/24 12/27/24 Rx .COMPLEX #90 tabs hydrochlorothiazide 25 mg tablet See Rx Instructions .Route 08/01/24 12/27/24 Rx .COMPLEX #90 tabs celecoxib 200 mg capsule (Celebrex) 200 mg PO BID #180 caps 09/22/24 12/13/24 Rx blood sugar diagnostic (True #50 strips 10/02/24 12/13/24 Rx Metrix Glucose Test Strip) cyclobenzaprine 10 mg tablet 10 mg PO TID PRN muscle spasm #30 10/04/24 12/13/24 Rx tabs atorvastatin 80 mg tablet See Rx Instructions .Route 10/24/24 12/27/24 Rx .COMPLEX #90 tabs candesartan 32 mg tablet See Rx Instructions .Route 10/24/24 12/27/24 Rx .COMPLEX #90 tabs carvedilol 25 mg tablet See Rx Instructions .Route 10/24/24 12/27/24 Rx .COMPLEX #180 tabs levothyroxine 100 mcg tablet See Rx Instructions .Route 10/24/24 12/27/24 Rx .COMPLEX #90 tabs amlodipine 10 mg tablet See Rx Instructions .Route 10/26/24 12/27/24 Rx .COMPLEX #90 tabs dapagliflozin propaned 10 See Rx Instructions .Route 10/26/24 12/27/24 Rx mg-metformin ER 1,000 mg .COMPLEX #90 tabs tablet,ext rel 24hr linagliptin 5 mg tablet (Tradjenta) See Rx Instructions .Route 10/26/24 12/27/24 Rx .COMPLEX #90 tabs metformin 500 mg tablet See Rx Instructions .Route 11/04/24 12/27/24 Rx .COMPLEX #90 tabs glimepiride 1 mg tablet 1 mg PO QAM #100 tabs 11/27/24 12/27/24 Rx lorazepam 1 mg tablet 1 mg PO BID PRN anxiety 12/13/24 12/13/24 History multivitamin (Daily Multi-Vitamin 1 tablet PO DAILY 12/13/24 12/27/24 History tablet) Laboratory Tests 12/27/24 07:02 POC Capillary Glucose 137 H mg/dl (65-105) Patient hx anesthesia problems: none Family hx anesthesia problems: none Results Review: All pre-operative results and documents have been reviewed as part of the pre-operative evaluation. [facility] Past Medical History Medical History BMI 36.0-36.9,adult Weakness of both hands Bilateral hand pain BMI 37.0-37.9, adult Rhinovirus BMI 38.0-38.9,adult Abdominal mass Chronic pain of right knee Grief Personal history of COVID-19 Lung nodule IVERSON (dyspnea on exertion) UTI (urinary tract infection) Rash BMI 39.0-39.9,adult Gout Insomnia Microscopic hematuria Onychomycosis Ruptured abdominal aortic aneurysm Seizure-like activity Testosterone deficiency Post-op pain Chronic low back pain LOUANN (obstructive sleep apnea) Dysuria Abdominal pain Dysphagia Encounter for routine adult health examination with abnormal findings Pre-operative clearance Elevated homocysteine Encounter for Medicare annual wellness exam Encounter for routine adult health examination without abnormal findings Hx of transient ischemic attack (TIA) Hospital discharge follow-up Tingling of upper extremity Tingling of face Body mass index (BMI) of 40.1 to 44.9 in adult Bladder cancer Hypothyroidism (acquired) History of CVA (cerebrovascular accident) Hearing loss DM type 2 (diabetes mellitus, type 2) Prostate cancer screening DJD (degenerative joint disease), multiple sites On long goods drier drug therapy Mixed hyperlipidemia History of abdominal aortic aneurysm (AAA) had repaired now being watched Colon cancer screening Benign essential hypertension ASHD (arteriosclerotic heart disease) Surgical History Surgical History Status post total knee replacement, left Status post total knee replacement, right History of intravascular stent placement Hx of hernia repair Status post urethral surgery S/P AAA repair History of total hip replacement Family History Family History Father Diabetes mellitus Family history of coronary artery disease Family history of diabetes mellitus in first degree relative Mother Family history of cardiovascular disease Family history of malignant neoplasm of brain Family history of heart disease in male family member before age 55 Social History Social History Social History: Smoking packs per day: 1 Smoking cigarettes per day: 20.0 Years smoked: 50 Smoking pack-years: 50.00 Smoking status: Former smoker Tobacco type: cigarettes Second hand tobacco smoke exposure: Yes Smoking end date: 11/01/04 Alcohol intake: current Drinks per week: 14 Alcohol use details: Daily; C[employer]TA[employer]S [employer] WINE Substance use: never Substance use type: does not use Lack of Transportation: No Lack of Food: Never True Current Housing: I Have Housing Concerned About Future Housing: No Difficulty Paying Gas/Electric Bills: No Difficulty Paying for Meds: No Currently Unemployed: No Education: Master's Degree or Higher Difficulty w/ Childcare or Family Care: No Living arrangements: alone Occupation/Education: retired Gender identity (if verbalized by the patient): Male Spiritual care concerns: No Agree to blood products: Yes Anes - Eval Final PreProcedure Day of Procedure 12/27/24 07:57 Patient weight: obese Lungs: normal air movement Airway: Mallampati scale and special considerations (Edentulous. ) Neurological: alert and oriented Last oral intake: >/= 8 hours ASA classification: IV Emergent: no Anesthetic plan: proceed Anesthesia type and monitoring: general GIVS and standard monitoring Results Review: All pre-operative results and documents have been reviewed as part of the pre-operative evaluation. HTN, hyperlipidemia, LOUANN on CPAP, hx PTCA approx 2004, hx AAA rupture/repair. Informed Consent: The patient's anesthetic plan and its attendant risks and benefits were discussed with the patient/family/POA. Questions were solicited and answers provided to the satisfaction of the patient/family/POA.
[2024-12-27] MEDS: BETAMETHASONE SODIUM PHOSPHATE PF INJ 6 MG/ML VIAL INFILTRATE (08:00)
[2024-12-27] MEDS: LIDO 1%/EPINEPHRINE 1:100,000 50 ML VIAL 10 ML INFILTRATE (08:03)
[2024-12-27] MEDS: ceFAZolin 3 GM/D5W 100 ML 100 ML IVPB (08:11)
[2024-12-27 08:45] VITALS: BP 125/61; PULSE 66; RESP 16; O2SAT 97
[2024-12-27 08:52] LABS: Glucose Point of Care 135 mg/dl (65-105)
[2024-12-27 09:15] VITALS: BP 104/75; PULSE 60; RESP 16
[2024-12-27 09:34] VITALS: BP 134/55; PULSE 55; RESP 16
== END 2024-12-27 09:42 | disposition home or self-care (01) ==
PROVIDERS: PCP Internal Medicine; Visit Provider Plastic Surgery
PROC: 01N54ZZ Release Median Nerve, Percutaneous Endoscopic Approach (ICD-10-PCS; CPT 29848; principal; 2024-12-27 08:30)
DX: G56.01 Carpal tunnel syndrome, right upper limb (principal); M65.341 Trigger finger, right ring finger; G56.21 Lesion of ulnar nerve, right upper limb; E78.2 Mixed hyperlipidemia; I10 Essential (primary) hypertension; E11.9 Type 2 diabetes mellitus without complications; G47.00 Insomnia, unspecified; G47.33 Obstructive sleep apnea (adult) (pediatric); E03.9 Hypothyroidism, unspecified; I25.10 Atherosclerotic heart disease of native coronary artery without angina pectoris; G89.29 Other chronic pain; M25.561 Pain in right knee; E66.9 Obesity, unspecified; Z68.38 Body mass index [BMI] 38.0-38.9, adult; Z79.82 Long term (current) use of aspirin; Z79.1 Long term (current) use of non-steroidal anti-inflammatories (NSAID); Z79.84 Long term (current) use of oral hypoglycemic drugs; Z79.899 Other long term (current) drug therapy; Z98.890 Other specified postprocedural states; Z95.5 Presence of coronary angioplasty implant and graft; Z87.891 Personal history of nicotine dependence; Z86.79 Personal history of other diseases of the circulatory system; Z86.73 Personal history of transient ischemic attack (TIA), and cerebral infarction without residual deficits; Z85.51 Personal history of malignant neoplasm of bladder; Z80.8 Family history of malignant neoplasm of other organs or systems; Z82.49 Family history of ischemic heart disease and other diseases of the circulatory system
CPT/HCPCS: 64718; 29848; 20550; 82948; J0690; J2004; J2704; J3010; J7120

== ENCOUNTER 2025-01-17 09:45 | Outpatient (CLI) | payer MEDICARE, SELFPAY ==
--- NOTE | ~2025-01-17 | XR_ITS ---
XR abdomen/kub 1V Ordering provider: Roberto Saleem MD History: . R10.9 - Unspecified abdominal pain . Comparison: None. FINDINGS: BOWEL: Nonobstructive bowel gas pattern. Fecal material is loaded in the colon. ORGANOMEGALY: None. SIGNIFICANT PATHOLOGIC CALCIFICATIONS: None. OTHER: No free air is seen under the diaphragm. Stent grafts are seen in the aorta and iliac arteries . Bilateral hip arthroplasty. Degenerative the spine. Bilateral sacroiliacs. Pubic symphysitis. IMPRESSION: NO ACUTE ABDOMINAL FINDINGS. Constipation. Reviewed, dictated and finalized at location A.
--- NOTE | ~2025-01-17 | US_ITS ---
COMPLETE ABDOMINAL ULTRASOUND Ordering provider: Roberto Saleem MD History: . R50.9 - Fever, unspecified . Comparison: None. FINDINGS: LIVER: Hepatomegaly. The liver measures 22.7 cm. Increased echotexture. No focal hepatic lesions or p erihepatic fluid collections are identified. Normal flow of the portal vein. GALLBLADDER: Distended. Measures 12.2 x 6.4 x 6.6 cm. No evidence for stones, or sludge. Minimal dany cholecystic fluid is seen. The wall thickness is 3 mm. A positive sonographic Tariq's sign was noted . BILIARY DUCTS: No evidence for intra or extrahepatic biliary dilation. Common bile duct measures 5.1 mm in diameter which is within normal limits. PANCREAS: Partially seen. SPLEEN: Normal size, echotexture and contour and measures 15.8 cm in length. KIDNEYS: Right measures 15.3x 7.4x 7.4 cm in length and the left 14.9x 7.8x 6.5 cm in length. There i s no evidence for hydronephrosis, solid renal mass, renal calculi or perinephric fluid collections. S imple right renal cyst seen medially measuring 3.8 x 4 x 4.4 cm. Simple Right parapelvic cyst is seen measuring 2.3 x 1.3 x 2.5 cm. Simple Right superior pole cyst is also noted measuring 5.7 x 5.9 x 4 cm. UPPER ABDOMINAL AORTA: Normal in caliber. IVC: Patent. FREE FLUID: None. IMPRESSION: Distended gallbladder with thickened wall and pericholecystic fluid in addition to positive Tariq's sign suggestive of acalculous cholecystitis. Clinical correlation advised. Right kidney simple cysts. Hepatomegaly with fat infiltration. Reviewed, dictated and finalized at location A. IMPRESSION: Distended gallbladder with thickened wall and pericholecystic fluid in addition to positive Tariq's sign suggestive of acalculous cholecystitis. Clinical cor relation advised. Right kidney simple cysts. Hepatomegaly with fat infiltration.
--- OUTSIDE RECORDS SUMMARY | 2025-01-17 10:53 | XMS_ITS | Data Portability ---
Author Organization [place] - [facility] [employer], Main Office Address [address] [place] [address] Assessment Encounter Date Assessment Date Assessment LastModified [...] DO Not Attach Compendium, Do Not Delete/merge, [id number] 3 14:13:11 injection/a spiration joint/bursa (PROC) - in office procedure, administere d by provider 2022 023 [email or web address] In-Office Order, Internal Use Only DO Not Attach Compendium DO Not Attach Compendium, Do Not Delete/merge, [id number] 3 09:40:43 injection/a spiration joint/bursa (PROC) - in office procedure, administere d by provider 2022 023 [email or web address] In-Office Order, Internal Use Only DO Not Attach Compendium DO Not Attach Compendium, Do Not Delete/merge, [id number] 3 08:57:06 injection/a spiration joint/bursa (PROC) - in office procedure, administere d by provider 2022 023 [email or web address] In-Office Order, Internal Use Only DO Not Attach Compendium DO Not Attach Compendium, Do Not Delete/merge, [id number] 3 09:27:11 Surgeries None recorded. Imaging XR, knee 2022 023 [email or web address] [facility] [place], [address], [place], [address], 3 10:00:08 XR, hand, 3 or more view 2022 023 [email or web address] [facility] [place], [address], [place], [address], 3 09:55:58 Medication Orders bupivacaine HCl 0.5 % (5 mg/mL) injection solution 2022 023 [id number], [address] [place] [address], [id number], 3 15:17:55 Kenalog 10 mg/mL suspension for injection 2022 023 [email or web address] [facility] #64969, [address] [place] [address], [id number], 3 15:17:55 Kenalog 10 mg/mL suspension for injection 2022 023 [facility] #[id number], [address] [place] [address], [id number], 3 09:55:28 ropivacaine (PF) 5 mg/mL (0.5 %) injection solution 2022 023 [id number], [address] [place] [address], [id number], 3 09:55:28 Kenalog 10 mg/mL suspension for injection 2022 023 [facility] #97249, [address] [place] [address], [id number], 3 09:07:20 ropivacaine (PF) 5 mg/mL (0.5 %) injection solution [address] [facility][id number], [address] [place] [address], [id number], 3 09:07:20 Kenalog 10 mg/mL suspension for injection [address] [facility] #26946, [address] [facility] [address] [facility], [place], [place], [id number], 3 09:53:52 ropivacaine (PF) 5 mg/mL (0.5 %) injection solution [address] [facility] #38798, [address] [facility] [address] [place] [address], [id number], 3 09:53:52 Patient TargetsNo targets recorded. Patient InstructionsNo instructions recorded. Reason for Referral None Reported. Results Created Date Observation Date Name Description Value Unit Range Abnormal Flag Note LastModifiedBy Organization Detail LastModifiedTime 11/30/19 23 XR, foot, 3 or more view No observ ation record ed. [id number] [facility] [place] [address], [place], [address], 12/30/2022 13:53:28 02/12/20 23 XR, hand, 3 or more view No observ ation record ed. [facility] [place] [address], [place], [address], 02/11/2023 09:52:08 07/08/20 23 XR, knee No observ ation record ed. [facility] [place] [address], [place], [address], 07/08/2023 09:55:03 Result Notes None recorded. Problems Name Problem SNOMED Code Status Onset Date Resolution Date Notes Provider Name and Address Organization Details Recorded Time Trigger finger of right hand 7042851164222 9101 Active 2021 Not Available [facility] 3 13:51:57 [employer] py follow-up 975410715 Active Not Available [facility] 3 13:51:57 Localized, primary osteoarthr itis of the ankle and/or foot Active 2022 Not Available [facility] 3 13:51:58 Localized, primary osteoarthr itis of the ankle and/or foot 703331354 Active 2022 Not Available [facility] 3 13:51:58 Osteoarthr itis of hip 831865052 Active Not Available [facility] 3 13:51:58 Low back pain 936313271 Active Not Available [facility] 3 13:51:58 Current tear of medial cartilage AND/OR meniscus of knee Active Not Available [facility] 3 13:51:58 Knee pain Active Not Available [facility] 3 13:51:58 Knee pain Active 2019 Not Available [facility] 3 13:51:58 Pain of left hand 5263895380419 03 Active 2021 Not Available [facility] 3 13:51:58 Osteoarthr itis 731164113 Active Not Available [facility] 3 13:51:58 Pain of bilateral knee joints 1829951265181 04 Active 2021 Not Available [facility] 3 13:51:58 Derangemen t of knee 77943783 Active Not Available [facility] 3 13:51:58 Pain in left foot 9846063754756 07 Active 2022 VIRGIE Rincon null, [place] [facility] [place] [employer] [facility] 3 09:24:30 Acquired trigger finger of left ring finger 2144742556939 09 Active 2022 JOANNE Holbrook [facility], [address], [place], [address] , [place] [facility] [employer] 09:51:01 Problem Notes None recorded. Procedures Surgical History Date Name Laterality Status Provider Name and Address Organization Details Recorded Time hip joint reconstruction completed Not Available [facility] 12/30/2022 13:51:43 Knee completed VIRGIE Rincon [place] [facility] [employer] 02/11/2023 09:23:41 Imaging Results Imaging Date Name Status LastModified by Organiz ation Details LastModified Time 11/30/2022 XR, foot, 3 or more view completed [id number] [facility] [place] [address] [facility] [address], [place], [address], 12/30/2022 13:53:28 02/11/2023 XR, hand, 3 or more view completed [facility] [place] [address] [facility] [address], [place], [address], 02/11/2023 09:52:08 07/08/2023 XR, knee completed [facility] [place] [address] [facility] [address], [place], [address], 07/08/2023 09:55:03 Procedure Notes None recorded. Medical Equipment None Reported. Allergies Allergen ID Allergen Name Allergen Category Reaction Reaction Severity Criticality Documentation Date Start Date Code Code System Note Provider Name and Address Organization Details Recorded Time 90286 morphine medicatio n itching Not available Not available 12/30/2022 7052 RxNorm Not Available [facility] 13:53:27 09452 Product containin g angiotens in-conver ting enzyme inhibitor (product) medicatio n cough Not available Not available 12/30/2022 80153 009 SNOMED Not Available [facility] 13:53:27 Medications Name Sig Start Date Stop [...] mg by injectio n route. 2022 active [facility]: 0003-049 02-18 Not Available Not Available [...] the office by the doctor 03/25 completed [facility]: [id number] 001 Not Available Not Available Not Available [...] administ ered by the provider 11/25 completed [facility]: 0409-427 6 Not Available Not Available [...] mg by injectio n route. 2022 active [facility] 00665-16 4- Not Available Not Available Not Available [...] Available Not Available No t Available Fluvirin 9205-5489 45 mcg (15 mcg x 3)/0.5 mL [...] and Address Organization Details Last Updated DateTime 11/30/2022 39.7 kg/m2 180.34 cm 223561.83 g Not Available [employer] 12/30/2022 13:51:51 Date Recorded Body height Body mass index (BMI) Body weight Provider Name and Address Organization Details Last Updated DateTime 02/11/2023 180.34 cm 25.1 kg/m2 26942.63 g Jaimie Eatondeisy [facility] [employer] [facility] [employer] 02/11/2023 09:20:14 Date Recorded Body height Body mass index (BMI) Body weight Provider Name and Address Organization Details Last Updated DateTime 03/04/2023 180.34 cm 39.7 kg/m2 926603.83 g Jeffreyesmemaria EatonStef, [facility] [employer] [facility] [employer] 03/04/2023 08:55:37 Date Recorded Body height Body mass index (BMI) Body weight Provider Name and Address Organization Details Last Updated DateTime 07/08/2023 180.34 cm 39.7 kg/m2 018778.83 g Samantha Guillermobranden [facility] [employer] [facility] [employer] 07/08/2023 09:39:05 Date Recorded Body height Body mass index (BMI) Body weight Provider Name and Address Organization Details Last Updated DateTime 10/14/2023 180.34 cm 39.1 kg/m2 904965.86 g Samatnha Frank [facility] [employer] [facility] [employer] 10/14/2023 14:08:11 Social History Question Answer Notes LastModified by Organizat ion Details LastModified Time Tobacco Smoking Status Former Smoker Jadyn mitcehll, [facility] [employer] 03/04/2023 08:54:32 What Is Your Level Of Alcohol Consumption? Occasional [email or web address] Information not available 02/11/2023 Sex: Unknown Functional Status None recorded. Mental Status None recorded. Family History Relationship Description Onset Age of this Age Resolved Age Notes LastModified by Organization Details LastModified Time Father Family history of malignant neoplasm [email or web address] Not available 10/14 14:06:34 Father History of hypertension Not available 14:06:34 Father Kidney disease [email or web address] Not available 2022 09:23:18 Unspecified Relation Heart disease [id number] Not available 12/30/2022 13:51:44 Unspecified Relation Diabetes mellitus [id number] Not available 12/30/2022 13:51:44 Mother History of hypertension [email or web address] Not available 14:06:34 Medical History Condition Response BLINDNESS N KIDNEY STONES N CARPAL TUNNEL SYNDROME N MRSA N LUNG DISEASE/DISORDER N HISTORY OF DRUG ABUSE N RADIATION / CHEMOTHERAPY N COPD N ANKLE PAIN N SPORTS INJURY N BLOOD DISEASES N SCHIZOPHRENIA N SHINGLES N DEPRESSION (INCLUDING POST ) N SHOULDER PAIN N BOWEL PROBLEMS N STROKE/TIA N KNEE PAIN N ULCERS [...] HAVE YOU BEEN HOSPITALIZED OR SEEN IN [facility] IN THE PAST YEAR ? N [...] SNOMED-CT Code Diagnosis ICD10 Code Diagnosis Note [id number] [facility] [place] [address] [place] [address] 03/25/2021 00:00:00 03/25/2021 16:09:26 [id number] [facility] [place] [address] [place] [address] 09/08/2021 00:00:00 09/08/2021 10:17:23 [id number] [facility] [place] [address] [place] [address] 11/25/2021 00:00:00 11/25/2021 16:06:41 [id number] [facility] [place] [address] [place] [address] 01/07/2022 00:00:00 01/07/2022 14:47:48 [id number] [facility] [place] [address] [place] [address] 04/28/2022 00:00:00 04/28/2022 17:04:01 [id number] [facility] [place] [address] [place] [address] 08/11/2022 00:00:00 08/11/2022 15:35:35 [id number] [facility] [place] [address] [place] [address] 11/30/2022 00:00:00 11/30/2022 09:53:23 [id number] JOANNE Holbrook [facility] [place] [address] [place] [address] 02/11/2023 09:08:59 02/11/2023 09:55:58 Osteoarthritis 560765554 M17.0 Pain of bi lateral knee joints 6414143268 96480 M25.561 M25.562 Pain of left hand 025482 6176 06813 M79.642 Trigger fi nger of right hand 0838837937 7710883 M65.30 Localized, primary osteoarthritis of the ankle and/or foot 330156624 M19.072 Pain in left foot 264794 8901 54351 M79.672 Acquired t pole inspector finger of left ring finger 5008875965 98701 M65.342 [id number] JOANNE Holbrook [facility] [place] [address] [place] [address] 03/04/2023 08:53:29 03/04/2023 09:03:57 Osteoarthritis 202348671 M17.0 Pain of bi lateral knee joints 5071336106 56346 M25.561 M25.562 Pain of left hand 911230 4910 29755 M79.642 Localized, primary osteoarthritis of the ankle and/or foot 727118503 M19.072 Pain in left foot 204787 2362 06833 M79.672 Acquired t pole inspector finger of left ring finger 1140884856 55897 M65.358 [id number] JOANNE Holbrook [facility] [place] [address] [place] [address] 07/08/2023 09:36:52 07/08/2023 10:00:07 Pain of bilateral knee joints 2757642052 81207 M25.561 M25.562 Osteoarthritis 502289797 M17.0 [id number] JOANNE Holbrook [facility] [place] [address] [place] [address] 10/14/2023 14:05:54 10/14/2023 14:48:05 Pain of bilateral knee joints 7198274719 54286 M25.561 M25.562 Osteoarthritis 591382960 M17.0 Health Concerns Section Related Observation LastModified by Organization Detai ls LastModified Time None Recorded Concern Status LastModified by Organization Details LastModified Time None Recorded Advance Directives Directive None Recorded Payers Encounter Date Sequence Insurance Name Policy Number Policy Hernandez Covered Member ID Hernandez Member ID Guarantor Name 02/11/2023 1 [employer] (MEDICARE REPLACEMENT PPO) [id number] 1 Reynold P Rydgig [id number] Reynold P Rydgig 03/04/2023 1 [employer] (MEDICARE REPLACEMENT PPO) [id number] Reynold P Rydgig [id number] Reynold P Rydgig 07/08/2023 1 [employer] (MEDICARE REPLACEMENT PPO) [id number] Reynold P Rydgig [id number] Reynold P Rydgig 10/14/2023 1 [employer] (MEDICARE REPLACEMENT PPO) [id number] Reynold P Rydgig [id number] Reynold P Rydgig Notes Date Note Type [...] JOANNE Holbrook [address], [address], [place], [address], [employer] 02/11/2023 09:52:32 03/04/2023 text/html Patient returns complaining of bilateral knee pain right worse left. He has chronic advanced primary osteoarthritis with significant narrowing in the medial and patellofemoral compartments which are homy-qt-nana. He gets by with cortisone injections it has been about 3 months since his last injections he would like to repeat these today they do work well for him allow to get out by golf etc.. Today denies any new symptoms no new trauma or injury to either knee. JOANNE Holbrook [address], [address], [place], [address], [employer] 03/04/2023 09:09:40 07/08/2023 text/html Patient returns requesting bilateral knee injections. He comes in every few months it has been 4 months since his last injections. They gave him good relief. He has advanced chronic primary osteoarthritis with significant narrowing in the medial and patellofemoral compartments which are feyt-uq-cjol. He is not interested in total knee arthroplasty at this time we have talked about it previously. Denies any new trauma injury no erythema heat effusion or signs of infection in either knee. JOANNE Holbrook [address], [address], [place], [address], [facility] [employer] [facility] 07/08/2023 09:55:23 10/14/2023 text/html Patient returns for bilateral knee injections he has severe primary osteoarthritis in the patellofemoral articulations which are zuif-jz-kqrc bilaterally and also in the right medial [...] this time. JOANNE Holbrook [address], [facility] [address], [place], [address], [facility] [employer] [facility] [employer] [facility] 10/14/2023 14:36:49
--- OUTSIDE RECORDS SUMMARY | 2025-01-17 10:53 | XMS_ITS | Clinical Summary ---
Author Organization [facility] at [facility] Office Center Address [address] [place] [address] Care Team Providers Care Dude Wrangler Name Role Phone Nomi Moore MD PhD Unavailable [phone] Roberto Saleem MD Primary Care Provider [phone] Spencer Fulton MD Unavailable [phone] Allergies Active Allergy Reactions Criticality Noted Date Comments Lisinopril Cough Low 10/21/2021 Morphine Itching Medium 10/21/2021 Oxycodone Mental status changes,Delusions Medium 04/2024 Medications hydroCHLOROthiazid e (HYDRODIURIL) 25 mg tablet Take 1 tablet (25 mg total) by mouth every morning Active levothyroxine (SYNTHROID) 100 mcg tablet Take 1 tablet (100 mcg total) by mouth lamp 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 Tompkins Immunizations Immunization Administration Dates [...] Coronary artery disease [address] a[address] [facility] by Dr. Tompkins Cataract Hyperlipidemia Gout Sleep [...] on file Legal Sex Male 12:37 PM MANAGER PRACTICE Gender Identity Male 02/02/2022 11:05 AM CDT Sexual Orientation Straight 02/02/2022 11 :05 AM CDT Obstetrics History Last Filed Vital Signs Vital Sign Reading Time Taken Comments Blood Pressure 137/65 10/07/2024 8:35 AM MANAGER PRACTICE Pulse 84 10/07/2024 8:35 AM MANAGER PRACTICE Temperature 36.6 C (97.9 F) 10/07/2024 8:35 AM MANAGER PRACTICE Respiratory Rate 18 10/07/2024 8:35 AM MANAGER PRACTICE Oxygen Saturation 98% 10/07/2024 8:35 AM MANAGER PRACTICE Inhaled Oxygen Concentration - - Weight 124.7 kg (274 lb 14.6 oz) 10/06/2024 8:55 AM MANAGER PRACTICE Height 180.3 cm (5' 10.98 ) 10/06/2024 8:[address] Body Mass Index 38.36 10/06/2024 8:55 AM MANAGER PRACTICE Plan of Treatment Health Maintenance Due Date [...] 08/05/2018, 10/01/2009 Medical Devices Implanted Type Area Physiotherapy Aide Device Identifier Shelf Expiration Date Model / Serial / Lot Total Hip Bilatera l: Hip [employer] Triathlon Tritanium Knee 7 Baseplate Tibial 5536-B-700 - [id number] Implanted:Qty: 1 on 01/20/2024 by Spencer Fulton MD at [facility] Right: Knee [employer] [id number] 09/27/2028 5536-B-70 0 / / [id number] [employer] Triathlon Cruciate Retain Bead Knee Right 7 Component Femoral Pa 5517-F-702 - [id number] Implanted:Qty: 1 on 01/20/2024 by Spencer Fulton MD at [facility] Right: Knee [employer] [id number] 11/04/2027 5517-F-70 2 / / [id number] [employer] Tritanium 38mm 11mm Asymmetric Knee Component Patellar Metal 5552-L-381 - [id number] Implanted:Qty: 1 on 01/20/2024 by Spencer Fulton MD at [facility] Right: Knee [employer] [id number] 12/11/2025 5552-L-38 1 / / [id number] [employer] Insert Tibial Triathlon 7 H9mm Knee Bearing Condylar Stabilize Sterile 0683-U-818-E - [id number] Implanted:Qty: 1 on 01/20/2024 by Spencer Fulton MD at [facility] Right: Knee [employer] [id number] 08/14/2028 5531-G-70 9-E / / [id number] [employer] Tritanium 38mm 11mm Asymmetric Knee Component Patellar Metal 5552-L-381 - [id number] Implanted:Qty: 1 on 10/06/2024 by Spencer Fulton MD at [facility] Left: Knee [employer] [id number] 07/16/2029 5552-L-38 1 / / [id number] [employer] Triathlon Cruciate Retain Bead Knee Left 8 Component Femoral Pa 5517-F-801 - [id number] Implanted:Qty: 1 on 10/06/2024 by Spencer Fulton MD at [facility] Left: Knee [employer] [id number] 07/15/2027 5517-F-80 1 / / [id number] [employer] Insert Tibial Triathlon 7 H10mm Knee Bearing Condylar Stabilize Sterile 6271-Y-004-E - [id number] Implanted:Qty: 1 on 10/06/2024 by Spencer Fulton MD at [facility] Left: Knee [employer] [id number] 05/18/2029 5531-G-71 0-E / / [id number] [employer] Triathlon Tritanium Knee 7 Baseplate Tibial 5536-B-700 - [id number] Implanted:Qty: 1 on 10/06/2024 by Spencer Fulton MD at [facility] Left: Knee [employer] [id number] 07/27/2029 5536-B-70 0 / / [id number] Procedures Procedure Name Priority Date/Time Associated Diagnosis Comments EGFR Routine 08/24/2024 11:09 AM CDT Preop testing HEMOGLOBIN A1C Routine 08/24/2024 11:09 AM CDT Preop testing LIPID PANEL Routine 11/01/2019 4:44 AM MANAGER PRACTICE from Last 3 Months or Most Recently Relevant to Health Maintenance Results * eGFR (08/24/2024 11:09 AM CDT) eGFR [...] RUBIO LAB BLOOD ORDERABLES Fin al Result Performing Organization Address City/[facility]/ZIP Co de Phone Number [facility] [address] Department of Laboratories [place], [place] [id number] * (ABNORMAL) Hemoglobin A1c (08/24/2024 11:09 AM CDT) Hgb A1C 7.0(H) 4.0 - 5.6 % Estimated Average Glucose 154 mg/dL [facility] Comment: The ADA recommends reporting an estimated Average Glucose (eAG) with all Hemoglobin A1c results using the equation derived from a study of 507 normal and diabetic adults. Minority populations were underrepresented and children were not included. (Diabetes Care 31:8488-7679, 2008). The eAG is not equivalent to a fasting glucose. Blood 08/24/2024 11:0 9 AM CDT 08/24/2024 11:09 AM CDT Tabby RUBIO LAB BLOOD ORDERABLES Fin al Result Performing Organization Address City/[facility]/ZIP Co de Phone Number [facility] [address] [place] [address] * (ABNORMAL) Lipid panel (11/01/2019 4:44 AM MANAGER PRACTICE) Cholesterol 127 30 - 199 mg/dL [facility] Comment: Interpretive Data Ages < or = [...] on 2018. Triglycerides 250(H) <=149 mg/dL [facility] Comment: Interpretive Data Ages < or = [...] on 2018. HDL 33(L) >=40 mg/dL [facility] Comment: Interpretive Data Ages < or = [...] 2018. LDL, calculated 44 <=129 mg/dL [facility] Comment: Interpretive Data Ages < or = [...] on 2018. Non-HDL Cholesterol 94 mg/dL [facility] Comment: Interpretive Data Ages < or = [...] revised on 2018. Chol/HDL ratio 4 [facility] Blood specimen (specimen) 11/01/2019 4:44 AM MANAGER PRACTICE 11/01/2019 5:17 AM MANAGER PRACTICE us Kenzie Amaya MD LAB BLOOD ORDERABLES Final Result [facility] [address] Department [place] [address] from Last 3 Months or Most Recently Relevant to Health Maintenance Insurance MEDICARE SOLUTIONS T MEDICARE [facility] MEDICARE Address: [facility] [id number] [place] [address] [facility] MEDICARE MEDICARE SOLUTIONS [facility] MEDICARE Advance Directives For more information, please contact: [phone] Documents on File Type Date Recorded Patient Process Design Engineer Expl anation ADVANCE DIRECTIVE 01/25/2024 2:02 AM POWER OF PATIENT ADMITTING REPRESENTATIVE-MEDICAL * Full Code (Latest Code Status on File) Date Activated Date Inactivated Comments 10/06/2024 6:40 PM 10/07/2024 3:38 PM * Full Code Date Activated Date Inactivated Comments 01/20/2024 12:53 PM 01/21/2024 4:25 PM * Full Code Date Activated Date Inactivated Comments 10/31/2019 7:01 PM 11/01/2019 6:11 PM Care Teams Dude Wrangler Relationship Specialty Start Date End Date Roberto Saleem MD [address] [place] [address] PCP - General 10/31/19 Nomi Moore MD PhD [address] [facility] [address] [place] [address] Consulting Physician Neurology 11/01/19 Spencer Fulton MD [address] [address] Consulting Physician Orthopedic Surgery 10/26/23
--- OUTSIDE RECORDS SUMMARY | 2025-01-17 10:53 | XMS_ITS | Clinical Summary ---
Author Organization [facility] Address [address] [place] [address] Care Team Providers Care Cable Tool Driller Name Role Phone Roberto Saleem MD Primary Care Provider [phone] Allergies Active Allergy Reactions Criticality Noted Date [...] Gel AndroGel Active Lancets (ONETOUCH DELICA PLUS [id number]) [facility] OneTouch Delica Plus Lancet 30 gauge Active Blood Glucose Monitoring Suppl (ONETOUCH PING METER REMOTE) Supplies [facility] OnePodimetrics Verio Flex Meter Active betamethasone dipropionate 0.05 [...] complete this topic Insurance AETNA Care Teams Cable Tool Driller Relationship Specialty Start Date End Date Roberto Saleem MD [address] [place] [id number] PCP - General INTERNAL MEDICINE 02/17/22
--- OUTSIDE RECORDS SUMMARY | 2025-01-17 10:53 | XMS_ITS | Referral Summary ---
Author Organization [facility] Office Center Address [address] [place] [address] Care Team Providers Care Blanking Machine Operator Name Role Phone Nomi Moore MD PhD Unavailable [phone] Roberto Saleem MD Primary Care Provider [phone] Spencer Fulton MD Unavailable [phone] Allergies Active Allergy Reactions Criticality Noted Date Comments Lisinopril Cough Low 10/21/2021 Morphine Itching Medium 10/21/2021 Oxycodone Mental status changes,Delusions Medium 04/2024 Medications hydroCHLOROthiazid e (HYDRODIURIL) 25 mg tablet Take 1 tablet (25 mg total) by mouth every morning Active levothyroxine (SYNTHROID) 100 mcg tablet Take 1 tablet (100 mcg total) by mouth security researcher before breakfast Active carvedilol (COREG) 25 mg [...] tablet by mouth every morning Active omega 8-bbt-fkz-fish oil 1,000 mg (120 mg-180 mg) capsule [...] 09/27/2018 Assessment & Plan (10/20/2022 1:03 PM SUCCESS COACH): Patient seen today for 1 year routine [...] artery disease 11/01/2004 Overview (10/31/2019): stent placed [place] by Dr. Tompkins Immunizations Immunization Administration Dates [...] on file Legal Sex Male 12:37 PM SUCCESS COACH Gender Identity Male 02/02/2022 11:05 AM CDT Sexual Orientation Straight 02/02/2022 11 :05 AM CDT Last Filed Vital Signs Vital Sign Reading Time Taken Comments Blood Pressure 137/65 10/07/2024 8:35 AM SUCCESS COACH Pulse 84 10/07/2024 8:35 AM SUCCESS COACH Temperature 36.6 C (97.9 F) 10/07/2024 8:35 AM SUCCESS COACH Respiratory Rate 18 10/07/2024 8:35 AM SUCCESS COACH Oxygen Saturation 98% 10/07/2024 8:35 AM SUCCESS COACH Inhaled Oxygen Concentration - - Weight 124.7 kg (274 lb 14.6 oz) 10/06/2024 8:55 AM SUCCESS COACH Height 180.3 cm (5' 10.98 ) 10/06/2024 8:55 AM C Body Mass Index 38.36 10/06/2024 8:55 AM SUCCESS COACH Plan of Treatment Not on file Medical Devices Implanted Type Area Electrical Tester Battery Device Identifier Shelf Expiration Date Model / Serial / Lot Total Hip Bilatera l: Hip [employer] Triathlon Tritanium Knee 7 Baseplate Tibial 5536-B-700 - [id number] Implanted:Qty: 1 on 01/20/2024 by Spencer Fulton MD at [facility] Right: Knee [employer] [id number] 09/27/2028 5536-B-70 0 / / [id number] [employer] Triathlon Cruciate Retain Bead Knee Right 7 Component Femoral Pa 5517-F-702 - [id number] Implanted:Qty: 1 on 01/20/2024 by Spencer Fulton MD at [facility] Right: Knee [employer] [id number] 11/04/2027 5517-F-70 2 / / [id number] [employer] Tritanium 38mm 11mm Asymmetric Knee Component Patellar Metal 5552-L-381 - [id number] Implanted:Qty: 1 on 01/20/2024 by Spencer Fulton MD at [facility] Right: Knee [employer] [id number] 12/11/2025 5552-L-38 1 / / [id number] [employer] Insert Tibial Triathlon 7 H9mm Knee Bearing Condylar Stabilize Sterile 2956-F-327-E - [id number] Implanted:Qty: 1 on 01/20/2024 by Spencer Fulton MD at [facility] Right: Knee [employer] [id number] 08/14/2028 5531-G-70 9-E / / [id number] [employer] Tritanium 38mm 11mm Asymmetric Knee Component Patellar Metal 5552-L-381 - [id number] Implanted:Qty: 1 on 10/06/2024 by Spencer Fulton MD at [facility] Left: Knee [employer] [id number] 07/16/2029 5552-L-38 1 / / [id number] [employer] Triathlon Cruciate Retain Bead Knee Left 8 Component Femoral Pa 5517-F-801 - [id number] Implanted:Qty: 1 on 10/06/2024 by Spencer Fulton MD at [facility] Left: Knee [employer] [id number] 07/15/2027 5517-F-80 1 / / [id number] [employer] Insert Tibial Triathlon 7 H10mm Knee Bearing Condylar Stabilize Sterile 9054-V-353-E - [id number] Implanted:Qty: 1 on 10/06/2024 by Spencer Fulton MD at [facility] Left: Knee [employer] [id number] 05/18/2029 5531-G-71 0-E / / [id number] [employer] Triathlon Tritanium Knee 7 Baseplate Tibial 5536-B-700 - [id number] Implanted:Qty: 1 on 10/06/2024 by Spencer Fulton MD at [facility] Left: Knee [employer] [id number] 07/27/2029 5536-B-70 0 / / [id number] Procedures Procedure Name Priority Date/Time Associated Diagnosis Comments EGFR Routine 08/24/2024 11:09 AM CDT Preop testing HEMOGLOBIN A1C Routine 08/24/2024 11:09 AM CDT Preop testing LIPID PANEL Routine 11/01/2019 4:44 AM SUCCESS COACH from Last 3 Months or Most Recently [...] RUBIO LAB BLOOD ORDERABLES Fin al Result [facility] [address] Department [place] [address] * (ABNORMAL) Hemoglobin A1c (08/24/2024 11:09 AM CDT) Hgb A1C 7.0(H) 4.0 - 5.6 % Estimated Average Glucose 154 mg/dL [facility] Comment: The ADA recommends reporting an estimated Average Glucose (eAG) with all Hemoglobin A1c results using the equation derived from a study of 507 normal and diabetic adults. Minority populations were underrepresented and children were not included. (Diabetes Care 31:6600-8545, 2008). The eAG is not equivalent to a fasting glucose. Blood 08/24/2024 11:0 9 AM CDT 08/24/2024 11:09 AM CDT us Tabby RUBIO LAB BLOOD ORDERABLES Fin al Result [facility] [address] Department [place] [address] * (ABNORMAL) Lipid panel (11/01/2019 4:44 AM SUCCESS COACH) Cholesterol 127 30 - 199 mg/dL [facility] Comment: Interpretive Data Ages < or = 19 years Acceptable: <170 mg/dL Borderline high: 170-199 mg/dL High: >or= 200 mg/dL Ages > or = 20 years Desirable: <200 mg/dL Borderline high: 200-239 mg/dL High: >or= 240 mg/dL Literature References: 1. Expert Panel on Integrated Guidelines for Cardiovascular Health and Risk Reduction in Children and Adolescents. Pediatrics 2011;128:S213 2. NCEP Expert Panel. Circulation 2003;110:227 Current Interpretive Data was last revised on 2018. Triglycerides 250(H) <=149 mg/dL [facility] Comment: Interpretive Data Ages < or [...] revised on 2018. HDL 33(L) >=40 mg/dL [facility] Comment: Interpretive Data Ages < or [...] on 2018. LDL, calculated 44 <=129 mg/dL [facility] Comment: Interpretive Data Ages < or [...] revised on 2018. Non-HDL Cholesterol 94 mg/dL [facility] Comment: Interpretive Data Ages < or [...] last revised on 2018. Chol/HDL ratio 4 [facility] Blood specimen (specimen) 11/01/2019 4:44 AM SUCCESS COACH 11/01/2019 5:17 AM SUCCESS COACH Kenzie Amaya MD LAB BLOOD ORDERABLES Final Result [facility] [address] Department [place] [address] from Last 3 Months or Most Recently Relevant to Health Maintenance Insurance MEDICARE [facility] MEDICARE Address: [address] [address] [place] [address] T MEDICARE [facility] MEDICARE MEDICARE [facility] MEDICARE Address: [address] [address] [place] [address] [facility] MEDICARE Advance Directives For more information, please contact: [phone] Documents on File Type Date Recorded Patient Assistive Technology Specialist Expl anation ADVANCE DIRECTIVE 01/25/2024 2:02 AM POWER OF PORT SURVEYOR-MEDICAL * Full Code (Latest Code Status on File) Date Activated Date Inactivated Comments 10/06/2024 6:40 PM 10/07/2024 3:38 PM * Full Code Date Activated Date Inactivated Comments 01/20/2024 12:53 PM 01/21/2024 4:25 PM * Full Code Date Activated Date Inactivated Comments 10/31/2019 7:01 PM 11/01/2019 6:11 PM Care Teams Blanking Machine Operator Relationship Specialty Start Date End Date Roberto Saleem MD [address] [facility] [address] [place] [address] PCP - General 10/31/19 Nomi Moore MD PhD [address] [facility] [address] [place] [address] Consulting Physician Neurology 11/01/19 Spencer Fulton MD [address] [address] Consulting Physician Orthopedic Surgery 10/26/23
--- OUTSIDE RECORDS SUMMARY | 2025-01-17 10:53 | XMS_ITS | Clinical Summary ---
Author Organization [facility] Address [address] [place] [address] Care Team Providers Care Packing House Laborer Name Role Phone Roberto Saleem MD Primary Care Provider [phone] Source Comments [facility],non-[facility] Affiliates and Associated Physician Practices is amultiple site organization consisting of ambulatory clinics and hospital sitesin [place], [place], [place] and [place]. This disclosure is being madepursuant to the Care Everywhere program and may not contain all information available regarding this patient. Last updated 18.[facility] [employer]Tendo Social History Tobacco Use Types Packs/Day Years Used Date Smoking Tobacco: Never Assessed Sex and Gender Information Value Date Recorded Sex Assigned at Not on file Gender Identity Not on file Sexual Orientation Not on file Last Filed Vital Signs Vital Sign Reading Time Taken Comments Blood Pressure 152/80 11/09/2013 9:56 AM PUBLIC RELATIONS STUDIES DIRECTOR Pulse 61 11/09/2013 9:56 AM PUBLIC RELATIONS STUDIES DIRECTOR Temperature - - Respiratory Rate 18 11/09/2013 9:56 AM PUBLIC RELATIONS STUDIES DIRECTOR Oxygen Saturation - - Inhaled Oxygen Concentration - - Weight 142.9 kg (315 lb) 11/09/2013 9:56 AM PUBLIC RELATIONS STUDIES DIRECTOR Height - - Body Mass Index - [...] complete this topic MENINGOCOCCAL (Group B) VACCINE SHARED DECISION-MAKING Aged Out No longer eligible based on patient's age to complete this topic MENINGOCOCCAL GROUPS A/C/Y/W VACCINE Aged Out No longer eligible based on patient's age to complete this topic Insurance Payer Benefit Plan / Group Subscriber ID Effective Dates Phone Address Type AETNA MEDICARE ADV AETNA MEDICARE ADV HMO/PPO/PFFS [id number] Effective for all dates [address] [place] [address] Medicare -Managed Care SELF PAY NO INSURANCE SELF PAY NO INSURANCE Effective for all dates [place] Self Pay AETNA MEDICARE ADV AETNA MEDICARE ADV HMO/PPO/PFFS [id number] Effective for all dates [address] [place] [address] Medicare -Managed Care SELF PAY NO INSURANCE SELF PAY NO INSURANCE Effective for all dates [place] Self [place] AETNA MEDICARE ADV AETNA MEDICARE ADV HMO/PPO/PFFS [id number] Effective for all dates [address] [place] [address] Medicare -Managed Care SELF PAY NO INSURANCE SELF PAY NO INSURANCE Effective for all dates [place] Self [place] AETNA MEDICARE ADV AETNA MEDICARE ADV HMO/PPO/PFFS [id number] Effective for all dates [address] [place] [address] Medicare -Managed Care SELF PAY NO INSURANCE SELF PAY NO INSURANCE Effective for all dates [place] Self [place] AETNA MEDICARE ADV AETNA MEDICARE ADV HMO/PPO/PFFS [id number] Effective for all dates [address] [place] [address] Medicare -Managed Care SELF PAY NO INSURANCE SELF PAY NO INSURANCE Effective for all dates [place] Self [place] AETNA MEDICARE ADV AETNA MEDICARE ADV HMO/PPO/PFFS [id number] Effective for all dates [address] [place] [address] Medicare -Managed Care SELF PAY NO INSURANCE SELF PAY NO INSURANCE Effective for all dates [place] Self Pay C MANAGED MEDICARE ADV [facility] COMPLETE CHOICE MEDICARE ADV PPO [id number] 11/01/2020-Prese [address] [address] [place] [address] Medicare -Managed Care Care Teams Packing House Laborer Relationship Specialty Start Date End Date Roberto Saleem MD [address] [place] [address] PCP - General 12/25/10
== END 2025-01-17 09:46 | disposition home or self-care (01) ==
LOC: ANHIMG 09:45
PROVIDERS: Visit Provider Internal Medicine
DX: R50.9 Fever, unspecified (principal); R10.9 Unspecified abdominal pain; R14.0 Abdominal distension (gaseous)
CPT/HCPCS: 74018; 76700

== ENCOUNTER 2025-01-19 10:19 | Emergency (ER) | payer MEDICARE, SELFPAY ==
[2025-01-19] VITALS (7 sets, daily range): BP systolic 100–132; BP diastolic 53–63; PULSE 66–81; RESP 14–20; TEMP 36.6–36.8; O2SAT 95–100
--- NOTE | ~2025-01-19 | XR_ITS ---
Portable chest x-ray Comparison: 01/25/2024 Clinical History: CVA Findings: Lungs are clear, without focal consolidation or pleural effusion. Cardiomediastinal silho uette is stable. Bones and soft tissues are unremarkable. Impression: Normal chest. Reviewed, dictated and finalized at [facility]. Impression: Normal chest.
--- NOTE | ~2025-01-19 | CT_ITS ---
CT head without contrast Indication: Altered mental status Technique: Serial scans were obtained through the brain without the administration of contrast. Dose reduction technique was used on this scan by utilizing automated exposure control and iterative recon struction technique. The dose-length product (DLP) was 756.67 mGy-cm. Findings: There is no evidence of intracranial hemorrhage, mass lesion, or acute infarct. The ventri cles and subarachnoid spaces are dilated, consistent with mild atrophy. Low attenuation regions are seen within the periventricular white matter bilaterally, likely representing changes from chronic mi crovascular ischemic disease. There is no evidence of edema, mass effect or midline shift. The visu alized paranasal sinuses and mastoid air cells are clear. Impression: No intracranial hemorrhage, mass, or acute infarct. Atrophy and chronic white matter changes, as above. Reviewed, dictated and finalized at location . Impression: No intracranial hemorrhage, mass, or acute infarct. Atrophy and chronic white matter changes, as above.
--- OUTSIDE RECORDS SUMMARY | 2025-01-19 11:24 | XMS_ITS | Clinical Summary ---
Author Organization [facility] Address [address] [place] [address] Care Team Providers Care Snow Technician Name Role Phone Roberto Saleem MD Primary Care Provider Allergies Active Allergy Reactions Criticality Noted Date [...] Gel AndroGel Active Lancets (ONETOUCH DELICA PLUS [id number]) [facility] OneTouch Delica Plus Lancet 30 gauge Active Blood Glucose Monitoring Suppl (ONETOUCH PING METER REMOTE) Supplies [facility] [employer] Verio Flex Meter Active betamethasone dipropionate 0.05 [...] complete this topic Insurance [employer] Care Teams Snow Technician Relationship Specialty Start Date End Date Roberto Saleem MD [address] [place] [id number] PCP - General INTERNAL MEDICINE 02/17/22
--- OUTSIDE RECORDS SUMMARY | 2025-01-19 11:24 | XMS_ITS | Referral Summary ---
Author Organization [facility] Address [address] [place] [address] Care Team Providers Care Machine Cage Maker Name Role Phone Nomi Moore MD PhD Unavailable [phone] Roberto Saleem MD Primary Care Provider [phone] Spencer Fulton MD Unavailable [phone] Allergies Active Allergy Reactions Criticality Noted Date Comments Lisinopril Cough Low 10/21/2021 Morphine Itching Medium 10/21/2021 Oxycodone Mental status changes,Delusions Medium 04/2024 Medications hydroCHLOROthiazid e (HYDRODIURIL) 25 mg tablet Take 1 tablet (25 mg total) by mouth every morning Active levothyroxine (SYNTHROID) 100 mcg tablet Take 1 tablet (100 mcg total) by mouth intermediate project manager before breakfast Active carvedilol (COREG) 25 [...] tablet by mouth every morning Active omega 8-drd-kvp-fish oil 1,000 mg (120 mg-180 mg) capsule [...] 09/27/2018 Assessment & Plan (10/20/2022 1:03 PM SANITATION TRUCK DRIVER): Patient seen today for 1 year routine [...] artery disease 11/01/2004 Overview (10/31/2019): stent placed [facility] by Dr. Tompkins Immunizations Immunization Administration Dates [...] on file Legal Sex Male 12:37 PM SANITATION TRUCK DRIVER Gender Identity Male 02/02/2022 11:05 AM CDT Sexual Orientation Straight 02/02/2022 11 :05 AM CDT Last Filed Vital Signs Vital Sign Reading Time Taken Comments Blood Pressure 137/65 10/07/2024 8:35 AM SANITATION TRUCK DRIVER Pulse 84 10/07/2024 8:35 AM SANITATION TRUCK DRIVER Temperature 36.6 C (97.9 F) 10/07/2024 8:35 AM SANITATION TRUCK DRIVER Respiratory Rate 18 10/07/2024 8:35 AM SANITATION TRUCK DRIVER Oxygen Saturation 98% 10/07/2024 8:35 AM SANITATION TRUCK DRIVER Inhaled Oxygen Concentration - - Weight 124.7 kg (274 lb 14.6 oz) 10/06/2024 8:55 AM SANITATION TRUCK DRIVER Height 180.3 cm (5' 10.98 ) 10/06/2024 8:55 AM C Body Mass Index 38.36 10/06/2024 8:55 AM SANITATION TRUCK DRIVER Plan of Treatment Not on file Medical Devices Implanted Type Area Cytology Teacher Device Identifier Shelf Expiration Date Model / Serial / Lot Total Hip Bilatera l: Hip [employer] Triathlon Tritanium Knee 7 Baseplate Tibial 5536-B-700 - [id number] Implanted:Qty: 1 on 01/20/2024 by Spencer Fulton MD at [facility] Right: Knee [employer] [id number] 09/27/2028 5536-B-70 0 / / [id number] [employer] Triathlon Cruciate Retain Bead Knee Right 7 Component Femoral Pa 5517-F-702 - [id number] Implanted:Qty: 1 on 01/20/2024 by Spencer Fulton MD at [facility] Right: Knee [employer] [id number] 11/04/2027 5517-F-70 2 / / [id number] [employer] Tritanium 38mm 11mm Asymmetric Knee Component Patellar Metal 5552-L-381 - [id number] Implanted:Qty: 1 on 01/20/2024 by Spencer Fulton MD at [facility] Right: Knee [employer] [id number] 12/11/2025 5552-L-38 1 / / [id number] [employer] Insert Tibial Triathlon 7 H9mm Knee Bearing Condylar Stabilize Sterile 0950-J-891-E - [id number] Implanted:Qty: 1 on 01/20/2024 by Spencer Fulton MD at [facility] Right: Knee [employer] [id number] 08/14/2028 5531-G-70 9-E / / [id number] [employer] Tritanium 38mm 11mm Asymmetric Knee Component Patellar Metal 5552-L-381 - [id number] Implanted:Qty: 1 on 10/06/2024 by Spencer Fulton MD at [facility] Left: Knee [employer] [id number] 07/16/2029 5552-L-38 1 / / [id number] [employer] Triathlon Cruciate Retain Bead Knee Left 8 Component Femoral Pa 5517-F-801 - [id number] Implanted:Qty: 1 on 10/06/2024 by Spencer Fulton MD at [facility] Left: Knee [employer] [id number] 07/15/2027 5517-F-80 1 / / [id number] [employer] Insert Tibial Triathlon 7 H10mm Knee Bearing Condylar Stabilize Sterile 4119-S-354-E - [id number] Implanted:Qty: 1 on 10/06/2024 by Spencer Fulton MD at [facility] Left: Knee [employer] [id number] 05/18/2029 5531-G-71 0-E / / [id number] [employer] Triathlon Tritanium Knee 7 Baseplate Tibial 5536-B-700 - [id number] Implanted:Qty: 1 on 10/06/2024 by Spencer Fulton MD at [facility] Left: Knee [employer] [id number] 07/27/2029 5536-B-70 0 / / [id number] Procedures Procedure Name Priority Date/Time Associated Diagnosis Comments EGFR Routine 08/24/2024 11:09 AM CDT Preop testing HEMOGLOBIN A1C Routine 08/24/2024 11:09 AM CDT Preop testing LIPID PANEL Routine 11/01/2019 4:44 AM SANITATION TRUCK DRIVER from Last 3 Months or Most Recently [...] RUBIO LAB BLOOD ORDERABLES Fin al Result [facility] [address] Department [place] [address] * (ABNORMAL) Hemoglobin A1c (08/24/2024 11:09 AM CDT) Hgb A1C 7.0(H) 4.0 - 5.6 % Estimated Average Glucose 154 mg/dL [facility] Comment: The ADA recommends reporting an estimated Average Glucose (eAG) with all Hemoglobin A1c results using the equation derived from a study of 507 normal and diabetic adults. Minority populations were underrepresented and children were not included. (Diabetes Care 31:3727-7860, 2008). The eAG is not equivalent to a fasting glucose. Blood 08/24/2024 11:0 9 AM CDT 08/24/2024 11:09 AM CDT us Tabby RUBIO LAB BLOOD ORDERABLES Fin al Result [facility] [address] Department [place] [address] * (ABNORMAL) Lipid panel (11/01/2019 4:44 AM SANITATION TRUCK DRIVER) Cholesterol 127 30 - 199 mg/dL [facility] Comment: Interpretive Data Ages < [...] revised on 2018. Triglycerides 250(H) <=149 mg/dL [facility] Comment: Interpretive Data Ages < [...] revised on 2018. HDL 33(L) >=40 mg/dL [facility] Comment: Interpretive Data Ages < [...] on 2018. LDL, calculated 44 <=129 mg/dL [facility] Comment: Interpretive Data Ages < [...] revised on 2018. Non-HDL Cholesterol 94 mg/dL [facility] Comment: Interpretive Data Ages < [...] last revised on 2018. Chol/HDL ratio 4 [facility] Blood specimen (specimen) 11/01/2019 4:44 AM SANITATION TRUCK DRIVER 11/01/2019 5:17 AM SANITATION TRUCK DRIVER Kenzie Amaya MD LAB BLOOD ORDERABLES Final Result [facility] [address] Department [place] [address] from Last 3 Months or Most Recently Relevant to Health Maintenance Insurance [facility] MEDICARE ADVANTAGE [facility] MEDICARE [facility] MEDICARE [employer] MEDICARE ADVANTAGE [facility] MEDICARE Advance Directives For more information, please contact: [phone] Documents on File Type Date Recorded Patient Scrap Hoist Operator Expl anation ADVANCE DIRECTIVE 01/25/2024 2:02 AM POWER OF DIRECTOR SKILLS-MEDICAL * Full Code (Latest Code Status on File) Date Activated Date Inactivated Comments 10/06/2024 6:40 PM 10/07/2024 3:38 PM * Full Code Date Activated Date Inactivated Comments 01/20/2024 12:53 PM 01/21/2024 4:25 PM * Full Code Date Activated Date Inactivated Comments 10/31/2019 7:01 PM 11/01/2019 6:11 PM Care Teams Machine Cage Maker Relationship Specialty Start Date End Date Roberto Saleem MD [address] [place] [address] PCP - General 10/31/19 Nomi Moore MD PhD [address] [facility] [address] [place] [address] Consulting Physician Neurology 11/01/19 Spencer Fulton MD [address] [address] Consulting Physician Orthopedic Surgery 10/26/23
--- OUTSIDE RECORDS SUMMARY | 2025-01-19 11:24 | XMS_ITS | Data Portability ---
Author Organization [place] [facility], Main Office Address [address] [place] [address] Assessment Encounter Date Assessment Date Assessment LastModified [...] DO Not Attach Compendium, Do Not Delete/merge, [id number] 3 14:13:11 injection/a spiration joint/bursa (PROC) - in office procedure, administere d by provider 2022 023 [email or web address] In-Office Order, Internal Use Only DO Not Attach Compendium DO Not Attach Compendium, Do Not Delete/merge, 97468 3 09:40:43 injection/a spiration joint/bursa (PROC) - in office procedure, administere d by provider 2022 023 [email or web address] In-Office Order, Internal Use Only DO Not Attach Compendium DO Not Attach Compendium, Do Not Delete/merge, 24553 3 08:57:06 injection/a spiration joint/bursa (PROC) - in office procedure, administere d by provider 2022 023 [email or web address] In-Office Order, Internal Use Only DO Not Attach Compendium DO Not Attach Compendium, Do Not Delete/merge, 38871 3 09:27:11 Surgeries None recorded. Imaging XR, knee 2022 023 [email or web address] [facility] [place], [address], [place], [address], 3 10:00:08 XR, hand, 3 or more view 2022 023 [email or web address] [facility] [place], [address], [place], [address], 3 09:55:58 Medication Orders bupivacaine HCl 0.5 % (5 mg/mL) injection solution 2022 023 [facility]046[facility], [address] [place] [address], [id number], 3 15:17:55 Kenalog 10 mg/mL suspension for injection 2022 023 [email or web address] [address] [facility] #69623, [address] [place] [address], [id number], 3 15:17:55 Kenalog 10 mg/mL suspension for injection 2022 023 [facility] #97962, [address] [place] [address], [id number], 3 09:55:28 ropivacaine (PF) 5 mg/mL (0.5 %) injection solution 2022 023 [facility], [address] [place] [address], [id number], 3 09:55:28 Kenalog 10 mg/mL suspension for injection 2022 023 [facility] #16600, [address] [place] [address], [id number], 3 09:07:20 ropivacaine (PF) 5 mg/mL (0.5 %) injection solution [address] [facility]43152, [address] [place] [address], [id number], 3 09:07:20 Kenalog 10 mg/mL suspension for injection [address] [facility] #40771, [address] [facility] [address] [facility], [place], [place], [id number], 3 09:53:52 ropivacaine (PF) 5 mg/mL (0.5 %) injection solution [address] [facility] #83772, [address] [facility] [address] [place] [address], [id number], 3 09:53:52 Patient TargetsNo targets recorded. Patient InstructionsNo instructions recorded. Reason for Referral None Reported. Results Created Date Observation Date Name Description Value Unit Range Abnormal Flag Note LastModifiedBy Organization Detail LastModifiedTime 11/30/19 23 XR, foot, 3 or more view No observ ation record ed. [id number] [facility] [place] [address], [place], [address], 12/30/2022 13:53:28 02/12/20 23 XR, hand, 3 or more view No observ ation record ed. [facility] [place] [address], [place], [address], 02/11/2023 09:52:08 07/08/20 23 XR, knee No observ ation record ed. [facility] [place] [address], [place], [address], 07/08/2023 09:55:03 Result Notes None recorded. Problems Name Problem SNOMED Code Status Onset Date Resolution Date Notes Provider Name and Address Organization Details Recorded Time Trigger finger of right hand 1643245340864 9101 Active 2021 Not Available [facility] 3 13:51:57 Radiothera py follow-up 741450869 Active Not Available [facility] 3 13:51:57 Localized, primary osteoarthr itis of the ankle and/or foot Active 2022 Not Available [facility] 3 13:51:58 Localized, primary osteoarthr itis of the ankle and/or foot 045562581 Active 2022 Not Available [facility] 3 13:51:58 Osteoarthr itis of hip 903273605 Active Not Available [facility] 3 13:51:58 Low back pain 083141460 Active Not Available [facility] 3 13:51:58 Current tear of medial cartilage AND/OR meniscus of knee Active Not Available [facility] 3 13:51:58 Knee pain Active Not Available [facility] 3 13:51:58 Knee pain Active 2019 Not Available [facility] 3 13:51:58 Pain of left hand 8529605889921 03 Active 2021 Not Available [facility] 3 13:51:58 Osteoarthr itis 099732150 Active Not Available [facility] 3 13:51:58 Pain of bilateral knee joints 5529050783281 04 Active 2021 Not Available [facility] 3 13:51:58 Derangemen t of knee 42602034 Active Not Available [facility] 3 13:51:58 Pain in left foot 1972137493955 07 Active 2022 VIRGIE Rincon null, [place] [facility] [place] [employer] [facility] 3 09:24:30 Acquired trigger finger of left ring finger 2455023202753 09 Active 2022 [facility]brook [facility] [address], [place], [address] , [place] [facility] [employer] 09:51:01 Problem Notes None recorded. Procedures Surgical History Date Name Laterality Status Provider Name and Address Organization Details Recorded Time hip joint reconstruction completed Not Available [facility] 12/30/2022 13:51:43 Knee completed VIRGIE Rincon [place] [facility] [employer] 02/11/2023 09:23:41 Imaging Results Imaging Date Name Status LastModified by Organiz ation Details LastModified Time 11/30/2022 XR, foot, 3 or more view completed [id number] [facility] [place] [address] [facility] [address], [place], [address], 12/30/2022 13:53:28 02/11/2023 XR, hand, 3 or more view completed [facility] [place] [address] [facility] [address], [place], [address], 02/11/2023 09:52:08 07/08/2023 XR, knee completed [facility] [place] [address] [facility] [address], [place], [address], 07/08/2023 09:55:03 Procedure Notes None recorded. Medical Equipment None Reported. Allergies Allergen ID Allergen Name Allergen Category Reaction Reaction Severity Criticality Documentation Date Start Date Code Code System Note Provider Name and Address Organization Details Recorded Time 67151 morphine medicatio n itching Not available Not available 12/30/2022 7052 RxNorm Not Available [facility] 13:53:27 09298 Product containin g angiotens in-conver ting enzyme inhibitor (product) medicatio n cough Not available Not available 12/30/2022 06105 009 SNOMED Not Available [facility] 13:53:27 Medications Name Sig Start Date Stop [...] mg by injectio n route. 2022 active [facility]: 0003-049 02-18 Not Available Not Available Not [...] the office by the doctor 03/25 completed [facility]: [id number] 001 Not Available Not Available Not Available [...] administ ered by the provider 11/25 completed [facility]: 0409-427 6 Not Available Not Available Not [...] mg by injectio n route. 2022 active [facility] 93516-39 4- Not Available Not Available Not Available [...] Available Not Available No t Available Fluvirin 4315-9946 45 mcg (15 mcg x 3)/0.5 mL [...] Updated DateTime 11/30/2022 39.7 kg/m2 180.34 cm 187001.83 g Not Available [employer] 12/30/2022 13:51:51 Date Recorded Body height Body mass index (BMI) Body weight Provider Name and Address Organization Details Last Updated DateTime 02/11/2023 180.34 cm 25.1 kg/m2 22197.63 g Jaimie Eatondeisy [facility] [employer] [facility] [employer] 02/11/2023 09:20:14 Date Recorded Body height Body mass index (BMI) Body weight Provider Name and Address Organization Details Last Updated DateTime 03/04/2023 180.34 cm 39.7 kg/m2 955977.83 g Jeffreyesmemaria EatonStef, [facility] [employer] [facility] [employer] 03/04/2023 08:55:37 Date Recorded Body height Body mass index (BMI) Body weight Provider Name and Address Organization Details Last Updated DateTime 07/08/2023 180.34 cm 39.7 kg/m2 934153.83 g Samantha Guillermobranden [facility] [employer] [facility] [employer] 07/08/2023 09:39:05 Date Recorded Body height Body mass index (BMI) Body weight Provider Name and Address Organization Details Last Updated DateTime 10/14/2023 180.34 cm 39.1 kg/m2 341465.86 g Samantha Frank [facility] [employer] [facility] [employer] 10/14/2023 14:08:11 Social History Question Answer Notes LastModified by Organizat ion Details LastModified Time Tobacco Smoking Status Former Smoker Jadyn mitchell, [facility] [employer] 03/04/2023 08:54:32 What Is Your Level Of Alcohol Consumption? Occasional [email or web address] Information not available 02/11/2023 Sex: Unknown Functional Status None recorded. Mental Status None recorded. Family History Relationship Description Onset Age of this Age Resolved Age Notes LastModified by Organization Details LastModified Time Father Family history of malignant neoplasm [email or web address] Not available 10/14 14:06:34 Father History of hypertension [email or web address] Not available 14:06:34 Father Kidney disease [email or web address] Not available 2022 09:23:18 Unspecified Relation Heart disease [id number] Not available 12/30/2022 13:51:44 Unspecified Relation Diabetes mellitus [id number] Not available 12/30/2022 13:51:44 Mother History of [...] HAVE YOU BEEN HOSPITALIZED OR SEEN IN [facility] IN THE PAST YEAR ? [...] SNOMED-CT Code Diagnosis ICD10 Code Diagnosis Note [id number] [facility] [place] [address] [place] [address] 03/25/2021 00:00:00 03/25/2021 16:09:26 [id number] [facility] [place] [address] [place] [address] 09/08/2021 00:00:00 09/08/2021 10:17:23 [id number] [facility] [place] [address] [place] [address] 11/25/2021 00:00:00 11/25/2021 16:06:41 [id number] [facility] [place] [address] [place] [address] 01/07/2022 00:00:00 01/07/2022 14:47:48 [id number] [facility] [place] [address] [place] [address] 04/28/2022 00:00:00 04/28/2022 17:04:01 [id number] [facility] [place] [address] [place] [address] 08/11/2022 00:00:00 08/11/2022 15:35:35 [id number] [facility] [place] [address] [place] [address] 11/30/2022 00:00:00 11/30/2022 09:53:23 [id number] JOANNE Holbrook [facility] [place] 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 [place] [address] 03/04/2023 08:53:29 03/04/2023 09:03:57 Osteoarthritis 927179504 M17.0 Pain of bi lateral knee joints 3894032974 76061 M25.561 M25.562 Pain of left hand 090704 3201 01574 M79.642 Localized, primary osteoarthritis of the ankle and/or foot 123151535 M19.072 Pain in left foot 571566 3329 56711 M79.672 Acquired t hybrid powertrain development engineer finger of left ring finger 7875270874 51271 M65.086 [id number] JOANNE Holbrook [facility] [place] [address] [place] [address] 07/08/2023 09:36:52 07/08/2023 10:00:07 Pain of bilateral knee joints 1546437777 54848 M25.561 M25.562 Osteoarthritis 698003848 M17.0 [id number] JOANNE Holbrook [facility] [place] [address] [place] [address] 10/14/2023 14:05:54 10/14/2023 14:48:05 Pain of bilateral knee joints 5829772873 92722 M25.561 M25.562 Osteoarthritis 740939162 M17.0 Health Concerns Section Related Observation LastModified by Organization Detai ls LastModified Time None Recorded Concern Status LastModified by Organization Details LastModified Time None Recorded Advance Directives Directive None Recorded Payers Encounter Date Sequence Insurance Name Policy Number Policy Hernandez Covered Member ID Hernandez Member ID Guarantor Name 02/11/2023 1 [employer] (MEDICARE REPLACEMENT PPO) [id number] 1 Reynold P Rydgig [id number] Reynold P Rydgig 03/04/2023 1 [employer] (MEDICARE REPLACEMENT PPO) [id number] Reynold P Rydgig [id number] Reynold P Rydgig 07/08/2023 1 [employer] (MEDICARE REPLACEMENT PPO) [id number] Reynold P Rydgig [id number] Reynold P Rydgig 10/14/2023 1 [employer] (MEDICARE REPLACEMENT PPO) [id number] 1 Reynold P Rydgig [id number] Reynold P Rydgig Notes Date Note Type [...] JOANNE Holbrook [address], [address], [place], [address], [email or web address] 02/11/2023 09:52:32 03/04/2023 text/html Patient returns complaining of bilateral knee pain right worse left. He has chronic advanced primary osteoarthritis with significant narrowing in the medial and patellofemoral compartments which are ccto-xu-tiau. He gets by with cortisone injections it has been about 3 months since his last injections he would like to repeat these today they do work well for him allow to get out by golf etc.. Today denies any new symptoms no new trauma or injury to either knee. JOANNE Holbrook [address], [place], [address], [email or web address] 03/04/2023 09:09:40 07/08/2023 text/html Patient returns requesting bilateral knee injections. He comes in every few months it has been 4 months since his last injections. They gave him good relief. He has advanced chronic primary osteoarthritis with significant narrowing in the medial and patellofemoral compartments which are baiq-sp-wjwz. He is not interested in total knee arthroplasty at this time we have talked about it previously. Denies any new trauma injury no erythema heat effusion or signs of infection in either knee. JOANNE Holbrook [address], [place], [address], [facility] [employer] [facility] 07/08/2023 09:55:23 10/14/2023 text/html Patient returns for bilateral knee injections he has severe primary osteoarthritis in the patellofemoral articulations which are aldd-fw-plhe bilaterally and also in the right medial [...] this time. JOANNE Holbrook [address] [facility] [address], [place], [address], [facility] [employer] [facility] [employer] [facility] 10/14/2023 14:36:49
--- OUTSIDE RECORDS SUMMARY | 2025-01-19 11:24 | XMS_ITS | Clinical Summary ---
Author Organization [facility] Address [address] [facility] [place] [address] Care Team Providers Care Gear Roller Name Role Phone Roberto Saleem MD Primary Care Provider [phone] Source Comments [facility] Affiliates and Associated Physician Practices is amultiple site organization consisting of ambulatory clinics and hospital sitesin [place], [place], [place] and [place]. This disclosure is being madepursuant to the Care Everywhere program and may not contain all information available regarding this patient. Last updated 18.[facility] [employer] Social History Tobacco Use Types Packs/Day Years Used Date Smoking Tobacco: Never Assessed Sex and Gender Information Value Date Recorded Sex Assigned at Not on file Gender Identity Not on file Sexual Orientation Not on file Last Filed Vital Signs Vital Sign Reading Time Taken Comments Blood Pressure 152/80 11/09/2013 9:56 AM CERTIFIED PROFESSIONAL ERGONOMIST Pulse 61 11/09/2013 9:56 AM CERTIFIED PROFESSIONAL ERGONOMIST Temperature - - Respiratory Rate 18 11/09/2013 9:56 AM CERTIFIED PROFESSIONAL ERGONOMIST Oxygen Saturation - - Inhaled Oxygen Concentration - - Weight 142.9 kg (315 lb) 11/09/2013 9:56 AM CERTIFIED PROFESSIONAL ERGONOMIST Height - - Body Mass Index - [...] AETNA MEDICARE ADV AETNA MEDICARE ADV HMO/PPO/PFFS [id number] Effective for all dates [address] [place] [address] Medicare -Managed Care SELF PAY NO INSURANCE SELF PAY NO INSURANCE Effective for all dates [place] Self Pay AETNA MEDICARE ADV AETNA MEDICARE ADV HMO/PPO/PFFS [id number] Effective for all dates [address] [place] [address] Medicare -Managed Care SELF PAY NO INSURANCE SELF PAY NO INSURANCE Effective for all dates [place] Pay AETNA MEDICARE ADV AETNA MEDICARE ADV HMO/PPO/PFFS [id number] Effective for all dates [address] [place] [address] Medicare -Managed Care SELF PAY NO INSURANCE SELF PAY NO INSURANCE Effective for all dates [place] Self Pay AETNA MEDICARE ADV AETNA MEDICARE ADV HMO/PPO/PFFS [id number] Effective for all dates [address] [place] [address] Medicare -Managed Care SELF PAY NO INSURANCE SELF PAY NO INSURANCE Effective for all dates [place] Self Pay AETNA MEDICARE ADV AETNA MEDICARE ADV HMO/PPO/PFFS [id number] Effective for all dates [address] [place] [address] Medicare -Managed Care SELF PAY NO INSURANCE SELF PAY NO INSURANCE Effective for all dates [place] Self Pay AETNA MEDICARE ADV AETNA MEDICARE ADV HMO/PPO/PFFS [id number] Effective for all dates [address] [place] [address] Medicare -Managed Care SELF PAY NO INSURANCE SELF PAY NO INSURANCE Effective for all dates [place] Self Pay C MANAGED MEDICARE ADV [place] COMPLETE CHOICE MEDICARE ADV PPO [id number] 11/01/2020-Prese [address] [address] [place] [address] Medicare -Managed Care Care Teams Gear Roller Relationship Specialty Start Date End Date Roberto Saleem MD [address] [place] [address] PCP - General 12/25/10
--- OUTSIDE RECORDS SUMMARY | 2025-01-19 11:24 | XMS_ITS | Clinical Summary ---
Author Organization [facility] Address [address] [place] [address] Care Team Providers Care Plumbing Inspector Name Role Phone Nomi Moore MD PhD Unavailable [phone] Roberto Saleem MD Primary Care Provider [phone] Spencer Fulton MD Unavailable [phone] Allergies Active Allergy Reactions Criticality Noted Date Comments Lisinopril Cough Low 10/21/2021 Morphine Itching Medium 10/21/2021 Oxycodone Mental status changes,Delusions Medium 04/2024 Medications hydroCHLOROthiazid e (HYDRODIURIL) 25 mg tablet Take 1 tablet (25 mg total) by mouth every morning Active levothyroxine (SYNTHROID) 100 mcg tablet Take 1 tablet (100 mcg total) by mouth golf cart maker before breakfast Active carvedilol (COREG) 25 mg [...] tablet by mouth every morning Active omega 6-omt-iwt-fish oil 1,000 mg (120 mg-180 mg) capsule [...] 09/27/2018 Assessment & Plan (10/20/2022 1:03 PM CONCRETE LABORER): Patient seen today for 1 year routine [...] artery disease 11/01/2004 Overview (10/31/2019): stent placed [facility] by Dr. Tompkins Immunizations Immunization Administration Dates [...] Coronary artery disease [address] a[address] [place] by Dr. Tompkins Cataract Hyperlipidemia Gout Sleep [...] on file Legal Sex Male 12:37 PM CONCRETE LABORER Gender Identity Male 02/02/2022 11:05 AM CDT Sexual Orientation Straight 02/02/2022 11 :05 AM CDT Obstetrics History Last Filed Vital Signs Vital Sign Reading Time Taken Comments Blood Pressure 137/65 10/07/2024 8:35 AM CONCRETE LABORER Pulse 84 10/07/2024 8:35 AM CONCRETE LABORER Temperature 36.6 C (97.9 F) 10/07/2024 8:35 AM CONCRETE LABORER Respiratory Rate 18 10/07/2024 8:35 AM CONCRETE LABORER Oxygen Saturation 98% 10/07/2024 8:35 AM CONCRETE LABORER Inhaled Oxygen Concentration - - Weight 124.7 kg (274 lb 14.6 oz) 10/06/2024 8:55 AM CONCRETE LABORER Height 180.3 cm (5' 10.98 ) 10/06/2024 8:[address] Body Mass Index 38.36 10/06/2024 8:55 AM CONCRETE LABORER Plan of Treatment Health Maintenance Due Date [...] 08/05/2018, 10/01/2009 Medical Devices Implanted Type Area Knife Cutter Device Identifier Shelf Expiration Date Model / Serial / Lot Total Hip Bilatera l: Hip [employer] Triathlon Tritanium Knee 7 Baseplate Tibial 5536-B-700 - [id number] Implanted:Qty: 1 on 01/20/2024 by Spencer Fulton MD at [facility] Right: Knee [employer] [id number] 09/27/2028 5536-B-70 0 / / [id number] [employer] Triathlon Cruciate Retain Bead Knee Right 7 Component Femoral Pa 5517-F-702 - [id number] Implanted:Qty: 1 on 01/20/2024 by Spencer Fulton MD at [facility] Right: Knee [employer] [id number] 11/04/2027 5517-F-70 2 / / [id number] [employer] Tritanium 38mm 11mm Asymmetric Knee Component Patellar Metal 5552-L-381 - [id number] Implanted:Qty: 1 on 01/20/2024 by Spencer Fulton MD at [facility] Right: Knee [employer] [id number] 12/11/2025 5552-L-38 1 / / [id number] [employer] Insert Tibial Triathlon 7 H9mm Knee Bearing Condylar Stabilize Sterile 5517-A-050-E - [id number] Implanted:Qty: 1 on 01/20/2024 by Spencer Fulton MD at [facility] Right: Knee [employer] [id number] 08/14/2028 5531-G-70 9-E / / [id number] [employer] Tritanium 38mm 11mm Asymmetric Knee Component Patellar Metal 5552-L-381 - [id number] Implanted:Qty: 1 on 10/06/2024 by Spencer Fulton MD at [facility] Left: Knee [employer] [id number] 07/16/2029 5552-L-38 1 / / [id number] [employer] Triathlon Cruciate Retain Bead Knee Left 8 Component Femoral Pa 5517-F-801 - [id number] Implanted:Qty: 1 on 10/06/2024 by Spencer Fulton MD at [facility] Left: Knee [employer] [id number] 07/15/2027 5517-F-80 1 / / [id number] [employer] Insert Tibial Triathlon 7 H10mm Knee Bearing Condylar Stabilize Sterile 5537-F-154-E - [id number] Implanted:Qty: 1 on 10/06/2024 by Spencer Fulton MD at [facility] Left: Knee [employer] [id number] 05/18/2029 5531-G-71 0-E / / [id number] [employer] Triathlon Tritanium Knee 7 Baseplate Tibial 5536-B-700 - [id number] Implanted:Qty: 1 on 10/06/2024 by Spencer Fulton MD at [facility] Left: Knee [employer] [id number] 07/27/2029 5536-B-70 0 / / [id number] Procedures Procedure Name Priority Date/Time Associated Diagnosis Comments EGFR Routine 08/24/2024 11:09 AM CDT Preop testing HEMOGLOBIN A1C Routine 08/24/2024 11:09 AM CDT Preop testing LIPID PANEL Routine 11/01/2019 4:44 AM CONCRETE LABORER from Last 3 Months or Most Recently [...] ORDERABLES Fin al Result Performing Organization Address City/[facility]/ZIP Co de Phone Number [facility] [address] Department of Laboratories [place], [place] [id number] * (ABNORMAL) Hemoglobin A1c (08/24/2024 11:09 AM CDT) Hgb A1C 7.0(H) 4.0 - 5.6 % Estimated Average Glucose 154 mg/dL [facility] Comment: The ADA recommends reporting an estimated Average Glucose (eAG) with all Hemoglobin A1c results using the equation derived from a study of 507 normal and diabetic adults. Minority populations were underrepresented and children were not included. (Diabetes Care 31:9859-2871, 2008). The eAG is not equivalent to a fasting glucose. Blood 08/24/2024 11:0 9 AM CDT 08/24/2024 11:09 AM CDT Tabby RUBIO LAB BLOOD ORDERABLES Fin al Result Performing Organization Address City/[facility]/ZIP Co de Phone Number [facility] [address] Department [place] [address] * (ABNORMAL) Lipid panel (11/01/2019 4:44 AM CONCRETE LABORER) Cholesterol 127 30 - 199 mg/dL [facility] Comment: Interpretive Data Ages < [...] revised on 2018. Triglycerides 250(H) <=149 mg/dL [facility] Comment: Interpretive Data Ages < [...] revised on 2018. HDL 33(L) >=40 mg/dL [facility] Comment: Interpretive Data Ages < [...] on 2018. LDL, calculated 44 <=129 mg/dL [facility] Comment: Interpretive Data Ages < [...] revised on 2018. Non-HDL Cholesterol 94 mg/dL [facility] Comment: Interpretive Data Ages < [...] last revised on 2018. Chol/HDL ratio 4 [facility] Blood specimen (specimen) 11/01/2019 4:44 AM CONCRETE LABORER 11/01/2019 5:17 AM CONCRETE LABORER us Kenzie Amyaa MD LAB BLOOD ORDERABLES Final Result [facility] [address] Department [place] [address] from Last 3 Months or Most Recently Relevant to Health Maintenance Insurance [facility] MEDICARE ADVANTAGE [facility] MEDIC[facility] Address: [address] [address] [place] [address] [facility] MEDICARE [facility] MEDICARE UHC MEDICARE ADVANTAGE [facility] MEDIC[facility] Address: [address] [address] [place] [address] [facility] MEDICARE Advance Directives For more information, please contact: [phone] Documents on File Type Date Recorded Patient Cable Assembler And Swager Expl anation ADVANCE DIRECTIVE 01/25/2024 2:02 AM POWER OF MICROFILM DUPLICATING UNIT SUPERVISOR-MEDICAL * Full Code (Latest Code Status on File) Date Activated Date Inactivated Comments 10/06/2024 6:40 PM 10/07/2024 3:38 PM * Full Code Date Activated Date Inactivated Comments 01/20/2024 12:53 PM 01/21/2024 4:25 PM * Full Code Date Activated Date Inactivated Comments 10/31/2019 7:01 PM 11/01/2019 6:11 PM Care Teams Plumbing Inspector Relationship Specialty Start Date End Date Roberto Saleem MD [address] [place] [address] PCP - General 10/31/19 Nomi Moore MD PhD [address] [facility] [address] [place] [address] Consulting Physician Neurology 11/01/19 Spencer Fulton MD [address] [address] Consulting Physician Orthopedic Surgery 10/26/23
[2025-01-19 11:56] LABS: Glucose Point of Care 261 mg/dl (65-105)
[2025-01-19 12:01] LABS: Basophils Percent Auto 0.2 % (0.2-1.2); Eosinophils Absolute Auto 0.1 K/mm3 (0-0.3); Eosinophils Percent Auto 0.5 % (0-4.4); Hematocrit 38.4 % (42.0-52.0); Hemoglobin 12.6 g/dL (14.0-18.0); Immature Granulocyte Absolute 0.05 K/mm3 (0.00-0.031); Immature Granulocyte Percent A 0.5 % (0-0.5); Immature Platelet Fraction Pct 3.6 % (0.9-11.2); Lymphocytes Absolute Auto 0.51 K/mm3 (0.9-3.2); Lymphocytes Percent Auto 5.4 % (18.3-44.2); Mean Corpuscular HGB Conc 32.8 g/dl (32-36); Mean Corpuscular Hemoglobin 30.5 pg (26-34); Mean Platelet Volume 10.3 fl (7.4-10.4); Monocytes Absolute Auto 1.3 K/mm3 (0.1-0.6); Monocytes Percent Auto 13.4 % (2.6-8.5); Neutrophils Absolute Auto 7.6 K/mm3 (1.3-6.7); Platelet Count Result 118 k/mm3 (150-375); Red Blood Count 4.13 M/mm3 (4.6-6.20); Red Cell Distribution Width 15.1 % (11.5-14.5); White Blood Count 9.5 K/mm3 (4.5-10.0)
[2025-01-19 12:11] LABS: Add Urine Microscopic? YES; Appearance Urine Cloudy (Clear); Bacteria Urine None Seen /hpf; Bilirubin Urine Negative (Negative); Blood Urine Negative (Negative); Color Urine Yellow (Yellow); Glucose Urine UA 3+ mg/dL (Negative); Ketones Urine Negative (Negative); Leukocyte Esterase Ur Negative LEU/UL (Negative); Nitrate Urine Negative (Negative); Non Pathogenic Casts 0-2; Protein Urine Trace mg/dL (Negative); RBC Urine 0-2 /hpf (0-2); Squamous Epithelial Cell Urine None Seen /hpf (Few); Urobilinogen Urine 0.2 mg/dL (<2.0); WBC Urine 0-5 /hpf (0-3); pH Urine 5.5 (5.0-9.0)
[2025-01-19 12:12] LABS: Alanine Aminotransferase 38 U/L (6-50); Albumin Level 3.4 g/dL (3.5-5.1); Alkaline Phosphatase 98 U/L (38-126); Anion Gap 11 mmol/L (4-12); Aspartate Amino Transferase 40 U/L (17-59); Bilirubin,Total 1.1 mg/dL (0.2-1.3); Blood Urea Nitrogen 40 mg/dL (9-20); Calcium 9.9 mg/dL (8.4-10.2); Carbon Dioxide 23 mmol/L (22-30); Chloride 101 mmol/L (98-107); Estimated CRCL calculation 49 ml/min; Estimated Glomerular Filt Rate 49; Glucose 266 mg/dL (65-110); INR 1.2; Potassium 3.8 mmol/L (3.4-5.0); Prothrombin Time 15.3 Seconds (11.1-14.7); Sodium 135 mmol/L (137-145)
--- OUTSIDE RECORDS SUMMARY | 2025-01-19 12:25 | XMS_ITS | Referral Summary ---
Author Organization [facility] Office Center Address [address] [place] [address] Care Team Providers Care Sales Order Processor Name Role Phone Nomi Moore MD PhD Unavailable [phone] Roberto Saleem MD Primary Care Provider [phone] Spencer Fulton MD Unavailable [phone] Allergies Active Allergy Reactions Criticality Noted Date Comments Lisinopril Cough Low 10/21/2021 Morphine Itching Medium 10/21/2021 Oxycodone Mental status changes,Delusions Medium 04/2024 Medications hydroCHLOROthiazid e (HYDRODIURIL) 25 mg tablet Take 1 tablet (25 mg total) by mouth every morning Active levothyroxine (SYNTHROID) 100 mcg tablet Take 1 tablet (100 mcg total) by mouth cobbler mckay before breakfast Active carvedilol (COREG) 25 mg [...] tablet by mouth every morning Active omega 1-jqa-rpi-fish oil 1,000 mg (120 mg-180 mg) capsule [...] 09/27/2018 Assessment & Plan (10/20/2022 1:03 PM SIX SIGMA BLACK BELT ENGINEER): Patient seen today for 1 year routine [...] artery disease 11/01/2004 Overview (10/31/2019): stent placed [place] by Dr. Tompkins Immunizations Immunization Administration Dates [...] on file Legal Sex Male 12:37 PM SIX SIGMA BLACK BELT ENGINEER Gender Identity Male 02/02/2022 11:05 AM CDT Sexual Orientation Straight 02/02/2022 11 :05 AM CDT Last Filed Vital Signs Vital Sign Reading Time Taken Comments Blood Pressure 137/65 10/07/2024 8:35 AM SIX SIGMA BLACK BELT ENGINEER Pulse 84 10/07/2024 8:35 AM SIX SIGMA BLACK BELT ENGINEER Temperature 36.6 C (97.9 F) 10/07/2024 8:35 AM SIX SIGMA BLACK BELT ENGINEER Respiratory Rate 18 10/07/2024 8:35 AM SIX SIGMA BLACK BELT ENGINEER Oxygen Saturation 98% 10/07/2024 8:35 AM SIX SIGMA BLACK BELT ENGINEER Inhaled Oxygen Concentration - - Weight 124.7 kg (274 lb 14.6 oz) 10/06/2024 8:55 AM SIX SIGMA BLACK BELT ENGINEER Height 180.3 cm (5' 10.98 ) 10/06/2024 8:55 AM C Body Mass Index 38.36 10/06/2024 8:55 AM SIX SIGMA BLACK BELT ENGINEER Plan of Treatment Not on file Medical Devices Implanted Type Area Correction Lieutenant Device Identifier Shelf Expiration Date Model / Serial / Lot Total Hip Bilatera l: Hip [employer] Triathlon Tritanium Knee 7 Baseplate Tibial 5536-B-700 - [id number] Implanted:Qty: 1 on 01/20/2024 by Spencer Fulton MD at [facility] Right: Knee [employer] [id number] 09/27/2028 5536-B-70 0 / / [id number] [employer] Triathlon Cruciate Retain Bead Knee Right 7 Component Femoral Pa 5517-F-702 - [id number] Implanted:Qty: 1 on 01/20/2024 by Spencer Fulton MD at [facility] Right: Knee [employer] [id number] 11/04/2027 5517-F-70 2 / / [id number] [employer] Tritanium 38mm 11mm Asymmetric Knee Component Patellar Metal 5552-L-381 - [id number] Implanted:Qty: 1 on 01/20/2024 by Spencer Fulton MD at [facility] Right: Knee [employer] [id number] 12/11/2025 5552-L-38 1 / / [id number] [employer] Insert Tibial Triathlon 7 H9mm Knee Bearing Condylar Stabilize Sterile 6776-K-283-E - [id number] Implanted:Qty: 1 on 01/20/2024 by Spencer Fulton MD at [facility] Right: Knee [employer] [id number] 08/14/2028 5531-G-70 9-E / / [id number] [employer] Tritanium 38mm 11mm Asymmetric Knee Component Patellar Metal 5552-L-381 - [id number] Implanted:Qty: 1 on 10/06/2024 by Spencer Fulton MD at [facility] Left: Knee [employer] [id number] 07/16/2029 5552-L-38 1 / / [id number] [employer] Triathlon Cruciate Retain Bead Knee Left 8 Component Femoral Pa 5517-F-801 - [id number] Implanted:Qty: 1 on 10/06/2024 by Spencer Fulton MD at [facility] Left: Knee [employer] [id number] 07/15/2027 5517-F-80 1 / / [id number] [employer] Insert Tibial Triathlon 7 H10mm Knee Bearing Condylar Stabilize Sterile 1635-T-492-E - [id number] Implanted:Qty: 1 on 10/06/2024 by Spencer Fulton MD at [facility] Left: Knee [employer] [id number] 05/18/2029 5531-G-71 0-E / / [id number] [employer] Triathlon Tritanium Knee 7 Baseplate Tibial 5536-B-700 - [id number] Implanted:Qty: 1 on 10/06/2024 by Spencer Fulton MD at [facility] Left: Knee [employer] [id number] 07/27/2029 5536-B-70 0 / / [id number] Procedures Procedure Name Priority Date/Time Associated Diagnosis Comments EGFR Routine 08/24/2024 11:09 AM CDT Preop testing HEMOGLOBIN A1C Routine 08/24/2024 11:09 AM CDT Preop testing LIPID PANEL Routine 11/01/2019 4:44 AM SIX SIGMA BLACK BELT ENGINEER from Last 3 Months or Most Recently [...] RUBIO LAB BLOOD ORDERABLES Fin al Result [facility] [address] Department [place] [address] * (ABNORMAL) Hemoglobin A1c (08/24/2024 11:09 AM CDT) Hgb A1C 7.0(H) 4.0 - 5.6 % Estimated Average Glucose 154 mg/dL [facility] Comment: The ADA recommends reporting an estimated Average Glucose (eAG) with all Hemoglobin A1c results using the equation derived from a study of 507 normal and diabetic adults. Minority populations were underrepresented and children were not included. (Diabetes Care 31:0904-4318, 2008). The eAG is not equivalent to a fasting glucose. Blood 08/24/2024 11:0 9 AM CDT 08/24/2024 11:09 AM CDT us Tabby RUBIO LAB BLOOD ORDERABLES Fin al Result [facility] [address] Department [place] [address] * (ABNORMAL) Lipid panel (11/01/2019 4:44 AM SIX SIGMA BLACK BELT ENGINEER) Cholesterol 127 30 - 199 mg/dL [facility] Comment: Interpretive Data Ages < [...] revised on 2018. Triglycerides 250(H) <=149 mg/dL [facility] Comment: Interpretive Data Ages < [...] revised on 2018. HDL 33(L) >=40 mg/dL [facility] Comment: Interpretive Data Ages < [...] on 2018. LDL, calculated 44 <=129 mg/dL [facility] Comment: Interpretive Data Ages < [...] revised on 2018. Non-HDL Cholesterol 94 mg/dL [facility] Comment: Interpretive Data Ages < [...] last revised on 2018. Chol/HDL ratio 4 [facility] Blood specimen (specimen) 11/01/2019 4:44 AM SIX SIGMA BLACK BELT ENGINEER 11/01/2019 5:17 AM SIX SIGMA BLACK BELT ENGINEER Kenzie Amaya MD LAB BLOOD ORDERABLES Final Result [facility] [address] Department [place] [address] from Last 3 Months or Most Recently Relevant to Health Maintenance Insurance [facility] MEDICARE AD[facility]ANTAGE [facility] MEDICARE OF [facility] MEDICARE Address: [facility] [id number] [place] [address] [facility] UHC MEDICARE ADVANTAGE [facility] Advance Directives For more information, please contact: [phone] Documents on File Type Date Recorded Patient Vp Purchasing Expl anation ADVANCE DIRECTIVE 01/25/2024 2:02 AM POWER OF RETOUCHING OPERATOR-MEDICAL * Full Code (Latest Code Status on File) Date Activated Date Inactivated Comments 10/06/2024 6:40 PM 10/07/2024 3:38 PM * Full Code Date Activated Date Inactivated Comments 01/20/2024 12:53 PM 01/21/2024 4:25 PM * Full Code Date Activated Date Inactivated Comments 10/31/2019 7:01 PM 11/01/2019 6:11 PM Care Teams Sales Order Processor Relationship Specialty Start Date End Date Roberto Saleem MD [address] [place] [address] PCP - General 10/31/19 Nomi Moore MD PhD [address] [facility] [address] [place] [address] Consulting Physician Neurology 11/01/19 Spencer Fulton MD [address] [address] Consulting Physician Orthopedic Surgery 10/26/23
--- OUTSIDE RECORDS SUMMARY | 2025-01-19 12:25 | XMS_ITS | Clinical Summary ---
Author Organization [facility] Office Center Address [address] [place] [address] Care Team Providers Care Motel Manager Name Role Phone Nomi Moore MD PhD Unavailable [phone] Roberto Saleem MD Primary Care Provider [phone] Spencer Fulton MD Unavailable [phone] Allergies Active Allergy Reactions Criticality Noted Date Comments Lisinopril Cough Low 10/21/2021 Morphine Itching Medium 10/21/2021 Oxycodone Mental status changes,Delusions Medium 04/2024 Medications hydroCHLOROthiazid e (HYDRODIURIL) 25 mg tablet Take 1 tablet (25 mg total) by mouth every morning Active levothyroxine (SYNTHROID) 100 mcg tablet Take 1 tablet (100 mcg total) by mouth hand cutter apprentice before breakfast Active carvedilol (COREG) 25 mg [...] tablet by mouth every morning Active omega 7-bwn-oml-fish oil 1,000 mg (120 mg-180 mg) capsule [...] 09/27/2018 Assessment & Plan (10/20/2022 1:03 PM PAVING MACHINE OPERATOR): Patient seen today for 1 [...] artery disease 11/01/2004 Overview (10/31/2019): stent placed [place] by Dr. Tompkins Immunizations Immunization Administration Dates [...] Coronary artery disease [address] [place] by Dr. Tompkins Cataract Hyperlipidemia Gout Sleep [...] on file Legal Sex Male 12:37 PM PAVING MACHINE OPERATOR Gender Identity Male 02/02/2022 11:05 AM CDT Sexual Orientation Straight 02/02/2022 11 :05 AM CDT Obstetrics History Last Filed Vital Signs Vital Sign Reading Time Taken Comments Blood Pressure 137/65 10/07/2024 8:35 AM PAVING MACHINE OPERATOR Pulse 84 10/07/2024 8:35 AM PAVING MACHINE OPERATOR Temperature 36.6 C (97.9 F) 10/07/2024 8:35 AM PAVING MACHINE OPERATOR Respiratory Rate 18 10/07/2024 8:35 AM PAVING MACHINE OPERATOR Oxygen Saturation 98% 10/07/2024 8:35 AM PAVING MACHINE OPERATOR Inhaled Oxygen Concentration - - Weight 124.7 kg (274 lb 14.6 oz) 10/06/2024 8:55 AM PAVING MACHINE OPERATOR Height 180.3 cm (5' 10.98 ) 10/06/2024 8:[address] Body Mass Index 38.36 10/06/2024 8:55 AM PAVING MACHINE OPERATOR Plan of Treatment Health Maintenance [...] 08/05/2018, 10/01/2009 Medical Devices Implanted Type Area Grain Cleaner And Transfer Operator Device Identifier Shelf Expiration Date Model / Serial / Lot Total Hip Bilatera l: Hip [employer] Triathlon Tritanium Knee 7 Baseplate Tibial 5536-B-700 - [id number] Implanted:Qty: 1 on 01/20/2024 by Spencer Fulton MD at [facility] Right: Knee [employer] [id number] 09/27/2028 5536-B-70 0 / / [id number] [employer] Triathlon Cruciate Retain Bead Knee Right 7 Component Femoral Pa 5517-F-702 - [id number] Implanted:Qty: 1 on 01/20/2024 by Spencer Fulton MD at [facility] Right: Knee [employer] [id number] 11/04/2027 5517-F-70 2 / / [id number] [employer] Tritanium 38mm 11mm Asymmetric Knee Component Patellar Metal 5552-L-381 - [id number] Implanted:Qty: 1 on 01/20/2024 by Spencer Fulton MD at [facility] Right: Knee [employer] [id number] 12/11/2025 5552-L-38 1 / / [id number] [employer] Insert Tibial Triathlon 7 H9mm Knee Bearing Condylar Stabilize Sterile 9794-U-607-E - [id number] Implanted:Qty: 1 on 01/20/2024 by Spencer Fulton MD at [facility] Right: Knee [employer] [id number] 08/14/2028 5531-G-70 9-E / / [id number] [employer] Tritanium 38mm 11mm Asymmetric Knee Component Patellar Metal 5552-L-381 - [id number] Implanted:Qty: 1 on 10/06/2024 by Spencer Fulton MD at [facility] Left: Knee [employer] [id number] 07/16/2029 5552-L-38 1 / / [id number] [employer] Triathlon Cruciate Retain Bead Knee Left 8 Component Femoral Pa 5517-F-801 - [id number] Implanted:Qty: 1 on 10/06/2024 by Spencer Fulton MD at [facility] Left: Knee [employer] [id number] 07/15/2027 5517-F-80 1 / / [id number] [employer] Insert Tibial Triathlon 7 H10mm Knee Bearing Condylar Stabilize Sterile 9628-M-096-E - [id number] Implanted:Qty: 1 on 10/06/2024 by Spencer Fulton MD at [facility] Left: Knee [employer] [id number] 05/18/2029 5531-G-71 0-E / / [id number] [employer] Triathlon Tritanium Knee 7 Baseplate Tibial 5536-B-700 - [id number] Implanted:Qty: 1 on 10/06/2024 by Spencer Fulton MD at [facility] Left: Knee [employer] [id number] 07/27/2029 5536-B-70 0 / / [id number] Procedures Procedure Name Priority Date/Time Associated Diagnosis Comments EGFR Routine 08/24/2024 11:09 AM CDT Preop testing HEMOGLOBIN A1C Routine 08/24/2024 11:09 AM CDT Preop testing LIPID PANEL Routine 11/01/2019 4:44 AM PAVING MACHINE OPERATOR from Last 3 Months or [...] ORDERABLES Fin al Result Performing Organization Address City/[facility]/ZIP Co de Phone Number [facility] [address] Department of Laboratories [place], [place] [id number] * (ABNORMAL) Hemoglobin A1c (08/24/2024 11:09 AM CDT) Hgb A1C 7.0(H) 4.0 - 5.6 % Estimated Average Glucose 154 mg/dL [facility] Comment: The ADA recommends reporting an estimated Average Glucose (eAG) with all Hemoglobin A1c results using the equation derived from a study of 507 normal and diabetic adults. Minority populations were underrepresented and children were not included. (Diabetes Care 31:4842-9192, 2008). The eAG is not equivalent to a fasting glucose. Blood 08/24/2024 11:0 9 AM CDT 08/24/2024 11:09 AM CDT Tabby RUBIO LAB BLOOD ORDERABLES Fin al Result Performing Organization Address City/[facility]/ZIP Co de Phone Number [facility] [address] Department [place] [address] * (ABNORMAL) Lipid panel (11/01/2019 4:44 AM PAVING MACHINE OPERATOR) Cholesterol 127 30 - 199 mg/dL [facility] Comment: Interpretive Data Ages < [...] revised on 2018. Triglycerides 250(H) <=149 mg/dL [facility] Comment: Interpretive Data Ages < [...] revised on 2018. HDL 33(L) >=40 mg/dL [facility] Comment: Interpretive Data Ages < [...] on 2018. LDL, calculated 44 <=129 mg/dL [facility] Comment: Interpretive Data Ages < [...] revised on 2018. Non-HDL Cholesterol 94 mg/dL [facility] Comment: Interpretive Data Ages < [...] last revised on 2018. Chol/HDL ratio 4 [facility] Blood specimen (specimen) 11/01/2019 4:44 AM PAVING MACHINE OPERATOR 11/01/2019 5:17 AM PAVING MACHINE OPERATOR us Kenzie Amaya MD LAB BLOOD ORDERABLES Final Result [facility] [address] Department [place] [address] from Last 3 Months or Most Recently Relevant to Health Maintenance Insurance [facility] MEDICARE [facility] Address: [address] [address] [place] [address] [facility] MED[facility] UHC MEDICARE [facility] Address: [address] [address] [place] [address] [facility] MEDICARE Advance Directives For more information, please contact: [phone] Documents on File Type Date Recorded Patient Test Skein Winder Expl anation ADVANCE DIRECTIVE 01/25/2024 2:02 AM POWER OF SYS DIR-MEDICAL * Full Code (Latest Code Status on File) Date Activated Date Inactivated Comments 10/06/2024 6:40 PM 10/07/2024 3:38 PM * Full Code Date Activated Date Inactivated Comments 01/20/2024 12:53 PM 01/21/2024 4:25 PM * Full Code Date Activated Date Inactivated Comments 10/31/2019 7:01 PM 11/01/2019 6:11 PM Care Teams Motel Manager Relationship Specialty Start Date End Date Roberto Saleem MD [address] [place] [address] PCP - General 10/31/19 Nomi Moore MD PhD [address] [facility] [address] [place] [address] Consulting Physician Neurology 11/01/19 Spencer Fulton MD [address] [address] Consulting Physician Orthopedic Surgery 10/26/23
--- OUTSIDE RECORDS SUMMARY | 2025-01-19 12:25 | XMS_ITS | Clinical Summary ---
Author Organization [facility] Address [address] [place] [address] Care Team Providers Care Pediatric Rn Name Role Phone Roberto Saleem MD Primary Care Provider [phone] Allergies Active Allergy Reactions Criticality Noted Date [...] Gel AndroGel Active Lancets (ONETOUCH DELICA PLUS [id number]) [facility] OneTouch Delica Plus Lancet 30 gauge Active Blood Glucose Monitoring Suppl (ONETOUCH PING METER REMOTE) Supplies [facility] OnepoLight Verio Flex Meter Active betamethasone dipropionate 0.05 [...] complete this topic Insurance [employer] Care Teams Pediatric Rn Relationship Specialty Start Date End Date Roberto Saleem MD [address] [place] [id number] PCP - General INTERNAL MEDICINE 02/17/22
--- OUTSIDE RECORDS SUMMARY | 2025-01-19 12:25 | XMS_ITS | Clinical Summary ---
Author Organization [facility] Address [address] [facility] [place] [address] Care Team Providers Care Accuracy Expert Name Role Phone Roberto Saleem MD Primary Care Provider [phone] Source Comments [facility],non-[facility] Affiliates and Associated Physician Practices is amultiple site organization consisting of ambulatory clinics and hospital sitesin [place], [place], [place] and [place]. This disclosure is being madepursuant to the Care Everywhere program and may not contain all information available regarding this patient. Last updated 18.[facility] edulio Social History Tobacco Use Types Packs/Day Years Used Date Smoking Tobacco: Never Assessed Sex and Gender Information Value Date Recorded Sex Assigned at Not on file Gender Identity Not on file Sexual Orientation Not on file Last Filed Vital Signs Vital Sign Reading Time Taken Comments Blood Pressure 152/80 11/09/2013 9:56 AM DIAMOND BROKER Pulse 61 11/09/2013 9:56 AM DIAMOND BROKER Temperature - - Respiratory Rate 18 11/09/2013 9:56 AM DIAMOND BROKER Oxygen Saturation - - Inhaled Oxygen Concentration - - Weight 142.9 kg (315 lb) 11/09/2013 9:56 AM DIAMOND BROKER Height - - Body Mass Index - [...] AETNA MEDICARE ADV AETNA MEDICARE ADV HMO/PPO/PFFS [id number] Effective for all dates [address] [place] [address] Medicare -Managed Care SELF PAY NO INSURANCE SELF PAY NO INSURANCE Effective for all dates [place], [place] Self Pay AETNA MEDICARE ADV AETNA MEDICARE ADV HMO/PPO/PFFS [id number] Effective for all dates [address] [place] [address] Medicare -Managed Care SELF PAY NO INSURANCE SELF PAY NO INSURANCE Effective for all dates [place] Self Pay AETNA MEDICARE ADV AETNA MEDICARE ADV HMO/PPO/PFFS [id number] Effective for all dates [address] [place] [address] Medicare -Managed Care SELF PAY NO INSURANCE SELF PAY NO INSURANCE Effective for all dates [place] Self Pay AETNA MEDICARE ADV AETNA MEDICARE ADV HMO/PPO/PFFS [id number] Effective for all dates [address] [place] [address] Medicare -Managed Care SELF PAY NO INSURANCE SELF PAY NO INSURANCE Effective for all dates [place] Self Pay AETNA MEDICARE ADV AETNA MEDICARE ADV HMO/PPO/PFFS [id number] Effective for all dates [address] [place] [address] Medicare -Managed Care SELF PAY NO INSURANCE SELF PAY NO INSURANCE Effective for all dates [place] Self Pay AETNA MEDICARE ADV AETNA MEDICARE ADV HMO/PPO/PFFS [id number] Effective for all dates [address] [place] [address] Medicare -Managed Care SELF PAY NO INSURANCE SELF PAY NO INSURANCE Effective for all dates [place] Self Pay C MANAGED MEDICARE ADV [facility] COMPLETE CHOICE MEDICARE ADV PPO [id number] 11/01/2020-Prese [address] [address] [place] [address] Medicare -Managed Care Care Teams Accuracy Expert Relationship Specialty Start Date End Date Roberto Saleem MD [address] [place] [id number] PCP - General 12/25/10
--- NOTE | 2025-01-19 12:57 | ECG_ITS ---
Test Date: 2025-01-19 13:14:10 Measurements Intervals [place] Rate: 64 P: 4 CA: 204 QRS: -49 QRSD: 113 T: 0 QT: 389 QTc: 402 Interpretive Statements SINUS RHYTHM WITH SINUS ARRHYTHMIA INFERIOR MYOCARDIAL INFARCTION , PROBABLY OLD [40+ ms Q WAVE AND/OR ST/T ABNORMALITY IN II/aVF] No previous ECG available for comparison Electronically Signed On 01-19-2025 18:37:19 CDT by Abhijit Cui M.D.
[2025-01-19] MEDS: SODIUM CHLORIDE 0.9% IV 1,000 ML 150 ML IV CONT (13:22)
--- NOTE | 2025-01-19 14:33 | ECG_ITS ---
Test Date: 2025-01-19 14:48:03 Measurements Intervals [place] Rate: 64 P: -11 OR: 206 QRS: -47 QRSD: 110 T: 3 QT: 376 QTc: 389 Interpretive Statements SINUS RHYTHM WITH OCCASIONAL SUPRAVENTRICULAR PREMATURE COMPLEXES INFERIOR MYOCARDIAL INFARCTION , PROBABLY OLD [40+ ms Q WAVE AND/OR ST/T ABNORMALITY IN II/aVF] Compared to ECG 01/19/2025 13:14:10 NO SIGNIFICANT CHANGES Electronically Signed On 01-19-2025 18:39:19 CDT by Abhijit Cui M.D.
[2025-01-19 15:18] LABS: Troponin I 0.071 ng/mL (0.000-0.034)
--- NOTE | 2025-01-19 16:18 | ED_ITS ---
HPI - General Adult General Chief complaint: Altered Mental Status Stated complaint: altered mental status Time Seen by Provider: 01/19/25 11:00 Source: patient Mode of arrival: ambulatory Limitations: no limitations History of Present Illness HPI narrative: 84-year-old with a history of hypertension, type 2 diabetes here with the complaints of having brain fog since this morning. Patient states that for the 1st part of the because she was not able to eat much as he was quite constipated however started eating since yesterday this morning he woke up with the feeling weak and having a brain fog. He denies having any weakness in his extremities. No headache or chest pain or shortness of breath. Denies any nausea or vomiting. Onset (ago): day(s) (1) Severity: mild Pain Consistency: now resolved Treatments prior to arrival: none Related Data Home Medications ?Medication ?Instructions ?Recorded ?Confirmed ?Last Taken ?Type testosterone (AndroGel) 2 pump topical DAILY 09/05/19 01/19/25 01/19/25 History aspirin 325 mg tablet 325 mg PO DAILY 11/27/19 01/19/25 01/18/25 History Centrum Silver 1 tab-cap PO DAILY 04/23/20 01/19/25 01/19/25 History omega-3 fatty acids 1,000 mg 3,000 mg PO DAILY 05/16/20 01/19/25 01/19/25 History capsule (Fish Oil Concentrate) docusate sodium 100 mg capsule 100 mg PO DAILY PRN PRN 02/04/21 01/19/25 12/13/23 History constipation psyllium husk 0.52 gram capsule 1.04 g PO HS 02/20/21 01/19/25 01/18/25 History (Metamucil) vibegron 75 mg tablet (Gemtesa) [address] Fajardo 09/08/23 01/19/25 01/19/25 History cholecalciferol (vitamin D3) 50 50 mcg PO DAILY 10/13/23 01/19/25 01/19/25 History mcg (2,000 unit) capsule multivitamin (Daily Multi-Vitamin 1 tablet PO DAILY 12/13/24 01/19/25 12/23/24 History tablet) Allergies Allergy/AdvReac Type Severity Reaction Status Date / Time morphine Allergy Intermediate Itching Verified 01/19/25 11:36 oxycodone (From Percocet) AdvReac Severe Confusion Verified 01/19/25 11:36 MARIA LUZ Inhibitors AdvReac Mild Cough Verified 01/19/25 11:36 lisinopril AdvReac Mild Cough Verified 01/19/25 11:36 Review of Systems 2 Review of Systems: All systems reviewed & are unremarkable except as noted in HPI and below Constitutional: Constitutional: Reports no additional constitutional complaints Eyes: Eyes: Reports no additional eye complaints ENT: Reports system reviewed and no additional complaints, except as documented Cardiovascular: Cardiovascular: Reports no additional cardiovascular complaints Respiratory: Respiratory: Reports no additional respiratory complaints Gastrointestinal: Gastrointestinal: Reports no additional gastrointestinal complaints Musculoskeletal: Musculoskeletal: Reports no additional musculoskeletal complaints Integumentary/Breasts: Skin/Breast: Reports system reviewed and no additional complaints, except as docu Psychiatric: Psychiatric: Reports no additional psychiatric complaints [facility] Past Medical History Medical History CTS (carpal tunnel syndrome) BMI 36.0-36.9,adult Weakness of both hands Bilateral hand pain BMI 37.0-37.9, adult Rhinovirus BMI 38.0-38.9,adult Abdominal mass Chronic pain of right knee Grief Personal history of COVID-19 Lung nodule IVERSON (dyspnea on exertion) UTI (urinary tract infection) Rash BMI 39.0-39.9,adult Gout Insomnia Microscopic hematuria Onychomycosis Ruptured abdominal aortic aneurysm Seizure-like activity Testosterone deficiency Post-op pain Chronic low back pain LOUANN (obstructive sleep apnea) Dysuria Abdominal pain Dysphagia Encounter for routine adult health examination with abnormal findings Pre-operative clearance Elevated homocysteine Encounter for Medicare annual wellness exam Encounter for routine adult health examination without abnormal findings Hx of transient ischemic attack (TIA) Hospital discharge follow-up Tingling of upper extremity Tingling of face Body mass index (BMI) of 40.1 to 44.9 in adult Bladder cancer Hypothyroidism (acquired) History of CVA (cerebrovascular accident) Hearing loss DM type 2 (diabetes mellitus, type 2) Prostate cancer screening DJD (degenerative joint disease), multiple sites 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 Mixed hyperlipidemia History of abdominal aortic aneurysm (AAA) had repaired now being watched Colon cancer screening Benign essential hypertension ASHD (arteriosclerotic heart disease) Surgical History Surgical History History of bilateral knee replacement Status post total knee replacement, left Status post total knee replacement, right History of intravascular stent placement Hx of hernia repair Status post urethral surgery S/P AAA repair History of total hip replacement Family History Family History Father Diabetes mellitus Family history of coronary artery disease Family history of diabetes mellitus in first degree relative Mother Family history of cardiovascular disease Family history of malignant neoplasm of brain Family history of heart disease in male family member before age 55 Social History Social History Social History: Smoking packs per day: 1 Smoking cigarettes per day: 20.0 Years smoked: 50 Smoking pack-years: 50.00 Smoking status: Former smoker Tobacco type: cigarettes Second hand tobacco smoke exposure: Yes Smoking end date: 11/01/04 Alcohol intake: current Drinks per week: 14 Alcohol use details: Daily; C[employer]TA[employer] WINE Substance use: never Substance use type: does not use Lack of Transportation: No Lack of Food: Never True Current Housing: I Have Housing Concerned About Future Housing: No Difficulty Paying Gas/Electric Bills: No Difficulty Paying for Meds: No Currently Unemployed: No Education: Master's Degree or Higher Difficulty w/ Childcare or Family Care: No Living arrangements: alone Occupation/Education: retired Gender identity (if verbalized by the patient): Male Spiritual care concerns: No Agree to blood products: Yes Exam 2 Narrative: GENERAL: Well-appearing, well-nourished, and in no acute distress. HEAD: Normocephalic, atraumatic. EYES: PERRLA and EOMI. ENT: Nares clear, no rhinorrhea or epistaxis. Mucous membranes moist. NECK: Supple. CHEST: Clear to auscultation. No respiratory distress. HEART: Regular rate and rhythm. No murmur heard. Normal peripheral pulses. ABDOMEN: Soft, nontender, nondistended, normal active bowel sounds. EXTREMITIES: Normal range of motion. No edema. SKIN: Warm, dry, no rash. NEURO: No focal deficits. Alert and oriented x3. PSYCH: Normal mood and affect. Course Course Emergency Course: Patient was notified about his lab work, EKG and there is CT findings. After hydration with IV fluids he is feeling much better. I discussed with Dr. Saleem , will follow up in the office Vital Signs Vital signs: Vital Signs Temperature 36.6 C 01/19/25 10:22 Pulse Rate 81 01/19/25 10:22 Respiratory Rate 18 01/19/25 10:22 Blood Pressure 130/60 01/19/25 10:22 Pulse Oximetry 99 01/19/25 10:22 Oxygen Delivery Room Air 01/19/25 10:22 Temperature 36.6 C 01/19/25 10:22 Pulse Rate 70 01/19/25 15:49 Respiratory Rate 20 01/19/25 15:49 Blood Pressure 124/63 01/19/25 15:49 Pulse Oximetry 99 01/19/25 15:49 Oxygen Delivery Room Air 01/19/25 11:32 Medical Decision Making Differential Diagnosis Differential Diagnosis: Viral syndrome, CVA, TIA, migraine, dehydration Medical Records Medical records reviewed: Yes I reviewed the external patient's medical records. Vital Signs Vital Signs: Vital Signs Temperature 36.6 C 01/19/25 10:22 Pulse Rate 81 01/19/25 10:22 Respiratory Rate 18 01/19/25 10:22 Blood Pressure 130/60 01/19/25 10:22 Pulse Oximetry 99 01/19/25 10:22 Oxygen Delivery Room Air 01/19/25 10:22 Temperature 36.6 C 01/19/25 10:22 Pulse Rate 70 01/19/25 15:49 Respiratory Rate 20 01/19/25 15:49 Blood Pressure 124/63 01/19/25 15:49 Pulse Oximetry 99 01/19/25 15:49 Oxygen Delivery Room Air 01/19/25 11:32 Lab Data Lab results reviewed: Yes I reviewed the patient's lab results. 01/19/25 11:50 01/19/25 11:50 Labs: Lab Results 01/19/25 01/19/25 01/19/25 Range/Units 11:50 11:53 11:58 WBC 9.5 (4.5-10.0) K/mm3 RBC 4.13 L (4.6-6.20) M/mm3 Hgb 12.6 L (14.0-18.0) g/dL Hct 38.4 L (42.0-52.0) % MCV 93.0 (80-100) fl MCH 30.5 (26-34) pg MCHC 32.8 (32-36) g/dl RDW 15.1 H (11.5-14.5) % Plt Count 118 L (150-375) k/mm3 MPV 10.3 (7.4-10.4) fl Immature Gran % (Auto) 0.5 (0-0.5) % Neut % (Auto) 80.0 H (45.5-73.1) % Lymph % (Auto) 5.4 L (18.3-44.2) % [place] % (Auto) 13.4 H (2.6-8.5) % Eos % (Auto) 0.5 (0-4.4) % Baso % (Auto) 0.2 (0.2-1.2) % Lymph # (Auto) 0.51 L (0.9-3.2) K/mm3 [place] # (Auto) 1.3 H (0.1-0.6) K/mm3 Eos # (Auto) 0.1 (0-0.3) K/mm3 Baso # (Auto) 0.0 (0.0-0.1) K/mm3 Abs Immat Gran (auto) 0.05 H (0.00-0.031) K/mm3 Absolute Neuts (auto) 7.6 H (1.3-6.7) K/mm3 Absolute Nucleated RBC 0.000 (0.0-0.012) K/mm3 Nucleated RBC % 0.0 (0.0-0.2) % % Immature Plt Fraction 3.6 (0.9-11.2) % PT 15.3 H (11.1-14.7) Seconds INR 1.2 Sodium 135 L (137-145) mmol/L Potassium 3.8 (3.4-5.0) mmol/L Chloride 101 (98-107) mmol/L Carbon Dioxide 23 (22-30) mmol/L Anion Gap 11 (4-12) mmol/L BUN 40 H D (9-20) mg/dL Creatinine 1.39 H (0.7-1.3) mg/dL Estim Creat Clear Calc 49 ml/min Estimated GFR 49 L (59 - ) Glucose 266 H (65-110) mg/dL POC Capillary Glucose 261 H (65-105) mg/dl Calcium 9.9 (8.4-10.2) mg/dL Total Bilirubin 1.1 (0.2-1.3) mg/dL AST 40 (17-59) U/L ALT 38 (6-50) U/L Alkaline Phosphatase 98 (38-126) U/L Troponin I 0.080 H* (0.000-0.034) ng/mL Total Protein 6.0 L (6.3-8.2) g/dL Albumin 3.4 L (3.5-5.1) g/dL Urine Color Yellow (Yellow) Urine Appearance Cloudy H (Clear) Urine pH 5.5 (5.0-9.0) Ur Specific [place] 1.030 (1.001-1.035) Urine Protein Trace (Negative) mg/dL Urine Glucose (UA) 3+ H (Negative) mg/dL Urine Ketones Negative (Negative) mg/dL Ur Blood (Man) Negative (Negative) Urine Nitrate Negative (Negative) Urine Bilirubin Negative (Negative) Urine Urobilinogen 0.2 (<2.0) mg/dL Leukocyte Esterase Rfl Negative (Negative) RICKEY/UL Urine RBC 0-2 (0-2) /hpf Urine WBC 0-5 (0-3) /hpf Ur Squamous Epith Cells None seen (Few) /hpf Urine Bacteria None seen /hpf Urine Casts 0-2 03// Range/Units 14:45 WBC (4.5-10.0) K/mm3 RBC (4.6-6.20) M/mm3 Hgb (14.0-18.0) g/dL Hct (42.0-52.0) % MCV (80-100) fl MCH (26-34) pg MCHC (32-36) g/dl RDW (11.5-14.5) % Plt Count (150-375) k/mm3 MPV (7.4-10.4) fl Immature Gran % (Auto) (0-0.5) % Neut % (Auto) (45.5-73.1) % Lymph % (Auto) (18.3-44.2) % [place] % (Auto) (2.6-8.5) % Eos % (Auto) (0-4.4) % Baso % (Auto) (0.2-1.2) % Lymph # (Auto) (0.9-3.2) K/mm3 [place] # (Auto) (0.1-0.6) K/mm3 Eos # (Auto) (0-0.3) K/mm3 Baso # (Auto) (0.0-0.1) K/mm3 Abs Immat Gran (auto) (0.00-0.031) K/mm3 Absolute Neuts (auto) (1.3-6.7) K/mm3 Absolute Nucleated RBC (0.0-0.012) K/mm3 Nucleated RBC % (0.0-0.2) % % Immature Plt Fraction (0.9-11.2) % PT (11.1-14.7) Seconds INR Sodium (137-145) mmol/L Potassium (3.4-5.0) mmol/L Chloride (98-107) mmol/L Carbon Dioxide (22-30) mmol/L Anion Gap (4-12) mmol/L BUN (9-20) mg/dL Creatinine (0.7-1.3) mg/dL Estim Creat Clear Calc ml/min Estimated GFR (59 - ) Glucose (65-110) mg/dL POC Capillary Glucose (65-105) mg/dl Calcium (8.4-10.2) mg/dL Total Bilirubin (0.2-1.3) mg/dL AST (17-59) U/L ALT (6-50) U/L Alkaline Phosphatase (38-126) U/L Troponin I 0.071 H* (0.000-0.034) ng/mL Total Protein (6.3-8.2) g/dL Albumin (3.5-5.1) g/dL Urine Color (Yellow) Urine Appearance (Clear) Urine pH (5.0-9.0) Ur Specific [place] (1.001-1.035) Urine Protein (Negative) mg/dL Urine Glucose (UA) (Negative) mg/dL Urine Ketones (Negative) mg/dL Ur Blood (Man) (Negative) Urine Nitrate (Negative) Urine Bilirubin (Negative) Urine Urobilinogen (<2.0) mg/dL Leukocyte Esterase Rfl (Negative) RICKEY/UL Urine RBC (0-2) /hpf Urine WBC (0-3) /hpf Ur Squamous Epith Cells (Few) /hpf Urine Bacteria /hpf Urine Casts Imaging Data Radiologist's impression: ITS Impressions Head CT 03/21/25 12:42 Impression: No intracranial hemorrhage, mass, or acute infarct. Atrophy and chronic white matter changes, as above. Chest X-Ray 01/19/25 12:45 Impression: Normal chest. ECG Data EKG #1: ECG completion date: 01/19/25 ECG completion time: 13:14 EKG Interpretation: normal rate (64), sinus rhythm, NL axis and no acute changes Discharge Plan Discharge Clinical Impression: Brain fog, SILVER (acute kidney injury) Patient Disposition: Home, Self-Care Condition: Stable Instructions: Antibiotic Form Additional Instructions: Drink more fluids, follow withour doctor. Patient Language: Spanish Prescriptions: No Action Centrum Silver 1 tab-cap PO DAILY aspirin 325 mg tablet 325 mg PO DAILY amlodipine 10 mg tablet See Rx Instructions .ROUTE .COMPLEX Qty: 90 1RF Dose Instruction: TAKE 1 TABLET BY MOUTH EVERY MORNING AND 1/2 TABLET EVERY EVENING Rx Instructions: TAKE 1 TABLET BY MOUTH EVERY MORNING. testosterone [AndroGel] 20.25 mg/1.25 gram (1.62 %) gel in metered-dose pump 2 pump TOPICAL DAILY omega-3 fatty acids [Fish Oil Concentrate] 1,000 mg capsule 3,000 mg PO DAILY Rx Instructions: TAKES 2000MG MORNING & 1000MG EVENING (DME) blood-glucose meter [Blood Glucose Monitoring] Kit See Rx Instructions .Route Qty: 1 0RF Rx Instructions: As directed (DME) lancets 23 gauge misc See Rx Instructions .Route Qty: 100 1RF Rx Instructions: As directed psyllium husk [Metamucil] 0.52 gram Capsule 1.04 g PO HS multivitamin [Daily Multi-Vitamin] Tablet 1 tablet PO DAILY docusate sodium 100 mg capsule 100 mg PO DAILY PRN (Reason: PRN constipation) Patient Comments: Patient rarely uses. Gemtesa 75 mg tablet 75 mg PO DAILY cholecalciferol (vitamin D3) 50 mcg (2,000 unit) capsule 50 mcg PO DAILY hydrochlorothiazide 25 mg tablet See Rx Instructions .ROUTE .COMPLEX Qty: 90 1RF Dose Instruction: TAKE 1 TABLET BY MOUTH DAILY Patient Comments: QAM Rx Instructions: TAKE 1 TABLET BY MOUTH DAILY celecoxib [Celebrex] 200 mg capsule 200 mg PO BID Qty: 180 1RF (DME) True Metrix Glucose Test Strip Strip See Rx Instructions .ROUTE .COMPLEX Qty: 50 1RF Dose Instruction: USE TO TEST ONCE DAILY DIRECTED BY PRESCRIBER Rx Instructions: USE TO TEST ONCE DAILY DIRECTED BY PRESCRIBER candesartan 32 mg tablet See Rx Instructions .ROUTE .COMPLEX Qty: 90 1RF Dose Instruction: TAKE 1 TABLET BY MOUTH DAILY Patient Comments: QAM Rx Instructions: TAKE 1 TABLET BY MOUTH DAILY carvedilol 25 mg tablet See Rx Instructions .ROUTE .COMPLEX Qty: 180 1RF Dose Instruction: TAKE 1 TABLET BY MOUTH TWICE DAILY Rx Instructions: TAKE 1 TABLET BY MOUTH TWICE DAILY atorvastatin 80 mg tablet See Rx Instructions .ROUTE .COMPLEX Qty: 90 1RF Dose Instruction: TAKE 1 TABLET BY MOUTH DAILY Rx Instructions: TAKE 1 TABLET BY MOUTH DAILY levothyroxine 100 mcg tablet See Rx Instructions .ROUTE .COMPLEX Qty: 90 1RF Dose Instruction: TAKE 1 TABLET BY MOUTH DAILY Patient Comments: QAM Rx Instructions: TAKE 1 TABLET BY MOUTH DAILY Tradjenta 5 mg tablet See Rx Instructions .ROUTE .COMPLEX Qty: 90 0RF Dose Instruction: TAKE 1 TABLET BY MOUTH IN THE MORNING Rx Instructions: TAKE 1 TABLET BY MOUTH IN THE MORNING dapaglifloz propaned-metformin 10-1,000 mg tablet, IR - ER, biphasic 24hr See Rx Instructions .ROUTE .COMPLEX Qty: 90 0RF Dose Instruction: TAKE 1 TABLET BY MOUTH DAILY Patient Comments: QAM Rx Instructions: TAKE 1 TABLET BY MOUTH DAILY metformin 500 mg tablet See Rx Instructions .ROUTE .COMPLEX Qty: 90 1RF Dose Instruction: TAKE 1 TABLET(500 MG) BY MOUTH DAILY WITH THE EVENING MEAL Rx Instructions: TAKE 1 TABLET(500 MG) BY MOUTH DAILY WITH THE EVENING MEAL glimepiride 1 mg tablet 1 mg PO QAM Qty: 100 1RF Rx Instructions: administer with breakfast lorazepam 1 mg tablet 1 mg PO BID PRN (Reason: anxiety) Qty: 60 0RF allopurinol 300 mg tablet See Rx Instructions .ROUTE .COMPLEX Qty: 90 1RF Dose Instruction: TAKE 1 TABLET BY MOUTH DAILY Rx Instructions: TAKE 1 TABLET BY MOUTH DAILY Follow-up/Referrals: Roberto Saleem MD [Primary Care Provider] - Time of Disposition: 16:28
== END 2025-01-19 17:17 | disposition home or self-care (01) ==
PROVIDERS: Emergency Provider Family Medicine; PCP Internal Medicine
DX: N17.9 Acute kidney failure, unspecified (principal); R41.89 Other symptoms and signs involving cognitive functions and awareness; I10 Essential (primary) hypertension; I25.10 Atherosclerotic heart disease of native coronary artery without angina pectoris; E11.9 Type 2 diabetes mellitus without complications; E03.9 Hypothyroidism, unspecified; E78.2 Mixed hyperlipidemia; G47.33 Obstructive sleep apnea (adult) (pediatric); Z85.51 Personal history of malignant neoplasm of bladder; Z86.16 Personal history of COVID-19; Z87.440 Personal history of urinary (tract) infections; Z86.73 Personal history of transient ischemic attack (TIA), and cerebral infarction without residual deficits; Z87.891 Personal history of nicotine dependence; Z96.653 Presence of artificial knee joint, bilateral; Z96.649 Presence of unspecified artificial hip joint; Z79.82 Long term (current) use of aspirin; Z79.899 Other long term (current) drug therapy; Z79.84 Long term (current) use of oral hypoglycemic drugs; I49.1 Atrial premature depolarization; R94.31 Abnormal electrocardiogram [ECG] [EKG]
CPT/HCPCS: 36415; 70450; 71045; 80053; 81001; 82948; 84484; 85025; 85055; 85610; 93005; 96360; 96361; 99284; J7030

== ENCOUNTER 2025-02-01 09:55 | Outpatient (CLI) | payer MEDICARE, SELFPAY ==
--- NOTE | ~2025-02-01 | NM_ITS ---
EXAMINATION: NM hepatobiliary w pharm DATE: 02/01/2025 12:25 INDICATION: Calculus cholecystitis suggested on recent abdominal ultrasound COMPARISON: None. TECHNIQUE: 4.8 mCi Tc-99m mebrofenin (Choletec) was administered intravenously. Scintigraphic images of the abdomen were obtained for one hour. 2.5 mcg sincalide (Kinevac) was administered by slow intr avenous infusion, and imaging was continued for 30 minutes. Gallbladder ejection fraction was calcula kaylynn by the technologist. FINDINGS: There is normal clearance of radiotracer from the blood pool. There is homogeneous tracer uptake by t he liver. Activity progresses to the gallbladder and bowel. The gallbladder ejection fraction (GBEF) is 3% (normal 10-90%, but most patient with gallbladder dysfunction have GBEF < 35% which does overl ap with the normal range). IMPRESSION: 1. Gallbladder ejection fraction is below normal limits which can be seen with gallbladder dysfuncti on or chronic cholecystitis in the appropriate clinical setting. Reviewed, dictated and finalized at location A. IMPRESSION: 1. Gallbladder ejection fraction is below normal limits which can be seen with gallbladder dysfunction or chronic cholecystitis in the appropriate clinical s etting.
--- OUTSIDE RECORDS SUMMARY | 2025-02-01 10:37 | XMS_ITS | Clinical Summary ---
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 This disclosure is being madepursuant to the Care Everywhere program and may not contain all information available regarding this patient. 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 Oxygen Saturation - - Inhaled Oxygen Concentration - - Weight 142.9 kg (315 lb) 11/09/2013 9:56 AM 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 WORKER Height - - Body Mass Index - - Plan of Treatment Health Maintenance Due Date Last Done Comments DTAP/TDAP/TD VACCINES (1 - Tdap) 1961 PNEUMOCOCCAL VACCINE 50+ (1 of 1 - PCV) 1992 ZOSTER VACCINE (1 of 2) 1992 Respiratory Syncytial Virus (RSV) Vaccine Pt: or over 60 yrs (1 - 1-dose 75+ series) 2017 COVID-19 VACCINE ( season) 2024 07/30/2021, 01/09/2021, 12/19/2020 DEPRESSION SCREENING 11/01/2024 MEDICARE AWV CALENDAR YEAR 2024 INFLUENZA VACCINE (Season Ended) 2025 07/12/2021, 06/27/2020, 08/17/2019, Additional history exists HEPATITIS B VACCINE Aged Out No longe [...] AETNA MEDICARE ADV AETNA MEDICARE ADV HMO/PPO/PFFS [id number] Effective for all dates [address] [place] [address] Medicare -Managed Care SELF PAY NO INSURANCE SELF PAY NO INSURANCE Effective for all dates [place], [place] Self Pay AETNA MEDICARE ADV AETNA MEDICARE ADV HMO/PPO/PFFS [id number] Effective for all dates [address] [place] [address] Medicare -Managed Care SELF PAY NO INSURANCE SELF PAY NO INSURANCE Effective for all dates [place] Self Pay AETNA MEDICARE ADV AETNA MEDICARE ADV HMO/PPO/PFFS [id number] Effective for all dates [address] [place] [address] Medicare -Managed Care SELF PAY NO INSURANCE SELF PAY NO INSURANCE Effective for all dates [place] Self Pay AETNA MEDICARE ADV AETNA MEDICARE ADV HMO/PPO/PFFS [id number] Effective for all dates [address] [place] [address] Medicare -Managed Care SELF PAY NO INSURANCE SELF PAY NO INSURANCE Effective for all dates [place] Self Pay AETNA MEDICARE ADV AETNA MEDICARE ADV HMO/PPO/PFFS [id number] Effective for all dates [address] [place] [address] Medicare -Managed Care SELF PAY NO INSURANCE SELF PAY NO INSURANCE Effective for all dates [place] Self Pay AETNA MEDICARE ADV AETNA MEDICARE ADV HMO/PPO/PFFS [id number] Effective for all dates [address] [place] [address] Medicare -Managed Care SELF PAY NO INSURANCE SELF PAY NO INSURANCE Effective for all dates [place] Self Pay C MANAGED MEDICARE ADV [facility] COMPLETE CHOICE MEDICARE ADV PPO [id number] 11/01/2020-Prese [address] [address] [place] [address] Medicare -Managed Care Care Teams Process Tank Tender Relationship Specialty Start Date End Date Roberto Saleem MD [address] [place] [id number] PCP - General 12/25/10
--- OUTSIDE RECORDS SUMMARY | 2025-02-01 10:37 | XMS_ITS | Clinical Summary ---
Author Organization [facility] at [facility] Office Center Address [address] [place] [address] Care Team Providers Care Reconstructive Surgeon Name Role Phone Nomi Moore MD PhD Unavailable [phone] Roberto Saleem MD Primary Care Provider [phone] Spencer Fulton MD Unavailable [phone] Allergies Active Allergy Reactions Criticality Noted Date Comments Lisinopril Cough Low 10/21/2021 Morphine Itching Medium 10/21/2021 Oxycodone Mental status changes,Delusions Medium 04/2024 Medications hydroCHLOROthiazid e (HYDRODIURIL) 25 mg tablet Take 1 tablet (25 mg total) by mouth every morning Active levothyroxine (SYNTHROID) 100 mcg tablet Take 1 tablet (100 mcg total) by mouth roll up machine operator before breakfast Active carvedilol (COREG) 25 mg [...] tablet by mouth every morning Active omega 7-kdu-wvx-fish oil 1,000 mg (120 mg-180 mg) capsule [...] 09/27/2018 Assessment & Plan (10/20/2022 1:03 PM RECRUITING OPERATIONS CONSULTANT): Patient seen today for 1 year [...] artery disease 11/01/2004 Overview (10/31/2019): stent placed [place] by Dr. Tompkins Immunizations Immunization Administration Dates [...] Coronary artery disease [address] a[address] [place] by Dr. Tompkins Cataract Hyperlipidemia Gout Sleep [...] on file Legal Sex Male 12:37 PM RECRUITING OPERATIONS CONSULTANT Gender Identity Male 02/02/2022 11:05 AM CDT Sexual Orientation Straight 02/02/2022 11 :05 AM CDT Obstetrics History Last Filed Vital Signs Vital Sign Reading Time Taken Comments Blood Pressure 137/65 10/07/2024 8:35 AM RECRUITING OPERATIONS CONSULTANT Pulse 84 10/07/2024 8:35 AM RECRUITING OPERATIONS CONSULTANT Temperature 36.6 C (97.9 F) 10/07/2024 8:35 AM RECRUITING OPERATIONS CONSULTANT Respiratory Rate 18 10/07/2024 8:35 AM RECRUITING OPERATIONS CONSULTANT Oxygen Saturation 98% 10/07/2024 8:35 AM RECRUITING OPERATIONS CONSULTANT Inhaled Oxygen Concentration - - Weight 124.7 kg (274 lb 14.6 oz) 10/06/2024 8:55 AM RECRUITING OPERATIONS CONSULTANT Height 180.3 cm (5' 10.98 ) 10/06/2024 8:[address] Body Mass Index 38.36 10/06/2024 8:55 AM RECRUITING OPERATIONS CONSULTANT Plan of Treatment Health Maintenance Due Date [...] 08/05/2018, 10/01/2009 Medical Devices Implanted Type Area Packing Machine Feeder Device Identifier Shelf Expiration Date Model / Serial / Lot Total Hip Bilatera l: Hip [employer] Triathlon Tritanium Knee 7 Baseplate Tibial 5536-B-700 - [id number] Implanted:Qty: 1 on 01/20/2024 by Spencer Fulton MD at [facility] Right: Knee [employer] [id number] 09/27/2028 5536-B-70 0 / / [id number] [employer] Triathlon Cruciate Retain Bead Knee Right 7 Component Femoral Pa 5517-F-702 - [id number] Implanted:Qty: 1 on 01/20/2024 by Spencer Fulton MD at [facility] Right: Knee [employer] [id number] 11/04/2027 5517-F-70 2 / / [id number] [employer] Tritanium 38mm 11mm Asymmetric Knee Component Patellar Metal 5552-L-381 - [id number] Implanted:Qty: 1 on 01/20/2024 by Spencer Fulton MD at [facility] Right: Knee [employer] [id number] 12/11/2025 5552-L-38 1 / / [id number] [employer] Insert Tibial Triathlon 7 H9mm Knee Bearing Condylar Stabilize Sterile 0635-O-690-E - [id number] Implanted:Qty: 1 on 01/20/2024 by Spencer Fulton MD at [facility] Right: Knee [employer] [id number] 08/14/2028 5531-G-70 9-E / / [id number] [employer] Tritanium 38mm 11mm Asymmetric Knee Component Patellar Metal 5552-L-381 - [id number] Implanted:Qty: 1 on 10/06/2024 by Spencer Fulton MD at [facility] Left: Knee [employer] [id number] 07/16/2029 5552-L-38 1 / / [id number] [employer] Triathlon Cruciate Retain Bead Knee Left 8 Component Femoral Pa 5517-F-801 - [id number] Implanted:Qty: 1 on 10/06/2024 by Spencer Fulton MD at [facility] Left: Knee [employer] [id number] 07/15/2027 5517-F-80 1 / / [id number] [employer] Insert Tibial Triathlon 7 H10mm Knee Bearing Condylar Stabilize Sterile 5867-C-839-E - [id number] Implanted:Qty: 1 on 10/06/2024 by Spencer Fulton MD at [facility] Left: Knee [employer] [id number] 05/18/2029 5531-G-71 0-E / / [id number] [employer] Triathlon Tritanium Knee 7 Baseplate Tibial 5536-B-700 - [id number] Implanted:Qty: 1 on 10/06/2024 by Spencer Fulton MD at [facility] Left: Knee [employer] [id number] 07/27/2029 5536-B-70 0 / / [id number] Procedures Procedure Name Priority Date/Time Associated Diagnosis Comments EGFR Routine 08/24/2024 11:09 AM CDT Preop testing HEMOGLOBIN A1C Routine 08/24/2024 11:09 AM CDT Preop testing LIPID PANEL Routine 11/01/2019 4:44 AM RECRUITING OPERATIONS CONSULTANT from Last 3 Months or Most [...] ORDERABLES Fin al Result Performing Organization Address City/[facility]/ZIP Co de Phone Number [facility] [address] Department of Laboratories [place], [place] [id number] * (ABNORMAL) Hemoglobin A1c (08/24/2024 11:09 AM CDT) Hgb A1C 7.0(H) 4.0 - 5.6 % Estimated Average Glucose 154 mg/dL [facility] Comment: The ADA recommends reporting an estimated Average Glucose (eAG) with all Hemoglobin A1c results using the equation derived from a study of 507 normal and diabetic adults. Minority populations were underrepresented and children were not included. (Diabetes Care 31:2858-5831, 2008). The eAG is not equivalent to a fasting glucose. Blood 08/24/2024 11:0 9 AM CDT 08/24/2024 11:09 AM CDT Tabby RUBIO LAB BLOOD ORDERABLES Fin al Result Performing Organization Address City/[facility]/ZIP Co de Phone Number [facility] [address] Department [place] [address] * (ABNORMAL) Lipid panel (11/01/2019 4:44 AM RECRUITING OPERATIONS CONSULTANT) Cholesterol 127 30 - 199 mg/dL [facility] Comment: Interpretive Data Ages < [...] revised on 2018. Triglycerides 250(H) <=149 mg/dL [facility] Comment: Interpretive Data Ages < [...] revised on 2018. HDL 33(L) >=40 mg/dL [facility] Comment: Interpretive Data Ages < [...] on 2018. LDL, calculated 44 <=129 mg/dL [facility] Comment: Interpretive Data Ages < [...] revised on 2018. Non-HDL Cholesterol 94 mg/dL [facility] Comment: Interpretive Data Ages < [...] last revised on 2018. Chol/HDL ratio 4 [facility] Blood specimen (specimen) 11/01/2019 4:44 AM RECRUITING OPERATIONS CONSULTANT 11/01/2019 5:17 AM RECRUITING OPERATIONS CONSULTANT us Kenzie Amaya MD LAB BLOOD ORDERABLES Final Result [facility] [address] Department [place] [address] from Last 3 Months or Most Recently Relevant to Health Maintenance Insurance [facility] MEDICARE ADVANTAGE [facility] MEDICARE [facility] MEDICARE Address: [address] [place] [address] [facility] MEDICARE [facility] MEDIC[facility] Address: [facility] [id number] [place] [address] UHC MEDICARE ADVANTAGE [facility] MEDICARE [facility] MEDICARE Address: [address] [place] [address] Advance Directives For more information, please contact: [phone] Documents on File Type Date Recorded Patient Medical Billing Coder Expl anation ADVANCE DIRECTIVE 01/25/2024 2:02 AM POWER OF [employer] * Full Code (Latest Code Status on File) Date Activated Date Inactivated Comments 10/06/2024 6:40 PM 10/07/2024 3:38 PM * Full Code Date Activated Date Inactivated Comments 01/20/2024 12:53 PM 01/21/2024 4:25 PM * Full Code Date Activated Date Inactivated Comments 10/31/2019 7:01 PM 11/01/2019 6:11 PM Care Teams Reconstructive Surgeon Relationship Specialty Start Date End Date Roberto Saleem MD [address] [place] [address] PCP - General 10/31/19 Nomi Moore MD PhD [address] [facility] [address] [place] [address] Consulting Physician Neurology 11/01/19 Spencer Fulton MD [address] [address] Consulting Physician Orthopedic Surgery 10/26/23
--- OUTSIDE RECORDS SUMMARY | 2025-02-01 10:37 | XMS_ITS | Referral Summary ---
Author Organization [facility] at [facility] Office Center Address [address] [place] [address] Care Team Providers Care Straightening Roll Operator Name Role Phone Nomi Moore MD PhD Unavailable [phone] Roberto Saleem MD Primary Care Provider [phone] Spencer Fulton MD Unavailable [phone] Allergies Active Allergy Reactions Criticality Noted Date Comments Lisinopril Cough Low 10/21/2021 Morphine Itching Medium 10/21/2021 Oxycodone Mental status changes,Delusions Medium 04/2024 Medications hydroCHLOROthiazid e (HYDRODIURIL) 25 mg tablet Take 1 tablet (25 mg total) by mouth every morning Active levothyroxine (SYNTHROID) 100 mcg tablet Take 1 tablet (100 mcg total) by mouth ocular pathologist before breakfast Active carvedilol (COREG) 25 mg [...] tablet by mouth every morning Active omega 5-iwu-xhq-fish oil 1,000 mg (120 mg-180 mg) capsule [...] 09/27/2018 Assessment & Plan (10/20/2022 1:03 PM PLUMBING SERVICE TECHNICIAN): Patient seen today for 1 year [...] artery disease 11/01/2004 Overview (10/31/2019): stent placed [place] by Dr. Tompkins Immunizations Immunization Administration Dates [...] on file Legal Sex Male 12:37 PM PLUMBING SERVICE TECHNICIAN Gender Identity Male 02/02/2022 11:05 AM CDT Sexual Orientation Straight 02/02/2022 11 :05 AM CDT Last Filed Vital Signs Vital Sign Reading Time Taken Comments Blood Pressure 137/65 10/07/2024 8:35 AM PLUMBING SERVICE TECHNICIAN Pulse 84 10/07/2024 8:35 AM PLUMBING SERVICE TECHNICIAN Temperature 36.6 C (97.9 F) 10/07/2024 8:35 AM PLUMBING SERVICE TECHNICIAN Respiratory Rate 18 10/07/2024 8:35 AM PLUMBING SERVICE TECHNICIAN Oxygen Saturation 98% 10/07/2024 8:35 AM PLUMBING SERVICE TECHNICIAN Inhaled Oxygen Concentration - - Weight 124.7 kg (274 lb 14.6 oz) 10/06/2024 8:55 AM PLUMBING SERVICE TECHNICIAN Height 180.3 cm (5' 10.98 ) 10/06/2024 8:55 AM C Body Mass Index 38.36 10/06/2024 8:55 AM PLUMBING SERVICE TECHNICIAN Plan of Treatment Not on file Medical Devices Implanted Type Area Vocational Training Teacher Device Identifier Shelf Expiration Date Model / Serial / Lot Total Hip Bilatera l: Hip [employer] Triathlon Tritanium Knee 7 Baseplate Tibial 5536-B-700 - [id number] Implanted:Qty: 1 on 01/20/2024 by Spencer Fulton MD at [facility] Right: Knee [employer] [id number] 09/27/2028 5536-B-70 0 / / [id number] [employer] Triathlon Cruciate Retain Bead Knee Right 7 Component Femoral Pa 5517-F-702 - [id number] Implanted:Qty: 1 on 01/20/2024 by Spencer Fulton MD at [facility] Right: Knee [employer] [id number] 11/04/2027 5517-F-70 2 / / [id number] [employer] Tritanium 38mm 11mm Asymmetric Knee Component Patellar Metal 5552-L-381 - [id number] Implanted:Qty: 1 on 01/20/2024 by Spencer Fulton MD at [facility] Right: Knee [employer] [id number] 12/11/2025 5552-L-38 1 / / [id number] [employer] Insert Tibial Triathlon 7 H9mm Knee Bearing Condylar Stabilize Sterile 3313-L-320-E - [id number] Implanted:Qty: 1 on 01/20/2024 by Spencer Fulton MD at [facility] Right: Knee [employer] [id number] 08/14/2028 5531-G-70 9-E / / [id number] [employer] Tritanium 38mm 11mm Asymmetric Knee Component Patellar Metal 5552-L-381 - [id number] Implanted:Qty: 1 on 10/06/2024 by Spencer Fulton MD at [facility] Left: Knee [employer] [id number] 07/16/2029 5552-L-38 1 / / [id number] [employer] Triathlon Cruciate Retain Bead Knee Left 8 Component Femoral Pa 5517-F-801 - [id number] Implanted:Qty: 1 on 10/06/2024 by Spencer Fulton MD at [facility] Left: Knee [employer] [id number] 07/15/2027 5517-F-80 1 / / [id number] [employer] Insert Tibial Triathlon 7 H10mm Knee Bearing Condylar Stabilize Sterile 4551-S-488-E - [id number] Implanted:Qty: 1 on 10/06/2024 by Spencer Fulton MD at [facility] Left: Knee [employer] [id number] 05/18/2029 5531-G-71 0-E / / [id number] [employer] Triathlon Tritanium Knee 7 Baseplate Tibial 5536-B-700 - [id number] Implanted:Qty: 1 on 10/06/2024 by Spencer Fulton MD at [facility] Left: Knee [employer] [id number] 07/27/2029 5536-B-70 0 / / [id number] Procedures Procedure Name Priority Date/Time Associated Diagnosis Comments EGFR Routine 08/24/2024 11:09 AM CDT Preop testing HEMOGLOBIN A1C Routine 08/24/2024 11:09 AM CDT Preop testing LIPID PANEL Routine 11/01/2019 4:44 AM PLUMBING SERVICE TECHNICIAN from Last 3 Months or Most [...] RUBIO LAB BLOOD ORDERABLES Fin al Result [facility] [address] Department [place] [address] * (ABNORMAL) Hemoglobin A1c (08/24/2024 11:09 AM CDT) Hgb A1C 7.0(H) 4.0 - 5.6 % Estimated Average Glucose 154 mg/dL [facility] Comment: The ADA recommends reporting an estimated Average Glucose (eAG) with all Hemoglobin A1c results using the equation derived from a study of 507 normal and diabetic adults. Minority populations were underrepresented and children were not included. (Diabetes Care 31:6980-3364, 2008). The eAG is not equivalent to a fasting glucose. Blood 08/24/2024 11:0 9 AM CDT 08/24/2024 11:09 AM CDT us Tabby RUBIO LAB BLOOD ORDERABLES Fin al Result [facility] [address] Department [place] [address] * (ABNORMAL) Lipid panel (11/01/2019 4:44 AM PLUMBING SERVICE TECHNICIAN) Cholesterol 127 30 - 199 mg/dL [facility] Comment: Interpretive Data Ages < or [...] revised on 2018. Triglycerides 250(H) <=149 mg/dL [facility] Comment: Interpretive Data Ages < or [...] revised on 2018. HDL 33(L) >=40 mg/dL [facility] Comment: Interpretive Data Ages < or [...] on 2018. LDL, calculated 44 <=129 mg/dL [facility] Comment: Interpretive Data Ages < or [...] revised on 2018. Non-HDL Cholesterol 94 mg/dL [facility] Comment: Interpretive Data Ages < or [...] last revised on 2018. Chol/HDL ratio 4 [facility] Blood specimen (specimen) 11/01/2019 4:44 AM PLUMBING SERVICE TECHNICIAN 11/01/2019 5:17 AM PLUMBING SERVICE TECHNICIAN Kenzie Amaya MD LAB BLOOD ORDERABLES Final Result [facility] [address] Department [place] [address] from Last 3 Months or Most Recently Relevant to Health Maintenance Insurance [facility] MEDICARE ADVANTAGE [facility] MEDICARE Address: [address] [address] [place] [address] [facility] MEDICARE [facility] MEDICARE U[employer] MEDICARE ADVANTAGE [facility] MEDICARE Address: [address] [address] [place] [address] [facility] MEDIC[facility] Advance Directives For more information, please contact: [phone] Documents on File Type Date Recorded Patient Director Of Billing Expl anation ADVANCE DIRECTIVE 01/25/2024 2:02 AM POWER OF INSULATOR APPRENTICE-MEDICAL * Full Code (Latest Code Status on File) Date Activated Date Inactivated Comments 10/06/2024 6:40 PM 10/07/2024 3:38 PM * Full Code Date Activated Date Inactivated Comments 01/20/2024 12:53 PM 01/21/2024 4:25 PM * Full Code Date Activated Date Inactivated Comments 10/31/2019 7:01 PM 11/01/2019 6:11 PM Care Teams Straightening Roll Operator Relationship Specialty Start Date End Date Roberto Saleem MD [address] [place] [address] PCP - General 10/31/19 Nomi Moore MD PhD [address] [facility] [address] [place] [address] Consulting Physician Neurology 11/01/19 Spencer Fulton MD [address] [address] Consulting Physician Orthopedic Surgery 10/26/23
--- OUTSIDE RECORDS SUMMARY | 2025-02-01 10:37 | XMS_ITS | Clinical Summary ---
Author Organization [facility] Address [address] [place] [address] Care Team Providers Care Dental Surgery Doctor Name Role Phone Roberto Saleem MD Primary Care Provider [phone] Allergies Active Allergy Reactions Criticality Noted Date [...] Gel AndroGel Active Lancets (ONETOUCH DELICA PLUS [id number]) [facility] OneTouch Delica Plus Lancet 30 gauge Active Blood Glucose Monitoring Suppl (ONETOUCH PING METER REMOTE) Supplies [facility] OneFindTheBest Verio Flex Meter Active betamethasone dipropionate 0.05 [...] 2024 03/12/2022, 07/30/2021, 01/09/2021, Additional history exists Zoster Vaccines Completed 08/17/2019, [...] complete this topic Insurance [employer] Care Teams Dental Surgery Doctor Relationship Specialty Start Date End Date Roberto Saleem MD [address] - [facility] [address] [place] [address] PCP - General INTERNAL MEDICINE 02/17/22
== END 2025-02-01 09:56 | disposition home or self-care (01) ==
PROVIDERS: PCP Internal Medicine; Visit Provider Internal Medicine
DX: R19.8 Other specified symptoms and signs involving the digestive system and abdomen (principal)
CPT/HCPCS: 78227; A9537; J2805

== ENCOUNTER 2025-03-02 11:33 | Inpatient (IN) | payer MEDICARE, SELFPAY ==
[2025-03-02] VITALS (22 sets, daily range): BP systolic 125–148; BP diastolic 53–69; PULSE 57–76; RESP 14–25; TEMP 36.5–36.8; O2SAT 94–100; BMI 38.7
--- NOTE | ~2025-03-02 | XR_ITS ---
EXAMINATION: XR chest 2V DATE: 03/02/2025 12:19 INDICATION: Shortness of breath TECHNIQUE: PA and lateral views of the chest were obtained. COMPARISON: Chest radiograph dated 01/19/2025 FINDINGS: Small bilateral pleural effusions. Or linear and streaky predominant opacities in the bilateral lower lung zones. There appear to be a few peripheral septal lines at the lateral right lower lung zone miller ggesting superimposed mild pulmonary edema. No pneumothorax. The cardiomediastinal silhouette is norm al. IMPRESSION: 1. Small bilateral pleural effusions. 2. Opacities in the bilateral lower lung zones most likely combination of atelectasis and mild pulmon td edema although pneumonia not excludable. Reviewed, dictated and finalized at location A. IMPRESSION: 1. Small bilateral pleural effusions. 2. Opacities in the bilateral lower lung zones most likely combination of atele ctasis and mild pulmonary edema although pneumonia not excludable.
--- NOTE | 2025-03-02 11:43 | ECG_ITS ---
Test Date: 2025-03-02 11:47:47 Measurements Intervals [place] Rate: 66 P: 33 RI: 250 QRS: -14 QRSD: 119 T: 57 QT: 411 QTc: 434 Interpretive Statements SINUS RHYTHM WITH FIRST DEGREE AV BLOCK MODERATE INTRAVENTRICULAR CONDUCTION DELAY [110+ ms QRS DURATION] NONSPECIFIC T-WAVE ABNORMALITY Compared to ECG 01/19/2025 14:48:03 First degree AV block now present Intraventricular conduction delay now present T-wave abnormality now present Myocardial infarct finding no longer present Electronically Signed On 03-02-2025 19:11:34 CDT by Emery Olivo
--- NOTE | 2025-03-02 11:54 | ED.SOB ---
HPI - SOB/Dyspnea General Chief Complaint: Shortness of Breath/Dyspnea Stated Complaint: SHOB-Covid + 02/16 Time Seen by Provider: 03/02/25 11:49 History of Present Illness HPI Narrative: Pt presents with worsening SOB over the last 3 days. Pt says he has some SOB since being diagnosed with covid in early January but has gotten much worse the last 3 days. Pt says unable to lie flat now and gets SOB when he walks. Pt denies cough or fever or CP. Related Data Home Medications Medication Instructions Recorded Confirmed Last Taken Type testosterone (AndroGel) 2 pump topical DAILY 09/05/19 03/02/25 01/19/25 History aspirin 325 mg tablet 325 mg PO DAILY 11/27/19 03/02/25 01/18/25 History Centrum Silver 1 tab-cap PO DAILY 04/23/20 03/02/25 01/19/25 History omega-3 fatty acids 1,000 mg 3,000 mg PO DAILY 05/16/20 03/02/25 01/19/25 History capsule (Fish Oil Concentrate) psyllium husk 0.52 gram capsule 1.04 g PO HS 02/20/21 03/02/25 01/18/25 History (Metamucil) vibegron 75 mg tablet (Gemtesa) [address] Fajardo 09/08/23 03/02/25 01/19/25 History cholecalciferol (vitamin D3) 50 50 mcg PO DAILY 10/13/23 03/02/25 01/19/25 History mcg (2,000 unit) capsule glimepiride 2 mg tablet 2 mg PO QAM 01/23/25 03/02/25 Unknown History atorvastatin 80 mg tablet 40 mg PO DAILY 03/02/25 03/02/25 Unknown History Allergies Allergy/AdvReac Type Severity Reaction Status Date / Time morphine Allergy Intermediate Itching Verified 02/27/25 10:37 oxycodone (From Percocet) AdvReac Severe Confusion Verified 02/27/25 10:37 MARIA LUZ Inhibitors AdvReac Mild Cough Verified 02/27/25 10:37 lisinopril AdvReac Mild Cough Verified 02/27/25 10:37 Review of Systems Review of Systems: All systems reviewed & are unremarkable except as noted in HPI and below PMFSH Past Medical History Medical History CTS (carpal tunnel syndrome) BMI 38.0-38.9,adult Chronic pain of right knee Lung nodule Gout Insomnia Ruptured abdominal aortic aneurysm s/p repair, being monitored Seizure-like activity Testosterone deficiency Post-op pain Chronic low back pain LOUANN (obstructive sleep apnea) Dysphagia Elevated homocysteine Hx of transient ischemic attack (TIA) Bladder cancer Hypothyroidism (acquired) History of CVA (cerebrovascular accident) Hearing loss DM type 2 (diabetes mellitus, type 2) Prostate cancer screening DJD (degenerative joint disease), multiple sites [facility] drug therapy Mixed hyperlipidemia Colon cancer screening Benign essential hypertension ASHD (arteriosclerotic heart disease) Surgical History Surgical History History of bilateral knee replacement Status post total knee replacement, left Status post total knee replacement, right History of intravascular stent placement Hx of hernia repair Status post urethral surgery S/P AAA repair History of total hip replacement Family History Family History Father Diabetes mellitus Family history of coronary artery disease Family history of diabetes mellitus in first degree relative Mother Family history of cardiovascular disease Family history of malignant neoplasm of brain Family history of heart disease in male family member before age 55 Social History Social History Social History: Smoking packs per day: 1 Smoking cigarettes per day: 20.0 Years smoked: 50 Smoking pack-years: 50.00 Smoking status: Former smoker Tobacco type: cigarettes Second hand tobacco smoke exposure: Yes Smoking end date: 11/01/04 Alcohol intake: current Drinks per week: 14 Alcohol use details: Daily; COCKTAILS AND WINE Substance use: never Substance use type: does not use Do You Feel Safe in your Home?: Yes Lack of Transportation: No Lack of Food: Never True Current Housing: I Have Housing Concerned About Future Housing: No Difficulty Paying Gas/Electric Bills: No Difficulty Paying for Meds: No Currently Unemployed: No Education: Master's Degree or Higher Difficulty w/ Childcare or Family Care: No Living arrangements: alone Occupation/Education: retired Gender identity (if verbalized by the patient): Male Spiritual care concerns: No Agree to blood products: Yes Exam Const: General: healthy appearing and no acute distress Nutritional Appearance: well nourished Orientation/consciousness: patient oriented x3 Limitations: no limitations Resp: Effort & Inspection: normal respiratory effort Auscultation: crackles Cardio: Rate: regular rate Rhythm: regular rhythm GI: GI Palp: Yes Soft to palpation Auscultation: normal bowel sounds Back/Spine/Pelvis: Back: no CVA tenderness Skin: General skin exam: normal color Rashes: no rashes Wounds: no wounds Neuro: General: patient oriented x3 and moves all extremities Cranial nerves: Yes Nystagmus not present Speech: normal speech Extrem: General: edema Psych: Mental Status: mental status grossly normal Affect: normal affect Attitude: cooperative Course Vital Signs Vital signs: Vital Signs Temperature 98.2 F 03/02/25 11:38 Pulse Rate 63 03/02/25 11:38 Respiratory Rate 16 03/02/25 11:38 Blood Pressure 146/65 H 03/02/25 11:38 Pulse Oximetry 98 03/02/25 11:38 Temperature 98.2 F 03/02/25 11:38 Pulse Rate 69 03/02/25 13:31 Respiratory Rate 23 H 03/02/25 13:31 Blood Pressure 143/69 H 03/02/25 13:31 Pulse Oximetry 94 03/02/25 13:31 Oxygen Delivery Room Air 03/02/25 15:30 MDM - SOB/Dyspnea MDM Narrative Medical decision making narrative: Pt presents with worseining SOB. Need to rule out chf or cad or pneumonia. doubt PE. will start with labs and cxr and ekg. pt has some b/l pleural effusion s and bnp up a bit trop fine ekg fine. pt has no hx of chf. will give lasix and discuss with HM about admission. discussed with Reny orosco start antibiotics for pneumonia and will accept for admit Lab Data 03/02/25 11:56 03/02/25 11:56 Labs: Lab Results 03/02/25 Range/Units 11:56 WBC 7.0 (4.5-10.0) K/mm3 RBC 4.43 L (4.6-6.20) M/mm3 Hgb 13.0 L (14.0-18.0) g/dL Hct 41.3 L (42.0-52.0) % MCV 93.2 (80-100) fl MCH 29.3 (26-34) pg MCHC 31.5 L (32-36) g/dl RDW 15.9 H (11.5-14.5) % Plt Count 162 (150-375) k/mm3 MPV 9.5 (7.4-10.4) fl Immature Gran % (Auto) 0.6 H (0-0.5) % Neut % (Auto) 67.9 (45.5-73.1) % Lymph % (Auto) 16.9 L (18.3-44.2) % [place] % (Auto) 11.0 H (2.6-8.5) % Eos % (Auto) 2.9 (0-4.4) % Baso % (Auto) 0.7 (0.2-1.2) % Lymph # (Auto) 1.18 (0.9-3.2) K/mm3 [place] # (Auto) 0.8 H (0.1-0.6) K/mm3 Eos # (Auto) 0.2 (0-0.3) K/mm3 Baso # (Auto) 0.1 (0.0-0.1) K/mm3 Abs Immat Gran (auto) 0.04 H (0.00-0.031) K/mm3 Absolute Neuts (auto) 4.7 (1.3-6.7) K/mm3 Absolute Nucleated RBC 0.000 (0.0-0.012) K/mm3 Nucleated RBC % 0.0 (0.0-0.2) % PT 14.3 (11.1-14.7) Seconds INR 1.1 APTT 30.2 (22.3-36.8) Seconds Sodium 140 (137-145) mmol/L Potassium 4.4 (3.4-5.0) mmol/L Chloride 105 (98-107) mmol/L Carbon Dioxide 25 (22-30) mmol/L Anion Gap 10 (4-12) mmol/L BUN 18 D (9-20) mg/dL Creatinine 0.82 (0.7-1.3) mg/dL Estim Creat Clear Calc 82 ml/min Estimated GFR > 60 (59 - ) Glucose 143 H (65-110) mg/dL Calcium 9.8 (8.4-10.2) mg/dL Total Bilirubin 1.0 (0.2-1.3) mg/dL AST 28 (17-59) U/L ALT 25 (6-50) U/L Alkaline Phosphatase 106 (38-126) U/L Troponin I 0.022 (0.000-0.034) ng/mL NT-Pro-B Natriuret Pep 422 H (19.9-100) pg/mL Total Protein 8.0 (6.3-8.2) g/dL Albumin 4.4 (3.5-5.1) g/dL Discharge Plan Discharge Clinical Impression: CHF (congestive heart failure) Qualifiers: Heart failure type: diastolic Heart failure chronicity: acute on chronic Qualified Code(s): I50.33 - Acute on chronic diastolic (congestive) heart failure Patient Disposition: Still a Patient Condition: Stable
[2025-03-02 12:02] LABS: Basophils Absolute Auto 0.1 K/mm3 (0.0-0.1); Basophils Percent Auto 0.7 % (0.2-1.2); Eosinophils Absolute Auto 0.2 K/mm3 (0-0.3); Eosinophils Percent Auto 2.9 % (0-4.4); Hematocrit 41.3 % (42.0-52.0); Immature Granulocyte Absolute 0.04 K/mm3 (0.00-0.031); Immature Granulocyte Percent A 0.6 % (0-0.5); Lymphocytes Absolute Auto 1.18 K/mm3 (0.9-3.2); Lymphocytes Percent Auto 16.9 % (18.3-44.2); Mean Corpuscular HGB Conc 31.5 g/dl (32-36); Mean Corpuscular Hemoglobin 29.3 pg (26-34); Mean Corpuscular Volume 93.2 fl (80-100); Mean Platelet Volume 9.5 fl (7.4-10.4); Monocytes Absolute Auto 0.8 K/mm3 (0.1-0.6); Neutrophils Absolute Auto 4.7 K/mm3 (1.3-6.7); Neutrophils Percent Auto 67.9 % (45.5-73.1); Platelet Count Result 162 k/mm3 (150-375); Red Blood Count 4.43 M/mm3 (4.6-6.20); Red Cell Distribution Width 15.9 % (11.5-14.5)
[2025-03-02 12:14] LABS: INR 1.1; Prothrombin Time 14.3 Seconds (11.1-14.7)
[2025-03-02 12:15] LABS: Partial Thromboplastin Time 30.2 Seconds (22.3-36.8)
[2025-03-02 12:22] LABS: Alanine Aminotransferase 25 U/L (6-50); Albumin Level 4.4 g/dL (3.5-5.1); Alkaline Phosphatase 106 U/L (38-126); Anion Gap 10 mmol/L (4-12); Aspartate Amino Transferase 28 U/L (17-59); Blood Urea Nitrogen 18 mg/dL (9-20); Calcium 9.8 mg/dL (8.4-10.2); Carbon Dioxide 25 mmol/L (22-30); Chloride 105 mmol/L (98-107); Estimated CRCL calculation 82 ml/min; Estimated Glomerular Filt Rate > 60; Glucose 143 mg/dL (65-110); Potassium 4.4 mmol/L (3.4-5.0); Sodium 140 mmol/L (137-145)
[2025-03-02 12:38] LABS: NT Pro B Type Natriuretic Pept 422 pg/mL (19.9-100); Troponin I 0.022 ng/mL (0.000-0.034)
[2025-03-02] MEDS: FUROSEMIDE INJ 40 MG/4 ML VIAL IV PUSH (14:18)
--- NOTE | 2025-03-02 14:18 | P.HP_ITS ---
H&P: HPI History of Present Illness Date/Time: 03/02/25 14:18 Chief Complaint: Shortness of Breath Narrative: 84 y/o M with PMH of gout, abdominal aortic aneurysm (ruptured, s/p repair), LOUANN, TIA, bladder cancer, hypothyroidism, CVA, diabetes, hyperlipidemia, and hypertension presents here with shortness of breath. The patient presents here from home for further evaluation of shortness of breath on 03/02. He reports onset of shortness of breath/orthopnea starting Wednesday. He notes that he tested positive for COVID approximately 2 weeks ago on 02/16/2025. Shortness of breath is accompanied by dry cough and feels like his legs are tight (but not swollen). He denies chest pain, fever, chills, body aches, abdominal pain weight gain, or lower extremity edema. Prescribed cefdinir 300 mg b.i.d. times 10 days on 02/24/2025 for an upper respiratory infection. He remains congested. Initial VS at presentation: 98.2° F, HR 63, R 16, 146/65, and 98% on RA. ED workup showed: No leukocytosis, hemoglobin 13.0, normal coags, no significant electrolyte derangements, creatinine 0.82 and GFR >60, glucose 143, BNP 422 (normal for age), and initial troponin was 0.022. CXR showed small bilateral pleural effusions and opacities in the bilateral lower lung zones (atelectasis and mild pulmonary edema favored, pneumonia cannot be excluded). Review of Systems Review of Systems: All systems reviewed & are unremarkable except as noted in HPI and below PMFSH Past Medical History Medical History CTS (carpal tunnel syndrome) BMI 38.0-38.9,adult Chronic pain of right knee Lung nodule Gout Insomnia Ruptured abdominal aortic aneurysm s/p repair, being monitored Seizure-like activity Testosterone deficiency Post-op pain Chronic low back pain LOUANN (obstructive sleep apnea) Dysphagia Elevated homocysteine Hx of transient ischemic attack (TIA) Bladder cancer Hypothyroidism (acquired) History of CVA (cerebrovascular accident) Hearing loss DM type 2 (diabetes mellitus, type 2) Prostate cancer screening DJD (degenerative joint disease), multiple sites On [facility] drug therapy Mixed hyperlipidemia Colon cancer screening Benign essential hypertension ASHD (arteriosclerotic heart disease) Surgical History Surgical History History of bilateral knee replacement Status post total knee replacement, left Status post total knee replacement, right History of intravascular stent placement Hx of hernia repair Status post urethral surgery S/P AAA repair History of total hip replacement Family History Family History Father Diabetes mellitus Family history of coronary artery disease Family history of diabetes mellitus in first degree relative Mother Family history of cardiovascular disease Family history of malignant neoplasm of brain Family history of heart disease in male family member before age 55 Social History Social History Social History: Smoking packs per day: 1 Smoking cigarettes per day: 20.0 Years smoked: 50 Smoking pack-years: 50.00 Smoking status: Former smoker Tobacco type: cigarettes Second hand tobacco smoke exposure: Yes Smoking end date: 11/01/04 Alcohol intake: current Drinks per week: 14 Alcohol use details: Daily; COCKTAILS AND WINE Substance use: never Substance use type: does not use Do You Feel Safe in your Home?: Yes Lack of Transportation: No Lack of Food: Never True Current Housing: I Have Housing Concerned About Future Housing: No Difficulty Paying Gas/Electric Bills: No Difficulty Paying for Meds: No Currently Unemployed: No Education: Master's Degree or Higher Difficulty w/ Childcare or Family Care: No Living arrangements: alone Occupation/Education: retired Gender identity (if verbalized by the patient): Male Spiritual care concerns: No Agree to blood products: Yes Meds Home Medications and Allergies Home Medications Medication Instructions Recorded Confirmed Type testosterone (AndroGel) 2 pump topical DAILY 09/05/19 03/02/25 History aspirin 325 mg tablet 325 mg PO DAILY 11/27/19 03/02/25 History Centrum Silver 1 tab-cap PO DAILY 04/23/20 03/02/25 History omega-3 fatty acids 1,000 mg 3,000 mg PO DAILY 05/16/20 03/02/25 History capsule (Fish Oil Concentrate) psyllium husk 0.52 gram capsule 1.04 g PO HS 02/20/21 03/02/25 History (Metamucil) blood-glucose meter (Blood Glucose #1 ea 11/04/22 03/02/25 Rx Monitoring kit) lancets 23 gauge #100 ea 11/04/22 03/02/25 Rx vibegron 75 mg tablet (Gemtesa) [address] Fajardo 09/08/23 03/02/25 History cholecalciferol (vitamin D3) 50 50 mcg PO DAILY 10/13/23 03/02/25 History mcg (2,000 unit) capsule hydrochlorothiazide 25 mg tablet See Rx Instructions .Route 08/01/24 03/02/25 Rx .COMPLEX #90 tabs celecoxib 200 mg capsule (Celebrex) 200 mg PO BID #180 caps 09/22/24 03/02/25 Rx candesartan 32 mg tablet See Rx Instructions .Route 10/24/24 03/02/25 Rx .COMPLEX #90 tabs carvedilol 25 mg tablet See Rx Instructions .Route 10/24/24 03/02/25 Rx .COMPLEX #180 tabs levothyroxine 100 mcg tablet See Rx Instructions .Route 10/24/24 03/02/25 Rx .COMPLEX #90 tabs metformin 500 mg tablet See Rx Instructions .Route 11/04/24 03/02/25 Rx .COMPLEX #90 tabs allopurinol 300 mg tablet See Rx Instructions .Route 01/16/25 03/02/25 Rx .COMPLEX #90 tabs glimepiride 2 mg tablet 2 mg PO QAM 01/23/25 03/02/25 History linagliptin 5 mg tablet (Tradjenta) See Rx Instructions .Route 01/23/25 03/02/25 Rx .COMPLEX #90 tabs dapagliflozin propaned 10 1 tablet PO DAILY #90 tabs 01/25/25 03/02/25 Rx mg-metformin ER 1,000 mg tablet,ext rel 24hr blood sugar diagnostic (True #50 strips 01/26/25 03/02/25 Rx Metrix Glucose Test Strip) lorazepam 1 mg tablet 1 mg PO BID PRN anxiety #60 tabs 02/09/25 03/02/25 Rx amlodipine 10 mg tablet See Rx Instructions .Route 02/28/25 03/02/25 Rx .COMPLEX #90 tabs atorvastatin 80 mg tablet 40 mg PO DAILY 03/02/25 03/02/25 History Allergies Allergy/AdvReac Type Severity Reaction Status Date / Time morphine Allergy Intermediate Itching Verified 02/27/25 10:37 oxycodone (From Percocet) AdvReac Severe Confusion Verified 02/27/25 10:37 MARIA LUZ Inhibitors AdvReac Mild Cough Verified 02/27/25 10:37 lisinopril AdvReac Mild Cough Verified 02/27/25 10:37 Vital Signs Vital Signs - 24 hr 03/02/25 11:38 03/02/25 11:45 03/02/25 11:55 Temperature 98.2 F Pulse Rate 63 64 Respiratory Rate 16 25 H Blood Pressure 146/65 H 148/69 H Pulse Oximetry 98 96 Oxygen Delivery 03/02/25 12:00 03/02/25 12:01 03/02/25 12:05 Temperature Pulse Rate 62 61 Respiratory Rate 15 17 Blood Pressure 129/68 Pulse Oximetry 98 98 98 Oxygen Delivery Room Air Exam Const: General: comfortable and no acute distress Other: , male, nontoxic appearance HENMT: Face/Nose/Sinus: Normal nares present Mouth: Yes moist mucous membranes Eyes: General: appearance normal, both eyes and all related structures Sclera: sclerae normal Pupils: Equal, round and reactive pupils present EOM: EOMs intact bilaterally Resp: Effort & Inspection: normal respiratory effort Other: Slightly diminished at bases bilaterally. Intermittent expiratory wheeze, not well appreciated. No crackles or rhonchi on exam. Cardio: Rate: regular rate Rhythm: regular rhythm Other: S1-S2 present without murmur, rub, ectopy GI: Other: Abdomen nondistended, mildly firm, no tenderness, normoactive bowel sounds in all quadrants. Skin: General skin exam: normal color and no rashes or lesions noted Wounds: no wounds Neuro: Speech: normal speech Motor exam (neuro): 5/5 motor strength present throughout Sensory Exam: normal sensation Other: A/Ox4 Extrem: General: normal to inspection Psych: Mental Status: mental status grossly normal Affect: normal affect Other: Good insight and judgment, very pleasant H&P: Results Labs Labs: Short CBC 03/02/25 Range/Units 11:56 WBC 7.0 (4.5-10.0) K/mm3 Hgb 13.0 L (14.0-18.0) g/dL Hct 41.3 L (42.0-52.0) % Plt Count 162 (150-375) k/mm3 [facility] 03/02/25 11:56 Sodium 140 Potassium 4.4 Chloride 105 Carbon Dioxide 25 BUN 18 D Creatinine 0.82 Glucose 143 H Calcium 9.8 Cardiac Enzymes 03/02/25 Range/Units 11:56 Troponin I 0.022 (0.000-0.034) ng/mL Liver Function 03/02/25 Range/Units 11:56 Total Bilirubin 1.0 (0.2-1.3) mg/dL AST 28 (17-59) U/L ALT 25 (6-50) U/L Alkaline Phosphatase 106 (38-126) U/L Albumin 4.4 (3.5-5.1) g/dL Assessment and Plan Assessment and plan (1) SOB (shortness of breath): Code(s): R06.02 - Shortness of breath Status: Acute Assessment and Plan: - CXR: 1. Small bilateral pleural effusions. 2. Opacities in the bilateral lower lung zones most likely combination of atelectasis and mild pulmonary edema although pneumonia not excludable. - BNP 422, normal for age. Reporting LE edema and possible edema on CXR. See plan below. - recent COVID, + on 02/16. Increased concern for PNA component. - no current O2 requirement, monitor. Start diuresis for possible CHF exacerbation (hx of diastolic dysnfunction) and abx for CAP. (2) CHF (congestive heart failure): Qualifiers: Heart failure chronicity: acute on chronic Heart failure type: diastolic Qualified Code(s): I50.33 - Acute on chronic diastolic (congestive) heart failure Code(s): I50.9 - Heart failure, unspecified Status: Acute Assessment and Plan: - history of grade 1 diastolic dysfunction, suspicion for acute on chronic CHF exacerbation - BNP 422, normal for age. However clinical signs of volume overload (peripheral edema, orthopnea) and on imaging. -> Update echo - most recent echo (11/2022): Normal systolic function, estimated EF 60 65%, grade 1 diastolic dysfunction, no pulmonary hypertension, mild AV sclerosis, global longitudinal strain is abnormal. - patient not on a daily diuretic, start Lasix 40 mg IV daily. On HCTZ, continue. - monitor I&Os and daily weights - trend renal function (3) Pneumonia: Qualifiers: Pneumonia type: due to COVID-19 virus Qualified Code(s): U07.1 - COVID- 19; J12.82 - Pneumonia due to coronavirus disease 2019 Code(s): J18.9 - Pneumonia, unspecified organism Status: Acute Assessment and Plan: - did not meet SIRS criteria. however blood cultures obtained on 03/02, follow. 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 Continue glimepiride, Tradjenta. - correct regimen ordered - high dose TIDWM, based off BMI - A1C 6.6% on 09/2024, update (5) Benign essential hypertension: Code(s): I10 - Essential (primary) hypertension Status: Acute Assessment and Plan: - chronic, currently 129/68 - continue home medications: Amlodipine, Coreg, HCTZ, candesartan - monitor (6) LOUANN (obstructive sleep apnea): Code(s): G47.33 - Obstructive sleep apnea (adult) (pediatric) Status: Acute Assessment and Plan: - continue home CPAP Plan Diet: Heart healthy GI Prophylaxis: Not currently indicated DVT Prophylaxis: Lovenox SQ IV fluids: None Lines/Tubes: Peripheral IV Code Status: Full code Quality VTE Prophylaxis VTE prophylaxis: pharmacologic ordered Hospitalist [facility] Advance Care Plan I have confirmed that the patient's Advanced Care Plan is present, code status is documented, or surrogate decision maker is listed in patient medical record.: Yes Medication Reconciliation I have utilized all available resources to obtain, update and review the patients current medications (includes all prescriptions, OTC, herbals, cannabis, and nutritional supplements).: Yes
--- NOTE | 2025-03-02 15:40 | ADMGEN ---
This patient, Reynold Machado, was admitted to 2 Medical Room 259-01. Patient/family oriented to hospital policies and general routines including ID bracelet, bed and alarms, visiting hours, pain management, procedures, bathroom and other care routines, personal items, smoking policy, room service/diet, and visiting hours. Information on how to activate the Rapid Response Team has been discussed. Patient/Family are encouraged to report perceived risks to care and to ask questions if they do not understand what they are told or what they should do.
[2025-03-02 16:54] LABS: Glucose Point of Care 116 mg/dl (65-105)
[2025-03-02] MEDS: CELECOXIB 200 MG CAPSULE PO (17:03)
[2025-03-02] MEDS: cefTRIAXone 2 GM/NS 100 ML 2 GM/100 ML BAG IVPB (17:04)
[2025-03-02] MEDS: AZITHROMYCIN 500 MG/NS 250 ML 500 MG/250 ML BAG 250 MG IVPB (17:52)
[2025-03-02] MEDS: IPRATROPIUM 0.5 MG/ALBUTEROL SULFATE 2.5 MG AMPUL.NEB 3 ML INHALATION (19:25)
[2025-03-02] MEDS: PSYLLIUM SUGAR FREE POWDER PACKET 1 PACKET PO (19:44)
[2025-03-02] MEDS: guaiFENesin 12 HR 600 MG TABCR PO (19:45)
[2025-03-02] MEDS: carvediloL 25 MG TABLET PO (19:45)
--- NOTE | 2025-03-03 | ECHO_ITS ---
Patient Info Name: Reynold Machado Age: 84 years : 1940 Gender: Male Ht: 71 in Wt: 277 lbs BSA: 2.56 m2 HR: 64 bpm BP: 138 / 55 mmHg Heart Rhythm: Sinus Rhythm Technical Quality: Fair Exam Date: 03/03/2025 7:46 AM Exam Location: Echo Lab Patient Status: Inpatient Admit Date: 03/02/2025 Staff Ordering Physician: Reny Alexis APRN [employer] Technician: Josie Garcia RDCS Attending Provider: Neal White MD Referring Physician: Reuben BROWN; Exam Type: CA echo doppler color flow Study Info Indications - Orthopnea, Pulmonary edema on imaging Complete two-dimensional, color flow and Doppler transthoracic echocardiogram is performed. Summary 1. Complete two-dimensional, color flow and Doppler transthoracic echocardiogram is performed. 2. Left ventricular systolic function is normal, estimated at 60-65%. 3. The left ventricular diastolic function is abnormal. 4. There is moderately increased left ventricular wall thickness. 5. Right ventricular chamber dimension is mildly enlarged. 6. Right ventricular systolic function is normal. 7. Left atrial chamber dimension is mildly enlarged. 8. There is trace mitral valve regurgitation. 9. There is mild tricuspid valve regurgitation. 10. Mild pulmonary hypertension, estimated pulmonary arterial systolic pressure is 39 mmHg. Left Ventricle Left ventricular chamber dimension is normal. Left ventricular systolic function is normal, estimated at 60-65%. There is moderately increased left ventricular wall thickness. Left ventricular septal wall motion is normal. The left ventricular diastolic function is abnormal. Right Ventricle Right ventricular chamber dimension is mildly enlarged. Right ventricular systolic function is normal. Left Atria Left atrial chamber dimension is mildly enlarged. Right Atria Right atrial chamber dimension is normal. Aortic Valve The aortic valve is trileaflet. There is mild aortic valve sclerosis. There is no aortic valve stenosis. There is no aortic valve regurgitation. Pulmonic Valve The pulmonic valve is normal. There is no pulmonic valve stenosis. There is no pulmonic regurgitation. Mitral Valve The mitral valve has normal leaflets. There is no mitral valve stenosis. There is trace mitral valve regurgitation. Tricuspid Valve The tricuspid valve leaflets are normal. There is no significant tricuspid valve stenosis. There is mild tricuspid valve regurgitation. Mild pulmonary hypertension, estimated pulmonary arterial systolic pressure is 39 mmHg. Pericardium/Pleural The pericardium appears normal. There is no pericardial effusion. Inferior Vena Cava Dilated inferior vena cava with >50% collapse upon inspiration consistent with elevated right atrial pressure, 10 mmHg. Aorta The aortic root size at the sinus of Valsalva is normal. The prox ascending aorta size is normal. Left Ventricular Outflow Tract Name Value Normal LVOT 2D LVOT Diameter 2.1 cm LVOT Doppler LVOT Peak Gradient 4 mmHg LVOT Mean Gradient 2 mmHg LVOT VTI 22 cm LVOT VTI/AV VTI Ratio 0.7 LVOT Stroke Volume 76 ml LVOT CO 5.7 l/min LVOT CI 2.2 l/min/m2 Pulmonic Valve Name Value Normal RVOT Doppler RVOT Peak Gradient 2 mmHg PV Doppler PV Peak Gradient 5 mmHg Mitral Valve Name Value Normal MV Doppler MV Decel [place] 827 cm/s2 MV PHT 38 ms MV Area (PHT) 5.7 cm2 4.0-5.0 MV Diastolic Function MV E Peak Velocity 109 cm/s MV A Peak Velocity 82 cm/s MV E/A 1.3 MV Decel Time 132 ms MV Annular TDI MV E/e' (Septal) 13.9 <=8.0 MV E/e' (Lateral) 13.3 <=8.0 MV E/e' (Average) 13.6 Tricuspid Valve Name Value Normal TV Regurgitation Doppler TR Peak Velocity 271 cm/s TR Peak Gradient 29 mmHg Estimated PAP/RSVP RA Pressure 10 mmHg <=5 PA Systolic Pressure 39 mmHg <36 RV Systolic Pressure 39 mmHg <36 Aortic Valve Name Value Normal AV Doppler AV Peak Velocity 146 cm/s AV Peak Gradient 9 mmHg AV Mean Gradient 5 mmHg AV VTI 33 cm AV Area (Cont Eq VTI) 2.3 cm2 >=3.0 AV Area (Cont Eq Ranjith) 2.1 cm2 AV Regurgitation 2D LVOT Area 3.4 cm2 Ventricles Name Value Normal LV Dimensions 2D/MM IVS Diastolic Thickness (2D) 1.6 cm 0.6-1.0 LVID Diastole (2D) 4.6 cm 4.2-5.8 LVIW Diastolic Thickness (2D) 1.5 cm 0.6-1.0 LVID Systole (2D) 3.3 cm 2.5-4.0 LVOT Diameter 2.1 cm LV Mass (2D Cubed) 306.54 g 88.00-224.00 LV Mass Index (2D Cubed) 120 g/m2 49-115 Relative Wall Thickness (2D) 0.67 LV Fractional Shortening/Ejection Fraction 2D/MM LV Fractional Shortening (2D) 29 % 25-43 LV EF (2D Teicholz) 55 % 52-72 LV Diastolic Volume (4C MOD) 246 ml LV EF (4C MOD) 71 % LV Diastolic Volume (2C MOD) 216 ml LV EF (2C MOD) 63 % LV Diastolic Volume (BP MOD) 231 ml 62-150 LV Diastolic Volume Index (BP MOD) 90 ml/m2 34-74 LV Systolic Volume (BP MOD) 84 ml 21-61 LV Systolic Volume Index (BP MOD) 33 ml/m2 11-31 LV EF (BP MOD) 64 % 52-72 LV Diastolic Length (4C) 10.7 cm LV Systolic Length (4C) 9.3 cm LV Stroke Volume (4C MOD) 174 ml Atria Name Value Normal LA Dimensions LA Volume (4C A-L) 136 ml LA Volume (BP A-L) 125 ml Report Signatures
[2025-03-03] MEDS: LORazepam (*CRX) 1 MG TABLET PO ×2 (00:34→21:56)
[2025-03-03] MEDS: WATER FOR IRRIGATION, STERILE 500 ML BOTTLE (00:37)
[2025-03-03 03:08] VITALS: BP 138/55; PULSE 64; RESP 20; TEMP 36.6; O2SAT 94
[2025-03-03 05:03] LABS: Basophils Percent Auto 0.6 % (0.2-1.2); Eosinophils Absolute Auto 0.2 K/mm3 (0-0.3); Eosinophils Percent Auto 3.4 % (0-4.4); Hematocrit 36.2 % (42.0-52.0); Hemoglobin 11.6 g/dL (14.0-18.0); Immature Granulocyte Absolute 0.01 K/mm3 (0.00-0.031); Immature Granulocyte Percent A 0.2 % (0-0.5); Lymphocytes Absolute Auto 1.16 K/mm3 (0.9-3.2); Lymphocytes Percent Auto 18.8 % (18.3-44.2); Mean Corpuscular Hemoglobin 29.5 pg (26-34); Mean Corpuscular Volume 92.1 fl (80-100); Mean Platelet Volume 9.7 fl (7.4-10.4); Monocytes Absolute Auto 0.7 K/mm3 (0.1-0.6); Monocytes Percent Auto 11.7 % (2.6-8.5); Neutrophils Percent Auto 65.3 % (45.5-73.1); Platelet Count Result 142 k/mm3 (150-375); Red Blood Count 3.93 M/mm3 (4.6-6.20); Red Cell Distribution Width 15.9 % (11.5-14.5); White Blood Count 6.2 K/mm3 (4.5-10.0)
[2025-03-03 05:14] LABS: Anion Gap 8 mmol/L (4-12); Blood Urea Nitrogen 16 mg/dL (9-20); Calcium 9.2 mg/dL (8.4-10.2); Carbon Dioxide 25 mmol/L (22-30); Chloride 104 mmol/L (98-107); Estimated CRCL calculation 88 ml/min; Estimated Glomerular Filt Rate > 60; Glucose 123 mg/dL (65-110); Potassium 3.5 mmol/L (3.4-5.0); Sodium 137 mmol/L (137-145)
[2025-03-03 05:31] LABS: Hemoglobin A1C 7.3 % (<5.7)
[2025-03-03] MEDS: LEVOTHYROXINE SODIUM 100 MCG TABLET PO (05:41)
--- NOTE | 2025-03-03 07:33 | P.PNIM_ITS ---
Progress Note: A&P Assessment and Plan (1) SOB (shortness of breath): Code(s): R06.02 - Shortness of breath Status: Acute Assessment and Plan: Pt denies SOB and edema today. - CXR: 1. Small bilateral pleural effusions. 2. Opacities in the bilateral lower lung zones most likely combination of atelectasis and mild pulmonary edema although pneumonia not excludable. - BNP 422, normal for age. Reporting LE edema and possible edema on CXR. See plan below. - recent COVID, + on 02/16. Increased concern for PNA component. - no current O2 requirement, monitor - stable overnight. Start diuresis for possible CHF exacerbation (hx of diastolic dysfunction) and abx for CAP. (2) CHF (congestive heart failure): Qualifiers: Heart failure chronicity: acute on chronic Heart failure type: diastolic Qualified Code(s): I50.33 - Acute on chronic diastolic (congestive) heart failure Code(s): I50.9 - Heart failure, unspecified Status: Acute Assessment and Plan: - History of grade 1 diastolic dysfunction, suspicion for acute on chronic CHF exacerbation - BNP 422, normal for age. However clinical signs of volume overload (peripheral edema, orthopnea) and on imaging. 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 - patient not on a daily diuretic, start Lasix 40 mg IV daily. On HCTZ, continue. - monitor I&Os and daily weights - trend renal function (3) Pneumonia: Qualifiers: Pneumonia type: due to COVID-19 virus Qualified Code(s): U07.1 - COVID- 19; J12.82 - Pneumonia due to coronavirus disease 2019 Code(s): J18.9 - Pneumonia, unspecified organism Status: Acute Assessment and Plan: - did not meet SIRS criteria. However, blood cultures obtained on 03/02, follow. - CXR showed possible bibasilar pneumonia - risk factors and complicating factors: Recent COVID infection - started on CAP tx: Ceftriaxone and azithromycin on 03/02 - supportive care - monitor WBC and O2 sat, VSS - Denies SOB or CP today (4) DM type 2 (diabetes mellitus, type 2): Qualifiers: Diabetes mellitus complication status: without complication Diabetes mellitus [facility] insulin use: without [facility] use Qualified Code(s): E11.9 - Type 2 diabetes mellitus without complications Code(s): E11.9 - Type 2 diabetes mellitus without complications Status: Acute Assessment and Plan: - hypoglycemia protocol - POC blood glucose ACHS - Home medication: Hold metformin and dapagliflozin-metformin. Continue glimepiride, Tradjenta. - correct regimen ordered - high dose TIDWM, based off BMI - Updated A1C% 7.3 -->F/u with PCP (5) Benign essential hypertension: Code(s): I10 - Essential (primary) hypertension Status: Acute Assessment and Plan: - chronic, currently controlled inpt - continue home medications: Amlodipine, Coreg, HCTZ, candesartan - monitor (6) LOUANN (obstructive sleep apnea): Code(s): G47.33 - Obstructive sleep apnea (adult) (pediatric) Status: Acute Assessment and Plan: - continue home CPAP Plan Diet: Heart healthy GI Prophylaxis: Not currently indicated DVT Prophylaxis: Lovenox SQ IV fluids: None Lines/Tubes: Peripheral IV Code Status: Full code Subjective Date/time seen: 03/03/25 1135 Interval history: Pt resting comfortably in bed. Pt denies SOB, CP, or any other sx. Updated pt on the plan for continued IV abx and awaiting of blood culture results. Pt reports using the CPAP last night with ease. Continue to trend labs in the AM. ECHO performed today with some mild changes, pt to f/u and establish with [facility] outpt. Review of Systems Review of Systems: All systems reviewed & are unremarkable except as noted in HPI and below Objective Data Vital Signs Vital Signs: Vital Signs - 24 hr 03/02/25 11:38 03/02/25 11:45 03/02/25 11:55 Temperature 98.2 F Pulse Rate 63 64 Respiratory Rate 16 25 H Blood Pressure 146/65 H 148/69 H Pulse Oximetry 98 96 Oxygen Delivery 03/02/25 12:00 03/02/25 12:01 03/02/25 12:02 Temperature Pulse Rate 62 61 62 Respiratory Rate 15 17 17 Blood Pressure 129/68 Pulse Oximetry 98 98 98 Oxygen Delivery 03/02/25 12:05 03/02/25 12:21 03/02/25 12:30 Temperature Pulse Rate 60 58 L Respiratory Rate 16 15 Blood Pressure Pulse Oximetry 98 100 99 Oxygen Delivery Room Air 03/02/25 12:31 03/02/25 12:45 03/02/25 12:46 Temperature Pulse Rate 59 L 58 L 59 L Respiratory Rate 14 23 H 23 H Blood Pressure 126/60 134/63 Pulse Oximetry 99 97 97 Oxygen Delivery 03/02/25 13:00 03/02/25 13:01 03/02/25 13:15 Temperature Pulse Rate 60 60 57 L Respiratory Rate 21 H 23 H 18 Blood Pressure 134/61 Pulse Oximetry 96 96 96 Oxygen Delivery 03/02/25 13:16 03/02/25 13:30 03/02/25 13:31 Temperature Pulse Rate 60 67 69 Respiratory Rate 16 20 23 H Blood Pressure 125/62 143/69 H Pulse Oximetry 97 97 94 Oxygen Delivery 03/02/25 15:30 03/02/25 19:28 03/02/25 19:28 Temperature Pulse Rate 74 Respiratory Rate 20 Blood Pressure Pulse Oximetry 95 Oxygen Delivery Room Air Room Air 03/02/25 19:37 03/02/25 20:00 03/02/25 20:12 Temperature 97.7 F Pulse Rate 76 69 69 Respiratory Rate 20 20 20 Blood Pressure 143/53 H Pulse Oximetry 94 94 Oxygen Delivery Room Air 03/03/25 03:08 Temperature 97.8 F Pulse Rate 64 Respiratory Rate 20 Blood Pressure 138/55 L Pulse Oximetry 94 Oxygen Delivery Intake/Output Intake/Output: Intake & Output 02/28/25 03/01/25 03/02/25 03/03/25 23:59 23:59 23:59 23:59 Intake Total 240 340 Balance 240 340 Meds/Results Medications: Active Medications Generic Name Dose Route Start Last Admin Trade Name Freq PRN Reason Stop Dose Admin Allopurinol 300 mg 03/03/25 09:00 Allopurinol 300 Mg Tablet PO DAILY [facility] Amlodipine Besylate 10 mg 03/03/25 09:00 Amlodipine Besylate 10 Mg Tablet BY MOUTH DAILY [facility] Aspirin 325 mg 03/03/25 09:00 Aspirin 325 Mg Tablet PO DAILY [facility] Atorvastatin Calcium 40 mg 03/03/25 09:00 Atorvastatin 40 Mg Tablet PO DAILY [facility] Benzonatate 100 mg 03/02/25 14:52 Benzonatate 100 Mg Capsule PO TID PRN Cough Candesartan Cilexetil 32 mg 03/03/25 09:00 Candesartan Cilexetil 16 Mg Tablet PO QAM [facility] Carvedilol 25 mg 03/02/25 21:00 03/02/25 19:45 Carvedilol 25 Mg Tablet PO 25 mg Q12HR [facility] Administration Celecoxib 200 mg 03/02/25 17:00 03/02/25 17:03 Celecoxib 200 Mg Capsule PO 200 mg BID [facility] Administration Dextrose 12.5 gm 03/02/25 14:51 Dextrose 50% 25 Gm/50 Ml Syringe IV PUSH PRN PRN Hypoglycemia Protocol Enoxaparin Sodium 40 mg 03/03/25 09:00 Enoxaparin 40 Mg/0.4 Ml Syringe SUB-Q DAILY [facility] Fish Oil 1 gm 03/03/25 18:00 [place] 3 Polyunsat Fatty Acids 1 Gm Cap PO QPM [facility] Fish Oil 2 gm 03/03/25 09:00 [place] 3 Polyunsat Fatty Acids 1 Gm Cap PO DAILY [facility] Furosemide 40 mg 03/03/25 09:00 Furosemide Inj 40 Mg/4 Ml Vial IV PUSH DAILY [facility] Glimepiride 2 mg 03/03/25 09:00 Glimepiride 2 Mg Tablet PO QAM [facility] Glucagon 1 mg 03/02/25 14:51 Glucagon For Inj 1 Mg Vial IM PRN PRN Hypoglycemia Protocol Glucose 15 gm 03/02/25 14:51 Glucose Oral Gel 15 Gm Of Glucse In 37.5 Gm Tube PO PRN PRN Hypoglycemia Protocol Guaifenesin 600 mg 03/02/25 21:00 03/02/25 19:45 Guaifenesin 12 Hr 600 Mg Tabcr PO 600 mg Q12HR [facility] Administration Hydrochlorothiazide 25 mg 03/03/25 09:00 Hydrochlorothiazide 25 Mg Tablet PO DAILY [facility] Azithromycin 500 mg in 250 mls @ 250 mls/hr 03/03/25 09:00 Zithromax IVPB Q24H [facility] Dextrose 1,000 mls @ 100 mls/hr 03/02/25 14:51 Dextrose 5% 1,000 Ml IVPB PRN PRN Hypoglycemia Protocol Insulin Aspart 4 - 8 units 03/02/25 17:00 03/02/25 17:12 Insulin Aspart (*Bkc) 100 Units/Ml SUB-Q Not Given TIDWM [facility] Protocol Levothyroxine Sodium 100 mcg 03/03/25 06:30 03/03/25 05:41 Levothyroxine Sodium 100 Mcg Tablet PO 100 mcg DAILY@0630 [facility] Administration Lorazepam 1 mg 03/02/25 16:20 03/03/25 00:34 Lorazepam (*Crx) 1 Mg Tablet PO 1 mg BID PRN Administration anxiety Miscellaneous Information 0 each 03/02/25 00:01 Atorvastatin Clarify Dose External Med Rec Shows Pt Takes 80mg XX 04/01/25 00:00 CLARIFY [facility] Miscellaneous Information 0 each 03/02/25 00:01 Androgel Nonform Can Pt Bring From Home Or Hold While Here? XX 04/01/25 00:00 CLARIFY [facility] Miscellaneous Information 0 each 03/02/25 00:01 Vibegron Nonform Can Pt Bring From Home? XX 04/01/25 00:00 CLARIFY [facility] Multivitamins/Minerals 1 tab 03/03/25 12:00 Multivitamins /C Lutein (Centrum Silver) Tablet *Bkc PO DAILY@1200 [facility] Non-Formulary Medication 2 pump 03/03/25 09:00 Testosterone [Androgel] TOPICAL 04/02/25 08:59 DAILY [facility] Non-Formulary Medication 75 mg 03/03/25 09:00 Vibegron [Gemtesa] PO 04/02/25 08:59 DAILY [facility] Perflutren Lipid Microsphere 0 ml 03/02/25 14:20 Perflutren Lipid Microspheres 1.5 Ml Vial Diluted To 10 Ml Total Volume IV PUSH 03/05/25 14:20 ONCE PRN adequate visualization Protocol Psyllium Hydrophilic Mucilloid 1 packet 03/02/25 21:00 03/02/25 19:44 Psyllium Sugar Free Powder Packet PO 1 packet HS [facility] Administration Sitagliptin Phosphate 100 mg 03/03/25 09:00 Sitagliptin Phosphate 100 Mg Tablet PO QAM [facility] Vitamin D 2,000 units 03/03/25 09:00 Cholecalciferol 1,000 Units Tablet PO DAILY [facility] Radiology Results: ITS Impressions Chest X-Ray 03/02/25 12:28 IMPRESSION: 1. Small bilateral pleural effusions. 2. Opacities in the bilateral lower lung zones most likely combination of atelectasis and mild pulmonary edema although pneumonia not excludable. Labs Labs: Laboratory Results - last 24 hr 03/02/25 03/02/25 03/03/25 11:56 16:43 04:56 WBC 7.0 6.2 RBC 4.43 L 3.93 L Hgb 13.0 L 11.6 L Hct 41.3 L 36.2 L MCV 93.2 92.1 MCH 29.3 29.5 MCHC 31.5 L 32.0 RDW 15.9 H 15.9 H Plt Count 162 142 L MPV 9.5 9.7 Immature Gran % (Auto) 0.6 H 0.2 Neut % (Auto) 67.9 65.3 Lymph % (Auto) 16.9 L 18.8 [place] % (Auto) 11.0 H 11.7 H Eos % (Auto) 2.9 3.4 Baso % (Auto) 0.7 0.6 Lymph # (Auto) 1.18 1.16 [place] # (Auto) 0.8 H 0.7 H Eos # (Auto) 0.2 0.2 Baso # (Auto) 0.1 0.0 Abs Immat Gran (auto) 0.04 H 0.01 Absolute Neuts (auto) 4.7 4.0 Absolute Nucleated RBC 0.000 0.000 Nucleated RBC % 0.0 0.0 PT 14.3 INR 1.1 APTT 30.2 Sodium 140 137 Potassium 4.4 3.5 Chloride 105 104 Carbon Dioxide 25 25 Anion Gap 10 8 BUN 18 D 16 Creatinine 0.82 0.75 Estim Creat Clear Calc 82 88 Estimated GFR > 60 > 60 Glucose 143 H 123 H POC Capillary Glucose 116 H Hemoglobin A1c 7.3 H Calcium 9.8 9.2 Total Bilirubin 1.0 AST 28 ALT 25 Alkaline Phosphatase 106 Troponin I 0.022 NT-Pro-B Natriuret Pep 422 H Total Protein 8.0 Albumin 4.4 Quality VTE Prophylaxis VTE prophylaxis: pharmacologic ordered
[2025-03-03 08:09] LABS: Glucose Point of Care 143 mg/dl (65-105)
[2025-03-03] MEDS: ASPIRIN 325 MG TABLET PO (09:12)
[2025-03-03] MEDS: OMEGA 3 POLYUNSAT FATTY ACIDS 1 GM CAP 2 GM PO (09:12)
[2025-03-03] MEDS: CHOLECALCIFEROL 1,000 UNITS TABLET 2000 UNITS PO ×2 (09:12→09:15)
[2025-03-03] MEDS: CELECOXIB 200 MG CAPSULE PO ×2 (09:13→16:41)
[2025-03-03] MEDS: CANDESARTAN CILEXETIL 16 MG TABLET 32 MG PO ×2 (09:13→09:16)
[2025-03-03] MEDS: carvediloL 25 MG TABLET PO ×2 (09:16→20:49)
[2025-03-03] MEDS: guaiFENesin 12 HR 600 MG TABCR PO ×2 (09:16→20:50)
[2025-03-03] MEDS: allopurinoL 300 MG TABLET PO (09:16)
[2025-03-03] MEDS: amLODIPine BESYLATE 10 MG TABLET BY MOUTH (09:16)
[2025-03-03] MEDS: GLIMEPIRIDE 2 MG TABLET PO (09:16)
[2025-03-03] MEDS: AZITHROMYCIN 500 MG/NS 250 ML 500 MG/250 ML BAG 250 MG IVPB (09:17)
[2025-03-03] MEDS: ENOXAPARIN 40 MG/0.4 ML SYRINGE SUB-Q (09:17)
[2025-03-03] MEDS: FUROSEMIDE INJ 40 MG/4 ML VIAL IV PUSH (09:17)
[2025-03-03] MEDS: hydroCHLOROthiazide 25 MG TABLET PO (09:17)
[2025-03-03] MEDS: SITagliptin PHOSPHATE 100 MG TABLET PO (09:17)
[2025-03-03] MEDS: MULTIVITAMINS /C LUTEIN (CENTRUM SILVER) TABLET *BKC 1 TAB PO (11:13)
[2025-03-03] MEDS: ATORVASTATIN 40 MG TABLET PO (11:13)
[2025-03-03 11:57] LABS: Glucose Point of Care 133 mg/dl (65-105)
--- OUTSIDE RECORDS SUMMARY | 2025-03-03 12:50 | XMS_ITS | Referral Summary ---
Author Organization [facility] Address [address] [place] [address] Care Team Providers Care Assistant Guest Services Manager Name Role Phone Nomi Moore MD PhD Unavailable [phone] Roberto Saleem MD Primary Care Provider [phone] Spencer Fulton MD Unavailable [phone] Allergies Active Allergy Reactions Criticality Noted Date Comments Lisinopril Cough Low 10/21/2021 Morphine Itching Medium 10/21/2021 Oxycodone Mental status changes,Delusions Medium 04/2024 Medications hydroCHLOROthiazid e (HYDRODIURIL) 25 mg tablet Take 1 tablet (25 mg total) by mouth every morning Active levothyroxine (SYNTHROID) 100 mcg tablet Take 1 tablet (100 mcg total) by mouth early childhood coordinator before breakfast Active carvedilol (COREG) 25 mg [...] tablet by mouth every morning Active omega 1-ply-wtf-fish oil 1,000 mg (120 mg-180 mg) capsule [...] 09/27/2018 Assessment & Plan (10/20/2022 1:03 PM CONSTRUCTION COST ESTIMATOR): Patient seen today for 1 year routine [...] artery disease 11/01/2004 Overview (10/31/2019): stent placed [place] by Dr. Tompkins Immunizations Immunization Administration Dates [...] on file Legal Sex Male 12:37 PM CONSTRUCTION COST ESTIMATOR Gender Identity Male 02/02/2022 11:05 AM CDT Sexual Orientation Straight 02/02/2022 11 :05 AM CDT Last Filed Vital Signs Vital Sign Reading Time Taken Comments Blood Pressure 137/65 10/07/2024 8:35 AM CONSTRUCTION COST ESTIMATOR Pulse 84 10/07/2024 8:35 AM CONSTRUCTION COST ESTIMATOR Temperature 36.6 C (97.9 F) 10/07/2024 8:35 AM CONSTRUCTION COST ESTIMATOR Respiratory Rate 18 10/07/2024 8:35 AM CONSTRUCTION COST ESTIMATOR Oxygen Saturation 98% 10/07/2024 8:35 AM CONSTRUCTION COST ESTIMATOR Inhaled Oxygen Concentration - - Weight 124.7 kg (274 lb 14.6 oz) 10/06/2024 8:55 AM CONSTRUCTION COST ESTIMATOR Height 180.3 cm (5' 10.98 ) 10/06/2024 8:55 AM C Body Mass Index 38.36 10/06/2024 8:55 AM CONSTRUCTION COST ESTIMATOR Plan of Treatment Not on file Medical Devices Implanted Type Area Casing Crew Device Identifier Shelf Expiration Date Model / Serial / Lot Total Hip Bilatera l: Hip [employer] Triathlon Tritanium Knee 7 Baseplate Tibial 5536-B-700 - [id number] Implanted:Qty: 1 on 01/20/2024 by Spencer Fulton MD at [facility] Right: Knee [employer] [id number] 09/27/2028 5536-B-70 0 / / [id number] [employer] Triathlon Cruciate Retain Bead Knee Right 7 Component Femoral Pa 5517-F-702 - [id number] Implanted:Qty: 1 on 01/20/2024 by Spencer Fulton MD at [facility] Right: Knee [employer] [id number] 11/04/2027 5517-F-70 2 / / [id number] [employer] Tritanium 38mm 11mm Asymmetric Knee Component Patellar Metal 5552-L-381 - [id number] Implanted:Qty: 1 on 01/20/2024 by Spencer Fulton MD at [facility] Right: Knee [employer] [id number] 12/11/2025 5552-L-38 1 / / [id number] [employer] Insert Tibial Triathlon 7 H9mm Knee Bearing Condylar Stabilize Sterile 6949-Q-623-E - [id number] Implanted:Qty: 1 on 01/20/2024 by Spencer Fulton MD at [facility] Right: Knee [employer] [id number] 08/14/2028 5531-G-70 9-E / / [id number] [employer] Tritanium 38mm 11mm Asymmetric Knee Component Patellar Metal 5552-L-381 - [id number] Implanted:Qty: 1 on 10/06/2024 by Spencer Fulton MD at [facility] Left: Knee [employer] [id number] 07/16/2029 5552-L-38 1 / / [id number] [employer] Triathlon Cruciate Retain Bead Knee Left 8 Component Femoral Pa 5517-F-801 - [id number] Implanted:Qty: 1 on 10/06/2024 by Spencer Fulton MD at [facility] Left: Knee [employer] [id number] 07/15/2027 5517-F-80 1 / / [id number] [employer] Insert Tibial Triathlon 7 H10mm Knee Bearing Condylar Stabilize Sterile 7356-X-412-E - [id number] Implanted:Qty: 1 on 10/06/2024 by Spencer Fulton MD at [facility] Left: Knee [employer] [id number] 05/18/2029 5531-G-71 0-E / / [id number] [employer] Triathlon Tritanium Knee 7 Baseplate Tibial 5536-B-700 - [id number] Implanted:Qty: 1 on 10/06/2024 by Spencer Fulton MD at [facility] Left: Knee [employer] [id number] 07/27/2029 5536-B-70 0 / / [id number] Procedures Procedure Name Priority Date/Time Associated Diagnosis Comments EGFR Routine 08/24/2024 11:09 AM CDT Preop testing HEMOGLOBIN A1C Routine 08/24/2024 11:09 AM CDT Preop testing LIPID PANEL Routine 11/01/2019 4:44 AM CONSTRUCTION COST ESTIMATOR from Last 3 Months or Most Recently [...] RUBIO LAB BLOOD ORDERABLES Fin al Result [facility] [address] Department [place] [address] * (ABNORMAL) Hemoglobin A1c (08/24/2024 11:09 AM CDT) Hgb A1C 7.0(H) 4.0 - 5.6 % Estimated Average Glucose 154 mg/dL [facility] Comment: The ADA recommends reporting an estimated Average Glucose (eAG) with all Hemoglobin A1c results using the equation derived from a study of 507 normal and diabetic adults. Minority populations were underrepresented and children were not included. (Diabetes Care 31:4543-8372, 2008). The eAG is not equivalent to a fasting glucose. Blood 08/24/2024 11:0 9 AM CDT 08/24/2024 11:09 AM CDT us Tabby RUBIO LAB BLOOD ORDERABLES Fin al Result [facility] [address] Department [place] [address] * (ABNORMAL) Lipid panel (11/01/2019 4:44 AM CONSTRUCTION COST ESTIMATOR) Cholesterol 127 30 - 199 mg/dL [facility] Comment: Interpretive Data Ages < [...] on 2018. Triglycerides 250(H) <=149 mg/dL [facility] Comment: Interpretive Data Ages < [...] on 2018. HDL 33(L) >=40 mg/dL [facility] Comment: Interpretive Data Ages < [...] 2018. LDL, calculated 44 <=129 mg/dL [facility] Comment: Interpretive Data Ages < [...] on 2018. Non-HDL Cholesterol 94 mg/dL [facility] Comment: Interpretive Data Ages < [...] revised on 2018. Chol/HDL ratio [address] [facility] Blood specimen (specimen) 11/01/2019 4:44 AM CONSTRUCTION COST ESTIMATOR 11/01/2019 5:17 AM CONSTRUCTION COST ESTIMATOR Kenzie Amaya MD LAB BLOOD ORDERABLES Final Result [facility] [address] Department [place] [address] from Last 3 Months or Most Recently Relevant to Health Maintenance Insurance [facility] MEDICARE ADVANTAGE [facility] Address: [address] [address] [place] [address] [facility] MEDICARE 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 ADVANCE DIRECTIVE 01/25/2024 2:02 AM POWER OF GOLF CLUB MANAGER-MEDICAL * Full Code (Latest Code Status on File) Date Activated Date Inactivated Comments 10/06/2024 6:40 PM 10/07/2024 3:38 PM * Full Code Date Activated Date Inactivated Comments 01/20/2024 12:53 PM 01/21/2024 4:25 PM * Full Code Date Activated Date Inactivated Comments 10/31/2019 7:01 PM 11/01/2019 6:11 PM Care Teams Assistant Guest Services Manager Relationship Specialty Start Date End Date Roberto Saleem MD [address] [place] [address] PCP - General 10/31/19 Nomi Moore MD PhD [address] [facility] [address] [place] [address] Consulting Physician Neurology 11/01/19 Spencer Fulton MD [address] [address] Consulting Physician Orthopedic Surgery 10/26/23
--- OUTSIDE RECORDS SUMMARY | 2025-03-03 12:50 | XMS_ITS | Clinical Summary ---
Author Organization [facility] Address [address] [place] [address] Care Team Providers Care Pvc Monitor Name Role Phone Roberto Saleem MD Primary Care Provider [phone] Allergies Active Allergy Reactions Criticality Noted Date [...] Gel AndroGel Active Lancets (ONETOUCH DELICA PLUS [id number]) [facility] OneTouch Delica Plus Lancet 30 gauge Active Blood Glucose Monitoring Suppl (ONETOUCH PING METER REMOTE) Supplies [facility] OneAktivito Verio Flex Meter Active betamethasone dipropionate 0.05 [...] Vaccines Completed 08/17/2019, 07/02, 05/03/2019 Pneumococcal Vaccine: 50+ Years Completed 07/02/2023, 08/05/2018 Meningococcal B Vaccine Aged Out No l onger eligible based on patient's age to complete this topic Meningococcal Vaccine Aged Out No yadi charles eligible based on patient's age to complete this topic RSV Immunizations Under 20 Months Aged Out No longer eligible based on patient's age to complete this topic Insurance [employer] Care Teams Pvc Monitor Relationship Specialty Start Date End Date Roberto Saleem MD [address] - [facility] [address] [place] [address] PCP - General INTERNAL MEDICINE 02/17/22
--- OUTSIDE RECORDS SUMMARY | 2025-03-03 12:50 | XMS_ITS | Clinical Summary ---
Author Organization [facility] Address [address] [place] [address] Care Team Providers Care Experimental Assembler Name Role Phone Nomi Moore MD PhD Unavailable [phone] Roberto Saleem MD Primary Care Provider [phone] Spencer Fulton MD Unavailable [phone] Allergies Active Allergy Reactions Criticality Noted Date Comments Lisinopril Cough Low 10/21/2021 Morphine Itching Medium 10/21/2021 Oxycodone Mental status changes,Delusions Medium 04/2024 Medications hydroCHLOROthiazid e (HYDRODIURIL) 25 mg tablet Take 1 tablet (25 mg total) by mouth every morning Active levothyroxine (SYNTHROID) 100 mcg tablet Take 1 tablet (100 mcg total) by mouth automation design engineer before breakfast Active carvedilol (COREG) 25 mg [...] tablet by mouth every morning Active omega 5-avz-ulk-fish oil 1,000 mg (120 mg-180 mg) capsule [...] 09/27/2018 Assessment & Plan (10/20/2022 1:03 PM SURVEY WORKER): Patient seen today for 1 year routine [...] artery disease 11/01/2004 Overview (10/31/2019): stent placed [place] by Dr. Tompkins Immunizations Immunization Administration Dates [...] Coronary artery disease [address] [place] by Dr. Tompkins Cataract Hyperlipidemia Gout Sleep [...] on file Legal Sex Male 12:37 PM SURVEY WORKER Gender Identity Male 02/02/2022 11:05 AM CDT Sexual Orientation Straight 02/02/2022 11 :05 AM CDT Obstetrics History Last Filed Vital Signs Vital Sign Reading Time Taken Comments Blood Pressure 137/65 10/07/2024 8:35 AM SURVEY WORKER Pulse 84 10/07/2024 8:35 AM SURVEY WORKER Temperature 36.6 C (97.9 F) 10/07/2024 8:35 AM SURVEY WORKER Respiratory Rate 18 10/07/2024 8:35 AM SURVEY WORKER Oxygen Saturation 98% 10/07/2024 8:35 AM SURVEY WORKER Inhaled Oxygen Concentration - - Weight 124.7 kg (274 lb 14.6 oz) 10/06/2024 8:55 AM SURVEY WORKER Height 180.3 cm (5' 10.98 ) 10/06/2024 8:[address] Body Mass Index 38.36 10/06/2024 8:55 AM SURVEY WORKER Plan of Treatment Health Maintenance Due Date [...] 08/05/2018, 10/01/2009 Medical Devices Implanted Type Area Insole Buffer Device Identifier Shelf Expiration Date Model / Serial / Lot Total Hip Bilatera l: Hip [employer] Triathlon Tritanium Knee 7 Baseplate Tibial 5536-B-700 - [id number] Implanted:Qty: 1 on 01/20/2024 by Spencer Fulton MD at [facility] Right: Knee [employer] [id number] 09/27/2028 5536-B-70 0 / / [id number] [employer] Triathlon Cruciate Retain Bead Knee Right 7 Component Femoral Pa 5517-F-702 - [id number] Implanted:Qty: 1 on 01/20/2024 by Spencer Fulton MD at [facility] Right: Knee [employer] [id number] 11/04/2027 5517-F-70 2 / / [id number] [employer] Tritanium 38mm 11mm Asymmetric Knee Component Patellar Metal 5552-L-381 - [id number] Implanted:Qty: 1 on 01/20/2024 by Spencer Fulton MD at [facility] Right: Knee [employer] [id number] 12/11/2025 5552-L-38 1 / / [id number] [employer] Insert Tibial Triathlon 7 H9mm Knee Bearing Condylar Stabilize Sterile 2574-S-368-E - [id number] Implanted:Qty: 1 on 01/20/2024 by Spencer Fulton MD at [facility] Right: Knee [employer] [id number] 08/14/2028 5531-G-70 9-E / / [id number] [employer] Tritanium 38mm 11mm Asymmetric Knee Component Patellar Metal 5552-L-381 - [id number] Implanted:Qty: 1 on 10/06/2024 by Spencer Fulton MD at [facility] Left: Knee [employer] [id number] 07/16/2029 5552-L-38 1 / / [id number] [employer] Triathlon Cruciate Retain Bead Knee Left 8 Component Femoral Pa 5517-F-801 - [id number] Implanted:Qty: 1 on 10/06/2024 by Spencer Fulton MD at [facility] Left: Knee [employer] [id number] 07/15/2027 5517-F-80 1 / / [id number] [employer] Insert Tibial Triathlon 7 H10mm Knee Bearing Condylar Stabilize Sterile 7421-O-028-E - [id number] Implanted:Qty: 1 on 10/06/2024 by Spencer Fulton MD at [facility] Left: Knee [employer] [id number] 05/18/2029 5531-G-71 0-E / / [id number] [employer] Triathlon Tritanium Knee 7 Baseplate Tibial 5536-B-700 - [id number] Implanted:Qty: 1 on 10/06/2024 by Spencer Fulton MD at [facility] Left: Knee [employer] [id number] 07/27/2029 5536-B-70 0 / / [id number] Procedures Procedure Name Priority Date/Time Associated Diagnosis Comments EGFR Routine 08/24/2024 11:09 AM CDT Preop testing HEMOGLOBIN A1C Routine 08/24/2024 11:09 AM CDT Preop testing LIPID PANEL Routine 11/01/2019 4:44 AM SURVEY WORKER from Last 3 Months or Most Recently [...] ORDERABLES Fin al Result Performing Organization Address City/[facility]/ZIP Co de Phone Number [facility] [address] Department of Laboratories [place], [place] [id number] * (ABNORMAL) Hemoglobin A1c (08/24/2024 11:09 AM CDT) Hgb A1C 7.0(H) 4.0 - 5.6 % Estimated Average Glucose 154 mg/dL [facility] Comment: The ADA recommends reporting an estimated Average Glucose (eAG) with all Hemoglobin A1c results using the equation derived from a study of 507 normal and diabetic adults. Minority populations were underrepresented and children were not included. (Diabetes Care 31:5455-1788, 2008). The eAG is not equivalent to a fasting glucose. Blood 08/24/2024 11:0 9 AM CDT 08/24/2024 11:09 AM CDT Tabby RUBIO LAB BLOOD ORDERABLES Fin al Result Performing Organization Address City/[facility]/ZIP Co de Phone Number [facility] [address] Department [place] [address] * (ABNORMAL) Lipid panel (11/01/2019 4:44 AM SURVEY WORKER) Cholesterol 127 30 - 199 mg/dL [facility] Comment: Interpretive Data Ages < or = [...] revised on 2018. Triglycerides 250(H) <=149 mg/dL [facility] Comment: Interpretive Data Ages < or = [...] revised on 2018. HDL 33(L) >=40 mg/dL [facility] Comment: Interpretive Data Ages < or = [...] on 2018. LDL, calculated 44 <=129 mg/dL [facility] Comment: Interpretive Data Ages < or = [...] revised on 2018. Non-HDL Cholesterol 94 mg/dL [facility] Comment: Interpretive Data Ages < or = [...] last revised on 2018. Chol/HDL ratio 4 [facility] Blood specimen (specimen) 11/01/2019 4:44 AM SURVEY WORKER 11/01/2019 5:17 AM SURVEY WORKER us Kenzie Amaya MD LAB BLOOD ORDERABLES Final Result [facility] [address] Department [place] [address] from Last 3 Months or Most Recently Relevant to Health Maintenance Insurance [facility] MEDICARE ADVANTAGE [facility] MEDICARE [facility] MEDICARE UHC MEDICARE ADVANTAGE [facility] MEDICARE Advance Directives For more information, please contact: [phone] Documents on File Type Date Recorded Patient Vertical Punch Operator Expl anation ADVANCE DIRECTIVE 01/25/2024 2:02 AM POWER OF DIRECTOR BIOLOGICS-MEDICAL * Full Code (Latest Code Status on File) Date Activated Date Inactivated Comments 10/06/2024 6:40 PM 10/07/2024 3:38 PM * Full Code Date Activated Date Inactivated Comments 01/20/2024 12:53 PM 01/21/2024 4:25 PM * Full Code Date Activated Date Inactivated Comments 10/31/2019 7:01 PM 11/01/2019 6:11 PM Care Teams Experimental Assembler Relationship Specialty Start Date End Date Roberto Saleem MD [address] [place] [address] PCP - General 10/31/19 Nomi Moore MD PhD [address] [facility] [address] [place] [address] Consulting Physician Neurology 11/01/19 Spencer Fulton MD [address] [address] Consulting Physician Orthopedic Surgery 10/26/23
--- OUTSIDE RECORDS SUMMARY | 2025-03-03 12:51 | XMS_ITS | Data Portability ---
Author Organization [place] - [facility], Main Office Address [address] [place] [address] Assessment Encounter Date Assessment Date Assessment LastModified [...] DO Not Attach Compendium, Do Not Delete/merge, [id number] 3 14:13:11 injection/a spiration joint/bursa (PROC) - in office procedure, administere d by provider 2022 023 [email or web address] In-Office Order, Internal Use Only DO Not Attach Compendium DO Not Attach Compendium, Do Not Delete/merge, [id number] 3 09:40:43 injection/a spiration joint/bursa (PROC) - in office procedure, administere d by provider 2022 023 [email or web address] In-Office Order, Internal Use Only DO Not Attach Compendium DO Not Attach Compendium, Do Not Delete/merge, [id number] 3 08:57:06 injection/a spiration joint/bursa (PROC) - in office procedure, administere d by provider 2022 023 [email or web address] In-Office Order, Internal Use Only DO Not Attach Compendium DO Not Attach Compendium, Do Not Delete/merge, [id number] 3 09:27:11 Surgeries None recorded. Imaging XR, knee 2022 023 [email or web address] [facility] [place], [address], [place], [address], 3 10:00:08 XR, hand, 3 or more view 2022 023 [email or web address] [facility] [place], [address], [place], [address], 3 09:55:58 Medication Orders bupivacaine HCl 0.5 % (5 mg/mL) injection solution 2022 023 [facility] #99737, [address] [place] [address], [id number], 3 15:17:55 Kenalog 10 mg/mL suspension for injection 2022 023 [place] [address] [facility] #54891, [address] [place] [address], [id number], 3 15:17:55 Kenalog 10 mg/mL suspension for injection 2022 023 [facility] #74219, [address] [place] [address], [id number], 3 09:55:28 ropivacaine (PF) 5 mg/mL (0.5 %) injection solution 2022 023 [facility], [address] [place] [address], [id number], 3 09:55:28 Kenalog 10 mg/mL suspension for injection 2022 023 [facility] #65546, [address] [place] [address], [id number], 3 09:07:20 ropivacaine (PF) 5 mg/mL (0.5 %) injection solution 2022 023 [facility] #30259, [address] [facility], [place], [id number], 3 09:07:20 Kenalog 10 mg/mL suspension for injection 2022 023 no6 [facility] #50516, [address] [facility] [address] [facility], [place], [place], [id number], 3 09:53:52 ropivacaine (PF) 5 mg/mL (0.5 %) injection solution [address] [facility] #34721, [address] [facility] [address] [place] [address], [id number], 3 09:53:52 Patient TargetsNo targets recorded. Patient InstructionsNo instructions recorded. Reason for Referral None Reported. Results Created Date Observation Date Name Description Value Unit Range Abnormal Flag Note LastModifiedBy Organization Detail LastModifiedTime 11/30/19 23 XR, foot, 3 or more view No observ ation record ed. [id number] [facility] [place] [address], [place], [address], 12/30/2022 13:53:28 02/12/20 23 XR, hand, 3 or more view No observ ation record ed. [facility] [place] [address], [place], [address], 02/11/2023 09:52:08 07/08/20 23 XR, knee No observ ation record ed. [facility] [place] [address], [place], [address], 07/08/2023 09:55:03 Result Notes None recorded. Problems Name Problem SNOMED Code Status Onset Date Resolution Date Notes Provider Name and Address Organization Details Recorded Time Trigger finger of right hand 2219438267690 9101 Active 2021 Not Available [facility] 3 13:51:57 Radiothera py follow-up 346186890 Active Not Available [facility] 3 13:51:57 Localized, primary osteoarthr itis of the ankle and/or foot 659752653 Active 2022 Not Available [facility] 3 13:51:58 Localized, primary osteoarthr itis of the ankle and/or foot 690971664 Active 2022 Not Available [facility] 3 13:51:58 Osteoarthr itis of hip 876828815 Active Not Available [facility] 3 13:51:58 Low back pain 937758261 Active Not Available [facility] 3 13:51:58 Current tear of medial cartilage AND/OR meniscus of knee Active Not Available [facility] 3 13:51:58 Knee pain Active Not Available [facility] 3 13:51:58 Knee pain Active 2019 Not Available [facility] 3 13:51:58 Pain of left hand 2828287110823 03 Active 2021 Not Available [facility] 3 13:51:58 Osteoarthr itis 487020050 Active Not Available [facility] 3 13:51:58 Pain of bilateral knee joints 1215178862907 04 Active 2021 Not Available [facility] 3 13:51:58 Derangemen t of knee 44427144 Active Not Available [facility] 3 13:51:58 Pain in left foot 4592394074720 07 Active 2022 VIRGIE Rincon null, [place] - [facility] [employer] [facility] 3 09:24:30 Acquired trigger finger of left ring finger 2538169659414 09 Active 2022 JOANNE Holbrook [address] [place] [address] [address], [address], [place], [address] , [place] - [employer] 09:51:01 Problem Notes None recorded. Procedures Surgical History Date Name Laterality Status Provider Name and Address Organization Details Recorded Time hip joint reconstruction completed Not Available [facility] 12/30/2022 13:51:43 Knee completed VIRGIE Rincon [place] - [facility] [employer] 02/11/2023 09:23:41 Imaging Results Imaging Date Name Status LastModified by Organiz ation Details LastModified Time 11/30/2022 XR, foot, 3 or more view completed [id number] [facility] [place] [address] [facility] [address], [place], [address], 12/30/2022 13:53:28 02/11/2023 XR, hand, 3 or more view completed [facility] [place] [address] [facility] [address], [place], [address], 02/11/2023 09:52:08 07/08/2023 XR, knee completed [facility] [place] [address] [facility] [address], [place], [address], 07/08/2023 09:55:03 Procedure Notes None recorded. Medical Equipment None Reported. Allergies Allergen ID Allergen Name Allergen Category Reaction Reaction Severity Criticality Documentation Date Start Date Code Code System Note Provider Name and Address Organization Details Recorded Time 61202 morphine medicatio n itching Not available Not available 12/30/2022 7052 RxNorm Not Available [facility] 13:53:27 21318 Product containin g angiotens in-conver ting enzyme inhibitor (product) medicatio n cough Not available Not available 12/30/2022 45896 009 SNOMED Not Available [facility] 13:53:27 Medications Name Sig Start Date Stop [...] mg by injectio n route. 2022 active [facility]: 0003-049 4-20 Not Available Not Available Not Available amlodipin [...] the office by the doctor 03/25 completed [facility]: 68915025 001 Not Available Not Available Not Available [...] administ ered by the provider 11/25 completed [facility]: 0409-427 6 Not Available Not Available Not [...] mg by injectio n route. 2022 active [facility] 39394-80 4- Not Available Not Available Not Available [...] Available Not Available No t Available Fluvirin 2307-5140 45 mcg (15 mcg x 3)/0.5 mL [...] Available Not Available Not Available Fluzone High-Dose 8557-6732 (PF) 180 mcg/0.5 mL intramusc ular syringe [...] Updated DateTime 11/30/2022 39.7 kg/m2 180.34 cm 991584.83 g Not Available [employer] 12/30/2022 13:51:51 Date Recorded Body height Body mass index (BMI) Body weight Provider Name and Address Organization Details Last Updated DateTime 02/11/2023 180.34 cm 25.1 kg/m2 77878.63 g Jaimie Eatondeisy [facility] [employer] [facility] [employer] 02/11/2023 09:20:14 Date Recorded Body height Body mass index (BMI) Body weight Provider Name and Address Organization Details Last Updated DateTime 03/04/2023 180.34 cm 39.7 kg/m2 869371.83 g Jeffreyesmemaria [facility] [employer] 03/04/2023 08:55:37 Date Recorded Body height Body mass index (BMI) Body weight Provider Name and Address Organization Details Last Updated DateTime 07/08/2023 180.34 cm 39.7 kg/m2 719616.83 g Samantha Guillermobranden [facility] [facility] [employer] 07/08/2023 09:39:05 Date Recorded Body height Body mass index (BMI) Body weight Provider Name and Address Organization Details Last Updated DateTime 10/14/2023 180.34 cm 39.1 kg/m2 380667.86 g [facility] [employer] 10/14/2023 14:08:11 Social History Question Answer Notes LastModified by Organizat ion Details LastModified Time Tobacco Smoking Status Former Smoker Jadyn mitchell, [place] [employer] [employer] 03/04/2023 08:54:32 What Is Your Level Of Alcohol Consumption? Occasional [email or web address] Information not available 02/11/2023 Sex: Unknown Functional Status None recorded. Mental Status None recorded. Family History Relationship Description Onset Age of this Age Resolved Age Notes LastModified by Organization Details LastModified Time Father Family history of malignant neoplasm [email or web address] Not available 10/14 14:06:34 Father History of hypertension [email or web address] Not available 14:06:34 Father Kidney disease [email or web address] Not available 2022 09:23:18 Unspecified Relation Heart disease [email or web address] [id number] Not available 12/30/2022 13:51:44 Unspecified Relation Diabetes mellitus [email or web address] [id number] Not available 12/30/2022 13:51:44 Mother History of hypertension ayaan Not available 14:06:34 Medical History Condition Response BLINDNESS N KIDNEY STONES N MRSA N CARPAL TUNNEL SYNDROME N LUNG DISEASE/DISORDER N HISTORY OF DRUG ABUSE N RADIATION / CHEMOTHERAPY N COPD N SPORTS INJURY N ANKLE PAIN N BLOOD DISEASES N SCHIZOPHRENIA N SHINGLES N SHOULDER PAIN N BOWEL PROBLEMS N DEPRESSION (INCLUDING POST ) N STROKE/TIA N ULCERS N KNEE PAIN N BENIGN PROSTATIC HYPERPLASIA N OBESITY N GERD/NAUSEA N ANEURYSM N URINARY/BLADDER/KIDNEY PROBLEMS Y CORONARY ARTERY DISEASE (CAD) Y ADDICTION CONCERNS N USE OF BLOOD THINNERS Y SKIN PROBLEMS Y EMPHYSEMA N MUSCLE,JOINT OR BONE PROBLEMS N DVT N STOMACH ULCERS N BLOOD CLOTS N USE OF NSAIDS N CONCUSSION OR SPINAL TRAUMA N NEUROPATHY N AIDS/HIV N FRACTURES N HYPERTENSION N ELBOW PAIN N TOURETTE'S N Metal allergy N ANXIETY DISORDER N BLOOD TRANSFUSION N ANEMIA/BLOOD DISORDER N BIPOLAR DISORDER N BRONCHITIS N OSTEOARTHRITIS N TUBERCULOSIS N FOOT PROBLEM N HEART VALVE DISORDERS N ALLERGIES/HAYFEVER N SOFT TISSUE INJURY N INFECTIOUS DISEASE N HEART ARRHYTHMIA N INSOMNIA N HIGH CHOLESTEROL / HYPERLIPIDEMIA N RHEUMATOID ARTHRITIS N EDEMA N CHRONIC PAIN SYNDROME N CAROTID BLOCKAGE N BACK / NECK PROBLEMS N HAVE YOU BEEN HOSPITALIZED OR SEEN IN THE MEDICAL CENTER IN THE PAST YEAR ? N BURSITIS N HERNIATED DISC N DIALYSIS N FIBROMYALGIA N OSTEOPOROSIS N ARTHRITIS Y NO SIGNIFICANT PAST MEDICAL HISTORY N PERIPHERAL NEUROPATHY N DIABETES, TYPE Y HEARTBURN / REFLUX N HEPATITIS / LIVER DISEASE N GOUT Y ALZHEIMER'S DISEASE N SLEEP DISORDER N HERPES N HEADACHES/MIGRAINES N SEIZURES/EPILEPSY N VASCULAR DISEASE N Blood Disorder N HIP PAIN N DIZZINESS N HEAD TRAUMA OR INJURY N HEART DISEASE/HEART PROBLEMS N MULTIPLE SCLEROSIS N CANCER: SPECIFY N CARDIAC ARRHYTHMIA N ANESTHESIA COMPLICATIONS N ATRIAL FIBRILLATION N AUTOIMMUNE DISEASE N Past Encounters Encounter ID Performer Location Encounter Start Date Encounter Closed Date Diagnosis/Indication Diagnosis SNOMED-CT Code Diagnosis ICD10 Code Diagnosis Note [id number] JOANNE Holbrook [facility] [place] [address] [place] [id number] 03/25/2021 00:00:00 03/25/2021 16:09:26 [id number] Chadwick Ku MD [facility] [place] [address] [place], [place] [address] 09/08/2021 00:00:00 09/08/2021 10:17:23 [id number] Chadwick Ku MD [facility] [place] [address] [place], [place] [address] 11/25/2021 00:00:00 11/25/2021 16:06:41 [id number] Chadwick Ku MD [facility] [place] [address] [place] [address] 01/07/2022 00:00:00 01/07/2022 14:47:48 [id number] Chadwick Ku MD [facility] [place] [address] [place] [address] 04/28/2022 00:00:00 04/28/2022 17:04:01 [id number] Chadwick Ku MD [facility] [place] [address] [place] [address] 08/11/2022 00:00:00 08/11/2022 15:35:35 [id number] Chadwick Ku MD [facility] [place] [address] [place] [address] 11/30/2022 00:00:00 11/30/2022 09:53:23 [id number] Chadwick Ku MD [facility] [place] [address] [place] [place] [address] 02/11/2023 09:08:59 02/11/2023 09:55:58 Osteoarthritis 520063615 M17.0 [id number]|2025-03-03 12:51:00|2025-03-03 12:51:00|XMS_ITS|GERONIMOG JUSTO|External Medical Summaries|[id number]|" Clinical Summary Created on: March 03, 2025 Reynold Reyez : 1940 Sex: Male Author Organization [facility] [email or web address] Address [address] [place] [address] Care Team Providers Care Sculpture Conservator Name Role Phone Roberto Saleem MD Primary Care Provider [phone] Source Comments [facility] Affiliates and Associated Physician Practices is amultiple site organization consisting of ambulatory clinics and hospital sitesin [place], [place], [place] and [place]. This disclosure is being madepursuant to the Care Everywhere program and may not contain all information available regarding this patient. Last updated 18.[facility] [employer] Social History Tobacco Use Types Packs/Day Years Used Date Smoking Tobacco: Never Assessed Sex and Gender Information Value Date Recorded Sex Assigned at Not on file Legal Sex Male 6:16 AM NETSUITE CONSULTANT Gender Identity Not on file Sexual Orientation Not on file Last Filed Vital Signs Vital Sign Reading Time Taken Comments Blood Pressure 152/80 11/09/2013 9:56 AM NETSUITE CONSULTANT Pulse 61 11/09/2013 9:56 AM NETSUITE CONSULTANT Temperature - - Respiratory Rate 18 11/09/2013 9:56 AM NETSUITE CONSULTANT Oxygen Saturation - - Inhaled Oxygen Concentration - - Weight 142.9 kg (315 lb) 11/09/2013 9:56 AM NETSUITE CONSULTANT Height - - Body Mass Index - - Plan of Treatment Health Maintenance Due Date Last Done Comments DTAP/TDAP/TD VACCINES (1 - Tdap) 1961 PNEUMOCOCCAL VACCINE 50+ (1 of 1 - PCV) 1992 ZOSTER VACCINE (1 of 2) 1992 Respiratory Syncytial Virus (RSV) Vaccine Pt: or over 60 yrs (1 - 1-dose 75+ series) 2017 COVID-19 VACCINE ( - 2023- season) 2024 07/30/2021, 01/09/2021, 12/19/2020 DEPRESSION SCREENING [...] patient's age to complete this topic Insurance [facility] MEDICARE ADV [employer] MEDICARE ADV SELF PAY NO INSURANCE Member Subscriber Plan / Payer (Ef fective for All Dates) Name:Reynold Reyez Member ID:Not on file Relation to Subscriber:Not on file Name:REYNOLD REYEZ Subscriber ID:Not on file Address: [address] [phone] Payer ID:Not on file Group ID:Not on file Type:Self Pay Address: [place], [place] [employer] MEDICARE ADV SELF PAY NO INSURANCE Member Subscriber Plan / Payer (Ef fective for All Dates) Name:Reynold Reyez Member ID:Not on file Relation to Subscriber:Not on file Name:REYNOLD REYEZ Subscriber ID:Not on file Address: [address] [phone] Payer ID:Not on file Group ID:Not on file Type:Self Pay Address: [place], [place] [employer] MEDICARE ADV SELF PAY NO INSURANCE Member Subscriber Plan / Payer (Ef fective for All Dates) Name:EfrainumbertoReynold jalloh Member ID:Not on file Relation to Subscriber:Not on file Name:EFRAINUMBERTOREYNOLD JALLOH Subscriber ID:Not on file Address: [address] [phone] Payer ID:Not on file Group ID:Not on file Type:Self Pay Address: [place], [place] SELF PAY NO INSURANCE Member Subscriber Plan / Payer (Ef fective for All Dates) Name:TayHerbert jallohhen Member ID:Not on file Relation to Subscriber:Not on file Name:DEREJEREYNOLD Subscriber ID:Not on file Address: [address] Payer ID:Not on file Group ID:Not on file Type:Self Pay Address: [place], [place] SELF PAY NO INSURANCE Member Subscriber Plan / Payer (Ef fective for All Dates) Name:Reynold Reyez Member ID:Not on file Relation to Subscriber:Not on file Name:REYNOLD REYEZ Subscriber ID:Not on file Address: [place] [address] Payer ID:Not on file Group ID:Not on file Type:Self Pay Address: [place] [employer] MEDICARE ADV SELF PAY NO INSURANCE Member Subscriber Plan / Payer (Ef fective for All Dates) Name:Reynold Reyez Member ID:Not on file Relation to Subscriber:Not on file Name:REYNOLD REYEZ Subscriber ID:Not on file Address: [place] [address] Payer ID:Not on file Group ID:Not on file Type:Self Pay Address: [place], [place] Care Teams Sculpture Conservator Relationship Specialty Start Date End Date Roberto Saleem MD [address] [place] [address] PCP - General 12/25/10 "
[2025-03-03 13:55] VITALS: BP 116/51; PULSE 63; RESP 18; TEMP 36.7; O2SAT 96
[2025-03-03] MEDS: OMEGA 3 POLYUNSAT FATTY ACIDS 1 GM CAP PO (16:41)
[2025-03-03 17:08] LABS: Glucose Point of Care 123 mg/dl (65-105)
[2025-03-03 19:45] VITALS: O2SAT 95
[2025-03-03 20:00] VITALS: O2SAT 97
[2025-03-03 20:22] LABS: Glucose Point of Care 136 mg/dl (65-105)
[2025-03-03 20:49] VITALS: PULSE 60
[2025-03-03] MEDS: PSYLLIUM SUGAR FREE POWDER PACKET 1 PACKET PO (20:50)
[2025-03-03 22:00] VITALS: BP 133/55; PULSE 60; RESP 18; TEMP 36.6; O2SAT 97
[2025-03-04 05:04] LABS: Basophils Percent Auto 0.8 % (0.2-1.2); Eosinophils Absolute Auto 0.2 K/mm3 (0-0.3); Eosinophils Percent Auto 3.9 % (0-4.4); Hematocrit 37.1 % (42.0-52.0); Hemoglobin 11.7 g/dL (14.0-18.0); Immature Granulocyte Absolute 0.02 K/mm3 (0.00-0.031); Immature Granulocyte Percent A 0.4 % (0-0.5); Immature Platelet Fraction Pct 2.3 % (0.9-11.2); Lymphocytes Absolute Auto 1.28 K/mm3 (0.9-3.2); Lymphocytes Percent Auto 24.7 % (18.3-44.2); Mean Corpuscular HGB Conc 31.5 g/dl (32-36); Mean Corpuscular Hemoglobin 29.5 pg (26-34); Mean Corpuscular Volume 93.7 fl (80-100); Mean Platelet Volume 9.6 fl (7.4-10.4); Monocytes Absolute Auto 0.7 K/mm3 (0.1-0.6); Monocytes Percent Auto 13.9 % (2.6-8.5); Neutrophils Absolute Auto 2.9 K/mm3 (1.3-6.7); Neutrophils Percent Auto 56.3 % (45.5-73.1); Platelet Count Result 155 k/mm3 (150-375); Red Blood Count 3.96 M/mm3 (4.6-6.20); Red Cell Distribution Width 15.9 % (11.5-14.5); White Blood Count 5.2 K/mm3 (4.5-10.0)
[2025-03-04 05:19] LABS: Alanine Aminotransferase 21 U/L (6-50); Albumin Level 3.7 g/dL (3.5-5.1); Alkaline Phosphatase 94 U/L (38-126); Anion Gap 9 mmol/L (4-12); Aspartate Amino Transferase 25 U/L (17-59); Bilirubin,Total 0.8 mg/dL (0.2-1.3); Blood Urea Nitrogen 16 mg/dL (9-20); Calcium 9.2 mg/dL (8.4-10.2); Carbon Dioxide 24 mmol/L (22-30); Chloride 103 mmol/L (98-107); Estimated CRCL calculation 85 ml/min; Estimated Glomerular Filt Rate > 60; Glucose 135 mg/dL (65-110); Potassium 3.4 mmol/L (3.4-5.0); Sodium 136 mmol/L (137-145)
[2025-03-04 06:00] VITALS: BP 133/48; PULSE 68; RESP 18; TEMP 36.6; O2SAT 98
[2025-03-04] MEDS: LEVOTHYROXINE SODIUM 100 MCG TABLET PO (06:24)
[2025-03-04 08:21] LABS: Glucose Point of Care 138 mg/dl (65-105)
[2025-03-04] MEDS: ASPIRIN 325 MG TABLET PO (09:24)
[2025-03-04] MEDS: CANDESARTAN CILEXETIL 16 MG TABLET 32 MG PO (09:25)
[2025-03-04] MEDS: OMEGA 3 POLYUNSAT FATTY ACIDS 1 GM CAP 2 GM PO (09:25)
[2025-03-04] MEDS: SITagliptin PHOSPHATE 100 MG TABLET PO (09:26)
[2025-03-04] MEDS: allopurinoL 300 MG TABLET PO (09:26)
[2025-03-04] MEDS: CELECOXIB 200 MG CAPSULE PO (09:26)
[2025-03-04] MEDS: CHOLECALCIFEROL 1,000 UNITS TABLET 2000 UNITS PO (09:26)
[2025-03-04] MEDS: carvediloL 25 MG TABLET PO (09:26)
[2025-03-04] MEDS: ATORVASTATIN 40 MG TABLET PO (09:26)
[2025-03-04] MEDS: guaiFENesin 12 HR 600 MG TABCR PO (09:27)
[2025-03-04] MEDS: hydroCHLOROthiazide 25 MG TABLET PO (09:27)
[2025-03-04] MEDS: amLODIPine BESYLATE 10 MG TABLET BY MOUTH (09:27)
[2025-03-04] MEDS: GLIMEPIRIDE 2 MG TABLET PO (09:27)
[2025-03-04] MEDS: ENOXAPARIN 40 MG/0.4 ML SYRINGE SUB-Q (09:27)
[2025-03-04] MEDS: FUROSEMIDE INJ 40 MG/4 ML VIAL IV PUSH (09:28)
[2025-03-04] MEDS: AZITHROMYCIN 250 MG TABLET PO (10:02)
--- NOTE | 2025-03-04 10:25 | P.DS_ITS ---
DS: Admitting Diagnosis Discharge Date 03/04/2025 Admitting Diagnosis SOB/PNA/CHF DS: Discharge Diagnosis Discharge Diagnosis (1) SOB (shortness of breath): Code(s): R06.02 - Shortness of breath Status: Acute Assessment and Plan: Pt denies SOB and edema today. - CXR: 1. Small bilateral pleural effusions. 2. Opacities in the bilateral lower lung zones most likely combination of atelectasis and mild pulmonary edema although pneumonia not excludable. - BNP 422, normal for age. Reporting LE edema and possible edema on CXR. See plan below. - recent COVID, + on 02/16. Increased concern for PNA component. - no current O2 requirement, monitor - stable overnight. Start diuresis for possible CHF exacerbation (hx of diastolic dysfunction) and abx for CAP. Scant BLE edema today, dependent. Pt feeling well and agreeable to go home. Denies SOB/CP or any other sx. Lungs sound great throughout, clear estrada. (2) CHF (congestive heart failure): Qualifiers: Heart failure chronicity: acute on chronic Heart failure type: diastolic Qualified Code(s): I50.33 - Acute on chronic diastolic (congestive) heart failure Code(s): I50.9 - Heart failure, unspecified Status: Acute Assessment and Plan: - History of grade 1 diastolic dysfunction, suspicion for acute on chronic CHF exacerbation - BNP 422, normal for age. However clinical signs of volume overload (peripheral edema, orthopnea) and on imaging. 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 - Echo (11/2022): Normal systolic function, estimated EF 60 65%, grade 1 diastolic dysfunction, no pulmonary hypertension, mild AV sclerosis, global longitudinal strain is abnormal. - patient not on a daily diuretic, start Lasix 40 mg IV daily. On HCTZ, continue. -->Upon D/C today, pt to continue HCTZ as well as home rx for Lasix 20mg PRN, educated today on when to take this medication and with what sx (BLE edema, SOB, orthopnea), also putting on D/C directions. - monitor I&Os and daily weights - stable - trend renal function - stable (3) Pneumonia: Qualifiers: Pneumonia type: due to COVID-19 virus Qualified Code(s): U07.1 - COVID- 19; J12.82 - Pneumonia due to coronavirus disease 2019 Code(s): J18.9 - Pneumonia, unspecified organism Status: Acute Assessment and Plan: - did not meet SIRS criteria. However, blood cultures obtained on 03/02, follow. - CXR showed possible bibasilar pneumonia - risk factors and complicating factors: Recent COVID infection - started on CAP tx: Ceftriaxone and azithromycin on 03/02 - supportive care - monitor WBC and O2 sat, VSS and WBC WDL, lungs clear all estrada - Denies SOB or CP today - Pt to D/C with Augmentin 875/125mg PO BID x5 days -->Received x1 dose of ceftriaxone in ED and azithromycin once admitted (4) DM type 2 (diabetes mellitus, type 2): Qualifiers: Diabetes mellitus complication status: without complication Diabetes mellitus chcf insulin use: without ocean transportation intermediary use Qualified Code(s): E11.9 - Type 2 diabetes mellitus without complications Code(s): E11.9 - Type 2 diabetes mellitus without complications Status: Acute Assessment and Plan: - hypoglycemia protocol - POC blood glucose ACHS - Continue home meds - correct regimen ordered - high dose TIDWM, based off BMI - Updated A1C% 7.3 -->F/u with PCP (5) Benign essential hypertension: Code(s): I10 - Essential (primary) hypertension Status: Acute Assessment and Plan: - chronic, currently controlled inpt - continue home medications: Amlodipine, Coreg, HCTZ, candesartan - monitor (6) LOUANN (obstructive sleep apnea): Code(s): G47.33 - Obstructive sleep apnea (adult) (pediatric) Status: Acute Assessment and Plan: - continue home CPAP DS: Summary Hospital Course Reason for hospitalization: PNA/CHF Hospital Course: Patient is an 84-year-old male with a past medical history of gout, AAA that has ruptured and repaired, LOUANN, TIA, bladder cancer, hypothyroidism, CVA, diabetes, hyperlipidemia, and hypertension presents to the emergency department for shortness of breath on 03/02. He says that the shortness of breath and some mild orthopnea started 2 days prior. Patient also presenting with mild bilateral lower extremity edema. Patient denies chest pain, fever, chills, or any other issues. Patient was recently diagnosed with URI via PCP and was prescribed cefdinir 300 mg b.i.d. times 10 days on February 24, reported in the ED that he still had congestion and mild cough. Vitals stable in the emergency department. White blood count normal hospital with all other normal labs including kidney workup. BNP 422 initial troponin was negative. CXR showed small bilateral pleural effusions and opacities in the bilateral lower lung zones (atelectasis and mild pulmonary edema favored, pneumonia cannot be excluded). Blood cultures were obtained in the emergency department, negative. Patient was given 1 dose of ceftriaxone in the emergency department. Patient also with a significant history of positive for COVID on February 16. While inpatient pt was started on azithromycin IV, with daily Lasix IV 20 mg. ? history of CHF, patient reports that the last time he went to his magnetic resonance imaging director was 2 years ago and then they retired. Per chart examination, history of grade 1 diastolic dysfunction per last echo in 2022 with an EF of 60-65%. Updated echocardiogram was performed on March 03 while inpatient here with stable EF of 60-65% also showing the history of the diastolic dysfunction with trace mitral valve regurgitation and mild tricuspid regurgitation as well as mild pulmonary hypertension 39 mmHg. Patient to establish care with a magnetic resonance imaging director upon discharge, educated patient on the importance of this. Patient not on daily diuretics at home is on hydrochlorothiazide. Weights here had been stable declining mildly, vital signs have been stable as well as lab work. Patient to continue home medication all except the cefdinir. Patient is feeling well and will be discharged today. Status at Discharge Cognitive/behavioral status at discharge: Stable Time Spent with Patient Time attestation: Total time spent providing and/or coordinating discharge services: Exam Const: General: comfortable and no acute distress HENMT: Face/Nose/Sinus: Normal nares present Mouth: Yes moist mucous membranes Eyes: General: appearance normal, both eyes and all related structures Sc valarie: sclerae normal Neck: Neck: supple and no JVD Carotids: no bruits Resp: Effort & Inspection: normal respiratory effort Auscultation: clear to auscultation bilaterally Cardio: Rate: regular rate Rhythm: regular rhythm GI: GI Palp: Yes Soft to palpation and No Tenderness to palpation present (GI) Auscultation: normal bowel sounds Skin: General skin exam: normal color and no rashes or lesions noted Wounds: no wounds Neuro: General: gait normal Motor exam (neuro): Normal motor muscle tone present throughout Sensory Exam: normal sensation Extrem: Other: BLE with trace, dependent edema Psych: Mental Status: mental status grossly normal Affect: normal affect DS: Data Data Completed and Pending Labs on day of discharge: Labs from last 24 hours 03/04/25 03/04/25 03/03/25 08:17 04:49 20:08 WBC 5.2 RBC 3.96 L Hgb 11.7 L Hct 37.1 L MCV 93.7 MCH 29.5 MCHC 31.5 L RDW 15.9 H Plt Count 155 MPV 9.6 Immature Gran % (Auto) 0.4 Neut % (Auto) 56.3 Lymph % (Auto) 24.7 Shackelford % (Auto) 13.9 H Eos % (Auto) 3.9 Baso % (Auto) 0.8 Lymph # (Auto) 1.28 Shackelford # (Auto) 0.7 H Eos # (Auto) 0.2 Baso # (Auto) 0.0 Abs Immat Gran (auto) 0.02 Absolute Neuts (auto) 2.9 Absolute Nucleated RBC 0.000 Nucleated RBC % 0.0 % Immature Plt Fraction 2.3 Sodium 136 L Potassium 3.4 Chloride 103 Carbon Dioxide 24 Anion Gap 9 BUN 16 Creatinine 0.77 Estim Creat Clear Calc 85 Estimated GFR > 60 Glucose 135 H POC Capillary Glucose 138 H 136 H Calcium 9.2 Total Bilirubin 0.8 AST 25 ALT 21 Alkaline Phosphatase 94 Total Protein 6.0 L Albumin 3.7 03/03/25 03/03/25 16:58 11:54 WBC RBC Hgb Hct MCV MCH MCHC RDW Plt Count MPV Immature Gran % (Auto) Neut % (Auto) Lymph % (Auto) Shackelford % (Auto) Eos % (Auto) Baso % (Auto) Lymph # (Auto) Shackelford # (Auto) Eos # (Auto) Baso # (Auto) Abs Immat Gran (auto) Absolute Neuts (auto) Absolute Nucleated RBC Nucleated RBC % % Immature Plt Fraction Sodium Potassium Chloride Carbon Dioxide Anion Gap BUN Creatinine Estim Creat Clear Calc Estimated GFR Glucose POC Capillary Glucose 123 H 133 H Calcium Total Bilirubin AST ALT Alkaline Phosphatase Total Protein Albumin Preliminary micro results at discharge 03/02/25 16:55 Blood Culture - Preliminary Blood 03/02/25 15:30 Blood Culture - Preliminary Blood Discharge Plan Discharge Attending physician on discharge: Tessa Madrid Discharging Clinician: Tessa Madrid Anticipated Discharge Date/Time: 03/04/25 12:00 Patient Disposition: Home Activity: may shower Diet: heart healthy Discharge Instructions: 1. Make sure to follow-up with your primary care provider in 1-2 weeks 2. Make sure to establish care with a magnetic resonance imaging director, this is important! 3. I am sending you home with a prescription for Augmentin, you will have 5 more days of this once home. 4. I am also sending you home with a prescription for a water pill Furosemide (Lasix). I want you to take this on an as needed basis for issues breathing when lying down, increased swelling in your legs despite elevation, and/or weight gain of 2-3lbs in a day or 5-7lbs in a week, you will just take one pill daily if you are having these symptoms. 5. Continue to take your home medications 6. Come back to the ER if you are having any of the above symptoms that are not resolved with the Furosemide medication. Patient Instructions: Antibiotic Form, Furosemide (By mouth), Amoxicillin/Clavulanate Potassium (By mouth), Heart Failure (GEN), Community Acquired Pneumonia (ED) Patient Language: Khmer Stand Alone Forms: General Discharge Information Follow-up/Referrals: Alfredo Contreras DO [Physician] - 2 Weeks (Establish care, check in on CHF and Lasix use) Roberto Saleem MD [Primary Care Provider] - 2 Weeks (Update on admission, follow- up on lasix/CHF.) Discharge Medications: New amoxicillin-pot clavulanate 875-125 mg tablet 1 tablet PO Q12H 5 Days Qty: 10 0RF Continued Centrum Silver 1 tab-cap PO DAILY aspirin 325 mg tablet 325 mg PO DAILY testosterone [AndroGel] 20.25 mg/1.25 gram (1.62 %) gel in metered-dose pump 2 pump TOPICAL DAILY Patient Comments: 20.25mg omega-3 fatty acids [Fish Oil Concentrate] 1,000 mg capsule 3,000 mg PO DAILY Rx Instructions: TAKES 2000MG MORNING & 1000MG EVENING (DME) blood-glucose meter [Blood Glucose Monitoring] Kit See Rx Instructions .Route Qty: 1 0RF Rx Instructions: As directed (DME) lancets 23 gauge misc See Rx Instructions .Route Qty: 100 1RF Rx Instructions: As directed psyllium husk [Metamucil] 0.52 gram Capsule 1.04 g PO HS atorvastatin 80 mg tablet 40 mg PO DAILY Gemtesa 75 mg tablet 75 mg PO DAILY cholecalciferol (vitamin D3) 50 mcg (2,000 unit) capsule 50 mcg PO DAILY hydrochlorothiazide 25 mg tablet See Rx Instructions .ROUTE .COMPLEX Qty: 90 1RF Dose Instruction: TAKE 1 TABLET BY MOUTH DAILY Patient Comments: QAM Rx Instructions: TAKE 1 TABLET BY MOUTH DAILY celecoxib [Celebrex] 200 mg capsule 200 mg PO BID Qty: 180 1RF candesartan 32 mg tablet See Rx Instructions .ROUTE .COMPLEX Qty: 90 1RF Dose Instruction: TAKE 1 TABLET BY MOUTH DAILY Patient Comments: QAM Rx Instructions: TAKE 1 TABLET BY MOUTH DAILY carvedilol 25 mg tablet See Rx Instructions .ROUTE .COMPLEX Qty: 180 1RF Dose Instruction: TAKE 1 TABLET BY MOUTH TWICE DAILY Rx Instructions: TAKE 1 TABLET BY MOUTH TWICE DAILY levothyroxine 100 mcg tablet See Rx Instructions .ROUTE .COMPLEX Qty: 90 1RF Dose Instruction: TAKE 1 TABLET BY MOUTH DAILY Patient Comments: QAM Rx Instructions: TAKE 1 TABLET BY MOUTH DAILY metformin 500 mg tablet See Rx Instructions .ROUTE .COMPLEX Qty: 90 1RF Dose Instruction: TAKE 1 TABLET(500 MG) BY MOUTH DAILY WITH THE EVENING MEAL Rx Instructions: TAKE 1 TABLET(500 MG) BY MOUTH DAILY WITH THE EVENING MEAL allopurinol 300 mg tablet See Rx Instructions .ROUTE .COMPLEX Qty: 90 1RF Dose Instruction: TAKE 1 TABLET BY MOUTH DAILY Rx Instructions: TAKE 1 TABLET BY MOUTH DAILY Tradjenta 5 mg tablet See Rx Instructions .ROUTE .COMPLEX Qty: 90 1RF Dose Instruction: TAKE 1 TABLET BY MOUTH IN THE MORNING Rx Instructions: TAKE 1 TABLET BY MOUTH IN THE MORNING glimepiride 2 mg tablet 2 mg PO QAM Rx Instructions: administer with breakfast dapaglifloz propaned-metformin 10-1,000 mg tablet, IR - ER, biphasic 24hr 1 tablet PO DAILY Qty: 90 1RF Patient Comments: QAM (DME) True Metrix Glucose Test Strip Strip See Rx Instructions .ROUTE .COMPLEX Qty: 50 1RF Dose Instruction: USE TO TEST ONCE DAILY DIRECTED BY PRESCRIBER Rx Instructions: USE TO TEST ONCE DAILY DIRECTED BY PRESCRIBER lorazepam 1 mg tablet 1 mg PO BID PRN (Reason: anxiety) Qty: 60 0RF amlodipine 10 mg tablet See Rx Instructions .ROUTE .COMPLEX Qty: 90 1RF Dose Instruction: TAKE 1 TABLET BY MOUTH EVERY MORNING AND 1/2 TABLET EVERY EVENING Rx Instructions: TAKE 1 TABLET BY MOUTH EVERY MORNING. Date of admission: 03/03/25 11:48 Primary Care Provider: Roberto Saleem Admitting Provider: Neal White Attending physician on admission: Neal White Condition: Stable Quality VTE Prophylaxis VTE prophylaxis: pharmacologic ordered
[2025-03-08 09:59] LABS: Glucose Point of Care 177 mg/dl (65-105)
== END 2025-03-04 11:45 | disposition home or self-care (01) | DRG 193 ==
LOC: ANHED 14:23 → ANH2MED 15:16
PROVIDERS: Student in an Organized Health Care Education/Training Program; Admitting Provider Internal Medicine; Emergency Provider Emergency Medicine; PCP Internal Medicine
DX: J18.9 Pneumonia, unspecified organism (principal); I50.33 Acute on chronic diastolic (congestive) heart failure; I11.0 Hypertensive heart disease with heart failure; E11.9 Type 2 diabetes mellitus without complications; G47.33 Obstructive sleep apnea (adult) (pediatric); E03.9 Hypothyroidism, unspecified; E78.5 Hyperlipidemia, unspecified; Z86.16 Personal history of COVID-19; Z85.51 Personal history of malignant neoplasm of bladder; Z86.73 Personal history of transient ischemic attack (TIA), and cerebral infarction without residual deficits
CPT/HCPCS: 36415; 71046; 80048; 80053; 82948; 83036; 83880; 84484; 85025; 85055; 85610; 85730; 87040; 93005; 93306; 94640; 96365; 96367; 96375; 99285; A9270; G0378; J0456; J0696; J1650; J1938

== ENCOUNTER 2025-05-22 11:18 | Outpatient (CLI) | payer MEDICARE, SELFPAY ==
--- NOTE | ~2025-05-22 | CT_ITS ---
CLINICAL INDICATION: Solitary pulmonary nodule. History of bladder cancer. COMPARISON: Reference is made to a PET performed 12/16/2023 which demonstrated a 13 mm solid nodule wi thout increased metabolic activity within the lingula, stable from 07/16/2021. Reference is also made to multiple the abdomen (with also demonstrated this lingular nodule) performed most recently on 11/24 and dating back to 05/11/2019. TECHNIQUE: Multiple contiguous axial images of the chest was performed without the administration of intravenous contrast. This CT examination was performed utilizing dose reduction techniques. DLP: 269 mGy-cm FINDINGS/OBSERVATIONS: LUNG: Redemonstration of a hard solid nodule within the lingula with irregular borders (axial series, image 80), unchanged in morphology dating back to 07/16 2021 (axial series, image 16). Minimal increase in size in a single dimension now measuring 13 x 16.2 x 15.2 mm (anterior to posteri or x medial to lateral x cranial to caudal dimension) when compared to most recent CT examination of the abdomen which showed this mass measuring 13 x 14.1 x 15.2 mm (anterior to posterior x medial to lateral x cranial to caudal dimension). An additional part solid nodule is now identified within the posterior segment of the right upper lob e (with similar morphology) measuring 17 x 19.2 x 18.5 mm (anterior to posterior x medial to lateral x cranial to caudal dimension). This focus was not present on the PET CT of 12/16/2023. The remainder of the lungs are clear, without suspicious solid or groundglass nodule identified. HEART: The heart is of normal size, without pericardial effusion. MEDIASTINUM: No pathologically enlarged or morphologically suspicious lymph nodes are identified within the medias tinum, bilateral axilla, within the soft tissues of the anterior chest wall. SOFT TISSUES OF THE CHEST: Unremarkable. BONES OF THE CHEST: No acute fracture. No lytic or blastic lesions are identified. There are bridging endplate osteophytes at multiple levels in the thoracic spine, consistent with dif fuse idiopathic skeletal hyperostosis (DISH). IMPRESSION: Interval increase in size of a part solid nodule within the lingula. Interval development of a second nodule within the right upper lobe, similar in morphology, not prese nt on the previous examination. Follow-up as per Fleischner guidelines is recommended. This consists of short-term CT follow-up (3 months) PET/CT or tissue sampling, Reviewed, dictated and finalized at location A. IMPRESSION: Interval increase in size of a part solid nodule within the lingula. Interval development of a second nodule within the right upper lobe, similar in morphology, not present on the previous examination. Follow-up as per Fleischner guidelines is recommended. This consists of short-term CT follow-up (3 months) PET/CT or tissue sampling,
--- OUTSIDE RECORDS SUMMARY | 2025-05-22 11:26 | XMS_ITS | Clinical Summary ---
Author Organization [facility] Office Center Address [address] [place] [address] Care Team Providers Care Grader Green Meat Name Role Phone Nomi Moore MD PhD Unavailable [phone] Roberto Saleem MD Primary Care Provider [phone] Spencer Fulton MD Unavailable [phone] Allergies Active Allergy Reactions Criticality Noted Date Comments Lisinopril Cough Low 10/21/2021 Morphine Itching Medium 10/21/2021 Oxycodone Mental status changes,Delusions Medium 04/2024 Medications hydroCHLOROthiazid e (HYDRODIURIL) 25 mg tablet Take 1 tablet (25 mg total) by mouth every morning Active levothyroxine (SYNTHROID) 100 mcg tablet Take 1 tablet (100 mcg total) by mouth 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 Tompkins Immunizations Immunization Administration Dates [...] Coronary artery disease [address] a[address] [facility] by Dr. Tompkins Cataract Hyperlipidemia Gout Sleep [...] on file Legal Sex Male 12:37 PM WHEEL GRINDER Gender Identity Male 02/02/2022 11:05 AM CDT Sexual Orientation Straight 02/02/2022 11 :05 AM CDT Obstetrics History Last Filed Vital Signs Vital Sign Reading Time Taken Comments Blood Pressure 137/65 10/07/2024 8:35 AM WHEEL GRINDER Pulse 84 10/07/2024 8:35 AM WHEEL GRINDER Temperature 36.6 C (97.9 F) 10/07/2024 8:35 AM WHEEL GRINDER Respiratory Rate 18 10/07/2024 8:35 AM WHEEL GRINDER Oxygen Saturation 98% 10/07/2024 8:35 AM WHEEL GRINDER Inhaled Oxygen Concentration - - Weight 124.7 kg (274 lb 14.6 oz) 10/06/2024 8:55 AM WHEEL GRINDER Height 180.3 cm (5' 10.98) 10/06/2024 8:[address] Body Mass Index 38.36 10/06/2024 8:55 AM WHEEL GRINDER Plan of Treatment Health Maintenance Due Date Last Done Comments Albumin Creatinine Ratio, Urine 1942 Depression Screening 1942 Dilated Eye Exam 1942 Foot Exam 1942 DTaP/Tdap/Td Vaccine (1 - Tdap) 1953 Hepatitis B Screening 1960 Well Visit 65+ 2007 Lipid Panel 11/01/2020 11/01/2019, 10/31/2019 Covid-19 Vaccine (4 - 2023-2 5 season) 2024 07/30/2021, 01/09/2021, 12/19/2020 Hemoglobin A1C 02/22/2025 08/24/2024, 10/01, 10/31/2019 Influenza Vaccine (#1) 2025 , 07/12/2021, 06/27/2020, Additional history exists eGFR 08/24/2025 08/24/2024, 12/31, 01/10/2024, Additional history exists Fall Risk Assessment 10/07/2025 10/07/2024 Zoster Vaccine Completed 08/17/2019, 07/02, 05/03/2019 Pneumococcal vaccine 65+ Completed 023, 08/05/2018, 10/01/2009 Medical Devices Implanted Type Area Automotive Brake Adjuster Device Identifier Shelf Expiration Date Model / Serial / Lot Total Hip Bilatera l: Hip [employer] Triathlon Tritanium Knee 7 Baseplate Tibial 5536-B-700 - [id number] Implanted:Qty: 1 on 01/20/2024 by Spencer Fulton MD at [facility] Right: Knee [employer] [id number] 09/27/2028 5536-B-70 0 / / [id number] [employer] Triathlon Cruciate Retain Bead Knee Right 7 Component Femoral Pa 5517-F-702 - [id number] Implanted:Qty: 1 on 01/20/2024 by Spencer Fulton MD at [facility] Right: Knee [employer] [id number] 11/04/2027 5517-F-70 2 / / [id number] [employer] Tritanium 38mm 11mm Asymmetric Knee Component Patellar Metal 5552-L-381 - [id number] Implanted:Qty: 1 on 01/20/2024 by Spencer Fulton MD at [facility] Right: Knee [employer] [id number] 12/11/2025 5552-L-38 1 / / [id number] [employer] Insert Tibial Triathlon 7 H9mm Knee Bearing Condylar Stabilize Sterile 0776-S-652-E - [id number] Implanted:Qty: 1 on 01/20/2024 by Spencer Fulton MD at [facility] Right: Knee [employer] [id number] 08/14/2028 5531-G-70 9-E / / [id number] [employer] Tritanium 38mm 11mm Asymmetric Knee Component Patellar Metal 5552-L-381 - [id number] Implanted:Qty: 1 on 10/06/2024 by Spencer Fulton MD at [facility] Left: Knee [employer] [id number] 07/16/2029 5552-L-38 1 / / [id number] [employer] Triathlon Cruciate Retain Bead Knee Left 8 Component Femoral Pa 5517-F-801 - [id number] Implanted:Qty: 1 on 10/06/2024 by Spencer Fulton MD at [facility] Left: Knee [employer] [id number] 07/15/2027 5517-F-80 1 / / [id number] [employer] Insert Tibial Triathlon 7 H10mm Knee Bearing Condylar Stabilize Sterile 4924-P-687-E - [id number] Implanted:Qty: 1 on 10/06/2024 by Spencer Fulton MD at [facility] Left: Knee [employer] [id number] 05/18/2029 5531-G-71 0-E / / [id number] [employer] Triathlon Tritanium Knee 7 Baseplate Tibial 5536-B-700 - [id number] Implanted:Qty: 1 on 10/06/2024 by Spencer Fulton MD at [facility] Left: Knee [employer] [id number] 07/27/2029 5536-B-70 0 / / [id number] Procedures Procedure Name Priority Date/Time Associated Diagnosis Comments EGFR Routine 08/24/2024 11:09 AM CDT Preop testing HEMOGLOBIN A1C Routine 08/24/2024 11:09 AM CDT Preop testing LIPID PANEL Routine 11/01/2019 4:44 AM WHEEL GRINDER from Last 3 Months or Most Recently [...] ORDERABLES Fin al Result Performing Organization Address City/[facility]/ZIP Co de Phone Number [facility] [address] Department of Laboratories [place], [place] [id number] * (ABNORMAL) Hemoglobin A1c (08/24/2024 11:09 AM CDT) Hgb A1C 7.0(H) 4.0 - 5.6 % Estimated Average Glucose 154 mg/dL [facility] Comment: The ADA recommends reporting an estimated Average Glucose (eAG) with all Hemoglobin A1c results using the equation derived from a study of 507 normal and diabetic adults. Minority populations were underrepresented and children were not included. (Diabetes Care 31:0285-4267, 2008). The eAG is not equivalent to a fasting glucose. Blood 08/24/2024 11:0 9 AM CDT 08/24/2024 11:09 AM CDT Tabby RUBIO LAB BLOOD ORDERABLES Fin al Result Performing Organization Address City/[facility]/ZIP Co de Phone Number [facility] [address] Department [place] [address] * (ABNORMAL) Lipid panel (11/01/2019 4:44 AM WHEEL GRINDER) Cholesterol 127 30 - 199 mg/dL [facility] Comment: Interpretive Data Ages < or [...] on 2018. Triglycerides 250(H) <=149 mg/dL [facility] Comment: Interpretive Data Ages < or [...] on 2018. HDL 33(L) >=40 mg/dL [facility] Comment: Interpretive Data Ages < or [...] 2018. LDL, calculated 44 <=129 mg/dL [facility] Comment: Interpretive Data Ages < or [...] on 2018. Non-HDL Cholesterol 94 mg/dL [facility] Comment: Interpretive Data Ages < or [...] revised on 2018. Chol/HDL ratio [address] [facility] Blood specimen (specimen) 11/01/2019 4:44 AM WHEEL GRINDER 11/01/2019 5:17 AM WHEEL GRINDER us Kenzie Amaya MD LAB BLOOD ORDERABLES Final Result [facility] [address] Department [place] [address] from Last 3 Months or Most Recently Relevant to Health Maintenance Insurance [facility] MEDICARE ADVANTAGE [facility] Address: [address] [place] [address] [facility] Address: [facility] [id number] [place] [address] [employer]HC MEDICARE ADVANTAGE [facility] MEDICARE [facility] Address: [address] [place] [address] Advance Directives For more information, please contact: [phone] Documents on File Type Date Recorded Patient Stack Matcher Expl anation ADVANCE DIRECTIVE 01/25/2024 2:02 AM POWER OF RADIO ANNOUNCER-MEDICAL * Full Code (Latest Code Status on File) Date Activated Date Inactivated Comments 10/06/2024 6:40 PM 10/07/2024 3:38 PM * Full Code Date Activated Date Inactivated Comments 01/20/2024 12:53 PM 01/21/2024 4:25 PM * Full Code Date Activated Date Inactivated Comments 10/31/2019 7:01 PM 11/01/2019 6:11 PM Care Teams Grader Green Meat Relationship Specialty Start Date End Date Roberto Saleem MD [address] [place] [address] PCP - General 10/31/19 Nomi Moore MD PhD [address] [facility] [address] [place] [address] Consulting Physician Neurology 11/01/19 Spencer Fulton MD [address] [address] Consulting Physician Orthopedic Surgery 10/26/23
--- OUTSIDE RECORDS SUMMARY | 2025-05-22 11:26 | XMS_ITS | Clinical Summary ---
Author Organization [facility] Address [address] [place] [address] Care Team Providers Care Cafeteria Manager Name Role Phone Roberto Saleem MD Primary Care Provider [phone] Allergies Active Allergy Reactions Criticality Noted Date [...] Gel AndroGel Active Lancets (ONETOUCH DELICA PLUS [id number]) [facility] OneTouch Delica Plus Lancet 30 gauge Active Blood Glucose Monitoring Suppl (ONETOUCH PING METER REMOTE) Supplies [facility] OneTagTagCity Verio Flex Meter Active betamethasone dipropionate 0.05 [...] Noted Date Diagnosed Date Lumbar radiculopathy 07/16/2023 Encounters Date Type Department Care Team Description 05/15/2025 Telephone [facility] [place] [address] [id number] Amirah Page RN Postprocedure Call 05/15/2025 Prep for Procedure [facility] [place] [address] [id number] Kenzie Chen, ONLINE TRADER from Last 3 Months Family History Medical History Relation Comments Coronary [...] 08/03/2024 1:12 PM CDT Plan of Treatment Upcoming Encounters Date Type Department Care Team (Latest Contact Info) Description 07/09/2025 1:20 PM CDT Hospital Encounter [facility] [place] [address] [id number] Dona Rodriugez MD [address] [facility] [address] [place] [id number] 07/09/2025 1:20 PM CDT - 07/09/2025 1:40 PM CDT Surgery [facility] [place] [place] [address] [id number] Dona Rodriguez MD [facility] [address] [place] [address] INJECTION EPIDURAL TRANSFORAMINAL-L5- S1 Scheduled Procedures Name Priority Associated Diagnoses Date/Ti me INJECTION EPIDURAL TRANSFORAMINAL Lumbar radiculopathy 07/09/2025 1:20 PM CDT Health Maintenance Due Date Last Done Comments [...] on patient's age to complete this topic Goals Goal Patient Goal Type Associated Problems Recent Progress Patient-Stated? Author Autogenera kaylynn Goal Care Plan Autogenerated Problem No Amirah Page RN Additional Health Concerns Active Problems Noted Date Diagnosed Date Autogenerated Problem 05/15/2025 Insurance [employer] Care Teams Cafeteria Manager Relationship Specialty Start Date End Date Roberto Saleem MD [address] [facility] [address] [place] [address] PCP - General INTERNAL MEDICINE 02/17/22
--- OUTSIDE RECORDS SUMMARY | 2025-05-22 11:26 | XMS_ITS | Referral Summary ---
Author Organization [facility] Address [address] [place] [address] Care Team Providers Care Braker Passenger Train Name Role Phone Nomi Moore MD PhD Unavailable [phone] Roberto Saleem MD Primary Care Provider [phone] Spencer Fulton MD Unavailable [phone] Allergies Active Allergy Reactions Criticality Noted Date Comments Lisinopril Cough Low 10/21/2021 Morphine Itching Medium 10/21/2021 Oxycodone Mental status changes,Delusions Medium 04/2024 Medications hydroCHLOROthiazid e (HYDRODIURIL) 25 mg tablet Take 1 tablet (25 mg total) by mouth every morning Active levothyroxine (SYNTHROID) 100 mcg tablet Take 1 tablet (100 mcg total) by mouth 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 Tompkins Immunizations Immunization Administration Dates [...] on file Legal Sex Male 12:37 PM DESIGN ENG Gender Identity Male 02/02/2022 11:05 AM CDT Sexual Orientation Straight 02/02/2022 11 :05 AM CDT Last Filed Vital Signs Vital Sign Reading Time Taken Comments Blood Pressure 137/65 10/07/2024 8:35 AM DESIGN ENG Pulse 84 10/07/2024 8:35 AM DESIGN ENG Temperature 36.6 C (97.9 F) 10/07/2024 8:35 AM DESIGN ENG Respiratory Rate 18 10/07/2024 8:35 AM DESIGN ENG Oxygen Saturation 98% 10/07/2024 8:35 AM DESIGN ENG Inhaled Oxygen Concentration - - Weight 124.7 kg (274 lb 14.6 oz) 10/06/2024 8:55 AM DESIGN ENG Height 180.3 cm (5' 10.98) 10/06/2024 8:55 AM C Body Mass Index 38.36 10/06/2024 8:55 AM DESIGN ENG Plan of Treatment Not on file Medical Devices Implanted Type Area Drum Sander Device Identifier Shelf Expiration Date Model / Serial / Lot Total Hip Bilatera l: Hip [employer] Triathlon Tritanium Knee 7 Baseplate Tibial 5536-B-700 - [id number] Implanted:Qty: 1 on 01/20/2024 by Spencer Fulton MD at [facility] Right: Knee [employer] [id number] 09/27/2028 5536-B-70 0 / / [id number] [employer] Triathlon Cruciate Retain Bead Knee Right 7 Component Femoral Pa 5517-F-702 - [id number] Implanted:Qty: 1 on 01/20/2024 by Spencer Fulton MD at [facility] Right: Knee [employer] [id number] 11/04/2027 5517-F-70 2 / / [id number] [employer] Tritanium 38mm 11mm Asymmetric Knee Component Patellar Metal 5552-L-381 - [id number] Implanted:Qty: 1 on 01/20/2024 by Spencer Fulton MD at [facility] Right: Knee [employer] [id number] 12/11/2025 5552-L-38 1 / / [id number] [employer] Insert Tibial Triathlon 7 H9mm Knee Bearing Condylar Stabilize Sterile 8217-O-984-E - [id number] Implanted:Qty: 1 on 01/20/2024 by Spencer Fulton MD at [facility] Right: Knee [employer] [id number] 08/14/2028 5531-G-70 9-E / / [id number] [employer] Tritanium 38mm 11mm Asymmetric Knee Component Patellar Metal 5552-L-381 - [id number] Implanted:Qty: 1 on 10/06/2024 by Spencer Fulton MD at [facility] Left: Knee [employer] [id number] 07/16/2029 5552-L-38 1 / / [id number] [employer] Triathlon Cruciate Retain Bead Knee Left 8 Component Femoral Pa 5517-F-801 - [id number] Implanted:Qty: 1 on 10/06/2024 by Spencer Fulton MD at [facility] Left: Knee [employer] [id number] 07/15/2027 5517-F-80 1 / / [id number] [employer] Insert Tibial Triathlon 7 H10mm Knee Bearing Condylar Stabilize Sterile 6279-V-050-E - [id number] Implanted:Qty: 1 on 10/06/2024 by Spencer Fulton MD at [facility] Left: Knee [employer] [id number] 05/18/2029 5531-G-71 0-E / / [id number] [employer] Triathlon Tritanium Knee 7 Baseplate Tibial 5536-B-700 - [id number] Implanted:Qty: 1 on 10/06/2024 by Spencer Fulton MD at [facility] Left: Knee [employer] [id number] 07/27/2029 5536-B-70 0 / / [id number] Procedures Procedure Name Priority Date/Time Associated Diagnosis Comments EGFR Routine 08/24/2024 11:09 AM CDT Preop testing HEMOGLOBIN A1C Routine 08/24/2024 11:09 AM CDT Preop testing LIPID PANEL Routine 11/01/2019 4:44 AM DESIGN ENG from Last 3 Months or Most Recently [...] RUBIO LAB BLOOD ORDERABLES Fin al Result [facility] [address] Department [place] [address] * (ABNORMAL) Hemoglobin A1c (08/24/2024 11:09 AM CDT) Hgb A1C 7.0(H) 4.0 - 5.6 % Estimated Average Glucose 154 mg/dL [facility] Comment: The ADA recommends reporting an estimated Average Glucose (eAG) with all Hemoglobin A1c results using the equation derived from a study of 507 normal and diabetic adults. Minority populations were underrepresented and children were not included. (Diabetes Care 31:4802-5108, 2008). The eAG is not equivalent to a fasting glucose. Blood 08/24/2024 11:0 9 AM CDT 08/24/2024 11:09 AM CDT us Tabby RUBIO LAB BLOOD ORDERABLES Fin al Result [facility] [address] Department [place] [address] * (ABNORMAL) Lipid panel (11/01/2019 4:44 AM DESIGN ENG) Cholesterol 127 30 - 199 mg/dL [facility] Comment: Interpretive Data Ages < or = [...] on 2018. Triglycerides 250(H) <=149 mg/dL [facility] Comment: Interpretive Data Ages < or = [...] on 2018. HDL 33(L) >=40 mg/dL [facility] Comment: Interpretive Data Ages < or = [...] 2018. LDL, calculated 44 <=129 mg/dL [facility] Comment: Interpretive Data Ages < or = [...] on 2018. Non-HDL Cholesterol 94 mg/dL [facility] Comment: Interpretive Data Ages < or = [...] revised on 2018. 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 Expl anation ADVANCE DIRECTIVE 01/25/2024 2:02 AM 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 OF VOICE TEACHER-MEDICAL * Full Code (Latest Code Status on File) Date Activated Date Inactivated Comments 10/06/2024 6:40 PM 10/07/2024 3:38 PM * Full Code Date Activated Date Inactivated Comments 01/20/2024 12:53 PM 01/21/2024 4:25 PM * Full Code Date Activated Date Inactivated Comments 10/31/2019 7:01 PM 11/01/2019 6:11 PM Care Teams Braker Passenger Train Relationship Specialty Start Date End Date Roberto Saleem MD [address] [place] [address] PCP - General 10/31/19 Nomi Moore MD PhD [address] [facility] [address] [place] [address] Consulting Physician Neurology 11/01/19 Spencer Fulton MD [address] [address] Consulting Physician Orthopedic Surgery 10/26/23
--- OUTSIDE RECORDS SUMMARY | 2025-05-22 11:27 | XMS_ITS | Clinical Summary ---
Author Organization [facility] Address [address] [facility] [place] [address] Care Team Providers Care Publications Distribution Clerk Name Role Phone Roberto Saleem MD Primary Care Provider [phone] Source Comments [facility],non-[facility] Affiliates and Associated Physician Practices is amultiple site organization consisting of ambulatory clinics and hospital sitesin [place], [place], [place] and [place]. This disclosure is being madepursuant to the Care Everywhere program and may not contain all information available regarding this patient. 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 Gender Identity Not on file Sexual Orientation Not on file Last Filed Vital Signs Vital Sign Reading Time Taken Comments Blood Pressure 152/80 11/09/2013 9:56 AM UTILITY SYSTEM REPAIRER Pulse 61 11/09/2013 9:56 AM UTILITY SYSTEM REPAIRER Temperature - - Respiratory Rate 18 11/09/2013 9:56 AM UTILITY SYSTEM REPAIRER Oxygen Saturation - - Inhaled Oxygen Concentration - - Weight 142.9 kg (315 lb) 11/09/2013 9:56 AM UTILITY SYSTEM REPAIRER Height - - Body Mass Index - [...] MEDICARE AWV CALENDAR YEAR 2024 INFLUENZA VACCINE (#1) 2025 , 06/27/2020, 08/17/2019, Additional history exists HEPATITIS B [...] age to complete this topic Insurance [employer] MEDICARE ADV SELF PAY NO INSURANCE Member Subscriber Plan / Payer (Ef fective for All Dates) Name:Reynold Reyez Member ID:Not on file Relation to Subscriber:Not on file Name:REYNOLD REYEZ Subscriber ID:Not on file Address: [address] [place] [address] Payer ID:Not on file Group ID:Not on file Type:Self Pay Address: [place], [place] [employer] MEDICARE ADV SELF PAY NO INSURANCE Member Subscriber Plan / Payer (Ef fective for All Dates) Name:Reynold Reyez Member ID:Not on file Relation to Subscriber:Not on file Name:REYNOLD REYEZ Subscriber ID:Not on file Address: [place] [address] Payer ID:Not on file Group ID:Not on file Type:Self Pay Address: [place], [place] [employer] MEDICARE ADV SELF PAY NO INSURANCE Member Subscriber Plan / Payer (Ef fective for All Dates) Name:Reynold Reyez Member ID:Not on file Relation to Subscriber:Not on file Name:REYNOLD REYEZ Subscriber ID:Not on file Address: [address] [place] [address] Payer ID:Not on file Group ID:Not on file Type:Self Pay Address: [place], [place] [employer] MED[employer]ARE ADV SELF PAY NO INSURANCE Member Subscriber Plan / Payer (Ef fective for All Dates) Name:Reynold Reyez Member ID:Not on file Relation to Subscriber:Not on file Name:REYNOLD REYEZ Subscriber ID:Not on file Address: [address] [place] [address] Payer ID:Not on file Group ID:Not on file Type:Self Pay Address: [place], [place] [employer] MED[employer]ARE ADV SELF PAY NO INSURANCE Member Subscriber Plan / Payer (Ef fective for All Dates) Name:Reynold Reyez Member ID:Not on file Relation to Subscriber:Not on file Name:DEREJEREYNOLD Subscriber ID:Not on file Address: [place] [address] Payer ID:Not on file Group ID:Not on file Type:Self Pay Address: [place], [place] [employer] MEDICARE ADV SELF PAY NO INSURANCE Member Subscriber Plan / Payer (Ef fective for All Dates) Name:EfrainharrisonReynold jalloh Member ID:Not on file Relation to Subscriber:Not on file Name:DEREJEBRENNENREYNOLD Subscriber ID:Not on file Address: [place] [address] Payer ID:Not on file Group ID:Not on file Type:Self Pay Address: [place], [place] Care Teams Publications Distribution Clerk Relationship Specialty Start Date End Date Roberto Saleem MD [address] [place] [address] PCP - General 12/25/10
--- OUTSIDE RECORDS SUMMARY | 2025-05-22 11:27 | XMS_ITS | Data Portability ---
Author Organization [place] [facility] [employer], Main Office Address [address] [place] [address] Assessment Encounter Date Assessment Date Assessment LastModified [...] DO Not Attach Compendium, Do Not Delete/merge, 18393 3 14:13:11 injection/a spiration joint/bursa (PROC) - in office procedure, administere d by provider 2022 023 [email or web address] In-Office Order, Internal Use Only DO Not Attach Compendium DO Not Attach Compendium, Do Not Delete/merge, [id number] 3 09:40:43 injection/a spiration joint/bursa (PROC) - in office procedure, administere d by provider 2022 023 [email or web address] In-Office Order, Internal Use Only DO Not Attach Compendium DO Not Attach Compendium, Do Not Delete/merge, [id number] 3 08:57:06 injection/a spiration joint/bursa (PROC) - in office procedure, administere d by provider 2022 023 [email or web address] In-Office Order, Internal Use Only DO Not Attach Compendium DO Not Attach Compendium, Do Not Delete/merge, [id number] 3 09:27:11 Surgeries None recorded. Imaging XR, knee 2022 023 [email or web address] [facility], [address], [place], [address], 3 10:00:08 XR, hand, 3 or more view 2022 023 [email or web address] [facility], [address], [place], [address], 3 09:55:58 Medication Orders bupivacaine HCl 0.5 % (5 mg/mL) injection solution 2022 023 [facility], [address] [facility] [address] [place] [address], [id number], 3 15:17:55 Kenalog 10 mg/mL suspension for injection 2022 023 [facility] #85030, [address] [place] [address], [id number], 3 15:17:55 Kenalog 10 mg/mL suspension for injection 2022 023 [facility]02693, [address] [place] [address], [id number], 3 09:55:28 ropivacaine (PF) 5 mg/mL (0.5 %) injection solution 2022 023 [facility] #17279, [address] [place] [address], [id number], 3 09:55:28 Kenalog 10 mg/mL suspension for injection 2022 023 [facility] #68187, [address] [place] [address], [id number], 3 09:07:20 ropivacaine (PF) 5 mg/mL (0.5 %) injection solution 2022 023 [email or web address] #52807, [address] [facility] [address] [place] [address], [id number], 3 09:07:20 Kenalog 10 mg/mL suspension for injection [address] [facility] #36235, [address] [facility] [address] [facility], [place], [place], [id number], 3 09:53:52 ropivacaine (PF) 5 mg/mL (0.5 %) injection solution [address] [facility] #09375, [address] [facility] [address] [place] [address], [id number], 3 09:53:52 Patient TargetsNo targets recorded. Patient InstructionsNo instructions recorded. Reason for Referral None Reported. Results Created Date Observation Date Name Description Value Unit Range Abnormal Flag Note LastModifiedBy Organization Detail LastModifiedTime 11/30/19 23 XR, foot, 3 or more view No observ ation record ed. [id number] [facility] [address], [place], [address], 12/30/2022 13:53:28 02/12/20 23 XR, hand, 3 or more view No observ ation record ed. [facility] [address], [address], 02/11/2023 09:52:08 07/08/20 23 XR, knee No observ ation record ed. [facility] [address], [address], 07/08/2023 09:55:03 Result Notes None recorded. Problems Name Problem SNOMED Code Status Onset Date Resolution Date Notes Provider Name and Address Organization Details Recorded Time Radiothera py follow-up 999246734 Active Not Available [facility] 3 13:51:57 Osteoarthr itis of hip 990583039 Active Not Available [facility] 3 13:51:58 Low back pain 306803438 Active Not Available [facility] 3 13:51:58 Current tear of medial cartilage AND/OR meniscus of knee Active Not Available [facility] 3 13:51:58 Knee pain Active Not Available [facility] 3 13:51:58 Osteoarthr itis 573782168 Active Not Available [facility] 3 13:51:58 Derangemen t of knee 24630330 Active Not Available [facility] 3 13:51:58 Knee pain Active 2019 Not Available [facility] 3 13:51:58 Trigger finger of right hand 3069193267823 9101 Active 2021 Not Available [facility] 3 13:51:57 Pain of left hand 9185719447643 03 Active 2021 Not Available [facility] 3 13:51:58 Pain of bilateral knee joints 8505664818251 04 Active 2021 Not Available [facility] 3 13:51:58 Localized, primary osteoarthr itis of the ankle and/or foot 129379283 Active 2022 Not Available [facility] 3 13:51:58 Localized, primary osteoarthr itis of the ankle and/or foot 937148068 Active 2022 Not Available [facility] 3 13:51:58 Pain in left foot 9495963289209 07 Active 2022 VIRGIE Rincon null, [place] [facility] [employer] [facility] 3 09:24:30 Acquired trigger finger of left ring finger 4898638842269 09 Active 2022 JOANNE Holbrook [address], [place], [address] , [facility] [employer] [facility] [employer] 09:51:01 Problem Notes None recorded. Procedures Surgical History Date Name Laterality Status Provider Name and Address Organization Details Recorded Time hip joint reconstruction completed Not Available [facility] 12/30/2022 13:51:43 Knee completed VIRGIE Rincon [place] [employer] [facility] [employer] [facility] [employer] 02/11/2023 09:23:41 Imaging Results None recorded. Procedure Notes None recorded. Medical Equipment None Reported. Allergies Allergen ID Allergen Name Allergen Category Reaction Reaction Severity Criticality Documentation Date Start Date Code Code System Note Provider Name and Address Organization Details Recorded Time 92429 morphine medicatio n itching Not available Not available 12/30/2022 7052 RxNorm Not Available [facility] 13:53:27 38506 Product containin g angiotens in-conver ting enzyme inhibitor (product) medicatio n cough Not available Not available 12/30/2022 29348 009 SNOMED Not Available [facility] 13:53:27 Medications Name Sig Start Date [...] mg by injectio n route. [address] [facility]: 0003-049 02-18 Not Available Not Available Not [...] the office by the doctor 03/25 completed NDC: 54154583 001 Not Available Not Available Not Available [...] administ ered by the provider 11/25 completed NDC: 0409-427 -17 Not Available Not Available Not Available Januvia [...] mg by injectio n route. [address] [facility] 69331-82 4- Not Available Not Available Not Available [...] Available Not Available No t Available Fluvirin 0456-1537 45 mcg (15 mcg x 3)/0.5 mL [...] Available Not Available Not Available Fluzone High-Dose 2014- (PF) 180 mcg/0.5 mL intramusc ular syringe 12/21 completed Not Available Not Available Not Available Fluzone High-Dose 1306-9512 (PF) 180 mcg/0.5 mL intramusc ular syringe [...] Updated DateTime 11/30/2022 39.7 kg/m2 180.34 cm 024930.83 g Not Available [facility] 12/30/2022 13:51:51 Date Recorded Body height Body mass index (BMI) Body weight Provider Name and Address Organization Details Last Updated DateTime 02/11/2023 180.34 cm 25.1 kg/m2 01224.63 g VIRGIE Rincon [employer] [facility] 02/11/2023 09:20:14 Date Recorded Body height Body mass index (BMI) Body weight Provider Name and Address Organization Details Last Updated DateTime 03/04/2023 180.34 cm 39.7 kg/m2 745673.83 g Jaimie Finch Mary [employer] 03/04/2023 08:55:37 Date Recorded Body height Body mass index (BMI) Body weight Provider Name and Address Organization Details Last Updated DateTime 07/08/2023 180.34 cm 39.7 kg/m2 348562.83 g KUN Barajas [employer] 07/08/2023 09:39:05 Date Recorded Body height Body mass index (BMI) Body weight Provider Name and Address Organization Details Last Updated DateTime 10/14/2023 180.34 cm 39.1 kg/m2 801346.86 g KUN Barajas [employer] 10/14/2023 14:08:11 Social History None recorded. Functional Status Question Answer Note LastModified by Organizat ion Details LastModified Time What is your level of alcohol consumption? Occasional [email or web address] Information not available 02/11/2023 Mental Status None recorded. Family History Relationship Description Onset Age of this Age Resolved Age Notes LastModified by Organization Details LastModified Time Father Family history of malignant neoplasm [email or web address] Not available 10/14 14:06:34 Father History of hypertension [email or web address] Not available 14:06:34 Father Kidney disease [email or web address] Not available 2022 09:23:18 Unspecified Relation Heart disease [id number] [id number] Not available 12/30/2022 13:51:44 Unspecified Relation Diabetes mellitus [email or web address] [id number] Not available 12/30/2022 13:51:44 Mother History of hypertension [email or web address] Not available 14:06:34 Medical History Condition Response BLINDNESS N KIDNEY STONES N MRSA N CARPAL TUNNEL SYNDROME N LUNG DISEASE/DISORDER N HISTORY OF DRUG ABUSE N RADIATION / CHEMOTHERAPY N COPD N SPORTS INJURY N ANKLE PAIN N BLOOD DISEASES N SCHIZOPHRENIA N SHINGLES N SHOULDER PAIN N DEPRESSION (INCLUDING POST ) N BOWEL PROBLEMS N STROKE/TIA N ULCERS N KNEE PAIN [...] HAVE YOU BEEN HOSPITALIZED OR SEEN IN [facility] IN THE PAST YEAR ? N BURSITIS [...] SNOMED-CT Code Diagnosis ICD10 Code Diagnosis Note [id number] JOANNE Holbrook [facility] [address] [facility] [address] [place], [place] [address] 03/25/2021 00:00:00 03/25/2021 16:09:26 [id number] Chadwick Ku MD [facility] [address] [facility] [address] [place] [address] 09/08/2021 00:00:00 09/08/2021 10:17:23 [id number] Chadwick Ku MD [facility] [address] [facility] [address] [place], [place] [address] 11/25/2021 00:00:00 11/25/2021 16:06:41 [id number] Chadwick Ku MD [facility] [address] [facility] [address] [place] [address] 01/07/2022 00:00:00 01/07/2022 14:47:48 [id number] Chadwick Ku MD [facility] [address] [place] [address] 04/28/2022 00:00:00 04/28/2022 17:04:01 [id number] Chadwick Ku MD [facility] [address] [facility] [address] [place], [place] [address] 08/11/2022 00:00:00 08/11/2022 15:35:35 [id number] Chadwick Ku MD [facility] [address] [place] [address] 11/30/2022 00:00:00 11/30/2022 09:53:23 [id number] Chadwick Ku MD [facility] 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 [place] [address] 03/04/2023 08:53:29 03/04/2023 09:03:57 Osteoarthritis 252755402 M17.0 Pain of bi lateral knee joints 2897558008 13263 M25.561 M25.562 Pain of left hand 241141 7368 20177 M79.642 Localized, primary osteoarthritis of the ankle and/or foot 042296210 M19.072 Pain in left foot 412586 6684 66433 M79.672 Acquired t rigger supervisor finger of left ring finger 9888273949 29215 M65.594 [id number] Chadwick Ku MD [facility] [address] [place] [address] 07/08/2023 09:36:52 07/08/2023 10:00:07 Pain of bilateral knee joints 3212797992 32870 M25.561 M25.562 Osteoarthritis 575826521 M17.0 [id number] JOANNE Holbrook [facility] [address] [place] [address] 10/14/2023 14:05:54 10/14/2023 14:48:05 Pain of bilateral knee joints 7818028261 32375 M25.561 M25.562 Osteoarthritis 711720026 M17.0 Health Concerns Section Related Observation LastModified by Organization Detai ls LastModified Time None Recorded Concern Status LastModified by Organization Details LastModified Time None Recorded Advance Directives Directive None Recorded Payers Insurance Date Sequence Insurance Name Policy Number Policy Hernandez Covered Member ID Hernandez Member ID Guarantor Name 10/21/2023 1 [employer] (MEDICARE REPLACEMENT/ ADVANTAGE - PPO) [id number] Reynold Machado [id number] Reynold Machado Notes Date Note Type Note Provider Name [...] today with the patient. JOANNE Holbrook [address] [facility], [facility] [address], [place], [address], [place] [facility] [employer] 02/11/2023 09:52:32 03/04/2023 text/html Patient returns complaining of bilateral knee pain right worse left. He has chronic advanced primary osteoarthritis with significant narrowing in the medial and patellofemoral compartments which are slfx-xo-pyoc. He gets by with cortisone injections it has been about 3 months since his last injections he would like to repeat these today they do work well for him allow to get out by golf etc.. Today denies any new symptoms no new trauma or injury to either knee. JOANNE Holbrook [address], [place], [address], [employer] [facility] [employer] 03/04/2023 09:09:40 07/08/2023 text/html Patient returns requesting bilateral knee injections. He comes in every few months it has been 4 months since his last injections. They gave him good relief. He has advanced chronic primary osteoarthritis with significant narrowing in the medial and patellofemoral compartments which are licw-al-fgwe. He is not interested in total knee arthroplasty at this time we have talked about it previously. Denies any new trauma injury no erythema heat effusion or signs of infection in either knee. JOANNE Holbrook [address], [place], [address], [employer] [facility] [employer] 07/08/2023 09:55:23 10/14/2023 text/html Patient returns for bilateral knee injections he has severe primary osteoarthritis in the patellofemoral articulations which are rgyi-uk-gcaj bilaterally and also in the right medial [...] time. JOANNE Holbrook [address], [place], [address], [employer] [facility] [employer] 10/14/2023 14:36:49
== END 2025-05-22 11:19 | disposition home or self-care (01) ==
LOC: ANHIMG 11:22
PROVIDERS: PCP Internal Medicine; Visit Provider Internal Medicine
DX: R91.1 Solitary pulmonary nodule (principal)
CPT/HCPCS: 71250

== ENCOUNTER 2025-06-14 09:06 | Outpatient (CLI) | payer MEDICARE, SELFPAY ==
--- NOTE | ~2025-06-14 | PE_ITS ---
EXAMINATION: PET skull to mid thigh DATE: 06/14/2025 10:57 INDICATION: Solitary pulmonary nodule TECHNIQUE: Blood glucose level was 129 mg/dL. 11.285 mCi of 18-fluorodeoxyglucose (18-FDG) was admini stered i.v. Low dose computed tomography (CT) images were acquired from the base of the brain to the proximal thighs for attenuation correction and anatomic localization. Positron emission tomography (P ET) images were acquired in the same distribution beginning 57 minutes after injection. Images includ ing fused PET/CT images were reconstructed in axial, coronal, and sagittal planes. Automated exposure control technique was employed. The dose-length product was 1325.99mGy-cm. COMPARISON: Chest CT dated 05/22/2025 and PET/CT dated 12/19/2023 FINDINGS: Head/neck: There is symmetric increased activity in the oral cavity, palatine tonsils and ocular muscles without CT correlate, likely physiologic. No pathologically enlarged cervical lymphadenopathy or suspicious foci of increased FDG uptake in the visualized head or neck. Chest: Previously seen patchy groundglass opacities at the posterior medial aspect of the apical segment of the right upper lobe have nearly resolved. There is a residual small groundglass opacity more caudall y along the posterior margin of the posterior segment of the right upper lobe which without abnormal FDG activity. No abnormal FDG uptake associated with the previously noted 1.6 x 1.3 similar part braxton d nodule at the lingula which has remained without significant interval change dating back to CT date d 07/16/2021 but which appears increased in size when compared with study dated 05/11/2019. No other miller spicious pulmonary nodules or pleural effusion. Mild cardiomegaly. A sclerotic coronary artery calcif ication. No pericardial effusion. Thoracic aorta is normal in caliber. No pathologically enlarged or FDG avid thoracic lymphadenopathy. Small sliding-type hiatal hernia. Abdomen/pelvis/proximal thighs: Physiologic renal accumulation and excretion of FDG activity in the kidneys, bladder and along portio ns of ureters. Photopenic defects associated with bilateral renal cysts the largest at the upper pole of the left kidney measuring up to 5.8 cm. Normal degree and heterogenous pattern of increased uptak e throughout the liver without radiologic correlate or dominant FDG avid lesion. The gallbladder, ruiz creas, spleen and bilateral adrenal glands are normal. Mild uptake scattered throughout the bowels wi thout radiologic correlate, also likely physiologic. Prominent diverticulosis without adjacent from t race stranding to suggest diverticulitis. Infrarenal aortobiiliac endoluminal stent grafting. There i s suggestion of prostatomegaly however the region of the prostate is obscured by dense metallic strea k artifact from bilateral total hip arthroplasties. No other abnormal foci of increased FDG uptake or pathologically enlarged lymphadenopathy in the abdomen, pelvis or proximal thighs. Musculoskeletal: Moderate cervical and thoracic and severe lumbar spondylosis. No suspicious lytic, blastic or abnorma lly FDG avid bone lesions. IMPRESSION: 1. No abnormal FDG activity associated with a 1.6 x 1.3 similar chronic part solid nodule at the ling jazmyn which has increased in size when compared with study from 2019. 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 If this would affect clinical management could consider CT-guided percutaneous biopsy fo r definitive determination. 2. Interval resolution of a patchy groundglass and solid nodular opacity posterior right apex which i s likely infectious/inflammatory in etiology. A second small region of groundglass opacity more cauda lly in the right upper lobe persists but without abnormal FDG activity also most likely infectious/in flammatory in etiology. Consider 3 month follow-up low-dose noncontrast chest CT. 3. No other FDG avid lesions in the neck, chest, abdomen or pelvis concerning for malignancy or metas tatic disease. Reviewed, dictated and finalized at location A. IMPRESSION: 1. No abnormal FDG activity associated with a 1.6 x 1.3 similar chronic part so lid nodule at the lingula which has increased in size when compared with study from 2019. 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 If this would affect clinical management could consider CT-guided percutaneous biopsy for definitive determination. 2. 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 A second sm all region of groundglass opacity more caudally in the right upper lobe persist s but without abnormal FDG activity also most likely infectious/inflammatory in etiology. Consider 3 month follow-up low-dose noncontrast chest CT. 3. No other FDG avid lesions in the neck, chest, abdomen or pelvis concerning f or malignancy or metastatic disease.
--- OUTSIDE RECORDS SUMMARY | 2025-06-14 09:17 | XMS_ITS | Clinical Summary ---
Author Organization [facility] Address [address] [place] [address] Care Team Providers Care Marketing Project Specialist Name Role Phone Roberto Saleem MD Primary Care Provider Source Comments [facility],non-[facility] Affiliates and Associated Physician Practices is amultiple site organization consisting of ambulatory clinics and hospital sitesin [place], [place], [place] and [place]. This disclosure is being madepursuant to the Care Everywhere program and may not contain all information available regarding this patient. Last updated 18.[facility] [employer] Social History Tobacco Use Types Packs/Day Years Used Date Smoking Tobacco: Never Assessed Sex and Gender Information Value Date Recorded Sex Assigned at Not on file Legal Sex Male 6:16 AM BUSINESS EDITOR Gender Identity Not on file Sexual Orientation Not on file Last Filed Vital Signs Vital Sign Reading Time Taken Comments Blood Pressure 152/80 11/09/2013 9:56 AM BUSINESS EDITOR Pulse 61 11/09/2013 9:56 AM BUSINESS EDITOR Temperature - - Respiratory Rate 18 11/09/2013 9:56 AM BUSINESS EDITOR Oxygen Saturation - - Inhaled Oxygen Concentration - - Weight 142.9 kg (315 lb) 11/09/2013 9:56 AM BUSINESS EDITOR Height - - Body Mass Index - [...] REYEZ Subscriber ID:Not on file Address: [address] [place] [address] Payer ID:Not on file Group ID:Not on file Type:Self Pay Address: [place], [place] [employer] AD[employer] SELF PAY NO INSURANCE Member Subscriber Plan / Payer (Ef fective for All Dates) Name:Reynold Reyez Member ID:Not on file Relation to Subscriber:Not on file Name:REYNOLD REYEZ Subscriber ID:Not on file Address: [place] [address] Payer ID:Not on file Group ID:Not on file Type:Self Pay Address: [place], [place] [employer] ADV SELF PAY NO INSURANCE Member Subscriber Plan / Payer (Ef fective for All Dates) Name:Reynold Reyez Member ID:Not on file Relation to Subscriber:Not on file Name:REYNOLD REYEZ Subscriber ID:Not on file Address: [address] [place] [address] Payer ID:Not on file Group ID:Not on file Type:Self Pay Address: [place], [place] [employer] SELF PAY NO INSURANCE Member Subscriber Plan / Payer (Ef fective for All Dates) Name:Reynold Reyez Member ID:Not on file Relation to Subscriber:Not on file Name:REYNOLD REYEZ Subscriber ID:Not on file Address: [address] [place] [address] Payer ID:Not on file Group ID:Not on file Type:Self Pay Address: [place], [place] [employer] S[employer]F PAY NO INSURANCE Member Subscriber Plan / Payer (Ef fective for All Dates) Name:Reynold Reyez Member ID:Not on file Relation to Subscriber:Not on file Name:DEREJEREYNOLD Subscriber ID:Not on file Address: [place] [address] Payer ID:Not on file Group ID:Not on file Type:Self Pay Address: [place], [place] [employer] AD[employer] SELF PAY NO INSURANCE Member Subscriber Plan / Payer (Ef fective for All Dates) Name:EfrainharrisonReynold jalloh Member ID:Not on file Relation to Subscriber:Not on file Name:DEREJEBRENNENREYNOLD Subscriber ID:Not on file Address: [place] [address] Payer ID:Not on file Group ID:Not on file Type:Self Pay Address: [place], [place] Care Teams Marketing Project Specialist Relationship Specialty Start Date End Date Roberto Saleem MD [address] [place] [address] PCP - General 12/25/10
--- OUTSIDE RECORDS SUMMARY | 2025-06-14 09:17 | XMS_ITS | Clinical Summary ---
Author Organization [facility] Office Center Address [address] [place] [address] Care Team Providers Care Box Office Attendant Name Role Phone Nomi Moore MD PhD Unavailable [phone] Roberto Saleem MD Primary Care Provider [phone] Spencer Fulton MD Unavailable [phone] Allergies Active Allergy Reactions Criticality Noted Date Comments Lisinopril Cough Low 10/21/2021 Morphine Itching Medium 10/21/2021 Oxycodone Mental status changes,Delusions Medium 04/2024 Medications hydroCHLOROthiazid e (HYDRODIURIL) 25 mg tablet Take 1 tablet (25 mg total) by mouth every morning Active levothyroxine (SYNTHROID) 100 mcg tablet Take 1 tablet (100 mcg total) by mouth manager human capital before breakfast Active carvedilol (COREG) 25 mg [...] tablet by mouth every morning Active omega 6-pvn-uiy-fish oil 1,000 mg (120 mg-180 mg) capsule Take 1 capsule (1,000 mg total) by mouth daily with dinner Active OneTouch Verio test strips strip USE TO TEST BLOOD SUGAR TID 08/31/20 Active Xigduo XR 10-1,000 mg tablet, IR & ER, biphasic 24hr Take 1 tablet by mouth every morning 07/23/20 Active LORazepam (ATIVAN) 1 mg tablet Take 1 tablet (1 mg total) by mouth 2 (two) times a day at bedtime 09/21/20 Active metFORMIN (GLUCOPHAGE) 500 mg tablet Take 1 tablet (500 mg total) by mouth daily with dinner 07/28/20 Active vibegron (Gemtesa) 75 mg tablet Take 75 mg by mouth every morning Active atorvastatin (LIPITOR) 80 mg tablet Take 0.5 tablets (40 mg total) by mouth every morning Active celecoxib (CeleBREX) 200 mg capsule Take 1 capsule (200 mg total) by mouth 2 (two) times a day 60 capsule 1 10/06/20 24 Active aspirin 81 mg enteric coated tablet Take 1 tablet (81 mg total) by mouth 2 (two) times a day 10/06/20 24 Active glimepiride (AMARYL) 2 mg tabletIndications: type 2 diabetes mellitus Take 0.5 tablets (1 mg total) by mouth daily before breakfast 025 Discontin ued(Thera py completed ) ondansetron ODT (ZOFRAN-ODT) 4 mg disintegrating tablet Take 1 tablet (4 mg total) by mouth every 8 (eight) hours as needed for nausea or vomiting 20 tablet 1 10/06/20 24 025 Discontin ued(Thera py completed ) cyclobenzaprine (FLEXERIL) 10 mg tablet Take 1 tablet (10 mg total) by mouth 3 (three) times a day as needed for muscle spasms 07/30/2 025 Discontin ued(Thera py completed ) Active Problems Problem Noted Date Diagnosed Date [...] 09/27/2018 Assessment & Plan (10/20/2022 1:03 PM TECHNICAL CLERK): Patient seen today for 1 year routine [...] artery disease 11/01/2004 Overview (10/31/2019): stent placed [facility] by Dr. Tompkins Encounters Date Type Department Care Team Description 05/30/2025 10:15 AM CDT Office Visit [facility] Card[facility] [address] [place] [address] Ab Mo MD Coronary artery disease involving kashia coronary artery of kashia heart without angina pectoris (Primary Dx); S/P angioplasty with stent; Chronic diastolic congestive heart failure (HCC); First degree AV block; Status post endovascular aneurysm repair (EVAR); Hypertension associated with type 2 diabetes mellitus (HCC); History of tobacco abuse; Lipid screening from Last 3 Months Immunizations Immunization Administration [...] TOTAL HIP ARTHROPLASTY 11/01/2009 - 10/31/2010 Right BRAIN SURGERY 02/12/13 LASIK 2016 JOINT REPLACEMENT right hip 11/19/06, left hip 11/08/2012, right knee 01/20/2024, left knee 10/06/2024 PROSTATE SURGERY green light laser 10/30/2010, turp 05/23/2019, turp 02/10/2022 CATARACT EXTRACTION 11/04/15 KNEE ARTHROSCOPY W/ LATERAL RELEASE 07/20/2018 Medical History Medical History Date Comments DM (diabetes mellitus) HTN (hypertension) Thyroid disease Arthritis 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 Tompkins Cataract Hyperlipidemia Gout Sleep apnea Osteoarthritis of right knee TIA (transient ischemic attack) Hypothyroid Obesity (BMI 30-39.9) Bladder cancer (HCC) Primary osteoarthritis of left knee Heart disease 2006 Family History Medical History Relation Name Comments Arthritis Father Diabetes Father Heart disease Father Heart disease Mother Cancer Other Diabetes Other Hypertension Other Relation Name Status Comments Father Mother Other Social History Tobacco Use Types Packs/Day Years Used Date Smoking Tobacco: Former Cigarettes Q uit: 2005 Smokeless Tobacco: Never Alcohol Use Standard Drinks/Week Comments Yes 21 [...] on file Legal Sex Male 12:37 PM TECHNICAL CLERK Gender Identity Male 02/02/2022 11:05 AM CDT Sexual Orientation Straight 02/02/2022 11 :05 AM CDT Obstetrics History Last Filed Vital Signs Vital Sign Reading Time Taken Comments Blood Pressure 148/68 05/30/2025 10:17 AM CDT Pulse 72 05/30/2025 10:17 AM CDT Temperature 36.6 C (97.9 F) 10/07/2024 8:35 AM TECHNICAL CLERK Respiratory Rate 18 10/07/2024 8:35 AM TECHNICAL CLERK Oxygen Saturation 96% 05/30/2025 10:17 AM CDT Inhaled Oxygen Concentration - - Weight 122.9 kg (271 lb) 05/30/2025 10:17 AM CDT Height 177.8 cm (5' 10) 05/30/2025 10:17 AM CDT Body Mass Index 38.88 05/30/2025 10:17 AM CDT Plan of Treatment Health Maintenance Due Date Last Done Comments Albumin Creatinine Ratio, Urine 1942 Depression Screening 1942 Dilated Eye Exam 1942 Foot Exam 1942 DTaP/Tdap/Td Vaccine (1 - Tdap) 1953 Hepatitis B Screening 1960 Well Visit 65+ 2007 Covid-19 Vaccine (4 - 2023-2 5 season) 2024 07/30/2021, 01/09/2021, 12/19/2020 Hemoglobin A1C 02/22/2025 08/24/2024, 10/01, 10/31/2019 Influenza Vaccine (#1) 2025 , 07/12/2021, 06/27/2020, Additional history exists eGFR 08/24/2025 08/24/2024, 12/31, 01/10/2024, Additional history exists Fall Risk Assessment 10/07/2025 10/07/2024 Lipid Panel 05/30/2026 05/30/2025, 11/2019, 10/31/2019 Zoster Vaccine Completed 08/17/2019, 07/02, 05/03/2019 Pneumococcal vaccine 65+ Completed 023, 08/05/2018, 10/01/2009 Medical Devices Implanted Type Area Electrical Appliance Repairer Device Identifier Shelf Expiration Date Model / Serial / Lot Total Hip Bilatera l: Hip [employer] Triathlon Tritanium Knee 7 Baseplate Tibial 5536-B-700 - [id number] Implanted:Qty: 1 on 01/20/2024 by Spencer Fulton MD at [facility] Right: Knee [employer] [id number] 09/27/2028 5536-B-70 0 / / [id number] [employer] Triathlon Cruciate Retain Bead Knee Right 7 Component Femoral Pa 5517-F-702 - [id number] Implanted:Qty: 1 on 01/20/2024 by Spencer Fulton MD at [facility] Right: Knee [employer] [id number] 11/04/2027 5517-F-70 2 / / [id number] [employer] Tritanium 38mm 11mm Asymmetric Knee Component Patellar Metal 5552-L-381 - [id number] Implanted:Qty: 1 on 01/20/2024 by Spencer Fulton MD at [facility] Right: Knee [employer] [id number] 12/11/2025 5552-L-38 1 / / [id number] [employer] Insert Tibial Triathlon 7 H9mm Knee Bearing Condylar Stabilize Sterile 5700-O-591-E - [id number] Implanted:Qty: 1 on 01/20/2024 by Spencer Fulton MD at [facility] Right: Knee [employer] [id number] 08/14/2028 5531-G-70 9-E / / [id number] [employer] Tritanium 38mm 11mm Asymmetric Knee Component Patellar Metal 5552-L-381 - [id number] Implanted:Qty: 1 on 10/06/2024 by Spencer Fulton MD at [facility] Left: Knee [employer] [id number] 07/16/2029 5552-L-38 1 / / [id number] [employer] Triathlon Cruciate Retain Bead Knee Left 8 Component Femoral Pa 5517-F-801 - [id number] Implanted:Qty: 1 on 10/06/2024 by Spencer Fulton MD at [facility] Left: Knee [employer] [id number] 07/15/2027 5517-F-80 1 / / [id number] [employer] Insert Tibial Triathlon 7 H10mm Knee Bearing Condylar Stabilize Sterile 8074-J-290-E - [id number] Implanted:Qty: 1 on 10/06/2024 by Spencer Fulton MD at [facility] Left: Knee [employer] [id number] 05/18/2029 5531-G-71 0-E / / [id number] [employer] Triathlon Tritanium Knee 7 Baseplate Tibial 5536-B-700 - [id number] Implanted:Qty: 1 on 10/06/2024 by Spencer Fulton MD at [facility] Left: Knee [employer] [id number] 07/27/2029 5536-B-70 0 / / [id number] Procedures Procedure Name Priority Date/Time Associated Diagnosis Comments ECG 12-LEAD Routine 05/30/2025 10:29 AM CDT Chronic diastolic congestive heart failure (HCC) POCT LIPID PANEL Routine 05/30/2025 10:2 8 AM CDT Lipid screening EGFR Routine 08/24/2024 11:09 AM CDT Preop testing HEMOGLOBIN A1C Routine 08/24/2024 11:09 AM CDT Preop testing from Last 3 Months or Most Recently Relevant to Health Maintenance Results * ECG 12 lead (05/30/2025 10:29 AM CDT) 05/30/2025 10:2 9 AM CDT us Ab Mo MD ECG ORDERABLES Edited Result - Final * POCT lipid panel (05/30/2025 10:28 AM CDT) Cholesterol, POC 131 <200 MG/DL HDL, POC 45 >=40 mg/dL Triglycerides, POC 95 <=149 mg/dL LDL Cholesterol POC 67 <=129 mg/dL Chol/HDL Ratio, POC 1.5 NONE Non-HDL Cholesterol, POC 86 NONE mg/dL Cholesterol Total, POC 131 30 - 199 mg/dL Capillary blood 05/30/2025 1 0:28 AM CDT us Ab Mo MD POINT OF CARE TEST ORDERABLES Fi nal Result * eGFR (08/24/2024 11:09 AM CDT) eGFR [...] RUBIO LAB BLOOD ORDERABLES Fin al Result [facility] [address] Department [place] [address] * (ABNORMAL) Hemoglobin A1c (08/24/2024 11:09 AM CDT) Hgb A1C 7.0(H) 4.0 - 5.6 % Estimated Average Glucose 154 mg/dL [facility] Comment: The ADA recommends reporting an estimated Average Glucose (eAG) with all Hemoglobin A1c results using the equation derived from a study of 507 normal and diabetic adults. Minority populations were underrepresented and children were not included. (Diabetes Care 31:0208-5778, 2008). The eAG is not equivalent to a fasting glucose. Blood 08/24/2024 11:0 9 AM CDT 08/24/2024 11:09 AM CDT us Tabby RUBIO LAB BLOOD ORDERABLES Fin al Result [facility] [address] Department [place] [address] from Last 3 Months or Most Recently Relevant to Health Maintenance Insurance [facility] MEDICARE ADVANTAGE [facility] MEDIC[facility] Address: [facility] [address] [place] [address] [facility] MEDICARE [facility] Address: [facility] [address] [place] [address] [facility] MEDICARE UHC MEDICARE ADVANTAGE [facility] MEDIC[facility] Address: [address] [address] [place] [address] Advance Directives For more information, please contact: [phone] Documents on File Type Date Recorded Patient Broker Assistant Expl anation ADVANCE DIRECTIVE 01/25/2024 2:02 AM POWER OF RELATIONS DIRECTOR-MEDICAL * Full Code (Latest Code Status on File) Date Activated Date Inactivated Comments 10/06/2024 6:40 PM 10/07/2024 3:38 PM * Full Code Date Activated Date Inactivated Comments 01/20/2024 12:53 PM 01/21/2024 4:25 PM * Full Code Date Activated Date Inactivated Comments 10/31/2019 7:01 PM 11/01/2019 6:11 PM Care Teams Box Office Attendant Relationship Specialty Start Date End Date Roberto Saleem MD [address] [place] [address] PCP - General 10/31/19 Nomi Moore MD PhD [address] [facility] [address] [place] [address] Consulting Physician Neurology 11/01/19 Spencer Fulton MD [address] [facility] [address] [place] [address] Consulting Physician Orthopedic Surgery 10/26/23
--- OUTSIDE RECORDS SUMMARY | 2025-06-14 09:17 | XMS_ITS | Clinical Summary ---
Author Organization [facility] Address [address] [place] [address] Care Team Providers Care Consulting Networking Engineer Name Role Phone Roberto Saleem MD Primary Care Provider [phone] Allergies Active Allergy Reactions Criticality Noted Date [...] Gel AndroGel Active Lancets (ONETOUCH DELICA PLUS [id number]) [facility] OneTouch Delica Plus Lancet 30 gauge Active Blood Glucose Monitoring Suppl (ONETOUCH PING METER REMOTE) Supplies [facility] OneYurbuds Verio Flex Meter Active betamethasone dipropionate 0.05 [...] Type Department Care Team Description 05/15/[address] [facility] [place] [address] [phone] Amirah Page RN Postprocedure Call 05/15/[address] [facility] [place] [address] [id number] Kenzie Chen CNP from Last 3 Months Family History Medical [...] Department Care Team (Latest Contact Info) Description 06/22/2025 9:00 AM CDT [facility] [address] [place] [address] Jeanie Trujillo MD [address] [place] [address] 07/09/2025 1:20 PM CDT Hospital Encounter [facility] [place] [address] [phone] Dona Rodriguez MD [address] [facility] [address] [place] [address] 07/09/2025 1:20 PM CDT - 07/09/2025 1:[address] [facility] [place] [address] [phone] Dona Rodriguez MD Three [facility] [address] [place] [address] INJECTION EPIDURAL TRANSFORAMINAL-L5- S1 Scheduled Procedures Name Priority Associated Diagnoses Date/Ti me INJECTION EPIDURAL TRANSFORAMINAL Lumbar radiculopathy 07/09/2025 1:20 PM CDT Health Maintenance Due Date Last Done Comments Kidney Health Evaluation 1942 Lipid Panel 1942 Diabetes: Retinopathy Eye Exam 1960 DTaP, Tdap and Td Vaccines (1 - Tdap) 1961 Annual Medicare Wellness Visit 2007 RSV Immunization or 60+ Years (1 - 1-dose 75+ series) 2017 Hemoglobin A1C 04/19/2024 10/19/2023, 10/31/2019 COVID-19 Vaccine (2023- season) 2024 03/12/2022, 07/30/2021, 01/09/2021, Additional history [...] kaylynn Goal Care Plan Autogenerated Problem No [place], Amirah C, RN Additional Health Concerns Active Problems Noted Date Diagnosed Date Autogenerated Problem 05/15/2025 Insurance [employer] Care Teams Consulting Networking Engineer Relationship Specialty Start Date End Date Roberto Saleem MD [address] [place] [address] PCP - General INTERNAL MEDICINE 02/17/22
== END 2025-06-14 09:07 | disposition home or self-care (01) ==
PROVIDERS: PCP Internal Medicine; Visit Provider Internal Medicine
DX: R91.1 Solitary pulmonary nodule (principal)
CPT/HCPCS: 78815; A9552

== ENCOUNTER 2025-08-14 18:43 | Observation (INO) | payer MEDICARE, SELFPAY ==
[2025-08-14] VITALS (7 sets, daily range): BP systolic 131–154; BP diastolic 64–77; PULSE 61–74; RESP 14–21; TEMP 36.7; O2SAT 96–99
--- NOTE | ~2025-08-14 | XR_ITS ---
XR chest 2V HOSTORY: left arm pain COMPARISON:[ None] FINDINGS: Frontal and lateral views of the chest were obtained. The lungs are clear. The heart size is normal in size. Pulmonary vasculature is unremarkable. Osseous structures are intact. IMPRESSION: No acute lung findings.] [ ] Reviewed, dictated and finalized at location S.
--- NOTE | 2025-08-14 18:56 | ECG_ITS ---
Test Date: 2025-08-14 19:01:20 Measurements Intervals Gaston Rate: 68 P: 16 SD: 209 QRS: -30 QRSD: 103 T: 29 QT: 402 QTc: 428 Interpretive Statements SINUS RHYTHM WITH FRIST DEGREE AV BLOCK INFERIOR INFARCT, AGE INDETERMINATE CONSIDER ANTERIOR INFARCT, AGE INDETERMINATE ABNORMAL ECG Compared to ECG 03/02/2025 11:47:47 NO SIGNIFICANT CHANGE Electronically Signed On 08-14-2025 19:29:01 CDT by Alfredo Contreras D.O.
[2025-08-14 19:13] LABS: Hematocrit 43.4 % (42.0-52.0); Hemoglobin 14.6 g/dL (14.0-18.0); Immature Granulocyte Percent A 0.6 % (0-0.5); Lymphocytes Absolute Auto 1.25 K/mm3 (0.9-3.2); Mean Corpuscular HGB Conc 33.6 g/dl (32-36); Mean Corpuscular Hemoglobin 31.1 pg (26-34); Mean Corpuscular Volume 92.3 fl (80-100); Nucleated Red Blood Cells Absolute Auto 0.000 K/mm3 (0.0-0.012); Nucleated Red Blood Cells Perc 0.0 % (0.0-0.2); Platelet Count Result 141 k/mm3 (150-375); Red Blood Count 4.70 M/mm3 (4.6-6.20); White Blood Count 6.9 K/mm3 (4.5-10.0)
[2025-08-14 19:25] LABS: Alanine Aminotransferase 40 U/L (6-50); Albumin Level 4.4 g/dL (3.5-5.1); Alkaline Phosphatase 93 U/L (38-126); Anion Gap 8 mmol/L (4-12); Aspartate Amino Transferase 38 U/L (17-59); Bilirubin,Total 0.6 mg/dL (0.2-1.3); Blood Urea Nitrogen 18 mg/dL (9-20); Calcium 10.1 mg/dL (8.4-10.2); Carbon Dioxide 26 mmol/L (22-30); Chloride 102 mmol/L (98-107); Estimated CRCL calculation 67 ml/min; Estimated Glomerular Filt Rate > 60; Glucose 140 mg/dL (65-110); Lipase 160 U/L (23-300); Magnesium 1.9 mg/dL (1.6-2.3); Potassium 4.2 mmol/L (3.4-5.0); Sodium 136 mmol/L (137-145); Total Protein 7.6 g/dL (6.3-8.2)
[2025-08-14 19:26] LABS: INR 1.1; Prothrombin Time 13.7 Seconds (11.1-14.7)
[2025-08-14 19:27] LABS: Partial Thromboplastin Time 30.6 Seconds (22.3-36.8)
[2025-08-14 19:42] LABS: Troponin I 0.039 ng/mL (0.000-0.034)
[2025-08-14] MEDS: ASPIRIN 81 MG CHEWABLE TABLET 324 MG PO (19:50)
--- OUTSIDE RECORDS SUMMARY | 2025-08-14 20:02 | XMS_ITS | Clinical Summary ---
Author Organization [facility] at [facility] Address [address] [place] [address] Care Team Providers Care Press Tender Smoke Signal Name Role Phone Nomi Moore MD PhD Unavailable [phone] Roberto Saleem MD Primary Care Provider [phone] Spencer Fulton MD Unavailable [phone] Allergies Active Allergy Reactions Criticality Noted Date Comments Lisinopril Cough Low 10/21/2021 Morphine Itching Medium 10/21/2021 Oxycodone Mental status changes,Delusions Medium 04/2024 Medications hydroCHLOROthia zide (HYDRODIURIL) 25 mg tablet Take 1 tablet (25 mg total) by mouth every morning Active levothyroxine (SYNTHROID) 100 mcg tablet Take 1 tablet (100 mcg total) by mouth plastic boat buffer before breakfast Active carvedilol (COREG) 25 mg [...] every morning Active linaGLIPtin (TRADJENTA) 5 mg tabletIndicatio ns:type 2 diabetes mellitus Take 1 tablet (5 mg total) by mouth every morning Active amLODIPine (NORVASC) 10 mg tablet Take 0.5-1 tablets (5-10 mg total) by mouth 2 (two) times a day 10 mg in the am, 5 mg HS Active allopurinol (ZYLOPRIM) 300 mg tablet Take 1 tablet (300 mg total) by mouth every morning Active multivitamin tabletIndicatio ns:Vitamin Deficiency Prevention Take 1 tablet by mouth every morning Active omega 2-mtj-kmr-fish oil 1,000 mg (120 mg-180 mg) capsule [...] a day 60 capsule 1 4 Active aspirin 81 mg enteric coated tablet [...] 09/27/2018 Assessment & Plan (10/20/2022 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 Infrarenal abdominal aortic aneurysm (AAA) witho ut rupture 08/20/2016 Subdural hematoma 11/01/2012 Coronary artery disease 11/01/2004 Overview (10/31/2019): stent placed [facility]evier[facility] by Dr. Tompkins Encounters Date Type Department Care Team Description 07/12/2025 8:45 AM CDT Office Visit [facility] Vascular and Vein Surgery [facility] [address] [place] [address] Benita Mcgovern PA Infrarenal abdominal aortic aneurysm (AAA) without rupture (Primary Dx); Hypertension, unspecified type; Type 2 diabetes mellitus with other specified complication, without long-term current use of insulin 07/12/2025 7:42 AM CDT - 07/12/2025 11:59 PM CDT Hospital Encounter [facility] [address] [place] [address] [address] [place] [address] Infrarenal abdominal aortic aneurysm (AAA) without rupture Discharge Disposition: Discharge to home or self care 05/30/2025 10:15 AM CDT Office Visit [facility] Cardiology [address] [place] [address] Ab Mo MD Coronary artery disease involving naknek coronary artery of naknek heart without angina pectoris (Primary Dx); S/P [...] 11/01/2009 - 10/31/2010 Right BRAIN SURGERY 02/12/13 VON 2016 JOINT REPLACEMENT right hip 11/19/06, left [...] Coronary artery disease [address] aced Bevier's by Dr. Tompkins Cataract Hyperlipidemia Gout Sleep [...] Cigarettes Q uit: 2004 Smokeless Tobacco: Never Alcohol Use Standard Drinks/Week [...] on file Legal Sex Male 12:37 PM BANK RUNNER Gender Identity Male 02/02/2022 11:05 AM CDT Sexual Orientation Straight 02/02/2022 11 :05 AM CDT Obstetrics History Last Filed Vital Signs Vital Sign Reading Time Taken Comments Blood Pressure 164/70 07/12/2025 8:39 AM CDT Pulse 69 07/12/2025 8:39 AM CDT Temperature 36.6 C (97.9 F) 10/07/2024 8:35 AM BANK RUNNER Respiratory Rate 18 10/07/2024 8:35 AM BANK RUNNER Oxygen Saturation 96% 05/30/2025 10:17 AM CDT Inhaled Oxygen Concentration - - Weight 122.9 kg (271 lb) 07/12/2025 8:39 AM CDT Height 177.8 cm (5' 10) 07/12/2025 8:39 AM CDT Body Mass Index 38.88 07/12/2025 8:39 AM CDT Plan of Treatment Health Maintenance Due Date Last Done Comments Albumin Creatinine Ratio, Urine 1940 Depression Screening 1940 Dilated Eye Exam 1942 Foot Exam 1940 Hepatitis B Screening 1960 Well Visit 65+ 2007 Hemoglobin A1C 02/22/2025 08/24/2024, 10/01, 10/31/2019 Covid-19 Vaccine (2024-2 6 season) 2025 07/22/2023, 03/12/2022, 07/30/2021, Additional history exists Influenza Vaccine (#1) 2025 , 07/22/2023, 07/02/2023, Additional history exists eGFR 08/24/2025 08/24/2024, 12/31, 01/10/2024, Additional history exists Fall Risk Assessment 10/07/2025 10/07/2024 Lipid Panel 05/30/2026 05/30/2025, 11/2019, 10/31/2019 DTaP/Tdap/Td Vaccine (2 - Td or Tdap) 04/23/2030 04/23/2020 Zoster Vaccine Completed 08/17/2019, 07/02, 05/03/2019 Pneumococcal vaccine 65+ Completed 023, 08/05/2018, 10/01/2009 Medical Devices Implanted Type Area Theater Education Teacher Device Identifier Shelf Expiration Date Model / Serial / Lot Total Hip Bilatera l: Hip [employer] Triathlon Tritanium Knee 7 Baseplate Tibial 5536-B-700 - [id number] Implanted:Qty: 1 on 01/20/2024 by Spencer Fulton MD at [facility] Right: Knee [employer] [id number] 09/27/2028 5536-B-70 0 / / [id number] [employer] Triathlon Cruciate Retain Bead Knee Right 7 Component Femoral Pa 5517-F-702 - [id number] Implanted:Qty: 1 on 01/20/2024 by Spencer Fulton MD at [facility] Right: Knee [employer] [id number] 11/04/2027 5517-F-70 2 / / [id number] [employer] Tritanium 38mm 11mm Asymmetric Knee Component Patellar Metal 5552-L-381 - [id number] Implanted:Qty: 1 on 01/20/2024 by Spencer Fulton MD at [facility] Right: Knee [employer] [id number] 12/11/2025 5552-L-38 1 / / [id number] [employer] Insert Tibial Triathlon 7 H9mm Knee Bearing Condylar Stabilize Sterile 9724-S-754-E - [id number] Implanted:Qty: 1 on 01/20/2024 by Spencer Fulton MD at [facility] Right: Knee [employer] [id number] 08/14/2028 5531-G-70 9-E / / [id number] [employer] Tritanium 38mm 11mm Asymmetric Knee Component Patellar Metal 5552-L-381 - [id number] Implanted:Qty: 1 on 10/06/2024 by Spencer Fulton MD at [facility] Left: Knee [employer] [id number] 07/16/2029 5552-L-38 1 / / [id number] [employer] Triathlon Cruciate Retain Bead Knee Left 8 Component Femoral Pa 5517-F-801 - [id number] Implanted:Qty: 1 on 10/06/2024 by Spencer Fulton MD at [facility] Left: Knee [employer] [id number] 07/15/2027 5517-F-80 1 / / [id number] [employer] Insert Tibial Triathlon 7 H10mm Knee Bearing Condylar Stabilize Sterile 7785-M-694-E - [id number] Implanted:Qty: 1 on 10/06/2024 by Spencer Fulton MD at [facility] Left: Knee [employer] [id number] 05/18/2029 5531-G-71 0-E / / [id number] [employer] Triathlon Tritanium Knee 7 Baseplate Tibial 5536-B-700 - [id number] Implanted:Qty: 1 on 10/06/2024 by Spencer Fulton MD at [facility] Left: Knee [employer] [id number] 07/27/2029 5536-B-70 0 / / [id number] Procedures Procedure Name Priority Date/Time Associated Diagnosis Comments US DUPLEX SCAN OF AORTA: INFERIOR VENA CAVA, ILIAC, COMPLETE Routine 07/12/2025 8:41 AM CDT Infrarenal abdominal aortic aneurysm (AAA) without rupture ECG 12-LEAD Routine 05/30/2025 10:29 AM CDT Chronic diastolic congestive heart failure (HCC) POCT LIPID PANEL Routine 05/30/2025 10:2 8 AM CDT Lipid screening EGFR Routine 08/24/2024 11:09 AM CDT Preop testing HEMOGLOBIN A1C Routine 08/24/2024 11:09 AM CDT Preop testing from Last 3 Months or Most Recently Relevant to Health Maintenance Results * US Duplex Scan of Aorta; Inferior Vena Cava, Iliac, Complete (07/12/2025 8:41 AM CDT) Anatomical Region Laterality Modality Vascular Ultrasound 07/12/2025 8:10 AM CDT Narrative 07/14/2025 10:40 AM CDT Abdominal Aortic Duplex Ultrasound Report Patient Name: REYNOLD REYEZ P : 1940 Study Date: 07/12/2025 8:10:53 AM Gender: M Registered Medical Assistant: Dewayne Provider: TED ENRIQUE Quality: Adequate Order Provider: TED ENRIQUE PROCEDURES: Arterial Report: Abdominal Aorta Stent Graft Duplex. INDICATIONS: I71.43 Infrarenal abdominal aortic aneurysm, without rupture. HISTORY: Endovascular aneurysm repair 06/25/11. COMPARISONS: The previous exam was completed on 10/20/22. Compared to prior the aneurysm sac has decreased from 3.6cm to 3.0cm. MEASUREMENTS: Vessel Velocities Vessel Diameters Aorta Prx PSV 58.44 cm/sec Aorta Prx AP Dim 2.51 cm Aorta Prx Trans Dim 2.7 x 3.0 cm AAA Sac Trans Dim 3.0 X 3.0 cm STENTS: Vessel Velocity Location EVAR RT LIMB Stent Prx PSV 102.00 cm/sec Stent Dst PSV 147.00 cm/sec Location 2 EVAR LT LIMB Stent 2 Prx PSV 42.00 cm/sec Stent 2 Dst PSV 80.00 cm/sec FINDINGS: Study Quality: Technically difficult due to body habitus and bowel gas. Abdominal Aorta: Infrarenal abdominal aortic aneurysm measurin.0 x 3.0 cm. Flow velocities and spectral waveforms are within normal limits. Compared to the prior study, the aneurysm sac has decreased in size. 2D and color Doppler demonstrate no evidence of endoleak. Stent: Stent is located in the abdominal aortic aneurysm. Patent stent with no evidence of stenosis. CONCLUSIONS: 1. Stent graft in good position and patent. No evidence of endoleak. Aneurysm sac size stable with 3 cm. ATTESTATION: I have reviewed and interpreted the pertinent images and measurements of this study. I attest to the conclusions in the final report that is provided above. Electronically Signed By: Ted Enrique MD 07/14/2025 10:30:51 AM CDT Procedure Note Ted Enrique MD - 07/14/2025 Abdominal Aortic Duplex Ultrasound Report Patient Name: REYNOLD REYEZ P : 1940 Study Date: 07/12/2025 8:10:53 AM Gender: M Registered Medical Assistant: Dewayne Provider: TED ENRIQUE Quality: Adequate Order Provider: TED ENRIQUE PROCEDURES: Arterial Report: Abdominal Aorta Stent Graft Duplex. INDICATIONS: I71.43 Infrarenal abdominal aortic aneurysm, without rupture. HISTORY: Endovascular aneurysm repair 06/25/11. COMPARISONS: The previous exam was completed on 10/20/22. Compared to prior the aneurysm sac has decreased from 3.6cm to 3.0cm. MEASUREMENTS: Vessel Velocities Vessel Diameters Aorta Prx PSV 58.44 cm/sec Aorta Prx AP Dim 2.51 cm Aorta Prx Trans Dim 2.7 x 3.0 cm AAA Sac Trans Dim 3.0 X 3.0 cm STENTS: Vessel Velocity Location EVAR RT LIMB Stent Prx PSV 102.00 cm/sec Stent Dst PSV 147.00 cm/sec Location 2 EVAR LT LIMB Stent 2 Prx PSV 42.00 cm/sec Stent 2 Dst PSV 80.00 cm/sec FINDINGS: Study Quality: Technically difficult due to body habitus and bowel gas. Abdominal Aorta: Infrarenal abdominal aortic aneurysm measurin.0 x 3.0 cm. Flowvelocities and spectral waveforms are within normal limits. Compared to the prior study,the aneurysm sac has decreased in size. 2D and color Doppler demonstrate no evidence ofendoleak. Stent: Stent is located in the abdominal aortic aneurysm. Patent stent with noevidence of stenosis. CONCLUSIONS: 1. Stent graft in good position and patent. No evidence of endoleak.Aneurysm sac size stable with 3 cm. ATTESTATION: I have reviewed and interpreted the pertinent images and measurements ofthis study. I attest to the conclusions in the final report that is provided above. Electronically Signed By: Ted Enrique MD 07/14/2025 10:30:51 AM CDT Ted Enrique MD IMG US PROCEDURES Final Re sult * ECG 12 lead (05/30/2025 10:29 AM CDT) 05/30/2025 10:2 9 AM CDT Result [facility] us Ab Mo MD ECG ORDERABLES Edited [...] Capillary blood 05/30/2025 1 0:28 AM CDT Result [facility] Ab Mo MD POINT OF CARE TEST [...] RUBIO LAB BLOOD ORDERABLES Fin al Result [facility] [address] Department [place] [address] * (ABNORMAL) Hemoglobin A1c (08/24/2024 11:09 AM CDT) Hgb A1C 7.0(H) 4.0 - 5.6 % Estimated Average Glucose 154 mg/dL [facility] Comment: The ADA recommends reporting an estimated Average Glucose (eAG) with all Hemoglobin A1c results using the equation derived from a study of 507 normal and diabetic adults. Minority populations were underrepresented and children were not included. (Diabetes Care 31:9803-0900, 2008). The eAG is not equivalent to a fasting glucose. Blood 08/24/2024 11:0 9 AM CDT 08/24/2024 11:09 AM CDT Tabby RUBIO LAB BLOOD ORDERABLES Fin al Result [facility] [address] Department [place] [address] from Last 3 Months or Most Recently Relevant to Health Maintenance Insurance [facility] MEDICARE ADVANTAGE [facility] MEDICARE [facility] MEDICARE UHC MEDICARE [facility] Address: [address] [place] [address] Advance Directives For more information, please contact: [phone] Documents on File Type Date Recorded 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 ADVANCE DIRECTIVE 01/25/2024 2:02 AM 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 [employer]ICAL * Full Code (Latest Code Status on File) Date Activated Date Inactivated Comments 10/06/2024 6:40 PM 10/07/2024 3:38 PM * Full Code Date Activated Date Inactivated Comments 01/20/2024 12:53 PM 01/21/2024 4:25 PM * Full Code Date Activated Date Inactivated Comments 10/31/2019 7:01 PM 11/01/2019 6:11 PM Care Teams Press Tender Smoke Signal Relationship Specialty Start Date End Date Roberto Saleem MD [address] [facility] [address] [place] [address] PCP - General 10/31/19 Nomi Moore MD PhD [address] [facility] [address] [place] [address] Consulting Physician Neurology 11/01/19 Spencer Fulton MD [address] [facility] [address] [facility] [address] [place] [address] Consulting Physician Orthopedic Surgery 10/26/23
--- OUTSIDE RECORDS SUMMARY | 2025-08-14 20:03 | XMS_ITS | Clinical Summary ---
Author Organization [facility] Address [address] [facility] [place] [address] Care Team Providers Care Design Consultant Name Role Phone Roberto Saleem MD Primary Care Provider [phone] Source Comments [facility],non-[facility]ates and Associated Physician Practices is amultiple site organization consisting of ambulatory clinics and hospital sitesin [place], [place], [place] and [place]. This disclosure is being madepursuant to the Care Everywhere program and may not contain all information available regarding this patient. 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 Gender Identity Not on file Sexual Orientation Not on file Last Filed Vital Signs Vital Sign Reading Time Taken Comments Blood Pressure 152/80 11/09/2013 9:56 AM HANDBAG FRAMER Pulse 61 11/09/2013 9:56 AM HANDBAG FRAMER Temperature - - Respiratory Rate 18 11/09/2013 9:56 AM HANDBAG FRAMER Oxygen Saturation - - Inhaled Oxygen Concentration - - Weight 142.9 kg (315 lb) 11/09/2013 9:56 AM HANDBAG FRAMER Height - - Body Mass Index - - Plan of Treatment Health Maintenance Due Date Last Done Comments DTAP/TDAP/TD VACCINES (1 - Tdap) 1961 PNEUMOCOCCAL VACCINE 50+ (1 of 1 - PCV) 1992 ZOSTER VACCINE (1 of 2) 1992 Respiratory Syncytial Virus (RSV) Vaccine Pt: or over 60 yrs (1 - 1-dose 75+ series) 2017 DEPRESSION SCREENING 11/01/2024 MEDICARE AWV CALENDAR YEAR 2024 COVID-19 VACCINE ( - 2024- season) 2025 07/30/2021, 01/09/2021, 12/19/2020 INFLUENZA VACCINE (#1) 2025 , 06/27/2020, 08/17/2019, [...] REYEZ Subscriber ID:Not on file Address: [address] [place] [address] Payer ID:Not on file Group ID:Not on file Type:Self Pay Address: [place], [place] [employer] MED[employer]ARE ADV SELF PAY NO INSURANCE Member Subscriber Plan / Payer (Ef fective for All Dates) Name:Reynold Reyez Member ID:Not on file Relation to Subscriber:Not on file Name:REYNOLD REYEZ Subscriber ID:Not on file Address: [place] [address] Payer ID:Not on file Group ID:Not on file Type:Self Pay Address: [place], [place] [employer] MED[employer] ADV SELF PAY NO INSURANCE Member Subscriber Plan / Payer (Ef fective for All Dates) Name:Reynold Reyez Member ID:Not on file Relation to Subscriber:Not on file Name:REYNOLD REYEZ Subscriber ID:Not on file Address: [address] [place] [address] Payer ID:Not on file Group ID:Not on file Type:Self Pay Address: [place], [place] [employer] MED[employer] ADV SELF PAY NO INSURANCE Member Subscriber Plan / Payer (Ef fective for All Dates) Name:Reynold Reyez Member ID:Not on file Relation to Subscriber:Not on file Name:REYNOLD REYEZ Subscriber ID:Not on file Address: [address] [place] [address] Payer ID:Not on file Group ID:Not on file Type:Self Pay Address: [place], [place] [employer] ADV SELF PAY NO INSURANCE Member Subscriber Plan / Payer (Ef fective for All Dates) Name:Reynold Reyez Member ID:Not on file Relation to Subscriber:Not on file Name:DEREJEREYNOLD Subscriber ID:Not on file Address: [place] [address] Payer ID:Not on file Group ID:Not on file Type:Self Pay Address: [place] [employer] ADV SELF PAY NO INSURANCE Member Subscriber Plan / Payer (Ef fective for All Dates) Name:EfrainharrisonReynold jalloh Member ID:Not on file Relation to Subscriber:Not on file Name:DEREJEBRENNENREYNOLD Subscriber ID:Not on file Address: [place] [address] Payer ID:Not on file Group ID:Not on file Type:Self Pay Address: [place], [place] Care Teams Design Consultant Relationship Specialty Start Date End Date Roberto Saleem MD [address] [place] [address] PCP - General 12/25/10
--- OUTSIDE RECORDS SUMMARY | 2025-08-14 20:03 | XMS_ITS | Clinical Summary ---
Author Organization [facility] Address [address] [place] [address] Care Team Providers Care Membership Counselor Name Role Phone Roberto Saleem MD Primary Care Provider [phone] Allergies Active Allergy Reactions Criticality Noted Date Comments Lisinopril Cough Low 10/21/2021 Morphine Itching Medium 10/21/2021 Oxycodone Other (see comment) 04/06/2024 Medications allopurinol 300 MG tablet Take 1 tablet (300 mg total) by mouth daily. 2 Active amLODIPine 10 MG tablet Pt states takes it daily 2 Active atorvastatin 80 MG tablet Take [...] Gel AndroGel Active Lancets (ONETOUCH DELICA PLUS [id number]) [facility] OneTouch Delica Plus Lancet 30 gauge Active Blood Glucose Monitoring Suppl (ONETOUCH PING METER REMOTE) Supplies [facility] [employer] Verio Flex Meter Active betamethasone dipropionate 0.05 [...] Encounters Date Type Department Care Team Description 07/09/2025 1:00 PM CDT - 07/09/2025 1:20 PM CDT Surgery [facility] [place] [address] [phone] Dona Rodriguez MD INJECTION EPIDURAL [id number] 07/09/2025 12:15 PM CDT - 07/09/2025 1:06 PM CDT Hospital Encounter [facility] [place] [address] [phone] Dona Rodriguez MD Discharge Disposition: Home or Self Care (Routine Discharge) 07/09/2025 Travel 06/22/2025 8:50 AM CDT - 06/22/2025 11:59 PM CDT [facility] [address] [place] [address] Bret Wilson MD Discharge Disposition: Home or Self Care (Routine Discharge) 06/22/2025 Travel 05/15/2025 Telephone [facility] [place] [address] [phone] Amirah Page RN Postprocedure Call 05/15/2025 Prep for Procedure [facility] [place] [address] [phone] Kenzie Chen, MEHREEN from Last 3 Months Family History Medical [...] Sign Reading Time Taken Comments Blood Pressure 147/67 07/09/2025 1:04 PM CDT Pulse 63 07/09/2025 1:04 PM CDT Temperature 36.1 C (97 F) 07/09/2025 12:28 PM CDT Respiratory Rate 16 07/09/2025 1:04 PM CDT Oxygen Saturation 98% 07/09/2025 1:04 PM CDT Inhaled Oxygen Concentration - - Weight 123.8 kg (273 lb) 07/09/2025 12:28 PM CDT Height 180.3 cm (5' 11) 07/09/2025 12:28 PM CDT Body Mass Index 38.08 07/09/2025 12:28 PM CDT Plan of Treatment Health Maintenance Due Date Last Done Comments Kidney Health Evaluation 1942 Diabetes: Retinopathy Eye Exam 1960 Annual Medicare Wellness Visit 2007 Pneumococcal Vaccine: 50+ Years (2 of 2 - PPSV23, PCV20, or PCV21) 09/30/2018 08/05/2018 Hemoglobin A1C 02/22/2025 08/24/2024, 10/01, 10/31/2019 COVID-19 Vaccine ( season) 2025 07/22/2023, 07/22/2023, 08/07/2022, Additional history exists Influenza Adult (#1) 2025 06/22/2024, 07/22/2023, 07/12/2021, Additional history exists Lipid Panel 05/30/2026 05/30/2025 DTaP, Tdap and Td Vaccines (2 - Td or Tdap) 04/23/2030 04/23/2020 Zoster Vaccines Completed 08/17/2019, 08/01, 07/11/2019, Additional history exists RSV Immunization or 60+ Years Completed 07/22/2023 Hepatitis A Vaccines Aged Out No long er eligible based on patient's age to complete this topic Meningococcal B Vaccine Aged Out No l onger eligible based on patient's age to complete this topic Meningococcal Vaccine Aged Out No yadi charles eligible based on patient's age to complete this topic RSV Immunizations Under 20 Months Aged Out No longer eligible based on patient's age to complete this topic Procedures Procedure Name Priority Date/Time Associated Diagnosis Comments NJX AA&/STRD TFRML EPI LUMBAR/SACRAL 1 LEVEL 07/09/2025 12:46 PM CDT Lumbar radiculopathy XR [facility] C-ARM Today 07/09/2025 12:37 PM CDT POCT GLUCOSE - DOCKED DEVICE Routine 07/09/2025 12:37 PM CDT MRI LUMB SPINE WO CON Routine 06/22/2025 10:03 AM CDT Radiculopathy, lumbosacral region Low back pain, unspecified Other chronic pain Type 2 diabetes mellitus without complication (CMS/HCC HHS/HCC) from Last 3 Months Results * XR PAIN CLINIC C-ARM (07/09/2025 12:37 PM CDT) Narrative Radiology, Technologist - 07/09/2025 12:37 PM CDT This report does not contain a radiologist's interpretation. Please review associated procedure and/or operative report. us Dona Rodriguez MD GENERAL IMAGING Final Result * POCT glucose (07/09/2025 12:37 PM CDT) GLUCOSE POC 89 70 - 99 mg/dL 07/09/2025 12:39 PM CDT [facility] 07/09/2025 12:3 7 PM CDT us Dona Rodriguez MD POCT ORDERABLES - DEVICE Dina l Result [facility] [address] [place] [address], [place] [phone] * MRI LUMB SPINE WO CON (06/22/2025 10:03 AM CDT) Anatomical Region Laterality Modality Spine Magnetic Resonan ce 06/29/2025 12:0 0 AM CDT Impressions 06/29/2025 12:04 AM CDT IMPRESSION: Moderate to marked multilevel lumbar spondylosis greatest at L2-3, as described above. Referred By: BRET WILSON Interpreted By: Raymond Perea MD, 06/29/2025 12:00 AM Narrative 06/29/2025 12:04 AM CDT [id number] [place] [address] EXAMINATION: MRI LUMB SPINE WO KIRK, 06/29/2025 12:00 AM TECHNIQUE: Multiplanar multisequence magnetic resonance images of the lumbar spine were obtained without intravenous contrast. HISTORY: Chronic low back pain COMPARISON: None available FINDINGS: There are 5 nonrib-bearing lumbar-type vertebral bodies. The lumbar vertebral bodies and facets are well aligned. The lumbar vertebral body heights are preserved. There is intervertebral disc height loss at L2-3, L3-4 and L5-S1 with endplate degenerative changes at these levels. Multiple renal cysts. Suggestion of an aortoiliac stent graft. Diverticulosis of the sigmoid colon without evidence of diverticulitis. T10-11: No significant spinal canal stenosis. Facet joint protruding the. Mild to moderate right neural foraminal stenosis. Mild left neural foraminal stenosis. T11-12: No significant spinal canal stenosis. Moderate facet hypertrophy. Moderate bilateral neural foraminal stenosis. T12-L1: Disc bulge with superimposed central disc protrusion compressing the ventral thecal sac. Mild spinal canal stenosis. Moderate facet hypertrophy. Mild bilateral neural foraminal stenosis. L1-2: Disc bulge impressing the ventral thecal sac. Mild spinal canal stenosis. Moderate to marked facet hypertrophy. Mild to moderate bilateral neural foraminal stenosis. L2-3: Disc bulge compressing the ventral thecal sac. Moderate to severe spinal canal stenosis. Marked facet hypertrophy. Mild to moderate left neural foraminal stenosis. Moderate right neural foraminal stenosis. L3-4: Disc bulge impressing the ventral thecal sac. Moderate spinal canal stenosis. Moderate to marked facet hypertrophy. [id number] left neural foraminal stenosis. Moderate right neural foraminal stenosis. L4-5: Disc bulge impressing the ventral thecal sac. Moderate spinal canal stenosis. Marked facet hypertrophy. Mild to moderate left neural foraminal stenosis. Moderate right neural foraminal stenosis. L5-S1: Disc bulge impressing the ventral thecal sac. Mild to moderate spinal canal stenosis. Moderate facet hypertrophy. Severe right neural foraminal stenosis. Moderate left neural foraminal stenosis. Procedure Note Raymond Perea MD - 06/29/2025 [id number] [place] [address] EXAMINATION: MRI LUMB SPINE WO KIRK, 06/29/2025 12:00 AM TECHNIQUE: Multiplanar multisequence magnetic resonance images of thelumbar spine were obtained without intravenous contrast. HISTORY: Chronic low back pain COMPARISON: None available FINDINGS: There are 5 nonrib-bearing lumbar-type vertebral bodies. Thelumbar vertebral bodies and facets are well aligned. The lumbar vertebralbody heights are preserved. There is intervertebral disc height loss atL2-3, L3-4 and L5-S1 with endplate degenerative changes at these levels.Multiple renal cysts. Suggestion of an aortoiliac stent graft.Diverticulosis of the sigmoid colon without evidence of diverticulitis. T10-11: No significant spinal canal stenosis. Facet joint protruding the.Mild to moderate right neural foraminal stenosis. Mild left neuralforaminal stenosis. T11-12: No significant spinal canal stenosis. Moderate facet hypertrophy.Moderate bilateral neural foraminal stenosis. T12-L1: Disc bulge with superimposed central disc protrusion compressingthe ventral thecal sac. Mild spinal canal stenosis. Moderate facethypertrophy. Mild bilateral neural foraminal stenosis. L1-2: Disc bulge impressing the ventral thecal sac. Mild spinal canalstenosis. Moderate to marked facet hypertrophy. Mild to moderatebilateral neural foraminal stenosis. L2-3: Disc bulge compressing the ventral thecal sac. Moderate to severespinal canal stenosis. Marked facet hypertrophy. Mild to moderate leftneural foraminal stenosis. Moderate right neural foraminal stenosis. L3-4: Disc bulge impressing the ventral thecal sac. Moderate spinal canalstenosis. Moderate to marked facet hypertrophy. [id number] leftneural foraminal stenosis. Moderate right neural foraminal stenosis. L4-5: Disc bulge impressing the ventral thecal sac. Moderate spinal canalstenosis. Marked facet hypertrophy. Mild to moderate left neuralforaminal stenosis. Moderate right neural foraminal stenosis. L5-S1: Disc bulge impressing the ventral thecal sac. Mild to moderatespinal canal stenosis. Moderate facet hypertrophy. Severe right neuralforaminal stenosis. Moderate left neural foraminal stenosis. IMPRESSION: Moderate to marked multilevel lumbar spondylosis greatest at L2-3, asdescribed above. Referred By: BRET WILSON Interpreted By: Raymond Perea MD, 06/29/2025 12:00 AM Bret Wilson MD MRI Final Result from Last 3 Months Insurance [employer] MEDICARE Care Teams Membership Counselor Relationship Specialty Start Date End Date Roberto Saleem MD [address] [place] [address] PCP - General INTERNAL MEDICINE 02/17/22
--- OUTSIDE RECORDS SUMMARY | 2025-08-14 20:03 | XMS_ITS | Data Portability ---
Author Organization [place] [facility], Main Office Address [address] [place] [address] Assessment Encounter Date Assessment Date Assessment LastModified [...] DO Not Attach Compendium, Do Not Delete/merge, [id number] 3 14:13:11 injection/a spiration joint/bursa (PROC) - in office procedure, administere d by provider 2022 023 [email or web address] In-Office Order, Internal Use Only DO Not Attach Compendium DO Not Attach Compendium, Do Not Delete/merge, [id number] 3 09:40:43 injection/a spiration joint/bursa (PROC) - in office procedure, administere d by provider 2022 023 [email or web address] In-Office Order, Internal Use Only DO Not Attach Compendium DO Not Attach Compendium, Do Not Delete/merge, [id number] 3 08:57:06 injection/a spiration joint/bursa (PROC) - in office procedure, administere d by provider 2022 023 [email or web address] In-Office Order, Internal Use Only DO Not Attach Compendium DO Not Attach Compendium, Do Not Delete/merge, [id number] 3 09:27:11 Surgeries None recorded. Imaging XR, knee 2022 023 [email or web address] [facility], [address], [place], [address], 3 10:00:08 XR, hand, 3 or more view 2022 023 [email or web address] [facility], [address], [place], [address], 3 09:55:58 Medication Orders bupivacaine HCl 0.5 % (5 mg/mL) injection solution 2022 023 [email or web address] #97295, [address] [facility] [address] [place] [address], [id number], 3 15:17:55 Kenalog 10 mg/mL suspension for injection 2022 023 Heyy [facility] #42825, [address] [place] [address], [id number], 3 15:17:55 Kenalog 10 mg/mL suspension for injection 2022 023 [facility] #71909, [address] [place] [address], [id number], 3 09:55:28 ropivacaine (PF) 5 mg/mL (0.5 %) injection solution 2022 023 Heyy [facility] #13830, [address] [place] [address], [id number], 3 09:55:28 Kenalog 10 mg/mL suspension for injection 2022 023 [facility] #56019, [address] [place] [address], [id number], 3 09:07:20 ropivacaine (PF) 5 mg/mL (0.5 %) injection solution 2022 023 [facility] #93712, [address] [facility] [address] [place] [address], [id number], 3 09:07:20 Kenalog 10 mg/mL suspension for injection [email or web address] [facility] #81569, [address] [facility] [address] [facility], [place], [id number], 3 09:53:52 ropivacaine (PF) 5 mg/mL (0.5 %) injection solution [address] [facility] #79237, [address] [facility] [address] [place] [address], [id number], 3 09:53:52 Patient TargetsNo targets recorded. Patient InstructionsNo instructions recorded. Reason for Referral None Reported. Results Created Date Observation Date Name Description Value Unit Range Abnormal Flag Note LastModifiedBy Organization Detail LastModifiedTime 11/30/19 23 XR, foot, 3 or more view No observ ation record ed. [id number] [facility] [address], [place], [address], 12/30/2022 13:53:28 02/12/20 23 XR, hand, 3 or more view No observ ation record ed. [facility] [address], [address], 02/11/2023 09:52:08 07/08/20 23 XR, knee No observ ation record ed. [facility] [address], [address], 07/08/2023 09:55:03 Result Notes None recorded. Problems Name Problem SNOMED Code Status Onset Date Resolution Date Notes Provider Name and Address Organization Details Recorded Time Radiothera py follow-up 945958111 Active Not Available [facility] 3 13:51:57 Osteoarthr itis of hip 936271060 Active Not Available [facility] 3 13:51:58 Low back pain 567735715 Active Not Available [facility] 3 13:51:58 Current tear of medial cartilage AND/OR meniscus of knee Active Not Available [facility] 3 13:51:58 Knee pain Active Not Available [facility] 3 13:51:58 Osteoarthr itis 580700841 Active Not Available [facility] 3 13:51:58 Derangemen t of knee 11051244 Active Not Available [facility] 3 13:51:58 Knee pain Active 2019 Not Available [facility] 3 13:51:58 Trigger finger of right hand 6072788711945 9101 Active 2021 Not Available [facility] 3 13:51:57 Pain of left hand 6062991038659 03 Active 2021 Not Available [facility] 3 13:51:58 Pain of bilateral knee joints 0998726472352 04 Active 2021 Not Available [facility] 3 13:51:58 Localized, primary osteoarthr itis of the ankle and/or foot 270993733 Active 2022 Not Available [facility] 3 13:51:58 Localized, primary osteoarthr itis of the ankle and/or foot 660329473 Active 2022 Not Available [facility] 3 13:51:58 Pain in left foot 5501232578430 07 Active 2022 VIRGIE Rincon null, [place] [facility] [employer] [facility] 3 09:24:30 Acquired trigger finger of left ring finger 7834211174886 09 Active 2022 JOANNE Holbrook [address], [place], [address] , [facility] 09:51:01 Problem Notes None recorded. Procedures Surgical History Date Name Laterality Status Provider Name and Address Organization Details Recorded Time hip joint reconstruction completed Not Available [facility] 12/30/2022 13:51:43 Knee completed VIRGIE Rincon [place] [employer] [facility] 02/11/2023 09:23:41 Imaging Results None recorded. Procedure Notes None recorded. Medical Equipment None Reported. Allergies Allergen ID Allergen Name Allergen Category Reaction Reaction Severity Criticality Documentation Date Start Date Code Code System Note Provider Name and Address Organization Details Recorded Time 36181 morphine medicatio n itching Not available Not available 12/30/2022 7052 RxNorm Not Available [facility] 13:53:27 71298 Product containin g angiotens in-conver ting enzyme inhibitor (product) medicatio n cough Not available Not available 12/30/2022 33063 009 SNOMED Not Available [facility] 13:53:27 Medications Name Sig Start Date [...] mg by injectio n route. 2022 active [facility]: 0003-049 02-18 Not Available Not Available Not [...] office by the doctor 03/25 completed NDC: 05271646 001 Not Available Not Available Not Available [...] mg by injectio n route. 2022 active [facility] 70996-27 4- Not Available Not Available Not Available [...] Available Not Available No t Available Fluvirin 4842-2095 45 mcg (15 mcg x 3)/0.5 mL [...] Available Not Available Not Available Fluzone High-Dose 4114-8351 (PF) 180 mcg/0.5 mL intramusc ular syringe [...] Updated DateTime 11/30/2022 39.7 kg/m2 180.34 cm 903670.83 g Not Available [facility] 12/30/2022 13:51:51 Date Recorded Body height Body mass index (BMI) Body weight Provider Name and Address Organization Details Last Updated DateTime 02/11/2023 180.34 cm 25.1 kg/m2 47882.63 g VIRGIE Rincon [employer] [facility] 02/11/2023 09:20:14 Date Recorded Body height Body mass index (BMI) Body weight Provider Name and Address Organization Details Last Updated DateTime 03/04/2023 180.34 cm 39.7 kg/m2 029551.83 g Jaimie Finch [facility] [employer] 03/04/2023 08:55:37 Date Recorded Body height Body mass index (BMI) Body weight Provider Name and Address Organization Details Last Updated DateTime 07/08/2023 180.34 cm 39.7 kg/m2 963999.83 g KUN Barajas [employer] 07/08/2023 09:39:05 Date Recorded Body height Body mass index (BMI) Body weight Provider Name and Address Organization Details Last Updated DateTime 10/14/2023 180.34 cm 39.1 kg/m2 961877.86 g KUN Barajas [employer] 10/14/2023 14:08:11 Social History None recorded. Functional Status Question Answer Note LastModified by Organizat ion Details LastModified Time What is your level of alcohol consumption? Occasional [email or web address] Information not available 02/11/2023 Mental Status None recorded. Family History Relationship Description Onset Age of this Age Resolved Age Notes LastModified by Organization Details LastModified Time Father Family history of malignant neoplasm [email or web address] Not available 10/14 14:06:34 Father History of hypertension [email or web address] Not available 14:06:34 Father Kidney disease [email or web address] Not available 2022 09:23:18 Unspecified Relation Heart disease [id number] [id number] Not available 12/30/2022 13:51:44 Unspecified Relation Diabetes mellitus [id number] [id number] Not available 12/30/2022 13:51:44 Mother History of hypertension [email or web address] Not available 14:06:34 Medical History Condition Response [...] HAVE YOU BEEN HOSPITALIZED OR SEEN IN [facility] ER IN THE PAST YEAR ? N [...] Diagnosis SNOMED-CT Code Diagnosis ICD10 Code Diagnosis IMO Codes Diagnosis Note [id number] JOANNE Holbrook [facility] [address] [facility] [address] [place] [address] 03/25/2021 00:00:00 03/25/2021 16:09:26 [id number] Chadwick Ku MD [facility] [address] [facility] [address] [place] [address] 09/08/2021 00:00:00 09/08/2021 10:17:23 [id number] Chadwick Ku MD [facility] [address] [facility] [address] [place] [address] 11/25/2021 00:00:00 11/25/2021 16:06:41 [id number] Chadwick Ku MD [facility] [address] [facility] [address] [place] [address] 01/07/2022 00:00:00 01/07/2022 14:47:48 [id number] Chadwick Ku MD [facility] [address] [place] [address] 04/28/2022 00:00:00 04/28/2022 17:04:01 [id number] Chadwick Ku MD [facility] [address] [facility] [address] [place] [address] 08/11/2022 00:00:00 08/11/2022 15:35:35 [id number] Chadwick Ku MD [facility] [address] [place] [address] 11/30/2022 00:00:00 11/30/2022 09:53:23 [id number] Chadwick Ku MD [facility] 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 [place] [address] 07/08/2023 09:36:52 07/08/2023 10:00:07 Pain of bilateral knee joints 7706913955 61152 M25.561 M25.562 Osteoarthritis 552644582 M17.0 [id number] JOANNE Holbrook [facility] [address] [place] [address] 10/14/2023 14:05:54 10/14/2023 14:48:05 Pain of bilateral knee joints 0975896020 77601 M25.561 M25.562 Osteoarthritis 788489283 M17.0 Health Concerns Section Related Observation LastModified by Organization Detai ls LastModified Time None Recorded Concern Status LastModified by Organization Details LastModified Time None Recorded Advance Directives Directive None Recorded Payers Insurance Date Sequence Insurance Name Policy Number Policy Hernandez Covered Member ID Hernandez Member ID Guarantor Name 10/21/2023 1 [employer] (MEDICARE REPLACEMENT/ ADVANTAGE - PPO) [id number] Reynold Machado [id number] Reynold Machado Notes Date Note Type Note [...] today with the patient. JOANNE Holbrook [address] [facility] [facility] [address], [place], [address], [place] [facility] [place] [employer] 02/11/2023 09:52:32 03/04/2023 text/html Patient returns complaining of bilateral knee pain right worse left. He has chronic advanced primary osteoarthritis with significant narrowing in the medial and patellofemoral compartments which are wvgv-yn-tris. He gets by with cortisone injections it has been about 3 months since his last injections he would like to repeat these today they do work well for him allow to get out by golf etc.. Today denies any new symptoms no new trauma or injury to either knee. JOANNE Holbrook [address], [place], [address], [employer] [facility] [employer] [facility] 03/04/2023 09:09:40 07/08/2023 text/html Patient returns requesting bilateral knee injections. He comes in every few months it has been 4 months since his last injections. They gave him good relief. He has advanced chronic primary osteoarthritis with significant narrowing in the medial and patellofemoral compartments which are [id number]-[id number]. He is not interested in total knee arthroplasty at this time we have talked about it previously. Denies any new trauma injury no erythema heat effusion or signs of infection in either knee. JOANNE Holbrook [address], [place], [address], [employer] [facility] 07/08/2023 09:55:23 10/14/2023 text/html Patient returns for bilateral knee injections he has severe primary osteoarthritis in the patellofemoral articulations which are nhon-qe-zzxi bilaterally and also in the right medial [...] JOANNE Holbrook [address], [place], [address], [employer] [facility] 10/14/2023 14:36:49
--- OUTSIDE RECORDS SUMMARY | 2025-08-14 20:03 | XMS_ITS | Clinical Summary ---
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 01/16/2025 Active atorvastatin (LIPITOR) 80 mg tablet Take 80 mg by mouth daily. 10/24/2024 Active candesartan (ATACAND) 32 mg Tablet Take 32 mg by mouth daily. 10/24/2024 Active carvediloL (COREG) 25 mg tablet Take 25 mg by mouth 2 times daily. 02/01/2024 Active celecoxib (CeleBREX) 200 mg capsule Take 200 mg by mouth 2 times daily. 03/24/2024 Active Gemtesa 75 mg Tablet Take 75 mg by mouth daily. 09/08/2023 Active hydroCHLOROthia zide 25 mg tablet Take 25 mg by mouth. Active LORazepam (ATIVAN) 1 mg tablet Take 1 mg by mouth every 8 hours as needed. 02/09/2025 Active levothyroxine 100 mcg tablet Take 100 mcg by mouth daily in the morning. 01/28/2024 Active metFORMIN (GLUCOPHAGE) 500 mg tablet Take 500 mg by mouth daily. 07/28/2022 Active testosterone (ANDROGEL) 20.25 mg/1.25 gram (1.62 %) Gel in Metered-dose Pump Apply 20.25 mg to affected area daily. 07/29/2022 Active linaGLIPtin (TRADJENTA) 5 mg Tablet Take 5 mg by mouth daily. 01/30/2024 Active Xigduo XR 10-1,000 mg tablet, IR & ER, biphasic 24hr Take 1 Tablet by mouth daily in the morning. 07/23/2022 Active aspirin (ECOTRIN EC) 325 mg Tablet, Delayed Release (E.C.) Take 325 mg by mouth daily. Active DOCOSAHEXAENOIC ACID ORAL Take 3,000 mg by mouth 2 times daily. Active multivitamin (DAILY-RICHARD) tablet Take 1 Tablet by mouth daily in the morning. Active Cholecalciferol , Vitamin D3, 50 mcg (2,000 unit) Capsule Take 50 mcg by mouth daily. 10/13/2023 Active docusate sodium (COLACE) 100 mg capsule Take 100 mg by mouth 2 times daily. 01/21/2024 Active Active Problems No known active problems Encounters Date Type Department Care Team Description 08/07/2025 External Device Data STL ABSTRACTION Provider, Abstract 07/20/2025 12:30 PM CDT Office Visit [facility] [address] [place] [id number] Scott Del Castillo MD Mass of left lung (Primary Dx) 07/17/2025 External Device Data STL ABSTRACTION Provider, Abstract 07/17/2025 External Device Data STL ABSTRACTION Provider, Abstract 07/13/2025 6:20 AM CDT - 07/13/2025 12:07 PM CDT Hospital Encounter [facility] [id number] [place] [id number] Scott Del Castillo MD , [facility] [address] Mass of left lung Discharge Disposition: Home or Self Care 07/04/2025 External Device Data STL ABSTRACTION Provider, Abstract 07/03/2025 External Device Data STL ABSTRACTION Provider, Abstract 07/03/2025 External Device Data STL ABSTRACTION Provider, Abstract 06/28/2025 3:00 PM CDT Office Visit [facility] [place] [address] [place] [phone] Scott Del Castillo MD Mass of left lung (Primary Dx) 06/28/2025 Orders Only [facility] [place] [address] [place] [address] Scott Del Castillo MD Mass of left lung (Primary Dx) from Last 3 Months Social History Tobacco Use Types Packs/Day Years Used Date Smoking Tobacco: Former Cigarettes Q uit: 1958 Smokeless Tobacco: Never Tobacco Cessation:Counseling Given: Not Answered Alcohol Use Standard Drinks/Week Comments Yes 14 (1 standard drink = 0.6 oz pu re alcohol) Sex and Gender Information Value Date Recorded Sex Assigned at Not on file Legal Sex Male 12:17 PM CDT Gender Identity Not on file Sexual Orientation Not on file Last Filed Vital Signs Vital Sign Reading Time Taken Comments Blood Pressure 162/77 07/20/2025 1:07 PM CDT Pulse 67 07/20/2025 1:04 PM CDT Temperature 36.1 C (96.9 F) 07/20/2025 1:04 PM CDT Respiratory Rate 16 07/20/2025 1:04 PM CDT Oxygen Saturation 95% 07/20/2025 1:04 PM CDT Inhaled Oxygen Concentration - - Weight 121.6 kg (268 lb) 07/20/2025 1:04 PM CDT Height 180.3 cm (5' 11) 07/13/2025 6:36 AM CDT Body Mass Index 37.38 07/13/2025 6:36 AM CDT Plan of Treatment Upcoming Encounters Date Type Department Care Team (Late st Contact Info) Description 10/19/2025 11:00 AM SOFTWARE APPLICATIONS SPECIALIST Office Visit [facility] [place] [address] [place] [address] Scott Del Castillo MD [address] [facility] [address] [place] [address] Health Maintenance Due Date Last Done Comments DIABETES ANNUAL FOOT EXAM 1960 DIABETES ANNUAL RETINAL EXAM 1960 DIABETES MICROALBUMIN ANNUAL SCREEN 1960 LDL CHOLESTEROL ANNUAL 1960 DTAP/TDAP/TD VACCINES (1 - Tdap) 1961 RSV VACCINE (60+ or ) (1 - 1-dose 75+ series) 2017 PNEUMOCOCCAL VACCINE 50+ YEA RS (2 of 2 - PPSV23, PCV20, or PCV21) 09/30/2018 08/05/2018, 10/01/2009 DIABETES HBA1C Q 6 MONTHS 02/22/2025 08/24/2024 INFLUENZA VACCINE (#1) 2025 , 06/27/2020, 08/17/2019, Additional history exists ZOSTER VACCINE Completed 08/17/2019, 07/02, 05/03/2019 Procedures Procedure Name Priority Date/Time Associated Diagnosis Comments XR CHEST PA OR AP 1 VW Stat 07/13/2025 11:[address] BIOPSY LUNG LEFT Routine 07/13/2025 8 :55 AM CDT Mass of left lung PATHOLOGY Routine 07/13/2025 8:44 AM CDT CBC WITH DIFFERENTIAL Stat 07/13/2025 6:48 AM CDT from Last 3 Months Results * XR CHEST PA OR AP 1 VW (07/13/2025 11:23 AM CDT) Anatomical Region Laterality Modality Chest Computed Radiogr aphy 07/13/2025 11:2 4 AM CDT Impressions 07/13/2025 11:30 AM CDT IMPRESSION: 1. No pneumothorax. DICTATION LOCATION: Location 1 - [facility] 07/13/2025 11:30 AM CDT EXAMINATION: X-RAY CHEST PA OR AP 1 VIEW DATE: 07/13/2025 11:23 AM HISTORY: Lung biopsy. COMPARISON: None. FINDINGS: No focal lung consolidation, pneumothorax or pleural effusion. The cardiomediastinal silhouette is normal. Procedure Note Lazarus Laurent MD - 07/13/2025 EXAMINATION: X-RAY CHEST PA OR AP 1 VIEW DATE: 07/13/2025 11:23 AM HISTORY: Lung biopsy. COMPARISON: None. FINDINGS: No focal lung consolidation, pneumothorax or pleural effusion. The cardiomediastinal silhouette is normal. IMPRESSION: 1. No pneumothorax. DICTATION LOCATION: Location [address] [place] [address] Lazarus Laurent MD DIAGNOSTIC IMAGING ORDERABLES Final Result * CT BIOPSY LUNG LEFT (07/13/2025 8:55 AM CDT) Anatomical Region Laterality Modality Chest Computed Tomogra phy 07/13/2025 8:37 AM CDT Impressions 07/13/2025 4:20 PM CDT IMPRESSION: Successful core needle biopsy of lung using CT guidance. DICTATION LOCATION: Location [address] [place] [address] Narrative 07/13/2025 4:20 PM CDT EXAMINATION: CORE NEEDLE BIOPSY OF LUNG USING CT GUIDANCE DATE: 07/13/2025 8:55 AM HISTORY: 84 years-old Male with left upper lobe pulmonary nodule. ANESTHESIA: The procedure was performed with local anesthesia. PHYSICIAN(S): Dr. Lazarus Laurent MD TECHNIQUE: The risks, benefits and alternatives were discussed and informed consent was obtained. Prior to beginning the procedure, [place] Protocol was performed to confirm the patient's identity and the planned procedure. Sterile barriers including hand hygiene, sterile gloves, and sterile drape were used. 2% chlorhexidine was used for cutaneous antisepsis. The patient was placed in the supine position. The biopsy site was selected and marked on the skin. The skin was infiltrated with 1% lidocaine. A 20-gauge biopsy device was used. Under intermittent CT guidance, an outer coaxial needle was advanced adjacent to the target in the left lung and 2 cm core biopsies obtained and placed in formalin. The specimens were sent to pathology for histologic evaluation. The tract was closed using a BioSentry device. A sterile dressing was applied. ESTIMATED BLOOD LOSS: 10 cc. CONDITION: Stable. DISCHARGED TO: Recovery and then to home. FINDINGS: Initial images show left upper lobe pulmonary nodule. Subsequent images show biopsy needle adjacent to the intended target. Post biopsy images show no postprocedure complication. The patient tolerated the procedure without immediate complications. Procedure Note Lazarus Laurent MD - 07/13/2025 EXAMINATION: CORE NEEDLE BIOPSY OF LUNG USING CT GUIDANCE DATE: 07/13/2025 8:55 AM HISTORY: 84 years-old Male with left upper lobe pulmonary nodule. ANESTHESIA: The procedure was performed with local anesthesia. PHYSICIAN(S): Dr. Lazarus Laurent MD TECHNIQUE: The risks, benefits and alternatives were discussed and informed consent was obtained. Prior to beginning the procedure, [place] Protocol was performed to confirm the patient's identity and the planned procedure. Sterile barriers including hand hygiene, sterile gloves, and sterile drape were used. 2% chlorhexidine was used for cutaneous antisepsis. The patient was placed in the supine position. The biopsy site was selected and marked on the skin. The skin was infiltrated with 1% lidocaine. A 20-gauge biopsy device was used. Under intermittent CT guidance, an outer coaxial needle was advanced adjacent to the target in the left lung and 2 cm core biopsies obtained and placed in formalin. The specimens were sent to pathology for histologic evaluation. The tract was closed using a BioSentry device. A sterile dressing was applied. ESTIMATED BLOOD LOSS: 10 cc. CONDITION: Stable. DISCHARGED TO: Recovery and then to home. FINDINGS: Initial images show left upper lobe pulmonary nodule. Subsequent images show biopsy needle adjacent to the intended target. Post biopsy images show no postprocedure complication. The patient tolerated the procedure without immediate complications. IMPRESSION: Successful core needle biopsy of lung using CT guidance. DICTATION LOCATION: Location 1 - [facility] Scott Del Castillo MD CT ORDERABLES Final Result * PATHOLOGY (07/13/2025 8:44 AM CDT) CASE REPORT Surgical Pathology Report Case: [id number] Authorizing Provider: Lazarus Laurent MD Collected: 07/13/2025 08:44 AM Ordering Location: [facility] [address] Received: 07/13/2025 01:58 PM [place] Pathologist: Lori Dugan MD Specimen: Lung, KARINA 12:13 PM CDT [facility] FINAL DIAGNOSIS Lung, left upper lobe, biopsy: - Benign alveolar lung parenchyma, 2-minute fragments of (see microscopic description). 12:13 PM CDT [facility] at 1212 CDT GROSS DESCRIPTION Received in one container labeled Reynold Machado and lung KARINA is a single possible semitranslucent gray tissue core measuring 0.7 cm in length and less than 0.1 cm in diameter. It is entirely submitted in cassette A1. Additional tissue is not found within the container or the lid. The specimen is scant and may not survive processing. ELH 5 12:13 PM T [facility] MICROSCOPIC DESCRIPTION Received are slides labeled [id number], Reynold Machado. The submitted lung, KARINA contain 2-minute pieces of alveolar lung parenchyma, with no significant histologic abnormalities. A distinct lesion or mass is not identified.. There is no evidence of malignancy, supported by TTF-1 and pancytokeratin staining pattern; however, the specimen is quite limited and likely not sales representative business courses of the radiographic noted lesion or sufficient for diagnosis. Clinical correlation with appropriate follow-up is recommended. Deeper levels were examined. 5 12:13 PM T [facility] OPERATIVE PROCEDURE CT GUIDED LUNG BIOPSY 5 12:13 PM [facility] CLINICAL INFORMATION LUNG MASS 5 12:13 PM [facility] COMMENT Special stain, immunohistochemical, and/or in situ hybridization results are interpreted with controls that demonstrate appropriate staining reactions. Note on use of immunohistochemistry reagents and in situ hybridization probes: These tests were developed and their performance characteristics determined by [facility], Department of Laboratory Medicine. It has not been cleared or approved by the U.S. Food and Drug Administration. The FDA has determined that such clearance or approval is not necessary. The test is used for clinical purposes. It should not be regarded as investigational or for research. This laboratory is certified to perform high complexity testing. Frozen section/operating room consultation, gross examination and dissection, and case sign out may have been performed in part or completely in the following laboratories: [facility], CLIA #[id number] [address] [place] [address] [facility], CLIA #[id number] [address] [place] [address] [facility], CLIA #[id number] [address] [facility] [place] [address] This report was created with the [employer] voice-activated dictation system. Inherent to this system is the possibility of syntax, grammar, punctuation and other errors that could impact the interpretation of the report. If there are interpretative questions about aspects of this report, please contact the performing pathologist. 12:13 PM CDT [facility] Tissue (Lung, KARINA) Collection / Unknown 07/13/2025 8:44 AM CDT 07/13/2025 1:58 PM CDT Comment:Please CC William Del Castillo ed, Scott Lira MD Lazarus Laurent MD PATHOLOGY/CYTOLOGY ORDERABLES Final Result [facility] [employer] [facility]# [id number] [address] [place] [address] * (ABNORMAL) CBC WITH DIFFERENTIAL (07/13/2025 6:48 AM CDT) WBC 6.3 4.0 - 9.8 K/uL 07/13/2025 7:16 AM CDT [facility] RBC 4.30(L) 4.50 - 5.40 M/uL 07/13/2025 7:16 AM CDT [facility] [employer] [facility] HEMOGLOBIN 13.4(L) 13.6 - 16.5 g/dL 07/13/2025 7:16 AM CDT [facility] HEMATOCRIT 39.9(L) 40.0 - 48.0 % 07/13/2025 7:16 AM CDT [facility] MCV 92.8 82.0 - 99.0 fL 07/13/2025 7:16 AM CDT [facility] MCH 31.2 27.2 - 32.6 pg 07/13/2025 7:16 AM CDT [facility] MCHC 33.6 31.5 - 35.5 g/dL 07/13/2025 7:16 AM CDT [facility] RDW 15.2(H) 11.5 - 14.5 % 07/13/2025 7:16 AM [employer] [facility] RDW-STDEV 52.1(H) 37.1 - 48.7 fL 07/13/2025 7:16 AM [employer] [facility] PLATELETS 143 140 - 350 K/uL 07/13/2025 7:16 AM [employer] [facility] MPV 10.1 9.3 - 12.4 fL 07/13/2025 7:16 AM [employer] [facility] NEUTROPHILS 65 % 07/13/2025 7:16 AM [employer] [facility] LYMPHOCYTES 21 % 07/13/2025 7:16 AM [employer] [facility] MONOCYTES 11 % 07/13/2025 7:16 AM [employer] [facility] EOSINOPHILS 2 % 07/13/2025 7:16 AM [employer] [facility] BASOPHILS 1 % 07/13/2025 7:16 AM [employer] [facility] IMMATURE GRANULOCYTES 1 % 07/13/2025 7:16 AM [employer] [facility] Comment:IG (Immature Granulo cyte) count includes Metamyelocytes, Myelocytes, and Promyelocytes NEUTROPHIL ABSOLUTE 4.10 1.90 - 7.00 K/uL 07/13/2025 7:16 AM [employer] [facility] LYMPHOCYTE ABSOLUTE 1.30 0.70 - 4.50 K/uL 07/13/2025 7:16 AM [employer] [facility] MONOCYTE ABSOLUTE 0.72 0.10 - 1.30 K/uL 07/13/2025 7:16 AM [employer] [facility] EOSINOPHIL ABSOLUTE 0.12 0.00 - 0.70 K/uL 07/13/2025 7:16 AM [employer] [facility] BASOPHILS ABSOLUTE 0.03 0.00 - 0.20 K/uL 07/13/2025 7:16 AM [employer] [facility] IMMATURE GRANULOCYTES ABSOLUTE 0.03 0.00 - 0.03 K/uL 07/13/2025 7:16 AM CDT [facility] Blood Venipuncture / Unknown 07/13/2025 6:48 AM CDT 07/13/2025 6:57 AM CDT Ceci Rao MD HEMATOLOGY ORDERABLES Final Resu lt [facility] CLIA# [id number] [address] [place] [address] from Last 3 Months [facility]
--- NOTE | 2025-08-14 22:05 | ECG_ITS ---
Test Date: 2025-08-14 22:00:14 Measurements Intervals [place] Rate: 57 P: 14 ID: [id number] QRS: -32 QRSD: 101 T: -2 QT: 420 QTc: 412 Interpretive Statements SINUS BRADYCARDIA WITH FIRST DEGREE AV BLOCK WITH OCCASIONAL SUPRAVENTRICULAR PREMATURE COMPLEXES INFERIOR INFARCT, AGE INDETERMINATE CONSIDER ANTERIOR INFARCT, AGE INDETERMINATE BASELINE ARTIFACT- I, II, III, AVR, AVL AVF ABNORMAL ECG Compared to ECG 08/14/2025 19:01:20 HEART RATE HAS DECREASED Electronically Signed On 08-15-2025 06:16:44 CDT by Alfredo Contreras D.O.
[2025-08-14 22:47] LABS: Troponin I 0.043 ng/mL (0.000-0.034)
--- NOTE | 2025-08-14 22:50 | ED.GENADULT ---
HPI - General Adult General Chief complaint: Recheck/Abnormal Lab/Rx Stated complaint: htn Time Seen by Provider: 08/14/25 19:41 History of Present Illness HPI narrative: Patient is an 84-year-old male who presents to the emergency department this evening complaining of left arm pain and tightness which started around 5:00 p.m. this afternoon. Patient states that he does have a history of coronary artery disease with multiple cardiac stents. Denies any chest pain or shortness of breath. States that by the time he came to the emergency department, his arm tightness did resolve. Patient states that he also noted that his blood pressure was slightly elevated today higher than usual. Other than that he denies any recent illness, fevers or chills. There are no additional modifying, alleviating, or precipitating factors at this time. Of note, patient states that he has not been taking his aspirin as he is preparing for a procedure. Related Data Home Medications ?Medication ?Instructions ?Recorded ?Confirmed ?Last Taken ?Type testosterone (AndroGel) 2 pump topical DAILY 09/05/19 05/08/25 01/19/25 History aspirin 325 mg tablet 325 mg PO DAILY 11/27/19 05/08/25 01/18/25 History Centrum Silver 1 tab-cap PO DAILY 04/23/20 05/08/25 01/19/25 History omega-3 fatty acids 1,000 mg 3,000 mg PO DAILY 05/16/20 05/08/25 01/19/25 History capsule (Fish Oil Concentrate) psyllium husk 0.52 gram capsule 1.04 g PO HS 02/20/21 05/08/25 01/18/25 History (Metamucil) vibegron 75 mg tablet (Gemtesa) [address] Fajardo 09/08/23 05/08/25 01/19/25 History cholecalciferol (vitamin D3) 50 50 mcg PO DAILY 10/13/23 05/08/25 01/19/25 History mcg (2,000 unit) capsule cholecalciferol (vitamin D3) 50 50 mcg PO DAILY 03/06/25 05/08/25 Unknown History mcg (2,000 unit) capsule Allergies Allergy/AdvReac Type Severity Reaction Status Date / Time morphine Allergy Intermediate Itching Verified 05/08/25 08:33 oxycodone (From Percocet) AdvReac Severe Confusion Verified 05/08/25 08:33 MARIA LUZ Inhibitors AdvReac Mild Cough Verified 05/08/25 08:33 lisinopril AdvReac Mild Cough Verified 05/08/25 08:33 Review of Systems Review of Systems: All systems are reviewed and are negative unless stated otherwise in the HPI. [facility] Past Medical History Medical History Lumbosacral radiculopathy at S1 CTS (carpal tunnel syndrome) BMI 38.0-38.9,adult Chronic pain of right knee Lung nodule Gout Insomnia Ruptured abdominal aortic aneurysm s/p repair, being monitored Seizure-like activity Testosterone deficiency Post-op pain Chronic low back pain LOUANN (obstructive sleep apnea) Dysphagia Elevated homocysteine Hx of transient ischemic attack (TIA) Bladder cancer Hypothyroidism (acquired) History of CVA (cerebrovascular accident) Hearing loss DM type 2 (diabetes mellitus, type 2) Prostate cancer screening DJD (degenerative joint disease), multiple sites [place] agent drug therapy Mixed hyperlipidemia Colon cancer screening Benign essential hypertension ASHD (arteriosclerotic heart disease) Surgical History Surgical History History of bilateral knee replacement Status post total knee replacement, left Status post total knee replacement, right History of intravascular stent placement Hx of hernia repair Status post urethral surgery S/P AAA repair History of total hip replacement Family History Family History Father Diabetes mellitus Family history of coronary artery disease Family history of diabetes mellitus in first degree relative Mother Family history of cardiovascular disease Family history of malignant neoplasm of brain Family history of heart disease in male family member before age 55 Social History Social History Social History: Smoking packs per day: 1 Smoking cigarettes per day: 20.0 Years smoked: 50 Smoking pack-years: 50.00 Smoking status: Former smoker Tobacco type: cigarettes Second hand tobacco smoke exposure: Yes Smoking end date: 11/01/04 Alcohol intake: current Drinks per week: 14 Alcohol use details: Daily; C[employer]TA[employer]S [employer] WINE Substance use: never Substance use type: does not use Do You Feel Safe in your Home?: Yes Lack of Transportation: No Lack of Food: Never True Current Housing: I Have Housing Concerned About Future Housing: No Difficulty Paying Gas/Electric Bills: No Difficulty Paying for Meds: No Currently Unemployed: No Education: Master's Degree or Higher Difficulty w/ Childcare or Family Care: No Living arrangements: alone Occupation/Education: retired Gender identity (if verbalized by the patient): Male Spiritual care concerns: No Agree to blood products: Yes Exam Narrative: General: Alert, awake, afebrile, in no acute distress. HEENT: PERRL, no rhinorrhea, no post nasal drip, oropharynx clear. Neck: Trachea midline, no JVD, no lymphadenopathy. Cardiovascular: Regular rate and rhythm, no murmurs, rubs or gallops, no peripheral edema. Respiratory: Clear to auscultation bilaterally, no tachypnea, no wheezing, no rhonchi, no rubs, no respiratory distress. Abdomen: Soft, nontender, nondistended, no rebound, no guarding, no peritoneal signs. Musculoskeletal: No joint swelling or deformity, normal muscle tone. Skin: No rashes or petechia, no signs of infection. Psychiatric: Alert and oriented, normal behavior and judgment for situation. Neurological: Alert and oriented to person, place, and time. Follows all commands. No focal deficits, speech is clear and fluent. Course Vital Signs Vital signs: Vital Signs Temperature 98.1 F 08/14/25 18:56 Pulse Rate 74 08/14/25 18:56 Respiratory Rate 18 08/14/25 18:56 Blood Pressure 154/77 H 08/14/25 18:56 Pulse Oximetry 99 08/14/25 18:56 Oxygen Delivery Room Air 08/14/25 18:56 Temperature 98.1 F 08/14/25 18:56 Pulse Rate 70 08/14/25 23:15 Respiratory Rate 16 08/14/25 23:15 Blood Pressure 152/75 H 08/14/25 23:15 Pulse Oximetry 98 08/14/25 23:15 Oxygen Delivery Room Air 08/14/25 18:56 Medical Decision Making MDM Narrative Medical decision making narrative: The patient was evaluated by myself in the emergency department. History is obtained from patient who is an independent historian and physical exam was performed. External medical records were reviewed at this time. IV was established and pertinent tests were ordered. Patient was administered a full dose oral chewable aspirin. EKG was obtained which revealed sinus rhythm rate of 68 beats per minute, otherwise no evidence of acute ischemia. EKG was independently interpreted by me and is currently pending official cardiology read. Laboratory results obtained revealing an initial elevated troponin of 0.039 with a 3 hour troponin 0.043. Imaging studies obtained included CXR which was independently interpreted by me revealing no acute process, which is pending final radiology interpretation. Differential diagnosis considerations include acute coronary syndrome, STEMI, musculoskeletal strain, hypertensive urgency versus emergency. Comorbidities impacting this visit include history of coronary artery disease. I have evaluated and discussed social determinants of health with the patient that could potentially impact subsequent diagnosis and treatment plans. On repeat assessment of the patient, reevaluation revealed that the patient is doing well and is in no acute distress. Patient symptoms have improved since he arrived to our emergency department. Repeat vital signs were all reviewed and noted to be stable. Differential diagnosis and treatment plan were discussed with the patient at bedside. Patient agrees with discussion and after shared medical decision making agrees with admission. All questions were answered to the patient's satisfaction. Case was discussed with the on-call hospitalist Dr. Dockery at 2320 who accepted admission. Vital Signs Vital Signs: Vital Signs Temperature 98.1 F 08/14/25 18:56 Pulse Rate 74 08/14/25 18:56 Respiratory Rate 18 08/14/25 18:56 Blood Pressure 154/77 H 08/14/25 18:56 Pulse Oximetry 99 08/14/25 18:56 Oxygen Delivery Room Air 08/14/25 18:56 Temperature 98.1 F 08/14/25 18:56 Pulse Rate 70 08/14/25 23:15 Respiratory Rate 16 08/14/25 23:15 Blood Pressure 152/75 H 08/14/25 23:15 Pulse Oximetry 98 08/14/25 23:15 Oxygen Delivery Room Air 08/14/25 18:56 Lab Data 08/14/25 19:05 08/14/25 19:05 Labs: Lab Results 08/14/25 08/14/25 Range/Units 19:05 22:04 WBC 6.9 (4.5-10.0) K/mm3 RBC 4.70 (4.6-6.20) M/mm3 Hgb 14.6 (14.0-18.0) g/dL Hct 43.4 (42.0-52.0) % MCV 92.3 (80-100) fl MCH 31.1 (26-34) pg MCHC 33.6 (32-36) g/dl RDW 14.5 (11.5-14.5) % Plt Count 141 L (150-375) k/mm3 MPV 9.9 (7.4-10.4) fl Immature Gran % (Auto) 0.6 H (0-0.5) % Neut % (Auto) 67.3 (45.5-73.1) % Lymph % (Auto) 18.2 L (18.3-44.2) % [place] % (Auto) 10.1 H (2.6-8.5) % Eos % (Auto) 3.1 (0-4.4) % Baso % (Auto) 0.7 (0.2-1.2) % Lymph # (Auto) 1.25 (0.9-3.2) K/mm3 [place] # (Auto) 0.7 H (0.1-0.6) K/mm3 Eos # (Auto) 0.2 (0-0.3) K/mm3 Baso # (Auto) 0.1 (0.0-0.1) K/mm3 Abs Immat Gran (auto) 0.04 H (0.00-0.031) K/mm3 Absolute Neuts (auto) 4.6 (1.3-6.7) K/mm3 Absolute Nucleated RBC 0.000 (0.0-0.012) K/mm3 Nucleated RBC % 0.0 (0.0-0.2) % PT 13.7 (11.1-14.7) Seconds INR 1.1 APTT 30.6 (22.3-36.8) Seconds Sodium 136 L (137-145) mmol/L Potassium 4.2 (3.4-5.0) mmol/L Chloride 102 (98-107) mmol/L Carbon Dioxide 26 (22-30) mmol/L Anion Gap 8 (4-12) mmol/L BUN 18 (9-20) mg/dL Creatinine 0.97 (0.7-1.3) mg/dL Estim Creat Clear Calc 67 ml/min Estimated GFR > 60 (59 - ) Glucose 140 H (65-110) mg/dL Calcium 10.1 (8.4-10.2) mg/dL Magnesium 1.9 (1.6-2.3) mg/dL Total Bilirubin 0.6 (0.2-1.3) mg/dL AST 38 (17-59) U/L ALT 40 (6-50) U/L Alkaline Phosphatase 93 (38-126) U/L Troponin I 0.039 H* 0.043 H* (0.000-0.034) ng/mL Total Protein 7.6 (6.3-8.2) g/dL Albumin 4.4 (3.5-5.1) g/dL Lipase 160 (23-300) U/L Discharge Plan Discharge Clinical Impression: Arm pain, left, Elevated troponin Patient Disposition: Still a Patient Condition: Improved Patient Language: Japanese Prescriptions: No Action Centrum Silver 1 tab-cap PO DAILY aspirin 325 mg tablet 325 mg PO DAILY testosterone [AndroGel] 20.25 mg/1.25 gram (1.62 %) gel in metered-dose pump 2 pump TOPICAL DAILY Patient Comments: 20.25mg omega-3 fatty acids [Fish Oil Concentrate] 1,000 mg capsule 3,000 mg PO DAILY Rx Instructions: TAKES 2000MG MORNING & 1000MG EVENING (DME) blood-glucose meter [Blood Glucose Monitoring] Kit See Rx Instructions .Route Qty: 1 0RF Rx Instructions: As directed (DME) lancets 23 gauge misc See Rx Instructions .Route Qty: 100 1RF Rx Instructions: As directed cholecalciferol (vitamin D3) 50 mcg (2,000 unit) capsule 50 mcg PO DAILY psyllium husk [Metamucil] 0.52 gram Capsule 1.04 g PO HS Gemtesa 75 mg tablet 75 mg PO DAILY cholecalciferol (vitamin D3) 50 mcg (2,000 unit) capsule 50 mcg PO DAILY amlodipine 10 mg tablet See Rx Instructions .ROUTE .COMPLEX Qty: 90 1RF Dose Instruction: TAKE 1 TABLET BY MOUTH EVERY MORNING AND 1/2 TABLET EVERY EVENING Rx Instructions: TAKE 1 TABLET BY MOUTH EVERY MORNING. metformin 500 mg tablet See Rx Instructions .ROUTE .COMPLEX Qty: 90 1RF Dose Instruction: TAKE 1 TABLET(500 MG) BY MOUTH DAILY WITH THE EVENING MEAL Rx Instructions: TAKE 1 TABLET(500 MG) BY MOUTH DAILY WITH THE EVENING MEAL levothyroxine 100 mcg tablet See Rx Instructions .ROUTE .COMPLEX Qty: 90 1RF Dose Instruction: TAKE 1 TABLET BY MOUTH DAILY Patient Comments: QAM Rx Instructions: TAKE 1 TABLET BY MOUTH DAILY candesartan 32 mg tablet See Rx Instructions .ROUTE .COMPLEX Qty: 90 1RF Dose Instruction: TAKE 1 TABLET BY MOUTH DAILY Patient Comments: QAM Rx Instructions: TAKE 1 TABLET BY MOUTH DAILY carvedilol 25 mg tablet See Rx Instructions .ROUTE .COMPLEX Qty: 180 1RF Dose Instruction: TAKE 1 TABLET BY MOUTH TWICE DAILY Rx Instructions: TAKE 1 TABLET BY MOUTH TWICE DAILY dapaglifloz propaned-metformin 10-1,000 mg tablet, IR - ER, biphasic 24hr 1 tablet PO DAILY Qty: 90 1RF Patient Comments: QAM hydrochlorothiazide 25 mg tablet See Rx Instructions .ROUTE .COMPLEX Qty: 90 1RF Dose Instruction: TAKE 1 TABLET BY MOUTH DAILY Patient Comments: QAM Rx Instructions: TAKE 1 TABLET BY MOUTH DAILY atorvastatin 80 mg tablet See Rx Instructions .ROUTE .COMPLEX Qty: 90 0RF Dose Instruction: TAKE 1 TABLET BY MOUTH DAILY Rx Instructions: TAKE 1 TABLET BY MOUTH DAILY allopurinol 300 mg tablet See Rx Instructions .ROUTE .COMPLEX Qty: 90 1RF Dose Instruction: TAKE 1 TABLET BY MOUTH DAILY Rx Instructions: TAKE 1 TABLET BY MOUTH DAILY (DME) True Metrix Glucose Test Strip Strip See Rx Instructions .ROUTE .COMPLEX Qty: 100 0RF Dose Instruction: USE TO TEST ONCE DAILY DIRECTED BY PRESCRIBER Rx Instructions: USE TO TEST ONCE DAILY DIRECTED BY PRESCRIBER Tradjenta 5 mg tablet See Rx Instructions .ROUTE .COMPLEX Qty: 90 1RF Dose Instruction: TAKE 1 TABLET BY MOUTH IN THE MORNING Rx Instructions: TAKE 1 TABLET BY MOUTH IN THE MORNING celecoxib 200 mg capsule See Rx Instructions .ROUTE .COMPLEX Qty: 60 2RF Dose Instruction: TAKE 1 CAPSULE BY MOUTH TWICE DAILY Rx Instructions: TAKE 1 CAPSULE BY MOUTH TWICE DAILY lorazepam 1 mg tablet 1 mg PO BID PRN (Reason: anxiety) Qty: 60 0RF Follow-up/Referrals: Roberto Saleem MD [Primary Care Provider, Internal Medicine] Time of Disposition: 23:25
[2025-08-15] VITALS (9 sets, daily range): BP systolic 163–171; BP diastolic 74–82; PULSE 62–95; RESP 16–20; TEMP 36.5–36.8; O2SAT 98–100; BMI 35.9
--- NOTE | 2025-08-15 00:22 | ECG_ITS ---
Test Date: 2025-08-15 00:29:01 Measurements Intervals Hunt Rate: 76 P: 0 GA: 0 QRS: -19 QRSD: 200 T: 31 QT: 393 QTc: 442 Interpretive Statements SINUS RHYTHM WITH FIRST DEGREE AV BLOCK CONSIDER ANTERIOR INFARCT, AGE INDETERMINATE INFERIOR INFARCT, AGE INDETERMINATE BASELINE ARTIFACT- I, II, AVR, AVL, AVF, V1-V6 ABNORMAL ECG Compared to ECG 08/14/2025 22:00:14 HEART RATE HAS INCREASED Electronically Signed On 08-15-2025 06:18:46 CDT by Alfredo Contreras D.O.
--- NOTE | 2025-08-15 00:45 | ADMGEN ---
This patient, Reynold Machado, was admitted to IMU Room 203-01 via stretcher with one nurse and no issues. Patient/family oriented to hospital policies and general routines including ID bracelet, bed and alarms, visiting hours, pain management, procedures, bathroom and other care routines, personal items, smoking policy, room service/diet, and visiting hours. Information on how to activate the Rapid Response Team has been discussed. Patient/Family are encouraged to report perceived risks to care and to ask questions if they do not understand what they are told or what they should do.
[2025-08-15 01:13] LABS: Troponin I 0.047 ng/mL (0.000-0.034)
[2025-08-15] MEDS: LORazepam (*CRX) 1 MG TABLET PO (03:06)
--- NOTE | 2025-08-15 04:02 | PM.SD2 ---
Same Day Admit/Disch: HPI History of Present Illness Chief complaint: Left arm tightness Narrative: Reynold Machado is a 84 year old male with a past medical history of gout, essential hypertension, type 2 diabetes mellitus, hypothyroidism coronary artery disease status post stent placement 2004 after abnormal stress test among other comorbidities who presented to the ER with tightness to the left bicep started around 17:00. The patient reported that this sensation was odd so he checked his blood pressure and it was up from his baseline the ER documented that the patient's arm tightness had resolved by the time he came to the ER. The patient actually tells me that the arm tightness seemed to be exacerbated when he was checking his blood pressure. But the tightness never really went away. He reports that it feels like he does needs to stretches arm out. The discomfort is still present but to a lesser extent. He reports that he does standing push ups where he leans against the counter and pushes himself away from the counter 50 times a day. This is routine activity in the unchanged from baseline. He has not been pulling or lifting on any other objects. He denies any known injury. He denies any chest pain, shortness a breath, palpitations, nausea, vomiting lightheadedness. He has not noticed any eliciting or relieving factors. But on further questioning he does sit in hold his I pad in that arm with his arm at a 90 degree angle. He denies any jaw pain or neck pain. He states that he was diagnosed with coronary artery disease after he had a stress test for general wellness check about 20 years ago. He never had an MT or anginal symptoms previously. His EKG in the ER was stable in and unchanged from prior EKGs. He had minimally elevated troponins above cutoff for normal in was admitted for observation. [facility] Past Medical History Medical History (Updated 08/15/25 @ 05:22 by Vee Dockery DO) Lumbosacral radiculopathy at S1 CTS (carpal tunnel syndrome) Chronic pain of right knee Lung nodule Gout Insomnia Ruptured abdominal aortic aneurysm s/p repair, being monitored Testosterone deficiency Chronic low back pain LOUANN (obstructive sleep apnea) On CPAP Hx of transient ischemic attack (TIA) Bladder cancer Hypothyroidism (acquired) History of CVA (cerebrovascular accident) Hearing loss DM type 2 (diabetes mellitus, type 2) DJD (degenerative joint disease), multiple sites Mixed hyperlipidemia Benign essential hypertension ASHD (arteriosclerotic heart disease) Surgical History Surgical History (Updated 08/15/25 @ 05:22 by Vee Dockery DO) Coronary artery disease status post coronary stent insertion (2004) History of bilateral knee replacement History of intravascular stent placement Hx of hernia repair Status post urethral surgery Due to urethral stricture S/P AAA repair History of total hip replacement Family History Family History Father Diabetes mellitus Family history of coronary artery disease Family history of diabetes mellitus in first degree relative Mother Family history of cardiovascular disease Family history of malignant neoplasm of brain Family history of heart disease in male family member before age 55 Social History Social History (Updated 08/15/25 @ 05:12 by Vee Dockery DO) Social History: The patient was for 53 years but been since proximally 2022. He and his raised 1 son. 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 He used to smoke approximately 1.5 packs of cigarettes per day but quit smoking in 2004. He drinks 1 alcoholic beverage a day. He denies illicit substance use. Code status: Full code (patient does not have formal advanced directives in place. He states that he would not want long-term ventilator support or a feeding tube) Surrogate decision maker: Son Smoking packs per day: 2 Smoking cigarettes per day: 40.0 Years smoked: 40 Smoking pack-years: 80.00 Smoking status: Former smoker Tobacco type: cigarettes Second hand tobacco smoke exposure: Yes Smoking end date: 11/01/04 Alcohol intake: current Drinks per week: 14 Alcohol use details: Daily; COCKTA[employer]S [employer] WINE Substance use: never Substance use type: does not use Do You Feel Safe in your Home?: Yes Lack of Transportation: No Lack of Food: Never True Current Housing: I Have Housing Concerned About Future Housing: No Difficulty Paying Gas/Electric Bills: No Difficulty Paying for Meds: No Currently Unemployed: No Education: Master's Degree or Higher Difficulty w/ Childcare or Family Care: No Living arrangements: alone Occupation/Education: retired Gender identity (if verbalized by the patient): Male Spiritual care concerns: No Agree to blood products: Yes Same Day Admit/Disch: Med Pre-admit Medications Home Medications ?Medication ?Instructions ?Recorded ?Confirmed ?Type testosterone (AndroGel) 2 pump topical DAILY 09/05/19 08/15/25 History aspirin 325 mg tablet 325 mg PO HS 11/27/19 08/15/25 History Centrum Silver 1 tab-cap PO DAILY 04/23/20 08/15/25 History omega-3 fatty acids 1,000 mg 2,000 mg PO DAILY 05/16/20 08/15/25 History capsule (Fish Oil Concentrate) psyllium husk 0.52 gram capsule 1.04 g PO HS 02/20/21 08/15/25 History (Metamucil) blood-glucose meter (Blood Glucose #1 ea 11/04/22 08/15/25 Rx Monitoring kit) lancets 23 gauge #100 ea 11/04/22 08/15/25 Rx vibegron 75 mg tablet (Gemtesa) [address] Fajardo 09/08/23 08/15/25 History cholecalciferol (vitamin D3) 50 50 mcg PO DAILY 10/13/23 08/15/25 History mcg (2,000 unit) capsule dapagliflozin propaned 10 1 tablet PO DAILY #90 tabs 06/29/25 08/15/25 Rx mg-metformin ER 1,000 mg tablet,ext rel 24hr blood sugar diagnostic (True #100 strips 07/19/25 08/15/25 Rx Metrix Glucose Test Strip) lorazepam 1 mg tablet 1 mg PO BID PRN anxiety #60 tabs 08/07/25 08/15/25 Rx allopurinol 300 mg tablet 300 mg PO DAILY 08/15/25 08/15/25 History amlodipine 10 mg tablet 10 mg PO DAILY 08/15/25 08/15/25 History atorvastatin 80 mg tablet 80 mg PO DAILY 08/15/25 08/15/25 History candesartan 32 mg tablet 32 mg PO DAILY 08/15/25 08/15/25 History carvedilol 25 mg tablet 25 mg PO DAILY 08/15/25 08/15/25 History celecoxib 200 mg capsule 200 mg PO Q12H 08/15/25 08/15/25 History hydrochlorothiazide 25 mg tablet 25 mg PO DAILY 08/15/25 08/15/25 History levothyroxine 100 mcg tablet 100 mcg PO DAILY 08/15/25 08/15/25 History linagliptin 5 mg tablet (Tradjenta) 5 mg PO DAILY 08/15/25 08/15/25 History metformin 500 mg tablet 500 mg PO HS 08/15/25 08/15/25 History omega-3 fatty acids 1,000 mg 1,000 mg PO HS 08/15/25 08/15/25 History capsule Review of Systems Review of Systems 12 systems were reviewed with pertinent positives and negatives per HPI. Except as documented in the HPI, all other systems were reviewed and are negative. Exam Narrative: Weight 118 kg BMI 36.3 Const: Other: No acute distress, obese, appears stated age HENMT: Other: Head is normocephalic atraumatic, mucous membranes are tacky, no oral pharyngeal erythema, crowded posterior oropharynx Eyes: Other: Pupils are equal and reactive with bilateral lens implants noted, no scleral icterus Neck: Other: Large neck circumference, no JVD, no lymphadenopathy Resp: Other: Clear to auscultation bilaterally, no increased work of breathing Cardio: Other: Regular rate, regular rhythm, 2+ bilateral radial pedal pulses, no murmurs, no JVD GI: Other: Obese, soft, nontender, normoactive bowel sounds Skin: Other: No jaundice, no pallor Neuro: Other: Alert oriented x4, speech is clear, no facial asymmetry Extrem: Other: No clubbing, cyanosis or edema, moves all extremities equally, no reproducible pain to palpation of the left bicep. Normal range of motion of the left shoulder and elbow Psych: Other: Appropriate mood and affect, pleasant and cooperative, judgment and insight intact DS: Data Data Completed and Pending Labs on day of discharge: Laboratory Tests 08/14/25 19:05 08/14/25 19:05 08/14/25 08/14/25 08/15/25 19:05 22:04 00:37 WBC 6.9 RBC 4.70 Hgb 14.6 Hct 43.4 MCV 92.3 MCH 31.1 MCHC 33.6 RDW 14.5 Plt Count 141 L MPV 9.9 Immature Gran % (Auto) 0.6 H Neut % (Auto) 67.3 Lymph % (Auto) 18.2 L Shannon % (Auto) 10.1 H Eos % (Auto) 3.1 Baso % (Auto) 0.7 Lymph # (Auto) 1.25 Shannon # (Auto) 0.7 H Eos # (Auto) 0.2 Baso # (Auto) 0.1 Abs Immat Gran (auto) 0.04 H Absolute Neuts (auto) 4.6 Absolute Nucleated RBC 0.000 Nucleated RBC % 0.0 PT 13.7 INR 1.1 APTT 30.6 Sodium 136 L Potassium 4.2 Chloride 102 Carbon Dioxide 26 Anion Gap 8 BUN 18 Creatinine 0.97 Estim Creat Clear Calc 67 Estimated GFR > 60 Glucose 140 H POC Capillary Glucose Calcium 10.1 Magnesium 1.9 Total Bilirubin 0.6 AST 38 ALT 40 Alkaline Phosphatase 93 Troponin I 0.039 H* 0.043 H* 0.047 H* Total Protein 7.6 Albumin 4.4 Lipase 160 08/15/25 01:42 WBC RBC Hgb Hct MCV MCH MCHC RDW Plt Count MPV Immature Gran % (Auto) Neut % (Auto) Lymph % (Auto) Shannon % (Auto) Eos % (Auto) Baso % (Auto) Lymph # (Auto) Shannon # (Auto) Eos # (Auto) Baso # (Auto) Abs Immat Gran (auto) Absolute Neuts (auto) Absolute Nucleated RBC Nucleated RBC % PT INR APTT Sodium Potassium Chloride Carbon Dioxide Anion Gap BUN Creatinine Estim Creat Clear Calc Estimated GFR Glucose POC Capillary Glucose 123 H Calcium Magnesium Total Bilirubin AST ALT Alkaline Phosphatase Troponin I Total Protein Albumin Lipase 08/15/25 08/15/25 08/14/25 01:42 00:37 22:04 WBC RBC Hgb Hct MCV MCH MCHC RDW Plt Count MPV Immature Gran % (Auto) Neut % (Auto) Lymph % (Auto) Shannon % (Auto) Eos % (Auto) Baso % (Auto) Lymph # (Auto) Shannon # (Auto) Eos # (Auto) Baso # (Auto) Abs Immat Gran (auto) Absolute Neuts (auto) Absolute Nucleated RBC Nucleated RBC % PT INR APTT Sodium Potassium Chloride Carbon Dioxide Anion Gap BUN Creatinine Estim Creat Clear Calc Estimated GFR Glucose POC Capillary Glucose 123 H Calcium Magnesium Total Bilirubin AST ALT Alkaline Phosphatase Troponin I 0.047 H* 0.043 H* Total Protein Albumin Lipase 08/14/25 19:05 WBC 6.9 RBC 4.70 Hgb 14.6 Hct 43.4 MCV 92.3 MCH 31.1 MCHC 33.6 RDW 14.5 Plt Count 141 L MPV 9.9 Immature Gran % (Auto) 0.6 H Neut % (Auto) 67.3 Lymph % (Auto) 18.2 L Shannon % (Auto) 10.1 H Eos % (Auto) 3.1 Baso % (Auto) 0.7 Lymph # (Auto) 1.25 Shannon # (Auto) 0.7 H Eos # (Auto) 0.2 Baso # (Auto) 0.1 Abs Immat Gran (auto) 0.04 H Absolute Neuts (auto) 4.6 Absolute Nucleated RBC 0.000 Nucleated RBC % 0.0 PT 13.7 INR 1.1 APTT 30.6 Sodium 136 L Potassium 4.2 Chloride 102 Carbon Dioxide 26 Anion Gap 8 BUN 18 Creatinine 0.97 Estim Creat Clear Calc 67 Estimated GFR > 60 Glucose 140 H POC Capillary Glucose Calcium 10.1 Magnesium 1.9 Total Bilirubin 0.6 AST 38 ALT 40 Alkaline Phosphatase 93 Troponin I 0.039 H* Total Protein 7.6 Albumin 4.4 Lipase 160 EKG:Test Date: 2025-08-15 00:29:01 Measurements Intervals [place] Rate: 76 P: 0 MO: 0 QRS: -19 QRSD: 200 T: 31 QT: 393 QTc: 442 Interpretive Statements SINUS RHYTHM WITH FIRST DEGREE AV BLOCK CONSIDER ANTERIOR INFARCT, AGE INDETERMINATE INFERIOR INFARCT, AGE INDETERMINATE BASELINE ARTIFACT- I, II, AVR, AVL, AVF, V1-V6 ABNORMAL ECG Compared to ECG 08/14/2025 22:00:14 HEART RATE HAS INCREASED DS: Summary Hospital Course Reason for hospitalization: Left arm pain, elevated troponins Hospital Course: The patient was admitted for further evaluation to rule out anginal equivalent with left arm pain. Upon further questioning the patient's discomfort is more of a tightness and is localized to the biceps area. His troponins were elevated but essentially flat and EKGs unchanged from baseline. The patient admits that he hold his iPad in that arm. And likely as muscle tightness due to prolonged isotonic contraction. He did not have any alarm signs or symptoms to suggest acute cardiac ischemic event. The patient's blood pressures have been elevated since admission and have gotten progressively higher throughout the course of the night. He states that his evening Coreg was stopped a few months ago by his primary care doctor. The patient's blood pressure could be elevated due to being in the hospital and structure over the hospital stay verses being elevated due to half life of Coreg not being adequate to keep his blood pressure controlled for 24 hour interval. Will plan to change the patient's Coreg back to q.12 hours dosing. Patient should keep a log of his blood pressures morning and evening until he follows up with Dr. Roberto Saleem and he should bring this log of blood pressures with him to his follow-up appointment. Patient has been given instructions for concerning symptoms for which to return to the ER. Patient verbalized understanding. Status at Discharge Cognitive/behavioral status at discharge: Normal baseline Functional status at discharge: independent ambulation Overall status at discharge: patient is back to baseline Time Spent with Patient Time attestation: Total time spent providing and/or coordinating discharge services: 45 minutes DS: Admitting Diagnosis Discharge Date 08/15/2025 Admitting Diagnosis Left arm pain, elevated troponin DS: Discharge Diagnosis Discharge Diagnosis (1) Elevated troponin: Code(s): R79.89 - Other specified abnormal findings of blood chemistry Status: Acute (2) Arm pain, left: Code(s): M79.602 - Pain in left arm Status: Acute (3) Uncontrolled hypertension: Code(s): I10 - Essential (primary) hypertension Status: Acute Discharge Plan Discharge Attending physician on discharge: Vee Dockery Discharging Clinician: Vee Dockery Anticipated Discharge Date/Time: 08/15/25 06:05 Patient Disposition: Home Activity: as tolerated Diet: heart healthy and diabetic Discharge Instructions: Call your primary care physician to arrange follow-up. Return to the ER if he develops chest pressure, chest pain, severe shortness of breath, shortness of breath with exertion, unexplained sweats, heart racing/palpitations, new onset unexpected lower extremity swelling, fevers, jaw pain, neck pain or otherwise concerned. Your blood pressure was uncontrolled. I recommend you start taking your Coreg twice daily instead of once daily. Keep a log of your blood pressures both morning and evening and take this log to your follow-up appointment with your primary care physician. Patient Language: Indian Stand Alone Forms: General Discharge Information Follow-up/Referrals: Roberto Saleem MD [Primary Care Provider, Internal Medicine] - Call for Appointment Discharge Medications: New carvedilol [Coreg] 25 mg Tablet 25 mg PO Q12HR Qty: 60 0RF Continued Centrum Silver 1 tab-cap PO DAILY aspirin 325 mg tablet 325 mg PO HS testosterone [AndroGel] 20.25 mg/1.25 gram (1.62 %) gel in metered-dose pump 2 pump TOPICAL DAILY Patient Comments: 20.25mg omega-3 fatty acids [Fish Oil Concentrate] 1,000 mg capsule 2,000 mg PO DAILY Patient Comments: Takes 2,000mg in the morning and 1,000mg HS Rx Instructions: TAKES 2000MG MORNING & 1000MG EVENING (DME) blood-glucose meter [Blood Glucose Monitoring] Kit See Rx Instructions .Route Qty: 1 0RF Rx Instructions: As directed (DME) lancets 23 gauge misc See Rx Instructions .Route Qty: 100 1RF Rx Instructions: As directed omega-3 fatty acids 1,000 mg capsule 1,000 mg PO HS celecoxib 200 mg capsule 200 mg PO Q12H metformin 500 mg tablet 500 mg PO HS Patient Comments: pt takes with evening meal atorvastatin 80 mg tablet 80 mg PO DAILY levothyroxine 100 mcg tablet 100 mcg PO DAILY Patient Comments: QAM amlodipine 10 mg tablet 10 mg PO DAILY Rx Instructions: TAKE 1 TABLET BY MOUTH EVERY MORNING. candesartan 32 mg tablet 32 mg PO DAILY Patient Comments: QAM allopurinol 300 mg tablet 300 mg PO DAILY Rx Instructions: TAKE 1 TABLET BY MOUTH DAILY hydrochlorothiazide 25 mg tablet 25 mg PO DAILY Patient Comments: QAM Tradjenta 5 mg tablet 5 mg PO DAILY psyllium husk [Metamucil] 0.52 gram Capsule 1.04 g PO HS Gemtesa 75 mg tablet 75 mg PO DAILY cholecalciferol (vitamin D3) 50 mcg (2,000 unit) capsule 50 mcg PO DAILY dapaglifloz propaned-metformin 10-1,000 mg tablet, IR - ER, biphasic 24hr 1 tablet PO DAILY Qty: 90 1RF Patient Comments: QAM (DME) True Metrix Glucose Test Strip Strip See Rx Instructions .ROUTE .COMPLEX Qty: 100 0RF Dose Instruction: USE TO TEST ONCE DAILY DIRECTED BY PRESCRIBER Rx Instructions: USE TO TEST ONCE DAILY DIRECTED BY PRESCRIBER lorazepam 1 mg tablet 1 mg PO BID PRN (Reason: anxiety) Qty: 60 0RF Discontinued carvedilol 25 mg tablet 25 mg PO DAILY Date of admission: 08/14/25 23:23 Primary Care Provider: Roberto Saleem Admitting Provider: Vee Dockery Attending physician on admission: Vee Dockery Condition: Improved Quality VTE Prophylaxis VTE prophylaxis: pharmacologic ordered (Lovenox 40 mg subQ daily) Hospitalist MIPS Advance Care Plan I have confirmed that the patient's Advanced Care Plan is present, code status is documented, or surrogate decision maker is listed in patient medical record.: Yes Medication Reconciliation I have utilized all available resources to obtain, update and review the patients current medications (includes all prescriptions, OTC, herbals, cannabis, and nutritional supplements).: Yes Heart Failure (Exclusion) Patient has history of Heart Transplant or Left Ventricular Assistive Device?: No IF YES, STOP HERE Heart Failure (Qualifier) Patient has current or prior documentation of LVEF less than or equal to 40%, or mod/servere depressed LVSF?: No IF NO, STOP HERE
[2025-08-15 06:01] LABS: Troponin I 0.043 ng/mL (0.000-0.034)
[2025-08-15] MEDS: LEVOTHYROXINE SODIUM 100 MCG TABLET PO (06:15)
[2025-08-15] MEDS: ATORVASTATIN 40 MG TABLET 80 MG PO (08:11)
[2025-08-15] MEDS: CANDESARTAN CILEXETIL 16 MG TABLET 32 MG PO (08:12)
[2025-08-15] MEDS: OMEGA 3 POLYUNSAT FATTY ACIDS 1 GM CAP 2 GM PO (08:12)
--- NOTE | 2025-08-15 09:09 | PC.NURSE ---
patient discharged home in personal vehicle. Denies chest pain or discomfort his morning. Reviewed all discharge instructions with patient and denies questions or concerns at this time. Discussed home medications and patient verbalized understanding at this time. No acute distress noted at this time.
--- OUTSIDE RECORDS SUMMARY | 2025-08-15 10:06 | XMS_ITS | Clinical Summary ---
Author Organization [facility] Address [address] [place] [address] Care Team Providers Care Chemical Strength Tester Name Role Phone Roberto Saleem MD Primary Care Provider [phone] Source Comments [facility] Affiliates and Associated Physician Practices is amultiple site organization consisting of ambulatory clinics and hospital sitesin [place], [place], [place] and [place]. This disclosure is being madepursuant to the Care Everywhere program and may not contain all information available regarding this patient. 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 Pulse 61 11/09/2013 9:56 AM [employer] 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 Temperature - - Respiratory Rate 18 11/09/2013 9:56 AM [employer] 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 Oxygen Saturation - - Inhaled Oxygen Concentration - - Weight 142.9 kg (315 lb) 11/09/2013 9:56 AM [employer]ER[employer] 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 Height - - Body Mass Index - [...] REYEZ Subscriber ID:Not on file Address: [address] [place] [address] Payer ID:Not on file Group ID:Not on file Type:Self Pay Address: [place], [place] [employer]V SELF PAY NO INSURANCE Member Subscriber Plan / Payer (Ef fective for All Dates) Name:Reynold Reyez Member ID:Not on file Relation to Subscriber:Not on file Name:REYNOLD REYEZ Subscriber ID:Not on file Address: [place] [address] Payer ID:Not on file Group ID:Not on file Type:Self Pay Address: [place], [place] [employer] ADV SELF PAY NO INSURANCE Member Subscriber Plan / Payer (Ef fective for All Dates) Name:Reynold Reyez Member ID:Not on file Relation to Subscriber:Not on file Name:REYNOLD REYEZ Subscriber ID:Not on file Address: [address] [place] [address] Payer ID:Not on file Group ID:Not on file Type:Self Pay Address: [place], [place] [employer] SELF PAY NO INSURANCE Member Subscriber Plan / Payer (Ef fective for All Dates) Name:Reynold Reyez Member ID:Not on file Relation to Subscriber:Not on file Name:REYNOLD REYEZ Subscriber ID:Not on file Address: [address] [place] [address] Payer ID:Not on file Group ID:Not on file Type:Self Pay Address: [place], [place] [employer] SELF PAY NO INSURANCE Member Subscriber Plan / Payer (Ef fective for All Dates) Name:Reynold Reyez Member ID:Not on file Relation to Subscriber:Not on file Name:DREEJEREYNOLD Subscriber ID:Not on file Address: [place] [address] Payer ID:Not on file Group ID:Not on file Type:Self Pay Address: [place], [place] [employer] AD[employer] SELF PAY NO INSURANCE Member Subscriber Plan / Payer (Ef fective for All Dates) Name:EfrainharrisonReynold jalloh Member ID:Not on file Relation to Subscriber:Not on file Name:DEREJEBRENNENREYNOLD Subscriber ID:Not on file Address: [place] [address] Payer ID:Not on file Group ID:Not on file Type:Self Pay Address: [place], [place] Care Teams Chemical Strength Tester Relationship Specialty Start Date End Date Roberto Saleem MD [address] [place] [id number] PCP - General 12/25/10
--- OUTSIDE RECORDS SUMMARY | 2025-08-15 10:06 | XMS_ITS | Clinical Summary ---
Author Organization [facility] Office Center Address [address] [place] [address] Care Team Providers Care Negative Stripper Name Role Phone Nomi Moore MD PhD Unavailable [phone] Roberto Saleem MD Primary Care Provider [phone] Spencer Fulton MD Unavailable [phone] Allergies Active Allergy Reactions Criticality Noted Date Comments Lisinopril Cough Low 10/21/2021 Morphine Itching Medium 10/21/2021 Oxycodone Mental status changes,Delusions Medium 04/2024 Medications hydroCHLOROthia zide (HYDRODIURIL) 25 mg tablet Take 1 tablet (25 mg total) by mouth every morning Active levothyroxine (SYNTHROID) 100 mcg tablet Take 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 Tompkins Encounters Date Type Department Care Team Description 07/12/2025 8:45 AM CDT Office Visit [facility] Vascular and Vein Surgery [facility] [address] [place] [address] Benita Mcgovern PA Infrarenal abdominal aortic aneurysm (AAA) without rupture (Primary Dx); Hypertension, unspecified type; Type 2 diabetes mellitus with other specified complication, without long-term current use of insulin 07/12/2025 7:42 AM CDT - 07/12/2025 11:59 PM CDT Hospital Encounter [facility] Medical Office Building [address] [place] [address] [address] [place] [address] Infrarenal abdominal aortic aneurysm (AAA) without rupture Discharge Disposition: Discharge to home or self care 05/30/2025 10:15 AM CDT Office Visit [facility] Cardiology [address] [place] [address] Ab Mo MD Coronary artery disease involving pit river coronary artery of pit river heart without angina pectoris (Primary Dx); S/P [...] Coronary artery disease 2005 stent pl aced Griswold's by Dr. Tompkins Cataract Hyperlipidemia Gout Sleep [...] on file Legal Sex Male 12:37 PM DIRECTOR OF AUDIOLOGY Gender Identity Male 02/02/2022 11:05 AM CDT Sexual Orientation Straight 02/02/2022 11 :05 AM CDT Obstetrics History Last Filed Vital Signs Vital Sign Reading Time Taken Comments Blood Pressure 164/70 07/12/2025 8:39 AM CDT Pulse 69 07/12/2025 8:39 AM CDT Temperature 36.6 C (97.9 F) 10/07/2024 8:35 AM DIRECTOR OF AUDIOLOGY Respiratory Rate 18 10/07/2024 8:35 AM DIRECTOR OF AUDIOLOGY Oxygen Saturation 96% 05/30/2025 10:17 AM CDT [...] 08/05/2018, 10/01/2009 Medical Devices Implanted Type Area Poundmaster Device Identifier Shelf Expiration Date Model / Serial / Lot Total Hip Bilatera l: Hip [employer] Triathlon Tritanium Knee 7 Baseplate Tibial 5536-B-700 - [id number] Implanted:Qty: 1 on 01/20/2024 by Spencer Fulton MD at [facility] Right: Knee [employer] [id number] 09/27/2028 5536-B-70 0 / / [id number] [employer] Triathlon Cruciate Retain Bead Knee Right 7 Component Femoral Pa 5517-F-702 - [id number] Implanted:Qty: 1 on 01/20/2024 by Spencer Fulton MD at [facility] Right: Knee [employer] [id number] 11/04/2027 5517-F-70 2 / / [id number] [employer] Tritanium 38mm 11mm Asymmetric Knee Component Patellar Metal 5552-L-381 - [id number] Implanted:Qty: 1 on 01/20/2024 by Spencer Fulton MD at [facility] Right: Knee [employer] [id number] 12/11/2025 5552-L-38 1 / / [id number] [employer] Insert Tibial Triathlon 7 H9mm Knee Bearing Condylar Stabilize Sterile 5730-X-405-E - [id number] Implanted:Qty: 1 on 01/20/2024 by Spencer Fulton MD at [facility] Right: Knee [employer] [id number] 08/14/2028 5531-G-70 9-E / / [id number] [employer] Tritanium 38mm 11mm Asymmetric Knee Component Patellar Metal 5552-L-381 - [id number] Implanted:Qty: 1 on 10/06/2024 by Spencer Fulton MD at [facility] Left: Knee [employer] [id number] 07/16/2029 5552-L-38 1 / / [id number] [employer] Triathlon Cruciate Retain Bead Knee Left 8 Component Femoral Pa 5517-F-801 - [id number] Implanted:Qty: 1 on 10/06/2024 by Spencer Fulton MD at [facility] Left: Knee [employer] [id number] 07/15/2027 5517-F-80 1 / / [id number] [employer] Insert Tibial Triathlon 7 H10mm Knee Bearing Condylar Stabilize Sterile 3617-P-337-E - [id number] Implanted:Qty: 1 on 10/06/2024 by Spencer Fulton MD at [facility] Left: Knee [employer] [id number] 05/18/2029 5531-G-71 0-E / / [id number] [employer] Triathlon Tritanium Knee 7 Baseplate Tibial 5536-B-700 - [id number] Implanted:Qty: 1 on 10/06/2024 by Spencer Fulton MD at [facility] Left: Knee [employer] [id number] 07/27/2029 5536-B-70 0 / / [id number] Procedures Procedure Name Priority Date/Time Associated Diagnosis [...] Study Date: 07/12/2025 8:10:53 AM Gender: M Band Tumbler: Dewayne Provider: TED ENRIQUE Quality: Adequate Order [...] Study Date: 07/12/2025 8:10:53 AM Gender: M Band Tumbler: Dewayne Provider: TED ENRIQUE Quality: Adequate Order [...] CDT) 05/30/2025 10:2 9 AM CDT Result [facility] Ab Mo MD ECG ORDERABLES Edited [...] blood 05/30/2025 1 0:28 AM CDT Result [facility] Ab Mo MD POINT OF CARE TEST [...] RUBIO LAB BLOOD ORDERABLES Fin al Result [facility] [address] Department [place] [address] * (ABNORMAL) Hemoglobin A1c (08/24/2024 11:09 AM CDT) Hgb A1C 7.0(H) 4.0 - 5.6 % Estimated Average Glucose 154 mg/dL [facility] Comment: The ADA recommends reporting an estimated Average Glucose (eAG) with all Hemoglobin A1c results using the equation derived from a study of 507 normal and diabetic adults. Minority populations were underrepresented and children were not included. (Diabetes Care 31:6081-3045, 2008). The eAG is not equivalent to a fasting glucose. Blood 08/24/2024 11:0 9 AM CDT 08/24/2024 11:09 AM CDT Tabby RUBIO LAB BLOOD ORDERABLES Fin al Result [facility] [address] Department [place] [address] from Last 3 Months or Most Recently Relevant to Health Maintenance Insurance [facility] MEDICARE ADVANTAGE [facility] MEDICARE [facility] MEDICARE UHC MEDICARE [facility]ANT[facility]NA MEDICARE Address: [address] [place] [address] Advance Directives For more information, please contact: [phone] Documents on File Type Date Recorded 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 Expl anation ADVANCE DIRECTIVE 01/25/2024 2:02 AM 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 * Full Code (Latest Code Status on File) Date Activated Date Inactivated Comments 10/06/2024 6:40 PM 10/07/2024 3:38 PM * Full Code Date Activated Date Inactivated Comments 01/20/2024 12:53 PM 01/21/2024 4:25 PM * Full Code Date Activated Date Inactivated Comments 10/31/2019 7:01 PM 11/01/2019 6:11 PM Care Teams Negative Stripper Relationship Specialty Start Date End Date Roberto Saleem MD [address] [facility] [address] [place] [address] PCP - General 10/31/19 Nomi Moore MD PhD [address] [facility] [address] [place] [address] Consulting Physician Neurology 11/01/19 Spencer Fulton MD [address] [facility] [address] [place] [address] Consulting Physician Orthopedic Surgery 10/26/23
--- OUTSIDE RECORDS SUMMARY | 2025-08-15 10:06 | XMS_ITS | Clinical Summary ---
Author Organization [facility] Nila García Address [address] [place] [address] Care Team Providers Care Warp Yarn Sorter Name Role Phone Unavailable Primary Care Provider [...] Abstract 07/20/2025 12:30 PM CDT Office Visit [facility] Oncology and Hematology [facility] [address] [place] [address] Scott Del Castillo MD Mass of left lung (Primary Dx) 07/17/2025 External Device Data STL ABSTRACTION Provider, Abstract 07/17/2025 External Device Data STL ABSTRACTION Provider, Abstract 07/13/2025 6:20 AM CDT - 07/13/2025 12:07 PM CDT Hospital Encounter [place] [address] [place] [id number] Scott Del Castillo MD , [facility] Mass of left lung Discharge Disposition: Home or Self Care 07/04/2025 External Device Data STL ABSTRACTION Provider, Abstract 07/03/2025 External Device Data STL ABSTRACTION Provider, Abstract 07/03/2025 External Device Data STL ABSTRACTION Provider, Abstract 06/28/2025 3:00 PM CDT Office Visit [facility] Oncology and Hematology - [place] [address] [place] [address] Scott Del Castillo MD Mass of left lung (Primary Dx) 06/28/2025 Orders Only [facility] Oncology and Hematology - [place] [address] [place] [address] Scott Del Castillo MD Mass [...] st Contact Info) Description 10/19/2025 11:00 AM [employer]VER[employer] 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 DICTATION LOCATION: Location 1 - [facility] 07/13/2025 11:30 AM CDT EXAMINATION: X-RAY CHEST [...] IMPRESSION: 1. No pneumothorax. DICTATION LOCATION: Location [address] [place] [address] Lazarus Laurent MD DIAGNOSTIC IMAGING ORDERABLES Final Result * CT BIOPSY LUNG LEFT (07/13/2025 8:55 AM CDT) Anatomical Region Laterality Modality Chest Computed Tomogra phy 07/13/2025 8:37 AM CDT Impressions 07/13/2025 4:20 PM CDT IMPRESSION: Successful core needle biopsy of lung using CT guidance. DICTATION LOCATION: Location [address] [place] [address] Narrative 07/13/2025 4:20 PM CDT EXAMINATION: CORE NEEDLE BIOPSY OF LUNG USING CT GUIDANCE DATE: 07/13/2025 8:55 AM HISTORY: 84 years-old Male with left upper lobe pulmonary nodule. ANESTHESIA: The procedure was performed with local anesthesia. PHYSICIAN(S): Dr. Lazarus Laurent MD TECHNIQUE: The risks, benefits and alternatives were discussed and informed consent was obtained. Prior to beginning the procedure, [place] Protocol was performed to confirm the patient's [...] was obtained. Prior to beginning the procedure, [place] Protocol was performed to confirm the patient's [...] CT guidance. DICTATION LOCATION: Location 1 - [facility] Scott Del Castillo MD CT ORDERABLES Final Result * PATHOLOGY (07/13/2025 8:44 AM CDT) CASE REPORT Surgical Pathology Report Case: [id number] Authorizing Provider: Lazarus Laurent MD Collected: 07/13/2025 08:44 AM Ordering Location: [facility] Received: 07/13/2025 01:58 PM Aamir Pathologist: Lori Dugan MD Specimen: Lung, KARINA 12:13 PM CDT [facility] FINAL DIAGNOSIS Lung, left upper lobe, biopsy: - Benign alveolar lung parenchyma, 2-minute fragments of (see microscopic description). 12:13 PM CDT [facility] SERVICES [facility] at 1212 CDT GROSS DESCRIPTION Received [...] survive processing. ELH 5 12:13 PM T [facility] MICROSCOPIC DESCRIPTION Received are slides labeled [id number], Reynold Machado. The submitted lung, KARINA contain 2-minute pieces of alveolar lung parenchyma, with no significant histologic abnormalities. A distinct lesion or mass is not identified.. There is no evidence of malignancy, supported by TTF-1 and pancytokeratin staining pattern; however, the specimen is quite limited and likely not community relations representative of the radiographic noted lesion or sufficient for diagnosis. Clinical correlation with appropriate follow-up is recommended. Deeper levels were examined. 5 12:13 PM T [facility] OPERATIVE PROCEDURE CT GUIDED LUNG BIOPSY 5 12:13 PM [facility] CLINICAL INFORMATION LUNG MASS 5 12:13 PM [facility] COMMENT Special stain, immunohistochemical, and/or in situ hybridization results are interpreted with controls that demonstrate appropriate staining reactions. Note on use of immunohistochemistry reagents and in situ hybridization probes: These tests were developed and their performance characteristics determined by [facility], Department of Laboratory Medicine. It has [...] part or completely in the following laboratories: [facility], CLIA #[id number] [address] [place] [address] [facility], CLIA #[id number] [address] [place] [address] [facility], CLIA #[id number] [address] [facility] [place] [address] This report was created with the [employer] voice-activated dictation system. Inherent to this system is the possibility of syntax, grammar, punctuation and other errors that could impact the interpretation of the report. If there are interpretative questions about aspects of this report, please contact the performing pathologist. 12:13 PM CDT [facility] Tissue (Lung, KARINA) Collection / Unknown 07/13/2025 8:44 AM CDT 07/13/2025 1:58 PM CDT Comment:Please CC William Del Castillo ed, Scott Lira MD Lazarus Laurent MD PATHOLOGY/CYTOLOGY ORDERABLES Final Result [facility]# [id number] [address] [place] [address] * (ABNORMAL) CBC WITH DIFFERENTIAL (07/13/2025 6:48 AM CDT) WBC 6.3 4.0 - 9.8 K/uL 07/13/2025 7:16 AM CDT [facility] RBC 4.30(L) 4.50 - 5.40 M/uL 07/13/2025 7:16 AM CDT [facility] HEMOGLOBIN 13.4(L) 13.6 - 16.5 g/dL 07/13/2025 7:16 AM CDT [facility] HEMATOCRIT 39.9(L) 40.0 - 48.0 % 07/13/2025 7:16 AM CDT [facility] MCV 92.8 82.0 - 99.0 fL 07/13/2025 7:16 AM CDT [facility] MCH 31.2 27.2 - 32.6 pg 07/13/2025 7:16 AM CDT [facility] MCHC 33.6 31.5 - 35.5 g/dL 07/13/2025 7:16 AM CDT [facility] RDW 15.2(H) 11.5 - 14.5 % 07/13/2025 7:16 AM [employer] RDW-STDEV 52.1(H) 37.1 - 48.7 fL 07/13/2025 7:16 AM [facility] PLATELETS 143 140 - 350 K/uL 07/13/2025 7:16 AM [facility] MPV 10.1 9.3 - 12.4 fL 07/13/2025 7:16 AM [facility] NEUTROPHILS 65 % 07/13/2025 7:16 AM [facility] LYMPHOCYTES 21 % 07/13/2025 7:16 AM [facility] MONOCYTES 11 % 07/13/2025 7:16 AM [facility] EOSINOPHILS 2 % 07/13/2025 7:16 AM [facility] BASOPHILS 1 % 07/13/2025 7:16 AM [facility] IMMATURE GRANULOCYTES 1 % 07/13/2025 7:16 AM [facility] Comment:IG (Immature Granulo cyte) count includes Metamyelocytes, Myelocytes, and Promyelocytes NEUTROPHIL ABSOLUTE 4.10 1.90 - 7.00 K/uL 07/13/2025 7:16 AM [facility] LYMPHOCYTE ABSOLUTE 1.30 0.70 - 4.50 K/uL 07/13/2025 7:16 AM [facility] MONOCYTE ABSOLUTE 0.72 0.10 - 1.30 K/uL 07/13/2025 7:16 AM [facility] EOSINOPHIL ABSOLUTE 0.12 0.00 - 0.70 K/uL 07/13/2025 7:16 AM [facility] BASOPHILS ABSOLUTE 0.03 0.00 - 0.20 K/uL 07/13/2025 7:16 AM [facility] IMMATURE GRANULOCYTES ABSOLUTE 0.03 0.00 - 0.03 K/uL 07/13/2025 7:16 AM CDT [facility] Blood Venipuncture / Unknown 07/13/2025 6:48 AM CDT 07/13/2025 6:57 AM CDT Ceci Rao MD HEMATOLOGY ORDERABLES Final Resu lt [facility] SERVICES [facility] CLIA# [id number] [address] [place] [address] from Last 3 Months Insurance [facility]
== END 2025-08-15 09:05 | disposition home or self-care (01) ==
LOC: ANHED 23:28 → ANHIMU 08-15 04:05
PROVIDERS: Student in an Organized Health Care Education/Training Program; Admitting Provider Internal Medicine; Emergency Provider Emergency Medicine; PCP Internal Medicine; Visit Provider Internal Medicine
DX: M79.622 Pain in left upper arm (principal); R79.89 Other specified abnormal findings of blood chemistry; I10 Essential (primary) hypertension; I25.10 Atherosclerotic heart disease of native coronary artery without angina pectoris; R00.1 Bradycardia, unspecified; I44.0 Atrioventricular block, first degree; G47.33 Obstructive sleep apnea (adult) (pediatric); Z99.89 Dependence on other enabling machines and devices; E03.9 Hypothyroidism, unspecified; R91.1 Solitary pulmonary nodule; R56.9 Unspecified convulsions; M10.9 Gout, unspecified; E29.1 Testicular hypofunction; M54.17 Radiculopathy, lumbosacral region; M54.50 Low back pain, unspecified; G89.29 Other chronic pain; M25.561 Pain in right knee; R13.10 Dysphagia, unspecified; E11.9 Type 2 diabetes mellitus without complications; Z79.84 Long term (current) use of oral hypoglycemic drugs; Z79.1 Long term (current) use of non-steroidal anti-inflammatories (NSAID); Z79.82 Long term (current) use of aspirin; Z95.2 Presence of prosthetic heart valve; N99.110 Postprocedural urethral stricture, male, meatal; Z95.5 Presence of coronary angioplasty implant and graft; Z96.653 Presence of artificial knee joint, bilateral; Z96.649 Presence of unspecified artificial hip joint; Z86.79 Personal history of other diseases of the circulatory system; Z87.39 Personal history of other diseases of the musculoskeletal system and connective tissue; Z86.73 Personal history of transient ischemic attack (TIA), and cerebral infarction without residual deficits; Z85.51 Personal history of malignant neoplasm of bladder; Z87.891 Personal history of nicotine dependence; Z83.3 Family history of diabetes mellitus; Z82.49 Family history of ischemic heart disease and other diseases of the circulatory system; Z80.8 Family history of malignant neoplasm of other organs or systems
CPT/HCPCS: 36415; 71046; 80053; 82948; 83690; 83735; 84484; 85025; 85610; 85730; 93005; 99199; 99285; A9270; G0378

== ENCOUNTER 2025-08-28 00:50 | Day surgery (SDC) | payer MEDICARE, SELFPAY ==
[2025-08-17 11:52] VITALS: BMI 36.3
--- NOTE | 2025-08-17 12:07 | PC.NURSE ---
[facility] has started construction of its new state of the art ER which will open Spring 2026. With this, we anticipate parking may be a challenge for some our surgical patients and families. Parking spaces are limited but are available for all Surgical, obstetrics, and ER patients sharing this lot. If you arrive and find you are having a hard time finding a parking space, please note that we understand the challenges, please drive around the hospital and park near Hospital Entrance 1. When you enter this entrance, you can ask a volunteer to direct or take you back to the surgical waiting area to check in. We appreciate everyone?s understanding of these expected challenges while we build for your future. Report to the Outpatient Waiting Room, entrance under the green pavilion located off [address], at time ___0600am____ on date ___08/28/25____. Planned Procedure Time: _0730am .? Time changes happen often and if your time is changed the preop area will call you the afternoon before. - You and your visitor will be asked to self-screen and do not enter if you have any COVID symptoms. Please call surgeon if you need to reschedule. - A mask is optional within the hospital at this time. Patients may have clear liquids (water, carbonated beverages, clear teas, apple juice) until 3 hours prior to surgery with a maximum of 20 ounces. - No food from midnight until time of surgery and no smoking, or chewing tobacco (or any form of nicotine). No chewing gum, candy or mints. (0430am) Take only the following medications with a SIP of water on the morning of surgery: ___Amlodipine, Coreg, Levothyroxine DO NOT STOP ANY OF YOUR OTHER PRESCRIPTION MEDICATIONS PRIOR TO SURGERY EXCEPT THE FOLLOWING Hold all vitamins and supplements for 7 days per Urology. Date of last dose 08/20/25 Medications to discontinue per physician NSAIDS/ ASA for [address] Laureano Date to take last dose____08/20/25 Pt stopped Aspirin last week after his Urology appt. PCP and all Dr aware per pt. Please no make-up, nail kazakh, hairspray, perfume, deodorant, or body powder the day of surgery.? No jewelry (including any body piercings) or valuables the day of surgery, leave them at home.? Please take a shower or bath the night before, or the morning of, surgery with an antibacterial soap.? Wear comfortable, loose fitting clothing.? - Jewelry must be removed prior to entering the operating room.? Rings and piercings that are not removed may be cut off. - The hospital will not accept responsibility for valuables.? - Please leave all valuables, including medications, at home the day of surgery. If you are going home after surgery, a licensed rental car ferry driver must drive you home.? - NO public transportation without another adult if you receive anesthesia. - We recommend that an adult stay with you for 24 hours following discharge. - We also recommend that you do not drive, make important decision, drink alcoholic beverages, or take any drugs that were not prescribed by your health care provider for at least 24 hours after your discharge time. Follow any additional instructions given to you from your surgeon. Telephone instructions given to Patient and asked if any additional questions and then verbalized understanding. Patient advised to call surgeon office or pre surgery nurse liaison [phone] if any additional questions.
[2025-08-28] VITALS (11 sets, daily range): BP systolic 117–152; BP diastolic 46–80; PULSE 50–72; RESP 12–20; TEMP 36.2–36.4; O2SAT 96–100
[2025-08-28] MEDS: LACTATED RINGERS 1,000 ML 30 ML IV CONT (06:40)
--- NOTE | 2025-08-28 07:00 | WPDANESEPPF ---
Anes - Initial Pre Proc Eval Procedure: Operation Date: 08/28/25 07:30 Proposed Procedures p Cystoscopy, Bladder Biopsy, Fulguration, Ayala Catheter Placement with Intravesicle Gemcitabine Instillation - Og Laureano MD Date/Time: 08/28/25 07:00 Surgeon: Og Laureano MD Pre Op Diagnosis: bladder CA Patient Data Age: 85 Gender: M Height: 1.8 m Weight: 119.7 kg Allergies Allergy/AdvReac Type Severity Reaction Status Date / Time morphine Allergy Intermediate Itching Verified 08/28/25 06:22 oxycodone (From Percocet) AdvReac Severe Confusion Verified 08/28/25 06:22 MARIA LUZ Inhibitors AdvReac Mild Cough Verified 08/28/25 06:22 lisinopril AdvReac Mild Cough Verified 08/28/25 06:22 Home Medications ?Medication ?Instructions ?Recorded ?Confirmed ?Type omega-3 fatty acids 1,000 mg 2,000 mg PO DAILY 05/16/20 08/28/25 History capsule (Fish Oil Concentrate) psyllium husk 0.52 gram capsule 1.04 g PO HS 02/20/21 08/28/25 History (Metamucil) blood-glucose meter (Blood Glucose #1 ea 11/04/22 08/22/25 Rx Monitoring kit) lancets 23 gauge #100 ea 11/04/22 08/22/25 Rx vibegron 75 mg tablet (Gemtesa) [address] Fajardo 09/08/23 08/28/25 History dapagliflozin propaned 10 1 tablet PO DAILY #90 tabs 06/29/25 08/28/25 Rx mg-metformin ER 1,000 mg tablet,ext rel 24hr blood sugar diagnostic (True #100 strips 07/19/25 08/22/25 Rx Metrix Glucose Test Strip) allopurinol 300 mg tablet 300 mg PO DAILY 08/15/25 08/28/25 History atorvastatin 80 mg tablet 80 mg PO DAILY 08/15/25 08/28/25 History candesartan 32 mg tablet 32 mg PO DAILY 08/15/25 08/28/25 History carvedilol 25 mg tablet 25 mg PO DAILY 08/15/25 08/28/25 History celecoxib 200 mg capsule 200 mg PO Q12H 08/15/25 08/28/25 History hydrochlorothiazide 25 mg tablet 25 mg PO DAILY 08/15/25 08/28/25 History levothyroxine 100 mcg tablet 100 mcg PO DAILY 08/15/25 08/28/25 History linagliptin 5 mg tablet (Tradjenta) 5 mg PO DAILY 08/15/25 08/28/25 History metformin 500 mg tablet 500 mg PO HS 08/15/25 08/28/25 History lorazepam 1 mg tablet 1 mg PO .PM PRN anxiety 08/17/25 08/22/25 History amlodipine 10 mg tablet See Rx Instructions .Route 08/27/25 08/28/25 Rx .COMPLEX #90 tabs Laboratory Tests 08/28/25 06:41 POC Capillary Glucose 162 H mg/dl (65-105) Patient hx anesthesia problems: none Family hx anesthesia problems: none Results Review: All pre-operative results and documents have been reviewed as part of the pre-operative evaluation. [facility] Past Medical History Medical History Balance disorder Lumbosacral radiculopathy Lumbosacral radiculopathy at S1 CTS (carpal tunnel syndrome) Chronic pain of right knee Lung nodule Gout Insomnia Ruptured abdominal aortic aneurysm s/p repair, being monitored Testosterone deficiency Chronic low back pain LOUANN (obstructive sleep apnea) On CPAP Hx of transient ischemic attack (TIA) Bladder cancer Hypothyroidism (acquired) History of CVA (cerebrovascular accident) Hearing loss DM type 2 (diabetes mellitus, type 2) DJD (degenerative joint disease), multiple sites Mixed hyperlipidemia Benign essential hypertension ASHD (arteriosclerotic heart disease) Surgical History Surgical History Coronary artery disease status post coronary stent insertion (2004) History of bilateral knee replacement History of intravascular stent placement Hx of hernia repair Status post urethral surgery Due to urethral stricture S/P AAA repair History of total hip replacement Family History Family History Father Diabetes mellitus Family history of coronary artery disease Family history of diabetes mellitus in first degree relative Mother Family history of cardiovascular disease Family history of malignant neoplasm of brain Family history of heart disease in male family member before age 55 Social History Social History Social History: The patient was for 53 years but been since proximally 2022. He and his raised 1 son. 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 He used to smoke approximately 1.5 packs of cigarettes per day but quit smoking in 2004. He drinks 1 alcoholic beverage a day. He denies illicit substance use. Code status: Full code (patient does not have formal advanced directives in place. He states that he would not want long-term ventilator support or a feeding tube) Surrogate decision maker: Son Smoking packs per day: 2 Smoking cigarettes per day: 40.0 Years smoked: 40 Smoking pack-years: 80.00 Smoking status: Former smoker Tobacco type: cigarettes Second hand tobacco smoke exposure: Yes Smoking end date: 11/01/04 Alcohol intake: current Drinks per week: 14 Alcohol use details: Daily; COCKTAILS AND WINE Substance use: never Substance use type: does not use Do You Feel Safe in your Home?: Yes Lack of Transportation: No Lack of Food: Never True Current Housing: I Have Housing Concerned About Future Housing: No Difficulty Paying Gas/Electric Bills: No Difficulty Paying for Meds: No Currently Unemployed: No Education: Master's Degree or Higher Difficulty w/ Childcare or Family Care: No Living arrangements: alone Occupation/Education: retired Gender identity (if verbalized by the patient): Male Spiritual care concerns: No Agree to blood products: Yes Anes - Eval Final PreProcedure Day of Procedure 08/28/25 07:00 Patient weight: obese Heart: regular rate and rhythm Lungs: decreased breath sounds Airway: Mallampati scale class III Neurological: alert and oriented Last oral intake: >/= 8 hours ASA classification: IV Emergent: no Anesthetic plan: proceed Anesthesia type and monitoring: general LMA and standard monitoring Results Review: All pre-operative results and documents have been reviewed as part of the pre-operative evaluation. Informed Consent: The patient's anesthetic plan and its attendant risks and benefits were discussed with the patient/family/POA. Questions were solicited and answers provided to the satisfaction of the patient/family/POA.
--- NOTE | 2025-08-28 07:15 | PM.HPGS ---
History of Present Illness History of Present Illness Consent: Risks, benefits, and alternatives have been discussed and questions answered. Patient agrees to proceed with procedure. Chief complaint: bladder CA Narrative: Reynold Machado is a 85 year old male with PMHx of CAD, CVA, DM, HTN, HLD history of bladder cancer was recently found to a have suspicious lesion on office surveillance cystoscopy. Patient presents today for endoscopic management of these lesions. The patient confirms that he has been holding his aspirin for the last 7 days. He denies any changes past his baseline is ready for the procedure today Review of Systems Review of Systems: Constitutional: No fevers or chills Eyes: No changes in vision HENT: No hearing loss Cardiovascular: No chest pain or palpitations Respiratory: No shortness of breath, cough, wheezing GI: No abdominal pain, nausea, or vomiting : No dysuria or difficulty urinating Heme: No easy bruising or bleeding Skin: No rash or itching MSK: No myalgias or joint pain Psych: No hallucinations Neuro: No lateralized numbness or tingling PMFSH Past Medical History Medical History Balance disorder Lumbosacral radiculopathy Lumbosacral radiculopathy at S1 CTS (carpal tunnel syndrome) Chronic pain of right knee Lung nodule Gout Insomnia Ruptured abdominal aortic aneurysm s/p repair, being monitored Testosterone deficiency Chronic low back pain LOUANN (obstructive sleep apnea) On CPAP Hx of transient ischemic attack (TIA) Bladder cancer Hypothyroidism (acquired) History of CVA (cerebrovascular accident) Hearing loss DM type 2 (diabetes mellitus, type 2) DJD (degenerative joint disease), multiple sites Mixed hyperlipidemia Benign essential hypertension ASHD (arteriosclerotic heart disease) Surgical History Surgical History Coronary artery disease status post coronary stent insertion (2004) History of bilateral knee replacement History of intravascular stent placement Hx of hernia repair Status post urethral surgery Due to urethral stricture S/P AAA repair History of total hip replacement Family History Family History Father Diabetes mellitus Family history of coronary artery disease Family history of diabetes mellitus in first degree relative Mother Family history of cardiovascular disease Family history of malignant neoplasm of brain Family history of heart disease in male family member before age 55 Social History Social History Social History: The patient was for 53 years but been since proximally 2022. He and his raised 1 son. 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 He used to smoke approximately 1.5 packs of cigarettes per day but quit smoking in 2004. He drinks 1 alcoholic beverage a day. He denies illicit substance use. Code status: Full code (patient does not have formal advanced directives in place. He states that he would not want long-term ventilator support or a feeding tube) Surrogate decision maker: Son Smoking packs per day: 2 Smoking cigarettes per day: 40.0 Years smoked: 40 Smoking pack-years: 80.00 Smoking status: Former smoker Tobacco type: cigarettes Second hand tobacco smoke exposure: Yes Smoking end date: 11/01/04 Alcohol intake: current Drinks per week: 14 Alcohol use details: Daily; COCKTAILS AND WINE Substance use: never Substance use type: does not use Do You Feel Safe in your Home?: Yes Lack of Transportation: No Lack of Food: Never True Current Housing: I Have Housing Concerned About Future Housing: No Difficulty Paying Gas/Electric Bills: No Difficulty Paying for Meds: No Currently Unemployed: No Education: Master's Degree or Higher Difficulty w/ Childcare or Family Care: No Living arrangements: alone Occupation/Education: retired Gender identity (if verbalized by the patient): Male Spiritual care concerns: No Agree to blood products: Yes Meds Home Medications and Allergies Home Medications ?Medication ?Instructions ?Recorded ?Confirmed ?Type omega-3 fatty acids 1,000 mg 2,000 mg PO DAILY 05/16/20 08/28/25 History capsule (Fish Oil Concentrate) psyllium husk 0.52 gram capsule 1.04 g PO HS 02/20/21 08/28/25 History (Metamucil) blood-glucose meter (Blood Glucose #1 ea 11/04/22 08/22/25 Rx Monitoring kit) lancets 23 gauge #100 ea 11/04/22 08/22/25 Rx vibegron 75 mg tablet (Gemtesa) [address] Fajardo 09/08/23 08/28/25 History dapagliflozin propaned 10 1 tablet PO DAILY #90 tabs 06/29/25 08/28/25 Rx mg-metformin ER 1,000 mg tablet,ext rel 24hr blood sugar diagnostic (True #100 strips 07/19/25 08/22/25 Rx Metrix Glucose Test Strip) allopurinol 300 mg tablet 300 mg PO DAILY 08/15/25 08/28/25 History atorvastatin 80 mg tablet 80 mg PO DAILY 08/15/25 08/28/25 History candesartan 32 mg tablet 32 mg PO DAILY 08/15/25 08/28/25 History carvedilol 25 mg tablet 25 mg PO DAILY 08/15/25 08/28/25 History celecoxib 200 mg capsule 200 mg PO Q12H 08/15/25 08/28/25 History hydrochlorothiazide 25 mg tablet 25 mg PO DAILY 08/15/25 08/28/25 History levothyroxine 100 mcg tablet 100 mcg PO DAILY 08/15/25 08/28/25 History linagliptin 5 mg tablet (Tradjenta) 5 mg PO DAILY 08/15/25 08/28/25 History metformin 500 mg tablet 500 mg PO HS 08/15/25 08/28/25 History lorazepam 1 mg tablet 1 mg PO .PM PRN anxiety 08/17/25 08/22/25 History amlodipine 10 mg tablet See Rx Instructions .Route 08/27/25 08/28/25 Rx .COMPLEX #90 tabs Allergies Allergy/AdvReac Type Severity Reaction Status Date / Time morphine Allergy Intermediate Itching Verified 08/28/25 06:22 oxycodone (From Percocet) AdvReac Severe Confusion Verified 08/28/25 06:22 MARIA LUZ Inhibitors AdvReac Mild Cough Verified 08/28/25 06:22 lisinopril AdvReac Mild Cough Verified 08/28/25 06:22 Vital Signs Vital Signs - 24 hr 08/28/25 06:15 Temperature 36.2 C L Pulse Rate 70 Respiratory Rate 18 Blood Pressure 138/46 L Pulse Oximetry 99 Oxygen Delivery Room Air Exam Narrative: General: Alert, no acute distress Head: Normocephalic, atraumatic Eyes: Extraocular movements intact Neck: No JVD, trachea midline Respiratory: Symmetric chest rise, nonlabored breathing on room air CV: Normal rate, adequate peripheral perfusion Abdomen: Soft, nontender, nondistended : Deferred Skin: Warm/dry Extremities: No peripheral edema, no cyanosis Neuro: No focal deficits Psych: Answers questions appropriately, appropriate mood Assessment and Plan Assessment and plan (1) Bladder tumor: Code(s): D49.4 - Neoplasm of unspecified behavior of bladder Status: Acute Assessment and Plan: 85-year-old male with history of bladder cancer who was found to have suspicious bladder lesion on recent office surveillance cystoscopy Plan - To OR for cystoscopy, bladder biopsy and fulguration, Ayala catheter placement with intravesical installation of gemcitabine - Risks, benefits, alternatives reviewed. The patient is amenable to proceed. - Anticipate discharge home thereafter
--- NOTE | 2025-08-28 07:21 | WPDHPUPDATE1 ---
History and Physical Update Update Date/Time: 08/28/25 07:21 History and Physical has been reviewed, including an updated exam of the patient. There are NO changes in the patient's condition. Risks, benefits, and alternatives have been discussed and questions answered. Patient agrees to proceed with procedure.
[2025-08-28] MEDS: ceFAZolin 2 GM in SODIUM CHLORIDE 0.9% IV 50 ML 100 ML IVPB (07:28)
--- NOTE | 2025-08-28 07:51 | S_PTH ---
PATIENT: Reynold Machado LOC: [facility] U#:[id number] AGE/SX: 85/M ROOM: RE08/28/[address]: Og Laureano MD : 1940 BED: DIS: 08/28/2025 SPEC #: [id number] RECD: 08/28/25 09:11 STATUS: LORENA REQ #: [id number] VICKI: 08/28/25 07:[address]: Og Laureano DEPT: [facility] Surgical RECD BY: Omega Marie ENTERED: 08/28/25 09:11 SP TYPE: Surgical OTHR DR: Roberto Saleem MD Tissues: A - Bladder Tumor B - Bladder Tumor Procedures: Hematoxylin and Eosin Stain Gross and Microscopic Level 4 CK 20
--- NOTE | 2025-08-28 08:09 | W.PM.PROC2 ---
Procedure Note - Detailed Date of Procedure 08/28/25 Pre-op Diagnosis Bladder cancer Post-op Diagnosis Same Procedure Performed 1. Cystoscopy 2. Bladder biopsy and fulguration 3. Complex Ayala catheter placement 4. Intravesical instillation of gemcitabine Surgeon Og Laureano MD Anesthesia General Findings 1. 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 Orthotopic ureteral orifices bilaterally. At the posterior left upper wall of the bladder there was a small raised papillary tumor less than 0.5 cm in size. There was also a small flat erythematous lesion at the posterior midline bladder. There were no other suspicious lesions, tumors, active bleeding, or stones in the lower urinary tract. 2. Successful bladder biopsy and fulguration of the aforementioned 2 suspicious bladder lesions/tumors 3. Excellent hemostasis at the conclusion of the case 4. Successful Ayala catheter placement with an 18 Italian coude catheter and instillation of 2 g of gemcitabine and 100 mL of sterile saline Description of Procedure After informed consent was obtained, the patient was brought back to the operating theatre and placed in the supine position on the operating table. Pre-operative antibiotics were confirmed to have been administered. Anesthesia was induced. The patient was moved into the dorsal lithotomy position and prepped and draped in the standard sterile fashion for an endoscopic case. All pressure points were padded. Bilateral sequential compression devices were on and noted to be functioning. A formal timeout was performed with Dr. Laureano in attendance to confirm the correct patient, site/laterality, and procedure and all were in agreement to proceed. To begin with, I atraumatically advanced a lubricated 22-Italian rigid cystoscope transurethrally into the patient's bladder. Pancystoscopy was performed with findings as noted above. I then turned my attention to the small raised papillary tumor at the left upper posterior bladder wall. I used flexible biopsy forceps to take biopsy x3 of this area, which was sent as a specimen for pathologic analysis in formalin. I then used a Bugbee fulgurator to obtain hemostasis at this site. Next, I turned my attention to the flat erythematous lesion at the posterior midline bladder wall. I used the flexible biopsy forceps to take biopsy x2 of this area, which was sent off as a separate specimen for pathologic analysis in formalin. I then used the fulgurator to obtain hemostasis. There were a couple mild oozers at the bladder neck secondary to scope manipulation at the 8:00 a.m. and 2:00 a.m. positions which were also cauterized using the fulgurator. The patient's bladder was then cycled multiple times and excellent hemostasis was confirmed. I then left the patient's bladder partially full and removed the cystoscope. Next, I advanced an 18 Italian coude Ayala catheter transurethrally into the patient's bladder inflated 10 mL sterile water in the balloon. The balloon was seated at the bladder neck and clear urine output was noted. The catheter was connected to a gravity drainage bag and the patient was sent to recovery in stable condition. In the recovery room, I instilled 2 g of gemcitabine in 100 mL of sterile saline per hospital protocol. This essentially concluded the case. At the conclusion of the case all sponge, instrument, and sharp counts were correct x 2. The patient tolerated the procedure well and there were no immediate complications noted.
[2025-08-28] MEDS: SODIUM CHLORIDE 0.9% IV 23.7 ML, GEMCITABINE HCL 1,000 MG BLADDER ×2 (08:16→08:18)
[2025-08-28] MEDS: NACL 0.9% IRRIGATION POUR BOTTL 1,000 ML 150 ML IRRIGATION (09:20)
--- NOTE | 2025-08-28 09:29 | SUR.PHASEI ---
0920 - pt turned and repositioned every 20 minutes after instillation of medication. pt gautam well.
== END 2025-08-28 10:40 | disposition home or self-care (01) ==
PROVIDERS: PCP Internal Medicine; Visit Provider Urology
PROC: 0TBB8ZX Excision of Bladder, Via Natural or Artificial Opening Endoscopic, Diagnostic (ICD-10-PCS; CPT 52204; principal; 2025-08-28 07:30)
DX: C67.4 Malignant neoplasm of posterior wall of bladder (principal); N30.20 Other chronic cystitis without hematuria; E11.9 Type 2 diabetes mellitus without complications; I10 Essential (primary) hypertension; I25.10 Atherosclerotic heart disease of native coronary artery without angina pectoris; E78.5 Hyperlipidemia, unspecified; Z86.73 Personal history of transient ischemic attack (TIA), and cerebral infarction without residual deficits; Z87.891 Personal history of nicotine dependence
CPT/HCPCS: 52204; 51720; 82948; 88305; 88342; J0690; J2704; J3010; J7120; J9201

== ENCOUNTER 2025-09-03 10:00 | Outpatient (RCR) | payer MEDICARE, SELFPAY | END 2025-09-03 23:59 | disposition home or self-care (01) | LOC: ANHAUDIO 10:00 | PROVIDERS: PCP Internal Medicine; Visit Provider Internal Medicine | DX: Z46.1 Encounter for fitting and adjustment of hearing aid (principal) | CPT/HCPCS: 99199; V5261 ==